=== PATIENT | female | born 1955 | race Caucasian/White ===

== ENCOUNTER 2016-10-22 11:20 | Inpatient (IN) ==
[2016-10-22] MEDS ORDERED: Ipratropium/Albuterol Neb 3 ML IH ONE (12:38)
[2016-10-22] MEDS ORDERED: methylPREDNISolone 125 MG/2 ML VIAL IVP ONE (12:38)
[2016-10-22 13:17] LABS: Basophils % 0.4 %; Eosinophils # 0.4 K/mcL (0.0-0.6); Eosinophils % 5.1 %; Hematocrit 35.4 % (35.3-44.9); Hemoglobin 11.6 g/dL (11.5-15.4); Immature Granulocytes % 0.4 % (0-4); Lymphocytes # 1.9 K/mcL (0.6-4.6); Lymphocytes % 25.1 %; Mean Corpuscular HGB Conc 32.8 g/dL (31.6-35.5); Mean Corpuscular Hemoglobin 27.7 pg (28.0-33.3); Mean Corpuscular Volume 84.5 fL (83.0-100.0); Mean Platelet Volume 9.3 fL (9.4-12.4); Monocytes # 0.5 K/mcL (0.0-1.3); Monocytes % 6.5 %; Neutrophils # 4.7 K/mcL (1.6-8.9); Platelet Count 241 K/mcL (140-400); Red Blood Count 4.19 M/mcL (3.82-4.97); Red Cell Distribution Width 14.4 % (11.5-14.5); Segmented Neutrophils % 62.5 %
--- NOTE | 2016-10-22 13:24 | Emergency Department Note ---
Disposition Clinical Impression: Acute exacerbation of chronic obstructive airways disease Disposition: Admitted As Inpatient Condition: Fair Referrals: Ray Garcia MD [Primary Care Provider] - Forms: ED Satisfaction Letter Time of Disposition: 14:23 SOB HPI - General Chief Complaint: ED Shortness of Breath/Dyspnea Stated Complaint: ROBER x2 weeks Time Seen by Provider: 10/22/16 12:32 Source: patient Limitations: no limitations Nursing Notes Reviewed: Yes Vital Signs Reviewed: Yes - History of Present Illness 61-year-old COPD comes in with increasing shortness of breath the last 2 weeks. Pt Subjective Complaint: shortness of breath, cough Onset (ago): day(s) Context: recent illness Severity: moderate Consistency/Duration: constant Improves with: nothing Worsens with: exertion Known history of: COPD Associated symptoms: Reports: cough, wheezing Treatment prior to arrival: oxygen - Related Data Home Medications Medication Instructions Recorded Confirmed Albuterol Neb [Proventil Neb] 2.5 mg IH TID 06/22/15 07/15/16 Budesonide/Formoterol 160/4.5 2 puff IH BID 06/22/15 07/15/16 [Symbicort] Roflumilast [Daliresp] 500 mcg PO QAM 06/22/15 07/15/16 Albuterol Sulfate [Proair Hfa] 2 puff IH Q4H PRN 07/14/16 07/15/16 Atorvastatin Calcium [Lipitor] 80 mg PO QAM 07/14/16 07/15/16 Cholecalciferol (Vitamin D3) 50,000 unit PO QWEEK 07/14/16 07/15/16 [Vitamin D3] Cyclobenzaprine [Flexeril] 10 mg PO HS 07/14/16 07/15/16 Sertraline [Zoloft] 50 mg PO DAILY 07/15/16 07/15/16 Previous Rx's Medication Instructions Recorded Benzonatate [Tessalon] 200 mg PO TID PRN 28 Days 07/17/16 Cefdinir [Omnicef] 300 mg PO BID 4 Days 07/17/16 Guaifenesin [Mucinex] 600 mg PO BID #30 tab.er.[id number] 07/17/16 Ipratropium/Albuterol Neb [Duoneb] 3 ml IH QIDR 14 Days 07/17/16 Metoprolol [Lopressor] 12.5 mg PO BIDWM 30 Days 07/17/16 PredniSONE 20 mg PO DAILY #12 tablet 07/17/16 Promethazine/Codeine 5 ml PO Q6HR 14 Days 07/17/16 [Phenergan/Codeine] Allergies Allergy/AdvReac Type Severity Reaction Status Date / Time omeprazole Allergy Hives Verified 07/14/16 12:33 acetaminophen [From Vicodin] AdvReac Headache Verified 07/15/16 13:34 hydrocodone [From Vicodin] AdvReac Headache Verified 07/15/16 13:34 metoprolol AdvReac Vomiting Verified 07/15/16 13:34 Constitutional: Denies: fever, chills, weakness, weight change Eyes: Denies: eye pain, eye discharge, vision change ENT ED: Denies: ear pain, throat pain, dental pain, hearing loss, epistaxis, congestion, dysphagia Cardiovascular: Denies: chest pain, palpitations, dyspnea on exertion, edema, syncope Respiratory: Reports: cough, dyspnea, wheezes. Denies: hemoptysis, stridor Gastrointestinal: Denies: abdominal pain, nausea, vomiting, diarrhea, constipation, hematemesis, melena, hematochezia Genitourinary: Denies: dysuria, frequency, hematuria, discharge Musculoskeletal: Denies: back pain, neck pain, arthralgia, myalgia Integumentary: Denies: rash, abrasion, lesions Neurological: Denies: headache, weakness, numbness, paresthesias, confusion, abnormal gait, vertigo Psychiatric: Denies: anxiety, depression, suicidal thoughts, homicidal thoughts , auditory hallucinations, visual hallucinations Endocrine: Denies: fatigue Hematological/Lymphatic: Denies: easy bleeding, easy bruising Allergic/Immunologic: Denies: facial swelling, urticaria Past Medical History - Past Medical History Medical history: Reports: CHF, COPD, diabetes, GERD, glaucoma, hyperlipidemia, hypertension, other Surgical history: Reports: cataract, other (ex lap 1979 - benign uterine tumor in ) 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: Reports: anxiety, depression - Social History Smoking Status: Former smoker Smokeless Tobacco Status: No Alcohol use: Reports: none Drug use: Reports: none Physical Exam - General Limitations: no limitations General appearance: alert, in no apparent distress - Head Head exam: atraumatic, normocephalic, normal inspection - Eye Eye exam: Present: normal appearance, PERRL, EOMI - ENT ENT exam: normal exam, normal oropharynx, mucous membranes moist - Neck Neck exam: Present: normal inspection, full ROM, trachea midline - Chest Chest inspection: Present: normal inspection, symmetric chest wall rise - Respiratory Respiratory exam: Present: respiratory distress (Mild), wheezes, accessory muscle use, prolonged expiratory phase - Cardiovascular Cardiovascular exam: Present: regular rate, normal rhythm, normal heart sounds - Abdominal Exam Abdominal exam: Present: soft, Non-Tender. Absent: tenderness, distention, guarding, rebound, rigidity - Extremities Exam Extremities exam: Present: normal inspection, full ROM. Absent: tenderness, pedal edema - Expanded Lower Extremity Exam Neurovascular/Tendon exam: Absent: motor deficit, sensory deficit, tendon deficit Gait: observed and normal - Back Exam Back exam: Present: normal inspection, full ROM. Absent: tenderness - Neurological Exam Neurological exam: Present: alert, oriented X3 - Psychiatric Psychiatric exam: Present: normal affect, normal mood - Skin Skin exam: Present: warm, dry, intact, normal color Course - Reevaluation(s) Reevaluation #1: 61 Yo female with a history of COPD with increasing shortness of breath. Time: 14:22 - Consultations Consultation #1: Discussed with , admit. Time: 14:23 Vital Signs Temperature 98.2 F 10/22/16 12:11 Pulse Rate 101 10/22/16 12:11 Respiratory Rate 24 10/22/16 12:11 Blood Pressure 118/75 10/22/16 12:11 O2 Sat by Pulse Oximetry 92 L 10/22/16 12:11 Temperature 98.2 F 10/22/16 12:11 Pulse Rate 83 10/22/16 13:34 Respiratory Rate 24 10/22/16 12:51 Blood Pressure 120/77 10/22/16 13:34 O2 Sat by Pulse Oximetry 97 10/22/16 13:34 Oxygen Delivery Oxygen Delivery Nasal Cannula Shortness of Breath/Dyspnea - Lab Data Result diagrams: 10/22/16 12:59 10/22/16 12:59 Lab Results 10/22/16 10/22/16 10/22/16 Range/Units 12:59 12:59 12:59 WBC 7.5 (4.3-11.1) K/mcL RBC 4.19 (3.82-4.97) M/mcL Hgb 11.6 (11.5-15.4) g/dL Hct 35.4 (35.3-44.9) % MCV 84.5 (83.0-100.0) fL MCH 27.7 L (28.0-33.3) pg MCHC 32.8 (31.6-35.5) g/dL RDW 14.4 (11.5-14.5) % Plt Count 241 (140-400) K/mcL MPV 9.3 L (9.4-12.4) fL Immature Gran % 0.4 (0-4) % Seg Neutrophils % 62.5 % Lymphocytes % 25.1 % Monocytes % 6.5 % Eosinophils % 5.1 % Basophils % 0.4 % Neutrophils # 4.7 (1.6-8.9) K/mcL Lymphocytes # 1.9 (0.6-4.6) K/mcL Monocytes # 0.5 (0.0-1.3) K/mcL Eosinophils # 0.4 (0.0-0.6) K/mcL Basophils # 0.0 (0.0-0.2) K/mcL Sodium 139 (136-145) mEq/L Potassium 4.1 (3.5-4.5) mEq/L Chloride 106 (98-109) mEq/L Carbon Dioxide 26 (19-29) mEq/L BUN 15 (7-20) mg/dL Creatinine 0.69 (0.57-1.11) mg/dL Est GFR ( Amer) > 60 (> 60) Est GFR (Non-Af Amer) > 60 (> 60) BUN/Creatinine Ratio 22 (6-26) Glucose 106 H (70-99) mg/dL Calculated Osmolality 289 (280-300) Calcium 9.4 (8.6-10.8) mg/dL Troponin I 0.00 (0-0.03) ng/mL B-Natriuretic Peptide (0-100) pg/mL 10/22/16 Range/Units 12:59 WBC (4.3-11.1) K/mcL RBC (3.82-4.97) M/mcL Hgb (11.5-15.4) g/dL Hct (35.3-44.9) % MCV (83.0-100.0) fL MCH (28.0-33.3) pg MCHC (31.6-35.5) g/dL RDW (11.5-14.5) % Plt Count (140-400) K/mcL MPV (9.4-12.4) fL Immature Gran % (0-4) % Seg Neutrophils % % Lymphocytes % % Monocytes % % Eosinophils % % Basophils % % Neutrophils # (1.6-8.9) K/mcL Lymphocytes # (0.6-4.6) K/mcL Monocytes # (0.0-1.3) K/mcL Eosinophils # (0.0-0.6) K/mcL Basophils # (0.0-0.2) K/mcL Sodium (136-145) mEq/L Potassium (3.5-4.5) mEq/L Chloride (98-109) mEq/L Carbon Dioxide (19-29) mEq/L BUN (7-20) mg/dL Creatinine (0.57-1.11) mg/dL Est GFR ( Amer) (> 60) Est GFR (Non-Af Amer) (> 60) BUN/Creatinine Ratio (6-26) Glucose (70-99) mg/dL Calculated Osmolality (280-300) Calcium (8.6-10.8) mg/dL Troponin I (0-0.03) ng/mL B-Natriuretic Peptide < 10 (0-100) pg/mL
[2016-10-22 13:27] LABS: BUN/Creatinine Ratio 22 (6-26); Blood Urea Nitrogen 15 mg/dL (7-20); Calcium 9.4 mg/dL (8.6-10.8); Carbon Dioxide 26 mEq/L (19-29); Chloride 106 mEq/L (98-109); Glucose 106 mg/dL (70-99); Osmolality,Calculated 289 (280-300); Potassium 4.1 mEq/L (3.5-4.5); Sodium 139 mEq/L (136-145); eGFR For African Americans > 60 (> 60); eGFR For Non-African Americans > 60 (> 60)
[2016-10-22] MEDS ORDERED: Azithromycin 500 MG in D5% in Water 250 ML IVPB ONE (14:21)
[2016-10-22] MEDS ORDERED: Naloxone 0.4 MG/ML INJ IVP PRN (14:46)
[2016-10-22] MEDS ORDERED: Albuterol 2.5 MG/3 ML NEBULIZER IH PRN (14:51)
--- NOTE | 2016-10-22 15:06 | Internal Med History&Physical ---
<Maxi Ponce - Last Filed: 10/22/16 19:40> Date of Encounter: 10/22/16 Internal Medicine - H&P: HPI History of present illness: Ms. Leon is a 61 year old female Internal Medicine - H&P: Meds Albuterol Neb [Proventil Neb] 2.5 mg IH QID PRN 06/22/15 [History] Budesonide/Formoterol 160/4.5 [Symbicort] 2 puff IH BID 06/22/15 [History] Roflumilast [Daliresp] 500 mcg PO QAM 06/22/15 [History] Albuterol Sulfate [Proair Hfa] 2 puff IH Q4H PRN 07/14/16 [History] Atorvastatin Calcium [Lipitor] 80 mg PO QAM 07/14/16 [History] Sertraline [Zoloft] 50 mg PO DAILY 07/15/16 [History] Metoprolol [Lopressor] 12.5 mg PO BIDWM 30 Days 07/17/16 [Rx] Aspirin Enteric Coated [Aspirin EC] 81 mg PO DAILY 10/22/16 [History] Cyanocobalamin (Vitamin B-12) [Vitamin B-12] 500 mcg PO DAILY 10/22/16 [History] Cyclosporine [Restasis] 1 each OP BID 10/22/16 [History] Ergocalciferol (VITAMIN D2) [Vitamin D] 800 unit PO DAILY 10/22/16 [History] Ferrous Sulfate 325 mg PO DAILY 10/22/16 [History] Furosemide [Lasix] 20 mg PO DAILY 10/22/16 [History] Guaifenesin [Mucinex] 600 mg PO Q12H PRN 10/22/16 [History] Olopatadine HCl [Pataday] 1 drop BOTH EYES QAM 10/22/16 [History] Omeprazole [PriLOSEC] 20 mg PO DAILY 10/22/16 [History] Potassium Chloride [K-Tab ER] 20 meq PO DAILY 10/22/16 [History] Travoprost [Travatan Z] 1 drop OP QPM 10/22/16 [History] Allergies methylprednisolone [From Solu-Medrol] Allergy (Verified 10/22/16 15:40) Itching acetaminophen [From Vicodin] Adverse Reaction (Verified 07/15/16 13:34) Headache hydrocodone [From Vicodin] Adverse Reaction (Verified 07/15/16 13:34) Headache All Systems PM: A 10-system review of systems was performed and is negative for pertinent findings except as documented above in the HPI. - Constitutional Vitals: Temp Pulse Resp BP Pulse Ox 98.2 F 98 20 99/61 95 10/22/16 19:02 10/22/16 19:02 10/22/16 19:02 10/22/16 19:02 10/22/16 19:02 Internal Med - H&P Results - Labs CBC & Chem 7: 10/22/16 12:59 10/22/16 12:59 - Attending Attestation I examined this patient and my medical decision-making was reviewed with the Advanced Practice Provider. I agree with the documented findings, disposition and treatment plan as described except to the extent set forth below. Patient presented to the hospital with shortness of breath. On exam she has bilateral expiratory wheezes and prolonged expiratory phase. She states that in the past she developed itchiness after treatment with Solu-Medrol however there are times when she has no adverse reaction. She received Solu-Medrol IV earlier today in the emergency department and had no description of any adverse reaction. I suspect she likely does not have a true allergy to methylprednisolone and therefore will continue therapy with IV Solu-Medrol while closely monitoring for side effects. <Ilda Jackson M - Last Filed: 10/22/16 22:20> Date of Encounter: 10/22/16 Time of Encounter: 15:02 Assessment and Plan (1) Acute exacerbation of chronic obstructive airways disease Current visit: Yes Status: Acute Patient with increased shortness of breath and productive cough. She has increased oxygen requirements as well, needing 3L around the clock versus her baseline of 2.5L at night and PRN. Solumedrol 80mg IVP BID Duoneb treatments QIDR Albuterol Nebulizer Q2 PRN Azithromycin 500mg IVPB daily Guaifenisen 600mg BID Tessalon PRN for cough Continue home dose of Roflumilast and budesonide/formotorol. titrate O2 to maintain oxygen saturation > 90%. (2) Pre-diabetes Current visit: Yes Status: Acute Last Hgb A1c of 6.3% in June. Patient will be getting steroids as treatment for her COPD exacerbation. Diabetic diet check blood sugars ACHS Sliding scale correction dose TIDWM hypoglycemic protocol. (3) Chronic respiratory failure Current visit: No Status: Acute Patient requires 2.5L of oxygen at home overnight and as needed during the day. In the last few weeks, she has needed to increase to 3L around the clock. Solumedrol 80mg IVP BID Duoneb treatments QIDR Albuterol Nebulizer Q2 PRN Continue home dose of Roflumilast and budesonide/formotorol. titrate O2 to maintain oxygen saturation > 90%. Qualifiers: Respiratory failure complication: hypoxia Qualified Code(s): J96.11 - Chronic respiratory failure with hypoxia (4) DVT prophylaxis Current visit: No Status: Acute Encourage ambulation anti-embolic stockings Lovenox 40mg SQ daily Internal Medicine - H&P: HPI Chief complaint: shortness of breath Admitted From: Emergency Dept Plans for Post Hospital Care: Home History of present illness: Ms. Leon is a 61 year old female with hypertension, hyperlipidemia, borderline diabetes, COPD who presented to the emergency department today with increasing shortness of breath. Patient reports that a few weeks ago she started coughing and her coughing and shortness of breath has been worsening ever since. She normally uses 2.5 L of oxygen by nasal cannula overnight and as needed during the day, but lately she has not been needing 3 L all the time. Her cough is productive of clear to whitish sputum. She has been wheezing, and she has been experiencing chest tightness. Evaluation in the emergency department included a chest x-ray that showed no acute process, troponin was negative, white blood cell count was normal at 7.5. She received 125 mg of Solu -Medrol and DuoNeb treatment as well as the first dose of azithromycin in the emergency department. On exam, patient is alert and oriented, in no acute distress. She is audible wheezes. Lungs have diffuse wheezing and rhonchi bilaterally. Heart has regular rate and rhythm. Past Med Surg Social Fam HX - Past Medical History Medical history: COPD, diabetes, GERD, glaucoma, hyperlipidemia, hypertension, other 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: anxiety, depression - Past Surgical History Surgical History: cataract, other (ex lap 1979 - benign uterine tumor in ) - Social History Smoking Status: Former smoker (100+ pack year history) Smokeless Tobacco Status: No Alcohol use: none Drug use: none - Family History Mother Adopted: No Living Status: Hx Family Cancer: Yes (pancreatic) Father Living Status: Hx Family Endocrine Disorder: Yes (diabetes) All Systems PM: A 10-system review of systems was performed and is negative for pertinent findings except as documented above in the HPI. - Constitutional Constitutional: no chills, no fever(s), no night sweats - EENT Eyes: no change in vision, no discharge, no pain, no photophobia Ears: no ear discharge, no ear pain, no tinnitus Nose, mouth and throat: no dysphagia, no nasal discharge, no neck pain, no sore throat - Cardiovascular Cardiovascular ROS IM: no chest pain, no diaphoresis, no dyspnea, no lightheadedness, no palpitations, no syncope - Respiratory Respiratory: cough, dyspnea, dyspnea on exertion, wheezing, pain on inspiration , chest congestion, excessive phlegm production - Gastrointestinal Gastrointestinal: no abdominal pain, no diarrhea, no hematemesis, no hematochezia, no melena, no nausea, no vomiting - Genitourinary Genitourinary: no change in urinary stream, no dysuria, no flank pain, no hematuria - Musculoskeletal Musculoskeletal ROS IM: no numbness, no tingling - Integumentary Integumentary IM: no rash, no unusual bruising - Neurological Neurological ROS: no confusion, no convulsions, no focal weakness, no numbness, no tingling, no tremor(s) - Hematologic/Lymphatic Hematologic/Lymphatic: no easy bruising - Constitutional Vitals: Temp Pulse Resp BP Pulse Ox 98.2 F 83 24 120/77 97 10/22/16 12:11 10/22/16 13:34 10/22/16 12:51 10/22/16 13:34 10/22/16 13:34 General appearance: Present: A&O X 3, pleasant, no acute distress - Head Head exam: Present: atraumatic, normocephalic - Eye Eye exam: Present: PERRL, conjuntiva pink, sclera anicteric Pupils: Present: PERRL - Neck Neck exam general surgery: Present: supple, trachea midline. Absent: lymphadenopathy - Respiratory Respiratory exam: Present: prolonged expiratory phase, rhonchi, wheezes. Absent : accessory muscle use, rales - Cardiovascular Cardiovascular exam: Present: RRR, +S1, +S2. Absent: diastolic murmur, gallop, rubs, systolic murmur - GI/Abdominal GI/Abdominal exam: Present: normal bowel sounds, soft, no peritoneal signs. Absent: distended, tenderness - Extremities Exam Extremities exam: Present: warm, radial pulses palpable and symetrical. Absent : calf tenderness, cyanotic, pedal edema - Neurological Exam Neurological exam: Present: CN II-XII intact, oriented X3, no focal deficits. Absent: facial droop, speech deficit - Skin Skin exam: Present: dry, intact Internal Med - H&P Results - Labs CBC & Chem 7: 10/22/16 12:59 10/22/16 12:59 Labs: All Lab Results (24 Hours) 10/22/16 10/22/16 10/22/16 Range/Units 12:59 12:59 12:59 WBC 7.5 (4.3-11.1) K/mcL RBC 4.19 (3.82-4.97) M/mcL Hgb 11.6 (11.5-15.4) g/dL Hct 35.4 (35.3-44.9) % MCV 84.5 (83.0-100.0) fL MCH 27.7 L (28.0-33.3) pg MCHC 32.8 (31.6-35.5) g/dL RDW 14.4 (11.5-14.5) % Plt Count 241 (140-400) K/mcL MPV 9.3 L (9.4-12.4) fL Immature Gran % 0.4 (0-4) % Seg Neutrophils % 62.5 % Lymphocytes % 25.1 % Monocytes % 6.5 % Eosinophils % 5.1 % Basophils % 0.4 % Neutrophils # 4.7 (1.6-8.9) K/mcL Lymphocytes # 1.9 (0.6-4.6) K/mcL Monocytes # 0.5 (0.0-1.3) K/mcL Eosinophils # 0.4 (0.0-0.6) K/mcL Basophils # 0.0 (0.0-0.2) K/mcL Sodium 139 (136-145) mEq/L Potassium 4.1 (3.5-4.5) mEq/L Chloride 106 (98-109) mEq/L Carbon Dioxide 26 (19-29) mEq/L BUN 15 (7-20) mg/dL Creatinine 0.69 (0.57-1.11) mg/dL Est GFR ( Amer) > 60 (> 60) Est GFR (Non-Af Amer) > 60 (> 60) BUN/Creatinine Ratio 22 (6-26) Glucose 106 H (70-99) mg/dL Calculated Osmolality 289 (280-300) Calcium 9.4 (8.6-10.8) mg/dL Troponin I 0.00 (0-0.03) ng/mL B-Natriuretic Peptide (0-100) pg/mL 10/22/16 Range/Units 12:59 WBC (4.3-11.1) K/mcL RBC (3.82-4.97) M/mcL Hgb (11.5-15.4) g/dL Hct (35.3-44.9) % MCV (83.0-100.0) fL MCH (28.0-33.3) pg MCHC (31.6-35.5) g/dL RDW (11.5-14.5) % Plt Count (140-400) K/mcL MPV (9.4-12.4) fL Immature Gran % (0-4) % Seg Neutrophils % % Lymphocytes % % Monocytes % % Eosinophils % % Basophils % % Neutrophils # (1.6-8.9) K/mcL Lymphocytes # (0.6-4.6) K/mcL Monocytes # (0.0-1.3) K/mcL Eosinophils # (0.0-0.6) K/mcL Basophils # (0.0-0.2) K/mcL Sodium (136-145) mEq/L Potassium (3.5-4.5) mEq/L Chloride (98-109) mEq/L Carbon Dioxide (19-29) mEq/L BUN (7-20) mg/dL Creatinine (0.57-1.11) mg/dL Est GFR ( Amer) (> 60) Est GFR (Non-Af Amer) (> 60) BUN/Creatinine Ratio (6-26) Glucose (70-99) mg/dL Calculated Osmolality (280-300) Calcium (8.6-10.8) mg/dL Troponin I (0-0.03) ng/mL B-Natriuretic Peptide < 10 (0-100) pg/mL
[2016-10-22] MEDS ORDERED: Dextrose Gel 15 GM PO PRN ×2 (15:13)
[2016-10-22] MEDS ORDERED: *HR* Dextrose 50 % in Water (Syg) 50 ML SYRINGE IVP PRN (15:13)
[2016-10-22] MEDS ORDERED: D5% in Water 1,000 ML IV PRN (15:13)
[2016-10-22] MEDS: Ipratropium/Albuterol Neb 3 ML IH SCH ×2 (16:14→21:50)
[2016-10-22] MEDS: Insulin LISPRO 300 UNITS/3 ML VIAL SQ SCH (16:46)
[2016-10-22] MEDS: methylPREDNISolone 125 MG/2 ML VIAL IVP SCH (16:47)
[2016-10-22 16:50] LABS: Hemoglobin A1C 6.5 %
[2016-10-22] MEDS: Benzonatate 100 MG CAPSULE PO PRN (21:15)
[2016-10-22] MEDS: Ibuprofen 400 MG TABLET PO PRN (21:24)
[2016-10-22] MEDS: Budesonide/Formoterol 160/4.5 MDI IH SCH (21:51)
[2016-10-23] MEDS: Ipratropium/Albuterol Neb 3 ML IH SCH ×5 (03:31→23:43)
--- NOTE | 2016-10-23 04:02 | Electrocardiograph Report ---
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
[2016-10-23] MEDS: *HR* Enoxaparin 40 MG/0.4 ML SYRINGE SQ SCH (06:24)
[2016-10-23] MEDS: Benzonatate 100 MG CAPSULE PO PRN (06:24)
[2016-10-23] MEDS: methylPREDNISolone 125 MG/2 ML VIAL IVP SCH ×2 (06:24→17:33)
[2016-10-23] MEDS: Insulin LISPRO 300 UNITS/3 ML VIAL SQ SCH ×3 (07:14→17:32)
[2016-10-23 07:26] LABS: BUN/Creatinine Ratio 25 (6-26); Blood Urea Nitrogen 19 mg/dL (7-20); Calcium 9.4 mg/dL (8.6-10.8); Carbon Dioxide 22 mEq/L (19-29); Chloride 104 mEq/L (98-109); Glucose 159 mg/dL (70-99); Osmolality,Calculated 292 (280-300); Sodium 138 mEq/L (136-145); eGFR For African Americans > 60 (> 60); eGFR For Non-African Americans > 60 (> 60)
[2016-10-23 07:31] LABS: Basophils % 0.1 %; Hematocrit 36.2 % (35.3-44.9); Hemoglobin 11.5 g/dL (11.5-15.4); Immature Granulocytes % 0.6 % (0-4); Lymphocytes % 9.1 %; Mean Corpuscular HGB Conc 31.8 g/dL (31.6-35.5); Mean Corpuscular Hemoglobin 27.4 pg (28.0-33.3); Mean Corpuscular Volume 86.4 fL (83.0-100.0); Mean Platelet Volume 9.8 fL (9.4-12.4); Monocytes # 0.3 K/mcL (0.0-1.3); Neutrophils # 9.5 K/mcL (1.6-8.9); Platelet Count 249 K/mcL (140-400); Red Blood Count 4.19 M/mcL (3.82-4.97); Red Cell Distribution Width 14.6 % (11.5-14.5); Segmented Neutrophils % 87.2 %
[2016-10-23 07:53] LABS: Potassium 4.7 mEq/L (3.5-4.5)
[2016-10-23] MEDS ORDERED: (Roflumilast [Daliresp] 500 MCG) PO SCH (09:00)
--- NOTE | 2016-10-23 10:13 | Internal Med Progress Note ---
Date of Encounter: 10/23/16 Time of Encounter: 08:45 - Assessment and plan (1) Acute exacerbation of chronic obstructive airways disease Current Visit: Yes Status: Acute Assessment and plan: Patient with persistent, productive cough with thick white sputum. Patient stating her shortness of breath has not improved since admission. Duo nebs changed to every 4. Continue Solu-Medrol. We will continue pulmonary toilet. On examination, aeration poor to fair with diffuse expiratory wheezing present. Moderate respiratory distress. ITS Impressions Chest X-Ray 10/22/16 12:16 IMPRESSION: No acute process. D/ / Hari Rossi MD / Hari Rossi MD Interpreting Provider: Hari Rossi MD (2) CHF (congestive heart failure) Current Visit: No Status: Chronic Assessment and plan: Patient had an echocardiogram on 06/06 4/6 ejection fraction of 60-65%. She is on furosemide at home, suspect chronic diastolic heart failure. No acute exacerbation, holding furosemide at this time. (3) COPD (chronic obstructive pulmonary disease) Current Visit: No Status: Chronic (4) Chronic respiratory failure Current Visit: No Status: Chronic Assessment and plan: Acute on chronic. At home, patient is usually on 2.5 L per nasal cannula at bedtime and as needed throughout the day however lately, she has been on 3 L continuously. She is currently on 3 L, will continue to trend, she will likely need qualified for continuous oxygen upon disposition Qualifiers: Respiratory failure complication: hypoxia Qualified Code(s): J96.11 - Chronic respiratory failure with hypoxia (5) DVT prophylaxis Current Visit: No Status: Acute Assessment and plan: Subcutaneous Lovenox (6) GERD (gastroesophageal reflux disease) Current Visit: No Status: Chronic (7) Diabetes Current Visit: No Status: Chronic Assessment and plan: A1c 6.5%-this appears to be a new diagnosis for her as she is not on any diabetes medications at home, follow-up outpatient, will have low-dose sliding scale while admitted given that she is getting steroids Qualifiers: Diabetes mellitus type: type 2 Diabetes mellitus complication status: without complication Diabetes mellitus continuous churn buttermaker insulin use: without snf use Qualified Code(s): E11.9 - Type 2 diabetes mellitus without complications (8) Essential hypertension Current Visit: No Status: Chronic Assessment and plan: Controlled. At home, she is on metoprolol 12.5 twice a day, furosemide 20 mg daily. Will hold furosemide at this time and continue her Lopressor (9) Former heavy tobacco smoker Current Visit: Yes Status: Chronic Assessment and plan: Patient stating she smoked 3-4 packs per day for 35 years. She states that she has not smoked since 1993. - Subjective Interval history: Patient seen and examined. On examination, patient sitting upright on the side of her bed eating breakfast. She states her shortness of breath has not improved thus far. She complains of a severe persistent cough that is "making my whole body hurt." - Constitutional Vitals: Temp Pulse Resp BP Pulse Ox 97.7 F 92 14 116/67 96 10/23/16 07:13 10/23/16 07:13 10/23/16 07:13 10/23/16 07:13 10/23/16 07:13 General appearance: Present: mild distress (moderate), A&O X 3, pleasant, answers questions appropriately - Head Head exam: Present: atraumatic, normocephalic - Eye Eye exam: Present: PERRL, conjuntiva pink, sclera anicteric Pupils: Present: PERRL - Neck Neck exam general surgery: Present: supple, trachea midline. Absent: lymphadenopathy - Respiratory Respiratory exam: Present: accessory muscle use, decreased breath sounds, prolonged expiratory phase, respiratory distress, wheezes. Absent: rales, rhonchi - Cardiovascular Cardiovascular exam: Present: RRR, +S1, +S2. Absent: diastolic murmur, gallop, rubs, systolic murmur - GI/Abdominal GI/Abdominal exam: Present: normal bowel sounds, soft, no peritoneal signs. Absent: distended, tenderness - Extremities Exam Extremities exam: Present: warm, radial pulses palpable and symetrical. Absent : calf tenderness, cyanotic, pedal edema - Neurological Exam Neurological exam: Present: alert, CN II-XII intact, normal gait, oriented X3, no focal deficits, strengths equal and symetr throughout. Absent: pronater drift, facial droop, speech deficit - Skin Skin exam: Present: dry, intact, pallor, warm Internal Medicine: Result - Labs CBC & Chem 7: 10/23/16 06:11 10/23/16 06:11 Labs: Short CBC 10/23/16 Range/Units 06:11 WBC 10.9 (4.3-11.1) K/mcL Hgb 11.5 (11.5-15.4) g/dL Hct 36.2 (35.3-44.9) % Plt Count 249 (140-400) K/mcL Neutrophils # 9.5 H (1.6-8.9) K/mcL BMP 10/23/16 06:11 Sodium 138 Potassium 4.7 H Chloride 104 Carbon Dioxide 22 BUN 19 Creatinine 0.75 Glucose 159 H Calcium 9.4 - VTE Documentation of Mechanical Device: Graduated compression elastic hosiery Consult Discharge Plan - Plan Referrals: Ray Garcia MD [Primary Care Provider] -
[2016-10-23] MEDS: Budesonide/Formoterol 160/4.5 MDI IH SCH ×2 (11:00→21:23)
[2016-10-23] MEDS: Aspirin Enteric Coated 81 MG Tablet PO SCH (11:26)
[2016-10-23] MEDS: Azithromycin 500 MG in D5% in Water 250 ML IVPB SCH (14:41)
[2016-10-23] MEDS ORDERED: *HR* OxyCODONE/APAP 5/325 TABLET PO PRN (18:28)
[2016-10-24] MEDS: Ipratropium/Albuterol Neb 3 ML IH SCH ×6 (03:39→23:15)
[2016-10-24 05:01] LABS: BUN/Creatinine Ratio 28 (6-26); Blood Urea Nitrogen 21 mg/dL (7-20); Calcium 9.1 mg/dL (8.6-10.8); Carbon Dioxide 23 mEq/L (19-29); Chloride 107 mEq/L (98-109); Glucose 234 mg/dL (70-99); Osmolality,Calculated 301 (280-300); Potassium 4.2 mEq/L (3.5-4.5); Sodium 140 mEq/L (136-145); eGFR For African Americans > 60 (> 60); eGFR For Non-African Americans > 60 (> 60)
[2016-10-24] MEDS: methylPREDNISolone 125 MG/2 ML VIAL IVP SCH ×2 (06:00→18:12)
[2016-10-24] MEDS: *HR* Enoxaparin 40 MG/0.4 ML SYRINGE SQ SCH (06:03)
[2016-10-24] MEDS: Budesonide/Formoterol 160/4.5 MDI IH SCH ×2 (07:49→20:29)
[2016-10-24] MEDS: Aspirin Enteric Coated 81 MG Tablet PO SCH (09:29)
[2016-10-24] MEDS: (Roflumilast [Daliresp] 500 MCG) PO SCH (09:30)
[2016-10-24] MEDS: Insulin LISPRO 300 UNITS/3 ML VIAL SQ SCH ×3 (09:33→18:12)
--- NOTE | 2016-10-24 13:31 | Internal Med Progress Note ---
Date of Encounter: 10/24/16 Time of Encounter: 10:00 - Assessment and plan (1) Acute exacerbation of chronic obstructive airways disease Current Visit: Yes Status: Acute Assessment and plan: Patient with persistent, productive cough with thick white sputum. Patient states she feels better but is not back to her baseline and continues to endorse a severe cough. On examination, aeration slightly improved from yesterday though remains poor to fair. Continue Solu-Medrol. We will continue pulmonary toilet. Mild to moderate respiratory distress. Possible discharge tomorrow pending clinical outcomes. ITS Impressions Chest X-Ray 10/22/16 12:16 IMPRESSION: No acute process. D/ / Hari Rossi MD / Hari Rossi MD Interpreting Provider: Hari Rossi MD (2) CHF (congestive heart failure) Current Visit: No Status: Chronic Assessment and plan: Patient had an echocardiogram on 06/06 4/6 ejection fraction of 60-65%. She is on furosemide at home, suspect chronic diastolic heart failure. No acute exacerbation, holding furosemide at this time. (3) COPD (chronic obstructive pulmonary disease) Current Visit: No Status: Chronic (4) Chronic respiratory failure Current Visit: No Status: Chronic Assessment and plan: Acute on chronic. At home, patient is usually on 2.5 L per nasal cannula at bedtime and as needed throughout the day however lately, she has been on 3 L continuously. She is currently on 2.5L, will continue to trend, she will likely need qualified for continuous oxygen upon disposition Qualifiers: Respiratory failure complication: hypoxia Qualified Code(s): J96.11 - Chronic respiratory failure with hypoxia (5) DVT prophylaxis Current Visit: No Status: Acute Assessment and plan: Subcutaneous Lovenox (6) GERD (gastroesophageal reflux disease) Current Visit: No Status: Chronic (7) Diabetes Current Visit: No Status: Chronic Assessment and plan: A1c 6.5%-this appears to be a new diagnosis for her as she is not on any diabetes medications at home, follow-up outpatient, will have low-dose sliding scale while admitted given that she is getting steroids Qualifiers: Diabetes mellitus type: type 2 Diabetes mellitus complication status: without complication Diabetes mellitus supervisor long goods insulin use: without supervisor long goods use Qualified Code(s): E11.9 - Type 2 diabetes mellitus without complications (8) Essential hypertension Current Visit: No Status: Chronic Assessment and plan: Controlled. At home, she is on metoprolol 12.5 twice a day, furosemide 20 mg daily. Will hold furosemide at this time and continue her Lopressor (9) Former heavy tobacco smoker Current Visit: Yes Status: Chronic Assessment and plan: Patient stating she smoked 3-4 packs per day for 35 years. She states that she has not smoked since 1993. - Subjective Interval history: Patient seen and examined. On examination, patient sitting upright on the side of her bed talking on the telephone. She states she is feeling better but continues to endorse a severe cough. She is endorsing a normal appetite. - Constitutional Vitals: Temp Pulse Resp BP Pulse Ox 97.6 F 98 15 144/84 95 10/24/16 10:41 10/24/16 10:41 10/24/16 11:22 10/24/16 10:41 10/24/16 11:22 General appearance: Present: mild distress (moderate), A&O X 3, pleasant, answers questions appropriately - Head Head exam: Present: atraumatic, normocephalic - Eye Eye exam: Present: PERRL, conjuntiva pink, sclera anicteric Pupils: Present: PERRL - Neck Neck exam general surgery: Present: supple, trachea midline. Absent: lymphadenopathy - Respiratory Respiratory exam: Present: accessory muscle use, decreased breath sounds, prolonged expiratory phase, respiratory distress, wheezes. Absent: CTAB, rales , rhonchi - Cardiovascular Cardiovascular exam: Present: RRR, +S1, +S2. Absent: diastolic murmur, gallop, rubs, systolic murmur - GI/Abdominal GI/Abdominal exam: Present: normal bowel sounds, soft, no peritoneal signs. Absent: distended, tenderness - Extremities Exam Extremities exam: Present: warm, radial pulses palpable and symetrical. Absent : calf tenderness, cyanotic, pedal edema - Neurological Exam Neurological exam: Present: alert, CN II-XII intact, oriented X3, no focal deficits, strengths equal and symetr throughout. Absent: pronater drift, facial droop, speech deficit - Skin Skin exam: Present: dry, intact, pallor, warm Internal Medicine: Result - Labs CBC & Chem 7: 10/23/16 06:11 10/24/16 04:00 Labs: BMP 10/24/16 04:00 Sodium 140 Potassium 4.2 Chloride 107 Carbon Dioxide 23 BUN 21 H Creatinine 0.76 Glucose 234 H Calcium 9.1 - VTE Documentation of Mechanical Device: Graduated compression elastic hosiery Consult Discharge Plan - Plan Referrals: Ray Garcia MD [Primary Care Provider] -
[2016-10-24] MEDS: Benzonatate 100 MG CAPSULE PO SCH ×2 (18:11→21:28)
[2016-10-24] MEDS: Azithromycin 500 MG in D5% in Water 250 ML IVPB SCH (18:11)
[2016-10-24] MEDS: Ibuprofen 400 MG TABLET PO PRN (19:46)
[2016-10-25] MEDS: Ipratropium/Albuterol Neb 3 ML IH SCH ×6 (04:37→22:55)
[2016-10-25] MEDS: methylPREDNISolone 125 MG/2 ML VIAL IVP SCH (06:11)
[2016-10-25] MEDS: *HR* Enoxaparin 40 MG/0.4 ML SYRINGE SQ SCH (06:13)
[2016-10-25] MEDS: Insulin LISPRO 300 UNITS/3 ML VIAL SQ SCH ×3 (08:47→16:43)
[2016-10-25] MEDS: Benzonatate 100 MG CAPSULE PO SCH ×3 (08:47→20:28)
[2016-10-25] MEDS: Aspirin Enteric Coated 81 MG Tablet PO SCH (08:48)
[2016-10-25] MEDS: Furosemide 20 MG TABLET PO SCH (08:49)
[2016-10-25] MEDS: (Roflumilast [Daliresp] 500 MCG) PO SCH (08:49)
[2016-10-25] MEDS: Budesonide/Formoterol 160/4.5 MDI IH SCH ×2 (11:19→20:32)
[2016-10-25] MEDS ORDERED: GuaiFENesin/Codeine Oral Soln 5 ML UDC PO PRN (13:41)
[2016-10-25] MEDS ORDERED: Ipratropium/Albuterol Neb 3 ML IH PRN (13:59)
[2016-10-25] MEDS: Azithromycin 500 MG in D5% in Water 250 ML IVPB SCH (14:03)
--- NOTE | 2016-10-25 14:05 | Internal Med Progress Note ---
Date of Encounter: 10/25/16 Time of Encounter: 13:30 - Assessment and plan (1) Acute exacerbation of chronic obstructive airways disease Current Visit: Yes Status: Acute Assessment and plan: continue systemic steroids and bronchodilator support Decreased Solumedrol to 40mg IV q12h Continue O2 supplementation (pt reports of being on home oxygen) monitor O2 sat, goal O2 sat: 89-92% continue IV abx pt reports of being on home oxygen (2) Cough Current Visit: Yes Status: Acute Assessment and plan: added Guaifenesin with codeine prn cough (3) CHF (congestive heart failure) Current Visit: No Status: Chronic Assessment and plan: Not in acute exacerbation continue home dose of lasix Qualifiers: Congestive heart failure type: diastolic Congestive heart failure chronicity: chronic Qualified Code(s): I50.32 - Chronic diastolic (congestive ) heart failure (4) Diabetes Current Visit: No Status: Chronic Assessment and plan: New onset DM HbA1C: 6.5 currently hyperglycemia likely secondary to steroid therapy will closely monitor fingerstick and blood glucose continue sliding scale insulin therapy chemical educator counseling requested. Qualifiers: Diabetes mellitus type: type 2 Diabetes mellitus complication status: without complication Diabetes mellitus skilled nursing insulin use: without termite control service representative use Qualified Code(s): E11.9 - Type 2 diabetes mellitus without complications (5) Essential hypertension Current Visit: No Status: Chronic Assessment and plan: BP within acceptable range continue home medications (6) Hyperlipidemia Current Visit: No Status: Chronic Assessment and plan: continue home medications Qualifiers: Hyperlipidemia type: mixed hyperlipidemia Qualified Code(s): E78.2 - Mixed hyperlipidemia (7) Former heavy tobacco smoker Current Visit: Yes Status: Chronic Assessment and plan: Hx of 4ppd x 35years. Quit in 94. (8) DVT prophylaxis Current Visit: No Status: Acute Assessment and plan: Heparin SQ (9) Obesity Current Visit: Yes Status: Chronic Qualifiers: Obesity type: unspecified obesity type Obesity severity: non-morbid Qualified Code(s): E66.9 - Obesity, unspecified - Subjective Interval history: Patient is a 61y/o female who is admitted for acute respiratory distress secondary to COPD exacerbation. Patient seen and examined at bedside. Patient ambulating around the room however continues to have spells of cough that make her turn cyanotic. States she feels better however the cough is not improving. - Constitutional Vitals: Temp Pulse Resp BP Pulse Ox 98.2 F 97 18 120/73 94 L 10/25/16 11:15 10/25/16 11:15 10/25/16 11:19 10/25/16 11:15 10/25/16 11:19 General appearance: Present: A&O X 3, pleasant, no acute distress, obese, answers questions appropriately - Head Head exam: Present: atraumatic, normocephalic - Eye Eye exam: Present: normal appearance, conjuntiva pink, sclera anicteric - Respiratory Respiratory exam: Present: wheezes (bilateral expiratory wheezing). Absent: respiratory distress - Cardiovascular Cardiovascular exam: Present: RRR, +S1, +S2 - GI/Abdominal GI/Abdominal exam: Present: normal bowel sounds, soft, no peritoneal signs. Absent: distended, tenderness - Extremities Exam Extremities exam: Present: warm, radial pulses palpable and symetrical. Absent : calf tenderness, pedal edema, tenderness - Neurological Exam Neurological exam: Present: alert, oriented X3, no focal deficits - Psychiatric Psychiatric exam: Present: normal affect, normal mood Internal Medicine: Result - Labs CBC & Chem 7: 10/23/16 06:11 10/24/16 04:00 - VTE Documentation of Mechanical Device: Graduated compression elastic hosiery Consult Discharge Plan - Plan Referrals: Ray Garcia MD [Primary Care Provider] -
[2016-10-25] MEDS: *HR* Codeine Sulfate 30 MG TABLET PO PRN (14:29)
[2016-10-25] MEDS: Levofloxacin 500 MG/100 ML 500 MG/100 ML BAG IVPB SCH (15:51)
[2016-10-25] MEDS: MethylPREDNISolone 40 MG/ML VIAL IVP SCH (16:43)
[2016-10-26] MEDS: *HR* Codeine Sulfate 30 MG TABLET PO PRN ×3 (00:03→23:18)
[2016-10-26] MEDS: Ipratropium/Albuterol Neb 3 ML IH SCH ×6 (04:06→23:06)
[2016-10-26 05:15] LABS: Basophils % 0.2 %; Hematocrit 35.8 % (35.3-44.9); Hemoglobin 11.1 g/dL (11.5-15.4); Lymphocytes # 1.4 K/mcL (0.6-4.6); Lymphocytes % 12.3 %; Mean Corpuscular Hemoglobin 26.5 pg (28.0-33.3); Mean Corpuscular Volume 85.4 fL (83.0-100.0); Mean Platelet Volume 9.6 fL (9.4-12.4); Monocytes # 0.7 K/mcL (0.0-1.3); Monocytes % 6.1 %; Neutrophils # 9.1 K/mcL (1.6-8.9); Platelet Count 258 K/mcL (140-400); Red Blood Count 4.19 M/mcL (3.82-4.97); Red Cell Distribution Width 14.8 % (11.5-14.5); Segmented Neutrophils % 79.4 %
[2016-10-26 05:41] LABS: BUN/Creatinine Ratio 36 (6-26); Blood Urea Nitrogen 26 mg/dL (7-20); Calcium 8.8 mg/dL (8.6-10.8); Carbon Dioxide 28 mEq/L (19-29); Chloride 104 mEq/L (98-109); Glucose 141 mg/dL (70-99); Osmolality,Calculated 301 (280-300); Phosphorous 3.1 mg/dL (2.3-4.7); Potassium 4.2 mEq/L (3.5-4.5); Sodium 142 mEq/L (136-145); eGFR For African Americans > 60 (> 60); eGFR For Non-African Americans > 60 (> 60)
[2016-10-26] MEDS: *HR* Enoxaparin 40 MG/0.4 ML SYRINGE SQ SCH (06:52)
[2016-10-26] MEDS: MethylPREDNISolone 40 MG/ML VIAL IVP SCH ×2 (06:53→18:28)
[2016-10-26] MEDS: Insulin LISPRO 300 UNITS/3 ML VIAL SQ SCH ×3 (07:40→16:46)
[2016-10-26] MEDS: Budesonide/Formoterol 160/4.5 MDI IH SCH ×2 (07:54→19:45)
[2016-10-26] MEDS: (Roflumilast [Daliresp] 500 MCG) PO SCH (08:27)
[2016-10-26] MEDS: Aspirin Enteric Coated 81 MG Tablet PO SCH (08:28)
[2016-10-26] MEDS: Benzonatate 100 MG CAPSULE PO SCH ×3 (08:29→21:29)
[2016-10-26] MEDS: Levofloxacin 500 MG/100 ML 500 MG/100 ML BAG IVPB SCH (08:29)
[2016-10-26] MEDS: Furosemide 20 MG TABLET PO SCH (08:31)
--- NOTE | 2016-10-26 14:31 | Internal Med Progress Note ---
Date of Encounter: 10/26/16 Time of Encounter: 14:28 - Assessment and plan (1) Acute exacerbation of chronic obstructive airways disease Current Visit: Yes Status: Acute Assessment and plan: continue systemic steroids and bronchodilator support Continue Solumedrol to 40mg IV q12h Continue O2 supplementation (pt reports of being on home oxygen) monitor O2 sat, goal O2 sat: 89-92% continue IV abx pt reports of being on home oxygen (2) Cough Current Visit: Yes Status: Acute Assessment and plan: Guaifenesin with codeine prn cough (3) CHF (congestive heart failure) Current Visit: No Status: Chronic Assessment and plan: Not in acute exacerbation continue home dose of lasix Qualifiers: Congestive heart failure type: diastolic Congestive heart failure chronicity: chronic Qualified Code(s): I50.32 - Chronic diastolic (congestive ) heart failure (4) Diabetes Current Visit: No Status: Chronic Assessment and plan: New onset DM HbA1C: 6.5 currently hyperglycemia likely secondary to steroid therapy will closely monitor fingerstick and blood glucose continue sliding scale insulin therapy elementary educator counseling requested. Qualifiers: Diabetes mellitus type: type 2 Diabetes mellitus complication status: without complication Diabetes mellitus group home insulin use: without predatory animal exterminator use Qualified Code(s): E11.9 - Type 2 diabetes mellitus without complications (5) Essential hypertension Current Visit: No Status: Chronic Assessment and plan: BP within acceptable range continue home medications (6) Hyperlipidemia Current Visit: No Status: Chronic Assessment and plan: continue home medications Qualifiers: Hyperlipidemia type: mixed hyperlipidemia Qualified Code(s): E78.2 - Mixed hyperlipidemia (7) Former heavy tobacco smoker Current Visit: Yes Status: Chronic Assessment and plan: Hx of 4ppd x 35years. Quit in 94. (8) DVT prophylaxis Current Visit: No Status: Acute Assessment and plan: Heparin SQ (9) Obesity Current Visit: Yes Status: Chronic Qualifiers: Obesity type: unspecified obesity type Obesity severity: non-morbid Qualified Code(s): E66.9 - Obesity, unspecified - Subjective Interval history: Patient is a 61y/o female who is admitted for acute respiratory distress secondary to COPD exacerbation. Patient seen and examined at bedside, reports feeling better compared to the previous day. States the cough syrup is helping with her cough. Improvement in respiratory status noted. - Constitutional Vitals: Temp Pulse Resp BP Pulse Ox 98.0 F 75 18 121/69 98 10/26/16 10:46 10/26/16 10:46 10/26/16 11:20 10/26/16 10:46 10/26/16 11:20 General appearance: Present: A&O X 3, pleasant, no acute distress, obese, answers questions appropriately - Head Head exam: Present: atraumatic, normocephalic - Respiratory Respiratory exam: Present: decreased breath sounds. Absent: respiratory distress, wheezes - Cardiovascular Cardiovascular exam: Present: RRR, +S1, +S2. Absent: diastolic murmur, gallop, rubs, systolic murmur - GI/Abdominal GI/Abdominal exam: Present: normal bowel sounds, soft, no peritoneal signs. Absent: distended, tenderness - Extremities Exam Extremities exam: Present: warm, radial pulses palpable and symetrical. Absent : calf tenderness, cyanotic, pedal edema - Neurological Exam Neurological exam: Present: alert, oriented X3 - Psychiatric Psychiatric exam: Present: normal affect, normal mood Internal Medicine: Result - Labs CBC & Chem 7: 10/26/16 04:23 10/26/16 04:23 Labs: Short CBC 10/26/16 Range/Units 04:23 WBC 11.5 H (4.3-11.1) K/mcL Hgb 11.1 L (11.5-15.4) g/dL Hct 35.8 (35.3-44.9) % Plt Count 258 (140-400) K/mcL Neutrophils # 9.1 H (1.6-8.9) K/mcL BMP 10/26/16 04:23 Sodium 142 Potassium 4.2 Chloride 104 Carbon Dioxide 28 BUN 26 H Creatinine 0.72 Glucose 141 H Calcium 8.8 - VTE Documentation of Mechanical Device: Graduated compression elastic hosiery Consult Discharge Plan - Plan Referrals: Ray Garcia MD [Primary Care Provider] -
[2016-10-27] MEDS: Ipratropium/Albuterol Neb 3 ML IH SCH ×4 (04:52→15:29)
[2016-10-27] MEDS: MethylPREDNISolone 40 MG/ML VIAL IVP SCH (05:49)
[2016-10-27] MEDS: *HR* Enoxaparin 40 MG/0.4 ML SYRINGE SQ SCH (05:50)
[2016-10-27] MEDS: Insulin LISPRO 300 UNITS/3 ML VIAL SQ SCH ×2 (07:27→12:02)
[2016-10-27] MEDS: Aspirin Enteric Coated 81 MG Tablet PO SCH (08:18)
[2016-10-27] MEDS: Benzonatate 100 MG CAPSULE PO SCH (08:18)
[2016-10-27] MEDS: Furosemide 20 MG TABLET PO SCH (08:19)
[2016-10-27] MEDS: (Roflumilast [Daliresp] 500 MCG) PO SCH (08:19)
[2016-10-27] MEDS: Budesonide/Formoterol 160/4.5 MDI IH SCH (08:35)
[2016-10-27 08:52] LABS: Basophils % 0.2 %; Hematocrit 41.4 % (35.3-44.9); Lymphocytes % 10.1 %; Mean Corpuscular HGB Conc 30.9 g/dL (31.6-35.5); Mean Corpuscular Hemoglobin 26.6 pg (28.0-33.3); Mean Corpuscular Volume 85.9 fL (83.0-100.0); Mean Platelet Volume 9.2 fL (9.4-12.4); Monocytes # 0.3 K/mcL (0.0-1.3); Monocytes % 2.9 %; Neutrophils # 8.6 K/mcL (1.6-8.9); Platelet Count 275 K/mcL (140-400); Red Blood Count 4.82 M/mcL (3.82-4.97); Red Cell Distribution Width 14.7 % (11.5-14.5); Segmented Neutrophils % 84.8 %
[2016-10-27 08:58] LABS: Hemoglobin 12.8 g/dL (11.5-15.4)
[2016-10-27] MEDS ORDERED: Levofloxacin 250 MG/50 ML 250 MG/50 ML BAG IVPB SCH (09:00)
[2016-10-27 09:07] LABS: BUN/Creatinine Ratio 36 (6-26); Blood Urea Nitrogen 29 mg/dL (7-20); Calcium 9.7 mg/dL (8.6-10.8); Carbon Dioxide 33 mEq/L (19-29); Chloride 97 mEq/L (98-109); Glucose 168 mg/dL (70-99); Magnesium 2.6 mg/dL (1.6-2.6); Osmolality,Calculated 300 (280-300); Potassium 4.7 mEq/L (3.5-4.5); Sodium 140 mEq/L (136-145); eGFR For African Americans > 60 (> 60); eGFR For Non-African Americans > 60 (> 60)
[2016-10-27 11:17] VITALS: BP 143/76
[2016-10-27] MEDS: Ibuprofen 400 MG TABLET PO PRN (12:05)
[2016-10-27] MEDS: *HR* Codeine Sulfate 30 MG TABLET PO PRN (12:06)
--- NOTE | 2016-10-27 13:40 | Discharge Summary ---
Date of Encounter: 10/27/16 Time of Encounter: 13:37 - Discharge Diagnosis (1) Acute exacerbation of chronic obstructive airways disease Priority: Primary Status: Acute (2) Cough Priority: Secondary Status: Acute (3) CHF (congestive heart failure) Priority: Secondary Status: Chronic Qualifiers: Congestive heart failure type: diastolic Congestive heart failure chronicity: chronic Qualified Code(s): I50.32 - Chronic diastolic (congestive ) heart failure (4) Diabetes Priority: Secondary Status: Chronic Qualifiers: Diabetes mellitus type: type 2 Diabetes mellitus complication status: without complication Diabetes mellitus skilled nursing insulin use: without terminal press operator use Qualified Code(s): E11.9 - Type 2 diabetes mellitus without complications (5) Essential hypertension Priority: Secondary Status: Chronic (6) Hyperlipidemia Priority: Secondary Status: Chronic Qualifiers: Hyperlipidemia type: mixed hyperlipidemia Qualified Code(s): E78.2 - Mixed hyperlipidemia (7) Former heavy tobacco smoker Priority: Secondary Status: Chronic (8) DVT prophylaxis Priority: Secondary Status: Acute (9) Obesity Priority: Secondary Status: Chronic Qualifiers: Obesity type: unspecified obesity type Obesity severity: non-morbid Qualified Code(s): E66.9 - Obesity, unspecified - Discharge Medications Prescriptions: GuaiFENesin/Codeine [ROBITUSSIN w/CODEINE] 5 ml PO Q6HR PRN #100 ml PRN Reason: Cough Metformin [Glucophage] 500 mg PO BIDWM #60 tablet PredniSONE 40 mg PO DAILY #7 tablet Home Medications: Albuterol Neb [Proventil Neb] 2.5 mg IH QID PRN 06/22/15 [History] Budesonide/Formoterol 160/4.5 [Symbicort] 2 puff IH BID 06/22/15 [History] Roflumilast [Daliresp] 500 mcg PO QAM 06/22/15 [History] Albuterol Sulfate [Proair Hfa] 2 puff IH Q4H PRN 07/14/16 [History] Atorvastatin Calcium [Lipitor] 80 mg PO QAM 07/14/16 [History] Sertraline [Zoloft] 50 mg PO DAILY 07/15/16 [History] Metoprolol [Lopressor] 12.5 mg PO BIDWM 30 Days 07/17/16 [Rx] Aspirin Enteric Coated [Aspirin EC] 81 mg PO DAILY 10/22/16 [History] Cyanocobalamin (Vitamin B-12) [Vitamin B-12] 500 mcg PO DAILY 10/22/16 [History] Cyclosporine [Restasis] 1 each OP BID 10/22/16 [History] Ergocalciferol (VITAMIN D2) [Vitamin D] 800 unit PO DAILY 10/22/16 [History] Ferrous Sulfate 325 mg PO DAILY 10/22/16 [History] Furosemide [Lasix] 20 mg PO DAILY 10/22/16 [History] Guaifenesin [Mucinex] 600 mg PO Q12H PRN 10/22/16 [History] Olopatadine HCl [Pataday] 1 drop BOTH EYES QAM 10/22/16 [History] Omeprazole [PriLOSEC] 20 mg PO DAILY 10/22/16 [History] Potassium Chloride [K-Tab ER] 20 meq PO DAILY 10/22/16 [History] Travoprost [Travatan Z] 1 drop OP QPM 10/22/16 [History] GuaiFENesin/Codeine [ROBITUSSIN w/CODEINE] 5 ml PO Q6HR PRN #100 ml 10/27/16 [Rx ] Metformin [Glucophage] 500 mg PO BIDWM #60 tablet 10/27/16 [Rx] PredniSONE 40 mg PO DAILY #7 tablet 10/27/16 [Rx] Allergies/Adverse Reactions: Allergies acetaminophen [From Vicodin] Adverse Reaction (Verified 07/15/16 13:34) Headache hydrocodone [From Vicodin] Adverse Reaction (Verified 07/15/16 13:34) Headache Date of admission: 10/23/16 13:19 Primary care physician: Ray Garcia Consults: 10/25/16 14:08 Consult to Infrastructure Analyst [CONS] Routine Comment: Discharging clinician: Larisa Huynh Anticipated date of discharge: 10/27/16 - Patient Status Disposition: Home, Self-Care Condition: Good Functional capacity at discharge: independent ambulation Overall status at discharge: patient is back to baseline - Discharge Instructions Instructions: Meal Planning with Diabetes Exchanges (GEN), Diabetes Mellitus Type 2 in Adults (DC) Follow Up With: Ray Garcia MD [Primary Care Provider] - Additional Instructions: Please follow up with your primary care physician within five days after your discharge from the hospital. Please continue Prednisone as prescribed. Please follow up with your machinery dismantler within one week after your discharge from the hospital. During this hospitalization you were found to have HbA1C of 6.5 which gives you the diagnosis of Diabetes Mellitus. You will be discharged with Metformin 500mg twice a day. Please inform your primary care physician of this new diagnosis and change. Please continue all your home medications as prescribed by your primary care physician. - Diet and Activity Activity: increase activity as tolerated, wear oxygen at all times Diet: diabetic diet, low salt diet Hospital course: Ms. Leon is a 61 year old female with PMH of hypertension, hyperlipidemia, borderline diabetes, severe COPD on home oxygen who was admitted for COPD exacerbation. She was started on IV steroids, antibiotics and bronchodilator support. Patient was also noted to be hyperglycemic and was found to have HbA1C of 6.5. She was started on insulin therapy while in house. At this time she is hemodynamically stable and will be discharged to home with follow up with her machinery dismantler and PCP. She will be started on Metformin and further antihyperglycemics will be added by her PCP. She is to continue oral prednisone after discharge. - Time Spent with Patient Total time spent providing and/or coordinating discharge services: Less than 30 minutes - Constitutional Vitals: Temp Pulse Resp BP Pulse Ox 97.3 F L 97 18 143/76 96 10/27/16 11:15 10/27/16 11:15 10/27/16 11:47 10/27/16 11:47 10/27/16 11:47 General appearance: Present: A&O X 3, pleasant, no acute distress, obese, answers questions appropriately - Head Head exam: Present: atraumatic, normocephalic - Eye Eye exam: Present: normal appearance, conjuntiva pink, sclera anicteric - Respiratory Respiratory exam: Present: decreased breath sounds. Absent: respiratory distress, wheezes - Cardiovascular Cardiovascular exam: Present: RRR, +S1, +S2. Absent: diastolic murmur, gallop, rubs, systolic murmur - GI/Abdominal GI/Abdominal exam: Present: normal bowel sounds, soft, no peritoneal signs. Absent: distended, tenderness - Extremities Exam Extremities exam: Present: warm, radial pulses palpable and symetrical. Absent : calf tenderness, cyanotic, pedal edema - Neurological Exam Neurological exam: Present: alert, oriented X3, no focal deficits - Psychiatric Psychiatric exam: Present: normal affect, normal mood - VTE Documentation of Mechanical Device: Graduated compression elastic hosiery
== END 2016-10-27 15:53 | disposition home or self-care (01) | DRG 191 ==
LOC: 3BNU 11:20 → EMEROO 11:20 → 3BNU 15:08 → SUATTDRO 10-23 13:19
PROVIDERS: ADMIT Internal Medicine; ATTEND Internal Medicine

== ENCOUNTER 2017-04-01 06:48 | Inpatient (IN) ==
[2017-04-01] MEDS ORDERED: methylPREDNISolone 125 MG/2 ML VIAL IVP ONE (06:50)
[2017-04-01] MEDS ORDERED: Ipratropium/Albuterol Neb 3 ML IH ONE ×2 (06:50→08:02)
--- NOTE | 2017-04-01 06:55 | Emergency Department Note ---
START Narrative - START START: 61 year old female presents to the ED via EMS for complaints of ROBER and is 2lnc dependent prn. Justin states that her oxygen needs have increased and that she has had increased productive cough with subjective fevers. EMS states her initial pulse ox with 2LNC was 90% and she sounded tight in the chest, she recieved one treatment per EMS crew. PAtinet states that she has COPD. Patient has audible wheezingin throughout bilateral lung lawson. WE will place justin on director of cardiac cath lab and start breathing treatments and do chest pain workup pathway. Justin will be signed out to day team (Christi). Plan is to followup throguh labs and monitor respiratory status and disposition based on patients ability to tolerate exertion without becoming hypoxic.
--- NOTE | 2017-04-01 07:19 | Emergency Department Note ---
Disposition Clinical Impression: COPD exacerbation Disposition: Admitted As Inpatient Condition: Fair Referrals: Ray Garcia MD [Primary Care Provider] - Forms: ED Satisfaction Letter Time of Disposition: 07:53 SOB HPI - General Chief Complaint: ED Shortness of Breath/Dyspnea Stated Complaint: zohreh Time Seen by Provider: 04/01/17 06:50 Source: patient Mode of arrival: EMS Limitations: no limitations Nursing Notes Reviewed: Yes Vital Signs Reviewed: Yes - History of Present Illness Pt Subjective Complaint: shortness of breath, cough Onset (ago): day(s) Severity: moderate Consistency/Duration: intermittent Improves with: oxygen, bronchodilators Worsens with: exertion, coughing Known history of: COPD Associated symptoms: Reports: other (Headache) Treatment prior to arrival: oxygen, bronchodilator Cough present: Yes Cough Frequency: Intermittent - Related Data Home oxygen amount: 2 liters Home Medications Medication Instructions Recorded Confirmed Albuterol Neb [Proventil Neb] 2.5 mg IH QID PRN 06/22/15 10/22/16 Budesonide/Formoterol 160/4.5 2 puff IH BID 06/22/15 10/22/16 [Symbicort] Roflumilast [Daliresp] 500 mcg PO QAM 06/22/15 10/22/16 Albuterol Sulfate [Proair Hfa] 2 puff IH Q4H PRN 07/14/16 10/22/16 Atorvastatin Calcium [Lipitor] 80 mg PO QAM 07/14/16 10/22/16 Sertraline [Zoloft] 50 mg PO DAILY 07/15/16 10/22/16 Aspirin Enteric Coated [Aspirin EC] 81 mg PO DAILY 10/22/16 10/22/16 Cyanocobalamin (Vitamin B-12) 500 mcg PO DAILY 10/22/16 10/22/16 [Vitamin B-12] Cyclosporine [Restasis] 1 each OP BID 10/22/16 10/22/16 Ergocalciferol (VITAMIN D2) 800 unit PO DAILY 10/22/16 10/22/16 [Vitamin D] Ferrous Sulfate 325 mg PO DAILY 10/22/16 10/22/16 Furosemide [Lasix] 20 mg PO DAILY 10/22/16 10/22/16 Guaifenesin [Mucinex] 600 mg PO Q12H PRN 10/22/16 10/22/16 Olopatadine HCl [Pataday] 1 drop BOTH EYES QAM 10/22/16 10/22/16 Omeprazole [PriLOSEC] 20 mg PO DAILY 10/22/16 10/22/16 Potassium Chloride [K-Tab ER] 20 meq PO DAILY 10/22/16 10/22/16 Travoprost [Travatan Z] 1 drop OP QPM 10/22/16 10/22/16 Previous Rx's Medication Instructions Recorded Metoprolol [Lopressor] 12.5 mg PO BIDWM 30 Days 07/17/16 GuaiFENesin/Codeine [ROBITUSSIN 5 ml PO Q6HR PRN #100 ml 10/27/16 w/CODEINE] metFORMIN [Glucophage] 500 mg PO BIDWM #60 tablet 10/27/16 predniSONE [PredniSONE] 40 mg PO DAILY #7 tablet 10/27/16 Azithromycin [Azithromycin 6-Tab 250 mg PO PER PKG DI #6 tab 03/10/17 Pack] PredniSONE [Deltasone] 40 mg PO DAILY 4 Days 03/10/17 Allergies Allergy/AdvReac Type Severity Reaction Status Date / Time acetaminophen [From Vicodin] AdvReac Headache Verified 07/15/16 13:34 hydrocodone [From Vicodin] AdvReac Headache Verified 07/15/16 13:34 All systems ED: reviewed and negative except as stated. Constitutional: Reports: as per HPI Eyes: Reports: as per HPI ENT ED: Reports: as per HPI Cardiovascular: Reports: dyspnea on exertion Respiratory: Reports: cough, dyspnea, wheezes Gastrointestinal: Reports: as per HPI Genitourinary: Reports: as per HPI Musculoskeletal: Reports: as per HPI Integumentary: Reports: as per HPI Neurological: Reports: headache Psychiatric: Reports: as per HPI Endocrine: Reports: as per HPI Hematological/Lymphatic: Reports: as per HPI Allergic/Immunologic: Reports: as per HPI Past Medical History - Past Medical History Source: patient Medical history: Reports: COPD, diabetes, GERD, glaucoma, hyperlipidemia, hypertension, other Surgical history: Reports: cataract, other (ex lap 1979 - benign uterine tumor in ) 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: Reports: anxiety, depression SAGGER SOAK history: Reports: other - Social History Smoking Status: Former smoker Smokeless Tobacco Status: No Alcohol use: Reports: none Drug use: Reports: none Physical Exam Tachypneic - General Limitations: no limitations General appearance: alert, in no apparent distress - Head Head exam: atraumatic - Eye Eye exam: Present: normal appearance - ENT ENT exam: normal exam - Neck Neck exam: Present: normal inspection - Chest Chest inspection: Present: normal inspection, symmetric chest wall rise - Respiratory Respiratory exam: Present: wheezes, accessory muscle use, prolonged expiratory phase - Cardiovascular Cardiovascular exam: Present: tachycardia, normal heart sounds - Rectal Exam Rectal exam: Present: deferred - Extremities Exam Extremities exam: Present: normal inspection. Absent: pedal edema - Neurological Exam Neurological exam: Present: alert, oriented X3, CN II-XII intact - Psychiatric Psychiatric exam: Present: normal affect, normal mood - Skin Skin exam: Present: warm, dry, intact Course Course Narrative: Patient presents to the emergency department with cough, wheezing, dyspnea. She has a known history of COPD that is oxygen dependent. She denies chest pain. EKG reviewed by me. Nebs ordered. Steroids ordered. I will continually assess - Reevaluation(s) Reevaluation #1: Patient reassessed. She states she is not back to baseline. Wheezing improved but persisted. Plan at this time is to admit the patient Reevaluation #2: Dr. Mcguire accepts admission Vital Signs Temperature 97.8 F 04/01/17 06:50 Pulse Rate 114 04/01/17 06:50 Respiratory Rate 22 04/01/17 06:50 Blood Pressure 155/83 04/01/17 06:50 O2 Sat by Pulse Oximetry 97 04/01/17 06:50 Temperature 97.8 F 04/01/17 06:50 Pulse Rate 109 04/01/17 07:30 Respiratory Rate 22 04/01/17 07:30 Blood Pressure 155/83 04/01/17 06:50 O2 Sat by Pulse Oximetry 98 04/01/17 07:30 Oxygen Delivery Oxygen Delivery Aerosol Mask Shortness of Breath/Dyspnea - Lab Data Lab results reviewed: Yes I reviewed the patient's lab results. Result diagrams: 04/01/17 07:35 04/01/17 07:35 Lab Results 04/01/17 04/01/17 04/01/17 Range/Units 07:35 07:35 07:35 WBC 7.0 (4.3-11.1) K/mcL RBC 4.60 (3.82-4.97) M/mcL Hgb 12.2 (11.5-15.4) g/dL Hct 39.3 (35.3-44.9) % MCV 85.4 (83.0-100.0) fL MCH 26.5 L (28.0-33.3) pg MCHC 31.0 L (31.6-35.5) g/dL RDW 14.9 H (11.5-14.5) % Plt Count 225 (140-400) K/mcL MPV 8.9 L (9.4-12.4) fL Immature Gran % 0.3 (0-4) % Seg Neutrophils % 52.8 % Lymphocytes % 33.2 % Monocytes % 6.5 % Eosinophils % 6.6 % Basophils % 0.6 % Neutrophils # 3.7 (1.6-8.9) K/mcL Lymphocytes # 2.3 (0.6-4.6) K/mcL Monocytes # 0.5 (0.0-1.3) K/mcL Eosinophils # 0.5 (0.0-0.6) K/mcL Basophils # 0.0 (0.0-0.2) K/mcL PT 10.0 (9.4-12.1) Seconds INR 0.9 APTT 27.3 (26.0-36.0) Seconds Sodium (136-145) mEq/L Potassium (3.5-4.5) mEq/L Chloride (98-109) mEq/L Carbon Dioxide (19-29) mEq/L BUN (7-20) mg/dL Creatinine (0.57-1.11) mg/dL Est GFR ( Amer) (> 60) Est GFR (Non-Af Amer) (> 60) BUN/Creatinine Ratio (6-26) Glucose (70-99) mg/dL Calculated Osmolality (280-300) Calcium (8.6-10.8) mg/dL Troponin I (0-0.03) ng/mL B-Natriuretic Peptide < 10 (0-100) pg/mL 04/01/17 04/01/17 Range/Units 07:35 07:35 WBC (4.3-11.1) K/mcL RBC (3.82-4.97) M/mcL Hgb (11.5-15.4) g/dL Hct (35.3-44.9) % MCV (83.0-100.0) fL MCH (28.0-33.3) pg MCHC (31.6-35.5) g/dL RDW (11.5-14.5) % Plt Count (140-400) K/mcL MPV (9.4-12.4) fL Immature Gran % (0-4) % Seg Neutrophils % % Lymphocytes % % Monocytes % % Eosinophils % % Basophils % % Neutrophils # (1.6-8.9) K/mcL Lymphocytes # (0.6-4.6) K/mcL Monocytes # (0.0-1.3) K/mcL Eosinophils # (0.0-0.6) K/mcL Basophils # (0.0-0.2) K/mcL PT (9.4-12.1) Seconds INR APTT (26.0-36.0) Seconds Sodium 140 (136-145) mEq/L Potassium 3.7 (3.5-4.5) mEq/L Chloride 107 (98-109) mEq/L Carbon Dioxide 25 (19-29) mEq/L BUN 20 (7-20) mg/dL Creatinine 0.74 (0.57-1.11) mg/dL Est GFR ( Amer) > 60 (> 60) Est GFR (Non-Af Amer) > 60 (> 60) BUN/Creatinine Ratio 27 H (6-26) Glucose 153 H (70-99) mg/dL Calculated Osmolality 296 (280-300) Calcium 10.2 (8.6-10.8) mg/dL Troponin I 0.02 (0-0.03) ng/mL B-Natriuretic Peptide (0-100) pg/mL - Radiology Data Radiology results reviewed: Yes I reviewed the patient's radiology results. - EKG Data EKG attestation: Yes I reviewed and interpreted this EKG. EKG results narrative: Sinus tachycardia [address] 133 QRS 87 QT/QTC 321/387. No acute ST segment elevation. Study compared to previous dated 03/10/70
[2017-04-01 07:51] LABS: Basophils % 0.6 %; Eosinophils # 0.5 K/mcL (0.0-0.6); Eosinophils % 6.6 %; Hematocrit 39.3 % (35.3-44.9); Hemoglobin 12.2 g/dL (11.5-15.4); Immature Granulocytes % 0.3 % (0-4); Lymphocytes # 2.3 K/mcL (0.6-4.6); Lymphocytes % 33.2 %; Mean Corpuscular Hemoglobin 26.5 pg (28.0-33.3); Mean Corpuscular Volume 85.4 fL (83.0-100.0); Mean Platelet Volume 8.9 fL (9.4-12.4); Monocytes # 0.5 K/mcL (0.0-1.3); Monocytes % 6.5 %; Neutrophils # 3.7 K/mcL (1.6-8.9); Platelet Count 225 K/mcL (140-400); Red Cell Distribution Width 14.9 % (11.5-14.5); Segmented Neutrophils % 52.8 %
[2017-04-01 08:03] LABS: BUN/Creatinine Ratio 27 (6-26); Blood Urea Nitrogen 20 mg/dL (7-20); Calcium 10.2 mg/dL (8.6-10.8); Carbon Dioxide 25 mEq/L (19-29); Chloride 107 mEq/L (98-109); Glucose 153 mg/dL (70-99); Osmolality,Calculated 296 (280-300); Potassium 3.7 mEq/L (3.5-4.5); Sodium 140 mEq/L (136-145); eGFR For African Americans > 60 (> 60); eGFR For Non-African Americans > 60 (> 60)
[2017-04-01 08:04] LABS: INR 0.9
[2017-04-01 08:07] LABS: Activated Partial Thrombo Time 27.3 Seconds (26.0-36.0)
[2017-04-01 08:19] LABS: Bilirubin,Urine Negative (Negative); Blood,Urine Small (Negative); Clarity,Urine Clear (Clear); Color,Urine Yellow (Yellow); Glucose,Urine (UA) Normal (Normal); Ketones,Urine Negative (Negative); Leukocyte Esterase,Urine Moderate (Negative); Nitrite,Urine Negative (Negative); PH,Urine 5.5 pH Units (5.0-8.0); Protein,Urine Negative (Neg-Trace); Specific Gravity,Urine 1.022 (1.010-1.025); Urobilinogen,Urine Normal (Normal)
[2017-04-01 08:24] LABS: Bacteria,Urine None Seen per hpf (None-Few); Hyaline Casts,Urine None Seen per lpf (None-Few); Squamous Epithelial Cell,Urine Moderate per lpf (None-Few); WBC,Urine 15-30 per hpf (0-3)
[2017-04-01] MEDS ORDERED: MOM Conc 10 ML UD.LIQ PO PRN (08:55)
[2017-04-01] MEDS ORDERED: Mag Hydrox/Al Hydrox/Simeth 30 ML UDC PO PRN (08:55)
[2017-04-01] MEDS ORDERED: Naloxone 0.4 MG/ML INJ IVP PRN (08:55)
[2017-04-01] MEDS ORDERED: Ondansetron 4 MG/2 ML VIAL IVP PRN (08:55)
[2017-04-01] MEDS ORDERED: Albuterol 2.5 MG/3 ML NEBULIZER IH PRN (09:06)
[2017-04-01] MEDS ORDERED: D5% in Water 1,000 ML IVC PRN (09:16)
[2017-04-01] MEDS ORDERED: *HR* Dextrose 50 % in Water (Syg) 50 ML SYRINGE IVP PRN (09:16)
[2017-04-01] MEDS ORDERED: Dextrose Gel 15 GM PO PRN ×2 (09:16)
--- NOTE | 2017-04-01 09:18 | Electrocardiograph Report ---
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
--- NOTE | 2017-04-01 09:30 | Internal Med History&Physical ---
Date of Encounter: 04/01/17 Time of Encounter: 08:45 Assessment and Plan (1) Respiratory failure Current visit: Yes Status: Acute Pt with acute on chronic hypoxic resp failure due to acute exac COPD. Place in observation Titrate oxygen - patient would like to get portable concentrator IV steroids, abx Aerosols Mucolytics At this point she has had some improvement with treatment in the ED. Qualifiers: Chronicity: acute on chronic Respiratory failure complication: hypoxia Qualified Code(s): J96.21 - Acute and chronic respiratory failure with hypoxia (2) Diabetes Current visit: Yes Status: Chronic Blood sugar slightly elevated on admit. Hold Metformin Sliding scale coverage with accuchecks Qualifiers: Diabetes mellitus type: type 2 Diabetes mellitus complication status: with hyperglycemia Diabetes mellitus long-term insulin use: without long-term use Qualified Code(s): E11.65 - Type 2 diabetes mellitus with hyperglycemia (3) Essential hypertension Current visit: Yes Status: Chronic Continue home medications Appears to be controlled at this time. (4) GERD (gastroesophageal reflux disease) Current visit: Yes Status: Chronic Continue home Prilosec Qualifiers: Esophagitis presence: without esophagitis Qualified Code(s): K21.9 - Gastro -esophageal reflux disease without esophagitis (5) Hyperlipidemia Current visit: Yes Status: Chronic Continue home statin Qualifiers: Hyperlipidemia type: mixed hyperlipidemia Qualified Code(s): E78.2 - Mixed hyperlipidemia (6) Depression Current visit: Yes Status: Chronic Supportive care. Qualifiers: Depression Type: major depressive disorder Active/Remission status: in remission of unspecified degree Qualified Code(s): F33.40 - Major depressive disorder, recurrent, in remission, unspecified Internal Medicine - H&P: HPI Chief complaint: Short of breath Admitted From: Emergency Dept Plans for Post Hospital Care: Home History of present illness: Ms. Leon is a 61 year old female with long standing history of COPD presented to ED early this AM with dyspnea. Pt has had multiple ED visits as well as hospitalizations for COPD exacerbation. She stated she has not been feeling well for about the last week. This AM she awoke and was feeling worse so came to ED. Denies CP. No documented fever but felt warm. Has headache as well. No N/V/C/D. Cough is congested but cannot mobilize sputum. Noticed she is using her nebulizer more often over last week but did not really help much. Denies intubation. Denies chronic steroid use but currently on steroids from prior recent visit. In ED she has received multiple aerosols with minimal improvement and is to be placed in observation for further care. Ms. Leon also notes that she has noticed some increased swelling in her abdomen. No leg swelling. She has seen her [employer]URNIT[employer] HELPER and is to have surgery for cysts on her ovaries. Surgery has been cancelled once due to her breathing. It is now scheduled at [facility] on 04/17. She also has a portable oxygen tank and would like portable concentrator (uses [facility] oxygen). Past Med Surg Social Fam HX - Past Medical History Source: patient, old records reviewed Medical history: COPD, diabetes, GERD, glaucoma, hyperlipidemia, hypertension, other 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: anxiety, depression - Past Surgical History Surgical History: cataract, other (ex lap 1979 - benign uterine tumor in ) - Social History Smoking Status: Former smoker Smokeless Tobacco Status: No Alcohol use: none Drug use: none Current living situation: Home - Independent Activity Level: Independent ambulation - Family History Mother Adopted: No Living Status: Hx Family Cancer: Yes (pancreatic) Father Living Status: Hx Family Cardiac Disorders: Yes Hx Family Endocrine Disorder: Yes (diabetes) Internal Medicine - H&P: Meds Albuterol Neb [Proventil Neb] 2.5 mg IH QID PRN 06/22/15 [History] Budesonide/Formoterol 160/4.5 [Symbicort] 2 puff IH BID 06/22/15 [History] Roflumilast [Daliresp] 500 mcg PO QAM 06/22/15 [History] Albuterol Sulfate [Proair Hfa] 2 puff IH Q4H PRN 07/14/16 [History] Atorvastatin Calcium [Lipitor] 80 mg PO QAM 07/14/16 [History] Sertraline [Zoloft] 50 mg PO DAILY 07/15/16 [History] Metoprolol [Lopressor] 12.5 mg PO BIDWM 30 Days 07/17/16 [Rx] Aspirin Enteric Coated [Aspirin EC] 81 mg PO DAILY 10/22/16 [History] Cyanocobalamin (Vitamin B-12) [Vitamin B-12] 1,000 mcg PO DAILY 10/22/16 [ History] Cyclosporine [Restasis] 1 each OP BID 10/22/16 [History] Ferrous Sulfate 325 mg PO DAILY 10/22/16 [History] Furosemide [Lasix] 20 mg PO DAILY 10/22/16 [History] Guaifenesin [Mucinex] 600 mg PO Q12H PRN 10/22/16 [History] Omeprazole [PriLOSEC] 20 mg PO DAILY 10/22/16 [History] Potassium Chloride [K-Tab ER] 20 meq PO DAILY 10/22/16 [History] Travoprost [Travatan Z] 1 drop OP QPM 10/22/16 [History] metFORMIN [Glucophage] 500 mg PO BIDWM #60 tablet 10/27/16 [Rx] PredniSONE [Deltasone] 40 mg PO DAILY 4 Days 03/10/17 [Rx] Acetylcysteine [E-Wyydrw-k-Cysteine] 600 mg PO BID 04/01/17 [History] Cyclobenzaprine HCl 10 mg PO DAILY 04/01/17 [History] Ergocalciferol (VITAMIN D2) [Vitamin D2] 50,000 unit PO QWEEK 04/01/17 [History] Umeclidinium Holden [Incruse Ellipta] 1 puff IH DAILY 04/01/17 [History] Allergies acetaminophen [From Vicodin] Adverse Reaction (Verified 07/15/16 13:34) Headache hydrocodone [From Vicodin] Adverse Reaction (Verified 07/15/16 13:34) Headache methylprednisolone [From Solu-Medrol] Adverse Reaction (Verified 04/01/17 09:19) Itching All Systems PM: A 10-system review of systems was performed and is negative for pertinent findings except as documented above in the HPI. - Constitutional Constitutional: fever(s), malaise - EENT Eyes: dry eye Ears: as per HPI, no decreased hearing Nose, mouth and throat: dry mouth, no mouth lesions, no mouth pain - Cardiovascular Cardiovascular ROS IM: dyspnea, no chest pain, no orthopnea - Respiratory Respiratory: cough, dyspnea, dyspnea on exertion, chest congestion - Gastrointestinal Gastrointestinal: no abdominal pain, no cramping, no diarrhea, no nausea - Genitourinary Genitourinary: no dysuria, no hematuria, no urinary frequency, no urinary urgency - Musculoskeletal Musculoskeletal ROS IM: arthralgias, myalgias, no muscle cramps, no muscle weakness - Integumentary Integumentary IM: no erythema, no rash - Neurological Neurological ROS: no abnormal gait, no abnormal speech, no numbness, no weakness - Psychiatric Psychiatric: no anxiety, no confusion - Endocrine Endocrine IM: no excessive sweating, no flushing - Hematologic/Lymphatic Hematologic/Lymphatic: no easy bleeding, no lymphadenopathy - Allergic/Immunologic Allergic/Immunologic: no uticaria, no wheezing - Constitutional Vitals: Temp Pulse Resp BP Pulse Ox 97.8 F 109 22 114/72 96 04/01/17 06:50 04/01/17 07:30 04/01/17 08:56 04/01/17 08:56 04/01/17 08:15 General appearance: Present: mild distress, A&O X 3, pleasant, answers questions appropriately - Head Head exam: Present: normocephalic - Eye Eye exam: Present: EOMI, conjuntiva pink Pupils: Present: PERRL - ENT ENT exam: Present: mucous membranes dry - Neck Neck exam general surgery: Absent: lymphadenopathy, tenderness, thyromegaly - Respiratory Respiratory exam: Present: decreased breath sounds, prolonged expiratory phase, wheezes. Absent: rhonchi - Cardiovascular Cardiovascular exam: Present: tachycardia Additional comments: Regular and tachy. - GI/Abdominal GI/Abdominal exam: Present: distended, normal bowel sounds, soft. Absent: mass , tenderness - Extremities Exam Extremities exam: Present: warm. Absent: pedal edema, tenderness Additional comments: Good pulses - Back Exam Back exam: Present: full ROM Additional comments: Increased thoracic kyphosis - Neurological Exam Neurological exam: Present: alert, oriented X3, no focal deficits - Psychiatric Psychiatric exam: Present: normal affect, normal mood - Skin Skin exam: Present: dry, warm. Absent: excoriation, rash Internal Med - H&P Results - Labs CBC & Chem 7: 04/01/17 07:35 04/01/17 07:35 - Diagnostic Studies Chest x-ray Status: image reviewed by me Additional comments: No infiltrate
[2017-04-01] MEDS: methylPREDNISolone 125 MG/2 ML VIAL IVP SCH ×2 (11:56→16:58)
[2017-04-01] MEDS: Cyanocobalamin (B-12) 1,000 MCG TABLET PO SCH (11:57)
[2017-04-01] MEDS: Azithromycin 500 MG in D5% in Water 250 ML IVPB SCH (11:57)
[2017-04-01] MEDS: Budesonide/Formoterol 160/4.5 MDI IH SCH ×2 (11:57→19:56)
[2017-04-01] MEDS: Aspirin Enteric Coated 81 MG Tablet PO SCH (11:57)
[2017-04-01] MEDS: Furosemide 20 MG TABLET PO SCH (11:57)
[2017-04-01] MEDS: (Roflumilast [Daliresp] 500 MCG) PO SCH (12:11)
[2017-04-01] MEDS: (Travoprost [Travatan Z] 1 DROP) OP SCH ×2 (12:11→17:17)
[2017-04-01] MEDS: (Cyclosporine [Restasis] 1 EACH) OP SCH ×2 (12:11→20:46)
[2017-04-01] MEDS: Insulin LISPRO 300 UNITS/3 ML VIAL SQ SCH ×3 (12:15→20:53)
[2017-04-01] MEDS: *HR* Acetylcysteine 20% 600 MG/3 ML ORAL SYRINGE PO SCH ×2 (12:15→20:45)
[2017-04-02] MEDS: methylPREDNISolone 125 MG/2 ML VIAL IVP SCH ×3 (00:22→10:47)
[2017-04-02 04:05] LABS: Hematocrit 40.7 % (35.3-44.9); Hemoglobin 12.7 g/dL (11.5-15.4); Immature Platelets 4.2 % (1.1-6.1); Mean Corpuscular HGB Conc 31.2 g/dL (31.6-35.5); Mean Corpuscular Hemoglobin 27.3 pg (28.0-33.3); Mean Corpuscular Volume 87.5 fL (83.0-100.0); Mean Platelet Volume 10.1 fL (9.4-12.4); Red Blood Count 4.65 M/mcL (3.82-4.97); Red Cell Distribution Width 15.3 % (11.5-14.5)
[2017-04-02 04:27] LABS: BUN/Creatinine Ratio 27 (6-26); Blood Urea Nitrogen 22 mg/dL (7-20); Calcium 10.2 mg/dL (8.6-10.8); Carbon Dioxide 27 mEq/L (19-29); Chloride 103 mEq/L (98-109); Glucose 273 mg/dL (70-99); Magnesium 2.1 mg/dL (1.6-2.6); Osmolality,Calculated 303 (280-300); Potassium 4.4 mEq/L (3.5-4.5); Sodium 140 mEq/L (136-145); eGFR For African Americans > 60 (> 60); eGFR For Non-African Americans > 60 (> 60)
[2017-04-02] MEDS: *HR* Enoxaparin 40 MG/0.4 ML SYRINGE SQ SCH (05:21)
[2017-04-02] MEDS: Furosemide 20 MG TABLET PO SCH (07:52)
[2017-04-02] MEDS: Cyanocobalamin (B-12) 1,000 MCG TABLET PO SCH (07:52)
[2017-04-02] MEDS: Aspirin Enteric Coated 81 MG Tablet PO SCH (07:52)
[2017-04-02] MEDS: Insulin LISPRO 300 UNITS/3 ML VIAL SQ SCH ×4 (07:53→21:09)
[2017-04-02] MEDS: *HR* Acetylcysteine 20% 600 MG/3 ML ORAL SYRINGE PO SCH ×2 (07:53→21:07)
[2017-04-02] MEDS: Budesonide/Formoterol 160/4.5 MDI IH SCH ×2 (08:01→20:09)
[2017-04-02] MEDS: (Cyclosporine [Restasis] 1 EACH) OP SCH (08:04)
[2017-04-02] MEDS: (Roflumilast [Daliresp] 500 MCG) PO SCH (08:05)
--- NOTE | 2017-04-02 08:51 | Internal Med Progress Note ---
<BrooksBobby senior - Last Filed: 04/02/17 15:41> Date of Encounter: 04/02/17 Time of Encounter: 08:43 - Assessment and plan (1) Respiratory failure Current Visit: Yes Status: Acute Assessment and plan: likely secondary to COPD exacerbation. CXR showed no obvious signs of consolidaton or opacities. of note, patient was supposed to have surgery for ovarian cysts, but surgery held off due to her respiratory status. Plan: ceftriaxone and azithromycin day 2 scheduled duonebs with Albuterol PRN IV steroids oxygen as needed guanfenacin and robitussin DM PRN Qualifiers: Chronicity: acute on chronic Respiratory failure complication: hypoxia Qualified Code(s): J96.21 - Acute and chronic respiratory failure with hypoxia (2) Acute exacerbation of chronic obstructive airways disease Current Visit: No Status: Acute Assessment and plan: plan as above. (3) Diabetes Current Visit: Yes Status: Chronic Assessment and plan: hold metformin low dose sliding scale insulin. ACHS accuchecks. Qualifiers: Diabetes mellitus type: type 2 Diabetes mellitus complication status: with hyperglycemia Diabetes mellitus usp insulin use: without camera engineer use Qualified Code(s): E11.65 - Type 2 diabetes mellitus with hyperglycemia (4) Essential hypertension Current Visit: Yes Status: Chronic Assessment and plan: continue home meds (5) GERD (gastroesophageal reflux disease) Current Visit: Yes Status: Chronic Assessment and plan: continue home med omeprazole. Qualifiers: Esophagitis presence: without esophagitis Qualified Code(s): K21.9 - Gastro -esophageal reflux disease without esophagitis (6) Hyperlipidemia Current Visit: Yes Status: Chronic Assessment and plan: continue statin Qualifiers: Hyperlipidemia type: mixed hyperlipidemia Qualified Code(s): E78.2 - Mixed hyperlipidemia (7) Depression Current Visit: Yes Status: Chronic Assessment and plan: continue home meds Qualifiers: Depression Type: major depressive disorder Major depression recurrence: recurrent Active/Remission status: in remission of unspecified degree Qualified Code(s): F33.40 - Major depressive disorder, recurrent, in remission, unspecified (8) DVT prophylaxis Current Visit: No Status: Acute Assessment and plan: Lovenox SQ - Subjective Interval history: 68 year old female evaluated at bedside. patient admits to nausea but no vomiting or diarrhea, fever, or chills. patient seems to be in mild distress from excessive coughing. she admits to mild headache and denies any further complaints today. - Constitutional Vitals: Temp Pulse Resp BP Pulse Ox 98.3 F 83 18 122/77 95 04/02/17 07:21 04/02/17 07:21 04/02/17 08:02 04/02/17 07:21 04/02/17 08:02 General appearance: Present: mild distress, A&O X 3, pleasant, answers questions appropriately - Head Head exam: Present: atraumatic, normocephalic - Neck Neck exam general surgery: Present: supple, trachea midline - Respiratory Additional comments: diffuse wheezing present with rales. - Cardiovascular Cardiovascular exam: Present: RRR, +S1, +S2 - GI/Abdominal GI/Abdominal exam: Present: firm, normal bowel sounds, soft. Absent: tenderness - Extremities Exam Extremities exam: Absent: cyanotic, pedal edema - Neurological Exam Neurological exam: Present: alert, oriented X3, no focal deficits - Skin Skin exam: Present: intact Internal Medicine: Result - Labs CBC & Chem 7: 04/02/17 03:14 04/02/17 03:14 Labs: Short CBC 04/02/17 Range/Units 03:14 WBC 12.3 H D (4.3-11.1) K/mcL Hgb 12.7 (11.5-15.4) g/dL Hct 40.7 (35.3-44.9) % Plt Count 231 (140-400) K/mcL BMP 04/02/17 03:14 Sodium 140 Potassium 4.4 Chloride 103 Carbon Dioxide 27 BUN 22 H Creatinine 0.83 Glucose 273 H Calcium 10.2 - ABG Interpretation ABG results: PT/INR, D-dimer PT 10.0 Seconds (9.4-12.1) 04/01/17 07:35 Consult Discharge Plan - Plan Referrals: Ray Garcia MD [Primary Care Provider] - <Zackary Wolff - Last Filed: 04/02/17 17:41> Date of Encounter: 04/02/17 - Constitutional Vitals: Temp Pulse Resp BP Pulse Ox 97.7 F 122 18 110/69 93 04/02/17 16:03 04/02/17 16:03 04/02/17 16:03 04/02/17 16:03 08/16/17 16:03 Internal Medicine: Result - Labs CBC & Chem 7: 04/02/17 03:14 04/02/17 03:14 Labs: Short CBC 04/02/17 Range/Units 03:14 WBC 12.3 H D (4.3-11.1) K/mcL Hgb 12.7 (11.5-15.4) g/dL Hct 40.7 (35.3-44.9) % Plt Count 231 (140-400) K/mcL BMP 04/02/17 03:14 Sodium 140 Potassium 4.4 Chloride 103 Carbon Dioxide 27 BUN 22 H Creatinine 0.83 Glucose 273 H Calcium 10.2 - ABG Interpretation ABG results: PT/INR, D-dimer PT 10.0 Seconds (9.4-12.1) 04/01/17 07:35 - Attending Attestation I examined this patient and my medical decision-making was reviewed with the Resident Physician. I agree with the documented findings, disposition and treatment plan as described except to the extent set forth below.
[2017-04-02] MEDS: Albuterol 2.5 MG/3 ML NEBULIZER IH SCH ×2 (09:09→15:44)
[2017-04-02] MEDS: Ketorolac 15 MG/ML VIAL IVP PRN (09:32)
[2017-04-02] MEDS: Azithromycin 500 MG in D5% in Water 250 ML IVPB SCH (09:32)
[2017-04-02] MEDS: Ipratropium/Albuterol Neb 3 ML IH SCH ×4 (11:47→23:38)
[2017-04-02 18:42] LABS: VBG HCO3 25.2 mEq/L (21-27); VBG PH 7.32 pH Units (7.32-7.42)
[2017-04-02] MEDS: MethylPREDNISolone 40 MG/ML VIAL IVP SCH (21:07)
[2017-04-02] MEDS: Latanoprost 2.5 ML BOTTLE BOTH EYES SCH (21:08)
[2017-04-02] MEDS: Artificial Tears SOLN 15 ML BOTTLE BOTH EYES SCH (21:09)
[2017-04-03] MEDS: Ipratropium/Albuterol Neb 3 ML IH SCH ×7 (03:48→23:43)
[2017-04-03 04:52] LABS: Basophils % 0.1 %; Eosinophils % 0.1 %; Hematocrit 36.1 % (35.3-44.9); Hemoglobin 11.3 g/dL (11.5-15.4); Immature Granulocytes % 0.7 % (0-4); Lymphocytes # 0.8 K/mcL (0.6-4.6); Mean Corpuscular HGB Conc 31.3 g/dL (31.6-35.5); Mean Corpuscular Hemoglobin 26.8 pg (28.0-33.3); Mean Corpuscular Volume 85.7 fL (83.0-100.0); Mean Platelet Volume 9.9 fL (9.4-12.4); Monocytes # 0.4 K/mcL (0.0-1.3); Monocytes % 2.5 %; Neutrophils # 14.5 K/mcL (1.6-8.9); Platelet Count 239 K/mcL (140-400); Red Blood Count 4.21 M/mcL (3.82-4.97); Red Cell Distribution Width 15.5 % (11.5-14.5); Segmented Neutrophils % 91.6 %
[2017-04-03 04:58] LABS: BUN/Creatinine Ratio 35 (6-26); Blood Urea Nitrogen 25 mg/dL (7-20); Calcium 9.7 mg/dL (8.6-10.8); Carbon Dioxide 28 mEq/L (19-29); Chloride 106 mEq/L (98-109); Glucose 215 mg/dL (70-99); Osmolality,Calculated 303 (280-300); Potassium 4.4 mEq/L (3.5-4.5); Sodium 141 mEq/L (136-145); eGFR For African Americans > 60 (> 60); eGFR For Non-African Americans > 60 (> 60)
[2017-04-03] MEDS: Budesonide/Formoterol 160/4.5 MDI IH SCH ×2 (07:36→19:52)
[2017-04-03] MEDS: *HR* Enoxaparin 40 MG/0.4 ML SYRINGE SQ SCH (09:37)
[2017-04-03] MEDS: MethylPREDNISolone 40 MG/ML VIAL IVP SCH ×2 (09:37→21:23)
[2017-04-03] MEDS: Aspirin Enteric Coated 81 MG Tablet PO SCH (09:37)
[2017-04-03] MEDS: Cyanocobalamin (B-12) 1,000 MCG TABLET PO SCH (09:37)
[2017-04-03] MEDS: Azithromycin 500 MG in D5% in Water 250 ML IVPB SCH (09:40)
--- NOTE | 2017-04-03 09:50 | Internal Med Progress Note ---
<Zackary Wolff - Last Filed: 04/03/17 18:13> Date of Encounter: 04/03/17 - Constitutional Vitals: Temp Pulse Resp BP Pulse Ox 98.0 F 102 16 96/58 92 04/03/17 15:47 04/03/17 15:47 04/03/17 16:01 04/03/17 15:47 04/03/17 16:01 Internal Medicine: Result - Labs CBC & Chem 7: 04/03/17 04:22 04/03/17 04:22 Labs: Short CBC 04/03/17 Range/Units 04:22 WBC 15.9 H (4.3-11.1) K/mcL Hgb 11.3 L (11.5-15.4) g/dL Hct 36.1 (35.3-44.9) % Plt Count 239 (140-400) K/mcL Neutrophils # 14.5 H (1.6-8.9) K/mcL BMP 04/03/17 04:22 Sodium 141 Potassium 4.4 Chloride 106 Carbon Dioxide 28 BUN 25 H Creatinine 0.72 Glucose 215 H Calcium 9.7 - ABG Interpretation ABG results: PT/INR, D-dimer PT 10.0 Seconds (9.4-12.1) 04/01/17 07:35 Consult Discharge Plan - Plan Referrals: Ray Garcia MD [Primary Care Provider] - 04/17/17 2:30 pm - Attending Attestation I examined this patient and my medical decision-making was reviewed with the Resident Physician. I agree with the documented findings, disposition and treatment plan as described except to the extent set forth below. <Bobby Jackson - Last Filed: 04/03/17 18:16> Date of Encounter: 04/03/17 Time of Encounter: 09:47 - Assessment and plan (1) Respiratory failure Current Visit: Yes Status: Acute Assessment and plan: likely secondary to COPD exacerbation. CXR showed no obvious signs of consolidaton or opacities. of note, patient was supposed to have surgery for ovarian cysts, but surgery held off due to her respiratory status. Plan: ceftriaxone and azithromycin day 3 scheduled duonebs with Albuterol PRN IV steroids oxygen as needed guanfenacin and robitussin DM PRN Qualifiers: Chronicity: acute on chronic Respiratory failure complication: hypoxia Qualified Code(s): J96.21 - Acute and chronic respiratory failure with hypoxia (2) Acute exacerbation of chronic obstructive airways disease Current Visit: No Status: Acute Assessment and plan: plan as above. (3) Diabetes Current Visit: Yes Status: Chronic Assessment and plan: hold metformin low dose sliding scale insulin. ACHS accuchecks. Qualifiers: Diabetes mellitus type: type 2 Diabetes mellitus complication status: with hyperglycemia Diabetes mellitus fdc insulin use: without long term care social worker use Qualified Code(s): E11.65 - Type 2 diabetes mellitus with hyperglycemia (4) Essential hypertension Current Visit: Yes Status: Chronic Assessment and plan: continue home meds (5) GERD (gastroesophageal reflux disease) Current Visit: Yes Status: Chronic Assessment and plan: continue home med omeprazole. Qualifiers: Esophagitis presence: without esophagitis Qualified Code(s): K21.9 - Gastro -esophageal reflux disease without esophagitis (6) Hyperlipidemia Current Visit: Yes Status: Chronic Assessment and plan: continue statin Qualifiers: Hyperlipidemia type: mixed hyperlipidemia Qualified Code(s): E78.2 - Mixed hyperlipidemia (7) Depression Current Visit: Yes Status: Chronic Assessment and plan: continue home meds Qualifiers: Depression Type: major depressive disorder Major depression recurrence: recurrent Active/Remission status: in remission of unspecified degree Qualified Code(s): F33.40 - Major depressive disorder, recurrent, in remission, unspecified (8) DVT prophylaxis Current Visit: No Status: Acute Assessment and plan: Lovenox SQ - Subjective Interval history: 68 year old female evaluated at bedside. she continued to have episodes of coughing spells. she denies nausea, vomiting, diarrhea, fever, chills, chest pain, shortness of breath. she denies any further complaints today. - Constitutional Vitals: Temp Pulse Resp BP Pulse Ox 97.9 F 87 16 97/60 96 04/03/17 07:07 04/03/17 07:07 04/03/17 07:36 04/03/17 07:07 04/03/17 07:36 General appearance: Present: mild distress, A&O X 3, pleasant, answers questions appropriately - Head Head exam: Present: atraumatic, normocephalic - Neck Neck exam general surgery: Present: supple, trachea midline - Respiratory Additional comments: diffuse wheezing and rales present, not much improvement from yesterday. - Cardiovascular Cardiovascular exam: Present: RRR, +S1, +S2 - GI/Abdominal GI/Abdominal exam: Present: normal bowel sounds, soft. Absent: distended, tenderness - Extremities Exam Extremities exam: Absent: cyanotic, pedal edema - Neurological Exam Neurological exam: Present: alert, oriented X3, no focal deficits - Psychiatric Psychiatric exam: Present: normal affect, normal mood Internal Medicine: Result - Labs CBC & Chem 7: 04/03/17 04:22 04/03/17 04:22 Labs: Short CBC 04/03/17 Range/Units 04:22 WBC 15.9 H (4.3-11.1) K/mcL Hgb 11.3 L (11.5-15.4) g/dL Hct 36.1 (35.3-44.9) % Plt Count 239 (140-400) K/mcL Neutrophils # 14.5 H (1.6-8.9) K/mcL BMP 04/03/17 04:22 Sodium 141 Potassium 4.4 Chloride 106 Carbon Dioxide 28 BUN 25 H Creatinine 0.72 Glucose 215 H Calcium 9.7 - ABG Interpretation ABG results: PT/INR, D-dimer PT 10.0 Seconds (9.4-12.1) 04/01/17 07:35
[2017-04-03] MEDS: Artificial Tears SOLN 15 ML BOTTLE BOTH EYES SCH ×2 (10:06→21:23)
[2017-04-03] MEDS: Insulin LISPRO 300 UNITS/3 ML VIAL SQ SCH ×4 (10:07→21:25)
[2017-04-03] MEDS: Latanoprost 2.5 ML BOTTLE BOTH EYES SCH (21:23)
[2017-04-04] MEDS: Ipratropium/Albuterol Neb 3 ML IH SCH ×6 (03:53→23:05)
[2017-04-04] MEDS: Budesonide/Formoterol 160/4.5 MDI IH SCH ×2 (08:11→19:38)
[2017-04-04] MEDS: Insulin LISPRO 300 UNITS/3 ML VIAL SQ SCH ×4 (09:52→20:59)
[2017-04-04] MEDS: Cyanocobalamin (B-12) 1,000 MCG TABLET PO SCH (10:05)
[2017-04-04] MEDS: Aspirin Enteric Coated 81 MG Tablet PO SCH (10:05)
[2017-04-04] MEDS: *HR* Enoxaparin 40 MG/0.4 ML SYRINGE SQ SCH (10:06)
[2017-04-04] MEDS: MethylPREDNISolone 40 MG/ML VIAL IVP SCH ×2 (10:06→20:09)
[2017-04-04] MEDS: Artificial Tears SOLN 15 ML BOTTLE BOTH EYES SCH ×2 (10:15→20:07)
[2017-04-04 10:35] LABS: Basophils % 0.2 %; Eosinophils # 0.1 K/mcL (0.0-0.6); Eosinophils % 0.5 %; Hematocrit 39.9 % (35.3-44.9); Hemoglobin 12.3 g/dL (11.5-15.4); Immature Granulocytes % 0.8 % (0-4); Immature Platelets 2.7 % (1.1-6.1); Lymphocytes # 2.7 K/mcL (0.6-4.6); Lymphocytes % 21.8 %; Mean Corpuscular HGB Conc 30.8 g/dL (31.6-35.5); Mean Corpuscular Hemoglobin 26.9 pg (28.0-33.3); Mean Corpuscular Volume 87.1 fL (83.0-100.0); Mean Platelet Volume 9.5 fL (9.4-12.4); Monocytes # 0.9 K/mcL (0.0-1.3); Monocytes % 7.1 %; Neutrophils # 8.6 K/mcL (1.6-8.9); Platelet Count 275 K/mcL (140-400); Red Blood Count 4.58 M/mcL (3.82-4.97); Red Cell Distribution Width 15.9 % (11.5-14.5); Segmented Neutrophils % 69.6 %
[2017-04-04 10:51] LABS: BUN/Creatinine Ratio 32 (6-26); Blood Urea Nitrogen 25 mg/dL (7-20); Calcium 9.8 mg/dL (8.6-10.8); Carbon Dioxide 31 mEq/L (19-29); Chloride 101 mEq/L (98-109); Glucose 179 mg/dL (70-99); Osmolality,Calculated 303 (280-300); Potassium 3.7 mEq/L (3.5-4.5); Sodium 142 mEq/L (136-145); eGFR For African Americans > 60 (> 60); eGFR For Non-African Americans > 60 (> 60)
[2017-04-04] MEDS: Azithromycin 500 MG in D5% in Water 250 ML IVPB SCH (10:53)
--- NOTE | 2017-04-04 11:37 | Internal Med Progress Note ---
<Bobby Jackson - Last Filed: 04/04/17 11:30> Date of Encounter: 04/04/17 Time of Encounter: 11:31 - Assessment and plan (1) Respiratory failure Current Visit: Yes Status: Acute Assessment and plan: likely secondary to COPD exacerbation. CXR showed no obvious signs of consolidaton or opacities. of note, patient was supposed to have surgery for ovarian cysts, but surgery held off due to her respiratory status. Plan: breathing not much improved from yesterday. ceftriaxone and azithromycin scheduled duonebs with Albuterol PRN IV steroids oxygen as needed guanfenacin and robitussin DM PRN Qualifiers: Chronicity: acute on chronic Respiratory failure complication: hypoxia Qualified Code(s): J96.21 - Acute and chronic respiratory failure with hypoxia (2) Acute exacerbation of chronic obstructive airways disease Current Visit: No Status: Acute Assessment and plan: plan as above. (3) Diabetes Current Visit: Yes Status: Chronic Assessment and plan: hold metformin low dose sliding scale insulin. ACHS accuchecks. Qualifiers: Diabetes mellitus type: type 2 Diabetes mellitus complication status: with hyperglycemia Diabetes mellitus retirement insulin use: without retirement use Qualified Code(s): E11.65 - Type 2 diabetes mellitus with hyperglycemia (4) Essential hypertension Current Visit: Yes Status: Chronic Assessment and plan: continue home meds (5) GERD (gastroesophageal reflux disease) Current Visit: Yes Status: Chronic Assessment and plan: continue home med omeprazole. Qualifiers: Esophagitis presence: without esophagitis Qualified Code(s): K21.9 - Gastro -esophageal reflux disease without esophagitis (6) Hyperlipidemia Current Visit: Yes Status: Chronic Assessment and plan: continue statin Qualifiers: Hyperlipidemia type: mixed hyperlipidemia Qualified Code(s): E78.2 - Mixed hyperlipidemia (7) Depression Current Visit: Yes Status: Chronic Assessment and plan: continue home meds Qualifiers: Depression Type: major depressive disorder Major depression recurrence: recurrent Active/Remission status: in remission of unspecified degree Qualified Code(s): F33.40 - Major depressive disorder, recurrent, in remission, unspecified (8) DVT prophylaxis Current Visit: No Status: Acute Assessment and plan: Lovenox SQ - Subjective Interval history: 68 year old female evaluated at bedside. she continues to cough, and denies no new problems today. - Constitutional Vitals: Temp Pulse Resp BP Pulse Ox 98.7 F 96 16 116/76 99 04/04/17 11:14 04/04/17 11:14 04/04/17 11:28 04/04/17 11:14 04/04/17 11:28 General appearance: Present: mild distress, A&O X 3, pleasant, answers questions appropriately - Head Head exam: Present: atraumatic, normocephalic - Neck Neck exam general surgery: Present: supple, trachea midline - Respiratory Respiratory exam: Present: rhonchi, wheezes (diffuse wheezing and rhonchi. ) - Cardiovascular Cardiovascular exam: Present: RRR, +S1, +S2 - GI/Abdominal GI/Abdominal exam: Present: soft. Absent: distended, tenderness - Extremities Exam Extremities exam: Absent: cyanotic, pedal edema - Neurological Exam Neurological exam: Present: alert, oriented X3, no focal deficits - Psychiatric Psychiatric exam: Present: normal affect, normal mood - Skin Skin exam: Present: intact Internal Medicine: Result - Labs CBC & Chem 7: 04/04/17 10:16 04/04/17 10:16 Labs: Short CBC 04/04/17 Range/Units 10:16 WBC 12.4 H (4.3-11.1) K/mcL Hgb 12.3 (11.5-15.4) g/dL Hct 39.9 (35.3-44.9) % Plt Count 275 (140-400) K/mcL Neutrophils # 8.6 (1.6-8.9) K/mcL BMP 04/04/17 10:16 Sodium 142 Potassium 3.7 Chloride 101 Carbon Dioxide 31 H BUN 25 H Creatinine 0.77 Glucose 179 H Calcium 9.8 - ABG Interpretation ABG results: PT/INR, D-dimer PT 10.0 Seconds (9.4-12.1) 04/01/17 07:35 Consult Discharge Plan - Plan Referrals: Ray Garcia MD [Primary Care Provider] - 04/17/17 2:30 pm <Zackary Wolff - Last Filed: 04/04/17 20:17> Date of Encounter: 04/04/17 - Constitutional Vitals: Temp Pulse Resp BP Pulse Ox 98.3 F 103 18 124/80 98 04/04/17 19:06 04/04/17 19:06 04/04/17 19:38 04/04/17 19:06 04/04/17 19:38 Internal Medicine: Result - Labs CBC & Chem 7: 04/04/17 10:16 04/04/17 10:16 Labs: Short CBC 04/04/17 Range/Units 10:16 WBC 12.4 H (4.3-11.1) K/mcL Hgb 12.3 (11.5-15.4) g/dL Hct 39.9 (35.3-44.9) % Plt Count 275 (140-400) K/mcL Neutrophils # 8.6 (1.6-8.9) K/mcL BMP 04/04/17 10:16 Sodium 142 Potassium 3.7 Chloride 101 Carbon Dioxide 31 H BUN 25 H Creatinine 0.77 Glucose 179 H Calcium 9.8 - ABG Interpretation ABG results: PT/INR, D-dimer PT 10.0 Seconds (9.4-12.1) 04/01/17 07:35 - Attending Attestation I examined this patient and my medical decision-making was reviewed with the Resident Physician. I agree with the documented findings, disposition and treatment plan as described except to the extent set forth below.
[2017-04-04] MEDS: *HR* Acetylcysteine 20% 600 MG/3 ML ORAL SYRINGE PO SCH (13:41)
[2017-04-04] MEDS: Latanoprost 2.5 ML BOTTLE BOTH EYES SCH (20:08)
[2017-04-05] MEDS: Ketorolac 15 MG/ML VIAL IVP PRN (01:34)
[2017-04-05] MEDS: Ipratropium/Albuterol Neb 3 ML IH SCH ×6 (03:47→23:44)
[2017-04-05 05:32] LABS: Basophils % 0.2 %; Hematocrit 39.2 % (35.3-44.9); Hemoglobin 12.4 g/dL (11.5-15.4); Immature Granulocytes % 1.1 % (0-4); Lymphocytes # 1.4 K/mcL (0.6-4.6); Mean Corpuscular HGB Conc 31.6 g/dL (31.6-35.5); Mean Corpuscular Hemoglobin 27.4 pg (28.0-33.3); Mean Corpuscular Volume 86.5 fL (83.0-100.0); Mean Platelet Volume 9.8 fL (9.4-12.4); Monocytes # 0.4 K/mcL (0.0-1.3); Monocytes % 3.8 %; Neutrophils # 9.6 K/mcL (1.6-8.9); Platelet Count 232 K/mcL (140-400); Red Blood Count 4.53 M/mcL (3.82-4.97); Red Cell Distribution Width 15.6 % (11.5-14.5); Segmented Neutrophils % 82.9 %
[2017-04-05 05:35] LABS: BUN/Creatinine Ratio 38 (6-26); Blood Urea Nitrogen 27 mg/dL (7-20); Calcium 9.7 mg/dL (8.6-10.8); Carbon Dioxide 34 mEq/L (19-29); Chloride 99 mEq/L (98-109); Glucose 158 mg/dL (70-99); Osmolality,Calculated 298 (280-300); Sodium 140 mEq/L (136-145); eGFR For African Americans > 60 (> 60); eGFR For Non-African Americans > 60 (> 60)
[2017-04-05 05:36] LABS: Potassium 5.1 mEq/L (3.5-4.5)
[2017-04-05] MEDS: *HR* Enoxaparin 40 MG/0.4 ML SYRINGE SQ SCH (06:01)
[2017-04-05] MEDS: Budesonide/Formoterol 160/4.5 MDI IH SCH ×2 (07:33→19:32)
[2017-04-05] MEDS: Insulin LISPRO 300 UNITS/3 ML VIAL SQ SCH ×4 (07:46→20:57)
[2017-04-05] MEDS: Cyanocobalamin (B-12) 1,000 MCG TABLET PO SCH (08:04)
[2017-04-05] MEDS: Aspirin Enteric Coated 81 MG Tablet PO SCH (08:04)
[2017-04-05] MEDS: MethylPREDNISolone 40 MG/ML VIAL IVP SCH ×2 (08:05→20:57)
[2017-04-05] MEDS: Artificial Tears SOLN 15 ML BOTTLE BOTH EYES SCH ×2 (08:06→21:00)
[2017-04-05] MEDS: Azithromycin 500 MG in D5% in Water 250 ML IVPB SCH (10:13)
--- NOTE | 2017-04-05 11:33 | Internal Med Progress Note ---
<Bobby Jackson - Last Filed: 04/05/17 11:24> Date of Encounter: 04/05/17 Time of Encounter: 11:24 - Assessment and plan (1) Respiratory failure Current Visit: Yes Status: Acute Assessment and plan: likely secondary to COPD exacerbation. CXR showed no obvious signs of consolidaton or opacities. of note, patient was supposed to have surgery for ovarian cysts, but surgery held off due to her respiratory status. Plan: breathing not much improved from yesterday. ceftriaxone and azithromycin scheduled duonebs with Albuterol PRN IV steroids oxygen as needed guanfenacin and robitussin DM PRN Qualifiers: Chronicity: acute on chronic Respiratory failure complication: hypoxia Qualified Code(s): J96.21 - Acute and chronic respiratory failure with hypoxia (2) Acute exacerbation of chronic obstructive airways disease Current Visit: No Status: Acute Assessment and plan: plan as above. (3) Diabetes Current Visit: Yes Status: Chronic Assessment and plan: hold metformin low dose sliding scale insulin. ACHS accuchecks. Qualifiers: Diabetes mellitus type: type 2 Diabetes mellitus complication status: with hyperglycemia Diabetes mellitus half-way insulin use: without half-way use Qualified Code(s): E11.65 - Type 2 diabetes mellitus with hyperglycemia (4) Essential hypertension Current Visit: Yes Status: Chronic Assessment and plan: continue home meds (5) GERD (gastroesophageal reflux disease) Current Visit: Yes Status: Chronic Assessment and plan: continue home med omeprazole. Qualifiers: Esophagitis presence: without esophagitis Qualified Code(s): K21.9 - Gastro -esophageal reflux disease without esophagitis (6) Hyperlipidemia Current Visit: Yes Status: Chronic Assessment and plan: continue statin Qualifiers: Hyperlipidemia type: mixed hyperlipidemia Qualified Code(s): E78.2 - Mixed hyperlipidemia (7) Depression Current Visit: Yes Status: Chronic Assessment and plan: continue home meds Qualifiers: Depression Type: major depressive disorder Major depression recurrence: recurrent Active/Remission status: in remission of unspecified degree Qualified Code(s): F33.40 - Major depressive disorder, recurrent, in remission, unspecified (8) DVT prophylaxis Current Visit: No Status: Acute Assessment and plan: Lovenox SQ - Subjective Interval history: 68 year old female evaluated at bedside. she is sitting up in bed watching tv and getting a breathing treatment. she denies nausea, vomiting, diarrhea, fever , chills, chest pain, and shortness of breath. she still has cough that is slightly improved since admission. she is still wheezing, and denies no new further problems today. - Constitutional Vitals: Temp Pulse Resp BP Pulse Ox 98.2 F 99 16 99/65 94 04/05/17 10:49 04/05/17 10:49 04/05/17 10:49 04/05/17 10:49 04/05/17 10:49 General appearance: Present: mild distress, A&O X 3, pleasant, answers questions appropriately - Head Head exam: Present: atraumatic, normocephalic - Neck Neck exam general surgery: Present: supple, trachea midline - Respiratory Additional comments: diffuse wheezing present in all lung [place]. - Cardiovascular Cardiovascular exam: Present: RRR, +S1, +S2 - Extremities Exam Extremities exam: Absent: cyanotic, pedal edema - Neurological Exam Neurological exam: Present: alert, oriented X3, no focal deficits - Skin Skin exam: Present: intact Internal Medicine: Result - Labs CBC & Chem 7: 04/05/17 05:17 04/05/17 05:17 Labs: Short CBC 04/05/17 Range/Units 05:17 WBC 11.5 H (4.3-11.1) K/mcL Hgb 12.4 (11.5-15.4) g/dL Hct 39.2 (35.3-44.9) % Plt Count 232 (140-400) K/mcL Neutrophils # 9.6 H (1.6-8.9) K/mcL BMP 04/05/17 05:17 Sodium 140 Potassium 5.1 H D Chloride 99 Carbon Dioxide 34 H BUN 27 H Creatinine 0.72 Glucose 158 H Calcium 9.7 - ABG Interpretation ABG results: PT/INR, D-dimer PT 10.0 Seconds (9.4-12.1) 04/01/17 07:35 Consult Discharge Plan - Plan Referrals: Ray Garcia MD [Primary Care Provider] - 04/17/17 2:30 pm <Zackary Wolff - Last Filed: 04/05/17 15:33> Date of Encounter: 04/05/17 - Constitutional Vitals: Temp Pulse Resp BP Pulse Ox 98.2 F 99 16 99/65 94 04/05/17 10:49 04/05/17 10:49 04/05/17 11:26 04/05/17 10:49 04/05/17 11:26 Internal Medicine: Result - Labs CBC & Chem 7: 04/05/17 05:17 04/05/17 05:17 Labs: Short CBC 04/05/17 Range/Units 05:17 WBC 11.5 H (4.3-11.1) K/mcL Hgb 12.4 (11.5-15.4) g/dL Hct 39.2 (35.3-44.9) % Plt Count 232 (140-400) K/mcL Neutrophils # 9.6 H (1.6-8.9) K/mcL BMP 04/05/17 05:17 Sodium 140 Potassium 5.1 H D Chloride 99 Carbon Dioxide 34 H BUN 27 H Creatinine 0.72 Glucose 158 H Calcium 9.7 - ABG Interpretation ABG results: PT/INR, D-dimer PT 10.0 Seconds (9.4-12.1) 04/01/17 07:35 - Attending Attestation I examined this patient and my medical decision-making was reviewed with the Resident Physician. I agree with the documented findings, disposition and treatment plan as described except to the extent set forth below. Gradually improving. We will continue same treatment. Home in 1-2 days.
[2017-04-05] MEDS: Latanoprost 2.5 ML BOTTLE BOTH EYES SCH (21:00)
[2017-04-06] MEDS: Ipratropium/Albuterol Neb 3 ML IH SCH ×6 (03:50→23:13)
[2017-04-06 03:56] LABS: Basophils % 0.3 %; Eosinophils % 0.1 %; Hematocrit 39.9 % (35.3-44.9); Hemoglobin 12.4 g/dL (11.5-15.4); Immature Granulocytes % 2.5 % (0-4); Immature Platelets 2.9 % (1.1-6.1); Lymphocytes # 1.1 K/mcL (0.6-4.6); Lymphocytes % 9.8 %; Mean Corpuscular HGB Conc 31.1 g/dL (31.6-35.5); Mean Corpuscular Hemoglobin 26.5 pg (28.0-33.3); Mean Corpuscular Volume 85.3 fL (83.0-100.0); Mean Platelet Volume 9.4 fL (9.4-12.4); Monocytes # 0.4 K/mcL (0.0-1.3); Monocytes % 3.4 %; Neutrophils # 9.5 K/mcL (1.6-8.9); Platelet Count 272 K/mcL (140-400); Red Blood Count 4.68 M/mcL (3.82-4.97); Red Cell Distribution Width 15.4 % (11.5-14.5); Segmented Neutrophils % 83.9 %
[2017-04-06 04:07] LABS: BUN/Creatinine Ratio 41 (6-26); Blood Urea Nitrogen 31 mg/dL (7-20); Calcium 9.3 mg/dL (8.6-10.8); Carbon Dioxide 30 mEq/L (19-29); Chloride 100 mEq/L (98-109); Glucose 221 mg/dL (70-99); Osmolality,Calculated 301 (280-300); Potassium 4.8 mEq/L (3.5-4.5); Sodium 139 mEq/L (136-145); eGFR For African Americans > 60 (> 60); eGFR For Non-African Americans > 60 (> 60)
[2017-04-06] MEDS: *HR* Enoxaparin 40 MG/0.4 ML SYRINGE SQ SCH (06:03)
[2017-04-06] MEDS: Insulin LISPRO 300 UNITS/3 ML VIAL SQ SCH ×4 (07:26→20:56)
[2017-04-06] MEDS: Budesonide/Formoterol 160/4.5 MDI IH SCH ×2 (07:52→19:35)
[2017-04-06] MEDS: Artificial Tears SOLN 15 ML BOTTLE BOTH EYES SCH ×2 (09:14→20:59)
[2017-04-06] MEDS: Furosemide 20 MG TABLET PO SCH (09:14)
[2017-04-06] MEDS: Aspirin Enteric Coated 81 MG Tablet PO SCH (09:14)
[2017-04-06] MEDS: MethylPREDNISolone 40 MG/ML VIAL IVP SCH ×2 (09:14→20:59)
[2017-04-06] MEDS: Cyanocobalamin (B-12) 1,000 MCG TABLET PO SCH (09:15)
[2017-04-06] MEDS: Azithromycin 500 MG in D5% in Water 250 ML IVPB SCH (11:02)
--- NOTE | 2017-04-06 15:20 | Internal Med Progress Note ---
Date of Encounter: 04/06/17 Time of Encounter: 15:18 - Assessment and plan (1) COPD exacerbation Current Visit: Yes Status: Acute Assessment and plan: Patient admitted with a COPD exacerbation. Was on IV ceftriaxone/azithromycin. Completed 4 days of azithromycin. Patient received intravenous steroid. Currently on a scheduled dose of bronchodilators. Plan: Overall there is a delay in response to the COPD exacerbation treatment as compared to what we expected. From to 3 onwards she started responded pretty well. Patient feels that she is coming back to her baseline. Possibly home tomorrow. (2) Essential hypertension Current Visit: Yes Status: Chronic Assessment and plan: continue home meds (3) Diabetes Current Visit: Yes Status: Chronic Assessment and plan: hold metformin low dose sliding scale insulin. ACHS accuchecks. Qualifiers: Diabetes mellitus type: type 2 Diabetes mellitus complication status: with hyperglycemia Diabetes mellitus long winder tender insulin use: without detention use Qualified Code(s): E11.65 - Type 2 diabetes mellitus with hyperglycemia (4) Former heavy tobacco smoker Current Visit: No Status: Chronic - Subjective Interval history: Seen and examined. Chart reviewed. Patient is comfortably lying in bed. Nexium patient still has occasionally short of breath. Patient denies chest pain, headache, nausea, vomiting and diarrhea. - Constitutional Vitals: Temp Pulse Resp BP Pulse Ox 98.1 F 95 16 112/68 94 04/06/17 11:27 04/06/17 11:27 04/06/17 15:12 04/06/17 11:27 04/06/17 15:12 General appearance: Present: mild distress, A&O X 3, pleasant, answers questions appropriately - Head Head exam: Present: atraumatic, normocephalic - Eye Eye exam: Present: PERRL, conjuntiva pink, sclera anicteric Pupils: Present: PERRL - Neck Neck exam general surgery: Present: supple, trachea midline. Absent: lymphadenopathy - Respiratory Respiratory exam: Present: CTAB. Absent: accessory muscle use, rales, rhonchi, wheezes - Cardiovascular Cardiovascular exam: Present: RRR, +S1, +S2. Absent: diastolic murmur, gallop, rubs, systolic murmur - GI/Abdominal GI/Abdominal exam: Present: normal bowel sounds, soft, no peritoneal signs. Absent: distended, tenderness - Extremities Exam Extremities exam: Present: warm, radial pulses palpable and symmetrical. Absent : calf tenderness, cyanotic, pedal edema - Neurological Exam Neurological exam: Present: CN II-XII intact, oriented X3, no focal deficits. Absent: pronater drift, facial droop, speech deficit - Skin Skin exam: Present: dry, intact Internal Medicine: Result - Labs CBC & Chem 7: 04/06/17 03:37 04/06/17 03:37 Labs: Short CBC 04/06/17 Range/Units 03:37 WBC 11.3 H (4.3-11.1) K/mcL Hgb 12.4 (11.5-15.4) g/dL Hct 39.9 (35.3-44.9) % Plt Count 272 (140-400) K/mcL Neutrophils # 9.5 H (1.6-8.9) K/mcL BMP 04/06/17 03:37 Sodium 139 Potassium 4.8 H Chloride 100 Carbon Dioxide 30 H BUN 31 H Creatinine 0.75 Glucose 221 H Calcium 9.3 - ABG Interpretation ABG results: PT/INR, D-dimer PT 10.0 Seconds (9.4-12.1) 04/01/17 07:35 Consult Discharge Plan - Plan Referrals: Ray Garcia MD [Primary Care Provider] - 04/17/17 2:30 pm
[2017-04-06] MEDS: Latanoprost 2.5 ML BOTTLE BOTH EYES SCH (20:59)
[2017-04-07] MEDS: Ipratropium/Albuterol Neb 3 ML IH SCH ×3 (03:21→11:18)
[2017-04-07] MEDS: Insulin LISPRO 300 UNITS/3 ML VIAL SQ SCH ×2 (07:34→11:20)
[2017-04-07] MEDS: Cyanocobalamin (B-12) 1,000 MCG TABLET PO SCH (07:39)
[2017-04-07] MEDS: Aspirin Enteric Coated 81 MG Tablet PO SCH (07:39)
[2017-04-07] MEDS: Furosemide 20 MG TABLET PO SCH (07:39)
[2017-04-07] MEDS: *HR* Enoxaparin 40 MG/0.4 ML SYRINGE SQ SCH (07:40)
[2017-04-07] MEDS: MethylPREDNISolone 40 MG/ML VIAL IVP SCH (07:42)
[2017-04-07] MEDS: Artificial Tears SOLN 15 ML BOTTLE BOTH EYES SCH (07:42)
[2017-04-07] MEDS: Budesonide/Formoterol 160/4.5 MDI IH SCH (07:47)
[2017-04-07 08:02] LABS: Basophils # 0.1 K/mcL (0.0-0.2); Basophils % 0.5 %; Eosinophils % 0.1 %; Hematocrit 43.9 % (35.3-44.9); Hemoglobin 13.7 g/dL (11.5-15.4); Immature Granulocytes % 2.9 % (0-4); Lymphocytes # 1.8 K/mcL (0.6-4.6); Lymphocytes % 10.4 %; Mean Corpuscular HGB Conc 31.2 g/dL (31.6-35.5); Mean Corpuscular Hemoglobin 26.8 pg (28.0-33.3); Mean Corpuscular Volume 85.9 fL (83.0-100.0); Mean Platelet Volume 9.4 fL (9.4-12.4); Monocytes # 0.7 K/mcL (0.0-1.3); Monocytes % 4.1 %; Neutrophils # 13.9 K/mcL (1.6-8.9); Platelet Count 279 K/mcL (140-400); Red Blood Count 5.11 M/mcL (3.82-4.97); Red Cell Distribution Width 15.4 % (11.5-14.5)
[2017-04-07 08:12] LABS: Alanine Aminotransferase 46 Units/L (0-55); Albumin 3.4 g/dL (3.5-5.0); Alkaline Phosphatase 41 Units/L (38-126); Aspartate Amino Transferase 27 Units/L (5-34); BUN/Creatinine Ratio 40 (6-26); Bilirubin,Total 0.4 mg/dL (0.2-1.2); Blood Urea Nitrogen 31 mg/dL (7-20); Calcium 9.4 mg/dL (8.6-10.8); Carbon Dioxide 29 mEq/L (19-29); Chloride 100 mEq/L (98-109); Globulin 3.3 g/dL (2.4-3.5); Glucose 148 mg/dL (70-99); Osmolality,Calculated 299 (280-300); Potassium 4.9 mEq/L (3.5-4.5); Sodium 140 mEq/L (136-145); Total Protein 6.7 g/dL (6.0-8.3); eGFR For African Americans > 60 (> 60); eGFR For Non-African Americans > 60 (> 60)
[2017-04-07] MEDS ORDERED: Azithromycin 250 MG TABLET PO SCH (09:00)
[2017-04-07 11:13] VITALS: BP 147/98
--- NOTE | 2017-04-07 11:41 | Discharge Summary ---
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 use Qualified Code(s): E11.65 - Type 2 diabetes mellitus with hyperglycemia (4) Essential hypertension Priority: Secondary Status: Chronic (5) GERD (gastroesophageal reflux disease) Priority: Secondary Status: Chronic Qualifiers: Esophagitis presence: without esophagitis Qualified Code(s): K21.9 - Gastro -esophageal reflux disease without esophagitis (6) Hyperlipidemia Priority: Secondary Status: Chronic Qualifiers: Hyperlipidemia type: mixed hyperlipidemia Qualified Code(s): E78.2 - Mixed hyperlipidemia (7) Depression Priority: Secondary Status: Chronic Qualifiers: Depression Type: major depressive disorder Major depression recurrence: recurrent Active/Remission status: in remission of unspecified degree Qualified Code(s): F33.40 - Major depressive disorder, recurrent, in remission, unspecified (8) DVT prophylaxis Priority: Secondary Status: Acute - Discharge Medications Prescriptions: GuaiFENesin/Dextromethorphan [Robitussin/Dm] 10 ml PO Q6HR PRN #1 bottle PRN Reason: Cough Amoxicillin/Clavulanate [Augmentin] 875 mg PO BIDWM #14 tablet Potassium Chloride 10 meq PO DAILY #30 tab.er.prt PredniSONE [Deltasone] 40 mg PO DAILY #10 tablet Home Medications: Albuterol Neb [Proventil Neb] 2.5 mg IH QID PRN 06/22/15 [History] Budesonide/Formoterol 160/4.5 [Symbicort] 2 puff IH BID 06/22/15 [History] Roflumilast [Daliresp] 500 mcg PO QAM 06/22/15 [History] Albuterol Sulfate [Proair Hfa] 2 puff IH Q4H PRN 07/14/16 [History] Atorvastatin Calcium [Lipitor] 80 mg PO QAM 07/14/16 [History] Sertraline [Zoloft] 50 mg PO DAILY 07/15/16 [History] Metoprolol [Lopressor] 12.5 mg PO BIDWM 30 Days 07/17/16 [Rx] Aspirin Enteric Coated [Aspirin EC] 81 mg PO DAILY 10/22/16 [History] Cyanocobalamin (Vitamin B-12) [Vitamin B-12] 1,000 mcg PO DAILY 10/22/16 [ History] Cyclosporine [Restasis] 1 each OP BID 10/22/16 [History] Ferrous Sulfate 325 mg PO DAILY 10/22/16 [History] Furosemide [Lasix] 20 mg PO DAILY 10/22/16 [History] Guaifenesin [Mucinex] 600 mg PO Q12H PRN 10/22/16 [History] Omeprazole [PriLOSEC] 20 mg PO DAILY 10/22/16 [History] Travoprost [Travatan Z] 1 drop OP QPM 10/22/16 [History] metFORMIN [Glucophage] 500 mg PO BIDWM #60 tablet 10/27/16 [Rx] Acetylcysteine [G-Eiqhon-l-Cysteine] 600 mg PO BID 04/01/17 [History] Cyclobenzaprine HCl 10 mg PO DAILY 04/01/17 [History] Ergocalciferol (VITAMIN D2) [Vitamin D2] 50,000 unit PO QWEEK 04/01/17 [History] Umeclidinium Snyder [Incruse Ellipta] 1 puff IH DAILY 04/01/17 [History] Amoxicillin/Clavulanate [Augmentin] 875 mg PO BIDWM #14 tablet 04/07/17 [Rx] GuaiFENesin/Dextromethorphan [Robitussin/Dm] 10 ml PO Q6HR PRN #1 bottle [Rx] Potassium Chloride 10 meq PO DAILY #30 tab.er.prt 04/07/17 [Rx] PredniSONE [Deltasone] 40 mg PO DAILY #10 tablet 04/07/17 [Rx] Allergies/Adverse Reactions: 3 Allergy/AdvReac Type Severity Reaction Status Date / Time acetaminophen [From Vicodin] AdvReac Headache Verified 07/15/16 13:34 hydrocodone [From Vicodin] AdvReac Headache Verified 07/15/16 13:34 methylprednisolone AdvReac Itching Verified 04/01/17 09:19 [From Solu-Medrol] Date of admission: 04/02/17 17:43 Primary care physician: Ray Garcia - Patient Status Disposition: Home, Self-Care Condition: Fair Functional capacity at discharge: independent ambulation Overall status at discharge: patient is progressing back to baseline - Discharge Instructions Instructions: Prednisone (By mouth), Amoxicillin (By mouth), Using Oxygen at Home (DC), Chronic Obstructive Pulmonary Disease (DC) Follow Up With: Ray Garcia MD [Primary Care Provider] - 04/17/17 2:30 pm Connie Rivera MD [Partnered Physician] - (web request...) Additional Instructions: finish antibiotic course as prescribed follow up with Primary care doctor within one week of discharge follow up with pulmonology take decreased dose of potassium daily until follow up with family doctor please return to ED if you develop fever, chills, chest pain, shortness of breath. - Diet and Activity Activity: increase activity as tolerated Diet: diabetic diet, low fat, low cholesterol Hospital course: Ms. Leon is a 61 year old female with PMHx of COPD, DM, GERD, glaucoma, HDL, HTN. Patient arrived to [facility] on 04/01/17 with chief complaint of dyspnea. She was found to be in respoiratory failure secondary to COPD exacerbation and was admitted for further workup. CXR showed no obvious signs of consoidation or opacities. SHe was started on azithromycin and ceftriaxone, steroids, scheduled duonebs, and oxygen as needed. Patient had sever wheezing upon initial examination, as well as very frequent cough. Patient's response to treatment was delayed, but she eventually started to show improvement after about 3 days of hospitalization. she was stable throughout the course of her hospital stay and remained stable upon discharge. she will follow up outpatient with PCP, pulmonology, and will finish her course of antibiotics. finish antibiotic course as prescribed follow up with Primary care doctor within one week of discharge follow up with pulmonology take decreased dose of potassium daily until follow up with family doctor please return to ED if you develop fever, chills, chest pain, shortness of breath. - Time Spent with Patient Total time spent providing and/or coordinating discharge services: - Constitutional Vitals: Temp Pulse Resp BP Pulse Ox 98.1 F 94 16 147/98 94 04/07/17 11:11 04/07/17 11:11 04/07/17 11:19 04/07/17 11:11 04/07/17 11:19 General appearance: Present: A&O X 3, pleasant, no acute distress, answers questions appropriately - Head Head exam: Present: atraumatic, normocephalic - Neck Neck exam general surgery: Present: supple, trachea midline - Respiratory Respiratory exam: Present: CTAB Additional comments: mild expiratory wheezing, significantly improved compared to admission. - Cardiovascular Cardiovascular exam: Present: RRR, +S1, +S2 - GI/Abdominal GI/Abdominal exam: Present: soft. Absent: distended, tenderness - Extremities Exam Extremities exam: Absent: cyanotic, pedal edema - Neurological Exam Neurological exam: Present: alert, oriented X3, no focal deficits - Psychiatric Psychiatric exam: Present: normal affect, normal mood - Skin Skin exam: Present: intact <Mariella,Zackary P - Last Filed: 04/07/17 16:30> Date of Encounter: 04/07/17 - Discharge Diagnosis (1) COPD exacerbation Status: Acute (2) Essential hypertension Status: Chronic (3) Diabetes Status: Chronic Qualifiers: Diabetes mellitus type: type 2 Diabetes mellitus complication status: with hyperglycemia Diabetes mellitus shelter insulin use: without shelter use Qualified Code(s): E11.65 - Type 2 diabetes mellitus with hyperglycemia (4) Former heavy tobacco smoker Status: Chronic Date of admission: 04/02/17 17:43 [facility] course: Ms. Leon is a 61 year old female - Time Spent with Patient Total time spent providing and/or coordinating discharge services: - Constitutional Vitals: Temp Pulse Resp BP Pulse Ox 98.1 F 94 16 147/98 94 04/07/17 11:11 04/07/17 11:11 04/07/17 11:19 04/07/17 11:11 04/07/17 11:19 - Attending Attestation I examined this patient and my medical decision-making was reviewed with the Resident Physician. I agree with the documented findings, disposition and treatment plan as described except to the extent set forth below.
== END 2017-04-07 12:44 | disposition home or self-care (01) | DRG 190 ==
LOC: 2ANU 06:48 → EMEROO 06:48 → 2ANU 09:20
PROVIDERS: ADMIT Internal Medicine; ATTEND Internal Medicine

== ENCOUNTER 2017-07-08 07:53 | Observation (INO) ==
[2017-07-08] MEDS ORDERED: methylPREDNISolone 125 MG/2 ML VIAL IVP ONE (07:57)
[2017-07-08] MEDS ORDERED: Ipratropium/Albuterol Neb 3 ML IH ONE (07:57)
--- NOTE | 2017-07-08 07:59 | Emergency Department Note ---
Disposition Clinical Impression: Acute exacerbation of chronic obstructive airways disease Acute and chronic respiratory failure ([id number]) Qualifiers: Respiratory failure complication: hypoxia and hypercapnia Qualified Code(s): J96.21 - Acute and chronic respiratory failure with hypoxia Disposition: Admitted As Inpatient Condition: Fair Time of Disposition: 10:48 SOB HPI - General Chief Complaint: ED Shortness of Breath/Dyspnea Stated Complaint: ROBER Time Seen by Provider: 07/08/17 07:56 Nursing Notes Reviewed: Yes Vital Signs Reviewed: Yes - History of Present Illness Mrs. Leon, a 61yo female, presents from home via EMS with chief complaint of difficulty breathing. Onset 4 days ago progressively worsening. Patient wears 2.5 L oxygen nasal cannula at home every night as well as as needed throughout the day. She has been wearing this continuously. Additionally, her home nebulizers are not helping. Per EMS, upon their arrival patient was tripoding. Improved in route after a single DuoNeb. PMH: COPD, CHF ROS: Positive: As above Negative: Fever, chills, nausea, vomiting, chest pains, palpitations, back pains , abdominal pains, changes in bowel or bladder habits, change in cough - Related Data Home Medications Medication Instructions Recorded Confirmed Budesonide/Formoterol 160/4.5 2 puff IH BID 06/22/15 07/08/17 [Symbicort] Roflumilast [Daliresp] 500 mcg PO QAM 06/22/15 07/08/17 Albuterol Sulfate [Proair Hfa] 2 puff IH Q4H PRN 07/14/16 07/08/17 Atorvastatin Calcium [Lipitor] 80 mg PO QAM 07/14/16 07/08/17 Sertraline [Zoloft] 50 mg PO DAILY 07/15/16 07/08/17 Aspirin Enteric Coated [Aspirin EC] 81 mg PO DAILY 10/22/16 07/08/17 Cyanocobalamin (Vitamin B-12) 1,000 mcg PO DAILY 10/22/16 07/08/17 [Vitamin B-12] Cyclosporine [Restasis] 1 each OP BID 10/22/16 07/08/17 Ferrous Sulfate 325 mg PO DAILY 10/22/16 07/08/17 Furosemide [Lasix] 20 mg PO DAILY 10/22/16 07/08/17 Guaifenesin [Mucinex] 600 mg PO Q12H PRN 10/22/16 07/08/17 Omeprazole [PriLOSEC] 20 mg PO DAILY 10/22/16 07/08/17 Travoprost [Travatan Z] 1 drop OP QPM 10/22/16 07/08/17 Acetylcysteine 600 mg PO BID 04/01/17 07/08/17 [V-Boauqi-u-Cysteine] Cyclobenzaprine HCl 10 mg PO DAILY 04/01/17 07/08/17 Ergocalciferol (VITAMIN D2) 50,000 unit PO QWEEK 04/01/17 07/08/17 [Vitamin D2] Umeclidinium Rio [Incruse 1 puff IH DAILY 04/01/17 07/08/17 Ellipta] Latanoprost [Xalatan] 1 drop OP HS 07/08/17 07/08/17 Nitroglycerin 0.4 mg PO Q5M PRN 07/08/17 07/08/17 Previous Rx's Medication Instructions Recorded Metoprolol [Lopressor] 12.5 mg PO BIDWM 30 Days tablet 07/17/16 metFORMIN [Glucophage] 500 mg PO BIDWM #60 tablet 10/27/16 Amoxicillin/Clavulanate [Augmentin] 875 mg PO BIDWM #14 tablet 04/07/17 GuaiFENesin/Dextromethorphan 10 ml PO Q6HR PRN #1 bottle 04/07/17 [Robitussin/Dm] Potassium Chloride 10 meq PO DAILY #30 tab.er.prt 04/07/17 PredniSONE [Deltasone] 40 mg PO DAILY #10 tablet 04/07/17 Allergies Allergy/AdvReac Type Severity Reaction Status Date / Time acetaminophen [From Vicodin] AdvReac Headache Verified 07/15/16 13:34 hydrocodone [From Vicodin] AdvReac Headache Verified 07/15/16 13:34 methylprednisolone AdvReac Itching Verified 04/01/17 09:19 [From Solu-Medrol] All systems ED: reviewed and negative except as stated. 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 HEENT: No facial asymmetry. Head is normocephalic and atraumatic. PERRLA, EOMI. because of moist. Trachea midline. Cardiovascular: Heart regular rate and rhythm without clicks, rubs, gallops, or murmurs. No JVD. PMI nondisplaced. Respiratory: Symmetric chest rise with poor respiratory effort. Prolonged expiratory phase. Bilateral breath sounds have diffuse wheezes without crackles or rhonchi. Abdomen: Bowel sounds present normoactive x-4 quadrants. Abdomen is soft, nondistended, and nontender. Musculoskeletal: Spontaneously moving all extremities. Neuro: Ambulates without difficulty. Skin: Warm, moist, intact Psych: Patient's affect is appropriate for situation. Course Course Narrative: Patient is saturating well on 4 L nasal cannula after single DuoNeb in route. Will provide additional duo nebs as well as lab work and imaging including EKG. Patient subjectively feels better after triple therapy of duo nebs. Clinically , however, she remains tachycardic with mild increased work of breathing. I believe that if she were to be discharged home, she would return to the ER within the next 12-24 hours. I discussed this with the patient; she is in agreement to admission for acute exacerbation of COPD and continued respiratory management. Patient's VBG shows respiratory acidosis with metabolic compensation consistent with acute on chronic respiratory failure. While in the ED, patient receives triple head of doing nebs as well as IV Levaquin 500 as Solu-Medrol for which she had no itching. As precaution, also gave 25 of Benadryl given her reported itching with Solu-Medrol. I discussed the patient with the admitting hospitalist, Dr. Wolff, who agrees to accept the patient for continued evaluation and management. Chest X-Ray 07/08/17 07:57 IMPRESSION: No acute cardiopulmonary findings. D/ / Lauren Sanchez MD / Lauern Sanchez MD Interpreting Provider: Lauren Sanchez MD Vital Signs Temperature 98.5 F 07/08/17 07:54 Pulse Rate 137 07/08/17 07:54 Respiratory Rate 16 07/08/17 07:54 Blood Pressure 119/75 07/08/17 07:54 O2 Sat by Pulse Oximetry 97 07/08/17 07:54 Temperature 98.3 F 07/08/17 15:12 Pulse Rate 103 07/08/17 15:12 Respiratory Rate 16 07/08/17 15:38 Blood Pressure 123/53 07/08/17 15:12 O2 Sat by Pulse Oximetry 96 07/08/17 15:38 Oxygen Delivery Oxygen Delivery Nasal Cannula Shortness of Breath/Dyspnea - Lab Data Result diagrams: 07/08/17 08:09 07/08/17 08:09 Lab Results 07/08/17 07/08/17 07/08/17 Range/Units 08:09 08:09 08:09 WBC 7.2 (4.3-11.1) K/mcL RBC 4.75 (3.82-4.97) M/mcL Hgb 13.0 (11.5-15.4) g/dL Hct 41.9 (35.3-44.9) % MCV 88.2 (83.0-100.0) fL MCH 27.4 L (28.0-33.3) pg MCHC 31.0 L (31.6-35.5) g/dL RDW 14.9 H (11.5-14.5) % Plt Count 256 (140-400) K/mcL MPV 9.3 L (9.4-12.4) fL Immature Gran % 0.4 (0-4) % Seg Neutrophils % 49.0 % Lymphocytes % 38.1 % Monocytes % 6.3 % Eosinophils % 5.4 % Basophils % 0.8 % Neutrophils # 3.5 (1.6-8.9) K/mcL Lymphocytes # 2.7 (0.6-4.6) K/mcL Monocytes # 0.5 (0.0-1.3) K/mcL Eosinophils # 0.4 (0.0-0.6) K/mcL Basophils # 0.1 (0.0-0.2) K/mcL VBG pH (7.32-7.42) pH Units VBG pCO2 (41-51) mmHg VBG pO2 (25-50) mmHg VBG HCO3 (21-27) mEq/L Sodium 138 (136-145) mEq/L Potassium 4.4 (3.5-4.5) mEq/L Chloride 105 (98-109) mEq/L Carbon Dioxide 23 (19-29) mEq/L BUN 16 (7-20) mg/dL Creatinine 0.76 (0.57-1.11) mg/dL Est GFR ( Amer) > 60 (> 60) Est GFR (Non-Af Amer) > 60 (> 60) BUN/Creatinine Ratio 21 (6-26) Glucose 145 H (70-99) mg/dL Calculated Osmolality 290 (280-300) Calcium 9.5 (8.6-10.8) mg/dL Troponin I 0.01 (0-0.03) ng/mL B-Natriuretic Peptide (0-100) pg/mL 07/08/17 07/08/17 Range/Units 08:09 08:18 WBC (4.3-11.1) K/mcL RBC (3.82-4.97) M/mcL Hgb (11.5-15.4) g/dL Hct (35.3-44.9) % MCV (83.0-100.0) fL MCH (28.0-33.3) pg MCHC (31.6-35.5) g/dL RDW (11.5-14.5) % Plt Count (140-400) K/mcL MPV (9.4-12.4) fL Immature Gran % (0-4) % Seg Neutrophils % % Lymphocytes % % Monocytes % % Eosinophils % % Basophils % % Neutrophils # (1.6-8.9) K/mcL Lymphocytes # (0.6-4.6) K/mcL Monocytes # (0.0-1.3) K/mcL Eosinophils # (0.0-0.6) K/mcL Basophils # (0.0-0.2) K/mcL VBG pH 7.31 L (7.32-7.42) pH Units VBG pCO2 57 H (41-51) mmHg VBG pO2 143 H (25-50) mmHg VBG HCO3 29 H (21-27) mEq/L Sodium (136-145) mEq/L Potassium (3.5-4.5) mEq/L Chloride (98-109) mEq/L Carbon Dioxide (19-29) mEq/L BUN (7-20) mg/dL Creatinine (0.57-1.11) mg/dL Est GFR ( Amer) (> 60) Est GFR (Non-Af Amer) (> 60) BUN/Creatinine Ratio (6-26) Glucose (70-99) mg/dL Calculated Osmolality (280-300) Calcium (8.6-10.8) mg/dL Troponin I (0-0.03) ng/mL B-Natriuretic Peptide < 10 (0-100) pg/mL Attestation Statement - Attestation Attestation: I examined this patient and my medical decision-making was reviewed with the Resident Physician. I agree with the documented findings, disposition and treatment plan as described except to the extent set forth below. COPD exacerbation. We will admit after bronchodilators, steroids, IV antibiotics. Patient had improvement of symptoms with interventions. Stable at time of admission.
[2017-07-08 08:21] LABS: Basophils # 0.1 K/mcL (0.0-0.2); Basophils % 0.8 %; Eosinophils # 0.4 K/mcL (0.0-0.6); Eosinophils % 5.4 %; Hematocrit 41.9 % (35.3-44.9); Immature Granulocytes % 0.4 % (0-4); Lymphocytes # 2.7 K/mcL (0.6-4.6); Lymphocytes % 38.1 %; Mean Corpuscular Hemoglobin 27.4 pg (28.0-33.3); Mean Corpuscular Volume 88.2 fL (83.0-100.0); Mean Platelet Volume 9.3 fL (9.4-12.4); Monocytes # 0.5 K/mcL (0.0-1.3); Monocytes % 6.3 %; Neutrophils # 3.5 K/mcL (1.6-8.9); Platelet Count 256 K/mcL (140-400); Red Blood Count 4.75 M/mcL (3.82-4.97); Red Cell Distribution Width 14.9 % (11.5-14.5)
[2017-07-08] MEDS: Levofloxacin 500 MG/100 ML 500 MG/100 ML BAG IVPB SCH (08:25)
[2017-07-08 08:27] LABS: BUN/Creatinine Ratio 21 (6-26); Blood Urea Nitrogen 16 mg/dL (7-20); Calcium 9.5 mg/dL (8.6-10.8); Carbon Dioxide 23 mEq/L (19-29); Chloride 105 mEq/L (98-109); Glucose 145 mg/dL (70-99); Osmolality,Calculated 290 (280-300); Sodium 138 mEq/L (136-145); eGFR For African Americans > 60 (> 60); eGFR For Non-African Americans > 60 (> 60)
[2017-07-08 08:28] LABS: Potassium 4.4 mEq/L (3.5-4.5)
[2017-07-08 09:03] LABS: VBG HCO3 29 mEq/L (21-27); VBG PCO2 57 mmHg (41-51); VBG PH 7.31 pH Units (7.32-7.42); VBG PO2 143 mmHg (25-50)
[2017-07-08] MEDS ORDERED: Naloxone 0.4 MG/ML INJ IVP PRN (11:49)
[2017-07-08] MEDS ORDERED: Albuterol 2.5 MG/3 ML NEBULIZER IH PRN (11:54)
[2017-07-08] MEDS ORDERED: *HR* Dextrose 50 % in Water (Syg) 50 ML SYRINGE IVP PRN (11:55)
[2017-07-08] MEDS ORDERED: D5% in Water 1,000 ML IVC PRN (11:55)
[2017-07-08] MEDS ORDERED: Dextrose Gel 15 GM PO PRN ×2 (11:55)
[2017-07-08] MEDS ORDERED: Ibuprofen 600 MG TABLET PO PRN ×3 (12:08→14:30)
--- NOTE | 2017-07-08 12:28 | Internal Med History&Physical ---
<Yolanda Cochran - Last Filed: 07/08/17 14:08> Date of Encounter: 07/08/17 Time of Encounter: 12:23 Assessment and Plan (1) Acute exacerbation of chronic obstructive airways disease Current visit: Yes Status: Acute 1 H has been experiencing increasing shortness of breath over the past 4 days with no improvement from bronchodilators or home oxygen. We will continue with Pgsf-Vfhrpi-fyhwbnmlds she does have an allergy which results in itching- she states she normally takes Benadryl with Solu-Medrol we will continue with Benadryl 2 continue bronchodilators 3 continue with oxygen titrated to maintain SPO2 greater than 92% 4 continue with daily resp 5 Levaquin daily 6 obtain sputum culture (2) Diabetes Current visit: No Status: Chronic 1 we will hold metformin for now patient is receiving steroids-anticipate rise in blood glucose we will check blood sugars before meals at bedtime with sliding scale insulin 2 diabetic diet Qualifiers: Diabetes mellitus type: type 2 Diabetes mellitus complication status: with hyperglycemia Diabetes mellitus wire taper insulin use: without half-way use Qualified Code(s): E11.65 - Type 2 diabetes mellitus with hyperglycemia (3) GERD (gastroesophageal reflux disease) Current visit: No Status: Chronic Prilosec Qualifiers: Esophagitis presence: without esophagitis Qualified Code(s): K21.9 - Gastro -esophageal reflux disease without esophagitis (4) Essential hypertension Current visit: No Status: Chronic 1 presently hypotensive-we will hold Lasix for now (5) DVT prophylaxis Current visit: No Status: Acute Lovenox subcutaneous Internal Medicine - H&P: HPI Chief complaint: SOB Admitted From: Emergency Dept Plans for Post Hospital Care: Home History of present illness: Ms. Leon is a 61 year old female past medical history of COPD oxygen dependent diabetes GERD hypertension hyperlipidemia. Patient has been experiencing increasing shortness of breath over the past 4 days despite the use of bronchodilators and home oxygen. She does have a productive cough with white sputum which she states is normal. She has been exposed to family member that has been ill. She has had her flu vaccine for this year she denies any fevers chills nausea vomiting diarrhea or chest pain. She presented to the ER with the above complaints. According to ER records patient did present some moderate respiratory distress. She did have some respiratory acidosis on VBG. She was given bronchodilators as well as steroids which did improve her respiratory state. Lab work was unremarkable chest x-ray with no acute process she was admitted for further workup and evaluation. Satish patient does not appear to be in respiratory distress she does have scattered wheezes upon auscultation. She is hemodynamically stable this time. Did review this case with Dr. Wolff who agrees with plan Past Med Surg Social Fam HX - Past Medical History Medical history: COPD, diabetes, GERD, glaucoma, hyperlipidemia, hypertension, other 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: anxiety, depression - Past Surgical History Surgical History: cataract, other - Social History Smoking Status: Former smoker Smokeless Tobacco Status: No Alcohol use: none Drug use: none - Family History Mother Adopted: No Living Status: Hx Family Cancer: Yes (pancreas) Father Living Status: Hx Family Cardiac Disorders: Yes Hx Family Endocrine Disorder: Yes Internal Medicine - H&P: Meds Budesonide/Formoterol 160/4.5 [Symbicort] 2 puff IH BID 06/22/15 [History] Roflumilast [Daliresp] 500 mcg PO QAM 06/22/15 [History] Albuterol Sulfate [Proair Hfa] 2 puff IH Q4H PRN 07/14/16 [History] Atorvastatin Calcium [Lipitor] 80 mg PO QAM 07/14/16 [History] Sertraline [Zoloft] 50 mg PO DAILY 07/15/16 [History] Metoprolol [Lopressor] 12.5 mg PO BIDWM 30 Days tablet 07/17/16 [Rx] Aspirin Enteric Coated [Aspirin EC] 81 mg PO DAILY 10/22/16 [History] Cyanocobalamin (Vitamin B-12) [Vitamin B-12] 1,000 mcg PO DAILY 10/22/16 [ History] Cyclosporine [Restasis] 1 each OP BID 10/22/16 [History] Ferrous Sulfate 325 mg PO DAILY 10/22/16 [History] Furosemide [Lasix] 20 mg PO DAILY 10/22/16 [History] Guaifenesin [Mucinex] 600 mg PO Q12H PRN 10/22/16 [History] Omeprazole [PriLOSEC] 20 mg PO DAILY 10/22/16 [History] Travoprost [Travatan Z] 1 drop OP QPM 10/22/16 [History] metFORMIN [Glucophage] 500 mg PO BIDWM #60 tablet 10/27/16 [Rx] Acetylcysteine [T-Pyhdpw-q-Cysteine] 600 mg PO BID 04/01/17 [History] Cyclobenzaprine HCl 10 mg PO DAILY 04/01/17 [History] Ergocalciferol (VITAMIN D2) [Vitamin D2] 50,000 unit PO QWEEK 04/01/17 [History] Umeclidinium [place] [Incruse Ellipta] 1 puff IH DAILY 04/01/17 [History] Amoxicillin/Clavulanate [Augmentin] 875 mg PO BIDWM #14 tablet 04/07/17 [Rx] GuaiFENesin/Dextromethorphan [Robitussin/Dm] 10 ml PO Q6HR PRN #1 bottle [Rx] Potassium Chloride 10 meq PO DAILY #30 tab.er.prt 04/07/17 [Rx] PredniSONE [Deltasone] 40 mg PO DAILY #10 tablet 04/07/17 [Rx] Latanoprost [Xalatan] 1 drop OP HS 07/08/17 [History] Nitroglycerin 0.4 mg PO Q5M PRN 07/08/17 [History] 3 Allergy/AdvReac Type Severity Reaction Status Date / Time acetaminophen [From Vicodin] AdvReac Headache Verified 07/15/16 13:34 hydrocodone [From Vicodin] AdvReac Headache Verified 07/15/16 13:34 methylprednisolone AdvReac Itching Verified 04/01/17 09:19 [From Solu-Medrol] All Systems PM: A 10-system review of systems was performed and is negative for pertinent findings except as documented above in the HPI. - Constitutional Constitutional: no chills, no fever(s), no night sweats - EENT Eyes: no change in vision, no discharge, no pain, no photophobia Nose, mouth and throat: no dysphagia, no nasal discharge, no neck pain, no sore throat - Cardiovascular Cardiovascular ROS IM: no chest pain, no diaphoresis, no dyspnea, no lightheadedness, no palpitations, no syncope - Respiratory Respiratory: dyspnea on exertion, wheezing, excessive phlegm production, no cough, no dyspnea - Gastrointestinal Gastrointestinal: no abdominal pain, no diarrhea, no hematemesis, no hematochezia, no melena, no nausea, no vomiting - Genitourinary Genitourinary: no change in urinary stream, no dysuria, no flank pain, no hematuria - Musculoskeletal Musculoskeletal ROS IM: no numbness, no tingling - Integumentary Integumentary IM: no rash, no unusual bruising - Neurological Neurological ROS: no confusion, no convulsions, no focal weakness, no numbness, no tingling, no tremor(s) - Hematologic/Lymphatic Hematologic/Lymphatic: no easy bruising - Constitutional Vitals: Temp Pulse Resp BP Pulse Ox 97.5 F L 109 15 115/81 97 07/08/17 10:47 07/08/17 10:47 07/08/17 10:47 07/08/17 10:47 07/08/17 10:47 General appearance: Present: A&O X 3, answers questions appropriately - Head Head exam: Present: atraumatic, normocephalic - Eye Eye exam: Present: PERRL, conjuntiva pink, sclera anicteric Pupils: Present: PERRL - Neck Neck exam general surgery: Present: supple, trachea midline. Absent: lymphadenopathy - Respiratory Respiratory exam: Present: wheezes. Absent: accessory muscle use, rales, rhonchi - Cardiovascular Cardiovascular exam: Present: RRR, +S1, +S2. Absent: diastolic murmur, gallop, rubs, systolic murmur - GI/Abdominal GI/Abdominal exam: Present: normal bowel sounds, soft, no peritoneal signs. Absent: distended, tenderness - Extremities Exam Extremities exam: Present: warm, radial pulses palpable and symmetrical. Absent : calf tenderness, cyanotic, pedal edema - Neurological Exam Neurological exam: Present: CN II-XII intact, oriented X3, no focal deficits. Absent: pronater drift, facial droop, speech deficit - Skin Skin exam: Present: dry, intact Internal Med - H&P Results - Labs CBC & Chem 7: 07/08/17 08:09 07/08/17 08:09 - EKG Data EKG shows normal: sinus rhythm - Diagnostic Studies Chest x-ray Additional comments: Chest X-Ray 07/08/17 07:57 IMPRESSION: No acute cardiopulmonary findings. D/ / Lauren Sanchez MD / Lauren Sanchez MD Interpreting Provider: Lauren Sanchez MD <Zackary Wolff P - Last Filed: 07/08/17 18:39> Date of Encounter: 07/08/17 Internal Medicine - H&P: HPI History of present illness: Ms. Leon is a 61 year old female All Systems PM: A 10-system review of systems was performed and is negative for pertinent findings except as documented above in the HPI. - Constitutional Vitals: Temp Pulse Resp BP Pulse Ox 98.3 F 103 16 123/53 96 07/08/17 15:12 07/08/17 15:12 07/08/17 15:38 07/08/17 15:12 07/08/17 15:38 Internal Med - H&P Results - Labs CBC & Chem 7: 07/08/17 08:09 07/08/17 08:09 - Attending Attestation I examined this patient and my medical decision-making was reviewed with the Resident Physician/LEAD TECHNICIAN. I agree with the documented findings, disposition and treatment plan as described except to the extent set forth below. Patient seen and examined Chart reviewed. Patient is admitted with COPD exacerbation. Intravenous antibiotics in terms of IV levofloxacin. Intravenous steroids in terms of Solu-Medrol 40 mg every 8. Inhaler bronchodilators every 4 hours. Close observation.
--- NOTE | 2017-07-08 14:12 | Electrocardiograph Report ---
[address] [address] Test Date: 2017-07-08 Pat Name: Geri Leon Department: 104 Room: 3B Gender: F Retort Engineer: MSC : [id number] Requested By: Zac Jamison Order Number: [id number] Reading MD: Camille Fletcher Measurements Intervals [place] Rate: 122 P: 82 WI: 133 QRS: 55 QRSD: 82 T: 73 QT: 304 QTc: 377 Interpretive Statements SINUS TACHYCARDIA WITH OCCASIONAL VENTRICULAR PREMATURE COMPLEXES ABNORMAL RHYTHM ECG Electronically Signed On 07-08-2017 14:11:25 EST by Camille Fletcher
[2017-07-08] MEDS: Ipratropium/Albuterol Neb 3 ML IH SCH ×4 (15:27→23:19)
[2017-07-08] MEDS: methylPREDNISolone 125 MG/2 ML VIAL IVP SCH ×2 (17:01→23:45)
[2017-07-08] MEDS: Insulin LISPRO 300 UNITS/3 ML VIAL SQ SCH ×2 (17:19→21:17)
[2017-07-08] MEDS: Budesonide/Formoterol 160/4.5 MDI IH SCH (19:32)
[2017-07-08] MEDS: *HR* Acetylcysteine 20% 600 MG/3 ML ORAL SYRINGE PO SCH (21:16)
[2017-07-08] MEDS: Latanoprost 2.5 ML BOTTLE RIGHT EYE SCH (21:19)
[2017-07-08] MEDS: CYCLOSPORINE OP SCH (21:19)
[2017-07-09] MEDS: Ipratropium/Albuterol Neb 3 ML IH SCH ×6 (03:16→23:30)
[2017-07-09 04:36] LABS: Basophils % 0.1 %; Hematocrit 39.9 % (35.3-44.9); Hemoglobin 12.2 g/dL (11.5-15.4); Immature Granulocytes % 0.8 % (0-4); Lymphocytes # 0.8 K/mcL (0.6-4.6); Lymphocytes % 6.8 %; Mean Corpuscular HGB Conc 30.6 g/dL (31.6-35.5); Mean Corpuscular Hemoglobin 27.1 pg (28.0-33.3); Mean Corpuscular Volume 88.5 fL (83.0-100.0); Mean Platelet Volume 9.3 fL (9.4-12.4); Monocytes # 0.1 K/mcL (0.0-1.3); Monocytes % 1.1 %; Neutrophils # 10.4 K/mcL (1.6-8.9); Platelet Count 255 K/mcL (140-400); Red Blood Count 4.51 M/mcL (3.82-4.97); Red Cell Distribution Width 14.9 % (11.5-14.5); Segmented Neutrophils % 91.2 %
[2017-07-09 04:53] LABS: BUN/Creatinine Ratio 21 (6-26); Blood Urea Nitrogen 19 mg/dL (7-20); Calcium 10.1 mg/dL (8.6-10.8); Carbon Dioxide 21 mEq/L (19-29); Chloride 104 mEq/L (98-109); Glucose 294 mg/dL (70-99); Magnesium 2.3 mg/dL (1.6-2.6); Osmolality,Calculated 299 (280-300); Potassium 4.2 mEq/L (3.5-4.5); Sodium 138 mEq/L (136-145); eGFR For African Americans > 60 (> 60); eGFR For Non-African Americans > 60 (> 60)
[2017-07-09] MEDS: *HR* Enoxaparin 40 MG/0.4 ML SYRINGE SQ SCH (06:01)
[2017-07-09] MEDS: methylPREDNISolone 125 MG/2 ML VIAL IVP SCH ×3 (06:01→23:17)
[2017-07-09] MEDS: Budesonide/Formoterol 160/4.5 MDI IH SCH ×2 (08:17→19:47)
[2017-07-09] MEDS ORDERED: 0.9 % Sodium Chloride 1,000 ML IVC SCH (09:00)
[2017-07-09] MEDS ORDERED: Furosemide 20 MG TABLET PO SCH (09:00)
[2017-07-09] MEDS: Cyanocobalamin (B-12) 1,000 MCG TABLET PO SCH (09:14)
[2017-07-09] MEDS: Insulin LISPRO 300 UNITS/3 ML VIAL SQ SCH ×4 (09:15→21:06)
[2017-07-09] MEDS: Aspirin Enteric Coated 81 MG Tablet PO SCH (09:15)
[2017-07-09] MEDS: CYCLOSPORINE OP SCH ×3 (09:17→20:11)
[2017-07-09] MEDS: Levofloxacin 500 MG/100 ML 500 MG/100 ML BAG IVPB SCH (09:17)
[2017-07-09] MEDS: Roflumilast [Daliresp] 500 MCG PO SCH (09:18)
[2017-07-09] MEDS: Umeclidinium Bromide [Incruse Ellipta] 1 PUFF IH SCH (09:18)
[2017-07-09] MEDS: *HR* Acetylcysteine 20% 600 MG/3 ML ORAL SYRINGE PO SCH ×2 (12:43→20:09)
[2017-07-09] MEDS ORDERED: Levofloxacin 500 MG/100 ML 500 MG/100 ML BAG IVPB SCH (13:00)
[2017-07-09] MEDS ORDERED: Benzonatate 100 MG CAPSULE PO PRN (15:57)
--- NOTE | 2017-07-09 16:31 | Internal Med Progress Note ---
Date of Encounter: 07/09/17 Time of Encounter: 09:55 - Assessment and plan (1) COPD exacerbation Current Visit: Yes Status: Acute Assessment and plan: Acute exacerbation. Patient reports in past increased productive cough, increased demand for oxygen, increase use of nebulizers. Onset 4-5 days ago. She reports productive cough with thick white sputum. Patient has mild leukocytosis, 11.4. Most likely due to steroid use. Accompanied with patient's tachycardia she has met SIRS criteria today. Continue to monitor. Lungs are diminished with wheezing throughout. Patient is unable to take a deep breath due to coughing. She is incontinent with cough. Continue albuterol nebulizers, DuoNeb's. Continue Tessalon Perles Continue Symbicort Continue IV Levaquin. Continue gentle fluid hydration. Continue IV Solu-Medrol 60 mg IV every 8 hours. Continue to titrate oxygen as needed to maintain sats greater than 92%. (2) Diabetes Current Visit: No Status: Chronic Assessment and plan: Hold home medications. Sliding scale insulin, diabetic diet, Accu-Cheks before meals at bedtime. Qualifiers: Diabetes mellitus type: type 2 Diabetes mellitus complication status: with hyperglycemia Diabetes mellitus group home insulin use: without superintendent marine oil terminal use Qualified Code(s): E11.65 - Type 2 diabetes mellitus with hyperglycemia (3) Essential hypertension Current Visit: No Status: Chronic Assessment and plan: Well controlled. Continue home medications. (4) DVT prophylaxis Current Visit: No Status: Acute Assessment and plan: Heparin subcutaneous. At to chair twice daily. (5) Cough Current Visit: Yes Status: Acute Assessment and plan: Patient reports productive cough with white sputum. She states it is thick. Encourage increased by mouth fluid intake Tessalon Perles for cough. Sputum culture ordered and pending. (6) Respiratory failure Current Visit: Yes Status: Chronic Assessment and plan: Acute on chronic respiratory failure. Patient states that she normally wears 2 L of oxygen at home at night. She is currently requiring 3 L of supplemental oxygen to maintain her sats. Continue to titrate as needed. Will attempt to wean prior to discharge. Qualifiers: Chronicity: acute on chronic Respiratory failure complication: hypoxia Qualified Code(s): J96.21 - Acute and chronic respiratory failure with hypoxia - Time Spent With Patient less than 15 minutes - Subjective Interval history: Patient was seen and assessed at 9:55 AM. Patient is exceptionally pleasant. She reports that she has had increased shortness of breath for the last 4-5 days at home. She reports increased use of oxygen and her nebulizers over the last 4-5 days. She reports productive cough with white sputum. She also reports that when she feels extra short of breath she becomes at bedtime which continues to make things worse. Patient is requiring additional oxygen beyond her baseline need of tendon half liters. She is requiring it all the time. She denies any chest pain, peripheral edema, headache, dizziness, nausea or vomiting. She denies syncope or near syncope. - Constitutional Vitals: Temp Pulse Resp BP Pulse Ox 98.3 F 103 18 108/70 98 07/09/17 15:38 07/09/17 15:38 07/09/17 15:52 07/09/17 15:38 07/09/17 15:52 General appearance: Present: cooperative, A&O X 3, pleasant, answers questions appropriately - Head Head exam: Present: atraumatic, normal inspection, normocephalic - Eye Eye exam: Present: normal appearance, conjuntiva pink, sclera anicteric - Neck Neck exam general surgery: Present: normal inspection, supple, trachea midline. Absent: lymphadenopathy, tenderness - Respiratory Respiratory exam: Present: decreased breath sounds, wheezes. Absent: accessory muscle use, chest wall tenderness, CTAB, rales, respiratory distress, rhonchi - Cardiovascular Cardiovascular exam: Present: RRR, +S1, +S2. Absent: diastolic murmur, gallop, rubs, systolic murmur - GI/Abdominal GI/Abdominal exam: Present: normal bowel sounds, soft, no peritoneal signs. Absent: distended, hepatomegaly, tenderness - Extremities Exam Extremities exam: Present: normal capillary refill, normal inspection, warm, radial pulses palpable and symmetrical. Absent: calf tenderness, cyanotic, pedal edema, tenderness - Neurological Exam Neurological exam: Present: alert, oriented X3, no focal deficits. Absent: facial droop, speech deficit - Skin Skin exam: Present: dry, intact, normal color, warm. Absent: rash Internal Medicine: Result - Labs CBC & Chem 7: 07/09/17 04:14 07/09/17 04:14 Labs: Short CBC 07/09/17 Range/Units 04:14 WBC 11.4 H D (4.3-11.1) K/mcL Hgb 12.2 (11.5-15.4) g/dL Hct 39.9 (35.3-44.9) % Plt Count 255 (140-400) K/mcL Neutrophils # 10.4 H (1.6-8.9) K/mcL BMP 07/09/17 04:14 Sodium 138 Potassium 4.2 Chloride 104 Carbon Dioxide 21 BUN 19 Creatinine 0.91 Glucose 294 H Calcium 10.1 Consult Discharge Plan - Plan Referrals: Ray Garcia MD [Primary Care Provider] - 07/23/17 9:00 am
--- NOTE | 2017-07-09 20:04 | Electrocardiograph Report ---
[place] [address] Test Date: 2017-07-08 Pat Name: Geri Leon Department: 113 Room: 3B Gender: F Healthcare Specialist: : 1955 Requested By: Daija Ramirez Order Number: [id number] Reading MD: Devon aSntiago MD Measurements Intervals [place] Rate: 100 P: 64 IN: 126 QRS: 52 QRSD: 82 T: 56 QT: 331 QTc: 388 Interpretive Statements SINUS TACHYCARDIA Electronically Signed On 07-09-2017 20:03:18 EST by Devon Santiago MD
[2017-07-09] MEDS: Latanoprost 2.5 ML BOTTLE RIGHT EYE SCH (20:11)
[2017-07-10] MEDS: Ipratropium/Albuterol Neb 3 ML IH SCH ×4 (04:10→11:30)
[2017-07-10 05:23] LABS: Basophils % 0.1 %; Hematocrit 36.7 % (35.3-44.9); Hemoglobin 11.5 g/dL (11.5-15.4); Lymphocytes # 0.9 K/mcL (0.6-4.6); Lymphocytes % 5.1 %; Mean Corpuscular HGB Conc 31.3 g/dL (31.6-35.5); Mean Corpuscular Hemoglobin 27.5 pg (28.0-33.3); Mean Corpuscular Volume 87.8 fL (83.0-100.0); Mean Platelet Volume 9.6 fL (9.4-12.4); Monocytes # 0.4 K/mcL (0.0-1.3); Monocytes % 2.4 %; Neutrophils # 15.1 K/mcL (1.6-8.9); Platelet Count 244 K/mcL (140-400); Red Blood Count 4.18 M/mcL (3.82-4.97); Red Cell Distribution Width 15.3 % (11.5-14.5); Segmented Neutrophils % 91.4 %
[2017-07-10 05:42] LABS: BUN/Creatinine Ratio 30 (6-26); Blood Urea Nitrogen 24 mg/dL (7-20); Calcium 10.1 mg/dL (8.6-10.8); Carbon Dioxide 26 mEq/L (19-29); Chloride 105 mEq/L (98-109); Glucose 226 mg/dL (70-99); Osmolality,Calculated 301 (280-300); Potassium 4.3 mEq/L (3.5-4.5); Sodium 140 mEq/L (136-145); eGFR For African Americans > 60 (> 60); eGFR For Non-African Americans > 60 (> 60)
[2017-07-10] MEDS: *HR* Enoxaparin 40 MG/0.4 ML SYRINGE SQ SCH (05:46)
[2017-07-10] MEDS: Budesonide/Formoterol 160/4.5 MDI IH SCH (07:53)
[2017-07-10] MEDS ORDERED: 0.9 % Sodium Chloride 1,000 ML IVC SCH (08:15)
[2017-07-10] MEDS: Aspirin Enteric Coated 81 MG Tablet PO SCH (08:54)
[2017-07-10] MEDS: Cyanocobalamin (B-12) 1,000 MCG TABLET PO SCH (08:55)
[2017-07-10] MEDS: Levofloxacin 500 MG/100 ML 500 MG/100 ML BAG IVPB SCH (08:55)
[2017-07-10] MEDS: methylPREDNISolone 125 MG/2 ML VIAL IVP SCH (08:55)
[2017-07-10] MEDS: Insulin LISPRO 300 UNITS/3 ML VIAL SQ SCH (08:56)
[2017-07-10] MEDS: CYCLOSPORINE OP SCH (09:01)
[2017-07-10] MEDS: Roflumilast [Daliresp] 500 MCG PO SCH (09:01)
[2017-07-10] MEDS: Umeclidinium Bromide [Incruse Ellipta] 1 PUFF IH SCH (09:01)
--- NOTE | 2017-07-10 11:22 | Discharge Summary ---
Date of Encounter: 07/10/17 Time of Encounter: 09:10 - Discharge Diagnosis (1) COPD exacerbation Priority: Primary Status: Acute Comments: Acute exacerbation. Patient reports in past increased productive cough, increased demand for oxygen, increase use of nebulizers. Onset 4-5 days ago. She reports productive cough with thick white sputum. Patient has mild leukocytosis that increased overnight, 16.5 today. Most likely due to steroid use. Vitals have normalized today and she is afebrile and is not tachycardic. She is back at her baseline 02 use, normotensive, and states that she feels well enough to go home and is ready to have Thanksgiving dinner with her family. Lungs are diminished with wheezing throughout, though improved since admission. Pt is able to take a deep breath, coughing has improved. She is ambulatory in her room without respiratory distress. Pt will be sent home with prescriptions for tessalon pearls, po Levaquin, prednisone taper. Pt has 02 at home and denies need for refills on inhalers or other medications. (2) Diabetes Priority: Secondary Status: Chronic Comments: Continue home dose of medications, diabetic diet, and accucheck regimen. Qualifiers: Diabetes mellitus type: type 2 Diabetes mellitus complication status: with hyperglycemia Diabetes mellitus termite control representative insulin use: without termite control representative use Qualified Code(s): E11.65 - Type 2 diabetes mellitus with hyperglycemia (3) Essential hypertension Priority: Secondary Status: Chronic Comments: Well controlled, continue home medications. (4) DVT prophylaxis Priority: Secondary Status: Acute Comments: Heparin SQ (5) Cough Priority: Secondary Status: Acute Comments: Patient reports productive cough with white sputum. She states it is thick. Encourage increased by mouth fluid intake once home Tessalon Perles for cough. (6) Respiratory failure Priority: Secondary Status: Chronic Comments: Acute on chronic. Pt is back to her baseline home 02 need. Normally wears 2.5 liters at home prn, was requiring increased amount as well as need for continuous use. Qualifiers: Chronicity: acute on chronic Respiratory failure complication: hypoxia Qualified Code(s): J96.21 - Acute and chronic respiratory failure with hypoxia - Discharge Medications Prescriptions: Benzonatate [Tessalon] 100 mg PO BID PRN #15 capsule PRN Reason: Cough Levofloxacin [Levaquin] 500 mg PO DAILY #7 tablet Home Medications: Budesonide/Formoterol 160/4.5 [Symbicort] 2 puff IH BID 06/22/15 [History] Roflumilast [Daliresp] 500 mcg PO QAM 06/22/15 [History] Albuterol Sulfate [Proair Hfa] 2 puff IH Q4H PRN 07/14/16 [History] Atorvastatin Calcium [Lipitor] 80 mg PO QAM 07/14/16 [History] Sertraline [Zoloft] 50 mg PO DAILY 07/15/16 [History] Metoprolol [Lopressor] 12.5 mg PO BIDWM 30 Days tablet 07/17/16 [Rx] Aspirin Enteric Coated [Aspirin EC] 81 mg PO DAILY 10/22/16 [History] Cyanocobalamin (Vitamin B-12) [Vitamin B-12] 1,000 mcg PO DAILY 10/22/16 [ History] Cyclosporine [Restasis] 1 each OP BID 10/22/16 [History] Ferrous Sulfate 325 mg PO DAILY 10/22/16 [History] Furosemide [Lasix] 20 mg PO DAILY 10/22/16 [History] Guaifenesin [Mucinex] 600 mg PO Q12H PRN 10/22/16 [History] Omeprazole [PriLOSEC] 20 mg PO DAILY 10/22/16 [History] Travoprost [Travatan Z] 1 drop OP QPM 10/22/16 [History] metFORMIN [Glucophage] 500 mg PO BIDWM #60 tablet 10/27/16 [Rx] Acetylcysteine [U-Kzhlnw-w-Cysteine] 600 mg PO BID 04/01/17 [History] Cyclobenzaprine HCl 10 mg PO DAILY 04/01/17 [History] Ergocalciferol (VITAMIN D2) [Vitamin D2] 50,000 unit PO QWEEK 04/01/17 [History] Umeclidinium [place] [Incruse Ellipta] 1 puff IH DAILY 04/01/17 [History] GuaiFENesin/Dextromethorphan [Robitussin/Dm] 10 ml PO Q6HR PRN #1 bottle [Rx] Potassium Chloride 10 meq PO DAILY #30 tab.er.prt 04/07/17 [Rx] PredniSONE [Deltasone] 40 mg PO DAILY #10 tablet 04/07/17 [Rx] Latanoprost [Xalatan] 1 drop OP HS 07/08/17 [History] Nitroglycerin 0.4 mg PO Q5M PRN 07/08/17 [History] Benzonatate [Tessalon] 100 mg PO BID PRN #15 capsule 07/10/17 [Rx] Levofloxacin [Levaquin] 500 mg PO DAILY #7 tablet 07/10/17 [Rx] Allergies/Adverse Reactions: 3 Allergy/AdvReac Type Severity Reaction Status Date / Time acetaminophen [From Vicodin] AdvReac Headache Verified 07/15/16 13:34 hydrocodone [From Vicodin] AdvReac Headache Verified 07/15/16 13:34 methylprednisolone AdvReac Itching Verified 04/01/17 09:19 [From Solu-Medrol] Procedures/tests Complete & Pending: Procedures Performed prior 72 hours Category Date Time Status ECG 12 lead ECG [ECG] Routine Y 07/08/17 16:00 Completed Date of admission: 07/08/17 10:05 Primary care physician: Ray Garcia Discharging clinician: Daija Ramirez Anticipated date of discharge: 07/10/17 - Patient Status Disposition: Home, Self-Care Condition: Good Functional capacity at discharge: independent ambulation Overall status at discharge: patient is back to baseline - Discharge Instructions Follow Up With: Ray Garcia MD [Primary Care Provider] - 07/23/17 9:00 am Additional Instructions: Please follow-up with your primary care provider in the next 7-10 days. Continue your oxygen and other home medications as you normally would. Get your prescriptions filled today if you can and take antibiotic as directed. Return to the emergency department as needed for any other problems or concerns , or if your symptoms return or worsen. Return to your normal activities and diet as tolerated. Stop smoking. - Diet and Activity Activity: increase activity as tolerated, wear oxygen at night Diet: diabetic diet Interval History: Please see assessment and plan for hospital course. Hospital course: Ms. Leon is a 61 year old female Time spent discussing smoking cessation with patient: 3 to 10 minutes - Time Spent with Patient Total time spent providing and/or coordinating discharge services: - Constitutional Vitals: Temp Pulse Resp BP Pulse Ox 97.6 F 66 16 128/69 98 07/10/17 08:02 07/10/17 08:02 07/10/17 08:02 07/10/17 08:02 07/10/17 08:02 General appearance: Present: cooperative, A&O X 3, pleasant, no acute distress, answers questions appropriately - Head Head exam: Present: atraumatic, normal inspection, normocephalic - Eye Eye exam: Present: normal appearance, conjuntiva pink, sclera anicteric - Neck Neck exam general surgery: Present: supple, trachea midline. Absent: lymphadenopathy, tenderness - Respiratory Respiratory exam: Present: wheezes. Absent: accessory muscle use, decreased breath sounds, rales, respiratory distress, rhonchi - Cardiovascular Cardiovascular exam: Present: RRR, +S1, +S2. Absent: diastolic murmur, gallop, rubs, systolic murmur - GI/Abdominal GI/Abdominal exam: Present: normal bowel sounds, soft. Absent: distended, hepatomegaly, tenderness - Extremities Exam Extremities exam: Present: normal capillary refill, normal inspection, warm, radial pulses palpable and symmetrical. Absent: calf tenderness, cyanotic, pedal edema - Neurological Exam Neurological exam: Present: alert, oriented X3, no focal deficits. Absent: facial droop, speech deficit - Skin Skin exam: Present: dry, intact, normal color, warm. Absent: rash
[2017-07-10 11:27] VITALS: BP 146/74
== END 2017-07-10 12:30 | disposition home or self-care (01) ==
LOC: EMEROO 07:53 → 3BNU 07:53
PROVIDERS: ADMIT Registered Nurse; ATTEND Registered Nurse

== ENCOUNTER 2017-08-30 03:38 | Inpatient (IN) ==
--- NOTE | 2017-08-30 03:47 | Emergency Department Note ---
Disposition Clinical Impression: Acute exacerbation of chronic obstructive airways disease Disposition: Admitted As Inpatient Condition: Fair Referrals: Ray Garcia MD [Primary Care Provider] - Forms: ED Satisfaction Letter Time of Disposition: 04:42 SOB HPI - General Chief Complaint: ED Shortness of Breath/Dyspnea Stated Complaint: difficulty in breathing Time Seen by Provider: 08/30/17 03:44 Source: patient Mode of arrival: EMS Limitations: no limitations Nursing Notes Reviewed: Yes Vital Signs Reviewed: Yes - History of Present Illness Nontoxic-appearing 61-year-old female presents with a complaint of worsening shortness of breath and productive cough. She states that she has had a productive cough for the past 2 weeks. Shortness of breath has worsened gradually over the course of the past 4 days. She states that her shortness of breath became markedly worse around 7 PM this evening. She admitted to EMS that she had administered 11 albuterol breathing treatments since 7:00 PM until now. She states she has a cough that is productive of a white discolored sputum. She denies any fever, chills, nausea, vomiting, or abdominal pain. She denies any overt chest pain but does complain of a "tightness or pressure" in her chest. She states that this does not radiate. It is diffusely across her chest. She states a known history of COPD and congestive heart failure. She states that she has noticed increasingly worsening degrees of orthopnea as well. Pt Subjective Complaint: shortness of breath, cough Onset (ago): day(s) (4) Severity: moderate Consistency/Duration: gradually worsening Improves with: oxygen, bronchodilators Worsens with: lying flat, exertion Known history of: COPD, congestive heart failure Associated symptoms: Reports: wheezing, sputum production, orthopnea. Denies: pain with inspiration, fever, lower extremity pain, palpitations, hemoptysis, nausea/vomiting, abdominal pain Treatment prior to arrival: oxygen, bronchodilator Cough present: Yes Cough Description: Involuntary Cough Frequency: Intermittent Sputum production: Yes Sputum Amount: Small Sputum Color: White - Related Data Home oxygen amount: 2 liters Home Medications Medication Instructions Recorded Confirmed Budesonide/Formoterol 160/4.5 2 puff IH BID 06/22/15 07/08/17 [Symbicort] Roflumilast [Daliresp] 500 mcg PO QAM 06/22/15 07/08/17 Albuterol Sulfate [Proair Hfa] 2 puff IH Q4H PRN 07/14/16 07/08/17 Atorvastatin Calcium [Lipitor] 80 mg PO QAM 07/14/16 07/08/17 Sertraline [Zoloft] 50 mg PO DAILY 07/15/16 07/08/17 Aspirin Enteric Coated [Aspirin EC] 81 mg PO DAILY 10/22/16 07/08/17 Cyanocobalamin (Vitamin B-12) 1,000 mcg PO DAILY 10/22/16 07/08/17 [Vitamin B-12] Cyclosporine [Restasis] 1 each OP BID 10/22/16 07/08/17 Ferrous Sulfate 325 mg PO DAILY 10/22/16 07/08/17 Furosemide [Lasix] 20 mg PO DAILY 10/22/16 07/08/17 Guaifenesin [Mucinex] 600 mg PO Q12H PRN 10/22/16 07/08/17 Omeprazole [PriLOSEC] 20 mg PO DAILY 10/22/16 07/08/17 Travoprost [Travatan Z] 1 drop OP QPM 10/22/16 07/08/17 Acetylcysteine 600 mg PO BID 04/01/17 07/08/17 [X-Xzmwuf-y-Cysteine] Cyclobenzaprine HCl 10 mg PO DAILY 04/01/17 07/08/17 Ergocalciferol (VITAMIN D2) 50,000 unit PO QWEEK 04/01/17 07/08/17 [Vitamin D2] Umeclidinium [place] [Incruse 1 puff IH DAILY 04/01/17 07/08/17 Ellipta] Latanoprost [Xalatan] 1 drop OP HS 07/08/17 07/08/17 Nitroglycerin 0.4 mg PO Q5M PRN 07/08/17 07/08/17 Previous Rx's Medication Instructions Recorded Metoprolol [Lopressor] 12.5 mg PO BIDWM 30 Days tablet 07/17/16 metFORMIN [Glucophage] 500 mg PO BIDWM #60 tablet 10/27/16 GuaiFENesin/Dextromethorphan 10 ml PO Q6HR PRN #1 bottle 04/07/17 [Robitussin/Dm] Potassium Chloride 10 meq PO DAILY #30 tab.er.prt 04/07/17 PredniSONE [Deltasone] 40 mg PO DAILY #10 tablet 04/07/17 Benzonatate [Tessalon] 100 mg PO BID PRN #15 capsule 07/10/17 Levofloxacin [Levaquin] 500 mg PO DAILY #7 tablet 07/10/17 Allergies Allergy/AdvReac Type Severity Reaction Status Date / Time acetaminophen [From Vicodin] AdvReac Headache Verified 07/15/16 13:34 hydrocodone [From Vicodin] AdvReac Headache Verified 07/15/16 13:34 methylprednisolone AdvReac Itching Verified 04/01/17 09:19 [From Solu-Medrol] All systems ED: reviewed and negative except as stated. Constitutional: Denies: fever, chills, weakness, weight change Eyes: Denies: eye pain, eye discharge, vision change ENT ED: Denies: ear pain, throat pain, dental pain, hearing loss, epistaxis, congestion, dysphagia Cardiovascular: Reports: as per HPI, other (chest pressure). Denies: chest pain , palpitations, dyspnea on exertion, edema, syncope Respiratory: Reports: as per HPI, cough, dyspnea, sputum production. Denies: wheezes, hemoptysis, stridor Gastrointestinal: Denies: abdominal pain, nausea, vomiting, diarrhea, constipation, hematemesis, melena, hematochezia Genitourinary: Denies: dysuria, frequency, hematuria, discharge Musculoskeletal: Denies: back pain, neck pain, arthralgia, myalgia Integumentary: Denies: rash, abrasion, lesions Neurological: Denies: headache, weakness, numbness, paresthesias, confusion, abnormal gait, vertigo Psychiatric: Denies: anxiety, depression, suicidal thoughts, homicidal thoughts , auditory hallucinations, visual hallucinations Endocrine: Denies: fatigue Hematological/Lymphatic: Denies: easy bleeding, easy bruising Allergic/Immunologic: Denies: facial swelling, urticaria Past Medical History - Past Medical History Attestation: Yes The following information was validated with the patient. 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 Absent: nystagmus - ENT ENT exam: mucous membranes moist - Neck Neck exam: Present: normal inspection, full ROM, trachea midline - Chest Chest inspection: Present: normal inspection, symmetric chest wall rise - Respiratory Respiratory exam: Present: respiratory distress (Mild, pursed lip breathing), wheezes (Inspiratory and extra wheezes noted throughout the periphery). Absent : accessory muscle use, prolonged expiratory phase - Cardiovascular Cardiovascular exam: Present: normal rhythm, tachycardia, normal heart sounds - Abdominal Exam Abdominal exam: Present: soft, Non-Tender, normal bowel sounds - Extremities Exam Extremities exam: Present: normal inspection, full ROM. Absent: tenderness, pedal edema - Neurological Exam Neurological exam: Present: alert, oriented X3 - Psychiatric Psychiatric exam: Present: normal affect, normal mood - Skin Skin exam: Present: warm, dry, intact, normal color Course Course Narrative: 0440: I spoke with hospitalist, Dr. Ball. He has accepted the patient for admission to the hospitalist service for further treatment of her COPD exacerbation. I have discussed this plan with Dr. Flood. He has had a face- to-face evaluation with the patient and agrees with this plan. The patient had refused the previously ordered BiPAP, however her breathing is much improved. She is resting in bed comfortably. She is no longer pursed lip breathing however she does have audible wheezes that persist. Vital Signs Temperature 98 F 08/30/17 03:39 Pulse Rate 116 08/30/17 03:39 Respiratory Rate 24 08/30/17 03:39 Blood Pressure 113/93 08/30/17 03:39 O2 Sat by Pulse Oximetry 99 08/30/17 03:39 Temperature 98 F 08/30/17 03:39 Pulse Rate 116 08/30/17 03:39 Respiratory Rate 24 08/30/17 03:39 Blood Pressure 113/93 08/30/17 03:39 O2 Sat by Pulse Oximetry 99 08/30/17 04:11 Oxygen Delivery Oxygen Delivery Nasal Cannula Shortness of Breath/Dyspnea - Differential Diagnosis Likely: acute exacerbation of chronic obstructive airways disease, congestive heart failure, pneumonia. Unlikely: pulmonary embolism (No pleuritic chest pain , or hemoptysis. She is tachycardic but this can be attributed to her multiple albuterol nebulizer administrations at home prior to arrival here.) - Medical Records Medical records reviewed: Yes I reviewed the patient's medical records. - Lab Data Lab results reviewed: Yes I reviewed the patient's lab results. Lab results narrative: Laboratory Last Values WBC 7.9 K/mcL (4.3-11.1) 08/30/17 03:56 RBC 4.65 M/mcL (3.82-4.97) 08/30/17 03:56 Hgb 12.7 g/dL (11.5-15.4) 08/30/17 03:56 Hct 41.1 % (35.3-44.9) 08/30/17 03:56 MCV 88.4 fL (83.0-100.0) 08/30/17 03:56 MCH 27.3 pg (28.0-33.3) L 08/30/17 03:56 MCHC 30.9 g/dL (31.6-35.5) L 08/30/17 03:56 RDW 14.3 % (11.5-14.5) 08/30/17 03:56 Plt Count 266 K/mcL (140-400) 08/30/17 03:56 MPV 9.4 fL (9.4-12.4) 08/30/17 03:56 Immature Gran % 0.4 % (0-4) 08/30/17 03:56 Seg Neutrophils % 52.8 % 08/30/17 03:56 Lymphocytes % 29.4 % 08/30/17 03:56 Monocytes % 7.2 % 08/30/17 03:56 Eosinophils % 9.4 % 08/30/17 03:56 Basophils % 0.8 % 08/30/17 03:56 Neutrophils # 4.2 K/mcL (1.6-8.9) 08/30/17 03:56 Lymphocytes # 2.3 K/mcL (0.6-4.6) 08/30/17 03:56 Monocytes # 0.6 K/mcL (0.0-1.3) 08/30/17 03:56 Eosinophils # 0.7 K/mcL (0.0-0.6) H 08/30/17 03:56 Basophils # 0.1 K/mcL (0.0-0.2) 08/30/17 03:56 PT 9.8 Seconds (9.4-12.1) 08/30/17 03:56 INR 0.9 08/30/17 03:56 APTT 24.9 Seconds (26.0-36.0) L 08/30/17 03:56 VBG pH 7.32 pH Units (7.32-7.42) 08/30/17 04:11 VBG pCO2 56 mmHg (41-51) H 08/30/17 04:11 VBG pO2 133 mmHg (25-50) H 08/30/17 04:11 VBG HCO3 29 mEq/L (21-27) H 08/30/17 04:11 Potassium 4.7 mEq/L (3.5-5.1) 08/30/17 03:56 Lactic Acid 1.7 mmol/L (0.5-2.2) 08/30/17 03:56 Troponin I < 0.03 ng/mL (< 0.04) 08/30/17 03:56 B-Natriuretic Peptide 5 pg/mL (Less than 100) 08/30/17 03:56 Result diagrams: 08/30/17 03:56 08/30/17 03:56 Lab Results 08/30/17 08/30/17 08/30/17 Range/Units 03:56 03:56 03:56 WBC 7.9 (4.3-11.1) K/mcL RBC 4.65 (3.82-4.97) M/mcL Hgb 12.7 (11.5-15.4) g/dL Hct 41.1 (35.3-44.9) % MCV 88.4 (83.0-100.0) fL MCH 27.3 L (28.0-33.3) pg MCHC 30.9 L (31.6-35.5) g/dL RDW 14.3 (11.5-14.5) % Plt Count 266 (140-400) K/mcL MPV 9.4 (9.4-12.4) fL Immature Gran % 0.4 (0-4) % Seg Neutrophils % 52.8 % Lymphocytes % 29.4 % Monocytes % 7.2 % Eosinophils % 9.4 % Basophils % 0.8 % Neutrophils # 4.2 (1.6-8.9) K/mcL Lymphocytes # 2.3 (0.6-4.6) K/mcL Monocytes # 0.6 (0.0-1.3) K/mcL Eosinophils # 0.7 H (0.0-0.6) K/mcL Basophils # 0.1 (0.0-0.2) K/mcL PT 9.8 (9.4-12.1) Seconds INR 0.9 APTT 24.9 L (26.0-36.0) Seconds VBG pH (7.32-7.42) pH Units VBG pCO2 (41-51) mmHg VBG pO2 (25-50) mmHg VBG HCO3 (21-27) mEq/L Sodium 139 (136-145) mEq/L Potassium 4.7 (3.5-5.1) mEq/L Chloride 106 (98-107) mEq/L Carbon Dioxide 26 (23-29) mEq/L BUN 17 (8-23) mg/dL Creatinine 0.70 (0.60-1.20) mg/dL Est GFR ( Amer) > 60 (> 60) Est GFR (Non-Af Amer) > 60 (> 60) BUN/Creatinine Ratio 24 (6-26) Glucose 127 H (70-105) mg/dL Calculated Osmolality 291 (280-300) Lactic Acid (0.5-2.2) mmol/L Calcium 9.5 (8.6-10.3) mg/dL Troponin I (< 0.04) ng/mL B-Natriuretic Peptide (Less than 100) pg/mL 08/30/17 08/30/17 08/30/17 Range/Units 03:56 03:56 03:56 WBC (4.3-11.1) K/mcL RBC (3.82-4.97) M/mcL Hgb (11.5-15.4) g/dL Hct (35.3-44.9) % MCV (83.0-100.0) fL MCH (28.0-33.3) pg MCHC (31.6-35.5) g/dL RDW (11.5-14.5) % Plt Count (140-400) K/mcL MPV (9.4-12.4) fL Immature Gran % (0-4) % Seg Neutrophils % % Lymphocytes % % Monocytes % % Eosinophils % % Basophils % % Neutrophils # (1.6-8.9) K/mcL Lymphocytes # (0.6-4.6) K/mcL Monocytes # (0.0-1.3) K/mcL Eosinophils # (0.0-0.6) K/mcL Basophils # (0.0-0.2) K/mcL PT (9.4-12.1) Seconds INR APTT (26.0-36.0) Seconds VBG pH (7.32-7.42) pH Units VBG pCO2 (41-51) mmHg VBG pO2 (25-50) mmHg VBG HCO3 (21-27) mEq/L Sodium (136-145) mEq/L Potassium (3.5-5.1) mEq/L Chloride (98-107) mEq/L Carbon Dioxide (23-29) mEq/L BUN (8-23) mg/dL Creatinine (0.60-1.20) mg/dL Est GFR ( Amer) (> 60) Est GFR (Non-Af Amer) (> 60) BUN/Creatinine Ratio (6-26) Glucose (70-105) mg/dL Calculated Osmolality (280-300) Lactic Acid 1.7 (0.5-2.2) mmol/L Calcium (8.6-10.3) mg/dL Troponin I < 0.03 (< 0.04) ng/mL B-Natriuretic Peptide 5 (Less than 100) pg/mL 08/30/17 Range/Units 04:11 WBC (4.3-11.1) K/mcL RBC (3.82-4.97) M/mcL Hgb (11.5-15.4) g/dL Hct (35.3-44.9) % MCV (83.0-100.0) fL MCH (28.0-33.3) pg MCHC (31.6-35.5) g/dL RDW (11.5-14.5) % Plt Count (140-400) K/mcL MPV (9.4-12.4) fL Immature Gran % (0-4) % Seg Neutrophils % % Lymphocytes % % Monocytes % % Eosinophils % % Basophils % % Neutrophils # (1.6-8.9) K/mcL Lymphocytes # (0.6-4.6) K/mcL Monocytes # (0.0-1.3) K/mcL Eosinophils # (0.0-0.6) K/mcL Basophils # (0.0-0.2) K/mcL PT (9.4-12.1) Seconds INR APTT (26.0-36.0) Seconds VBG pH 7.32 (7.32-7.42) pH Units VBG pCO2 56 H (41-51) mmHg VBG pO2 133 H (25-50) mmHg VBG HCO3 29 H (21-27) mEq/L Sodium (136-145) mEq/L Potassium (3.5-5.1) mEq/L Chloride (98-107) mEq/L Carbon Dioxide (23-29) mEq/L BUN (8-23) mg/dL Creatinine (0.60-1.20) mg/dL Est GFR ( Amer) (> 60) Est GFR (Non-Af Amer) (> 60) BUN/Creatinine Ratio (6-26) Glucose (70-105) mg/dL Calculated Osmolality (280-300) Lactic Acid (0.5-2.2) mmol/L Calcium (8.6-10.3) mg/dL Troponin I (< 0.04) ng/mL B-Natriuretic Peptide (Less than 100) pg/mL - Radiology Data Radiology results reviewed: Yes I reviewed the patient's radiology results. Chest X-Ray 08/30/17 03:44 IMPRESSION: No acute findings. D/ / Ramy Ruiz / Ramy Ruiz Interpreting Provider: Ramy Ruiz - EKG Data EKG attestation: Yes I reviewed and interpreted this EKG. EKG results narrative: EKG reviewed by Dr. Flood as well. EKG shows a sinus tachycardia at a rate of 118 bpm. WV interval 132, QRS duration 80, QT/QTc interval 298/368. No ectopy noted. No STEMI. Attestation Statement - Attestation Attestation: I examined this patient and my medical decision-making was reviewed with the Resident Physician. I agree with the documented findings, disposition and treatment plan as described except to the extent set forth below. Findings consistent with COPD exacerbation. Patient refuses BiPAP. Bronchodilators, steroids, antibiotics, will proceed with admission.
[2017-08-30] MEDS ORDERED: methylPREDNISolone 125 MG/2 ML VIAL IVP STA (03:51)
[2017-08-30] MEDS ORDERED: 0.9 % Sodium Chloride 500 ML IVC ONE (03:52)
[2017-08-30 04:08] LABS: Basophils # 0.1 K/mcL (0.0-0.2); Basophils % 0.8 %; Eosinophils # 0.7 K/mcL (0.0-0.6); Eosinophils % 9.4 %; Hematocrit 41.1 % (35.3-44.9); Hemoglobin 12.7 g/dL (11.5-15.4); Immature Granulocytes % 0.4 % (0-4); Lymphocytes # 2.3 K/mcL (0.6-4.6); Lymphocytes % 29.4 %; Mean Corpuscular HGB Conc 30.9 g/dL (31.6-35.5); Mean Corpuscular Hemoglobin 27.3 pg (28.0-33.3); Mean Corpuscular Volume 88.4 fL (83.0-100.0); Mean Platelet Volume 9.4 fL (9.4-12.4); Monocytes # 0.6 K/mcL (0.0-1.3); Monocytes % 7.2 %; Neutrophils # 4.2 K/mcL (1.6-8.9); Platelet Count 266 K/mcL (140-400); Red Blood Count 4.65 M/mcL (3.82-4.97); Red Cell Distribution Width 14.3 % (11.5-14.5); Segmented Neutrophils % 52.8 %
[2017-08-30 04:13] LABS: VBG HCO3 29 mEq/L (21-27); VBG PCO2 56 mmHg (41-51); VBG PH 7.32 pH Units (7.32-7.42); VBG PO2 133 mmHg (25-50)
[2017-08-30 04:14] LABS: INR 0.9; Prothrombin Time 9.8 Seconds (9.4-12.1)
[2017-08-30 04:17] LABS: Activated Partial Thrombo Time 24.9 Seconds (26.0-36.0)
[2017-08-30 04:30] LABS: Potassium 4.7 mEq/L (3.5-5.1)
[2017-08-30] MEDS ORDERED: Levofloxacin 750 MG/150 ML 750 MG/150 ML BAG IVPB ONE (04:39)
[2017-08-30 04:41] LABS: BUN/Creatinine Ratio 24 (6-26); Blood Urea Nitrogen 17 mg/dL (8-23); Calcium 9.5 mg/dL (8.6-10.3); Carbon Dioxide 26 mEq/L (23-29); Chloride 106 mEq/L (98-107); Glucose 127 mg/dL (70-105); Osmolality,Calculated 291 (280-300); Sodium 139 mEq/L (136-145); eGFR For African Americans > 60 (> 60); eGFR For Non-African Americans > 60 (> 60)
[2017-08-30 04:47] LABS: Bilirubin,Urine Negative (Negative); Blood,Urine Negative (Negative); Clarity,Urine Clear (Clear); Color,Urine Yellow (Yellow); Glucose,Urine (UA) Normal (Normal); Ketones,Urine Negative (Negative); Leukocyte Esterase,Urine Negative (Negative); Nitrite,Urine Negative (Negative); Protein,Urine Negative (Neg-Trace); Specific Gravity,Urine 1.025 (1.010-1.025); Urobilinogen,Urine Normal (Normal)
[2017-08-30] MEDS ORDERED: Naloxone 0.4 MG/ML INJ IVP PRN (05:14)
--- NOTE | 2017-08-30 05:23 | Internal Med History&Physical ---
Date of Encounter: 08/30/17 Time of Encounter: 05:21 Assessment and Plan (1) COPD (chronic obstructive pulmonary disease) Current visit: No Status: Chronic send RVP, duonebs, IV steroids, iv azithromycin Qualifiers: COPD type: COPD with acute exacerbation Qualified Code(s): J44.1 - Chronic obstructive pulmonary disease with (acute) exacerbation (2) Diabetes Current visit: No Status: Chronic add ISS with steroids Qualifiers: Diabetes mellitus type: type 2 Qualified Code(s): E11.9 - Type 2 diabetes mellitus without complications (3) Essential hypertension Current visit: No Status: Chronic continue BP med Internal Medicine - H&P: HPI History of present illness: Ms. Leon is a 61 year old female who presents with copd exacerbation She reported 4 days hx of worsening SOB. At baseline, she uses 2.5 L NC qHS and prn during daytime. She quit smoking in . SOB associated with cough. She get so winded that it was difficult ambulating in her house. She has duoneb at home and uses it many times this past evening to no improvement which led to ED visit. She denies any overt URI viral illness on review. EKG personally reviewed with rate 118, sinus tachy XR/XR chest 1V portable IMPRESSION: No acute findings. Past Med Surg Social Fam HX - Past Medical History Medical history: COPD, diabetes, GERD, glaucoma, hyperlipidemia, hypertension, other 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: anxiety, depression - Past Surgical History Surgical History: cataract, other - Social History Smoking Status: Former smoker Smokeless Tobacco Status: No Alcohol use: none Drug use: none - Family History Mother Adopted: No Living Status: Hx Family Cancer: Yes (pancreas) Father Living Status: Hx Family Cardiac Disorders: Yes Hx Family Endocrine Disorder: Yes Internal Medicine - H&P: Meds Budesonide/Formoterol 160/4.5 [Symbicort] 2 puff IH BID 06/22/15 [History] Roflumilast [Daliresp] 500 mcg PO QAM 06/22/15 [History] Albuterol Sulfate [Proair Hfa] 2 puff IH Q4H PRN 07/14/16 [History] Atorvastatin Calcium [Lipitor] 80 mg PO QAM 07/14/16 [History] Sertraline [Zoloft] 50 mg PO DAILY 07/15/16 [History] Metoprolol [Lopressor] 12.5 mg PO BIDWM 30 Days tablet 07/17/16 [Rx] Aspirin Enteric Coated [Aspirin EC] 81 mg PO DAILY 10/22/16 [History] Cyanocobalamin (Vitamin B-12) [Vitamin B-12] 1,000 mcg PO DAILY 10/22/16 [ History] Cyclosporine [Restasis] 1 each OP BID 10/22/16 [History] Ferrous Sulfate 325 mg PO DAILY 10/22/16 [History] Furosemide [Lasix] 20 mg PO DAILY 10/22/16 [History] Guaifenesin [Mucinex] 600 mg PO Q12H PRN 10/22/16 [History] Omeprazole [PriLOSEC] 20 mg PO DAILY 10/22/16 [History] Travoprost [Travatan Z] 1 drop OP QPM 10/22/16 [History] metFORMIN [Glucophage] 500 mg PO BIDWM #60 tablet 10/27/16 [Rx] Acetylcysteine [M-Vihuib-k-Cysteine] 600 mg PO BID 04/01/17 [History] Cyclobenzaprine HCl 10 mg PO DAILY 04/01/17 [History] Ergocalciferol (VITAMIN D2) [Vitamin D2] 50,000 unit PO QWEEK 04/01/17 [History] Umeclidinium [place] [Incruse Ellipta] 1 puff IH DAILY 04/01/17 [History] GuaiFENesin/Dextromethorphan [Robitussin/Dm] 10 ml PO Q6HR PRN #1 bottle [Rx] Potassium Chloride 10 meq PO DAILY #30 tab.er.prt 04/07/17 [Rx] PredniSONE [Deltasone] 40 mg PO DAILY #10 tablet 04/07/17 [Rx] Latanoprost [Xalatan] 1 drop OP HS 07/08/17 [History] Nitroglycerin 0.4 mg PO Q5M PRN 07/08/17 [History] Benzonatate [Tessalon] 100 mg PO BID PRN #15 capsule 07/10/17 [Rx] Levofloxacin [Levaquin] 500 mg PO DAILY #7 tablet 07/10/17 [Rx] 3 Allergy/AdvReac Type Severity Reaction Status Date / Time acetaminophen [From Vicodin] AdvReac Headache Verified 07/15/16 13:34 hydrocodone [From Vicodin] AdvReac Headache Verified 07/15/16 13:34 methylprednisolone AdvReac Itching Verified 04/01/17 09:19 [From Solu-Medrol] All Systems PM: A 10-system review of systems was performed and is negative for pertinent findings except as documented above in the HPI. Review of systems: ROS 14 point review of systems reviewed as best as possible given presentation. Pertinent positive or negative as per HPI or otherwise reviewed as negative - Constitutional Vitals: Temp Pulse Resp BP Pulse Ox 98 F 116 20 125/73 99 08/30/17 03:39 08/30/17 03:39 08/30/17 05:12 08/30/17 05:12 08/30/17 04:11 Exam: General - AAO x 3 Psych - Appropriate affect/speech. No agitation Eyes - LORETA. Eye lids intact. No scleral icterus Heart - Sinus tachy. RRR. S1 and S2 present. No added HS/murmurs appreciated Lung - Adequate air entry b/l, Diffuse wheezes appreciated GI - Soft, non-tender. No hepatosplenomegaly/ascites. BS+ - No CVA/suprapubic tenderness or palpable bladder distension Skin - Intact. No rash/petechiae/ecchymosis. Warm extremities MSK - Joints with normal ROM. No joint swellings Internal Med - H&P Results - Labs CBC & Chem 7: 08/30/17 03:56 08/30/17 03:56
[2017-08-30] MEDS ORDERED: *HR* Dextrose 50 % in Water (Syg) 50 ML SYRINGE IVP PRN (05:26)
[2017-08-30] MEDS ORDERED: Dextrose Gel 15 GM/37.5 ML TUBE PO PRN ×2 (05:26)
[2017-08-30] MEDS ORDERED: D5% in Water 1,000 ML IVC PRN (05:26)
[2017-08-30] MEDS: MethylPREDNISolone 40 MG/ML VIAL IVP SCH ×3 (05:54→17:18)
[2017-08-30] MEDS: Ipratropium/Albuterol Neb 3 ML IH SCH ×4 (05:54→22:00)
[2017-08-30] MEDS: *HR* Enoxaparin 40 MG/0.4 ML SYRINGE SQ SCH (05:58)
[2017-08-30] MEDS: Aspirin Enteric Coated 81 MG Tablet PO SCH (08:16)
[2017-08-30] MEDS: *HR* Metformin 500 MG TABLET PO SCH ×2 (08:16→17:18)
[2017-08-30] MEDS: Furosemide 20 MG TABLET PO SCH (08:16)
[2017-08-30] MEDS: Insulin LISPRO 300 UNITS/3 ML VIAL SQ SCH ×4 (08:17→20:20)
[2017-08-30] MEDS: Roflumilast [Daliresp] 500 MCG PO SCH (08:23)
[2017-08-30 08:38] LABS: Adenovirus Not Detected (Not Detect); Bordetella Pertussis Not Detected (Not Detect); Chlamydophila pneumoniae Not Detected (Not Detect); Coronavirus 229E Not Detected (Not Detect); Coronavirus HKU1 Not Detected (Not Detect); Coronavirus NL63 Not Detected (Not Detect); Coronavirus OC43 Not Detected (Not Detect); Human Metapneumovirus Not Detected (Not Detect); Human Rhinovirus/Enterovirus Not Detected (Not Detect); Influenza A Subtype 2009 H1 Not Detected (Not Detect); Influenza A Untypeable Not Detected (Not Detect); Influenza B Not Detected (Not Detect); Mycoplasma pneumoniae Not Detected (Not Detect); Parainfluenza Virus 1 Not Detected (Not Detect); Parainfluenza Virus 2 Not Detected (Not Detect); Parainfluenza Virus 3 Not Detected (Not Detect); Parainfluenza Virus 4 Not Detected (Not Detect); Respiratory Syncytial Virus Not Detected (Not Detect)
[2017-08-30] MEDS: Budesonide/Formoterol 160/4.5 MDI IH SCH ×2 (10:02→22:01)
--- NOTE | 2017-08-30 10:54 | Internal Med Progress Note ---
Date of Encounter: 08/30/17 Time of Encounter: 10:52 - Assessment and plan (1) Acute and chronic respiratory failure ([id number]) Current Visit: No Status: Acute Assessment and plan: Acute on chronic hypoxic respiratory failure secondary to acute COPD exacerbation due to acute bacterial bronchitis Continue azithromycin, Solu-Medrol IV, DuoNeb nebs and oxygen therapy The patient uses 2.5 L of oxygen at home continuously Qualifiers: Respiratory failure complication: hypoxia Qualified Code(s): J96.21 - Acute and chronic respiratory failure with hypoxia (2) Acute exacerbation of chronic obstructive airways disease Current Visit: Yes Status: Acute (3) CHF (congestive heart failure) Current Visit: No Status: Chronic Assessment and plan: observation Echocardiogram from May 2017 showed: Ejection fraction of 55% with mild diastolic dysfunction Qualifiers: Congestive heart failure type: diastolic Congestive heart failure chronicity: chronic Qualified Code(s): I50.32 - Chronic diastolic (congestive ) heart failure (4) Diabetes Current Visit: No Status: Chronic Assessment and plan: Continue insulin sliding scale Qualifiers: Diabetes mellitus type: type 2 Diabetes mellitus complication status: without complication Diabetes mellitus long term care social worker insulin use: without long term care social worker use Qualified Code(s): E11.9 - Type 2 diabetes mellitus without complications (5) GERD (gastroesophageal reflux disease) Current Visit: No Status: Chronic Qualifiers: Esophagitis presence: without esophagitis Qualified Code(s): K21.9 - Gastro -esophageal reflux disease without esophagitis (6) Former heavy tobacco smoker Current Visit: No Status: Chronic - Subjective Interval history: Still feeling very short of breath, no chest pain, no abdominal pain, fevers, no dysuria or diarrhea - Constitutional Vitals: Temp Pulse Resp BP Pulse Ox 98.1 F 95 22 129/76 99 08/30/17 05:26 08/30/17 05:26 08/30/17 05:56 08/30/17 05:26 08/30/17 05:56 General appearance: Present: A&O X 3 - Head Head exam: Present: atraumatic, normocephalic - Eye Eye exam: Present: PERRL, conjuntiva pink, sclera anicteric Pupils: Present: PERRL - Neck Neck exam general surgery: Present: supple, trachea midline. Absent: lymphadenopathy - Respiratory Respiratory exam: Present: CTAB, wheezes (Diffuse wheezing). Absent: accessory muscle use, rales, rhonchi - Cardiovascular Cardiovascular exam: Present: RRR, +S1, +S2. Absent: diastolic murmur, gallop, rubs, systolic murmur - GI/Abdominal GI/Abdominal exam: Present: normal bowel sounds, soft, no peritoneal signs. Absent: distended, tenderness - Extremities Exam Extremities exam: Present: warm, radial pulses palpable and symmetrical. Absent : calf tenderness, cyanotic, pedal edema - Neurological Exam Neurological exam: Present: CN II-XII intact, oriented X3, no focal deficits. Absent: pronater drift, facial droop, speech deficit - Skin Skin exam: Present: dry, intact Internal Medicine: Result - Labs CBC & Chem 7: 08/30/17 03:56 08/30/17 03:56 - ABG Interpretation ABG results: PT/INR, D-dimer PT 9.8 Seconds (9.4-12.1) 08/30/17 03:56 Consult Discharge Plan - Plan Referrals: Ray Garcia MD [Primary Care Provider] -
[2017-08-30] MEDS: Benzonatate 100 MG CAPSULE PO PRN (17:26)
[2017-08-30] MEDS: Ibuprofen 400 MG TABLET PO PRN (20:21)
[2017-08-30] MEDS: Latanoprost 2.5 ML BOTTLE BOTH EYES SCH (21:08)
[2017-08-31] MEDS: MethylPREDNISolone 40 MG/ML VIAL IVP SCH ×5 (00:06→20:54)
[2017-08-31] MEDS: Ipratropium/Albuterol Neb 3 ML IH SCH ×4 (04:07→22:28)
[2017-08-31] MEDS: *HR* Enoxaparin 40 MG/0.4 ML SYRINGE SQ SCH (06:27)
[2017-08-31] MEDS: Azithromycin 500 MG in D5% in Water 250 ML IVPB SCH (06:27)
[2017-08-31] MEDS: *HR* Metformin 500 MG TABLET PO SCH ×2 (07:55→16:47)
[2017-08-31] MEDS: Furosemide 20 MG TABLET PO SCH (07:55)
[2017-08-31] MEDS: Aspirin Enteric Coated 81 MG Tablet PO SCH (07:55)
[2017-08-31] MEDS: Roflumilast [Daliresp] 500 MCG PO SCH (07:56)
[2017-08-31] MEDS: Insulin LISPRO 300 UNITS/3 ML VIAL SQ SCH ×4 (07:56→20:58)
[2017-08-31] MEDS: Budesonide/Formoterol 160/4.5 MDI IH SCH ×2 (10:45→22:27)
--- NOTE | 2017-08-31 13:23 | Internal Med Progress Note ---
Date of Encounter: 08/31/17 Time of Encounter: 13:22 - Assessment and plan (1) Acute and chronic respiratory failure ([id number]) Current Visit: No Status: Acute Assessment and plan: Acute on chronic hypoxic respiratory failure secondary to acute COPD exacerbation due to acute bacterial bronchitis Continue azithromycin day #2, decrease frequency of Solu-Medrol IV, DuoNeb nebs and oxygen therapy The patient uses 2.5 L of oxygen at home continuously Qualifiers: Respiratory failure complication: hypoxia Qualified Code(s): J96.21 - Acute and chronic respiratory failure with hypoxia (2) Acute exacerbation of chronic obstructive airways disease Current Visit: Yes Status: Acute (3) CHF (congestive heart failure) Current Visit: No Status: Chronic Assessment and plan: Stable on oral Lasix Echocardiogram from May 2017 showed: Ejection fraction of 55% with mild diastolic dysfunction Qualifiers: Congestive heart failure type: diastolic Congestive heart failure chronicity: chronic Qualified Code(s): I50.32 - Chronic diastolic (congestive ) heart failure (4) Diabetes Current Visit: No Status: Chronic Assessment and plan: Continue insulin sliding scale Qualifiers: Diabetes mellitus type: type 2 Diabetes mellitus complication status: without complication Diabetes mellitus termite treater insulin use: without termite treater use Qualified Code(s): E11.9 - Type 2 diabetes mellitus without complications (5) GERD (gastroesophageal reflux disease) Current Visit: No Status: Chronic Qualifiers: Esophagitis presence: without esophagitis Qualified Code(s): K21.9 - Gastro -esophageal reflux disease without esophagitis (6) Former heavy tobacco smoker Current Visit: No Status: Chronic - Subjective Interval history: Feeling short of breath, coughing constantly, no chest pain, no abdominal pain , fevers, no dysuria or diarrhea - Constitutional Vitals: Temp Pulse Resp BP Pulse Ox 97.9 F 110 16 96/72 97 08/31/17 07:00 08/31/17 07:00 08/31/17 10:45 08/31/17 07:00 08/31/17 10:45 General appearance: Present: A&O X 3 - Head Head exam: Present: atraumatic, normocephalic - Eye Eye exam: Present: PERRL, conjuntiva pink, sclera anicteric Pupils: Present: PERRL - Neck Neck exam general surgery: Present: supple, trachea midline. Absent: lymphadenopathy - Respiratory Respiratory exam: Present: CTAB, wheezes (Diffuse wheezing). Absent: accessory muscle use, rales, rhonchi - Cardiovascular Cardiovascular exam: Present: RRR, +S1, +S2. Absent: diastolic murmur, gallop, rubs, systolic murmur - GI/Abdominal GI/Abdominal exam: Present: normal bowel sounds, soft, no peritoneal signs. Absent: distended, tenderness - Extremities Exam Extremities exam: Present: warm, radial pulses palpable and symmetrical. Absent : calf tenderness, cyanotic, pedal edema - Neurological Exam Neurological exam: Present: CN II-XII intact, oriented X3, no focal deficits. Absent: pronater drift, facial droop, speech deficit - Skin Skin exam: Present: dry, intact Internal Medicine: Result - Labs CBC & Chem 7: 08/30/17 03:56 08/30/17 03:56 - ABG Interpretation ABG results: PT/INR, D-dimer PT 9.8 Seconds (9.4-12.1) 08/30/17 03:56 Consult Discharge Plan - Plan Referrals: Ray Garcia MD [Primary Care Provider] -
[2017-08-31] MEDS: Benzonatate 100 MG CAPSULE PO PRN (16:47)
[2017-08-31] MEDS: Ibuprofen 400 MG TABLET PO PRN (20:54)
[2017-08-31] MEDS: Latanoprost 2.5 ML BOTTLE BOTH EYES SCH (20:54)
[2017-09-01] MEDS: Benzonatate 100 MG CAPSULE PO PRN ×2 (02:28→14:33)
[2017-09-01] MEDS: Ipratropium/Albuterol Neb 3 ML IH SCH ×5 (05:05→23:40)
[2017-09-01] MEDS: *HR* Enoxaparin 40 MG/0.4 ML SYRINGE SQ SCH (05:19)
[2017-09-01] MEDS: Azithromycin 500 MG in D5% in Water 250 ML IVPB SCH (05:19)
[2017-09-01] MEDS: Aspirin Enteric Coated 81 MG Tablet PO SCH (08:44)
[2017-09-01] MEDS: MethylPREDNISolone 40 MG/ML VIAL IVP SCH ×3 (08:44→21:13)
[2017-09-01] MEDS: Furosemide 20 MG TABLET PO SCH (08:44)
[2017-09-01] MEDS: *HR* Metformin 500 MG TABLET PO SCH (08:44)
[2017-09-01] MEDS: Insulin LISPRO 300 UNITS/3 ML VIAL SQ SCH ×4 (08:45→21:13)
[2017-09-01] MEDS ORDERED: Cefepime HCl 1,000 MG in D5% in Water (Mini-Bag+) 100 ML IVPB SCH (10:13)
--- NOTE | 2017-09-01 10:16 | Internal Med Progress Note ---
Date of Encounter: 09/01/17 Time of Encounter: 10:14 - Assessment and plan (1) Acute and chronic respiratory failure ([id number]-[id number]) Current Visit: No Status: Acute Assessment and plan: Acute on chronic hypoxic respiratory failure secondary to acute COPD exacerbation due to acute bacterial bronchitis, possibly progressing to Gram negative pneumonia. The patient was discharged from the hospital on 07/10/2017, we will treat as possible healthcare associated pneumonia likely present upon admission and is slowly developing not responding to azithromycin Discontinue azithromycin at day #2 Start Cefepime and Levaquin IV Order CT scan of the chest Continue Solu-Medrol IV, DuoNeb nebs and oxygen therapy The patient uses 2.5 L of oxygen at home continuously Qualifiers: Respiratory failure complication: hypoxia Qualified Code(s): J96.21 - Acute and chronic respiratory failure with hypoxia (2) Acute exacerbation of chronic obstructive airways disease Current Visit: Yes Status: Acute (3) CHF (congestive heart failure) Current Visit: No Status: Chronic Assessment and plan: Stable on oral Lasix May discontinue if decompensates Echocardiogram from May 2017 showed: Ejection fraction of 55% with mild diastolic dysfunction Qualifiers: Congestive heart failure type: diastolic Congestive heart failure chronicity: chronic Qualified Code(s): I50.32 - Chronic diastolic (congestive ) heart failure (4) Diabetes Current Visit: No Status: Chronic Assessment and plan: Continue insulin sliding scale Qualifiers: Diabetes mellitus type: type 2 Diabetes mellitus complication status: without complication Diabetes mellitus senior living insulin use: without intermodal truck driver use Qualified Code(s): E11.9 - Type 2 diabetes mellitus without complications (5) GERD (gastroesophageal reflux disease) Current Visit: No Status: Chronic Qualifiers: Esophagitis presence: without esophagitis Qualified Code(s): K21.9 - Gastro -esophageal reflux disease without esophagitis (6) Former heavy tobacco smoker Current Visit: No Status: Chronic - Subjective Interval history: Feeling more short of breath, coughing constantly and bringing up greenish yellowish phlegm, wheezing loudly, no chest pain, no abdominal pain, fevers, no dysuria or diarrhea - Constitutional Vitals: Temp Pulse Resp BP Pulse Ox 98.2 F 108 22 124/82 95 09/01/17 07:00 09/01/17 07:00 09/01/17 07:00 09/01/17 07:00 09/01/17 07:00 General appearance: Present: A&O X 3 - Head Head exam: Present: atraumatic, normocephalic - Eye Eye exam: Present: PERRL, conjuntiva pink, sclera anicteric Pupils: Present: PERRL - Neck Neck exam general surgery: Present: supple, trachea midline. Absent: lymphadenopathy - Respiratory Respiratory exam: Present: CTAB, rales (Diffuse wheezing and crackles), wheezes. Absent: accessory muscle use, rhonchi - Cardiovascular Cardiovascular exam: Present: RRR, +S1, +S2. Absent: diastolic murmur, gallop, rubs, systolic murmur - GI/Abdominal GI/Abdominal exam: Present: normal bowel sounds, soft, no peritoneal signs. Absent: distended, tenderness - Extremities Exam Extremities exam: Present: warm, radial pulses palpable and symmetrical. Absent : calf tenderness, cyanotic, pedal edema - Neurological Exam Neurological exam: Present: CN II-XII intact, oriented X3, no focal deficits. Absent: pronater drift, facial droop, speech deficit - Skin Skin exam: Present: dry, intact Internal Medicine: Result - Labs CBC & Chem 7: 08/30/17 03:56 08/30/17 03:56 - ABG Interpretation ABG results: PT/INR, D-dimer PT 9.8 Seconds (9.4-12.1) 08/30/17 03:56 Consult Discharge Plan - Plan Referrals: Ray Garcia MD [Primary Care Provider] -
[2017-09-01] MEDS: Budesonide/Formoterol 160/4.5 MDI IH SCH ×2 (10:36→23:40)
[2017-09-01] MEDS: Roflumilast [Daliresp] 500 MCG PO SCH (12:03)
[2017-09-01] MEDS: Levofloxacin 750 MG/150 ML 750 MG/150 ML BAG IVPB SCH (12:07)
[2017-09-01 13:53] LABS: Hematocrit 40.3 % (35.3-44.9); Hemoglobin 12.6 g/dL (11.5-15.4); Mean Corpuscular HGB Conc 31.3 g/dL (31.6-35.5); Mean Corpuscular Hemoglobin 27.2 pg (28.0-33.3); Mean Platelet Volume 9.7 fL (9.4-12.4); Platelet Count 275 K/mcL (140-400); Red Blood Count 4.63 M/mcL (3.82-4.97); Red Cell Distribution Width 14.5 % (11.5-14.5)
[2017-09-01 14:01] LABS: BUN/Creatinine Ratio 38 (6-26); Blood Urea Nitrogen 29 mg/dL (8-23); Calcium 9.8 mg/dL (8.6-10.3); Carbon Dioxide 27 mEq/L (23-29); Chloride 101 mEq/L (98-107); Glucose 200 mg/dL (70-105); Osmolality,Calculated 299 (280-300); Potassium 4.2 mEq/L (3.5-5.1); Sodium 139 mEq/L (136-145); eGFR For African Americans > 60 (> 60); eGFR For Non-African Americans > 60 (> 60)
[2017-09-01] MEDS: Cefepime HCl 1,000 MG in Water for inj. (sterile) 10 ML IVP SCH (14:33)
--- NOTE | 2017-09-01 15:25 | Electrocardiograph Report ---
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
[2017-09-01] MEDS: Ipratropium/Albuterol Neb 3 ML IH PRN (21:08)
[2017-09-01] MEDS: Latanoprost 2.5 ML BOTTLE BOTH EYES SCH (21:13)
[2017-09-02] MEDS: Cefepime HCl 1,000 MG in Water for inj. (sterile) 10 ML IVP SCH ×3 (02:10→23:26)
[2017-09-02] MEDS: Ipratropium/Albuterol Neb 3 ML IH SCH ×4 (04:26→22:54)
[2017-09-02 05:50] LABS: Hematocrit 39.6 % (35.3-44.9); Hemoglobin 12.6 g/dL (11.5-15.4); Mean Corpuscular HGB Conc 31.8 g/dL (31.6-35.5); Mean Corpuscular Hemoglobin 27.5 pg (28.0-33.3); Mean Corpuscular Volume 86.3 fL (83.0-100.0); Platelet Count 287 K/mcL (140-400); Red Blood Count 4.59 M/mcL (3.82-4.97); Red Cell Distribution Width 14.5 % (11.5-14.5)
[2017-09-02 06:10] LABS: BUN/Creatinine Ratio 46 (6-26); Blood Urea Nitrogen 32 mg/dL (8-23); Calcium 9.6 mg/dL (8.6-10.3); Carbon Dioxide 28 mEq/L (23-29); Chloride 101 mEq/L (98-107); Glucose 213 mg/dL (70-105); Osmolality,Calculated 307 (280-300); Potassium 3.9 mEq/L (3.5-5.1); Sodium 142 mEq/L (136-145); eGFR For African Americans > 60 (> 60); eGFR For Non-African Americans > 60 (> 60)
[2017-09-02] MEDS: *HR* Enoxaparin 40 MG/0.4 ML SYRINGE SQ SCH (06:13)
[2017-09-02] MEDS: Insulin LISPRO 300 UNITS/3 ML VIAL SQ SCH ×4 (09:04→20:29)
[2017-09-02] MEDS: MethylPREDNISolone 40 MG/ML VIAL IVP SCH ×3 (09:04→20:28)
[2017-09-02] MEDS: Furosemide 20 MG TABLET PO SCH (09:04)
[2017-09-02] MEDS: Aspirin Enteric Coated 81 MG Tablet PO SCH (09:04)
[2017-09-02] MEDS: Budesonide/Formoterol 160/4.5 MDI IH SCH ×2 (10:11→22:54)
--- NOTE | 2017-09-02 11:14 | Electrocardiograph Report ---
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
[2017-09-02] MEDS: Levofloxacin 750 MG/150 ML 750 MG/150 ML BAG IVPB SCH (11:53)
[2017-09-02] MEDS: Ipratropium/Albuterol Neb 3 ML IH PRN (13:37)
[2017-09-02] MEDS ORDERED: *HR* LORazepam 2 MG/ML VIAL IVP ONE (14:34)
--- NOTE | 2017-09-02 16:43 | Internal Med Progress Note ---
Date of Encounter: 09/02/17 Time of Encounter: 10:50 - Assessment and plan (1) Acute and chronic respiratory failure (fmsgj-ex-jrykmzy) Current Visit: No Status: Acute Assessment and plan: Acute on chronic hypoxic respiratory failure secondary to acute exacerbation of COPD. Patient has been treated for possible HCAP since admission to hospital on 07/30/17 at [facility] for hysterectomy. She reports increased overall use of oxygen, as well as increased from 2-1/2-3 L. She reports increased inhaler use since that time. Worse for the last 8 days. Reports productive cough with thick white sputum. Patient was being treated with azithromycin which was discontinued at day 2. She has been since been started on cefepime and Levaquin, day 2 today. Continue Solu-Medrol IV, DuoNeb's, oxygen as needed to maintain sats greater than 92%. Blood cultures are negative 2. She has mild leukocytosis that is improving. Chest x-ray was negative for any acute findings. Chest CT showed no specific evidence of pneumonia and no acute pulmonary abnormality. There are multiple noncalcified lung nodules that are stable as far back as 2011. Also showed coronary artery disease. Continue antibiotics Continue Solu-Medrol, duo nebs, oxygen Continue to monitor patient's condition Continue telemetry, continue pulse ox with vitals. Increased dose of Mucinex 1200 mg by mouth twice a day Qualifiers: Respiratory failure complication: hypoxia Qualified Code(s): J96.21 - Acute and chronic respiratory failure with hypoxia (2) Acute exacerbation of chronic obstructive airways disease Current Visit: Yes Status: Chronic Assessment and plan: Plan as above. (3) Cough Current Visit: Yes Status: Acute Assessment and plan: Increased cough with acute exacerbation of COPD. Increase Mucinex dose. Plan as above. (4) DVT prophylaxis Current Visit: Yes Status: Acute Assessment and plan: Lovenox subcutaneous daily. Patient is ambulatory in the room. (5) Essential hypertension Current Visit: Yes Status: Chronic Assessment and plan: Chronic. Continue to monitor. Continue home medications. (6) Former heavy tobacco smoker Current Visit: Yes Status: Chronic Assessment and plan: Patient reports that she quit smoking approximately 20 years ago. (7) GERD (gastroesophageal reflux disease) Current Visit: Yes Status: Chronic Assessment and plan: Chronic. Continue home medications. Denies increased symptoms. Qualifiers: Esophagitis presence: without esophagitis Qualified Code(s): K21.9 - Gastro -esophageal reflux disease without esophagitis (8) Hyperlipidemia Current Visit: Yes Status: Chronic Assessment and plan: Chronic. Continue Lipitor. Qualifiers: Hyperlipidemia type: mixed hyperlipidemia Qualified Code(s): E78.2 - Mixed hyperlipidemia - Time Spent With Patient less than 15 minutes - Subjective Interval history: Patient was seen and assessed the bedside at 10:50 AM. Patient was standing at bedside. She states that she was unable to sit. She has audible wheezing and conversational dyspnea noted. Lungs with wheezing in all [place] posteriorly. Patient was agreeable to not being discharged today. We discussed the plan of care that included continuing nebulizer treatments, antibiotics, steroids and DuoNeb's. Patient states that she normally wears 2-1/2 L at home, is wearing 3 L here. She denies subjective fevers at home. She reports a recent history of on July 30 showed a same day surgery at [facility], hysterectomy by Dr. Duke. She reports after she was extubated she has been short of breath since. She also reports increased O2 use since surgery. Productive cough with thick white sputum, normally takes Mucinex at home and is not effective at this time. She reports increased shortness of breath for last 8 days. She is a patient of Dr. Luis Fernando bell per her report. Patient also reports regular use of incentive spirometry since admission. She denies chest pain or dizziness. No headache or abdominal pain. No nausea vomiting or diarrhea. - Constitutional Vitals: Temp Pulse Resp BP Pulse Ox 97.9 F 118 15 122/79 93 09/02/17 15:49 09/02/17 15:49 09/02/17 16:05 09/02/17 15:49 09/02/17 16:05 General appearance: Present: cooperative, A&O X 3, pleasant, severe distress, answers questions appropriately - Head Head exam: Present: atraumatic, normal inspection, normocephalic - Eye Eye exam: Present: normal appearance, conjuntiva pink, sclera anicteric - Neck Neck exam general surgery: Present: normal inspection, supple, trachea midline. Absent: lymphadenopathy, tenderness - Respiratory Respiratory exam: Present: respiratory distress, wheezes. Absent: accessory muscle use, chest wall tenderness, CTAB, rales, rhonchi - Expanded Respiratory Exam Location: wheezes: Left, Right, Lower - Cardiovascular Cardiovascular exam: Present: RRR, +S1, +S2. Absent: bradycardia, diastolic murmur, gallop, irregular rhythm, rubs, systolic murmur, tachycardia - GI/Abdominal GI/Abdominal exam: Present: normal bowel sounds, soft. Absent: distended, hepatomegaly, tenderness - Extremities Exam Extremities exam: Present: normal capillary refill, normal inspection, warm, radial pulses palpable and symmetrical. Absent: calf tenderness, cyanotic, pedal edema, tenderness - Neurological Exam Neurological exam: Present: alert, oriented X3, no focal deficits. Absent: altered, facial droop, speech deficit - Skin Skin exam: Present: dry, intact, normal color, warm. Absent: rash Internal Medicine: Result - Labs CBC & Chem 7: 09/02/17 04:10 09/02/17 04:10 Labs: Short CBC 09/02/17 Range/Units 04:10 WBC 13.3 H (4.3-11.1) K/mcL Hgb 12.6 (11.5-15.4) g/dL Hct 39.6 (35.3-44.9) % Plt Count 287 (140-400) K/mcL BMP 09/02/17 04:10 Sodium 142 Potassium 3.9 Chloride 101 Carbon Dioxide 28 BUN 32 H Creatinine 0.70 Glucose 213 H Calcium 9.6 - ABG Interpretation ABG results: PT/INR, D-dimer PT 9.8 Seconds (9.4-12.1) 08/30/17 03:56 - Impressions Impressions Chest CT 09/01/17 11:00 IMPRESSION: 1. No acute pulmonary abnormality. Specifically, no evidence of pneumonia. 2. Multiple noncalcified lung nodules, largest of which measures 7 mm in the right lower lobe, stable as far back as 2011, and therefore considered benign. 3. Coronary artery disease. D/ / 09/01/2017 11:38:15 Cain Varner MD / Nicolle Tena Interpreting Provider: Cain Varner MD Consult Discharge Plan - Plan Referrals: Ray Garcia MD [Primary Care Provider] - 09/11/17 10:15 am
[2017-09-02] MEDS: Benzonatate 100 MG CAPSULE PO PRN (20:29)
[2017-09-02] MEDS: Latanoprost 2.5 ML BOTTLE BOTH EYES SCH (20:30)
[2017-09-02] MEDS ORDERED: Nitroglycerin 0.4 MG TAB.SUBL SL PRN (22:26)
[2017-09-03] MEDS: Ipratropium/Albuterol Neb 3 ML IH SCH ×4 (04:31→22:28)
[2017-09-03] MEDS: *HR* Enoxaparin 40 MG/0.4 ML SYRINGE SQ SCH (05:46)
[2017-09-03] MEDS: Aspirin Enteric Coated 81 MG Tablet PO SCH (09:18)
[2017-09-03] MEDS: Insulin LISPRO 300 UNITS/3 ML VIAL SQ SCH ×4 (09:18→21:10)
[2017-09-03] MEDS: Furosemide 20 MG TABLET PO SCH (09:19)
[2017-09-03] MEDS: MethylPREDNISolone 40 MG/ML VIAL IVP SCH ×3 (09:20→21:09)
[2017-09-03 10:33] LABS: Basophils % 0.2 %; Hematocrit 40.4 % (35.3-44.9); Hemoglobin 12.6 g/dL (11.5-15.4); Immature Granulocytes % 1.6 % (0-4); Lymphocytes # 1.2 K/mcL (0.6-4.6); Lymphocytes % 10.1 %; Mean Corpuscular HGB Conc 31.2 g/dL (31.6-35.5); Mean Corpuscular Hemoglobin 26.9 pg (28.0-33.3); Mean Corpuscular Volume 86.3 fL (83.0-100.0); Mean Platelet Volume 9.5 fL (9.4-12.4); Monocytes # 0.6 K/mcL (0.0-1.3); Monocytes % 4.9 %; Neutrophils # 9.4 K/mcL (1.6-8.9); Platelet Count 273 K/mcL (140-400); Red Blood Count 4.68 M/mcL (3.82-4.97); Red Cell Distribution Width 14.5 % (11.5-14.5); Segmented Neutrophils % 83.2 %
[2017-09-03 11:05] LABS: BUN/Creatinine Ratio 40 (6-26); Blood Urea Nitrogen 29 mg/dL (8-23); Calcium 9.4 mg/dL (8.6-10.3); Carbon Dioxide 28 mEq/L (23-29); Chloride 102 mEq/L (98-107); Glucose 309 mg/dL (70-105); Osmolality,Calculated 306 (280-300); Potassium 3.8 mEq/L (3.5-5.1); Sodium 139 mEq/L (136-145); eGFR For African Americans > 60 (> 60); eGFR For Non-African Americans > 60 (> 60)
[2017-09-03] MEDS: Budesonide/Formoterol 160/4.5 MDI IH SCH ×2 (11:05→22:28)
[2017-09-03] MEDS: Levofloxacin 750 MG/150 ML 750 MG/150 ML BAG IVPB SCH (11:13)
[2017-09-03] MEDS ORDERED: *HR* LORazepam 2 MG/ML VIAL IVP ONE (11:19)
--- NOTE | 2017-09-03 11:40 | Electrocardiograph Report ---
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
[2017-09-03] MEDS: Cefepime HCl 1,000 MG in Water for inj. (sterile) 10 ML IVP SCH ×2 (12:42→23:35)
[2017-09-03] MEDS ORDERED: 0.9 % Sodium Chloride 1,000 ML IVC SCH (18:00)
--- NOTE | 2017-09-03 18:02 | Internal Med Progress Note ---
Date of Encounter: 09/03/17 Time of Encounter: 10:15 - Assessment and plan (1) Acute and chronic respiratory failure (iblgm-px-kymtoyt) Current Visit: No Status: Acute Assessment and plan: Acute on chronic hypoxic respiratory failure secondary to acute exacerbation of COPD. Continue Solu-Medrol IV, DuoNeb's, oxygen as needed to maintain sats greater than 92%. Blood cultures are negative 2. Leukocytosis continues to improve. Chest x- ray was negative for any acute findings. Chest CT showed no specific evidence of pneumonia and no acute pulmonary abnormality. There are multiple noncalcified lung nodules that are stable as far back as 2011. Also showed coronary artery disease. Patient has refused BiPAP. Continue antibiotics cefepime and Levaquin Continue Solu-Medrol, duo nebs, oxygen Continue to monitor patient's condition Continue telemetry, continue pulse ox with vitals. Increased dose of Mucinex 1200 mg by mouth twice a day Qualifiers: Respiratory failure complication: hypoxia Qualified Code(s): J96.21 - Acute and chronic respiratory failure with hypoxia (2) Acute exacerbation of chronic obstructive airways disease Current Visit: Yes Status: Chronic Assessment and plan: Plan as above. (3) Cough Current Visit: Yes Status: Acute Assessment and plan: Increased cough with acute exacerbation of COPD. Patient reports minimal relief with increased dose of Mucinex. States the cough is keeping her up overnight. Increase Mucinex dose. Plan as above. Phenergan with codeine cough syrup tonight at bedtime. (4) DVT prophylaxis Current Visit: Yes Status: Acute Assessment and plan: Lovenox subcutaneous twice daily. Patient is ambulatory in the room. (5) Essential hypertension Current Visit: Yes Status: Chronic Assessment and plan: Chronic. Continue to monitor. Continue home medications. (6) Former heavy tobacco smoker Current Visit: Yes Status: Chronic Assessment and plan: Patient reports that she quit smoking approximately 20 years ago. (7) GERD (gastroesophageal reflux disease) Current Visit: Yes Status: Chronic Assessment and plan: Chronic. Continue home medications. Denies symptoms. Qualifiers: Esophagitis presence: without esophagitis Qualified Code(s): K21.9 - Gastro -esophageal reflux disease without esophagitis (8) Hyperlipidemia Current Visit: Yes Status: Chronic Assessment and plan: Chronic. Continue home medication. Qualifiers: Hyperlipidemia type: mixed hyperlipidemia Qualified Code(s): E78.2 - Mixed hyperlipidemia - Time Spent With Patient less than 15 minutes - Subjective Interval history: Patient was seen and assessed the bedside at 10:15 AM. Patient appears to be improved today. Breathing treatment is in progress during assessment. Lungs with wheezing in all [place] posteriorly, improved today. She denies chest pain or dizziness. No headache or abdominal pain. No nausea vomiting or diarrhea. - Constitutional Vitals: Temp Pulse Resp BP Pulse Ox 98.0 F 115 16 157/67 92 09/03/17 16:54 09/03/17 16:54 09/03/17 16:54 09/03/17 16:54 09/03/17 16:54 General appearance: Present: cooperative, mild distress, A&O X 3, pleasant, severe distress, answers questions appropriately - Head Head exam: Present: atraumatic, normal inspection, normocephalic - Eye Eye exam: Present: normal appearance, conjuntiva pink, sclera anicteric - Neck Neck exam general surgery: Present: supple, trachea midline. Absent: lymphadenopathy, tenderness - Respiratory Respiratory exam: Present: CTAB, respiratory distress, wheezes. Absent: accessory muscle use, chest wall tenderness, rales, rhonchi Additional comments: Mild respiratory distress. - Cardiovascular Cardiovascular exam: Present: RRR, +S1, +S2. Absent: diastolic murmur, gallop, rubs, systolic murmur - GI/Abdominal GI/Abdominal exam: Present: normal bowel sounds, soft, no peritoneal signs. Absent: distended, hepatomegaly, tenderness - Extremities Exam Extremities exam: Present: normal capillary refill, warm, radial pulses palpable and symmetrical. Absent: calf tenderness, cyanotic, pedal edema - Neurological Exam Neurological exam: Present: alert, oriented X3, no focal deficits. Absent: facial droop, speech deficit - Skin Skin exam: Present: dry, intact, normal color, warm. Absent: rash Internal Medicine: Result - Labs CBC & Chem 7: 09/03/17 10:18 09/03/17 10:18 Labs: Short CBC 09/03/17 Range/Units 10:18 WBC 11.3 H (4.3-11.1) K/mcL Hgb 12.6 (11.5-15.4) g/dL Hct 40.4 (35.3-44.9) % Plt Count 273 (140-400) K/mcL Neutrophils # 9.4 H (1.6-8.9) K/mcL BMP 09/03/17 10:18 Sodium 139 Potassium 3.8 Chloride 102 Carbon Dioxide 28 BUN 29 H Creatinine 0.72 Glucose 309 H Calcium 9.4 - ABG Interpretation ABG results: PT/INR, D-dimer PT 9.8 Seconds (9.4-12.1) 08/30/17 03:56 Consult Discharge Plan - Plan Referrals: Ray Garcia MD [Primary Care Provider] - 09/11/17 10:15 am
[2017-09-03] MEDS: 0.9 % Sodium Chloride 1,000 ML IVC SCH (18:35)
[2017-09-03] MEDS: Latanoprost 2.5 ML BOTTLE BOTH EYES SCH (21:09)
[2017-09-04] MEDS: Ipratropium/Albuterol Neb 3 ML IH SCH ×4 (03:54→22:38)
[2017-09-04 04:17] LABS: Basophils % 0.3 %; Hematocrit 38.8 % (35.3-44.9); Hemoglobin 11.9 g/dL (11.5-15.4); Immature Granulocytes % 2.4 % (0-4); Lymphocytes # 0.9 K/mcL (0.6-4.6); Lymphocytes % 7.8 %; Mean Corpuscular HGB Conc 30.7 g/dL (31.6-35.5); Mean Corpuscular Hemoglobin 26.4 pg (28.0-33.3); Mean Corpuscular Volume 86.2 fL (83.0-100.0); Mean Platelet Volume 9.7 fL (9.4-12.4); Monocytes # 0.4 K/mcL (0.0-1.3); Neutrophils # 10.2 K/mcL (1.6-8.9); Nucleated Red Blood Cells 0.3 /100 WBC (0); Platelet Count 259 K/mcL (140-400); Red Cell Distribution Width 14.2 % (11.5-14.5); Segmented Neutrophils % 86.5 %
[2017-09-04 04:48] LABS: BUN/Creatinine Ratio 40 (6-26); Blood Urea Nitrogen 27 mg/dL (8-23); Carbon Dioxide 28 mEq/L (23-29); Chloride 103 mEq/L (98-107); Glucose 235 mg/dL (70-105); Osmolality,Calculated 299 (280-300); Sodium 138 mEq/L (136-145); eGFR For African Americans > 60 (> 60); eGFR For Non-African Americans > 60 (> 60)
[2017-09-04] MEDS: *HR* Enoxaparin 40 MG/0.4 ML SYRINGE SQ SCH (05:42)
[2017-09-04] MEDS: 0.9 % Sodium Chloride 1,000 ML IVC SCH (06:38)
[2017-09-04] MEDS: Insulin LISPRO 300 UNITS/3 ML VIAL SQ SCH ×4 (07:49→21:35)
[2017-09-04] MEDS: MethylPREDNISolone 40 MG/ML VIAL IVP SCH ×3 (10:28→21:34)
[2017-09-04] MEDS: Levofloxacin 750 MG/150 ML 750 MG/150 ML BAG IVPB SCH (10:28)
[2017-09-04] MEDS: Aspirin Enteric Coated 81 MG Tablet PO SCH (10:28)
[2017-09-04] MEDS: Furosemide 20 MG TABLET PO SCH (10:28)
[2017-09-04] MEDS: Budesonide/Formoterol 160/4.5 MDI IH SCH ×2 (11:33→22:38)
--- NOTE | 2017-09-04 17:04 | Discharge Summary ---
Date of Encounter: 09/04/17 Time of Encounter: 10:15 - Discharge Diagnosis (1) Acute and chronic respiratory failure ([id number]) Priority: Secondary Status: Acute Comments: Acute on chronic hypoxic respiratory failure secondary to acute exacerbation of COPD. I have Deescalated IV steroids to by mouth., DuoNeb's, oxygen as needed to maintain sats greater than 92%. Blood cultures are negative 2. Leukocytosis continues to improve. Chest x- ray was negative for any acute findings. Chest CT showed no specific evidence of pneumonia and no acute pulmonary abnormality. There are multiple noncalcified lung nodules that are stable as far back as 2011. Also showed coronary artery disease. Patient has refused BiPAP. Continue Levaquin by mouth at discharge Continue prednisone taper. Increased dose of Mucinex 1200 mg by mouth twice a day Qualifiers: Respiratory failure complication: hypoxia Qualified Code(s): J96.21 - Acute and chronic respiratory failure with hypoxia (2) Acute exacerbation of chronic obstructive airways disease Priority: Secondary Status: Chronic Comments: Plan as above. (3) Cough Priority: Secondary Status: Acute Comments: Plan as above (4) DVT prophylaxis Priority: Secondary Status: Acute Comments: Lovenox subcutaneous daily. Patient is ambulatory. (5) Essential hypertension Priority: Secondary Status: Chronic Comments: Chronic. Continue home medication. (6) Former heavy tobacco smoker Priority: Secondary Status: Chronic Comments: Patient reports smoking cessation 20 years ago. (7) GERD (gastroesophageal reflux disease) Priority: Secondary Status: Chronic Comments: Patient asymptomatic. Continue home medications. Qualifiers: Esophagitis presence: without esophagitis Qualified Code(s): K21.9 - Gastro -esophageal reflux disease without esophagitis (8) Hyperlipidemia Priority: Secondary Status: Chronic Comments: Chronic. Continue home medication. Qualifiers: Hyperlipidemia type: mixed hyperlipidemia Qualified Code(s): E78.2 - Mixed hyperlipidemia - Discharge Medications Prescriptions: levoFLOXacin [Levaquin] 750 mg PO DAILY #4 tablet predniSONE [PredniSONE] 10 mg PO DAILY #31 tablet Home Medications: Budesonide/Formoterol 160/4.5 [Symbicort] 2 puff IH BID 06/22/15 [History] Roflumilast [Daliresp] 500 mcg PO QAM 06/22/15 [History] Albuterol Sulfate [Proair Hfa] 2 puff IH Q4H PRN 07/14/16 [History] Atorvastatin Calcium [Lipitor] 80 mg PO QAM 07/14/16 [History] Sertraline [Zoloft] 50 mg PO DAILY 07/15/16 [History] Metoprolol [Lopressor] 12.5 mg PO BIDWM 30 Days tablet 07/17/16 [Rx] Aspirin Enteric Coated [Aspirin EC] 81 mg PO DAILY 10/22/16 [History] Cyanocobalamin (Vitamin B-12) [Vitamin B-12] 1,000 mcg PO DAILY 10/22/16 [ History] Cyclosporine [Restasis] 1 each OP BID 10/22/16 [History] Ferrous Sulfate 325 mg PO DAILY 10/22/16 [History] Furosemide [Lasix] 20 mg PO DAILY 10/22/16 [History] Guaifenesin [Mucinex] 600 mg PO Q12H PRN 10/22/16 [History] Omeprazole [PriLOSEC] 20 mg PO DAILY 10/22/16 [History] Travoprost [Travatan Z] 1 drop OP QPM 10/22/16 [History] metFORMIN [Glucophage] 500 mg PO BIDWM #60 tablet 10/27/16 [Rx] Acetylcysteine [B-Ejyaeg-g-Cysteine] 600 mg PO BID 04/01/17 [History] Cyclobenzaprine HCl 10 mg PO HS 04/01/17 [History] Ergocalciferol (VITAMIN D2) [Vitamin D2] 50,000 unit PO QWEEK 04/01/17 [History] Umeclidinium [place] [Incruse Ellipta] 1 puff IH DAILY 04/01/17 [History] Potassium Chloride 10 meq PO DAILY #30 tab.er.prt 04/07/17 [Rx] Latanoprost [Xalatan] 1 drop OP HS 07/08/17 [History] Nitroglycerin 0.4 mg PO Q5M PRN 07/08/17 [History] Ezetimibe [Zetia] 10 mg PO DAILY 09/01/17 [History] levoFLOXacin [Levaquin] 750 mg PO DAILY #4 tablet 09/04/17 [Rx] predniSONE [PredniSONE] 10 mg PO DAILY #31 tablet 09/04/17 [Rx] Allergies/Adverse Reactions: 3 Allergy/AdvReac Type Severity Reaction Status Date / Time acetaminophen [From Vicodin] AdvReac Headache Verified 07/15/16 13:34 hydrocodone [From Vicodin] AdvReac Headache Verified 07/15/16 13:34 methylprednisolone AdvReac Itching Verified 04/01/17 09:19 [From Solu-Medrol] Procedures/tests Complete & Pending: Procedures Performed prior 72 hours Category Date Time Status ECG 12 lead ECG [ECG] Routine Y 09/02/17 14:21 Completed EKG [ECG 12 lead ECG] [ECG] Stat Y 09/01/17 22:01 Completed EKG [ECG 12 lead ECG] [ECG] Stat Y 09/04/17 11:34 Completed Date of admission: 08/30/17 05:14 Primary care physician: Ray Garcia Consults: 09/04/17 13:46 Consult to Invasive Line Access Team [CONS] Routine Reason for Consult: limited access Line Type: EPIV Discharging clinician: Daija Ramirez Anticipated date of discharge: 09/04/17 - Patient Status Disposition: Home, Self-Care Condition: Good Functional capacity at discharge: independent ambulation Overall status at discharge: patient is progressing back to baseline - Discharge Instructions Follow Up With: Ray Garcia MD [Primary Care Provider] - 09/11/17 10:15 am Additional Instructions: Follow-up with primary care in the next 7-10 days. Take to her medications as directed. Your prescription for antibiotics and steroids are at your pharmacy. Resume normal home medications and diet. Return to normal activity as tolerated. Return to the emergency room as needed for any other problems or concerns, or if your symptoms return or worsen. - Diet and Activity Activity: increase activity as tolerated Diet: advance to your usual diet Hospital course: Ms. Leon is a 61 year old female with history of COPD he was admitted for COPD exacerbation. She was treated with IV antibiotics, IV steroids, oxygen, and Mucinex. Patient progressively improved over time. She still remains slightly wheezy, wears home O2. She will be sent home with 4 days' worth of by mouth Levaquin 750 mg as well as a steroid taper. Patient has mild leukocytosis that has also improved since arrival, leukocytosis most likely remains due to steroids. She denies need for any other medications at home. Follow-up with primary care. Patient is stable and appropriate for discharge. - Time Spent with Patient Total time spent providing and/or coordinating discharge services: Less than 30 minutes - Constitutional Vitals: Temp Pulse Resp BP Pulse Ox 99 F 110 16 135/81 95 09/04/17 15:53 09/04/17 15:53 09/04/17 15:53 09/04/17 15:53 09/04/17 15:53 General appearance: Present: cooperative, mild distress, A&O X 3, pleasant, severe distress, answers questions appropriately - Head Head exam: Present: atraumatic, normal inspection, normocephalic - Eye Eye exam: Present: conjuntiva pink, sclera anicteric Pupils: Present: PERRL - Neck Neck exam general surgery: Present: supple, trachea midline. Absent: lymphadenopathy, tenderness - Respiratory Respiratory exam: Present: CTAB, wheezes. Absent: accessory muscle use, prolonged expiratory phase, rales, respiratory distress, rhonchi - Cardiovascular Cardiovascular exam: Present: RRR, +S1, +S2. Absent: bradycardia, diastolic murmur, gallop, rubs, systolic murmur, tachycardia - GI/Abdominal GI/Abdominal exam: Present: normal bowel sounds, soft. Absent: distended, hepatomegaly, tenderness - Extremities Exam Extremities exam: Present: normal capillary refill, normal inspection, warm, radial pulses palpable and symmetrical. Absent: calf tenderness, cyanotic, pedal edema - Neurological Exam Neurological exam: Present: alert, oriented X3, no focal deficits. Absent: altered, facial droop, speech deficit - Skin Skin exam: Present: dry, intact, normal color, warm. Absent: rash
[2017-09-04] MEDS: Cefepime HCl 1,000 MG in Water for inj. (sterile) 10 ML IVP SCH (17:32)
[2017-09-04] MEDS: Latanoprost 2.5 ML BOTTLE BOTH EYES SCH (21:35)
[2017-09-05] MEDS: Cefepime HCl 1,000 MG in Water for inj. (sterile) 10 ML IVP SCH (00:18)
[2017-09-05] MEDS: Ipratropium/Albuterol Neb 3 ML IH SCH ×2 (04:33→09:45)
[2017-09-05] MEDS: *HR* Enoxaparin 40 MG/0.4 ML SYRINGE SQ SCH (06:03)
[2017-09-05 07:30] VITALS: BP 127/69
[2017-09-05] MEDS: Furosemide 20 MG TABLET PO SCH (08:42)
[2017-09-05] MEDS: Aspirin Enteric Coated 81 MG Tablet PO SCH (08:43)
[2017-09-05] MEDS: MethylPREDNISolone 40 MG/ML VIAL IVP SCH (08:43)
[2017-09-05] MEDS: Insulin LISPRO 300 UNITS/3 ML VIAL SQ SCH (09:01)
--- NOTE | 2017-09-05 09:45 | Internal Med Progress Note ---
Date of Encounter: 09/05/17 Time of Encounter: 09:00 - Assessment and plan (1) Acute and chronic respiratory failure ([id number]) Current Visit: No Status: Acute Assessment and plan: Acute on chronic hypoxic respiratory failure secondary to acute exacerbation of COPD. Prednisone taper, DuoNeb's, oxygen as needed to maintain sats greater than 92%. Tessalon pearls for cough. Patient has Mucinex at home. She also has home O2. Blood cultures are negative 2. Leukocytosis remains likely due to steroids. Chest x-ray was negative for any acute findings. Chest CT showed no specific evidence of pneumonia and no acute pulmonary abnormality. There are multiple noncalcified lung nodules that are stable as far back as 2011. Also showed coronary artery disease. Patient has refused BiPAP beginning of visit. Continue Levaquin by mouth Continue prednisone taper Qualifiers: Respiratory failure complication: hypoxia Qualified Code(s): J96.21 - Acute and chronic respiratory failure with hypoxia (2) Acute exacerbation of chronic obstructive airways disease Current Visit: Yes Status: Chronic Assessment and plan: Plan as above. Prednisone taper, by mouth Levaquin at home, Tessalon [place]. Patient continues to slowly improve. (3) Cough Current Visit: Yes Status: Acute Assessment and plan: Increased cough with acute exacerbation of COPD. Intermittently productive with thick white sputum. Plan as above (4) DVT prophylaxis Current Visit: Yes Status: Acute Assessment and plan: Lovenox subcutaneous twice daily. Patient was ambulatory in the room. (5) Essential hypertension Current Visit: Yes Status: Chronic Assessment and plan: Chronic. Continue home medications. (6) Former heavy tobacco smoker Current Visit: Yes Status: Chronic Assessment and plan: Patient reports that she quit smoking approximately 20 years ago. (7) GERD (gastroesophageal reflux disease) Current Visit: Yes Status: Chronic Assessment and plan: Chronic. Continue home medications. Qualifiers: Esophagitis presence: without esophagitis Qualified Code(s): K21.9 - Gastro -esophageal reflux disease without esophagitis (8) Hyperlipidemia Current Visit: Yes Status: Chronic Assessment and plan: Chronic. Continue home medications. Qualifiers: Hyperlipidemia type: mixed hyperlipidemia Qualified Code(s): E78.2 - Mixed hyperlipidemia - Time Spent With Patient less than 15 minutes - Subjective Interval history: Patient was seen and assessed the bedside at 0900 AM. Patient appears to be improved today and states that she is ready to go home. Lungs with wheezing in all lawson posteriorly, continues to improve. She denies chest pain or dizziness. No headache or abdominal pain. No nausea vomiting or diarrhea. - Constitutional Vitals: Temp Pulse Resp BP Pulse Ox 98.0 F 88 16 127/69 94 09/05/17 07:28 09/05/17 07:28 09/05/17 07:28 09/05/17 07:28 09/05/17 08:51 General appearance: Present: cooperative, mild distress, A&O X 3, pleasant, severe distress, answers questions appropriately - Head Head exam: Present: atraumatic, normal inspection, normocephalic - Eye Eye exam: Present: normal appearance, conjuntiva pink, sclera anicteric - Neck Neck exam general surgery: Present: supple, trachea midline. Absent: lymphadenopathy, tenderness - Respiratory Respiratory exam: Present: wheezes. Absent: accessory muscle use, chest wall tenderness, CTAB, rales, respiratory distress, rhonchi Additional comments: Expiratory wheezing heard posteriorly lung lawson. - Cardiovascular Cardiovascular exam: Present: RRR, +S1, +S2. Absent: diastolic murmur, gallop, rubs, systolic murmur - GI/Abdominal GI/Abdominal exam: Present: normal bowel sounds, soft. Absent: distended, hepatomegaly, tenderness - Extremities Exam Extremities exam: Present: normal capillary refill, warm, radial pulses palpable and symmetrical. Absent: calf tenderness, cyanotic, pedal edema, tenderness - Neurological Exam Neurological exam: Present: alert, oriented X3, no focal deficits. Absent: facial droop, speech deficit - Skin Skin exam: Present: dry, intact, normal color, warm. Absent: rash Internal Medicine: Result - Labs CBC & Chem 7: 09/04/17 03:33 09/04/17 03:33 Labs: Cardiac Enzymes 09/04/17 Range/Units 12:32 Troponin I < 0.03 (< 0.04) ng/mL - ABG Interpretation ABG results: PT/INR, D-dimer PT 9.8 Seconds (9.4-12.1) 08/30/17 03:56 Consult Discharge Plan - Plan Additional Instructions: Follow-up with primary care in the next 7-10 days. Take to her medications as directed. Your prescription for antibiotics and steroids are at your pharmacy. Resume normal home medications and diet. Return to normal activity as tolerated. Return to the emergency room as needed for any other problems or concerns, or if your symptoms return or worsen. Referrals: Ray Garcia MD [Primary Care Provider] - 09/11/17 10:15 am Prescriptions: Benzonatate [Tessalon] 200 mg PO TID PRN #60 capsule PRN Reason: Cough levoFLOXacin [Levaquin] 750 mg PO DAILY #4 tablet predniSONE [PredniSONE] 10 mg PO DAILY #31 tablet
[2017-09-05] MEDS: Budesonide/Formoterol 160/4.5 MDI IH SCH (09:46)
--- NOTE | 2017-09-06 09:28 | Electrocardiograph Report ---
[place] [id number] Test Date: 2017-09-04 Pat Name: Geri Leon Department: 113 Room: 3B24 Gender: F [employer] Professional: : [id number] Requested By: Daija Ramirez Order Number: [id number] Reading MD: Neno Fisher DO Measurements Intervals [place] Rate: 105 P: 74 DC: 114 QRS: 50 QRSD: 82 T: 66 QT: 307 QTc: 368 Interpretive Statements SINUS TACHYCARDIA Electronically Signed On 09-06-2017 9:27:28 EST by Neno Fisher DO
== END 2017-09-05 11:48 | disposition home or self-care (01) | DRG 190 ==
LOC: 2NENU 03:38 → EMEROO 03:38 → 2NENU 05:13 → 3BNU 09-02 02:41
PROVIDERS: ADMIT Internal Medicine Hematology & Oncology; ATTEND Internal Medicine

== ENCOUNTER 2017-09-22 19:28 | Inpatient (IN) ==
[2017-09-22] MEDS ORDERED: 0.9 % Sodium Chloride 1,000 ML IVC ONE (19:35)
[2017-09-22] MEDS ORDERED: Ipratropium/Albuterol Neb 3 ML IH ONE (19:35)
--- NOTE | 2017-09-22 19:39 | Emergency Department Note ---
Disposition Clinical Impression: COPD (chronic obstructive pulmonary disease) Qualifiers: COPD type: unspecified COPD Qualified Code(s): J44.9 - Chronic obstructive pulmonary disease, unspecified Disposition: Admitted As Inpatient Condition: Fair Time of Disposition: 20:07 SOB HPI - General Chief Complaint: ED Shortness of Breath/Dyspnea Stated Complaint: ROBER Time Seen by Provider: 09/22/17 19:34 Source: patient Mode of arrival: EMS Limitations: no limitations Nursing Notes Reviewed: Yes Vital Signs Reviewed: Yes - History of Present Illness 61-year-old female history of diabetes, hypertension, COPD. Presents for dyspnea. Patient notes worsening dyspnea over the past 24-48 hours acutely got worse today. Denies any fevers but does note a productive cough. Patient states that she is on home oxygen at 2 and half liters would have been having to increase to 3 L. Patient notes dyspneic with activities of daily living. Patient has been using a previous prescription of prednisone over the past couple days as well as been using her albuterol. Patient received 2 DuoNeb's as well as Solu-Medrol per EMS prior to arrival. Patient denies any chest pain. Reports rhinorrhea. Patient denies that he other systemic signs or symptoms. - Related Data Home Medications Medication Instructions Recorded Confirmed Budesonide/Formoterol 160/4.5 2 puff IH BID 06/22/15 09/22/17 [Symbicort] Roflumilast [Daliresp] 500 mcg PO QAM 06/22/15 09/22/17 Albuterol Sulfate [Proair Hfa] 2 puff IH Q4H PRN 07/14/16 09/22/17 Atorvastatin Calcium [Lipitor] 80 mg PO QAM 07/14/16 09/22/17 Sertraline [Zoloft] 50 mg PO DAILY 07/15/16 09/22/17 Aspirin Enteric Coated [Aspirin EC] 81 mg PO DAILY 10/22/16 09/22/17 Cyanocobalamin (Vitamin B-12) 1,000 mcg PO DAILY 10/22/16 09/22/17 [Vitamin B-12] Cyclosporine [Restasis] 1 each OP BID 10/22/16 09/22/17 Ferrous Sulfate 325 mg PO DAILY 10/22/16 09/22/17 Furosemide [Lasix] 20 mg PO DAILY 10/22/16 09/22/17 Guaifenesin [Mucinex] 600 mg PO Q12H PRN 10/22/16 09/22/17 Omeprazole [PriLOSEC] 20 mg PO DAILY 10/22/16 09/22/17 Travoprost [Travatan Z] 1 drop OP QPM 10/22/16 09/22/17 Acetylcysteine 600 mg PO BID 04/01/17 09/22/17 [X-Lfsuup-b-Cysteine] Cyclobenzaprine HCl 10 mg PO HS 04/01/17 09/22/17 Ergocalciferol (VITAMIN D2) 50,000 unit PO QWEEK 04/01/17 09/22/17 [Vitamin D2] Umeclidinium [place] [Incruse 1 puff IH DAILY 04/01/17 09/22/17 Ellipta] Latanoprost [Xalatan] 1 drop OP HS 07/08/17 09/22/17 Nitroglycerin 0.4 mg PO Q5M PRN 07/08/17 09/22/17 Ezetimibe [Zetia] 10 mg PO DAILY 09/01/17 09/22/17 Albuterol Neb [Proventil Neb] 2.5 mg IH TID 09/22/17 09/22/17 Metoprolol [Lopressor] 12.5 mg PO DAILY 09/22/17 09/22/17 Oxygen 2.5 l NS AD 09/22/17 09/22/17 Potassium Chloride 20 meq PO DAILY 09/22/17 09/22/17 Previous Rx's Medication Instructions Recorded metFORMIN [Glucophage] 500 mg PO BIDWM #60 tablet 10/27/16 Allergies Allergy/AdvReac Type Severity Reaction Status Date / Time acetaminophen [From Vicodin] AdvReac Headache Verified 07/15/16 13:34 hydrocodone [From Vicodin] AdvReac Headache Verified 07/15/16 13:34 methylprednisolone AdvReac Itching Verified 04/01/17 09:19 [From Solu-Medrol] All systems ED: reviewed and negative except as stated. Constitutional: Denies: fever Cardiovascular: Denies: chest pain Respiratory: Reports: cough, dyspnea, wheezes, sputum production Gastrointestinal: Denies: abdominal pain, nausea, vomiting Past Medical History - Past Medical History Source: patient Medical history: Reports: COPD, diabetes, GERD, glaucoma, hyperlipidemia, hypertension, other Surgical history: Reports: cataract, hysterectomy 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: Reports: anxiety, depression [employer]PER[employer] history: Reports: other - Social History Smoking Status: Former smoker Smokeless Tobacco Status: No Alcohol use: Reports: none Drug use: Reports: none Physical Exam - General Limitations: no limitations General appearance: alert, in no apparent distress - Head Head exam: atraumatic, normocephalic, normal inspection - Eye Eye exam: Present: normal appearance, PERRL, EOMI - ENT ENT exam: normal exam, mucous membranes moist - Neck Neck exam: Present: normal inspection, trachea midline - Chest Chest inspection: Present: normal inspection, symmetric chest wall rise - Respiratory Respiratory exam: Present: normal lung sounds bilaterally, wheezes (Diffuse inspiratory ex wheezes throughout), accessory muscle use (pursed lip breathing) , prolonged expiratory phase - Cardiovascular Cardiovascular exam: Present: normal rhythm, tachycardia. Absent: systolic murmur - Abdominal Exam Abdominal exam: Present: soft, Non-Tender - Extremities Exam Extremities exam: Present: normal inspection. Absent: pedal edema - Neurological Exam Neurological exam: Present: alert, oriented X3, CN II-XII intact - Skin Skin exam: Present: warm, dry, intact, normal color Course Course Narrative: Patient seen and examined. Patient does have an element of conversational dyspneic with pursed lip breathing. Patient's been having increased oxygen requirement. History of COPD. She will get additional nebs as well as basic lab work chest x-ray fluids and influenza swab giving her recent illness. Disposition likely admission. - Reevaluation(s) Reevaluation #1: Patient's breathing she was intermittently discontinued issues been having increasing cough. Patient chest x-ray shows no acute abnormalities however antibiotics will be ordered given the patient's increased work of breathing and history of COPD with productive sputum. Patient's influenza screen was negative. Time: 20:18 Vital Signs Temperature 98.3 F 09/22/17 19:29 Pulse Rate 131 09/22/17 19:29 Respiratory Rate 24 09/22/17 19:29 Blood Pressure 161/67 09/22/17 19:29 O2 Sat by Pulse Oximetry 93 09/22/17 19:29 Temperature 97.6 F 09/23/17 03:15 Pulse Rate 115 09/23/17 03:15 Respiratory Rate 16 09/23/17 04:26 Blood Pressure 138/77 09/23/17 03:15 O2 Sat by Pulse Oximetry 96 09/23/17 04:26 Oxygen Delivery Oxygen Delivery Nasal Cannula Shortness of Breath/Dyspnea - [facility] Narrative Medical decision making narrative: 61-year-old female patient for evaluation of increased work of breathing. Patient notes and Monts in the past 24-48 hours progressively gotten worse. Patient received nebs as well as steroids prior to arrival. Patient's been having increased oxygen requirement as well as using her nebs and steroids at home. Patient was tachypneic with increased work of breathing. Patient received subsequent nebs. Given the patient's work of breathing as well as dyspneic with her ADLs at home. Patient will be admitted to the hospital service for further respiratory support and monitoring. Patient's tachycardia and work of breathing secondary to her albuterol use low concerns for pulmonary embolism. - Lab Data Lab results reviewed: Yes I reviewed the patient's lab results. Result diagrams: 09/22/17 19:48 09/22/17 19:48 Lab Results 09/22/17 09/22/17 09/22/17 Range/Units 19:48 19:48 19:48 WBC 7.6 (4.3-11.1) K/mcL RBC 4.58 (3.82-4.97) M/mcL Hgb 12.2 (11.5-15.4) g/dL Hct 39.4 (35.3-44.9) % MCV 86.0 (83.0-100.0) fL MCH 26.6 L (28.0-33.3) pg MCHC 31.0 L (31.6-35.5) g/dL RDW 14.9 H (11.5-14.5) % Plt Count 291 (140-400) K/mcL MPV 9.2 L (9.4-12.4) fL Immature Gran % 0.9 (0-4) % Seg Neutrophils % 82.7 % Lymphocytes % 13.0 % Monocytes % 2.9 % Eosinophils % 0.4 % Basophils % 0.1 % Neutrophils # 6.3 (1.6-8.9) K/mcL Lymphocytes # 1.0 (0.6-4.6) K/mcL Monocytes # 0.2 (0.0-1.3) K/mcL Eosinophils # 0.0 (0.0-0.6) K/mcL Basophils # 0.0 (0.0-0.2) K/mcL VBG pH (7.32-7.42) pH Units VBG pCO2 (41-51) mmHg VBG pO2 (25-50) mmHg VBG HCO3 (21-27) mEq/L Sodium 138 (136-145) mEq/L Potassium 4.5 (3.5-5.1) mEq/L Chloride 103 (98-107) mEq/L Carbon Dioxide 25 (23-29) mEq/L BUN 15 (8-23) mg/dL Creatinine 0.64 (0.60-1.20) mg/dL Est GFR ( Amer) > 60 (> 60) Est GFR (Non-Af Amer) > 60 (> 60) BUN/Creatinine Ratio 23 (6-26) Glucose 201 H (70-105) mg/dL Calculated Osmolality 293 (280-300) Calcium 9.3 (8.6-10.3) mg/dL Troponin I < 0.03 (< 0.04) ng/mL B-Natriuretic Peptide (Less than 100) pg/mL 09/22/17 09/22/17 Range/Units 19:48 20:02 WBC (4.3-11.1) K/mcL RBC (3.82-4.97) M/mcL Hgb (11.5-15.4) g/dL Hct (35.3-44.9) % MCV (83.0-100.0) fL MCH (28.0-33.3) pg MCHC (31.6-35.5) g/dL RDW (11.5-14.5) % Plt Count (140-400) K/mcL MPV (9.4-12.4) fL Immature Gran % (0-4) % Seg Neutrophils % % Lymphocytes % % Monocytes % % Eosinophils % % Basophils % % Neutrophils # (1.6-8.9) K/mcL Lymphocytes # (0.6-4.6) K/mcL Monocytes # (0.0-1.3) K/mcL Eosinophils # (0.0-0.6) K/mcL Basophils # (0.0-0.2) K/mcL VBG pH 7.38 (7.32-7.42) pH Units VBG pCO2 45 (41-51) mmHg VBG pO2 106 H (25-50) mmHg VBG HCO3 27 (21-27) mEq/L Sodium (136-145) mEq/L Potassium (3.5-5.1) mEq/L Chloride (98-107) mEq/L Carbon Dioxide (23-29) mEq/L BUN (8-23) mg/dL Creatinine (0.60-1.20) mg/dL Est GFR ( Amer) (> 60) Est GFR (Non-Af Amer) (> 60) BUN/Creatinine Ratio (6-26) Glucose (70-105) mg/dL Calculated Osmolality (280-300) Calcium (8.6-10.3) mg/dL Troponin I (< 0.04) ng/mL B-Natriuretic Peptide 9 (Less than 100) pg/mL - Radiology Data Radiology results reviewed: Yes I reviewed the patient's radiology results. Chest X-Ray 09/22/17 19:35 IMPRESSION: 1. No active pulmonary disease. D/ / Naseem Lofton MD / Naseem Lofton MD Interpreting Provider: Naseem Lofton MD - EKG Data EKG attestation: Yes I reviewed and interpreted this EKG. EKG shows normal: Reports: sinus rhythm Rate: Reports: tachycardia Rhythm: Reports: NSR [place]/QRS: Reports: normal Interpretation: Reports: no acute changes S.B.ACasiRCasi - S.B.A.RCasi Situation: Demographics Background: Presenting Complaint Assessment: Vital Signs, Course and respsone to treatment, Patient/Family Expectation Recommendation: Barrier(s) to disposition, Recommendation based on pending studies, treatments, or consults S.B.A.RCasi Report Given to: Dr. Leonard S.B.ASmith Repor Time: 21:21 Attestation Statement - Attestation Attestation: I examined this patient and my medical decision-making was reviewed with the Resident Physician. I agree with the documented findings, disposition and treatment plan as described except to the extent set forth below. Suspect COPD exacerbation. Plan to admit for hypoxic respiratory failure. Gqhi-kl-hcdi aerosol treatments as well as steroids were administered. Critical care performed:35 Time is exclusive of separately billable procedures. Time includes: direct patient care, patient reassessment, coordination of patient care, interpretation of data (laboratory data, radiology data, and respiratory data), review of patient's medical records, medical consultation and documentation of patient care. Procedures included in critical care time:0 Procedures excluded from critical care time: 0
[2017-09-22] MEDS ORDERED: *HR* LORazepam 1 MG TABLET PO ONE (19:44)
[2017-09-22 19:58] LABS: Basophils % 0.1 %; Eosinophils % 0.4 %; Hematocrit 39.4 % (35.3-44.9); Hemoglobin 12.2 g/dL (11.5-15.4); Immature Granulocytes % 0.9 % (0-4); Mean Corpuscular Hemoglobin 26.6 pg (28.0-33.3); Mean Platelet Volume 9.2 fL (9.4-12.4); Monocytes # 0.2 K/mcL (0.0-1.3); Monocytes % 2.9 %; Neutrophils # 6.3 K/mcL (1.6-8.9); Platelet Count 291 K/mcL (140-400); Red Blood Count 4.58 M/mcL (3.82-4.97); Red Cell Distribution Width 14.9 % (11.5-14.5); Segmented Neutrophils % 82.7 %
[2017-09-22 20:06] LABS: VBG HCO3 27 mEq/L (21-27); VBG PCO2 45 mmHg (41-51); VBG PH 7.38 pH Units (7.32-7.42); VBG PO2 106 mmHg (25-50)
[2017-09-22] MEDS ORDERED: Levofloxacin 750 MG/150 ML 750 MG/150 ML BAG IVPB ONE (20:18)
[2017-09-22 20:25] LABS: BUN/Creatinine Ratio 23 (6-26); Blood Urea Nitrogen 15 mg/dL (8-23); Calcium 9.3 mg/dL (8.6-10.3); Carbon Dioxide 25 mEq/L (23-29); Chloride 103 mEq/L (98-107); Glucose 201 mg/dL (70-105); Osmolality,Calculated 293 (280-300); Potassium 4.5 mEq/L (3.5-5.1); Sodium 138 mEq/L (136-145); eGFR For African Americans > 60 (> 60); eGFR For Non-African Americans > 60 (> 60)
[2017-09-22] MEDS ORDERED: Albuterol 2.5 MG/3 ML NEBULIZER IH ONE (20:51)
[2017-09-22] MEDS ORDERED: traMADol 50 MG TABLET PO PRN (21:00)
[2017-09-22] MEDS ORDERED: Naloxone 0.4 MG/ML INJ IVP PRN (21:00)
[2017-09-22] MEDS ORDERED: Albuterol 2.5 MG/3 ML NEBULIZER IH PRN (21:00)
[2017-09-22] MEDS ORDERED: Nitroglycerin 0.4 MG TAB.SUBL SL PRN (21:12)
[2017-09-22] MEDS: Ipratropium/Albuterol Neb 3 ML IH SCH (22:36)
[2017-09-22] MEDS: MethylPREDNISolone 40 MG/ML VIAL IVP SCH (22:36)
[2017-09-22] MEDS: 0.9 % Sodium Chloride 1,000 ML IVC SCH (22:37)
[2017-09-22] MEDS: Acetylcysteine 10% 2 ML INHSOL IH SCH (22:38)
--- NOTE | 2017-09-22 23:07 | Internal Med History&Physical ---
Date of Encounter: 09/22/17 Time of Encounter: 20:45 Assessment and Plan (1) Acute and chronic respiratory failure ([id number]) Current visit: No Status: Acute 1. Patient in moderate to severe respiratory distress. 2. Will continue aggressive treatment with IV steroids, scheduled and PRN aerosols, and oxygen. 3. Will use BiPap as needed. 4. Admit to ICU step down unit and monitor closely. Qualifiers: Respiratory failure complication: hypoxia Qualified Code(s): J96.21 - Acute and chronic respiratory failure with hypoxia (2) COPD exacerbation Current visit: No Status: Acute 1. Will place on IV antibiotics in addition to treatments noted above. 2. Close monitoring of respiratory status. 3. Will proceed with Bipap as needed and proceed with intubation, if necessary if she decompensates. (3) Type 2 diabetes mellitus Current visit: Yes Status: Chronic 1. Hold home Metformin dosing. 2. Will place on SSI and adjust dosing as necessary. 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 Heparin SQ. Internal Medicine - H&P: HPI Chief complaint: coughing, wheezing Admitted From: Emergency Dept Plans for Post Hospital Care: Home History of present illness: Ms. Leon is a 61 year old female who presents with a several day history of coughing, wheezing, worsening shortness of breath, and body aches. She wears chronic home oxygen, and she had to increase her oxygen lately. She came to ER for evaluation where she was noted to be hypoxemic and in significant respiratory distress. She was subsequently admitted to the hospitalist service. Upon my assessment of the patient in ER, she is coughing audibly, wheezing extensively, and having some conversational dyspnea and occasional pursed lip breathing. She states she feels a little better than initial presentation, but she is still having significant work of breathing. She is quite tachycardic, most likely from respiratory distress and aerosols administered. She denies any vomiting or diarrhea. She has been exposed to multiple ill contacts lately. I asked the ER staff to test for her for influenza, and this came back negative. Given her severe respiratory distress and hypoxemic respiratory failure, I am admitting her to the ICU stepdown unit for closer monitoring and care. Past Med Surg Social Fam HX - Past Medical History Attestation: Yes The following information was validated with the patient. Source: patient, old records reviewed Medical history: COPD, diabetes, GERD, glaucoma, hyperlipidemia, hypertension 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: anxiety, depression - Past Surgical History Surgical History: cataract, hysterectomy - Social History Smoking Status: Former smoker Smokeless Tobacco Status: No Alcohol use: none Drug use: none Current living situation: Home, With Family Activity Level: Independent ambulation Recent Out of Country Travel Within the Last 8 Weeks: No - Family History Mother Adopted: No Living Status: Hx Family Cancer: Yes (Pancreatic cancer) Father Living Status: Hx Family Cardiac Disorders: Yes Hx Family Endocrine Disorder: Yes (Diabetes) Internal Medicine - H&P: Meds Budesonide/Formoterol 160/4.5 [Symbicort] 2 puff IH BID 06/22/15 [History] Roflumilast [Daliresp] 500 mcg PO QAM 06/22/15 [History] Albuterol Sulfate [Proair Hfa] 2 puff IH Q4H PRN 07/14/16 [History] Atorvastatin Calcium [Lipitor] 80 mg PO QAM 07/14/16 [History] Sertraline [Zoloft] 50 mg PO DAILY 07/15/16 [History] Aspirin Enteric Coated [Aspirin EC] 81 mg PO DAILY 10/22/16 [History] Cyanocobalamin (Vitamin B-12) [Vitamin B-12] 1,000 mcg PO DAILY 10/22/16 [ History] Cyclosporine [Restasis] 1 each OP BID 10/22/16 [History] Ferrous Sulfate 325 mg PO DAILY 10/22/16 [History] Furosemide [Lasix] 20 mg PO DAILY 10/22/16 [History] Guaifenesin [Mucinex] 600 mg PO Q12H PRN 10/22/16 [History] Omeprazole [PriLOSEC] 20 mg PO DAILY 10/22/16 [History] Travoprost [Travatan Z] 1 drop OP QPM 10/22/16 [History] metFORMIN [Glucophage] 500 mg PO BIDWM #60 tablet 10/27/16 [Rx] Acetylcysteine [E-Rdlnha-q-Cysteine] 600 mg PO BID 04/01/17 [History] Cyclobenzaprine HCl 10 mg PO HS 04/01/17 [History] Ergocalciferol (VITAMIN D2) [Vitamin D2] 50,000 unit PO QWEEK 04/01/17 [History] Umeclidinium [place] [Incruse Ellipta] 1 puff IH DAILY 04/01/17 [History] Latanoprost [Xalatan] 1 drop OP HS 07/08/17 [History] Nitroglycerin 0.4 mg PO Q5M PRN 07/08/17 [History] Ezetimibe [Zetia] 10 mg PO DAILY 09/01/17 [History] Albuterol Neb [Proventil Neb] 2.5 mg IH TID 09/22/17 [History] Metoprolol [Lopressor] 12.5 mg PO DAILY 09/22/17 [History] Oxygen 2.5 l NS AD 09/22/17 [History] Potassium Chloride 20 meq PO DAILY 09/22/17 [History] 3 Allergy/AdvReac Type Severity Reaction Status Date / Time acetaminophen [From Vicodin] AdvReac Headache Verified 07/15/16 13:34 hydrocodone [From Vicodin] AdvReac Headache Verified 07/15/16 13:34 methylprednisolone AdvReac Itching Verified 04/01/17 09:19 [From Solu-Medrol] - Constitutional Constitutional: chills, no fever(s), no night sweats - EENT Eyes: no blurry vision, no change in vision Ears: no ear pain, no tinnitus Nose, mouth and throat: nasal congestion, no sinus pressure, no sore throat - Cardiovascular Cardiovascular ROS IM: dyspnea, dyspnea on exertion, no chest pain, no edema, no orthopnea, no paroxysmal nocturnal dyspnea, no syncope - Respiratory Respiratory: cough, dyspnea, dyspnea on exertion, wheezing, chest congestion, excessive phlegm production, change in phlegm color, no hemoptysis, no pain on inspiration, no pain with cough - Gastrointestinal Gastrointestinal: no abdominal pain, no diarrhea, no hematemesis, no hematochezia, no melena, no nausea, no vomiting - Genitourinary Genitourinary: no dysuria, no flank pain, no hematuria - Musculoskeletal Musculoskeletal ROS IM: no arthralgias, no back pain - Integumentary Integumentary IM: no rash, no jaundice - Neurological Neurological ROS: no disequilibrium, no dizziness, no focal weakness, no frequent falls, no headache(s) - Psychiatric Psychiatric: no anxiety, no depression - Endocrine Endocrine IM: no polydipsia, no polyuria - Hematologic/Lymphatic Hematologic/Lymphatic: no easy bruising, no lymphadenopathy - Allergic/Immunologic Allergic/Immunologic: wheezing, no GI upset with certain foods - Constitutional Vitals: Temp Pulse Resp BP Pulse Ox 98.3 F 122 26 108/73 94 09/22/17 19:29 09/22/17 20:56 09/22/17 21:56 09/22/17 21:56 09/22/17 21:17 General appearance: Present: cooperative, A&O X 3, pleasant, severe distress ( respiratory -- coughing, wheezing, pursed lip breathing at times) - Head Head exam: Present: atraumatic, normal inspection - Eye Eye exam: Present: EOMI, normal appearance, PERRL. Absent: scleral icterus Pupils: Present: normal accommodation - ENT ENT exam: Present: mucous membranes dry, normal exam - Neck Neck exam general surgery: Present: full ROM, supple. Absent: lymphadenopathy, tenderness, nuchal rigidity - Expanded Neck Exam Neck exam: Absent: carotid bruit - Respiratory Respiratory exam: Present: accessory muscle use, decreased breath sounds, prolonged expiratory phase, respiratory distress (moderate), rhonchi, wheezes ( diffuse), tachypnea. Absent: chest wall tenderness, CTAB, rales, stridor - Cardiovascular Cardiovascular exam: Present: RRR, +S1, +S2, tachycardia. Absent: diastolic murmur, JVD, systolic murmur - GI/Abdominal GI/Abdominal exam: Present: normal bowel sounds, soft. Absent: hepatomegaly, mass, splenomegaly, tenderness - Extremities Exam Extremities exam: Present: full ROM, normal capillary refill, warm, radial pulses palpable and symmetrical. Absent: calf tenderness, joint swelling, tenderness - Back Exam Back exam: Absent: CVA tenderness (L), CVA tenderness (R) - Neurological Exam Neurological exam: Present: alert, CN II-XII intact, oriented X3, no focal deficits - Psychiatric Psychiatric exam: Present: normal affect, normal mood - Skin Skin exam: Present: dry, warm. Absent: rash Internal Med - H&P Results - Labs CBC & Chem 7: 09/22/17 19:48 09/22/17 19:48 - EKG Data -: EKG Interpreted by Myself - EKG Data Prior EKG available for review: no EKG comments: 09/22/17 23:12 Sinus tachycardia - Diagnostic Studies Chest x-ray Status: image reviewed by me (hyperinflated; otherwise negative)
[2017-09-22] MEDS ORDERED: *HR* Dextrose 50 % in Water (Syg) 50 ML SYRINGE IVP PRN (23:13)
[2017-09-22] MEDS ORDERED: D5% in Water 1,000 ML IVC PRN (23:13)
[2017-09-22] MEDS ORDERED: Dextrose Gel 15 GM/37.5 ML TUBE PO PRN ×2 (23:13)
[2017-09-22] MEDS: Insulin LISPRO 300 UNITS/3 ML VIAL SQ SCH (23:41)
[2017-09-23] MEDS: Ipratropium/Albuterol Neb 3 ML IH SCH ×4 (04:26→20:30)
[2017-09-23] MEDS: Acetylcysteine 10% 2 ML INHSOL IH SCH ×4 (04:26→20:31)
[2017-09-23] MEDS: *HR* Heparin 5,000 UNIT/ML VIAL SQ SCH ×2 (04:55→18:31)
[2017-09-23] MEDS: MethylPREDNISolone 40 MG/ML VIAL IVP SCH ×3 (04:55→20:40)
[2017-09-23] MEDS ORDERED: cefTRIAXone 1,000 MG in Water for inj. (sterile) 10 ML IVPB SCH (07:00)
[2017-09-23 07:01] LABS: Alanine Aminotransferase 28 Units/L (7-52); Albumin 3.6 g/dL (3.5-5.7); Albumin/Globulin Ratio 1.6 (1.1-2.2); Alkaline Phosphatase 34 Units/L (34-104); Aspartate Amino Transferase 19 Units/L (13-39); BUN/Creatinine Ratio 23 (6-26); Bilirubin,Total 0.4 mg/dL (0.3-1.0); Blood Urea Nitrogen 12 mg/dL (8-23); Calcium 8.4 mg/dL (8.6-10.3); Carbon Dioxide 24 mEq/L (23-29); Chloride 107 mEq/L (98-107); Globulin 2.3 g/dL (2.4-3.5); Glucose 229 mg/dL (70-105); Osmolality,Calculated 295 (280-300); Potassium 4.1 mEq/L (3.5-5.1); Sodium 139 mEq/L (136-145); Total Protein 5.9 g/dL (6.4-8.9); eGFR For African Americans > 60 (> 60); eGFR For Non-African Americans > 60 (> 60)
[2017-09-23 07:12] LABS: Hematocrit 33.7 % (35.3-44.9); Hemoglobin 10.7 g/dL (11.5-15.4); Immature Granulocytes % 1.6 % (0-4); Lymphocytes # 0.4 K/mcL (0.6-4.6); Lymphocytes % 6.6 %; Mean Corpuscular HGB Conc 31.8 g/dL (31.6-35.5); Mean Corpuscular Volume 85.1 fL (83.0-100.0); Mean Platelet Volume 9.5 fL (9.4-12.4); Monocytes % 0.7 %; Neutrophils # 5.3 K/mcL (1.6-8.9); Platelet Count 235 K/mcL (140-400); Red Blood Count 3.96 M/mcL (3.82-4.97); Red Cell Distribution Width 15.1 % (11.5-14.5); Segmented Neutrophils % 91.1 %
[2017-09-23] MEDS: Aspirin Enteric Coated 81 MG Tablet PO SCH (08:09)
[2017-09-23] MEDS: Azithromycin 500 MG in D5% in Water 250 ML IVPB SCH (08:10)
[2017-09-23] MEDS: 0.9 % Sodium Chloride 1,000 ML IVC SCH (08:11)
[2017-09-23] MEDS: Insulin LISPRO 300 UNITS/3 ML VIAL SQ SCH ×4 (08:11→22:11)
[2017-09-23] MEDS: (Cyclosporine [Restasis] 1 EACH) OP SCH ×2 (08:12→20:40)
[2017-09-23] MEDS ORDERED: (Ezetimibe [Zetia] 10 MG) PO SCH (09:00)
[2017-09-23] MEDS ORDERED: (Roflumilast [Daliresp] 500 MCG) PO SCH (09:00)
[2017-09-23] MEDS ORDERED: (Incruse Ellipta] 1 PUFF) IH SCH (09:00)
[2017-09-23] MEDS: Budesonide/Formoterol 160/4.5 MDI IH SCH ×2 (11:29→20:30)
[2017-09-23] MEDS ORDERED: Insulin DETEMIR 100 UNIT/ML X5UNITS SQ ONE (12:32)
--- NOTE | 2017-09-23 12:33 | Internal Med Progress Note ---
Date of Encounter: 09/23/17 Time of Encounter: 12:30 - Assessment and plan (1) Acute and chronic respiratory failure (kxhay-mb-uzoyjxe) Current Visit: No Status: Acute Assessment and plan: Geriatric COPD exacerbation as below. Wean down on oxygen as tolerated. Continue nebulizers. Qualifiers: Respiratory failure complication: hypoxia Qualified Code(s): J96.21 - Acute and chronic respiratory failure with hypoxia (2) COPD exacerbation Current Visit: No Status: Acute Assessment and plan: Continue IV steroids. Stop ceftriaxone and keep on Zithromax. Wean down oxygen as tolerated. She is on chronic O2. She usually uses 2.5 L. Continue nebs. Negative flu. Says that her fiance and his mother both had the flu last week. (3) Type 2 diabetes mellitus Current Visit: Yes Status: Chronic Assessment and plan: Continue with insulin sliding scale. Glucose is elevated in the 200s but she is on steroids. We will give her 10 units of Levemir this morning. Continue with Accu-Cheks. 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 No acute events. She is currently on 3 L nasal cannula oxygen. She was admitted with COPD exacerbation. Has been afebrile. She was discharged to couple weeks back with a COPD exacerbation as well. Tells me that her fiance and his mother have had the flu. She tested negative for the flu in the ER. - Constitutional Vitals: Temp Pulse Resp BP Pulse Ox 97.9 F 108 20 118/66 96 09/23/17 07:44 09/23/17 11:30 09/23/17 11:34 09/23/17 07:44 09/23/17 11:34 General appearance: Present: cooperative, A&O X 3, pleasant, severe distress ( respiratory -- coughing, wheezing, pursed lip breathing at times) Exam: GEN: NAD CVS: RRR. S1, S2, No m/r/g RESP: Diffuse expiratory wheezes posteriorly ABD: Soft, NT, ND, +BS EXT: No edema. 2+ DP. No rashes NEURO: Nonfocal Internal Medicine: Result - Labs CBC & Chem 7: 09/23/17 06:01 09/23/17 06:01 Labs: Short CBC 09/23/17 Range/Units 06:01 WBC 5.8 (4.3-11.1) K/mcL Hgb 10.7 L D (11.5-15.4) g/dL Hct 33.7 L (35.3-44.9) % Plt Count 235 (140-400) K/mcL Neutrophils # 5.3 (1.6-8.9) K/mcL BMP 09/23/17 06:01 Sodium 139 Potassium 4.1 Chloride 107 Carbon Dioxide 24 BUN 12 Creatinine 0.52 L Glucose 229 H Calcium 8.4 L Liver Function 09/23/17 Range/Units 06:01 Total Bilirubin 0.4 (0.3-1.0) mg/dL AST 19 (13-39) Units/L ALT 28 (7-52) Units/L Alkaline Phosphatase 34 (34-104) Units/L Albumin 3.6 (3.5-5.7) g/dL Consult Discharge Plan - Plan Referrals: Ray Garcia MD [Primary Care Provider] -
[2017-09-23] MEDS: Furosemide 20 MG TABLET PO SCH (12:56)
[2017-09-23] MEDS ORDERED: Latanoprost 2.5 ML BOTTLE BOTH EYES SCH (18:00)
--- NOTE | 2017-09-23 20:56 | Electrocardiograph Report ---
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
[2017-09-23] MEDS: *HR* Acetylcysteine 20% 600 MG/3 ML ORAL SYRINGE PO SCH (22:08)
[2017-09-23] MEDS: Latanoprost 2.5 ML BOTTLE BOTH EYES SCH (22:08)
[2017-09-24] MEDS: Levalbuterol Neb 0.63 MG/3 ML IH SCH ×4 (04:37→11:04)
[2017-09-24] MEDS: Acetylcysteine 10% 2 ML INHSOL IH SCH ×4 (04:38→20:13)
[2017-09-24] MEDS: MethylPREDNISolone 40 MG/ML VIAL IVP SCH ×2 (05:44→12:10)
[2017-09-24] MEDS: *HR* Heparin 5,000 UNIT/ML VIAL SQ SCH ×2 (05:44→16:48)
[2017-09-24] MEDS: Budesonide/Formoterol 160/4.5 MDI IH SCH ×2 (07:35→20:11)
[2017-09-24 07:49] LABS: Basophils % 0.1 %; Hematocrit 34.8 % (35.3-44.9); Hemoglobin 11.2 g/dL (11.5-15.4); Immature Granulocytes % 0.9 % (0-4); Lymphocytes # 0.8 K/mcL (0.6-4.6); Lymphocytes % 6.5 %; Mean Corpuscular HGB Conc 32.2 g/dL (31.6-35.5); Mean Corpuscular Hemoglobin 27.3 pg (28.0-33.3); Mean Corpuscular Volume 84.7 fL (83.0-100.0); Mean Platelet Volume 9.7 fL (9.4-12.4); Monocytes # 0.5 K/mcL (0.0-1.3); Monocytes % 3.7 %; Neutrophils # 11.3 K/mcL (1.6-8.9); Platelet Count 262 K/mcL (140-400); Red Blood Count 4.11 M/mcL (3.82-4.97); Red Cell Distribution Width 15.3 % (11.5-14.5); Segmented Neutrophils % 88.8 %
[2017-09-24 07:58] LABS: BUN/Creatinine Ratio 35 (6-26); Blood Urea Nitrogen 21 mg/dL (8-23); Calcium 9.7 mg/dL (8.6-10.3); Carbon Dioxide 29 mEq/L (23-29); Chloride 104 mEq/L (98-107); Glucose 209 mg/dL (70-105); Osmolality,Calculated 297 (280-300); Potassium 4.3 mEq/L (3.5-5.1); Sodium 139 mEq/L (136-145); eGFR For African Americans > 60 (> 60); eGFR For Non-African Americans > 60 (> 60)
[2017-09-24] MEDS: Furosemide 20 MG TABLET PO SCH (08:07)
[2017-09-24] MEDS: Aspirin Enteric Coated 81 MG Tablet PO SCH (08:07)
[2017-09-24] MEDS: Azithromycin 500 MG in D5% in Water 250 ML IVPB SCH (08:08)
[2017-09-24] MEDS: *HR* Acetylcysteine 20% 600 MG/3 ML ORAL SYRINGE PO SCH ×2 (08:09→20:58)
[2017-09-24] MEDS: Insulin LISPRO 300 UNITS/3 ML VIAL SQ SCH ×4 (08:12→21:00)
[2017-09-24] MEDS: (Cyclosporine [Restasis] 1 EACH) OP SCH ×2 (08:13→20:58)
--- NOTE | 2017-09-24 13:30 | Internal Med Progress Note ---
Date of Encounter: 09/24/17 Time of Encounter: 11:40 - Assessment and plan (1) Acute and chronic respiratory failure (aetqb-ts-ovzhdsx) Current Visit: Yes Status: Acute Assessment and plan: Continue O2 supplementation. Appears to have atelectasis as she does have cough with deep inspiration. Will provide incentive spirometry. Wean FiO2 as tolerated. Qualifiers: Respiratory failure complication: hypoxia Qualified Code(s): J96.21 - Acute and chronic respiratory failure with hypoxia (2) COPD exacerbation Current Visit: Yes Status: Acute Assessment and plan: Continues to have wheezing and cough. Will continue bronchodilators. Begin to taper steroids at this time. Moderate risk for complications. (3) Type 2 diabetes mellitus Current Visit: Yes Status: Chronic Assessment and plan: Blood sugars remain elevated. Due to steroid use. Tapering steroids so expect improvement in blood sugars. Will continue current insulin regimen. Monitor blood sugars closely. Diabetic diet. 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 She is feeling better but continues to have cough. Shortness of breath is improving. Not yet at baseline. No fever or chills reported overnight. - Constitutional Vitals: Temp Pulse Resp BP Pulse Ox 98.4 F 81 18 125/75 90 09/24/17 08:23 09/24/17 12:20 09/24/17 11:58 09/24/17 11:58 09/24/17 11:58 General appearance: Present: cooperative, mild distress, A&O X 3, pleasant - Neck Neck exam general surgery: Present: supple, trachea midline. Absent: lymphadenopathy - Respiratory Respiratory exam: Present: decreased breath sounds (At both bases), prolonged expiratory phase, wheezes. Absent: accessory muscle use, rales, rhonchi - Cardiovascular Cardiovascular exam: Present: RRR, +S1, +S2. Absent: diastolic murmur, gallop, rubs, systolic murmur - GI/Abdominal GI/Abdominal exam: Present: normal bowel sounds, soft, no peritoneal signs. Absent: distended, tenderness - Extremities Exam Extremities exam: Present: warm, radial pulses palpable and symmetrical. Absent : calf tenderness, cyanotic, pedal edema - Neurological Exam Neurological exam: Present: CN II-XII intact, oriented X3, no focal deficits. Absent: pronater drift, facial droop, speech deficit Internal Medicine: Result - Labs CBC & Chem 7: 09/24/17 06:57 09/24/17 06:57 Labs: Short CBC 09/24/17 Range/Units 06:57 WBC 12.7 H D (4.3-11.1) K/mcL Hgb 11.2 L (11.5-15.4) g/dL Hct 34.8 L (35.3-44.9) % Plt Count 262 (140-400) K/mcL Neutrophils # 11.3 H (1.6-8.9) K/mcL BMP 09/24/17 06:57 Sodium 139 Potassium 4.3 Chloride 104 Carbon Dioxide 29 BUN 21 Creatinine 0.60 Glucose 209 H Calcium 9.7 Consult Discharge Plan - Plan Referrals: Ray Garcia MD [Primary Care Provider] -
[2017-09-24 15:28] LABS: Adenovirus Not Detected (Not Detect); Bordetella Pertussis Not Detected (Not Detect); Chlamydophila pneumoniae Not Detected (Not Detect); Coronavirus 229E Not Detected (Not Detect); Coronavirus HKU1 Not Detected (Not Detect); Coronavirus NL63 Not Detected (Not Detect); Coronavirus OC43 Not Detected (Not Detect); Human Metapneumovirus ***DETECTED*** (Not Detect); Human Rhinovirus/Enterovirus Not Detected (Not Detect); Influenza A Subtype 2009 H1 Not Detected (Not Detect); Influenza A Untypeable Not Detected (Not Detect); Influenza B Not Detected (Not Detect); Mycoplasma pneumoniae Not Detected (Not Detect); Parainfluenza Virus 1 Not Detected (Not Detect); Parainfluenza Virus 2 Not Detected (Not Detect); Parainfluenza Virus 3 Not Detected (Not Detect); Parainfluenza Virus 4 Not Detected (Not Detect); Respiratory Syncytial Virus Not Detected (Not Detect)
[2017-09-24] MEDS: Levalbuterol Neb 1.25 MG/3 ML IH SCH ×2 (15:57→20:11)
[2017-09-24] MEDS: Latanoprost 2.5 ML BOTTLE BOTH EYES SCH (20:58)
[2017-09-25] MEDS: Levalbuterol Neb 1.25 MG/3 ML IH SCH ×7 (01:20→23:59)
[2017-09-25] MEDS: Acetylcysteine 10% 2 ML INHSOL IH SCH ×2 (04:21→08:40)
[2017-09-25 04:36] LABS: Basophils % 0.2 %; Hematocrit 35.8 % (35.3-44.9); Hemoglobin 11.1 g/dL (11.5-15.4); Immature Granulocytes % 1.3 % (0-4); Lymphocytes # 1.4 K/mcL (0.6-4.6); Lymphocytes % 11.3 %; Mean Corpuscular Hemoglobin 26.6 pg (28.0-33.3); Mean Corpuscular Volume 85.9 fL (83.0-100.0); Mean Platelet Volume 9.7 fL (9.4-12.4); Monocytes % 8.2 %; Neutrophils # 9.8 K/mcL (1.6-8.9); Platelet Count 281 K/mcL (140-400); Red Blood Count 4.17 M/mcL (3.82-4.97); Red Cell Distribution Width 15.1 % (11.5-14.5)
[2017-09-25] MEDS: *HR* Heparin 5,000 UNIT/ML VIAL SQ SCH ×2 (06:08→16:37)
[2017-09-25] MEDS: Insulin LISPRO 300 UNITS/3 ML VIAL SQ SCH ×4 (07:37→21:24)
[2017-09-25] MEDS: Budesonide/Formoterol 160/4.5 MDI IH SCH ×2 (08:38→20:16)
[2017-09-25] MEDS: predniSONE 20 MG TABLET PO SCH (08:54)
[2017-09-25] MEDS: Azithromycin 500 MG in D5% in Water 250 ML IVPB SCH (08:54)
[2017-09-25] MEDS: Furosemide 20 MG TABLET PO SCH (08:55)
[2017-09-25] MEDS: Aspirin Enteric Coated 81 MG Tablet PO SCH (08:55)
[2017-09-25] MEDS: (Cyclosporine [Restasis] 1 EACH) OP SCH ×2 (08:55→21:23)
[2017-09-25] MEDS: *HR* Acetylcysteine 20% 600 MG/3 ML ORAL SYRINGE PO SCH ×2 (09:08→21:22)
[2017-09-25] MEDS ORDERED: Mag Hydrox/Al Hydrox/Simeth 30 ML UDC PO PRN (15:21)
--- NOTE | 2017-09-25 15:25 | Internal Med Progress Note ---
Date of Encounter: 09/25/17 Time of Encounter: 10:15 - Assessment and plan (1) Acute and chronic respiratory failure (sokhf-br-exiaaes) Current Visit: Yes Status: Acute Assessment and plan: Currently on 2.5 L of O2 supplementation. We will continue. Qualifiers: Respiratory failure complication: hypoxia Qualified Code(s): J96.21 - Acute and chronic respiratory failure with hypoxia (2) COPD exacerbation Current Visit: Yes Status: Acute Assessment and plan: Patient has bilateral wheezing. No longer coughing with deep inspiration. Continue bronchodilators. Continue tapering steroids. Also on azithromycin. Will stop inhaled acetylcysteine. Continue oral acetylcysteine. Patient positive for human MetaPneumovirus. Likely inciting agent for acute episode of COPD exacerbation. Patient also reporting other upper respiratory tract symptoms including congestion and earache. Treat symptomatically. (3) Type 2 diabetes mellitus Current Visit: Yes Status: Chronic Assessment and plan: Blood sugars were at 128 this morning. Rising through the day. Will increase sliding scale coverage further. Continue to monitor blood sugars. 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 Could be related to acute viral illness. (6) GERD (gastroesophageal reflux disease) Current Visit: Yes Status: Chronic Assessment and plan: Continue omeprazole. Maalox for symptomatic relief Qualifiers: Esophagitis presence: without esophagitis Qualified Code(s): K21.9 - Gastro -esophageal reflux disease without esophagitis - Subjective Interval history: Patient complains of nausea and dizziness. Continues to have cough. Shortness of breath is improving. No fever or chills overnight. - Constitutional Vitals: Temp Pulse Resp BP Pulse Ox 98.5 F 93 18 129/80 95 09/25/17 11:07 09/25/17 11:38 09/25/17 11:15 09/25/17 11:07 09/25/17 11:15 General appearance: Present: cooperative, mild distress, A&O X 3, pleasant, answers questions appropriately - Neck Neck exam general surgery: Present: supple, trachea midline. Absent: lymphadenopathy - Respiratory Respiratory exam: Present: prolonged expiratory phase, wheezes. Absent: accessory muscle use, rales, rhonchi - Cardiovascular Cardiovascular exam: Present: RRR, +S1, +S2. Absent: diastolic murmur, gallop, rubs, systolic murmur - GI/Abdominal GI/Abdominal exam: Present: normal bowel sounds, soft, no peritoneal signs. Absent: distended, tenderness - Extremities Exam Extremities exam: Present: warm, radial pulses palpable and symmetrical. Absent : calf tenderness, cyanotic, pedal edema - Neurological Exam Neurological exam: Present: alert, oriented X3, no focal deficits. Absent: facial droop, speech deficit - Skin Skin exam: Present: dry, intact Internal Medicine: Result - Labs CBC & Chem 7: 09/25/17 03:46 09/24/17 06:57 Labs: Short CBC 09/25/17 Range/Units 03:46 WBC 12.4 H (4.3-11.1) K/mcL Hgb 11.1 L (11.5-15.4) g/dL Hct 35.8 (35.3-44.9) % Plt Count 281 (140-400) K/mcL Neutrophils # 9.8 H (1.6-8.9) K/mcL Consult Discharge Plan - Plan Referrals: Ray Garcia MD [Primary Care Provider] -
[2017-09-25] MEDS: Loratadine 10 MG TABLET PO SCH (15:39)
[2017-09-25] MEDS: Latanoprost 2.5 ML BOTTLE BOTH EYES SCH (21:24)
[2017-09-26] MEDS: Levalbuterol Neb 1.25 MG/3 ML IH SCH ×3 (03:47→11:27)
[2017-09-26] MEDS: *HR* Heparin 5,000 UNIT/ML VIAL SQ SCH (05:12)
[2017-09-26 07:35] VITALS: BP 122/77
[2017-09-26] MEDS: Budesonide/Formoterol 160/4.5 MDI IH SCH (08:04)
[2017-09-26] MEDS: *HR* Acetylcysteine 20% 600 MG/3 ML ORAL SYRINGE PO SCH (08:11)
[2017-09-26] MEDS: Insulin LISPRO 300 UNITS/3 ML VIAL SQ SCH (08:11)
[2017-09-26] MEDS: Loratadine 10 MG TABLET PO SCH (08:12)
[2017-09-26] MEDS: predniSONE 20 MG TABLET PO SCH (08:12)
[2017-09-26] MEDS: Furosemide 20 MG TABLET PO SCH (08:12)
[2017-09-26] MEDS: Aspirin Enteric Coated 81 MG Tablet PO SCH (08:13)
[2017-09-26] MEDS: (Cyclosporine [Restasis] 1 EACH) OP SCH (08:13)
[2017-09-26] MEDS ORDERED: Azithromycin 250 MG TABLET PO SCH (09:00)
--- NOTE | 2017-09-26 11:28 | Discharge Summary ---
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: without group home use Qualified Code(s): E11.65 - Type 2 diabetes mellitus with hyperglycemia (4) DVT prophylaxis Priority: Secondary Status: Acute (5) Dizziness Priority: Secondary Status: Resolved (6) GERD (gastroesophageal reflux disease) Priority: Secondary Status: Chronic Qualifiers: Esophagitis presence: without esophagitis Qualified Code(s): K21.9 - Gastro -esophageal reflux disease without esophagitis - Discharge Medications Prescriptions: Azithromycin [Zithromax] 500 mg PO DAILY #4 tablet Loratadine [Claritin] 10 mg PO DAILY #30 tablet predniSONE [PredniSONE] 10 mg PO DAILY 8 Days tablet Home Medications: Budesonide/Formoterol 160/4.5 [Symbicort] 2 puff IH BID 06/22/15 [History] Roflumilast [Daliresp] 500 mcg PO QAM 06/22/15 [History] Albuterol Sulfate [Proair Hfa] 2 puff IH Q4H PRN 07/14/16 [History] Atorvastatin Calcium [Lipitor] 80 mg PO QAM 07/14/16 [History] Sertraline [Zoloft] 50 mg PO DAILY 07/15/16 [History] Aspirin Enteric Coated [Aspirin EC] 81 mg PO DAILY 10/22/16 [History] Cyanocobalamin (Vitamin B-12) [Vitamin B-12] 1,000 mcg PO DAILY 10/22/16 [ History] Cyclosporine [Restasis] 1 each OP BID 10/22/16 [History] Ferrous Sulfate 325 mg PO DAILY 10/22/16 [History] Furosemide [Lasix] 20 mg PO DAILY 10/22/16 [History] Guaifenesin [Mucinex] 600 mg PO Q12H PRN 10/22/16 [History] Omeprazole [PriLOSEC] 20 mg PO DAILY 10/22/16 [History] Travoprost [Travatan Z] 1 drop OP QPM 10/22/16 [History] metFORMIN [Glucophage] 500 mg PO BIDWM #60 tablet 10/27/16 [Rx] Acetylcysteine [H-Dqhmvw-z-Cysteine] 600 mg PO BID 04/01/17 [History] Cyclobenzaprine HCl 10 mg PO HS 04/01/17 [History] Ergocalciferol (VITAMIN D2) [Vitamin D2] 50,000 unit PO QWEEK 04/01/17 [History] Umeclidinium [place] [Incruse Ellipta] 1 puff IH DAILY 04/01/17 [History] Latanoprost [Xalatan] 1 drop OP HS 07/08/17 [History] Nitroglycerin 0.4 mg PO Q5M PRN 07/08/17 [History] Ezetimibe [Zetia] 10 mg PO DAILY 09/01/17 [History] Albuterol Neb [Proventil Neb] 2.5 mg IH TID 09/22/17 [History] Metoprolol [Lopressor] 12.5 mg PO DAILY 09/22/17 [History] Oxygen 2.5 l NS AD 09/22/17 [History] Potassium Chloride 20 meq PO DAILY 09/22/17 [History] Azithromycin [Zithromax] 500 mg PO DAILY #4 tablet 09/26/17 [Rx] Loratadine [Claritin] 10 mg PO DAILY #30 tablet 09/26/17 [Rx] predniSONE [PredniSONE] 10 mg PO DAILY 8 Days tablet 09/26/17 [Rx] Allergies/Adverse Reactions: 3 Allergy/AdvReac Type Severity Reaction Status Date / Time acetaminophen [From Vicodin] AdvReac Headache Verified 07/15/16 13:34 hydrocodone [From Vicodin] AdvReac Headache Verified 07/15/16 13:34 methylprednisolone AdvReac Itching Verified 04/01/17 09:19 [From Solu-Medrol] Date of admission: 09/22/17 21:33 Primary care physician: Ray Garcia Discharging clinician: Vahid Harrell Anticipated date of discharge: 09/26/17 - Patient Status Disposition: Home, Self-Care Condition: Good Functional capacity at discharge: independent ambulation Overall status at discharge: patient is progressing back to baseline - Discharge Instructions Instructions: Acute Respiratory Distress Syndrome (DC) Follow Up With: Ray Garcia MD [Primary Care Provider] - 10/02/17 9:30 am Connie Rivera MD [Partnered Physician] - 09/29/17 1:00 pm (in 1-2 weeks) - Diet and Activity Activity: wear oxygen at all times Diet: low fat, low cholesterol, low salt diet Hospital course: Ms. Leon is a 61 year old female patient with a history of COPD who presented to the ER with complaints of shortness of breath. She was diagnosed with acute COPD she is on probation and was started on treatment with bronchodilators, intravenous steroids and O2 supplementation. Patient has a history of chronic respiratory failure and is on home oxygen. Her respiratory panel was positive for human metapneumovirus. Her symptoms have slowly improved with aggressive treatment for COPD exacerbation and she is now stable to be discharged home. She will be discharged on a steroid taper and will complete a short course of azithromycin. 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 - Time Spent with Patient Total time spent providing and/or coordinating discharge services: Greater than 30 minutes (32 min) - Constitutional Vitals: Temp Pulse Resp BP Pulse Ox 98.8 F 137 18 122/77 97 09/26/17 07:33 09/26/17 08:34 09/26/17 08:04 09/26/17 07:33 09/26/17 08:04 General appearance: Present: cooperative, mild distress, A&O X 3, pleasant, answers questions appropriately - Neck Neck exam general surgery: Present: supple, trachea midline. Absent: lymphadenopathy - Respiratory Respiratory exam: Present: CTAB, prolonged expiratory phase. Absent: accessory muscle use, rales, rhonchi - Cardiovascular Cardiovascular exam: Present: RRR, +S1, +S2. Absent: diastolic murmur, gallop, rubs, systolic murmur - Extremities Exam Extremities exam: Present: warm, radial pulses palpable and symmetrical. Absent : calf tenderness, cyanotic, pedal edema
== END 2017-09-26 13:00 | disposition home or self-care (01) | DRG 190 ==
LOC: EMEROO 19:28 → 2NNU 21:33 → SUATTDRO 21:33 → 2NNU 22:05
PROVIDERS: ADMIT Pediatrics; ATTEND Internal Medicine

== ENCOUNTER 2017-12-19 07:33 | Inpatient (IN) ==
[2017-12-19] MEDS ORDERED: Ipratropium/Albuterol Neb 3 ML IH ONE (07:38)
[2017-12-19] MEDS ORDERED: methylPREDNISolone 125 MG/2 ML VIAL IVP ONE (07:40)
[2017-12-19 08:10] LABS: Basophils % 0.6 %; Eosinophils # 0.3 K/mcL (0.0-0.6); Eosinophils % 4.4 %; Hematocrit 39.8 % (35.3-44.9); Hemoglobin 12.6 g/dL (11.5-15.4); Immature Granulocytes % 0.1 % (0-4); Lymphocytes # 2.2 K/mcL (0.6-4.6); Lymphocytes % 30.7 %; Mean Corpuscular HGB Conc 31.7 g/dL (31.6-35.5); Mean Corpuscular Hemoglobin 26.8 pg (28.0-33.3); Mean Corpuscular Volume 84.5 fL (83.0-100.0); Mean Platelet Volume 9.3 fL (9.4-12.4); Monocytes # 0.5 K/mcL (0.0-1.3); Monocytes % 7.4 %; Platelet Count 238 K/mcL (140-400); Red Blood Count 4.71 M/mcL (3.82-4.97); Red Cell Distribution Width 14.9 % (11.5-14.5); Segmented Neutrophils % 56.8 %
[2017-12-19 08:24] LABS: BUN/Creatinine Ratio 25 (6-26); Blood Urea Nitrogen 16 mg/dL (8-23); Calcium 9.4 mg/dL (8.6-10.3); Carbon Dioxide 24 mEq/L (23-29); Chloride 106 mEq/L (98-107); Glucose 135 mg/dL (70-105); Osmolality,Calculated 291 (280-300); Sodium 139 mEq/L (136-145); Troponin I < 0.03 ng/mL (< 0.04); eGFR For African Americans > 60 (> 60); eGFR For Non-African Americans > 60 (> 60)
--- NOTE | 2017-12-19 08:25 | Emergency Department Note ---
Disposition Clinical Impression: COPD with acute exacerbation Disposition: Admitted As Inpatient Condition: Fair General Adult HPI - General Chief complaint: ED Shortness of Breath/Dyspnea Stated complaint: ROBER Time Seen by Provider: 12/19/17 07:35 Source: patient, EMS Limitations: no limitations Nursing Notes Reviewed: Yes Vital Signs Reviewed: Yes - History of Present Illness HPI Narrative: Mrs. Leon since from home via EMS for evaluation of dyspnea. Onset progressive over the past 2 days. Not improved with her home nebulizers. She was dyspneic despite her use of her home oxygen which is 2.5 L continuous. She has associated headache with mild weakness. Headache was gradual in onset and similar to her typical headaches. She has no change in cough. She has a history of COPD with recurrent exacerbation patient notes this feels identical to those symptoms. ROS: Positive: As above Negative: Fever, chills, nausea, vomiting, chest pains, palpitations, unusual back pains, vertigo, numbness, tingling Pain Scale: 10 - Related Data Home Medications Medication Instructions Recorded Confirmed Budesonide/Formoterol 160/4.5 2 puff IH BID 06/22/15 12/19/17 [Symbicort] Roflumilast [Daliresp] 500 mcg PO QAM 06/22/15 12/19/17 Albuterol Sulfate [Proair Hfa] 2 puff IH Q4H PRN 07/14/16 12/19/17 Atorvastatin Calcium [Lipitor] 80 mg PO QAM 07/14/16 12/19/17 Sertraline [Zoloft] 50 mg PO DAILY 07/15/16 12/19/17 Aspirin Enteric Coated [Aspirin EC] 81 mg PO DAILY 10/22/16 12/19/17 Cyanocobalamin (Vitamin B-12) 1,000 mcg PO DAILY 10/22/16 12/19/17 [Vitamin B-12] Cyclosporine [Restasis] 1 each OP BID 10/22/16 12/19/17 Ferrous Sulfate 325 mg PO DAILY 10/22/16 12/19/17 Furosemide [Lasix] 20 mg PO DAILY 10/22/16 12/19/17 Guaifenesin [Mucinex] 600 mg PO Q12H PRN 10/22/16 12/19/17 Travoprost [Travatan Z] 1 drop OP QPM 10/22/16 12/19/17 Cyclobenzaprine HCl 10 mg PO HS 04/01/17 12/19/17 Ergocalciferol (VITAMIN D2) 50,000 unit PO QWEEK 04/01/17 12/19/17 [Vitamin D2] Umeclidinium [place] [Incruse 1 puff IH DAILY 04/01/17 12/19/17 Ellipta] Nitroglycerin 0.4 mg PO Q5M PRN 07/08/17 12/19/17 Ezetimibe [Zetia] 10 mg PO DAILY 09/01/17 12/19/17 Albuterol Neb [Proventil Neb] 2.5 mg IH TID 09/22/17 12/19/17 Metoprolol [Lopressor] 12.5 mg PO DAILY 09/22/17 12/19/17 Oxygen 2.5 l NS AD 09/22/17 12/19/17 Potassium Chloride 20 meq PO DAILY 09/22/17 12/19/17 Dapagliflozin Propanediol [Farxiga] 5 mg PO DAILY 12/19/17 12/19/17 Fluticasone Propionate Nasal 1 spray NS DAILY 12/19/17 12/19/17 [Flonase] Previous Rx's Medication Instructions Recorded metFORMIN [Glucophage] 500 mg PO BIDWM #60 tablet 10/27/16 Loratadine [Claritin] 10 mg PO DAILY #30 tablet 09/26/17 Allergies Allergy/AdvReac Type Severity Reaction Status Date / Time acetaminophen [From Vicodin] AdvReac Headache Verified 07/15/16 13:34 hydrocodone [From Vicodin] AdvReac Headache Verified 07/15/16 13:34 methylprednisolone AdvReac Itching Verified 04/01/17 09:19 [From Solu-Medrol] All systems ED: reviewed and negative except as stated. Review of Systems: As Per HPI Past Medical History - Past Medical History Medical history: Reports: COPD, diabetes, GERD, glaucoma, hyperlipidemia, hypertension, other Surgical history: Reports: cataract, hysterectomy 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: Reports: anxiety, depression BANDER history: Reports: other - Social History Smoking Status: Former smoker Smokeless Tobacco Status: No Alcohol use: Reports: none Drug use: Reports: none Physical Exam Vital Signs Reviewed General: Patient is alert, oriented, and in respiratory distress - tachypneic, accessory muscle use, on supplemental oxygen Head: atraumatic, normocephalic Eye: normal appearance, no scleral icterus, no conjunctival injection ENT: mucous membranes moist, normal external ear exam Neck: normal inspection, trachea midline, full ROM Chest: normal inspection, symmetric chest rise Respiratory: Good respiratory effort. Prolonged three-phase. Bilateral breath sounds are diminished with diffuse coarse wheeze; no crackles or rhonchi. Cardiovascular: Cardiac rate and regular rhythm. No clicks, rubs, gallops, or murmors. Normal heart sounds. Bilateral radial posterior tibial pulses 2/4 and equal. No pedal edema. Abdomen: Bowel sounds present normoactive x-4 quadrants. Abdomen is soft, nondistended, and nontender. No guarding or rebound. Musculoskeletal: Spontaneously moving all extremities. Skin: warm, dry, intact. Neuro: Alert and oriented x4. Sensation light touch intact. Psych: Patient's affect is appropriate for situation. - General Limitations: no limitations General appearance: alert, in no apparent distress Course Course Narrative: Patient presents in concerning restaurant distress which has been resistant to her home oxygen and home nebulizers. She is multiple admissions for exacerbations of COPD and notes her symptoms today feel identical to her symptoms at that time. EKG shows no acute ischemic changes. Chest x-ray shows no evidence of pneumonia which agrees with physical exam. We will manage as acute exacerbation of COPD. She subjectively feels mildly better after a triple dose of DuoNeb's however remains tachycardic. Her tachypnea has improved with her breathing about 18/m. Of concern, is her persistent tachycardia, mild hypotension with systolic of 101, she is diaphoretic with a leukocoria in her eyes. We will begin Levaquin and admit. EKG dated 19 Dec 2017 at 07:44 interpreted as sinus tachycardia with a rate of 108. Normal intervals. Normal axis. Nonspecific ST-T changes. Compared to previous dated 09/22/2017 showing no acute ischemic changes or comparison. Chest X-Ray 12/19/17 07:39 IMPRESSION: No evidence for acute cardiopulmonary process. D/ / Juan Carlos Hutton MD / Juan aCrlos Hutton MD Interpreting Provider: Juan Carlos Hutton MD Vital Signs Temperature 98.5 F 12/19/17 07:35 Pulse Rate 110 12/19/17 07:35 Respiratory Rate 24 12/19/17 07:35 Blood Pressure 111/72 12/19/17 07:35 O2 Sat by Pulse Oximetry 95 12/19/17 07:35 Temperature 98.5 F 12/19/17 07:35 Pulse Rate 97 12/19/17 09:37 Respiratory Rate 18 12/19/17 10:08 Blood Pressure 98/80 12/19/17 10:08 O2 Sat by Pulse Oximetry 94 12/19/17 09:37 Oxygen Delivery Oxygen Delivery Nasal Cannula Medical Decision Making - Lab Data Result diagrams: 12/19/17 07:57 12/19/17 07:57 Lab Results 12/19/17 12/19/17 Range/Units 07:57 07:57 WBC 7.1 (4.3-11.1) K/mcL RBC 4.71 (3.82-4.97) M/mcL Hgb 12.6 (11.5-15.4) g/dL Hct 39.8 (35.3-44.9) % MCV 84.5 (83.0-100.0) fL MCH 26.8 L (28.0-33.3) pg MCHC 31.7 (31.6-35.5) g/dL RDW 14.9 H (11.5-14.5) % Plt Count 238 (140-400) K/mcL MPV 9.3 L (9.4-12.4) fL Immature Gran % 0.1 (0-4) % Seg Neutrophils % 56.8 % Lymphocytes % 30.7 % Monocytes % 7.4 % Eosinophils % 4.4 % Basophils % 0.6 % Neutrophils # 4.0 (1.6-8.9) K/mcL Lymphocytes # 2.2 (0.6-4.6) K/mcL Monocytes # 0.5 (0.0-1.3) K/mcL Eosinophils # 0.3 (0.0-0.6) K/mcL Basophils # 0.0 (0.0-0.2) K/mcL Sodium 139 (136-145) mEq/L Potassium 4.0 (3.5-5.1) mEq/L Chloride 106 (98-107) mEq/L Carbon Dioxide 24 (23-29) mEq/L BUN 16 (8-23) mg/dL Creatinine 0.63 (0.60-1.20) mg/dL Est GFR ( Amer) > 60 (> 60) Est GFR (Non-Af Amer) > 60 (> 60) BUN/Creatinine Ratio 25 (6-26) Glucose 135 H (70-105) mg/dL Calculated Osmolality 291 (280-300) Calcium 9.4 (8.6-10.3) mg/dL Troponin I < 0.03 (< 0.04) ng/mL Attestation Statement - Attestation Attestation: I examined this patient and my medical decision-making was reviewed with the GOLF COURSE EQUIPMENT OPERATOR/PA/Advanced Practice Nurse/Resident Physician. I agree with the documented findings, disposition and treatment plan as described except to the extent set forth below. The H&H and presents with shortness of breath worse for the last 4 days, she does have a history of COPD and does use home oxygen, bilateral symmetric wheezing, no complaint of chest pain. No pain or swelling of the lower extremities, no recent weight gain. Symptoms most consistent with COPD exacerbation and she is given solumedrol IV with Benadryl as she says this helps with her itching and she refuses combination many times in the past. Additionally she is given DuoNeb's. Chest x-ray pending. [id number] I did review the EKG showing sinus tachycardia with a rate of 108 and without evidence of ischemic change 1001
[2017-12-19] MEDS ORDERED: Levofloxacin 750 MG/150 ML 750 MG/150 ML BAG IVPB ONE (09:11)
[2017-12-19] MEDS: 0.9 % Sodium Chloride 1,000 ML IVC SCH ×2 (09:15→11:35)
[2017-12-19] MEDS ORDERED: Naloxone 0.4 MG/ML INJ IVP PRN (10:02)
[2017-12-19] MEDS ORDERED: *HR* HYDROcodone/Acet 5/325 mg TABLET PO PRN (10:02)
[2017-12-19] MEDS ORDERED: Nitroglycerin 0.4 MG TAB.SUBL SL PRN (10:04)
--- NOTE | 2017-12-19 10:13 | Internal Med History&Physical ---
Date of Encounter: 12/19/17 Time of Encounter: 10:10 Internal Medicine - H&P: HPI Chief complaint: shortness of breath Admitted From: Emergency Dept Plans for Post Hospital Care: Home History of present illness: Ms. Leon is a 62 year old female who has a past medical history of for diabetes mellitus, hypertension, hyperlipidemia, COPD with oxygen dependent, GERD and glaucoma. Patient has ongoing shortness of breath for past 4 days. It was noted that patient's sister was living with her and since she came from out of the town patient decided to spend some time with her sister and delayed herself care for her underlying COPD. Patient was persistently coughing for the past 4 days with the worsening shortness of breath. Patient claims that there change in color of her expectoration. Patient also claims that she barely walks 3-4 feet in her house. It was a difficulty for patient to transfer from bed to bathroom. In view of persistent deterioration patient called squad. Patient denies fever, chills, vomiting, palpitation, any back pain vertigo numbness or dizziness or diarrhea. Workup in the emergency room: Patient was evaluated in the emergency room. Baseline labs were drawn. Chest x-ray was done. Reason for admission: Acute exacerbation of COPD which requires intravenous steroids/antibiotics and close monitoring of the respiratory status in view of possible anticipation of intubation. Family history: Non-contributing Past Med Surg Social Fam HX - Past Medical History Medical history: COPD, diabetes, GERD, glaucoma, hyperlipidemia, hypertension, other 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: anxiety, depression - Past Surgical History Surgical History: cataract, hysterectomy - Social History Smoking Status: Former smoker Smokeless Tobacco Status: No Alcohol use: none Drug use: none - Family History Mother Adopted: No Living Status: Hx Family Cancer: Yes (Pancreatic cancer) Father Living Status: Hx Family Cardiac Disorders: Yes Hx Family Endocrine Disorder: Yes (Diabetes) Internal Medicine - H&P: Meds Budesonide/Formoterol 160/4.5 [Symbicort] 2 puff IH BID 06/22/15 [History] Roflumilast [Daliresp] 500 mcg PO QAM 06/22/15 [History] Albuterol Sulfate [Proair Hfa] 2 puff IH Q4H PRN 07/14/16 [History] Atorvastatin Calcium [Lipitor] 80 mg PO QAM 07/14/16 [History] Sertraline [Zoloft] 50 mg PO DAILY 07/15/16 [History] Aspirin Enteric Coated [Aspirin EC] 81 mg PO DAILY 10/22/16 [History] Cyanocobalamin (Vitamin B-12) [Vitamin B-12] 1,000 mcg PO DAILY 10/22/16 [ History] Cyclosporine [Restasis] 1 each OP BID 10/22/16 [History] Ferrous Sulfate 325 mg PO DAILY 10/22/16 [History] Furosemide [Lasix] 20 mg PO DAILY 10/22/16 [History] Guaifenesin [Mucinex] 600 mg PO Q12H PRN 10/22/16 [History] Travoprost [Travatan Z] 1 drop OP QPM 10/22/16 [History] metFORMIN [Glucophage] 500 mg PO BIDWM #60 tablet 10/27/16 [Rx] Cyclobenzaprine HCl 10 mg PO HS 04/01/17 [History] Ergocalciferol (VITAMIN D2) [Vitamin D2] 50,000 unit PO QWEEK 04/01/17 [History] Umeclidinium [place] [Incruse Ellipta] 1 puff IH DAILY 04/01/17 [History] Nitroglycerin 0.4 mg PO Q5M PRN 07/08/17 [History] Ezetimibe [Zetia] 10 mg PO DAILY 09/01/17 [History] Albuterol Neb [Proventil Neb] 2.5 mg IH TID 09/22/17 [History] Metoprolol [Lopressor] 12.5 mg PO DAILY 09/22/17 [History] Oxygen 2.5 l NS AD 09/22/17 [History] Potassium Chloride 20 meq PO DAILY 09/22/17 [History] Loratadine [Claritin] 10 mg PO DAILY #30 tablet 09/26/17 [Rx] Dapagliflozin Propanediol [Farxiga] 5 mg PO DAILY 12/19/17 [History] Fluticasone Propionate Nasal [Flonase] 1 spray NS DAILY 12/19/17 [History] 3 Allergy/AdvReac Type Severity Reaction Status Date / Time acetaminophen [From Vicodin] AdvReac Headache Verified 07/15/16 13:34 hydrocodone [From Vicodin] AdvReac Headache Verified 07/15/16 13:34 methylprednisolone AdvReac Itching Verified 04/01/17 09:19 [From Solu-Medrol] All Systems PM: A 10-system review of systems was performed and is negative for pertinent findings except as documented above in the HPI. - Constitutional Constitutional: no chills, no fever(s), no night sweats - EENT Eyes: no change in vision, no discharge, no pain, no photophobia Ears: no ear discharge, no ear pain, no tinnitus Nose, mouth and throat: no dysphagia, no nasal discharge, no neck pain, no sore throat - Cardiovascular Cardiovascular ROS IM: dyspnea, dyspnea on exertion, no chest pain, no diaphoresis, no lightheadedness, no palpitations, no syncope - Respiratory Respiratory: excessive phlegm production, change in phlegm color, no cough, no dyspnea, no wheezing - Gastrointestinal Gastrointestinal: no abdominal pain, no diarrhea, no hematemesis, no hematochezia, no melena, no nausea, no vomiting - Genitourinary Genitourinary: no change in urinary stream, no dysuria, no flank pain, no hematuria - Musculoskeletal Musculoskeletal ROS IM: no numbness, no tingling - Integumentary Integumentary IM: no rash, no unusual bruising - Neurological Neurological ROS: no confusion, no convulsions, no focal weakness, no numbness, no tingling, no tremor(s) - Hematologic/Lymphatic Hematologic/Lymphatic: no easy bruising - Constitutional Vitals: Temp Pulse Resp BP Pulse Ox 98.5 F 97 18 98/80 94 12/19/17 07:35 12/19/17 09:37 12/19/17 10:08 12/19/17 10:08 12/19/17 09:37 General appearance: Present: A&O X 3, pleasant, no acute distress, answers questions appropriately - Head Head exam: Present: atraumatic, normocephalic - Eye Eye exam: Present: PERRL, conjuntiva pink, sclera anicteric Pupils: Present: PERRL - Neck Neck exam general surgery: Present: supple, trachea midline. Absent: lymphadenopathy - Respiratory Respiratory exam: Present: CTAB, prolonged expiratory phase, rhonchi, wheezes. Absent: accessory muscle use, rales - Cardiovascular Cardiovascular exam: Present: RRR, +S1, +S2. Absent: diastolic murmur, gallop, rubs, systolic murmur - GI/Abdominal GI/Abdominal exam: Present: normal bowel sounds, soft, no peritoneal signs. Absent: distended, tenderness - Extremities Exam Extremities exam: Present: warm, radial pulses palpable and symmetrical. Absent : calf tenderness, cyanotic, pedal edema - Neurological Exam Neurological exam: Present: CN II-XII intact, oriented X3, no focal deficits. Absent: pronater drift, facial droop, speech deficit - Skin Skin exam: Present: dry, intact Internal Med - H&P Results - Labs CBC & Chem 7: 12/19/17 07:57 12/19/17 07:57 - Assessment and plan (1) Acute exacerbation of chronic obstructive airways disease Current Visit: No Status: Chronic Assessment and plan: 62/female Known to have a stage IV Gold COPD. 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 Was seen by pulmonology last month. Recent hospitalization for COPD 09/22/2017. Assessment: Acute exacerbation of COPD. Plan: Admit as inpatient. Diabetic diet. Antibiotics: Levofloxacin: 750 mg every 24 hours. Steroids: Solu-Medrol: 40 mg every 8 hours. Bronchodilators: DuoNeb: Every 4 hours. Close monitoring of the respiratory status. I examined this patient in the emergency room #2. I have explained plan of care to the patient. She verbalized understanding. (2) Essential hypertension Current Visit: No Status: Chronic Assessment and plan: Patient is known to have a habit precipitated We will continue the home medication for blood pressure. We will monitor her blood pressure very closely. (3) Type 2 diabetes mellitus Current Visit: No Status: Chronic Assessment and plan: Condition is known to have a type 2 diabetes mellitus. At this point patient has a blood sugar in a acceptable range. We will follow the orders from the subcutaneous tenderness insulin order set. Qualifiers: Diabetes mellitus senior care insulin use: without intermediate designer use Diabetes mellitus complication status: with hyperglycemia Qualified Code(s): E11.65 - Type 2 diabetes mellitus with hyperglycemia (4) DVT prophylaxis Current Visit: No Status: Acute Assessment and plan: Heparin Medical decision making: This patient has a moderate to severe risk of worsening in spite of being on appropriate medication due to the underlying complex medical condition. - Time Spent With Patient Total time spent is greater than 50% in coordination of care (as documented) at patient's floor/unit and/or counseling patient:
[2017-12-19] MEDS ORDERED: NON-FORMULARY MEDICATION 1 EACH EACH (Oxygen [Oxygen] 2.5 L) NS SCH (10:15)
[2017-12-19] MEDS ORDERED: Dextrose Gel 15 GM/37.5 ML TUBE PO PRN ×2 (10:20)
[2017-12-19] MEDS ORDERED: D5% in Water 1,000 ML IVC PRN (10:20)
[2017-12-19] MEDS ORDERED: *HR* Dextrose 50 % in Water (Syg) 50 ML SYRINGE IVP PRN (10:20)
[2017-12-19] MEDS: Ipratropium/Albuterol Neb 3 ML IH SCH ×4 (11:08→23:42)
[2017-12-19] MEDS: Insulin LISPRO 300 UNITS/3 ML VIAL SQ SCH ×2 (12:34→16:51)
[2017-12-19] MEDS: *HR* Heparin 5,000 UNIT/ML VIAL SQ SCH ×2 (16:51→23:53)
[2017-12-19] MEDS: MethylPREDNISolone 40 MG/ML VIAL IVP SCH ×2 (16:51→23:55)
[2017-12-19] MEDS: (Travoprost [Travatan Z] 1 DROP) OP SCH (16:51)
[2017-12-19] MEDS: (Cyclosporine [Restasis] 1 EACH) OP SCH (21:17)
[2017-12-20 01:45] LABS: Basophils % 0.1 %; Hematocrit 38.9 % (35.3-44.9); Hemoglobin 12.4 g/dL (11.5-15.4); Immature Granulocytes % 0.5 % (0-4); Lymphocytes # 0.6 K/mcL (0.6-4.6); Lymphocytes % 7.2 %; Mean Corpuscular HGB Conc 31.9 g/dL (31.6-35.5); Mean Corpuscular Hemoglobin 27.3 pg (28.0-33.3); Mean Corpuscular Volume 85.7 fL (83.0-100.0); Mean Platelet Volume 9.4 fL (9.4-12.4); Monocytes # 0.1 K/mcL (0.0-1.3); Monocytes % 1.3 %; Neutrophils # 7.9 K/mcL (1.6-8.9); Platelet Count 245 K/mcL (140-400); Red Blood Count 4.54 M/mcL (3.82-4.97); Segmented Neutrophils % 90.9 %
[2017-12-20 01:53] LABS: INR 1.1; Prothrombin Time 11.5 Seconds (9.4-12.1)
[2017-12-20 01:56] LABS: Activated Partial Thrombo Time 25.7 Seconds (26.0-36.0)
[2017-12-20 02:13] LABS: Alanine Aminotransferase 21 Units/L (7-52); Albumin 4.1 g/dL (3.5-5.7); Albumin/Globulin Ratio 1.6 (1.1-2.2); Alkaline Phosphatase 36 Units/L (34-104); Aspartate Amino Transferase 16 Units/L (13-39); BUN/Creatinine Ratio 22 (6-26); Bilirubin,Total 0.3 mg/dL (0.3-1.0); Blood Urea Nitrogen 18 mg/dL (8-23); Calcium 9.4 mg/dL (8.6-10.3); Carbon Dioxide 23 mEq/L (23-29); Chloride 105 mEq/L (98-107); Chol/HDL Ratio 3.7 (0-4.9); Cholesterol 205 mg/dL (< 200); Globulin 2.6 g/dL (2.4-3.5); Glucose 233 mg/dL (70-105); HDL Cholesterol 56 mg/dL (40-59); LDL Cholesterol,Calculated 132 mg/dL (0-99); Osmolality,Calculated 295 (280-300); Phosphorous 3.4 mg/dL (2.7-4.5); Potassium 4.2 mEq/L (3.5-5.1); Sodium 138 mEq/L (136-145); Total Protein 6.7 g/dL (6.4-8.9); Triglycerides 87 mg/dL (< 150); eGFR For African Americans > 60 (> 60); eGFR For Non-African Americans > 60 (> 60)
[2017-12-20] MEDS: Ipratropium/Albuterol Neb 3 ML IH SCH ×5 (03:26→19:53)
--- NOTE | 2017-12-20 06:38 | Electrocardiograph Report ---
[address] [place] [address] Test Date: 2017-12-19 Pat Name: Geri Leon Department: 103 Room: 3B48 Gender: F Slipcover Cutter: MSC : [id number] Requested By: Zac Jamison Order Number: [id number] Reading MD: Devon Santiago Measurements Intervals [place] Rate: 108 P: 91 VT: 120 QRS: 44 QRSD: 86 T: 63 QT: 337 QTc: 400 Interpretive Statements SINUS TACHYCARDIA BASELINE ARTIFACT Electronically Signed On 12-20-2017 6:36:49 EDT by Devon Santiago
[2017-12-20] MEDS ORDERED: Levofloxacin 750 MG/150 ML 750 MG/150 ML BAG IVPB SCH (09:00)
[2017-12-20] MEDS: *HR* Heparin 5,000 UNIT/ML VIAL SQ SCH ×2 (09:45→17:06)
[2017-12-20] MEDS: MethylPREDNISolone 40 MG/ML VIAL IVP SCH ×2 (09:46→17:06)
[2017-12-20] MEDS: Insulin LISPRO 300 UNITS/3 ML VIAL SQ SCH ×4 (09:46→20:54)
[2017-12-20] MEDS: Furosemide 20 MG TABLET PO SCH (09:46)
[2017-12-20] MEDS: Aspirin Enteric Coated 81 MG Tablet PO SCH (09:47)
[2017-12-20] MEDS: Cyanocobalamin (B-12) 1,000 MCG TABLET PO SCH (09:47)
[2017-12-20] MEDS: (Cyclosporine [Restasis] 1 EACH) OP SCH ×2 (09:48→20:47)
[2017-12-20] MEDS: (Dapagliflozin Propanediol [Farxiga] 5 MG) PO SCH (09:48)
[2017-12-20] MEDS: (Ezetimibe [Zetia] 10 MG) PO SCH (09:48)
[2017-12-20] MEDS: (Umeclidinium Bromide [Incruse Ellipta] 1 PUFF) IH SCH (09:49)
[2017-12-20] MEDS: (Roflumilast [Daliresp] 500 MCG) PO SCH (09:49)
--- NOTE | 2017-12-20 16:40 | Internal Med Progress Note ---
Date of Encounter: 12/20/17 Time of Encounter: 16:38 - Assessment and plan (1) Acute exacerbation of chronic obstructive airways disease Current Visit: No Status: Chronic Assessment and plan: per hx. Has known stage IV Gold COPD with chronic respiratory failure, on oxygen at home. Dramatic with worsening shortness of breath and diffuse wheezing. CXR without infiltrates. Continue IV Levaquin, steroids and bronchodilators. Urinary antigens, respiratory PCR pending. With intermittent hypotension and tachycardia which is likely secondary to bronchodilators however will check chest CTA to rule out pulmonary embolism. (2) Essential hypertension Current Visit: No Status: Chronic Assessment and plan: Patient is known to have a habit precipitated We will continue the home medication for blood pressure. We will monitor her blood pressure very closely. (3) Type 2 diabetes mellitus Current Visit: No Status: Chronic Assessment and plan: per hx. Blood sugars elevated likely secondary to steroids. Increase SSI to medium scale. Monitor blood sugar and titrate PRN Qualifiers: Diabetes mellitus [facility] insulin use: without terminal supervisor use Diabetes mellitus complication status: with hyperglycemia Qualified Code(s): E11.65 - Type 2 diabetes mellitus with hyperglycemia (4) DVT prophylaxis Current Visit: No Status: Acute Assessment and plan: Heparin. - Time Spent With Patient Total time spent is greater than 50% in coordination of care (as documented) at patient's floor/unit and/or counseling patient: - Subjective Interval history: Seen and examined at bedside. Patient is new to me, information obtained from chart review and patient report. Still with complaint of shortness of breath gets worse with exertion but overall improved. Has a nonproductive cough. No fevers or chills. - Constitutional Vitals: Temp Pulse Resp BP Pulse Ox 98.2 F 101 18 107/66 93 12/20/17 15:50 12/20/17 15:50 12/20/17 15:50 12/20/17 15:50 12/20/17 15:50 General appearance: Present: A&O X 3, pleasant, no acute distress, answers questions appropriately - Head Head exam: Present: atraumatic, normocephalic - Eye Eye exam: Present: PERRL, conjuntiva pink, sclera anicteric Pupils: Present: PERRL - Neck Neck exam general surgery: Present: supple, trachea midline. Absent: lymphadenopathy - Respiratory Respiratory exam: Present: CTAB, wheezes. Absent: accessory muscle use, rales, rhonchi - Cardiovascular Cardiovascular exam: Present: RRR, +S1, +S2, tachycardia. Absent: diastolic murmur, gallop, rubs, systolic murmur - GI/Abdominal GI/Abdominal exam: Present: normal bowel sounds, soft, no peritoneal signs. Absent: distended, tenderness - Extremities Exam Extremities exam: Present: warm, radial pulses palpable and symmetrical. Absent : calf tenderness, cyanotic, pedal edema - Neurological Exam Neurological exam: Present: CN II-XII intact, oriented X3, no focal deficits. Absent: pronater drift, facial droop, speech deficit - Skin Skin exam: Present: dry, intact Internal Medicine: Result - Labs CBC & Chem 7: 12/20/17 01:15 12/20/17 01:15 Labs: Short CBC 12/20/17 Range/Units 01:15 WBC 8.7 (4.3-11.1) K/mcL Hgb 12.4 (11.5-15.4) g/dL Hct 38.9 (35.3-44.9) % Plt Count 245 (140-400) K/mcL Neutrophils # 7.9 (1.6-8.9) K/mcL BMP 12/20/17 01:15 Sodium 138 Potassium 4.2 Chloride 105 Carbon Dioxide 23 BUN 18 Creatinine 0.83 Glucose 233 H Calcium 9.4 Cardiac Enzymes 12/19/17 12/20/17 Range/Units 19:59 01:15 Troponin I < 0.03 < 0.03 (< 0.04) ng/mL Liver Function 12/20/17 Range/Units 01:15 Total Bilirubin 0.3 (0.3-1.0) mg/dL AST 16 (13-39) Units/L ALT 21 (7-52) Units/L Alkaline Phosphatase 36 (34-104) Units/L Albumin 4.1 (3.5-5.7) g/dL - ABG Interpretation ABG results: PT/INR, D-dimer PT 11.5 Seconds (9.4-12.1) 12/20/17 01:15 Consult Discharge Plan - Plan Referrals: Ray Garcia MD [Primary Care Provider] -
[2017-12-20] MEDS ORDERED: Isovue-370 500 ML INFUS..BTL IV ONE (16:43)
[2017-12-20] MEDS: (Travoprost [Travatan Z] 1 DROP) OP SCH ×2 (17:06→20:54)
[2017-12-21] MEDS: MethylPREDNISolone 40 MG/ML VIAL IVP SCH ×3 (00:25→16:02)
[2017-12-21] MEDS: *HR* Heparin 5,000 UNIT/ML VIAL SQ SCH ×3 (00:28→16:02)
[2017-12-21] MEDS: Ipratropium/Albuterol Neb 3 ML IH SCH ×6 (00:44→20:20)
[2017-12-21 07:14] LABS: Hematocrit 37.8 % (35.3-44.9); Mean Corpuscular HGB Conc 31.7 g/dL (31.6-35.5); Mean Corpuscular Hemoglobin 26.9 pg (28.0-33.3); Mean Corpuscular Volume 84.8 fL (83.0-100.0); Mean Platelet Volume 9.5 fL (9.4-12.4); Platelet Count 249 K/mcL (140-400); Red Blood Count 4.46 M/mcL (3.82-4.97); Red Cell Distribution Width 15.4 % (11.5-14.5)
[2017-12-21] MEDS ORDERED: Insulin LISPRO 300 UNITS/3 ML VIAL SQ SCH (07:30)
[2017-12-21 07:35] LABS: BUN/Creatinine Ratio 41 (6-26); Blood Urea Nitrogen 24 mg/dL (8-23); Calcium 9.4 mg/dL (8.6-10.3); Carbon Dioxide 26 mEq/L (23-29); Chloride 106 mEq/L (98-107); Glucose 222 mg/dL (70-105); Osmolality,Calculated 301 (280-300); Potassium 4.3 mEq/L (3.5-5.1); Sodium 140 mEq/L (136-145); eGFR For African Americans > 60 (> 60); eGFR For Non-African Americans > 60 (> 60)
[2017-12-21 08:26] LABS: Adenovirus Not Detected (Not Detect); Bordetella Pertussis Not Detected (Not Detect); Chlamydophila pneumoniae Not Detected (Not Detect); Coronavirus 229E Not Detected (Not Detect); Coronavirus HKU1 Not Detected (Not Detect); Coronavirus NL63 Not Detected (Not Detect); Coronavirus OC43 Not Detected (Not Detect); Human Metapneumovirus Not Detected (Not Detect); Human Rhinovirus/Enterovirus Not Detected (Not Detect); Influenza A Subtype 2009 H1 Not Detected (Not Detect); Influenza A Untypeable Not Detected (Not Detect); Influenza B Not Detected (Not Detect); Mycoplasma pneumoniae Not Detected (Not Detect); Parainfluenza Virus 1 Not Detected (Not Detect); Parainfluenza Virus 2 Not Detected (Not Detect); Parainfluenza Virus 3 Not Detected (Not Detect); Parainfluenza Virus 4 Not Detected (Not Detect); Respiratory Syncytial Virus Not Detected (Not Detect)
[2017-12-21] MEDS: Cyanocobalamin (B-12) 1,000 MCG TABLET PO SCH (08:37)
[2017-12-21] MEDS: Furosemide 20 MG TABLET PO SCH (08:37)
[2017-12-21] MEDS: Aspirin Enteric Coated 81 MG Tablet PO SCH (08:37)
[2017-12-21] MEDS: (Dapagliflozin Propanediol [Farxiga] 5 MG) PO SCH (08:42)
[2017-12-21] MEDS: (Cyclosporine [Restasis] 1 EACH) OP SCH ×2 (08:42→23:59)
[2017-12-21] MEDS: (Ezetimibe [Zetia] 10 MG) PO SCH (08:42)
[2017-12-21] MEDS: (Umeclidinium Bromide [Incruse Ellipta] 1 PUFF) IH SCH (08:43)
[2017-12-21] MEDS: (Roflumilast [Daliresp] 500 MCG) PO SCH (08:43)
[2017-12-21] MEDS: Insulin LISPRO 300 UNITS/3 ML VIAL SQ SCH ×4 (08:44→20:38)
--- NOTE | 2017-12-21 15:22 | Internal Med Progress Note ---
Date of Encounter: 12/21/17 Time of Encounter: 15:21 - Assessment and plan (1) Acute exacerbation of chronic obstructive airways disease Current Visit: No Status: Chronic Assessment and plan: per hx. Has known stage IV Gold COPD with chronic respiratory failure, on oxygen at home. Symptomatic with worsening shortness of breath and diffuse wheezing. CXR without infiltrates. Urinary antigens, respiratory PCR negative. WBC 14K on 5/6 Tiona secondary to steroids. Continue IV Levaquin, steroids and bronchodilators. (2) Essential hypertension Current Visit: No Status: Chronic Assessment and plan: per hx. BP controlled. Cont home BP medications. Monitor BP and titrate PRN (3) Type 2 diabetes mellitus Current Visit: No Status: Chronic Assessment and plan: per hx. Blood sugars elevated likely secondary to steroids. Increase SSI to medium scale. Monitor blood sugar and titrate PRN Qualifiers: Diabetes mellitus oysterman insulin use: without detention use Diabetes mellitus complication status: with hyperglycemia Qualified Code(s): E11.65 - Type 2 diabetes mellitus with hyperglycemia (4) DVT prophylaxis Current Visit: No Status: Acute Assessment and plan: Heparin. - Time Spent With Patient Total time spent is greater than 50% in coordination of care (as documented) at patient's floor/unit and/or counseling patient: - Subjective Interval history: Seen and examined at bedside. Still with shortness of breath but overall improved. She has a productive cough but feels like he gets is getting stuck in her throat requesting Mucinex. No chest pain. - Constitutional Vitals: Temp Pulse Resp BP Pulse Ox 98.4 F 103 15 111/71 92 12/21/17 15:09 12/21/17 15:09 12/21/17 15:09 12/21/17 15:09 12/21/17 15:09 General appearance: Present: A&O X 3, pleasant, no acute distress, answers questions appropriately - Head Head exam: Present: atraumatic, normocephalic - Eye Eye exam: Present: PERRL, conjuntiva pink, sclera anicteric Pupils: Present: PERRL - Neck Neck exam general surgery: Present: supple, trachea midline. Absent: lymphadenopathy - Respiratory Respiratory exam: Present: CTAB, wheezes. Absent: accessory muscle use, rales, rhonchi - Cardiovascular Cardiovascular exam: Present: RRR, +S1, +S2. Absent: diastolic murmur, gallop, rubs, systolic murmur - GI/Abdominal GI/Abdominal exam: Present: normal bowel sounds, soft, no peritoneal signs. Absent: distended, tenderness - Extremities Exam Extremities exam: Present: warm, radial pulses palpable and symmetrical. Absent : calf tenderness, cyanotic, pedal edema - Neurological Exam Neurological exam: Present: CN II-XII intact, oriented X3, no focal deficits. Absent: pronater drift, facial droop, speech deficit - Skin Skin exam: Present: dry, intact Internal Medicine: Result - Labs CBC & Chem 7: 12/21/17 06:50 12/21/17 06:50 Labs: Short CBC 12/21/17 Range/Units 06:50 WBC 14.7 H D (4.3-11.1) K/mcL Hgb 12.0 (11.5-15.4) g/dL Hct 37.8 (35.3-44.9) % Plt Count 249 (140-400) K/mcL BMP 12/21/17 06:50 Sodium 140 Potassium 4.3 Chloride 106 Carbon Dioxide 26 BUN 24 H Creatinine 0.59 L Glucose 222 H Calcium 9.4 - ABG Interpretation ABG results: PT/INR, D-dimer PT 11.5 Seconds (9.4-12.1) 12/20/17 01:15 - Impressions Impressions Chest CTA 12/20/17 16:43 IMPRESSION: No evidence of pulmonary embolism or acute pulmonary abnormality. No significant change compared to prior CT. Stable lung nodules, measuring up to 8 mm in the right middle lobe. Moderate atherosclerotic disease of the thoracic aorta, most at the arch, causing at least 50% stenosis of the origin of the left subclavian artery. D/ / 12/20/2017 18:46:33 Ramy Viveros MD / Nicolle Tena Interpreting Provider: Ramy Viveros MD Consult Discharge Plan - Plan Referrals: Ray [facility] MD [Primary Care Provider] -
[2017-12-21] MEDS ORDERED: Latanoprost 2.5 ML BOTTLE BOTH EYES SCH (18:00)
[2017-12-21] MEDS: Levofloxacin 750 MG/150 ML 750 MG/150 ML BAG IVPB SCH (18:10)
[2017-12-21] MEDS: Latanoprost 2.5 ML BOTTLE BOTH EYES SCH (20:37)
[2017-12-22] MEDS: MethylPREDNISolone 40 MG/ML VIAL IVP SCH ×4 (00:03→22:46)
[2017-12-22] MEDS: *HR* Heparin 5,000 UNIT/ML VIAL SQ SCH ×4 (00:03→22:45)
[2017-12-22] MEDS: Ipratropium/Albuterol Neb 3 ML IH SCH ×7 (00:51→23:47)
[2017-12-22 08:15] LABS: BUN/Creatinine Ratio 47 (6-26); Blood Urea Nitrogen 27 mg/dL (8-23); Calcium 9.6 mg/dL (8.6-10.3); Carbon Dioxide 27 mEq/L (23-29); Chloride 103 mEq/L (98-107); Glucose 215 mg/dL (70-105); Osmolality,Calculated 300 (280-300); Potassium 4.5 mEq/L (3.5-5.1); Sodium 139 mEq/L (136-145); eGFR For African Americans > 60 (> 60); eGFR For Non-African Americans > 60 (> 60)
[2017-12-22 08:27] LABS: Hematocrit 38.8 % (35.3-44.9); Hemoglobin 12.1 g/dL (11.5-15.4); Mean Corpuscular HGB Conc 31.2 g/dL (31.6-35.5); Mean Corpuscular Hemoglobin 26.7 pg (28.0-33.3); Mean Corpuscular Volume 85.7 fL (83.0-100.0); Platelet Count 260 K/mcL (140-400); Red Blood Count 4.53 M/mcL (3.82-4.97); Red Cell Distribution Width 15.4 % (11.5-14.5)
[2017-12-22] MEDS: Insulin LISPRO 300 UNITS/3 ML VIAL SQ SCH ×5 (08:54→21:05)
[2017-12-22] MEDS: Levofloxacin 750 MG/150 ML 750 MG/150 ML BAG IVPB SCH (08:54)
[2017-12-22] MEDS: Aspirin Enteric Coated 81 MG Tablet PO SCH (08:56)
[2017-12-22] MEDS: Furosemide 20 MG TABLET PO SCH (08:57)
[2017-12-22] MEDS: (Cyclosporine [Restasis] 1 EACH) OP SCH ×2 (08:57→21:06)
[2017-12-22] MEDS: Cyanocobalamin (B-12) 1,000 MCG TABLET PO SCH (08:57)
--- NOTE | 2017-12-22 13:04 | Internal Med Progress Note ---
Date of Encounter: 12/22/17 Time of Encounter: 13:02 - Assessment and plan (1) Acute exacerbation of chronic obstructive airways disease Current Visit: No Status: Chronic Assessment and plan: per hx. Has known stage IV Gold COPD with chronic respiratory failure, on oxygen at home. Symptomatic with worsening shortness of breath and diffuse wheezing. CXR without infiltrates. Urinary antigens, respiratory PCR negative. Elevated WBC likely secondary to steroids. Continue IV Levaquin, steroids and bronchodilators. (2) Essential hypertension Current Visit: No Status: Chronic Assessment and plan: per hx. BP controlled. Cont home BP medications. Monitor BP and titrate PRN (3) Type 2 diabetes mellitus Current Visit: No Status: Chronic Assessment and plan: per hx. Blood sugars elevated likely secondary to steroids. Medium scale SSI. Monitor blood sugar and titrate PRN. Blood sugars improved on 12/22 exam Qualifiers: Diabetes mellitus usp insulin use: without rodent exterminator use Diabetes mellitus complication status: with hyperglycemia Qualified Code(s): E11.65 - Type 2 diabetes mellitus with hyperglycemia (4) DVT prophylaxis Current Visit: No Status: Acute Assessment and plan: Heparin. - Time Spent With Patient Total time spent is greater than 50% in coordination of care (as documented) at patient's floor/unit and/or counseling patient: - Subjective Interval history: Seen and examined at bedside; sitting up in chair bedside. Says she is still short of breath and feels a little worse than yesterday. No fever or chills. Has a productive cough is still having trouble coughing up phlegm. No chest pain. - Constitutional Vitals: Temp Pulse Resp BP Pulse Ox 98.3 F 108 17 130/80 93 12/22/17 11:47 12/22/17 11:47 12/22/17 11:47 12/22/17 11:47 12/22/17 11:47 General appearance: Present: A&O X 3, pleasant, no acute distress, answers questions appropriately - Head Head exam: Present: atraumatic, normocephalic - Eye Eye exam: Present: PERRL, conjuntiva pink, sclera anicteric Pupils: Present: PERRL - Neck Neck exam general surgery: Present: supple, trachea midline. Absent: lymphadenopathy - Respiratory Respiratory exam: Present: CTAB, rhonchi, wheezes. Absent: accessory muscle use , rales - Cardiovascular Cardiovascular exam: Present: +S1, +S2, tachycardia. Absent: diastolic murmur, gallop, rubs, systolic murmur - GI/Abdominal GI/Abdominal exam: Present: normal bowel sounds, soft, no peritoneal signs. Absent: distended, tenderness - Extremities Exam Extremities exam: Present: warm, radial pulses palpable and symmetrical. Absent : calf tenderness, cyanotic, pedal edema - Neurological Exam Neurological exam: Present: CN II-XII intact, oriented X3, no focal deficits. Absent: pronater drift, facial droop, speech deficit - Skin Skin exam: Present: dry, intact Internal Medicine: Result - Labs CBC & Chem 7: 12/22/17 06:31 12/22/17 06:31 Labs: Short CBC 12/22/17 Range/Units 06:31 WBC 12.4 H (4.3-11.1) K/mcL Hgb 12.1 (11.5-15.4) g/dL Hct 38.8 (35.3-44.9) % Plt Count 260 (140-400) K/mcL BMP 12/22/17 06:31 Sodium 139 Potassium 4.5 Chloride 103 Carbon Dioxide 27 BUN 27 H Creatinine 0.58 L Glucose 215 H Calcium 9.6 - ABG Interpretation ABG results: PT/INR, D-dimer PT 11.5 Seconds (9.4-12.1) 12/20/17 01:15 - Impressions Impressions Chest CTA 12/20/17 16:43 IMPRESSION: No evidence of pulmonary embolism or acute pulmonary abnormality. No significant change compared to prior CT. Stable lung nodules, measuring up to 8 mm in the right middle lobe. Moderate atherosclerotic disease of the thoracic aorta, most at the arch, causing at least 50% stenosis of the origin of the left subclavian artery. D/ / 12/20/2017 18:46:33 Ramy Viveros MD / Nicolle Tena Interpreting Provider: Ramy Viveros MD Consult Discharge Plan - Plan Referrals: Ray [facility] MD [Primary Care Provider] -
[2017-12-22] MEDS: Latanoprost 2.5 ML BOTTLE BOTH EYES SCH (21:05)
[2017-12-23] MEDS: Ipratropium/Albuterol Neb 3 ML IH SCH ×6 (03:44→23:00)
[2017-12-23 07:54] LABS: BUN/Creatinine Ratio 43 (6-26); Blood Urea Nitrogen 26 mg/dL (8-23); Calcium 9.5 mg/dL (8.6-10.3); Carbon Dioxide 26 mEq/L (23-29); Chloride 103 mEq/L (98-107); Glucose 193 mg/dL (70-105); Osmolality,Calculated 300 (280-300); Potassium 4.6 mEq/L (3.5-5.1); Sodium 140 mEq/L (136-145); eGFR For African Americans > 60 (> 60); eGFR For Non-African Americans > 60 (> 60)
[2017-12-23 08:07] LABS: Hematocrit 40.7 % (35.3-44.9); Hemoglobin 12.9 g/dL (11.5-15.4); Mean Corpuscular HGB Conc 31.7 g/dL (31.6-35.5); Mean Corpuscular Hemoglobin 26.7 pg (28.0-33.3); Mean Corpuscular Volume 84.3 fL (83.0-100.0); Mean Platelet Volume 9.7 fL (9.4-12.4); Platelet Count 246 K/mcL (140-400); Red Blood Count 4.83 M/mcL (3.82-4.97); Red Cell Distribution Width 15.2 % (11.5-14.5)
[2017-12-23] MEDS: Aspirin Enteric Coated 81 MG Tablet PO SCH (08:33)
[2017-12-23] MEDS: Furosemide 20 MG TABLET PO SCH (08:33)
[2017-12-23] MEDS: Cyanocobalamin (B-12) 1,000 MCG TABLET PO SCH (08:33)
[2017-12-23] MEDS: MethylPREDNISolone 40 MG/ML VIAL IVP SCH ×3 (08:33→20:21)
[2017-12-23] MEDS: *HR* Heparin 5,000 UNIT/ML VIAL SQ SCH ×3 (08:33→23:26)
[2017-12-23] MEDS: (Cyclosporine [Restasis] 1 EACH) OP SCH ×2 (08:34→20:31)
[2017-12-23] MEDS: Insulin LISPRO 300 UNITS/3 ML VIAL SQ SCH ×4 (08:34→20:21)
[2017-12-23] MEDS: Levofloxacin 750 MG/150 ML 750 MG/150 ML BAG IVPB SCH (08:35)
--- NOTE | 2017-12-23 17:43 | Internal Med Progress Note ---
Date of Encounter: 12/23/17 Time of Encounter: 10:35 - Assessment and plan (1) Acute exacerbation of chronic obstructive airways disease Current Visit: Yes Status: Chronic Assessment and plan: Chronic. Patient wears oxygen at home, is at her baseline demand currently. Patient continues to have diffuse wheezing, rhonchi, frequent, moist sounding cough. Chest x-ray is negative, urinary antigens and respiratory PCR negative. Leukocytosis has resolved. Patient reports that she is going to [facility] to discuss the lung transplant. Continue IV antibiotics, 02 as needed to maintain sats > 92% Continue nebulizer treatments (2) Essential hypertension Current Visit: Yes Status: Chronic Assessment and plan: Chronic. Well controlled. Continue home medications. (3) DVT prophylaxis Current Visit: Yes Status: Acute Assessment and plan: Heparin SQ TID (4) Type 2 diabetes mellitus Current Visit: Yes Status: Chronic Assessment and plan: Chronic. Medium coverage SSI, continue accuchecks achs and diabetic diet. Likely elevated due to steroid use. Qualifiers: Diabetes mellitus halfway insulin use: without halfway use Diabetes mellitus complication status: with hyperglycemia Qualified Code(s): E11.65 - Type 2 diabetes mellitus with hyperglycemia - Time Spent With Patient Total time spent is greater than 50% in coordination of care (as documented) at patient's floor/unit and/or counseling patient: less than 15 minutes - Subjective Interval history: Patient was seen and assessed the bedside 10:35 AM. She states that she is feeling somewhat better, states that she is not ready. Patient still has a moist sounding, frequent cough. She denies any headache, nausea, vomiting, diarrhea. She denies abdominal pain. She reports that she is at her normal baseline shortness of breath, cough is new. - Constitutional Vitals: Temp Pulse Resp BP Pulse Ox 97.9 F 104 18 121/75 95 12/23/17 14:58 12/23/17 14:58 12/23/17 15:37 12/23/17 14:58 12/23/17 15:37 General appearance: Present: cooperative, mild distress, A&O X 3, pleasant, answers questions appropriately - Head Head exam: Present: atraumatic, normal inspection, normocephalic - Eye Eye exam: Present: normal appearance, conjuntiva pink, sclera anicteric - Neck Neck exam general surgery: Present: supple, trachea midline. Absent: lymphadenopathy - Respiratory Respiratory exam: Present: decreased breath sounds, CTAB, rhonchi, wheezes. Absent: accessory muscle use, chest wall tenderness, rales, respiratory distress - Cardiovascular Cardiovascular exam: Present: RRR, +S1, +S2. Absent: diastolic murmur, gallop, rubs, systolic murmur - GI/Abdominal GI/Abdominal exam: Present: normal bowel sounds, soft. Absent: distended, hepatomegaly, tenderness - Extremities Exam Extremities exam: Present: normal capillary refill, normal inspection, warm, radial pulses palpable and symmetrical. Absent: calf tenderness, cyanotic, pedal edema, tenderness - Neurological Exam Neurological exam: Present: alert, oriented X3, no focal deficits. Absent: facial droop, speech deficit - Skin Skin exam: Present: dry, intact, normal color, warm. Absent: rash Internal Medicine: Result - Labs CBC & Chem 7: 12/23/17 07:22 12/23/17 07:22 Labs: Short CBC 12/23/17 Range/Units 07:22 WBC 10.8 (4.3-11.1) K/mcL Hgb 12.9 (11.5-15.4) g/dL Hct 40.7 (35.3-44.9) % Plt Count 246 (140-400) K/mcL [facility] 12/23/17 07:22 Sodium 140 Potassium 4.6 Chloride 103 Carbon Dioxide 26 BUN 26 H Creatinine 0.60 Glucose 193 H Calcium 9.5 - ABG Interpretation ABG results: PT/INR, D-dimer PT 11.5 Seconds (9.4-12.1) 12/20/17 01:15 Consult Discharge Plan - Plan Referrals: Ray [facility] MD [Primary Care Provider] -
[2017-12-23] MEDS: Latanoprost 2.5 ML BOTTLE BOTH EYES SCH (20:22)
[2017-12-24] MEDS: Ipratropium/Albuterol Neb 3 ML IH SCH ×6 (04:36→23:21)
[2017-12-24 05:12] LABS: Hemoglobin 13.5 g/dL (11.5-15.4); Mean Corpuscular HGB Conc 32.9 g/dL (31.6-35.5); Mean Corpuscular Volume 85.1 fL (83.0-100.0); Mean Platelet Volume 9.2 fL (9.4-12.4); Platelet Count 270 K/mcL (140-400); Red Blood Count 4.82 M/mcL (3.82-4.97)
[2017-12-24 05:28] LABS: BUN/Creatinine Ratio 52 (6-26); Blood Urea Nitrogen 32 mg/dL (8-23); Calcium 9.7 mg/dL (8.6-10.3); Carbon Dioxide 28 mEq/L (23-29); Chloride 102 mEq/L (98-107); Glucose 242 mg/dL (70-105); Osmolality,Calculated 301 (280-300); Potassium 4.3 mEq/L (3.5-5.1); Sodium 138 mEq/L (136-145); eGFR For African Americans > 60 (> 60); eGFR For Non-African Americans > 60 (> 60)
[2017-12-24] MEDS: MethylPREDNISolone 40 MG/ML VIAL IVP SCH ×2 (05:34→17:37)
[2017-12-24] MEDS: Levofloxacin 750 MG/150 ML 750 MG/150 ML BAG IVPB SCH (09:34)
[2017-12-24] MEDS: Furosemide 20 MG TABLET PO SCH (09:34)
[2017-12-24] MEDS: Aspirin Enteric Coated 81 MG Tablet PO SCH (09:34)
[2017-12-24] MEDS: Cyanocobalamin (B-12) 1,000 MCG TABLET PO SCH (09:34)
[2017-12-24] MEDS: *HR* Heparin 5,000 UNIT/ML VIAL SQ SCH ×2 (09:34→17:38)
[2017-12-24] MEDS: Insulin LISPRO 300 UNITS/3 ML VIAL SQ SCH ×4 (09:35→20:22)
[2017-12-24] MEDS: (Cyclosporine [Restasis] 1 EACH) OP SCH ×2 (10:37→12:26)
--- NOTE | 2017-12-24 14:03 | Internal Med Progress Note ---
Date of Encounter: 12/24/17 Time of Encounter: 10:30 - Assessment and plan (1) Acute exacerbation of chronic obstructive airways disease Current Visit: Yes Status: Chronic Assessment and plan: Chronic. Patient wears oxygen at home, is at her baseline demand currently. Patient continues to have diffuse wheezing, rhonchi, frequent, moist sounding cough. Continue IV antibiotics, 02 as needed to maintain sats > 92% Continue nebulizer treatments Pt reports that she normally requires 4-5 days in the hospital to feel better and be able to go home. She states that she wants to not readmit after discharge. (2) Essential hypertension Current Visit: Yes Status: Chronic Assessment and plan: Chronic. Continue home medications. Well controlled. (3) DVT prophylaxis Current Visit: Yes Status: Acute Assessment and plan: Heparin SQ three times daily. (4) Type 2 diabetes mellitus Current Visit: Yes Status: Chronic Assessment and plan: Chronic. Continue medium coverage SSI, continue accuchecks achs, and diabetic diet. Likely elevated due to steroid use. Qualifiers: Diabetes mellitus long-term insulin use: without manager intermediate use Diabetes mellitus complication status: with hyperglycemia Qualified Code(s): E11.65 - Type 2 diabetes mellitus with hyperglycemia - Time Spent With Patient Total time spent is greater than 50% in coordination of care (as documented) at patient's floor/unit and/or counseling patient: less than 15 minutes - Subjective Interval history: Patient was seen and assessed the bedside 10:30 AM. She states that she is feeling somewhat better, but reports that she is still having MOSER and is wheezy. She states that she is not ready to go home. Patient still has a frequent cough that is sometimes productive. She denies any headache, nausea, vomiting, diarrhea. She denies abdominal pain. She reports that she is at her normal baseline shortness of breath, cough is new. Denies fever, chills, body aches. - Constitutional Vitals: Temp Pulse Resp BP Pulse Ox 98.1 F 93 19 120/81 95 12/24/17 11:36 12/24/17 11:36 12/24/17 11:36 12/24/17 11:36 12/24/17 11:36 General appearance: Present: cooperative, mild distress, A&O X 3, pleasant, answers questions appropriately - Head Head exam: Present: atraumatic, normal inspection, normocephalic - Eye Eye exam: Present: normal appearance, conjuntiva pink, sclera anicteric - Neck Neck exam general surgery: Present: normal inspection, supple, trachea midline. Absent: lymphadenopathy, tenderness - Respiratory Respiratory exam: Present: CTAB. Absent: accessory muscle use, chest wall tenderness, prolonged expiratory phase, rales, respiratory distress, rhonchi, wheezes - Cardiovascular Cardiovascular exam: Present: RRR, +S1, +S2. Absent: diastolic murmur, gallop, rubs, systolic murmur, tachycardia - GI/Abdominal GI/Abdominal exam: Present: normal bowel sounds, soft. Absent: distended, hepatomegaly, tenderness - Extremities Exam Extremities exam: Present: normal capillary refill, normal inspection, warm, radial pulses palpable and symmetrical. Absent: calf tenderness, cyanotic, pedal edema, tenderness - Neurological Exam Neurological exam: Present: alert, oriented X3, no focal deficits. Absent: altered, facial droop, speech deficit - Skin Skin exam: Present: dry, intact, normal color, warm. Absent: rash Internal Medicine: Result - Labs CBC & Chem 7: 12/24/17 04:50 12/24/17 04:50 Labs: Short CBC 12/24/17 Range/Units 04:50 WBC 12.3 H (4.3-11.1) K/mcL Hgb 13.5 (11.5-15.4) g/dL Hct 41.0 (35.3-44.9) % Plt Count 270 (140-400) K/mcL BMP 12/24/17 04:50 Sodium 138 Potassium 4.3 Chloride 102 Carbon Dioxide 28 BUN 32 H Creatinine 0.62 Glucose 242 H Calcium 9.7 - ABG Interpretation ABG results: PT/INR, D-dimer PT 11.5 Seconds (9.4-12.1) 12/20/17 01:15 Consult Discharge Plan - Plan Referrals: Ray [facility] MD [Primary Care Provider] -
[2017-12-24] MEDS: Latanoprost 2.5 ML BOTTLE BOTH EYES SCH (20:17)
[2017-12-25] MEDS: (Cyclosporine [Restasis] 1 EACH) OP SCH ×2 (00:21→07:54)
[2017-12-25] MEDS: *HR* Heparin 5,000 UNIT/ML VIAL SQ SCH ×2 (00:22→07:54)
[2017-12-25] MEDS: Ipratropium/Albuterol Neb 3 ML IH SCH ×3 (03:38→11:01)
[2017-12-25 06:08] LABS: Hematocrit 41.7 % (35.3-44.9); Hemoglobin 13.7 g/dL (11.5-15.4); Immature Platelets 3.1 % (1.1-6.1); Mean Corpuscular HGB Conc 32.9 g/dL (31.6-35.5); Mean Corpuscular Volume 85.1 fL (83.0-100.0); Red Blood Count 4.9 M/mcL (3.82-4.97); Red Cell Distribution Width 15.1 % (11.5-14.5)
[2017-12-25 06:19] LABS: BUN/Creatinine Ratio 49 (6-26); Blood Urea Nitrogen 33 mg/dL (8-23); Calcium 9.2 mg/dL (8.6-10.3); Carbon Dioxide 23 mEq/L (23-29); Chloride 101 mEq/L (98-107); Glucose 164 mg/dL (70-105); Osmolality,Calculated 297 (280-300); Potassium 4.6 mEq/L (3.5-5.1); Sodium 138 mEq/L (136-145); eGFR For African Americans > 60 (> 60); eGFR For Non-African Americans > 60 (> 60)
[2017-12-25 07:15] VITALS: BP 114/80
[2017-12-25] MEDS: Insulin LISPRO 300 UNITS/3 ML VIAL SQ SCH ×2 (07:49→11:55)
[2017-12-25] MEDS: MethylPREDNISolone 40 MG/ML VIAL IVP SCH (07:54)
[2017-12-25] MEDS: Levofloxacin 750 MG/150 ML 750 MG/150 ML BAG IVPB SCH (07:54)
[2017-12-25] MEDS: Furosemide 20 MG TABLET PO SCH (07:54)
[2017-12-25] MEDS: Aspirin Enteric Coated 81 MG Tablet PO SCH (07:55)
[2017-12-25] MEDS: Cyanocobalamin (B-12) 1,000 MCG TABLET PO SCH (07:55)
[2017-12-25] MEDS ORDERED: Mag Hydrox/Al Hydrox/Simeth 30 ML UDC PO ONE (08:39)
--- NOTE | 2017-12-25 13:25 | Discharge Summary ---
- NOTES TO OUTPATIENT PROVIDER Notes to Outpatient Provider: Pt was admitted for AECOPD. Pt at baseline 02 use , was discharged on steroid taper, Levaquin for a 10 day course. Date of Encounter: 12/25/17 Time of Encounter: 11:00 - Discharge Diagnosis (1) Acute exacerbation of chronic obstructive airways disease Priority: Primary Status: Chronic Assessment and Plan: Patient wears oxygen at home, is at her baseline demand currently. Patient continues to have diffuse wheezing and posterior lung lawson, frequent, hacking cough Continue Levaquin by mouth to complete a 10 day course. 02 as needed to maintain sats > 92% Continue nebulizer treatments, patient denies need for refills on duo nebs or inhalers. (2) Essential hypertension Priority: Secondary Status: Chronic Assessment and Plan: Chronic. Well controlled. Continue home dose of antihypertensives. (3) Type 2 diabetes mellitus Priority: Secondary Status: Chronic Assessment and Plan: Chronic. Continue home medications, continue accuchecks per home regimen, and diabetic diet. 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 Leon is a 62 year old female with past medical history of CHF, diabetes, GERD, depression, COPD, smoking, obesity, respiratory failure. Pt was admitted for increasing SOB, persistent cough, dyspnea on exertion for 3-4 days prior to arrival. Patient treated for acute exacerbation of COPD with nebulizer treatments, IV steroids, IV antibiotics, oxygen. Patient improved throughout the course of the visit. Wheezing remains a posterior lung lawson, but patient states that she is feeling better and is ready to go home. She will be sent home with Levaquin by mouth to continue a 10 day course of antibiotics, steroid taper, guaifenesin 1200 mg by mouth twice a day when necessary cough. She has improved significantly and is stable and appropriate for discharge. Discharge discussed with: patient, nurse - Time Spent with Patient Total time spent providing and/or coordinating discharge services: Less than 30 minutes - Discharge Medications Prescriptions: Guaifenesin [Mucinex] 1,200 mg PO Q12H PRN #60 tab.er.12h PRN Reason: Congestion Levofloxacin [Levaquin] 750 mg PO DAILY #6 tablet predniSONE [PredniSONE] 10 mg PO DAILY #51 tablet Home Medications: Budesonide/Formoterol 160/4.5 [Symbicort] 2 puff IH BID 06/22/15 [History] Albuterol Sulfate [Proair Hfa] 2 puff IH Q4H PRN 07/14/16 [History] Atorvastatin Calcium [Lipitor] 80 mg PO QAM 07/14/16 [History] Sertraline [Zoloft] 50 mg PO DAILY 07/15/16 [History] Aspirin Enteric Coated [Aspirin EC] 81 mg PO DAILY 10/22/16 [History] Cyanocobalamin (Vitamin B-12) [Vitamin B-12] 1,000 mcg PO DAILY 10/22/16 [ History] Cyclosporine [Restasis] 1 each OP BID 10/22/16 [History] Ferrous Sulfate 325 mg PO DAILY 10/22/16 [History] Furosemide [Lasix] 20 mg PO DAILY 10/22/16 [History] Travoprost [Travatan Z] 1 drop OP QPM 10/22/16 [History] metFORMIN [Glucophage] 500 mg PO BIDWM #60 tablet 10/27/16 [Rx] Cyclobenzaprine HCl 10 mg PO HS 04/01/17 [History] Ergocalciferol (VITAMIN D2) [Vitamin D2] 50,000 unit PO QWEEK 04/01/17 [History] Umeclidinium [place] [Incruse Ellipta] 1 puff IH DAILY 04/01/17 [History] Nitroglycerin 0.4 mg PO Q5M PRN 07/08/17 [History] Ezetimibe [Zetia] 10 mg PO DAILY 09/01/17 [History] Albuterol Neb [Proventil Neb] 2.5 mg IH TID 09/22/17 [History] Metoprolol [Lopressor] 12.5 mg PO DAILY 09/22/17 [History] Oxygen 2.5 l NS AD 09/22/17 [History] Potassium Chloride 20 meq PO DAILY 09/22/17 [History] Loratadine [Claritin] 10 mg PO DAILY #30 tablet 09/26/17 [Rx] Dapagliflozin Propanediol [Farxiga] 5 mg PO DAILY 12/19/17 [History] Fluticasone Propionate Nasal [Flonase] 1 spray NS DAILY 12/19/17 [History] GuaiFENesin ER [Mucinex] 1,200 mg PO BID #0 tbbp.12hr 12/25/17 [Rx] Guaifenesin [Mucinex] 1,200 mg PO Q12H PRN #60 tab.er.12h 12/25/17 [Rx] Levofloxacin [Levaquin] 750 mg PO DAILY #6 tablet 12/25/17 [Rx] predniSONE [PredniSONE] 10 mg PO DAILY #51 tablet 12/25/17 [Rx] Allergies/Adverse Reactions: 3 Allergy/AdvReac Type Severity Reaction Status Date / Time acetaminophen [From Vicodin] AdvReac Headache Verified 07/15/16 13:34 hydrocodone [From Vicodin] AdvReac Headache Verified 07/15/16 13:34 methylprednisolone AdvReac Itching Verified 04/01/17 09:19 [From Solu-Medrol] Date of admission: 12/19/17 10:24 Primary care physician: Ray [facility] Discharging clinician: Daija Ramirez Anticipated date of discharge: 12/25/17 - Constitutional Vitals: Temp Pulse Resp BP Pulse Ox 98.6 F 93 16 114/80 95 12/25/17 07:14 12/25/17 07:14 12/25/17 11:01 12/25/17 07:14 12/25/17 11:01 General appearance: Present: cooperative, mild distress, A&O X 3, pleasant, no acute distress, answers questions appropriately - Head Head exam: Present: atraumatic, normocephalic - Eye Eye exam: Present: normal appearance, conjuntiva pink, sclera anicteric - Neck Neck exam general surgery: Present: normal inspection, supple, trachea midline. Absent: lymphadenopathy, tenderness - Respiratory Respiratory exam: Present: CTAB. Absent: accessory muscle use, rales, respiratory distress, rhonchi, wheezes - Cardiovascular Cardiovascular exam: Present: RRR, +S1, +S2. Absent: diastolic murmur, gallop, rubs, systolic murmur - GI/Abdominal GI/Abdominal exam: Present: normal bowel sounds, soft. Absent: distended, hepatomegaly, tenderness - Extremities Exam Extremities exam: Present: normal capillary refill, normal inspection, warm, radial pulses palpable and symmetrical. Absent: calf tenderness, cyanotic, pedal edema, tenderness - Neurological Exam Neurological exam: Present: alert, oriented X3, no focal deficits. Absent: pronater drift, facial droop, speech deficit - Skin Skin exam: Present: dry, intact, normal color, warm. Absent: rash - Patient Status Disposition: Home, Self-Care Condition: Good Functional capacity at discharge: independent ambulation Overall status at discharge: patient is progressing back to baseline - Discharge Instructions Follow Up With: [facility] MD [Primary Care Provider] - 12/30/17 10:00 am Additional Instructions: Please follow up with your PCP in the next 5-7 days for a recheck. Return to the ER if your symptoms return or worsen. Take your medications as directed, your prescriptions are at [facility]. Resume your normal activities as tolerated, try to stay at home until you are feeling better. Wear your 02 as needed. - Diet and Activity Activity: increase activity as tolerated Diet: advance to your usual diet
== END 2017-12-25 13:53 | disposition home or self-care (01) | DRG 191 ==
LOC: 3BNU 07:33 → EMEROO 07:33 → 3BNU 10:26
PROVIDERS: ADMIT Internal Medicine; ATTEND Internal Medicine

== ENCOUNTER 2018-01-19 16:52 | Inpatient (IN) ==
[2018-01-19] MEDS ORDERED: Ipratropium/Albuterol Neb 3 ML IH ONE (16:56)
[2018-01-19] MEDS ORDERED: predniSONE 20 MG TABLET PO ONE (16:56)
--- NOTE | 2018-01-19 17:00 | Emergency Department Note ---
Disposition Clinical Impression: Acute exacerbation of chronic obstructive airways disease Dyspnea Qualifiers: Dyspnea type: unspecified Qualified Code(s): R06.00 - Dyspnea, unspecified Disposition: Admitted As Inpatient Condition: Undetermined Referrals: Ray Garcia MD [Primary Care Provider] - Forms: ED Satisfaction Letter Time of Disposition: 18:43 SOB HPI - General Chief Complaint: ED Shortness of Breath/Dyspnea Stated Complaint: zohreh/sob x 4 days Time Seen by Provider: 01/19/18 16:55 Source: patient, EMS Mode of arrival: EMS Limitations: no limitations Nursing Notes Reviewed: Yes Vital Signs Reviewed: Yes - History of Present Illness 62-year-old female with extensive history of COPD who wears nasal cannula oxygen 2.5 L at night and when necessary arrives to the emergency department after expressing some shortness of breath over the past few days. The patient was recently diagnosed with COPD exacerbation and started on steroids. She completed one week's worth of steroids. The patient states that it did not improve her. The patient has a cough is coughing so hard she is having some posttussive vomiting. The patient has been using her albuterol inhalers at home. She denies any other complaints other than the dyspnea. The patient does state that he was not started on any antibiotics. She denies any other complaints at this time. - Related Data Home Medications Medication Instructions Recorded Confirmed Albuterol Sulfate [Proair Hfa] 2 puff IH Q4H PRN 07/14/16 01/19/18 Atorvastatin Calcium [Lipitor] 80 mg PO QAM 07/14/16 01/19/18 Sertraline [Zoloft] 50 mg PO DAILY 07/15/16 01/19/18 Aspirin Enteric Coated [Aspirin EC] 81 mg PO DAILY 10/22/16 01/19/18 Cyanocobalamin (Vitamin B-12) 1,000 mcg PO DAILY 10/22/16 01/19/18 [Vitamin B-12] Cyclosporine [Restasis] 1 each OP BID 10/22/16 01/19/18 Ferrous Sulfate 325 mg PO DAILY 10/22/16 01/19/18 Furosemide [Lasix] 20 mg PO DAILY 10/22/16 01/19/18 Travoprost [Travatan Z] 1 drop OP QPM 10/22/16 01/19/18 Cyclobenzaprine HCl 10 mg PO HS 04/01/17 01/19/18 Ergocalciferol (VITAMIN D2) 50,000 unit PO QWEEK 04/01/17 01/19/18 [Vitamin D2] Umeclidinium [place] [Incruse 1 puff IH DAILY 04/01/17 01/19/18 Ellipta] Nitroglycerin 0.4 mg PO Q5M PRN 07/08/17 01/19/18 Ezetimibe [Zetia] 10 mg PO DAILY 09/01/17 01/19/18 Albuterol Neb [Proventil Neb] 2.5 mg IH TID 09/22/17 01/19/18 Metoprolol [Lopressor] 12.5 mg PO DAILY 09/22/17 01/19/18 Oxygen 2.5 l NS AD 09/22/17 01/19/18 Potassium Chloride 20 meq PO DAILY 09/22/17 01/19/18 Dapagliflozin Propanediol [Farxiga] 5 mg PO DAILY 12/19/17 01/19/18 Fluticasone Propionate Nasal 1 spray NS DAILY 12/19/17 01/19/18 [Flonase] Budesonide/Formoterol 160/4.5 2 puff IH BIDR 01/19/18 01/19/18 [Symbicort 160/4.5] Previous Rx's Medication Instructions Recorded metFORMIN [Glucophage] 500 mg PO BIDWM #60 tablet 10/27/16 Loratadine [Claritin] 10 mg PO DAILY #30 tablet 09/26/17 Allergies Allergy/AdvReac Type Severity Reaction Status Date / Time acetaminophen [From Vicodin] AdvReac Headache Verified 01/19/18 17:41 hydrocodone [From Vicodin] AdvReac Headache Verified 01/19/18 17:41 methylprednisolone AdvReac Itching Verified 01/19/18 17:41 [From Solu-Medrol] All systems ED: reviewed and negative except as stated. Constitutional: Reports: weakness. Denies: fever, chills ENT ED: Denies: congestion Cardiovascular: Denies: chest pain Respiratory: Reports: cough, dyspnea, wheezes, sputum production. Denies: hemoptysis Gastrointestinal: Denies: abdominal pain Genitourinary: Denies: urgency, dysuria Musculoskeletal: Denies: back pain, neck pain Integumentary: Denies: rash Neurological: Denies: abnormal gait Past Medical History - Past Medical History Attestation: Yes The following information was validated with the patient. 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 - Social History Smoking Status: Former smoker Smokeless Tobacco Status: No Alcohol use: Reports: none Drug use: Reports: none Physical Exam - General Limitations: no limitations General appearance: alert, in distress (Mild to moderate respiratory distress) - Head Head exam: atraumatic - Eye Eye exam: Present: normal appearance, PERRL, EOMI - ENT ENT exam: normal exam, normal oropharynx, mucous membranes moist - Neck Neck exam: Present: normal inspection, full ROM, trachea midline - Chest Chest inspection: Present: normal inspection, symmetric chest wall rise - Respiratory Respiratory exam: Present: respiratory distress (mild to moderate), wheezes, accessory muscle use. Absent: stridor, prolonged expiratory phase - Cardiovascular Cardiovascular exam: Present: normal rhythm, tachycardia, normal heart sounds - Abdominal Exam Abdominal exam: Present: soft, Non-Tender. Absent: tenderness, distention, guarding, rebound, rigidity - Extremities Exam Extremities exam: Present: normal inspection, full ROM. Absent: tenderness, pedal edema - Neurological Exam Neurological exam: Present: alert, oriented X3 - Skin Skin exam: Present: warm, dry, intact, normal color Course Vital Signs O2 Sat by Pulse Oximetry 95 01/19/18 16:56 Temperature 98.3 F 01/19/18 16:59 Pulse Rate 102 01/19/18 16:59 Respiratory Rate 18 01/19/18 17:17 Blood Pressure 138/84 01/19/18 16:59 O2 Sat by Pulse Oximetry 95 01/19/18 17:17 Oxygen Delivery Oxygen Delivery Nasal Cannula Shortness of Breath/Dyspnea - MDM Narrative Medical decision making narrative: Workup in the emergency department given streets findings consistent with COPD exacerbation. Patient was given a DuoNeb's and feels much better at this time. We will admit the patient to the hospital for further workup and care. Patient agrees to plan of care. No further questions or concerns noted at this time. - Lab Data Lab results reviewed: Yes I reviewed the patient's lab results. Result diagrams: 01/19/18 17:03 01/19/18 17:03 Lab Results 01/19/18 01/19/18 Range/Units 17:03 17:03 WBC 10.6 (4.3-11.1) K/mcL RBC 4.24 (3.82-4.97) M/mcL Hgb 11.4 L (11.5-15.4) g/dL Hct 36.3 (35.3-44.9) % MCV 85.6 (83.0-100.0) fL MCH 26.9 L (28.0-33.3) pg MCHC 31.4 L (31.6-35.5) g/dL RDW 15.2 H (11.5-14.5) % Plt Count 297 (140-400) K/mcL MPV 9.3 L (9.4-12.4) fL Immature Gran % 1.3 (0-4) % Seg Neutrophils % 78.7 % Lymphocytes % 13.2 % Monocytes % 6.4 % Eosinophils % 0.2 % Basophils % 0.2 % Neutrophils # 8.3 (1.6-8.9) K/mcL Lymphocytes # 1.4 (0.6-4.6) K/mcL Monocytes # 0.7 (0.0-1.3) K/mcL Eosinophils # 0.0 (0.0-0.6) K/mcL Basophils # 0.0 (0.0-0.2) K/mcL Sodium 139 (136-145) mEq/L Potassium 3.8 (3.5-5.1) mEq/L Chloride 104 (98-107) mEq/L Carbon Dioxide 25 (23-29) mEq/L BUN 19 (8-23) mg/dL Creatinine 0.57 L (0.60-1.20) mg/dL Est GFR ( Amer) > 60 (> 60) Est GFR (Non-Af Amer) > 60 (> 60) BUN/Creatinine Ratio 33 H (6-26) Glucose 129 H (70-105) mg/dL Calculated Osmolality 292 (280-300) Calcium 9.6 (8.6-10.3) mg/dL Troponin I < 0.03 (< 0.04) ng/mL - Radiology Data Radiology results reviewed: Yes I reviewed the patient's radiology results. Chest X-Ray 01/19/18 16:56 IMPRESSION: 1. No acute cardiopulmonary process identified. 2. Findings suggesting COPD. D/ / Michael English MD / Michael English MD Interpreting Provider: Michael English MD - EKG Data EKG attestation: Yes I reviewed and interpreted this EKG. EKG results narrative: Heart rate 90 bpm. Normal sinus rhythm. No ST elevation or ST depression noted. EKG similar appearance to EKG from 12/19/2017.
[2018-01-19 17:20] LABS: Basophils % 0.2 %; Eosinophils % 0.2 %; Hematocrit 36.3 % (35.3-44.9); Hemoglobin 11.4 g/dL (11.5-15.4); Immature Granulocytes % 1.3 % (0-4); Lymphocytes # 1.4 K/mcL (0.6-4.6); Lymphocytes % 13.2 %; Mean Corpuscular HGB Conc 31.4 g/dL (31.6-35.5); Mean Corpuscular Hemoglobin 26.9 pg (28.0-33.3); Mean Corpuscular Volume 85.6 fL (83.0-100.0); Mean Platelet Volume 9.3 fL (9.4-12.4); Monocytes # 0.7 K/mcL (0.0-1.3); Monocytes % 6.4 %; Neutrophils # 8.3 K/mcL (1.6-8.9); Platelet Count 297 K/mcL (140-400); Red Blood Count 4.24 M/mcL (3.82-4.97); Red Cell Distribution Width 15.2 % (11.5-14.5); Segmented Neutrophils % 78.7 %
[2018-01-19 17:38] LABS: BUN/Creatinine Ratio 33 (6-26); Blood Urea Nitrogen 19 mg/dL (8-23); Calcium 9.6 mg/dL (8.6-10.3); Carbon Dioxide 25 mEq/L (23-29); Chloride 104 mEq/L (98-107); Glucose 129 mg/dL (70-105); Osmolality,Calculated 292 (280-300); Potassium 3.8 mEq/L (3.5-5.1); Sodium 139 mEq/L (136-145); Troponin I < 0.03 ng/mL (< 0.04); eGFR For African Americans > 60 (> 60); eGFR For Non-African Americans > 60 (> 60)
--- NOTE | 2018-01-19 18:21 | Emergency Department Note ---
Disposition Clinical Impression: Dyspnea Qualifiers: Dyspnea type: unspecified Qualified Code(s): R06.00 - Dyspnea, unspecified Disposition: Still a Patient Referrals: Ray Garcia MD [Primary Care Provider] - Forms: ED Satisfaction Letter General Adult HPI - General Chief complaint: ED Shortness of Breath/Dyspnea Stated complaint: zohreh/sob x 4 days Time Seen by Provider: 01/19/18 16:55 Source: patient, EMS Mode of arrival: EMS Limitations: no limitations - History of Present Illness Pain Scale: 10 - Related Data Home Medications Medication Instructions Recorded Confirmed Albuterol Sulfate [Proair Hfa] 2 puff IH Q4H PRN 07/14/16 01/19/18 Atorvastatin Calcium [Lipitor] 80 mg PO QAM 07/14/16 01/19/18 Sertraline [Zoloft] 50 mg PO DAILY 07/15/16 01/19/18 Aspirin Enteric Coated [Aspirin EC] 81 mg PO DAILY 10/22/16 01/19/18 Cyanocobalamin (Vitamin B-12) 1,000 mcg PO DAILY 10/22/16 01/19/18 [Vitamin B-12] Cyclosporine [Restasis] 1 each OP BID 10/22/16 01/19/18 Ferrous Sulfate 325 mg PO DAILY 10/22/16 01/19/18 Furosemide [Lasix] 20 mg PO DAILY 10/22/16 01/19/18 Travoprost [Travatan Z] 1 drop OP QPM 10/22/16 01/19/18 Cyclobenzaprine HCl 10 mg PO HS 04/01/17 01/19/18 Ergocalciferol (VITAMIN D2) 50,000 unit PO QWEEK 04/01/17 01/19/18 [Vitamin D2] Umeclidinium [place] [Incruse 1 puff IH DAILY 04/01/17 01/19/18 Ellipta] Nitroglycerin 0.4 mg PO Q5M PRN 07/08/17 01/19/18 Ezetimibe [Zetia] 10 mg PO DAILY 09/01/17 01/19/18 Albuterol Neb [Proventil Neb] 2.5 mg IH TID 09/22/17 01/19/18 Metoprolol [Lopressor] 12.5 mg PO DAILY 09/22/17 01/19/18 Oxygen 2.5 l NS AD 09/22/17 01/19/18 Potassium Chloride 20 meq PO DAILY 09/22/17 01/19/18 Dapagliflozin Propanediol [Farxiga] 5 mg PO DAILY 12/19/17 01/19/18 Fluticasone Propionate Nasal 1 spray NS DAILY 12/19/17 01/19/18 [Flonase] Budesonide/Formoterol 160/4.5 2 puff IH BIDR 01/19/18 01/19/18 [Symbicort 160/4.5] Previous Rx's Medication Instructions Recorded metFORMIN [Glucophage] 500 mg PO BIDWM #60 tablet 10/27/16 Loratadine [Claritin] 10 mg PO DAILY #30 tablet 09/26/17 Allergies Allergy/AdvReac Type Severity Reaction Status Date / Time acetaminophen [From Vicodin] AdvReac Headache Verified 01/19/18 17:41 hydrocodone [From Vicodin] AdvReac Headache Verified 01/19/18 17:41 methylprednisolone AdvReac Itching Verified 01/19/18 17:41 [From Solu-Medrol] Constitutional: Reports: weakness. Denies: fever, chills ENT ED: Denies: congestion Cardiovascular: Denies: chest pain Respiratory: Reports: cough, dyspnea, wheezes, sputum production. 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 - Social History Smoking Status: Former smoker Smokeless Tobacco Status: No Alcohol use: Reports: none Drug use: Reports: none Physical Exam - General Limitations: no limitations General appearance: alert, in distress (Mild to moderate respiratory distress) Course Vital Signs O2 Sat by Pulse Oximetry 95 01/19/18 16:56 Temperature 98.3 F 01/19/18 16:59 Pulse Rate 102 01/19/18 16:59 Respiratory Rate 18 01/19/18 17:17 Blood Pressure 138/84 01/19/18 16:59 O2 Sat by Pulse Oximetry 95 01/19/18 17:17 Oxygen Delivery Oxygen Delivery Nasal Cannula Medical Decision Making - Lab Data Result diagrams: 01/19/18 17:03 01/19/18 17:03 Lab Results 01/19/18 01/19/18 Range/Units 17:03 17:03 WBC 10.6 (4.3-11.1) K/mcL RBC 4.24 (3.82-4.97) M/mcL Hgb 11.4 L (11.5-15.4) g/dL Hct 36.3 (35.3-44.9) % MCV 85.6 (83.0-100.0) fL MCH 26.9 L (28.0-33.3) pg MCHC 31.4 L (31.6-35.5) g/dL RDW 15.2 H (11.5-14.5) % Plt Count 297 (140-400) K/mcL MPV 9.3 L (9.4-12.4) fL Immature Gran % 1.3 (0-4) % Seg Neutrophils % 78.7 % Lymphocytes % 13.2 % Monocytes % 6.4 % Eosinophils % 0.2 % Basophils % 0.2 % Neutrophils # 8.3 (1.6-8.9) K/mcL Lymphocytes # 1.4 (0.6-4.6) K/mcL Monocytes # 0.7 (0.0-1.3) K/mcL Eosinophils # 0.0 (0.0-0.6) K/mcL Basophils # 0.0 (0.0-0.2) K/mcL Sodium 139 (136-145) mEq/L Potassium 3.8 (3.5-5.1) mEq/L Chloride 104 (98-107) mEq/L Carbon Dioxide 25 (23-29) mEq/L BUN 19 (8-23) mg/dL Creatinine 0.57 L (0.60-1.20) mg/dL Est GFR ( Amer) > 60 (> 60) Est GFR (Non-Af Amer) > 60 (> 60) BUN/Creatinine Ratio 33 H (6-26) Glucose 129 H (70-105) mg/dL Calculated Osmolality 292 (280-300) Calcium 9.6 (8.6-10.3) mg/dL Troponin I < 0.03 (< 0.04) ng/mL Attestation Statement - Attestation Attestation: I examined this patient and my medical decision-making was reviewed with the Resident Physician. I agree with the documented findings, disposition and treatment plan as described except to the extent set forth below. 62 year old female presents to the ED with complaints of dyspnea and 90% on RA and states that she has a history of COPD and states that she has been feeling more fatigue and weakness recently exertion in nature. PAinet denies fevers, or productive cough. We will do cardiopulmonary workup
[2018-01-19] MEDS ORDERED: Nitroglycerin 0.4 MG TAB.SUBL SL PRN (20:21)
[2018-01-19] MEDS ORDERED: Ibuprofen 400 MG TABLET PO PRN (20:26)
[2018-01-19] MEDS ORDERED: Naloxone 0.4 MG/ML INJ IVP PRN (20:26)
[2018-01-19] MEDS ORDERED: *HR* OxyCODONE Immed Rel 5 MG TABLET PO PRN (20:26)
--- NOTE | 2018-01-19 20:30 | Internal Med History&Physical ---
Date of Encounter: 01/19/18 Time of Encounter: 20:28 Internal Medicine - H&P: HPI Chief complaint: Shortness of breath Admitted From: Emergency Dept History of present illness: Ms. Leon is a 62 year old female with a past medical history of COPD oxygen dependent using 2.5 L at night and as needed, depression, diastolic CHF, diabetes type 2 not insulin-dependent who was discharged from this hospital on December 25. The patient was also treated with prednisone for the past week and was given also a Z-Kai. She says she is allergic Solu-Medrol has been taking prednisone without a problem. Chest x-ray does not show any acute cardiac pulmonary disease. She has been bringing up greenish phlegm. Has been having chills, denies any sick contacts. No other complaints Past Med Surg Social Fam HX - Past Medical History Medical history: CHF (Diastolic CHF with an ejection fraction of 55%), COPD ( Oxygen dependent using 2.5 L at night and as needed), diabetes (Not insulin- dependent), GERD, glaucoma, hyperlipidemia, hypertension, other (Diverticulosis , glaucoma, GERD, anxiety) Additional medical history: angina, anemia 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: anxiety, depression - Past Surgical History Surgical History: cataract, hysterectomy Additional surgical history: polyp removal - Social History Smoking Status: Former smoker Smokeless Tobacco Status: No Alcohol use: none Drug use: none - Family History Mother Adopted: No Living Status: Hx Family Cancer: Yes (Pancreatic cancer) Father Living Status: Hx Family Cardiac Disorders: Yes Hx Family Endocrine Disorder: Yes (Diabetes) - Additional Family History Additional family history: Father with diabetes in mother with pancreatic cancer Internal Medicine - H&P: Meds Albuterol Sulfate [Proair Hfa] 2 puff IH Q4H PRN 07/14/16 [History] Atorvastatin Calcium [Lipitor] 80 mg PO QAM 07/14/16 [History] Sertraline [Zoloft] 50 mg PO DAILY 07/15/16 [History] Aspirin Enteric Coated [Aspirin EC] 81 mg PO DAILY 10/22/16 [History] Cyanocobalamin (Vitamin B-12) [Vitamin B-12] 1,000 mcg PO DAILY 10/22/16 [ History] Cyclosporine [Restasis] 1 each OP BID 10/22/16 [History] Ferrous Sulfate 325 mg PO DAILY 10/22/16 [History] Furosemide [Lasix] 20 mg PO DAILY 10/22/16 [History] Travoprost [Travatan Z] 1 drop OP QPM 10/22/16 [History] metFORMIN [Glucophage] 500 mg PO BIDWM #60 tablet 10/27/16 [Rx] Cyclobenzaprine HCl 10 mg PO HS 04/01/17 [History] Ergocalciferol (VITAMIN D2) [Vitamin D2] 50,000 unit PO QWEEK 04/01/17 [History] Umeclidinium [place] [Incruse Ellipta] 1 puff IH DAILY 04/01/17 [History] Nitroglycerin 0.4 mg PO Q5M PRN 07/08/17 [History] Ezetimibe [Zetia] 10 mg PO DAILY 09/01/17 [History] Albuterol Neb [Proventil Neb] 2.5 mg IH TID 09/22/17 [History] Metoprolol [Lopressor] 12.5 mg PO DAILY 09/22/17 [History] Oxygen 2.5 l NS AD 09/22/17 [History] Potassium Chloride 20 meq PO DAILY 09/22/17 [History] Loratadine [Claritin] 10 mg PO DAILY #30 tablet 09/26/17 [Rx] Dapagliflozin Propanediol [Farxiga] 5 mg PO DAILY 12/19/17 [History] Fluticasone Propionate Nasal [Flonase] 1 spray NS DAILY 12/19/17 [History] Budesonide/Formoterol 160/4.5 [Symbicort 160/4.5] 2 puff IH BIDR 01/19/18 [ History] 3 Allergy/AdvReac Type Severity Reaction Status Date / Time acetaminophen [From Vicodin] AdvReac Headache Verified 01/19/18 17:41 hydrocodone [From Vicodin] AdvReac Headache Verified 01/19/18 17:41 methylprednisolone AdvReac Itching Verified 01/19/18 17:41 [From Solu-Medrol] All Systems PM: A 10-system review of systems was performed and is negative for pertinent findings except as documented above in the HPI. Review of systems: Feels weak, denies any chest pain, other systems out of the 10 reviewed were negative - Constitutional Vitals: Temp Pulse Resp BP Pulse Ox 98.3 F 94 18 134/76 94 01/19/18 16:59 01/19/18 20:17 01/19/18 20:17 01/19/18 20:17 01/19/18 20:17 General appearance: Present: A&O X 3 - Head Head exam: Present: atraumatic, normocephalic - Eye Eye exam: Present: PERRL, conjuntiva pink, sclera anicteric Pupils: Present: PERRL - Neck Neck exam general surgery: Present: supple, trachea midline. Absent: lymphadenopathy - Respiratory Respiratory exam: Present: CTAB, wheezes (Diffuse wheezing). Absent: accessory muscle use, rales, rhonchi - Cardiovascular Cardiovascular exam: Present: RRR, +S1, +S2. Absent: diastolic murmur, gallop, rubs, systolic murmur - GI/Abdominal GI/Abdominal exam: Present: normal bowel sounds, soft, no peritoneal signs. Absent: distended, tenderness - Extremities Exam Extremities exam: Present: warm, radial pulses palpable and symmetrical. Absent : calf tenderness, cyanotic, pedal edema - Neurological Exam Neurological exam: Present: CN II-XII intact, oriented X3, no focal deficits. Absent: pronater drift, facial droop, speech deficit - Skin Skin exam: Present: dry, intact Internal Med - H&P Results - Labs CBC & Chem 7: 01/19/18 17:03 01/19/18 17:03 Labs: Short CBC 01/19/18 Range/Units 17:03 WBC 10.6 (4.3-11.1) K/mcL Hgb 11.4 L (11.5-15.4) g/dL Hct 36.3 (35.3-44.9) % Plt Count 297 (140-400) K/mcL Neutrophils # 8.3 (1.6-8.9) K/mcL BMP 01/19/18 17:03 Sodium 139 Potassium 3.8 Chloride 104 Carbon Dioxide 25 BUN 19 Creatinine 0.57 L Glucose 129 H Calcium 9.6 Cardiac Enzymes 01/19/18 Range/Units 17:03 Troponin I < 0.03 (< 0.04) ng/mL - Impressions ITS Impressions Chest X-Ray 01/19/18 16:56 IMPRESSION: 1. No acute cardiopulmonary process identified. 2. Findings suggesting COPD. D/ / Michael English MD / Michael English MD Interpreting Provider: Michael English MD - Assessment and plan (1) Acute and chronic respiratory failure ([id number]) Current Visit: No Status: Acute Assessment and plan: Acute on chronic hypoxic respiratory failure secondary to acute COPD exacerbation due to acute bacterial bronchitis Start IV dexamethasone, duo nebs, oxygen therapy Start Rocephin Omeprazole for GI prophylaxis and subcutaneous tenderness heparin for DVT prophylaxis. The patient will be admitted for observation. Full code. 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 Diabetes mellitus complication status: without complication Qualified Code(s): E11.9 - Type 2 diabetes mellitus without complications (4) GERD (gastroesophageal reflux disease) Current Visit: No Status: Chronic Qualifiers: Esophagitis presence: without esophagitis Qualified Code(s): K21.9 - Gastro -esophageal reflux disease without esophagitis (5) Hyperlipidemia Current Visit: No Status: Chronic Qualifiers: Hyperlipidemia type: mixed hyperlipidemia Qualified Code(s): E78.2 - Mixed hyperlipidemia - Time Spent With Patient Total time spent is greater than 50% in coordination of care (as documented) at patient's floor/unit and/or counseling patient:
[2018-01-19] MEDS ORDERED: *HR* Dextrose 50 % in Water (Syg) 50 ML SYRINGE IVP PRN (20:32)
[2018-01-19] MEDS ORDERED: Dextrose Gel 15 GM/37.5 ML TUBE PO PRN ×2 (20:32)
[2018-01-19] MEDS ORDERED: D5% in Water 1,000 ML IVC PRN (20:32)
[2018-01-19] MEDS ORDERED: Insulin LISPRO 300 UNITS/3 ML VIAL SQ SCH (20:45)
[2018-01-19] MEDS: Ipratropium/Albuterol Neb 3 ML IH SCH (21:20)
[2018-01-19] MEDS: 0.9 % Sodium Chloride 1,000 ML IVC SCH (22:54)
[2018-01-19] MEDS: Dexamethasone 4 MG/ML VIAL IVP SCH ×2 (22:59→23:44)
[2018-01-19] MEDS: cefTRIAXone 1,000 MG in Water for inj. (sterile) 20 ML 10 ML IVP SCH (23:00)
[2018-01-19] MEDS: *HR* Heparin 5,000 UNIT/ML VIAL SQ SCH (23:00)
[2018-01-19] MEDS: Insulin LISPRO 300 UNITS/3 ML VIAL SQ SCH (23:01)
[2018-01-20] MEDS: Ipratropium/Albuterol Neb 3 ML IH SCH ×6 (03:37→23:25)
[2018-01-20 05:02] LABS: Hematocrit 36.9 % (35.3-44.9); Hemoglobin 11.8 g/dL (11.5-15.4); Mean Corpuscular Hemoglobin 27.4 pg (28.0-33.3); Mean Corpuscular Volume 85.6 fL (83.0-100.0); Mean Platelet Volume 9.9 fL (9.4-12.4); Platelet Count 277 K/mcL (140-400); Red Blood Count 4.31 M/mcL (3.82-4.97)
[2018-01-20 05:23] LABS: BUN/Creatinine Ratio 29 (6-26); Blood Urea Nitrogen 18 mg/dL (8-23); Calcium 9.5 mg/dL (8.6-10.3); Carbon Dioxide 25 mEq/L (23-29); Chloride 104 mEq/L (98-107); Glucose 251 mg/dL (70-105); Osmolality,Calculated 298 (280-300); Potassium 4.3 mEq/L (3.5-5.1); Sodium 139 mEq/L (136-145); eGFR For African Americans > 60 (> 60); eGFR For Non-African Americans > 60 (> 60)
[2018-01-20] MEDS: *HR* Heparin 5,000 UNIT/ML VIAL SQ SCH ×3 (06:00→22:03)
[2018-01-20] MEDS: Insulin LISPRO 300 UNITS/3 ML VIAL SQ SCH ×4 (09:31→22:04)
[2018-01-20] MEDS: Dexamethasone 4 MG/ML VIAL IVP SCH ×2 (09:38→22:03)
[2018-01-20] MEDS: Aspirin Enteric Coated 81 MG Tablet PO SCH (09:38)
[2018-01-20] MEDS: cefTRIAXone 1,000 MG in Water for inj. (sterile) 20 ML 10 ML IVP SCH (09:39)
[2018-01-20] MEDS ORDERED: Ipratropium/Albuterol Neb 3 ML ONE (11:17)
[2018-01-20] MEDS: 0.9 % Sodium Chloride 1,000 ML IVC SCH (14:41)
--- NOTE | 2018-01-20 18:26 | Internal Med Progress Note ---
Date of Encounter: 01/20/18 Time of Encounter: 11:30 - Assessment and plan (1) Acute and chronic respiratory failure ([id number]) Current Visit: No Status: Acute Assessment and plan: Acute on chronic hypoxic respiratory failure secondary to acute COPD exacerbation due to acute bacterial bronchitis Continue dexamethasone IV Continue Rocephin Bronchodilators every 4 hours Wean oxygen down to home O2 which is 2 L nasal cannula Qualifiers: Respiratory failure complication: hypoxia Qualified Code(s): J96.21 - Acute and chronic respiratory failure with hypoxia (2) Diabetes Current Visit: No Status: Chronic Assessment and plan: Insulin sliding scale Accu-Cheks before meals at bedtime Qualifiers: Diabetes mellitus type: type 2 Diabetes mellitus erp specialist insulin use: without erp specialist use Diabetes mellitus complication status: without complication Qualified Code(s): E11.9 - Type 2 diabetes mellitus without complications (3) GERD (gastroesophageal reflux disease) Current Visit: No Status: Chronic Assessment and plan: Continue with PPI Qualifiers: Esophagitis presence: without esophagitis Qualified Code(s): K21.9 - Gastro -esophageal reflux disease without esophagitis (4) Hyperlipidemia Current Visit: No Status: Chronic Assessment and plan: Continue a statin Qualifiers: Hyperlipidemia type: mixed hyperlipidemia Qualified Code(s): E78.2 - Mixed hyperlipidemia (5) COPD with acute exacerbation Current Visit: No Status: Acute (6) DVT prophylaxis Current Visit: No Status: Acute Assessment and plan: Heparin subcutaneous - Time Spent With Patient Total time spent is greater than 50% in coordination of care (as documented) at patient's floor/unit and/or counseling patient: - Subjective Interval history: I did see the patient at bedside, she continues to complain of shortness of breath and wheezing she does not have a cough or fever. I did review treatment plan the patient who verbalized understanding. - Constitutional Vitals: Temp Pulse Resp BP Pulse Ox 98.0 F 93 24 119/74 94 01/20/18 15:29 01/20/18 15:29 01/20/18 15:39 01/20/18 15:29 01/20/18 15:39 General appearance: Present: A&O X 3 - Head Head exam: Present: atraumatic, normocephalic - Eye Eye exam: Present: PERRL, conjuntiva pink, sclera anicteric Pupils: Present: PERRL - Neck Neck exam general surgery: Present: supple, trachea midline. Absent: lymphadenopathy - Respiratory Respiratory exam: Present: wheezes. Absent: accessory muscle use, rales, rhonchi - Cardiovascular Cardiovascular exam: Present: RRR, +S1, +S2. Absent: diastolic murmur, gallop, rubs, systolic murmur - GI/Abdominal GI/Abdominal exam: Present: normal bowel sounds, soft, no peritoneal signs. Absent: distended, tenderness - Extremities Exam Extremities exam: Present: warm, radial pulses palpable and symmetrical. Absent : calf tenderness, cyanotic, pedal edema - Neurological Exam Neurological exam: Present: CN II-XII intact, oriented X3, no focal deficits. Absent: pronater drift, facial droop, speech deficit - Skin Skin exam: Present: dry, intact Internal Medicine: Result - Labs CBC & Chem 7: 01/20/18 04:03 01/20/18 04:03 Labs: Short CBC 01/20/18 Range/Units 04:03 WBC 9.1 (4.3-11.1) K/mcL Hgb 11.8 (11.5-15.4) g/dL Hct 36.9 (35.3-44.9) % Plt Count 277 (140-400) K/mcL BMP 01/20/18 04:03 Sodium 139 Potassium 4.3 Chloride 104 Carbon Dioxide 25 BUN 18 Creatinine 0.62 Glucose 251 H Calcium 9.5 Consult Discharge Plan - Plan Referrals: Ray Garcia MD [Primary Care Provider] -
--- NOTE | 2018-01-20 20:51 | Electrocardiograph Report ---
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
[2018-01-20] MEDS: (Cyclosporine [Restasis] 1 EACH) OP SCH (22:03)
[2018-01-21] MEDS: Ipratropium/Albuterol Neb 3 ML IH SCH ×6 (04:20→23:04)
[2018-01-21] MEDS: *HR* Heparin 5,000 UNIT/ML VIAL SQ SCH ×3 (06:30→20:21)
[2018-01-21 07:28] LABS: Basophils % 0.2 %; Hematocrit 34.2 % (35.3-44.9); Hemoglobin 11.1 g/dL (11.5-15.4); Immature Granulocytes % 1.9 % (0-4); Lymphocytes # 0.9 K/mcL (0.6-4.6); Lymphocytes % 7.3 %; Mean Corpuscular HGB Conc 32.5 g/dL (31.6-35.5); Mean Corpuscular Hemoglobin 27.9 pg (28.0-33.3); Mean Corpuscular Volume 85.9 fL (83.0-100.0); Mean Platelet Volume 9.7 fL (9.4-12.4); Monocytes # 0.6 K/mcL (0.0-1.3); Monocytes % 4.7 %; Neutrophils # 10.5 K/mcL (1.6-8.9); Platelet Count 315 K/mcL (140-400); Red Blood Count 3.98 M/mcL (3.82-4.97); Red Cell Distribution Width 14.8 % (11.5-14.5); Segmented Neutrophils % 85.9 %
[2018-01-21 07:43] LABS: BUN/Creatinine Ratio 40 (6-26); Blood Urea Nitrogen 20 mg/dL (8-23); Calcium 9.2 mg/dL (8.6-10.3); Carbon Dioxide 27 mEq/L (23-29); Chloride 106 mEq/L (98-107); Glucose 204 mg/dL (70-105); Osmolality,Calculated 300 (280-300); Potassium 4.3 mEq/L (3.5-5.1); Sodium 141 mEq/L (136-145); eGFR For African Americans > 60 (> 60); eGFR For Non-African Americans > 60 (> 60)
[2018-01-21] MEDS: Dexamethasone 4 MG/ML VIAL IVP SCH ×2 (08:51→20:17)
[2018-01-21] MEDS: Aspirin Enteric Coated 81 MG Tablet PO SCH (08:51)
[2018-01-21] MEDS: cefTRIAXone 1,000 MG in Water for inj. (sterile) 20 ML 10 ML IVP SCH (08:51)
[2018-01-21] MEDS: (Cyclosporine [Restasis] 1 EACH) OP SCH ×2 (08:57→20:16)
[2018-01-21] MEDS: Insulin LISPRO 300 UNITS/3 ML VIAL SQ SCH ×4 (08:57→20:17)
--- NOTE | 2018-01-21 21:55 | Internal Med Progress Note ---
Date of Encounter: 01/21/18 Time of Encounter: 17:00 - Assessment and plan (1) Acute and chronic respiratory failure (vxcjv-[id number]) Current Visit: No Status: Acute Assessment and plan: Acute on chronic hypoxic respiratory failure secondary to acute COPD exacerbation due to acute bacterial bronchitis She is improving she is down to 3 L nasal cannula she normally wears 2-1/2 home we will continue to wean oxygen Continue dexamethasone IV Continue Rocephin Bronchodilators every 4 hours Qualifiers: Respiratory failure complication: hypoxia Qualified Code(s): J96.21 - Acute and chronic respiratory failure with hypoxia (2) Diabetes Current Visit: No Status: Chronic Assessment and plan: Insulin sliding scale Accu-Cheks before meals at bedtime-adjust as needed. Since patient is on steroids Qualifiers: Diabetes mellitus type: type 2 Diabetes mellitus half-way insulin use: without long term care social worker use Diabetes mellitus complication status: without complication Qualified Code(s): E11.9 - Type 2 diabetes mellitus without complications (3) GERD (gastroesophageal reflux disease) Current Visit: No Status: Chronic Assessment and plan: Continue with PPI Qualifiers: Esophagitis presence: without esophagitis Qualified Code(s): K21.9 - Gastro -esophageal reflux disease without esophagitis (4) Hyperlipidemia Current Visit: No Status: Chronic Assessment and plan: Continue a statin Qualifiers: Hyperlipidemia type: mixed hyperlipidemia Qualified Code(s): E78.2 - Mixed hyperlipidemia (5) COPD with acute exacerbation Current Visit: No Status: Acute Assessment and plan: Wheezing has improved we will continue with steroids Continue with oxygen titrating to home oxygen at 2-1/2 L Bronchodilators We will obtain sputum sample Patient has had slightly elevated white count however she is on steroids continue to monitor Continue with Rocephin (6) DVT prophylaxis Current Visit: No Status: Acute Assessment and plan: Heparin subcutaneous - Time Spent With Patient Total time spent is greater than 50% in coordination of care (as documented) at patient's floor/unit and/or counseling patient: - Subjective Interval history: I did see the patient at bedside, patient has a cough with yellow sputum production. Feels her breathing has improved somewhat, however she does have shortness of breath on exertion. - Constitutional Vitals: Temp Pulse Resp BP Pulse Ox 98.4 F 92 16 147/91 96 01/21/18 19:04 01/21/18 19:04 01/21/18 20:25 01/21/18 19:04 01/21/18 20:25 General appearance: Present: A&O X 3 - Head Head exam: Present: atraumatic, normocephalic - Eye Eye exam: Present: PERRL, conjuntiva pink, sclera anicteric Pupils: Present: PERRL - Neck Neck exam general surgery: Present: supple, trachea midline. Absent: lymphadenopathy - Respiratory Respiratory exam: Present: decreased breath sounds. Absent: accessory muscle use, rales, rhonchi, wheezes - Cardiovascular Cardiovascular exam: Present: RRR, +S1, +S2. Absent: diastolic murmur, gallop, rubs, systolic murmur - GI/Abdominal GI/Abdominal exam: Present: normal bowel sounds, soft, no peritoneal signs. Absent: distended, tenderness - Extremities Exam Extremities exam: Present: warm, radial pulses palpable and symmetrical. Absent : calf tenderness, cyanotic, pedal edema - Neurological Exam Neurological exam: Present: CN II-XII intact, oriented X3, no focal deficits. Absent: pronater drift, facial droop, speech deficit - Skin Skin exam: Present: dry, intact Internal Medicine: Result - Labs CBC & Chem 7: 01/21/18 06:19 01/21/18 06:19 Labs: Short CBC 01/21/18 Range/Units 06:19 WBC 12.2 H (4.3-11.1) K/mcL Hgb 11.1 L (11.5-15.4) g/dL Hct 34.2 L (35.3-44.9) % Plt Count 315 (140-400) K/mcL Neutrophils # 10.5 H (1.6-8.9) K/mcL BMP 01/21/18 06:19 Sodium 141 Potassium 4.3 Chloride 106 Carbon Dioxide 27 BUN 20 Creatinine 0.50 L Glucose 204 H Calcium 9.2 Consult Discharge Plan - Plan Referrals: Ray Garcia MD [Primary Care Provider] -
[2018-01-21] MEDS: Latanoprost 2.5 ML BOTTLE BOTH EYES SCH (22:56)
[2018-01-22 01:58] LABS: Basophils % 0.2 %; Hemoglobin 12.1 g/dL (11.5-15.4); Immature Granulocytes % 3.2 % (0-4); Lymphocytes # 0.7 K/mcL (0.6-4.6); Lymphocytes % 5.4 %; Mean Corpuscular HGB Conc 31.8 g/dL (31.6-35.5); Mean Corpuscular Hemoglobin 27.3 pg (28.0-33.3); Mean Corpuscular Volume 85.6 fL (83.0-100.0); Mean Platelet Volume 9.5 fL (9.4-12.4); Monocytes # 0.5 K/mcL (0.0-1.3); Monocytes % 3.6 %; Neutrophils # 11.3 K/mcL (1.6-8.9); Platelet Count 339 K/mcL (140-400); Red Blood Count 4.44 M/mcL (3.82-4.97); Red Cell Distribution Width 14.7 % (11.5-14.5); Segmented Neutrophils % 87.6 %
[2018-01-22 02:16] LABS: BUN/Creatinine Ratio 34 (6-26); Blood Urea Nitrogen 22 mg/dL (8-23); Calcium 9.5 mg/dL (8.6-10.3); Carbon Dioxide 27 mEq/L (23-29); Chloride 100 mEq/L (98-107); Glucose 336 mg/dL (70-105); Osmolality,Calculated 307 (280-300); Potassium 4.1 mEq/L (3.5-5.1); Sodium 140 mEq/L (136-145); eGFR For African Americans > 60 (> 60); eGFR For Non-African Americans > 60 (> 60)
[2018-01-22] MEDS: Ipratropium/Albuterol Neb 3 ML IH SCH ×6 (03:50→23:42)
[2018-01-22] MEDS: *HR* Heparin 5,000 UNIT/ML VIAL SQ SCH ×3 (05:05→21:31)
[2018-01-22] MEDS: Insulin LISPRO 300 UNITS/3 ML VIAL SQ SCH ×4 (08:41→21:28)
[2018-01-22] MEDS: cefTRIAXone 1,000 MG in Water for inj. (sterile) 20 ML 10 ML IVP SCH (08:42)
[2018-01-22] MEDS: Dexamethasone 4 MG/ML VIAL IVP SCH ×2 (08:42→21:31)
[2018-01-22] MEDS: Aspirin Enteric Coated 81 MG Tablet PO SCH (08:43)
[2018-01-22] MEDS: (Cyclosporine [Restasis] 1 EACH) OP SCH ×2 (08:44→21:30)
[2018-01-22] MEDS: Latanoprost 2.5 ML BOTTLE BOTH EYES SCH (17:24)
--- NOTE | 2018-01-22 19:29 | Internal Med Progress Note ---
Date of Encounter: 01/22/18 Time of Encounter: 13:27 - Assessment and plan (1) COPD with acute exacerbation Current Visit: No Status: Acute Assessment and plan: Wheezing continues to improve. Patient feels better-we will ambulate the patient per nursing-we will begin to de-escalate steroid Continue with oxygen patient is down to her home oxygen level 2 and half liters Bronchodilators Patient has had slightly elevated white count however she is on steroids no fever continue to monitor Continue with Rocephin (2) Acute and chronic respiratory failure ([id number]-[id number]) Current Visit: No Status: Acute Assessment and plan: Acute on chronic hypoxic respiratory failure secondary to acute COPD exacerbation due to acute bacterial bronchitis She is improving she is down to 2.5 L nasal cannula she normally wears 2-1/2 home we will continue to wean oxygen Continue dexamethasone IV-we will begin to taper Continue Rocephin Bronchodilators every 4 hours Incentive spirometry Qualifiers: Respiratory failure complication: hypoxia Qualified Code(s): J96.21 - Acute and chronic respiratory failure with hypoxia (3) Diabetes Current Visit: No Status: Chronic Assessment and plan: Insulin sliding scale Accu-Cheks before meals at bedtime-adjust as needed. Since patient is on steroids Qualifiers: Diabetes mellitus type: type 2 Diabetes mellitus ferry terminal supervisor insulin use: without ferry terminal supervisor use Diabetes mellitus complication status: without complication Qualified Code(s): E11.9 - Type 2 diabetes mellitus without complications (4) GERD (gastroesophageal reflux disease) Current Visit: No Status: Chronic Assessment and plan: Continue with PPI Qualifiers: Esophagitis presence: without esophagitis Qualified Code(s): K21.9 - Gastro -esophageal reflux disease without esophagitis (5) Hyperlipidemia Current Visit: No Status: Chronic Assessment and plan: Continue a statin Qualifiers: Hyperlipidemia type: mixed hyperlipidemia Qualified Code(s): E78.2 - Mixed hyperlipidemia (6) DVT prophylaxis Current Visit: No Status: Acute Assessment and plan: Heparin subcutaneous - Time Spent With Patient Total time spent is greater than 50% in coordination of care (as documented) at patient's floor/unit and/or counseling patient: - Subjective Interval history: I did see the patient at bedside, patient states that she does feel better, she is at her baseline oxygen use 2.5 L sats are stable. Patient ambulate with nursing staff patient has been ambulating in the room with oxygen - Constitutional Vitals: Temp Pulse Resp BP Pulse Ox 98.2 F 95 18 119/74 94 01/22/18 15:57 01/22/18 15:57 01/22/18 15:57 01/22/18 15:57 01/22/18 15:57 General appearance: Present: A&O X 3 - Head Head exam: Present: atraumatic, normocephalic - Eye Eye exam: Present: PERRL, conjuntiva pink, sclera anicteric Pupils: Present: PERRL - Neck Neck exam general surgery: Present: supple, trachea midline. Absent: lymphadenopathy - Respiratory Respiratory exam: Present: wheezes. Absent: accessory muscle use, rales, rhonchi - Cardiovascular Cardiovascular exam: Present: RRR, +S1, +S2. Absent: diastolic murmur, gallop, rubs, systolic murmur - GI/Abdominal GI/Abdominal exam: Present: normal bowel sounds, soft, no peritoneal signs. Absent: distended, tenderness - Extremities Exam Extremities exam: Present: warm, radial pulses palpable and symmetrical. Absent : calf tenderness, cyanotic, pedal edema - Neurological Exam Neurological exam: Present: CN II-XII intact, oriented X3, no focal deficits. Absent: pronater drift, facial droop, speech deficit - Skin Skin exam: Present: dry, intact Internal Medicine: Result - Labs CBC & Chem 7: 01/22/18 01:22 01/22/18 01:22 Labs: Short CBC 01/22/18 Range/Units 01:22 WBC 12.9 H (4.3-11.1) K/mcL Hgb 12.1 (11.5-15.4) g/dL Hct 38.0 (35.3-44.9) % Plt Count 339 (140-400) K/mcL Neutrophils # 11.3 H (1.6-8.9) K/mcL BMP 01/22/18 01:22 Sodium 140 Potassium 4.1 Chloride 100 Carbon Dioxide 27 BUN 22 Creatinine 0.64 Glucose 336 H Calcium 9.5 Consult Discharge Plan - Plan Referrals: Ray Garcia MD [Primary Care Provider] -
[2018-01-23] MEDS: Ipratropium/Albuterol Neb 3 ML IH SCH ×6 (04:45→23:56)
[2018-01-23] MEDS: *HR* Heparin 5,000 UNIT/ML VIAL SQ SCH ×3 (05:41→21:24)
[2018-01-23 06:21] LABS: Hematocrit 39.4 % (35.3-44.9); Hemoglobin 12.4 g/dL (11.5-15.4); Mean Corpuscular HGB Conc 31.5 g/dL (31.6-35.5); Mean Corpuscular Hemoglobin 26.8 pg (28.0-33.3); Mean Corpuscular Volume 85.3 fL (83.0-100.0); Mean Platelet Volume 9.7 fL (9.4-12.4); Platelet Count 346 K/mcL (140-400); Red Blood Count 4.62 M/mcL (3.82-4.97); Red Cell Distribution Width 14.6 % (11.5-14.5)
[2018-01-23 06:43] LABS: BUN/Creatinine Ratio 51 (6-26); Blood Urea Nitrogen 29 mg/dL (8-23); Calcium 9.4 mg/dL (8.6-10.3); Carbon Dioxide 30 mEq/L (23-29); Chloride 100 mEq/L (98-107); Glucose 187 mg/dL (70-105); Osmolality,Calculated 295 (280-300); Potassium 4.3 mEq/L (3.5-5.1); Sodium 137 mEq/L (136-145); eGFR For African Americans > 60 (> 60); eGFR For Non-African Americans > 60 (> 60)
[2018-01-23 07:18] LABS: Eosinophils # 0.1 K/mcL (0.0-0.6); Lymphocytes # 0.8 K/mcL (0.6-4.6); Monocytes # 0.5 K/mcL (0.0-1.3); Neutrophils # 12.1 K/mcL (1.6-8.9); Platelet Estimate Normal (Normal)
[2018-01-23] MEDS: cefTRIAXone 1,000 MG in Water for inj. (sterile) 20 ML 10 ML IVP SCH (08:56)
[2018-01-23] MEDS: Aspirin Enteric Coated 81 MG Tablet PO SCH (08:56)
[2018-01-23] MEDS: Dexamethasone 4 MG/ML VIAL IVP SCH (08:56)
[2018-01-23] MEDS: Insulin LISPRO 300 UNITS/3 ML VIAL SQ SCH ×4 (08:58→21:26)
[2018-01-23] MEDS: (Cyclosporine [Restasis] 1 EACH) OP SCH ×2 (09:01→21:25)
[2018-01-23] MEDS: predniSONE 20 MG TABLET PO SCH (09:40)
--- NOTE | 2018-01-23 10:47 | Internal Med Progress Note ---
Date of Encounter: 01/23/18 Time of Encounter: 10:45 - Assessment and plan (1) COPD with acute exacerbation Current Visit: No Status: Acute Assessment and plan: Wheezing continues to improve. Patient feels better-we will ambulate the patient per nursing-we will begin to de-escalate steroid Continue with oxygen patient is down to her home oxygen level 2 and half liters Bronchodilators Patient has had slightly elevated white count however she is on steroids no fever continue to monitor Continue with Rocephin (2) Acute and chronic respiratory failure ([id number]) Current Visit: Yes Status: Acute Assessment and plan: Acute on chronic hypoxic respiratory failure secondary to acute COPD exacerbation due to acute bacterial bronchitis She is improving she is down to 2.5 L nasal cannula she normally wears 2-1/2 home we will continue to wean oxygen We will switch to oral steroid Continue Rocephin Bronchodilators every 4 hours Incentive spirometry Qualifiers: Respiratory failure complication: hypoxia Qualified Code(s): J96.21 - Acute and chronic respiratory failure with hypoxia (3) Diabetes Current Visit: No Status: Chronic Assessment and plan: Insulin sliding scale Accu-Cheks before meals at bedtime-adjust as needed. Since patient is on steroids Qualifiers: Diabetes mellitus type: type 2 Diabetes mellitus [facility] insulin use: without truck terminal manager use Diabetes mellitus complication status: without complication Qualified Code(s): E11.9 - Type 2 diabetes mellitus without complications (4) GERD (gastroesophageal reflux disease) Current Visit: No Status: Chronic Assessment and plan: Continue with PPI Qualifiers: Esophagitis presence: without esophagitis Qualified Code(s): K21.9 - Gastro -esophageal reflux disease without esophagitis (5) Hyperlipidemia Current Visit: No Status: Chronic Assessment and plan: Continue a statin Qualifiers: Hyperlipidemia type: mixed hyperlipidemia Qualified Code(s): E78.2 - Mixed hyperlipidemia (6) DVT prophylaxis Current Visit: No Status: Acute Assessment and plan: Heparin subcutaneous - Time Spent With Patient Total time spent is greater than 50% in coordination of care (as documented) at patient's floor/unit and/or counseling patient: - Subjective Interval history: I did see the patient at bedside, patient states that she does feel better, she is at her baseline oxygen use 2.5 L sats are stable. Continued to have cough and sputum will add some Mucinex. Encourage to ambulate. We did discuss possible discharge however will wait until a.m. monitor her breathing during ambulation Anticipate possible discharge tomorrow Reviewed treatment plan with patient Verbalizes understanding - Constitutional Vitals: Temp Pulse Resp BP Pulse Ox 98.1 F 90 16 119/76 99 01/23/18 07:05 01/23/18 07:05 01/23/18 07:40 01/23/18 07:05 01/23/18 07:40 General appearance: Present: A&O X 3 - Head Head exam: Present: atraumatic, normocephalic - Eye Eye exam: Present: PERRL, conjuntiva pink, sclera anicteric Pupils: Present: PERRL - Neck Neck exam general surgery: Present: supple, trachea midline. Absent: lymphadenopathy - Respiratory Respiratory exam: Present: wheezes. Absent: accessory muscle use, rales, rhonchi - Cardiovascular Cardiovascular exam: Present: RRR, +S1, +S2. Absent: diastolic murmur, gallop, rubs, systolic murmur - GI/Abdominal GI/Abdominal exam: Present: normal bowel sounds, soft, no peritoneal signs. Absent: distended, tenderness - Extremities Exam Extremities exam: Present: warm, radial pulses palpable and symmetrical. Absent : calf tenderness, cyanotic, pedal edema - Neurological Exam Neurological exam: Present: CN II-XII intact, oriented X3, no focal deficits. Absent: pronater drift, facial droop, speech deficit - Skin Skin exam: Present: dry, intact Internal Medicine: Result - Labs CBC & Chem 7: 01/23/18 05:34 01/23/18 05:34 Labs: Short CBC 01/23/18 Range/Units 05:34 WBC 13.6 H (4.3-11.1) K/mcL Hgb 12.4 (11.5-15.4) g/dL Hct 39.4 (35.3-44.9) % Plt Count 346 (140-400) K/mcL Neutrophils # 12.1 H (1.6-8.9) K/mcL BMP 01/23/18 05:34 Sodium 137 Potassium 4.3 Chloride 100 Carbon Dioxide 30 H BUN 29 H Creatinine 0.57 L Glucose 187 H Calcium 9.4 Consult Discharge Plan - Plan Referrals: Ray Garcia MD [Primary Care Provider] - 01/30/18 10:00 am
[2018-01-23] MEDS: Latanoprost 2.5 ML BOTTLE BOTH EYES SCH (21:25)
[2018-01-24] MEDS: Ipratropium/Albuterol Neb 3 ML IH SCH ×5 (03:22→19:50)
[2018-01-24] MEDS: *HR* Heparin 5,000 UNIT/ML VIAL SQ SCH ×3 (05:56→20:45)
[2018-01-24] MEDS: Insulin LISPRO 300 UNITS/3 ML VIAL SQ SCH ×4 (08:17→20:53)
[2018-01-24] MEDS: cefTRIAXone 1,000 MG in Water for inj. (sterile) 20 ML 10 ML IVP SCH (08:19)
[2018-01-24] MEDS: Aspirin Enteric Coated 81 MG Tablet PO SCH (08:20)
[2018-01-24] MEDS: predniSONE 20 MG TABLET PO SCH (08:20)
[2018-01-24] MEDS: (Cyclosporine [Restasis] 1 EACH) OP SCH ×2 (08:20→20:47)
[2018-01-24 10:25] LABS: Basophils # 0.1 K/mcL (0.0-0.2); Basophils % 0.5 %; Eosinophils # 0.1 K/mcL (0.0-0.6); Eosinophils % 0.3 %; Hematocrit 40.3 % (35.3-44.9); Hemoglobin 12.8 g/dL (11.5-15.4); Lymphocytes # 2.2 K/mcL (0.6-4.6); Lymphocytes % 13.7 %; Mean Corpuscular HGB Conc 31.8 g/dL (31.6-35.5); Mean Corpuscular Hemoglobin 27.2 pg (28.0-33.3); Mean Corpuscular Volume 85.6 fL (83.0-100.0); Mean Platelet Volume 9.2 fL (9.4-12.4); Monocytes % 6.4 %; Neutrophils # 11.8 K/mcL (1.6-8.9); Platelet Count 334 K/mcL (140-400); Red Blood Count 4.71 M/mcL (3.82-4.97); Red Cell Distribution Width 14.6 % (11.5-14.5); Segmented Neutrophils % 74.1 %
[2018-01-24 10:50] LABS: BUN/Creatinine Ratio 48 (6-26); Blood Urea Nitrogen 32 mg/dL (8-23); Calcium 9.1 mg/dL (8.6-10.3); Carbon Dioxide 27 mEq/L (23-29); Chloride 99 mEq/L (98-107); Glucose 250 mg/dL (70-105); Osmolality,Calculated 295 (280-300); Potassium 3.9 mEq/L (3.5-5.1); Sodium 135 mEq/L (136-145); eGFR For African Americans > 60 (> 60); eGFR For Non-African Americans > 60 (> 60)
--- NOTE | 2018-01-24 14:20 | Internal Med Progress Note ---
Date of Encounter: 01/24/18 Time of Encounter: 14:18 - Assessment and plan (1) COPD with acute exacerbation Current Visit: No Status: Acute Assessment and plan: Wheezing continues to improve. Patient feels better-ambulating and maintaining oxygen saturation. Continue with oxygen patient is down to her home oxygen level 2 and half liters Bronchodilators Patient has had slightly elevated white count however she is on steroids no fever continue to monitor Continue with Rocephin (2) Acute and chronic respiratory failure (azwit-hu-egxgudk) Current Visit: Yes Status: Acute Assessment and plan: Acute on chronic hypoxic respiratory failure secondary to acute COPD exacerbation due to acute bacterial bronchitis She is improving she is down to 2.5 L nasal cannula she normally wears 2-1/2 home we will continue to wean oxygen Continue Rocephin Bronchodilators every 4 hours Incentive spirometry Qualifiers: Respiratory failure complication: hypoxia Qualified Code(s): J96.21 - Acute and chronic respiratory failure with hypoxia (3) Diabetes Current Visit: No Status: Chronic Assessment and plan: Insulin sliding scale Accu-Cheks before meals at bedtime-adjust as needed. Since patient is on steroids Qualifiers: Diabetes mellitus type: type 2 Diabetes mellitus ferry terminal agent insulin use: without skilled nursing use Diabetes mellitus complication status: without complication Qualified Code(s): E11.9 - Type 2 diabetes mellitus without complications (4) GERD (gastroesophageal reflux disease) Current Visit: No Status: Chronic Assessment and plan: Continue with PPI Qualifiers: Esophagitis presence: without esophagitis Qualified Code(s): K21.9 - Gastro -esophageal reflux disease without esophagitis (5) Hyperlipidemia Current Visit: No Status: Chronic Assessment and plan: Continue a statin Qualifiers: Hyperlipidemia type: mixed hyperlipidemia Qualified Code(s): E78.2 - Mixed hyperlipidemia (6) Leukocytosis Current Visit: Yes Status: Acute Assessment and plan: White count has continued to climb over the past few days 15.9 today I suspect this is related to steroid use, will monitor overnight continue with antibiotics patient is afebrile Qualifiers: Leukocytosis type: unspecified Qualified Code(s): D72.829 - Elevated white blood cell count, unspecified (7) DVT prophylaxis Current Visit: No Status: Acute Assessment and plan: Heparin subcutaneous - Time Spent With Patient Total time spent is greater than 50% in coordination of care (as documented) at patient's floor/unit and/or counseling patient: - Subjective Interval history: I did see the patient at bedside, patient states that she does feel better, she is at her baseline oxygen use 2.5 L sats are stable. Cough is improving, decreasing sputum production - Constitutional Vitals: Temp Pulse Resp BP Pulse Ox 99.0 F 70 18 131/80 96 01/24/18 11:57 01/24/18 11:57 01/24/18 11:57 01/24/18 11:57 01/24/18 12:41 General appearance: Present: A&O X 3 - Head Head exam: Present: atraumatic, normocephalic - Eye Eye exam: Present: PERRL, conjuntiva pink, sclera anicteric Pupils: Present: PERRL - Neck Neck exam general surgery: Present: supple, trachea midline. Absent: lymphadenopathy - Respiratory Respiratory exam: Present: wheezes. Absent: accessory muscle use, rales, rhonchi - Cardiovascular Cardiovascular exam: Present: RRR, +S1, +S2. Absent: diastolic murmur, gallop, rubs, systolic murmur - GI/Abdominal GI/Abdominal exam: Present: normal bowel sounds, soft, no peritoneal signs. Absent: distended, tenderness - Extremities Exam Extremities exam: Present: warm, radial pulses palpable and symmetrical. Absent : calf tenderness, cyanotic, pedal edema - Neurological Exam Neurological exam: Present: CN II-XII intact, oriented X3, no focal deficits. Absent: pronater drift, facial droop, speech deficit - Skin Skin exam: Present: dry, intact Internal Medicine: Result - Labs CBC & Chem 7: 01/24/18 10:04 01/24/18 10:04 Labs: Short CBC 01/24/18 Range/Units 10:04 WBC 15.9 H (4.3-11.1) K/mcL Hgb 12.8 (11.5-15.4) g/dL Hct 40.3 (35.3-44.9) % Plt Count 334 (140-400) K/mcL Neutrophils # 11.8 H (1.6-8.9) K/mcL BMP 01/24/18 10:04 Sodium 135 L Potassium 3.9 Chloride 99 Carbon Dioxide 27 BUN 32 H Creatinine 0.67 Glucose 250 H Calcium 9.1 Consult Discharge Plan - Plan Referrals: Ray Garcia MD [Primary Care Provider] - 01/30/18 10:00 am
[2018-01-24] MEDS: Latanoprost 2.5 ML BOTTLE BOTH EYES SCH (17:52)
[2018-01-25] MEDS: Ipratropium/Albuterol Neb 3 ML IH SCH ×4 (00:45→11:41)
[2018-01-25] MEDS: *HR* Heparin 5,000 UNIT/ML VIAL SQ SCH (06:07)
[2018-01-25 07:52] VITALS: BP 126/78
[2018-01-25] MEDS: Insulin LISPRO 300 UNITS/3 ML VIAL SQ SCH (07:54)
[2018-01-25] MEDS: cefTRIAXone 1,000 MG in Water for inj. (sterile) 20 ML 10 ML IVP SCH (08:25)
[2018-01-25] MEDS: Aspirin Enteric Coated 81 MG Tablet PO SCH (08:26)
[2018-01-25] MEDS: (Cyclosporine [Restasis] 1 EACH) OP SCH (08:26)
[2018-01-25 08:36] LABS: Hematocrit 39.3 % (35.3-44.9); Hemoglobin 12.6 g/dL (11.5-15.4); Lymphocytes # 3.1 K/mcL (0.6-4.6); Mean Corpuscular HGB Conc 32.1 g/dL (31.6-35.5); Mean Corpuscular Hemoglobin 27.1 pg (28.0-33.3); Mean Corpuscular Volume 84.5 fL (83.0-100.0); Mean Platelet Volume 9.3 fL (9.4-12.4); Nucleated Red Blood Cells 0.1 /100 WBC (0); Platelet Count 293 K/mcL (140-400); Red Blood Count 4.65 M/mcL (3.82-4.97); Red Cell Distribution Width 14.8 % (11.5-14.5)
[2018-01-25 08:52] LABS: BUN/Creatinine Ratio 50 (6-26); Blood Urea Nitrogen 30 mg/dL (8-23); Calcium 9.3 mg/dL (8.6-10.3); Carbon Dioxide 30 mEq/L (23-29); Chloride 102 mEq/L (98-107); Glucose 97 mg/dL (70-105); Osmolality,Calculated 296 (280-300); Potassium 4.1 mEq/L (3.5-5.1); Sodium 140 mEq/L (136-145); eGFR For African Americans > 60 (> 60); eGFR For Non-African Americans > 60 (> 60)
[2018-01-25] MEDS ORDERED: predniSONE 20 MG TABLET PO SCH (09:00)
[2018-01-25 09:11] LABS: Eosinophils # 0.2 K/mcL (0.0-0.6); Monocytes # 0.9 K/mcL (0.0-1.3); Neutrophils # 11.2 K/mcL (1.6-8.9); Platelet Estimate Normal (Normal)
--- NOTE | 2018-01-25 09:43 | Discharge Summary ---
- NOTES TO OUTPATIENT PROVIDER Notes to Outpatient Provider: COPD exacerbation-continue with steroid taper Date of Encounter: 01/25/18 Time of Encounter: 09:43 - Discharge Diagnosis (1) COPD with acute exacerbation Priority: Primary Status: Acute (2) Acute and chronic respiratory failure ([id number]) Priority: Secondary Status: Acute Qualifiers: Respiratory failure complication: hypoxia Qualified Code(s): J96.21 - Acute and chronic respiratory failure with hypoxia (3) Diabetes Priority: Secondary Status: Chronic Qualifiers: Diabetes mellitus type: type 2 Diabetes mellitus nursing home insulin use: without nursing home use Diabetes mellitus complication status: without complication Qualified Code(s): E11.9 - Type 2 diabetes mellitus without complications (4) GERD (gastroesophageal reflux disease) Priority: Secondary Status: Chronic Qualifiers: Esophagitis presence: without esophagitis Qualified Code(s): K21.9 - Gastro -esophageal reflux disease without esophagitis (5) Hyperlipidemia Priority: Secondary Status: Chronic Qualifiers: Hyperlipidemia type: mixed hyperlipidemia Qualified Code(s): E78.2 - Mixed hyperlipidemia (6) Leukocytosis Priority: Secondary Status: Acute Qualifiers: Leukocytosis type: unspecified Qualified Code(s): D72.829 - Elevated white blood cell count, unspecified Hospital course: Ms. Leon is a 62 year old female past medical history of COPD she is oxygen dependent on 2.5 L history depression diastolic heart failure diabetes type 2 [id number]-qljrycvdn she was recently discharged from this hospital on December 25 after being treated with prednisone and Z-Kai. She presented back to the facility with complaints of cough green phlegm chills shortness of breath. Chest x-ray did not show any acute cardiac or pulmonary disease no leukocytosis on presentation she was afebrile she has a history of allergy to Solu-Medrol was initiated on Decadron and given Rocephin. She was requiring high flow oxygen to maintain sats. After few days of steroids and bronchodilators patient 's respiratory state improved. Wheezing decreased as well as cough and sputum production. Eventually she was converted to oral prednisone and has been tolerating well. She did have a spike in her white count however I suspect this is related to her use of steroids. She has been afebrile she completed a 5 day course of Rocephin. She does have home oxygen and is at her baseline oxygen flow 2.5. We will continue patient's home bronchodilators we will add a steroid taper. I did advise patient to continue medications as prescribed. Advised her to follow-up with her print manager as well as primary care physician since these providers know her best and can adjust medications accordingly. Patient verbalized understanding she is hemodynamically stable at this time and is ready for discharge. - Time Spent with Patient Total time spent providing and/or coordinating discharge services: - Discharge Medications Prescriptions: predniSONE [PredniSONE] 10 mg PO DAILY #26 tablet Home Medications: Albuterol Sulfate [Proair Hfa] 2 puff IH Q4H PRN 07/14/16 [History] Atorvastatin Calcium [Lipitor] 80 mg PO QAM 07/14/16 [History] Sertraline [Zoloft] 50 mg PO DAILY 07/15/16 [History] Aspirin Enteric Coated [Aspirin EC] 81 mg PO DAILY 10/22/16 [History] Cyanocobalamin (Vitamin B-12) [Vitamin B-12] 1,000 mcg PO DAILY 10/22/16 [ History] Cyclosporine [Restasis] 1 each OP BID 10/22/16 [History] Ferrous Sulfate 325 mg PO DAILY 10/22/16 [History] Furosemide [Lasix] 20 mg PO DAILY 10/22/16 [History] Travoprost [Travatan Z] 1 drop OP QPM 10/22/16 [History] metFORMIN [Glucophage] 500 mg PO BIDWM #60 tablet 10/27/16 [Rx] Cyclobenzaprine HCl 10 mg PO HS 04/01/17 [History] Ergocalciferol (VITAMIN D2) [Vitamin D2] 50,000 unit PO QWEEK 04/01/17 [History] Umeclidinium [place] [Incruse Ellipta] 1 puff IH DAILY 04/01/17 [History] Nitroglycerin 0.4 mg PO Q5M PRN 07/08/17 [History] Ezetimibe [Zetia] 10 mg PO DAILY 09/01/17 [History] Albuterol Neb [Proventil Neb] 2.5 mg IH TID 09/22/17 [History] Metoprolol [Lopressor] 12.5 mg PO DAILY 09/22/17 [History] Oxygen 2.5 l NS AD 09/22/17 [History] Potassium Chloride 20 meq PO DAILY 09/22/17 [History] Loratadine [Claritin] 10 mg PO DAILY #30 tablet 09/26/17 [Rx] Dapagliflozin Propanediol [Farxiga] 5 mg PO DAILY 12/19/17 [History] Fluticasone Propionate Nasal [Flonase] 1 spray NS DAILY 12/19/17 [History] Budesonide/Formoterol 160/4.5 [Symbicort 160/4.5] 2 puff IH BIDR 01/19/18 [ History] predniSONE [PredniSONE] 10 mg PO DAILY #26 tablet 01/25/18 [Rx] Allergies/Adverse Reactions: 3 Allergy/AdvReac Type Severity Reaction Status Date / Time acetaminophen [From Vicodin] AdvReac Headache Verified 01/19/18 17:41 hydrocodone [From Vicodin] AdvReac Headache Verified 01/19/18 17:41 methylprednisolone AdvReac Itching Verified 01/19/18 17:41 [From Solu-Medrol] Date of admission: 01/23/18 21:04 Primary care physician: Ray Garcia Discharging clinician: Yolanda Cochran Anticipated date of discharge: 01/25/18 - Constitutional Vitals: Temp Pulse Resp BP Pulse Ox 98.1 F 104 16 126/78 91 01/25/18 07:51 01/25/18 07:51 01/25/18 07:51 01/25/18 07:51 01/25/18 07:51 General appearance: Present: A&O X 3 - Head Head exam: Present: atraumatic, normocephalic - Eye Eye exam: Present: PERRL, conjuntiva pink, sclera anicteric Pupils: Present: PERRL - Neck Neck exam general surgery: Present: supple, trachea midline. Absent: lymphadenopathy - Respiratory Respiratory exam: Present: CTAB. Absent: accessory muscle use, rales, rhonchi, wheezes - Cardiovascular Cardiovascular exam: Present: RRR, +S1, +S2. Absent: diastolic murmur, gallop, rubs, systolic murmur - GI/Abdominal GI/Abdominal exam: Present: normal bowel sounds, soft, no peritoneal signs. Absent: distended, tenderness - Extremities Exam Extremities exam: Present: warm, radial pulses palpable and symmetrical. Absent : calf tenderness, cyanotic, pedal edema - Neurological Exam Neurological exam: Present: CN II-XII intact, oriented X3, no focal deficits. Absent: pronater drift, facial droop, speech deficit - Skin Skin exam: Present: dry, intact - Patient Status Disposition: Home, Self-Care Condition: Undetermined Functional capacity at discharge: independent ambulation Overall status at discharge: patient is back to baseline - Discharge Instructions Follow Up With: Ray Garcia MD [Primary Care Provider] - 01/30/18 10:00 am Connie Rivera MD [Partnered Physician] - - Diet and Activity Activity: wear oxygen at all times Diet: advance to your usual diet
== END 2018-01-25 12:43 | disposition home or self-care (01) | DRG 190 ==
LOC: 3BNU 16:52 → EMEROO 16:52 → 3BNU 20:56
PROVIDERS: ADMIT Internal Medicine Hematology & Oncology; ATTEND Internal Medicine Hematology & Oncology

== ENCOUNTER 2018-03-21 01:29 | Inpatient (IN) ==
[2018-03-21] MEDS ORDERED: Ipratropium/Albuterol Neb 3 ML IH ONE (01:38)
[2018-03-21] MEDS ORDERED: methylPREDNISolone 125 MG/2 ML VIAL IVP ONE (01:42)
[2018-03-21 02:15] LABS: Basophils # 0.1 K/mcL (0.0-0.2); Basophils % 0.6 %; Eosinophils # 0.7 K/mcL (0.0-0.6); Eosinophils % 7.4 %; Hematocrit 43.2 % (35.3-44.9); Hemoglobin 13.6 g/dL (11.5-15.4); Immature Granulocytes % 0.3 % (0-4); Lymphocytes # 2.8 K/mcL (0.6-4.6); Lymphocytes % 29.1 %; Mean Corpuscular HGB Conc 31.5 g/dL (31.6-35.5); Mean Corpuscular Hemoglobin 27.3 pg (28.0-33.3); Mean Corpuscular Volume 86.6 fL (83.0-100.0); Mean Platelet Volume 9.3 fL (9.4-12.4); Monocytes # 0.7 K/mcL (0.0-1.3); Monocytes % 7.2 %; Neutrophils # 5.4 K/mcL (1.6-8.9); Platelet Count 284 K/mcL (140-400); Red Blood Count 4.99 M/mcL (3.82-4.97); Red Cell Distribution Width 15.7 % (11.5-14.5); Segmented Neutrophils % 55.4 %
--- NOTE | 2018-03-21 02:15 | Emergency Department Note ---
Disposition Clinical Impression: COPD exacerbation Hypercapnic respiratory failure Qualifiers: Chronicity: acute Qualified Code(s): J96.02 - Acute respiratory failure with hypercapnia Disposition: Admitted As Inpatient Condition: Good Referrals: Ray Garcia MD [Primary Care Provider] - Forms: ED Satisfaction Letter SOB HPI - General Chief Complaint: ED Shortness of Breath/Dyspnea Stated Complaint: difficutly in breathing Time Seen by Provider: 03/21/18 01:33 Source: patient Mode of arrival: EMS Limitations: no limitations Nursing Notes Reviewed: Yes Vital Signs Reviewed: Yes - History of Present Illness 62-year-old female history of COPD wears 2 L at night as well as during the day as needed who presents via EMS with shortness of breath. Reports symptoms started yesterday. She has had a cough with milky productive sputum. Also so short of breath. She denies any chest pain. She denies a prior history of GA, DVT or PE. Reports being hospitalized several times for COPD in the past. Never required CPAP or intubation. No other complaints. Pt Subjective Complaint: shortness of breath, cough Onset (ago): day(s) Context: recent illness Severity: severe Consistency/Duration: constant Improves with: nothing Worsens with: nothing Known history of: COPD Associated symptoms: Reports: cough, sputum production. Denies: chest pain, fever Treatment prior to arrival: bronchodilator Cough present: Yes Cough Description: Involuntary - Related Data Home oxygen amount: 2 liters Home Medications Medication Instructions Recorded Confirmed Albuterol Sulfate [Proair Hfa] 2 puff IH Q4H PRN 07/14/16 01/19/18 Atorvastatin Calcium [Lipitor] 80 mg PO QAM 07/14/16 01/19/18 Sertraline [Zoloft] 50 mg PO DAILY 07/15/16 01/19/18 Aspirin Enteric Coated [Aspirin EC] 81 mg PO DAILY 10/22/16 01/19/18 Cyanocobalamin (Vitamin B-12) 1,000 mcg PO DAILY 10/22/16 01/19/18 [Vitamin B-12] Cyclosporine [Restasis] 1 each OP BID 10/22/16 01/19/18 Ferrous Sulfate 325 mg PO DAILY 10/22/16 01/19/18 Furosemide [Lasix] 20 mg PO DAILY 10/22/16 01/19/18 Travoprost [Travatan Z] 1 drop OP QPM 10/22/16 01/19/18 Cyclobenzaprine HCl 10 mg PO HS 04/01/17 01/19/18 Ergocalciferol (VITAMIN D2) 50,000 unit PO QWEEK 04/01/17 01/19/18 [Vitamin D2] Umeclidinium [place] [Incruse 1 puff IH DAILY 04/01/17 01/19/18 Ellipta] Nitroglycerin 0.4 mg PO Q5M PRN 07/08/17 01/19/18 Ezetimibe [Zetia] 10 mg PO DAILY 09/01/17 01/19/18 Albuterol Neb [Proventil Neb] 2.5 mg IH TID 09/22/17 01/19/18 Metoprolol [Lopressor] 12.5 mg PO DAILY 09/22/17 01/19/18 Oxygen 2.5 l NS AD 09/22/17 01/19/18 Potassium Chloride 20 meq PO DAILY 09/22/17 01/19/18 Dapagliflozin Propanediol [Farxiga] 5 mg PO DAILY 12/19/17 01/19/18 Fluticasone Propionate Nasal 1 spray NS DAILY 12/19/17 01/19/18 [Flonase] Budesonide/Formoterol 160/4.5 2 puff IH BIDR 01/19/18 01/19/18 [Symbicort 160/4.5] Previous Rx's Medication Instructions Recorded metFORMIN [Glucophage] 500 mg PO BIDWM #60 tablet 10/27/16 Loratadine [Claritin] 10 mg PO DAILY #30 tablet 09/26/17 predniSONE [PredniSONE] 10 mg PO DAILY #26 tablet 01/25/18 Allergies Allergy/AdvReac Type Severity Reaction Status Date / Time acetaminophen [From Vicodin] AdvReac Headache Verified 01/19/18 17:41 hydrocodone [From Vicodin] AdvReac Headache Verified 01/19/18 17:41 methylprednisolone AdvReac Itching Verified 01/19/18 17:41 [From Solu-Medrol] All systems ED: reviewed and negative except as stated. Constitutional: Denies: fever Cardiovascular: Denies: chest pain Respiratory: Reports: cough, dyspnea, sputum production Gastrointestinal: Denies: nausea, vomiting Past Medical History - Past Medical History Attestation: Yes The following information was validated with the patient. 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 - Social History Smoking Status: Former smoker Smokeless Tobacco Status: No Alcohol use: Reports: none Drug use: Reports: none Physical Exam - General Limitations: no limitations General appearance: alert, in no apparent distress - Head Head exam: atraumatic, normocephalic - Eye Eye exam: Present: normal appearance - ENT ENT exam: normal exam - Neck Neck exam: Present: normal inspection - Chest Chest inspection: Present: normal inspection, symmetric chest wall rise - Respiratory Respiratory exam: Present: respiratory distress, wheezes, accessory muscle use, prolonged expiratory phase - Cardiovascular Cardiovascular exam: Present: normal rhythm, tachycardia, normal heart sounds - Abdominal Exam Abdominal exam: Present: soft, Non-Tender. Absent: tenderness, distention, rigidity - Extremities Exam Extremities exam: Present: normal inspection, full ROM - Expanded Upper Extremity Exam Shoulder exam: Present: normal inspection, full ROM Arm exam: Present: normal inspection, full ROM Elbow exam: Present: normal inspection, full ROM Forearm/Wrist exam: Present: normal inspection, full ROM Hand exam: Present: normal inspection, full ROM - Expanded Lower Extremity Exam Hip/Pelvis exam: Present: normal inspection, full ROM Upper leg exam: Present: normal inspection, full ROM Knee exam: Present: normal inspection, full ROM Lower leg exam: Present: normal inspection, full ROM Ankle exam: Present: normal inspection, full ROM Foot/toe exam: Present: normal inspection, full ROM - Skin Skin exam: Present: warm, dry Course Course Narrative: Patient seen and examined. Vital signs reviewed. She received 1 DuoNeb treatment in route. Plan for 2 additional as well as Solu-Medrol. There is an allergy in the computer however she says she can take her whenever she gets Benadryl. We will also get labs including troponin. She will likely require admission. - Reevaluation(s) Reevaluation #1: The patient was hitting her call light roughly every 30 seconds stating that she could not breathe. Her pulse oximetry continued to demonstrate appropriate readings. Increased work of breathing with her anxiety. Patient to be given a milligram of Ativan. Reevaluation #2: Patient received the Ativan. She is less stressed. Her VBG demonstrates hypercapnic respiratory acidosis. We will place her on BiPAP at this time and repeat an ABG. Vital Signs Temperature 97.6 F 03/21/18 01:30 Pulse Rate 121 03/21/18 01:30 Respiratory Rate 22 03/21/18 01:30 Blood Pressure 193/105 03/21/18 01:30 O2 Sat by Pulse Oximetry 89 03/21/18 01:30 Temperature 97.6 F 03/21/18 01:30 Pulse Rate 109 03/21/18 04:15 Respiratory Rate 19 03/21/18 04:15 Blood Pressure 104/76 03/21/18 04:15 O2 Sat by Pulse Oximetry 95 03/21/18 04:15 Oxygen Delivery Oxygen Delivery Bipap Shortness of Breath/Dyspnea - MDM Narrative Medical decision making narrative: 62-year-old female with COPD. In distress upon arrival. Improved during her stay. She became a little somnolent during her course secondary to likely Benadryl and Ativan. She was noted have hypercapnic respiratory acidosis. BiPAP was initiated improving her acidosis. Patient received DuoNeb treatments , steroids as well as Levaquin. Admitted to the hospital service for further management. - Lab Data Lab results reviewed: Yes I reviewed the patient's lab results. Result diagrams: 03/21/18 02:02 03/21/18 02:02 Lab Results 03/21/18 03/21/18 03/21/18 Range/Units 02:02 02:02 02:02 WBC 9.7 (4.3-11.1) K/mcL RBC 4.99 H (3.82-4.97) M/mcL Hgb 13.6 (11.5-15.4) g/dL Hct 43.2 (35.3-44.9) % MCV 86.6 (83.0-100.0) fL MCH 27.3 L (28.0-33.3) pg MCHC 31.5 L (31.6-35.5) g/dL RDW 15.7 H (11.5-14.5) % Plt Count 284 (140-400) K/mcL MPV 9.3 L (9.4-12.4) fL Immature Gran % 0.3 (0-4) % Seg Neutrophils % 55.4 % Lymphocytes % 29.1 % Monocytes % 7.2 % Eosinophils % 7.4 % Basophils % 0.6 % Neutrophils # 5.4 (1.6-8.9) K/mcL Lymphocytes # 2.8 (0.6-4.6) K/mcL Monocytes # 0.7 (0.0-1.3) K/mcL Eosinophils # 0.7 H (0.0-0.6) K/mcL Basophils # 0.1 (0.0-0.2) K/mcL Sample Site ABG pH (7.32-7.45) pH Units ABG pCO2 (35-45) mmHg ABG pO2 (85-104) mmHg ABG HCO3 (21-27) mEq/L ABG Total CO2 (20-26) mEq/L ABG O2 Saturation (95-98) % ABG Base Excess (-2 to 3) mEq/L VBG pH (7.32-7.42) pH Units VBG pCO2 (41-51) mmHg VBG pO2 (25-50) mmHg VBG HCO3 (21-27) mEq/L O2 Delivery Device Inspired O2 (1-15=lpm [id number]=%) Sodium 139 (136-145) mEq/L Potassium 4.2 (3.5-5.1) mEq/L Chloride 103 (98-107) mEq/L Carbon Dioxide 28 (23-29) mEq/L BUN 15 (8-23) mg/dL Creatinine 0.69 (0.60-1.20) mg/dL Est GFR ( Amer) > 60 (> 60) Est GFR (Non-Af Amer) > 60 (> 60) BUN/Creatinine Ratio 22 (6-26) Glucose 155 H (70-105) mg/dL Calculated Osmolality 292 (280-300) Calcium 9.8 (8.6-10.3) mg/dL Troponin I < 0.03 (< 0.04) ng/mL B-Natriuretic Peptide 15 (Less than 100) pg/mL 03/21/18 03/21/18 Range/Units 03:08 04:16 WBC (4.3-11.1) K/mcL RBC (3.82-4.97) M/mcL Hgb (11.5-15.4) g/dL Hct (35.3-44.9) % MCV (83.0-100.0) fL MCH (28.0-33.3) pg MCHC (31.6-35.5) g/dL RDW (11.5-14.5) % Plt Count (140-400) K/mcL MPV (9.4-12.4) fL Immature Gran % (0-4) % Seg Neutrophils % % Lymphocytes % % Monocytes % % Eosinophils % % Basophils % % Neutrophils # (1.6-8.9) K/mcL Lymphocytes # (0.6-4.6) K/mcL Monocytes # (0.0-1.3) K/mcL Eosinophils # (0.0-0.6) K/mcL Basophils # (0.0-0.2) K/mcL Sample Site R Radial ABG pH 7.30 L (7.32-7.45) pH Units ABG pCO2 64 H (35-45) mmHg ABG pO2 114 H (85-104) mmHg ABG HCO3 32 H (21-27) mEq/L ABG Total CO2 34 H (20-26) mEq/L ABG O2 Saturation 98 (95-98) % ABG Base Excess 4 H (-2 to 3) mEq/L VBG pH 7.26 L (7.32-7.42) pH Units VBG pCO2 67 H (41-51) mmHg VBG pO2 104 H (25-50) mmHg VBG HCO3 30 H (21-27) mEq/L O2 Delivery Device BiPAP Inspired O2 40.0 (1-15=lpm [id number]=%) Sodium (136-145) mEq/L Potassium (3.5-5.1) mEq/L Chloride (98-107) mEq/L Carbon Dioxide (23-29) mEq/L BUN (8-23) mg/dL Creatinine (0.60-1.20) mg/dL Est GFR ( Amer) (> 60) Est GFR (Non-Af Amer) (> 60) BUN/Creatinine Ratio (6-26) Glucose (70-105) mg/dL Calculated Osmolality (280-300) Calcium (8.6-10.3) mg/dL Troponin I (< 0.04) ng/mL B-Natriuretic Peptide (Less than 100) pg/mL - Radiology Data Radiology results reviewed: Yes I reviewed the patient's radiology results. Chest X-Ray 03/21/18 01:38 IMPRESSION: Negative portable chest. D/ / Delgado Dominguez MD / Delgado Dominguez MD Interpreting Provider: Delgado Dominguez MD - EKG Data EKG attestation: Yes I reviewed and interpreted this EKG. EKG results narrative: EKG demonstrates sinus tachycardia with a rate of 113. Normal axis. Normal intervals. Normal R-wave progression. No gross ST elevations or depressions. No acute ischemic findings. S.B.[email or web address]. - [email or web address] Situation: Demographics, MOA Background: Presenting Complaint, Relevant PMH, Meds, & Allergies Assessment: Vital Signs, Course and respsone to treatment, Exam Concerns, Patient/Family Expectation, Pertinant Lab Results Recommendation: Barrier(s) to disposition, Recommendation based on pending studies, treatments, or consults [email or web address].RCasi Report Given to: Dr. Patt Portillo Repor Time: 04:35
[2018-03-21] MEDS ORDERED: *HR* LORazepam 2 MG/ML VIAL IVP ONE (02:26)
[2018-03-21 02:35] LABS: BUN/Creatinine Ratio 22 (6-26); Blood Urea Nitrogen 15 mg/dL (8-23); Calcium 9.8 mg/dL (8.6-10.3); Carbon Dioxide 28 mEq/L (23-29); Chloride 103 mEq/L (98-107); Glucose 155 mg/dL (70-105); Osmolality,Calculated 292 (280-300); Potassium 4.2 mEq/L (3.5-5.1); Sodium 139 mEq/L (136-145); Troponin I < 0.03 ng/mL (< 0.04); eGFR For Non-African Americans > 60 (> 60)
[2018-03-21 03:11] LABS: VBG HCO3 30 mEq/L (21-27); VBG PCO2 67 mmHg (41-51); VBG PH 7.26 pH Units (7.32-7.42); VBG PO2 104 mmHg (25-50)
--- NOTE | 2018-03-21 03:57 | Emergency Department Note ---
Disposition Clinical Impression: COPD exacerbation Hypercapnic respiratory failure Qualifiers: Chronicity: acute Qualified Code(s): J96.02 - Acute respiratory failure with hypercapnia Disposition: Admitted As Inpatient Condition: Good General Adult HPI - General Chief complaint: ED Shortness of Breath/Dyspnea Stated complaint: difficutly in breathing Time Seen by Provider: 03/21/18 01:33 Source: patient Mode of arrival: EMS Limitations: no limitations Nursing Notes Reviewed: Yes Vital Signs Reviewed: Yes - History of Present Illness Pain Scale: 0 - Related Data Home Medications Medication Instructions Recorded Confirmed Albuterol Sulfate [Proair Hfa] 2 puff IH Q4H PRN 07/14/16 01/19/18 Atorvastatin [place] [Lipitor] 80 mg PO QAM 07/14/16 01/19/18 Sertraline [Zoloft] 50 mg PO DAILY 07/15/16 01/19/18 Aspirin Enteric Coated [Aspirin EC] 81 mg PO DAILY 10/22/16 01/19/18 Cyanocobalamin (Vitamin B-12) 1,000 mcg PO DAILY 10/22/16 01/19/18 [Vitamin B-12] Cyclosporine [Restasis] 1 each OP BID 10/22/16 01/19/18 Ferrous Sulfate 325 mg PO DAILY 10/22/16 01/19/18 Furosemide [Lasix] 20 mg PO DAILY 10/22/16 01/19/18 Travoprost [Travatan Z] 1 drop OP QPM 10/22/16 01/19/18 Cyclobenzaprine HCl 10 mg PO HS 04/01/17 01/19/18 Ergocalciferol (VITAMIN D2) 50,000 unit PO QWEEK 04/01/17 01/19/18 [Vitamin D2] Umeclidinium [place] [Incruse 1 puff IH DAILY 04/01/17 01/19/18 Ellipta] Nitroglycerin 0.4 mg PO Q5M PRN 07/08/17 01/19/18 Ezetimibe [Zetia] 10 mg PO DAILY 09/01/17 01/19/18 Albuterol Neb [Proventil Neb] 2.5 mg IH TID 09/22/17 01/19/18 Metoprolol [Lopressor] 12.5 mg PO DAILY 09/22/17 01/19/18 Oxygen 2.5 l NS AD 09/22/17 01/19/18 Potassium Chloride 20 meq PO DAILY 09/22/17 01/19/18 Dapagliflozin Propanediol [Farxiga] 5 mg PO DAILY 12/19/17 01/19/18 Fluticasone Propionate Nasal 1 spray NS DAILY 12/19/17 01/19/18 [Flonase] Budesonide/Formoterol 160/4.5 2 puff IH BIDR 01/19/18 01/19/18 [Symbicort 160/4.5] Previous Rx's Medication Instructions Recorded metFORMIN [Glucophage] 500 mg PO BIDWM #60 tablet 10/27/16 Loratadine [Claritin] 10 mg PO DAILY #30 tablet 09/26/17 predniSONE [PredniSONE] 10 mg PO DAILY #26 tablet 01/25/18 Allergies Allergy/AdvReac Type Severity Reaction Status Date / Time acetaminophen [From Vicodin] AdvReac Headache Verified 01/19/18 17:41 hydrocodone [From Vicodin] AdvReac Headache Verified 01/19/18 17:41 methylprednisolone AdvReac Itching Verified 01/19/18 17:41 [From Solu-Medrol] Constitutional: Denies: fever Cardiovascular: Denies: chest pain Respiratory: Reports: cough, dyspnea, sputum production Gastrointestinal: Denies: nausea, vomiting Past Medical History - Past Medical History Medical history: Reports: CHF, COPD, diabetes, GERD, glaucoma, hyperlipidemia, hypertension Surgical history: Reports: cataract, hysterectomy 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: Reports: anxiety, depression 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 - Social History Smoking Status: Former smoker Smokeless Tobacco Status: No Alcohol use: Reports: none Drug use: Reports: none Physical Exam - General Limitations: no limitations General appearance: alert, in no apparent distress Course Vital Signs Temperature 97.6 F 03/21/18 01:30 Pulse Rate 121 03/21/18 01:30 Respiratory Rate 22 03/21/18 01:30 Blood Pressure 193/105 03/21/18 01:30 O2 Sat by Pulse Oximetry 89 03/21/18 01:30 Temperature 97.6 F 03/21/18 01:30 Pulse Rate 109 03/21/18 04:15 Respiratory Rate 19 03/21/18 04:15 Blood Pressure 104/76 03/21/18 04:15 O2 Sat by Pulse Oximetry 95 03/21/18 04:15 Oxygen Delivery Oxygen Delivery Bipap Medical Decision Making - Medical Records Medical records reviewed: Yes I reviewed the patient's medical records. - Lab Data Lab results reviewed: Yes I reviewed the patient's lab results. Result diagrams: 03/21/18 02:02 03/21/18 02:02 Lab Results 03/21/18 03/21/18 03/21/18 Range/Units 02:02 02:02 02:02 WBC 9.7 (4.3-11.1) K/mcL RBC 4.99 H (3.82-4.97) M/mcL Hgb 13.6 (11.5-15.4) g/dL Hct 43.2 (35.3-44.9) % MCV 86.6 (83.0-100.0) fL MCH 27.3 L (28.0-33.3) pg MCHC 31.5 L (31.6-35.5) g/dL RDW 15.7 H (11.5-14.5) % Plt Count 284 (140-400) K/mcL MPV 9.3 L (9.4-12.4) fL Immature Gran % 0.3 (0-4) % Seg Neutrophils % 55.4 % Lymphocytes % 29.1 % Monocytes % 7.2 % Eosinophils % 7.4 % Basophils % 0.6 % Neutrophils # 5.4 (1.6-8.9) K/mcL Lymphocytes # 2.8 (0.6-4.6) K/mcL Monocytes # 0.7 (0.0-1.3) K/mcL Eosinophils # 0.7 H (0.0-0.6) K/mcL Basophils # 0.1 (0.0-0.2) K/mcL Sample Site ABG pH (7.32-7.45) pH Units ABG pCO2 (35-45) mmHg ABG pO2 (85-104) mmHg ABG HCO3 (21-27) mEq/L ABG Total CO2 (20-26) mEq/L ABG O2 Saturation (95-98) % ABG Base Excess (-2 to 3) mEq/L VBG pH (7.32-7.42) pH Units VBG pCO2 (41-51) mmHg VBG pO2 (25-50) mmHg VBG HCO3 (21-27) mEq/L O2 Delivery Device Inspired O2 (1-15=lpm [id number]=%) Sodium 139 (136-145) mEq/L Potassium 4.2 (3.5-5.1) mEq/L Chloride 103 (98-107) mEq/L Carbon Dioxide 28 (23-29) mEq/L BUN 15 (8-23) mg/dL Creatinine 0.69 (0.60-1.20) mg/dL Est GFR ( Amer) > 60 (> 60) Est GFR (Non-Af Amer) > 60 (> 60) BUN/Creatinine Ratio 22 (6-26) Glucose 155 H (70-105) mg/dL Calculated Osmolality 292 (280-300) Calcium 9.8 (8.6-10.3) mg/dL Troponin I < 0.03 (< 0.04) ng/mL B-Natriuretic Peptide 15 (Less than 100) pg/mL 03/21/18 03/21/18 Range/Units 03:08 04:16 WBC (4.3-11.1) K/mcL RBC (3.82-4.97) M/mcL Hgb (11.5-15.4) g/dL Hct (35.3-44.9) % MCV (83.0-100.0) fL MCH (28.0-33.3) pg MCHC (31.6-35.5) g/dL RDW (11.5-14.5) % Plt Count (140-400) K/mcL MPV (9.4-12.4) fL Immature Gran % (0-4) % Seg Neutrophils % % Lymphocytes % % Monocytes % % Eosinophils % % Basophils % % Neutrophils # (1.6-8.9) K/mcL Lymphocytes # (0.6-4.6) K/mcL Monocytes # (0.0-1.3) K/mcL Eosinophils # (0.0-0.6) K/mcL Basophils # (0.0-0.2) K/mcL Sample Site R Radial ABG pH 7.30 L (7.32-7.45) pH Units ABG pCO2 64 H (35-45) mmHg ABG pO2 114 H (85-104) mmHg ABG HCO3 32 H (21-27) mEq/L ABG Total CO2 34 H (20-26) mEq/L ABG O2 Saturation 98 (95-98) % ABG Base Excess 4 H (-2 to 3) mEq/L VBG pH 7.26 L (7.32-7.42) pH Units VBG pCO2 67 H (41-51) mmHg VBG pO2 104 H (25-50) mmHg VBG HCO3 30 H (21-27) mEq/L O2 Delivery Device BiPAP Inspired O2 40.0 (1-15=lpm [id number]=%) Sodium (136-145) mEq/L Potassium (3.5-5.1) mEq/L Chloride (98-107) mEq/L Carbon Dioxide (23-29) mEq/L BUN (8-23) mg/dL Creatinine (0.60-1.20) mg/dL Est GFR ( Amer) (> 60) Est GFR (Non-Af Amer) (> 60) BUN/Creatinine Ratio (6-26) Glucose (70-105) mg/dL Calculated Osmolality (280-300) Calcium (8.6-10.3) mg/dL Troponin I (< 0.04) ng/mL B-Natriuretic Peptide (Less than 100) pg/mL - Radiology Data Radiology results reviewed: Yes I reviewed the patient's radiology results. Chest X-Ray 03/21/18 01:38 IMPRESSION: Negative portable chest. D/ / Delgado Dominguez MD / Delgado Dominguez MD Interpreting Provider: Delgado Dominguez MD - EKG Data EKG #1 EKG attestation: Yes I reviewed and interpreted this EKG. EKG results narrative: EKG shows a sinus tachycardia with ventricular rate of 113. No acute ST segment elevation or depression noted. No ectopy. Critical Care Time Critical Care Time: Yes Total Critical Care Time: 45 Attestation: Critical care performed: Time is exclusive of separately billable procedures. Time includes: direct patient care, patient reassessment, coordination of patient care, interpretation of data (laboratory data, radiology data, and respiratory data), review of patient's medical records, medical consultation and documentation of patient care. Procedures included in critical care time: Procedures excluded from critical care time: Attestation Statement - Attestation Attestation: I, Jimmie Ponce MD, personally evaluated this patient and discussed their management with the resident physician. I reviewed the resident's note and agree with the documented findings, medical decision making, and plan of care. 62-year-old female with history of COPD and uses oxygen at home presents to the emergency department by ambulance with a complaint of increased shortness of breath for about 1-1/2 days prior to arrival. There has been some increased cough with white sputum production. No fever. No chest pain. On examination patient is a well-developed well-nourished elderly female in moderate respiratory distress. She is alert. There is no cyanosis or diaphoresis. Breath sounds are decreased bilaterally with scattered bilateral expiratory wheezes. Heart is tachycardic and regular. Abdomen soft and nontender with normal bowel sounds. No pedal edema. Labs, chest x-ray, and EKG reviewed. Patient received triple DuoNeb treatments with some improvement. She was extremely anxious and received Ativan 1 mg IV for her anxiety. Patient was placed on BiPAP. The hospitalist, Dr. Smith, was consulted and accepted admission of the patient.
[2018-03-21 04:22] LABS: ABG Base Excess 4 mEq/L (-2 to 3); ABG HCO3 32 mEq/L (21-27); ABG Oxygen Saturation 98 % (95-98); ABG PCO2 64 mmHg (35-45); ABG PO2 114 mmHg (85-104); ABG TCO2 34 mEq/L (20-26)
[2018-03-21] MEDS ORDERED: Levofloxacin 750 MG/150 ML 750 MG/150 ML BAG IVPB ONE (04:29)
[2018-03-21] MEDS ORDERED: Nitroglycerin 0.4 MG TAB.SUBL SL PRN (05:00)
[2018-03-21] MEDS ORDERED: Dextrose Gel 15 GM/37.5 ML TUBE PO PRN ×3 (05:05→13:07)
--- NOTE | 2018-03-21 05:14 | Internal Med History&Physical ---
Date of Encounter: 03/21/18 Time of Encounter: 05:13 Internal Medicine - H&P: HPI Chief complaint: Shortness of breath Admitted From: Home Plans for Post Hospital Care: Home History of present illness: Ms. Leon is a 62 year old female with severe COPD on home oxygen, hypertension, hyperlipidemia and diabetes it has been admitted on multiple occasions for COPD exacerbations almost every other month who presents now with shortness of breath over the preceding days that has progressively worsened for which reason she called EMS. On arrival she was seen to be in moderate respiratory distress reduced air entry bilaterally and scattered wheezes for which she was placed on BiPAP, IV steroids and antibiotics. Blood gas was suggestive of a hypercapneic process. She received 1 mg of lorazepam for anxiety as well. She reports increasing cough productive of clear phlegm but no chest pain, fever or chills. On review of old records she seemed to have had a spirometry that shows very severe airway obstructive pattern and no response to inhaled bronchodilators seen. At this time she is lying comfortably in bed with her BiPAP in place stating that she feels much better since her arrival. She says she quit smoking a year ago but is not overly adherent to her inhaler therapy. Past Med Surg Social Fam HX - Past Medical History Medical history: CHF, COPD, diabetes, GERD, glaucoma, hyperlipidemia, hypertension Additional medical history: angina, anemia 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: anxiety, depression - Past Surgical History Surgical History: cataract, hysterectomy Additional surgical history: polyp removal - Social History Smoking Status: Former smoker Smokeless Tobacco Status: No Alcohol use: none Drug use: none - Family History Mother Adopted: No Living Status: Hx Family Cancer: Yes (Pancreatic cancer) Father Living Status: Hx Family Cardiac Disorders: Yes Hx Family Endocrine Disorder: Yes (Diabetes) Internal Medicine - H&P: Meds Albuterol Sulfate [Proair Hfa] 2 puff IH Q4H PRN 07/14/16 [History] Atorvastatin Calcium [Lipitor] 80 mg PO QAM 07/14/16 [History] Sertraline [Zoloft] 50 mg PO DAILY 07/15/16 [History] Aspirin Enteric Coated [Aspirin EC] 81 mg PO DAILY 10/22/16 [History] Cyanocobalamin (Vitamin B-12) [Vitamin B-12] 1,000 mcg PO DAILY 10/22/16 [ History] Cyclosporine [Restasis] 1 each OP BID 10/22/16 [History] Ferrous Sulfate 325 mg PO DAILY 10/22/16 [History] Furosemide [Lasix] 20 mg PO DAILY 10/22/16 [History] Travoprost [Travatan Z] 1 drop OP QPM 10/22/16 [History] metFORMIN [Glucophage] 500 mg PO BIDWM #60 tablet 10/27/16 [Rx] Cyclobenzaprine HCl 10 mg PO HS 04/01/17 [History] Ergocalciferol (VITAMIN D2) [Vitamin D2] 50,000 unit PO QWEEK 04/01/17 [History] Umeclidinium [place] [Incruse Ellipta] 1 puff IH DAILY 04/01/17 [History] Nitroglycerin 0.4 mg PO Q5M PRN 07/08/17 [History] Ezetimibe [Zetia] 10 mg PO DAILY 09/01/17 [History] Albuterol Neb [Proventil Neb] 2.5 mg IH TID 09/22/17 [History] Metoprolol [Lopressor] 12.5 mg PO DAILY 09/22/17 [History] Oxygen 2.5 l NS AD 09/22/17 [History] Potassium Chloride 20 meq PO DAILY 09/22/17 [History] Loratadine [Claritin] 10 mg PO DAILY #30 tablet 09/26/17 [Rx] Dapagliflozin Propanediol [Farxiga] 5 mg PO DAILY 12/19/17 [History] Fluticasone Propionate Nasal [Flonase] 1 spray NS DAILY 12/19/17 [History] Budesonide/Formoterol 160/4.5 [Symbicort 160/4.5] 2 puff IH BIDR 01/19/18 [ History] predniSONE [PredniSONE] 10 mg PO DAILY #26 tablet 01/25/18 [Rx] 3 Allergy/AdvReac Type Severity Reaction Status Date / Time acetaminophen [From Vicodin] AdvReac Headache Verified 01/19/18 17:41 hydrocodone [From Vicodin] AdvReac Headache Verified 01/19/18 17:41 methylprednisolone AdvReac Itching Verified 01/19/18 17:41 [From Solu-Medrol] All Systems PM: A 10-system review of systems was performed and is negative for pertinent findings except as documented above in the HPI. - Constitutional Vitals: Temp Pulse Resp BP Pulse Ox 97.6 F 109 19 104/76 95 03/21/18 01:30 03/21/18 04:15 03/21/18 04:15 03/21/18 04:15 03/21/18 04:15 Exam: Vitals: Reviewed General: No acute distress on BiPAP Skin: No lesions or ulcers HEENT: Moist mucous membranes. No conjunctivae pallor. Neck: No lymphadenopathy. No JVD. Chest: Diminished thoracic expansion with poor air entry and scattered wheezes. Heart: Normal S1 & S2; rhythmic. Abdomen: Non-distended, soft and non-tender to palpation. Extremities: No clubbing, cyanosis or edema. Neurological: Awake, alert and oriented to person, place. Psych: Affect appropriate. Internal Med - H&P Results - Labs CBC & Chem 7: 03/21/18 02:02 03/21/18 02:02 - ABG Interpretation Interpretation: ABG interpreted by me Interpretation: respiratory acidosis - EKG Data -: EKG Interpreted by Myself EKG shows normal: sinus rhythm - Assessment and plan (1) Acute and chronic respiratory failure (ghijp-gz-enfddzr) Current Visit: No Status: Acute Assessment and plan: With respiratory acidosis secondary to COPD exacerbation. -Continue NIPPV -Repeat blood gas -Every four-hour nebulizer therapy over the next 24 hours -Close respiratory watch Qualifiers: Respiratory failure complication: hypoxia and hypercapnia Qualified Code(s) : J96.21 - Acute and chronic respiratory failure with hypoxia; J96.22 - Acute and chronic respiratory failure with hypercapnia (2) COPD with acute exacerbation Current Visit: Yes Status: Acute Assessment and plan: We will continue levofloxacin 500 mg by mouth daily Albuterol and ipratropium nebulizer 60 mg prednisone daily which can be tapered if needed (3) Diabetes Current Visit: Yes Status: Chronic Assessment and plan: We will place on insulin sliding scale and every 6 hour Accu-Cheks Qualifiers: Diabetes mellitus type: type 2 Diabetes mellitus fdc insulin use: without fdc use Diabetes mellitus complication status: without complication Qualified Code(s): E11.9 - Type 2 diabetes mellitus without complications (4) Hyperlipidemia Current Visit: Yes Status: Chronic Assessment and plan: Continue high-dose statin therapy Qualifiers: Hyperlipidemia type: mixed hyperlipidemia Qualified Code(s): E78.2 - Mixed hyperlipidemia (5) DVT prophylaxis Current Visit: Yes Status: Acute Assessment and plan: SubQ heparin ordered. - Time Spent With Patient Total time spent is greater than 50% in coordination of care (as documented) at patient's floor/unit and/or counseling patient: 25 - 35 minutes
[2018-03-21] MEDS: Insulin LISPRO 300 UNITS/3 ML VIAL SQ SCH ×4 (06:18→21:22)
[2018-03-21] MEDS: *HR* Heparin 5,000 UNIT/ML VIAL SQ SCH ×3 (06:20→21:18)
[2018-03-21] MEDS: Ipratropium/Albuterol Neb 3 ML IH SCH ×5 (08:07→23:45)
[2018-03-21 08:27] LABS: ABG Base Excess 4 mEq/L (-2 to 3); ABG HCO3 32 mEq/L (21-27); ABG Oxygen Saturation 95 % (95-98); ABG PCO2 62 mmHg (35-45); ABG PH 7.32 pH Units (7.32-7.45); ABG PO2 86 mmHg (85-104); ABG TCO2 34 mEq/L (20-26); Blood Gas PEEP 7 cm H2O; Blood Gas Respiration Rate 8
--- NOTE | 2018-03-21 09:28 | Internal Med Progress Note ---
<Maximo Batista - Last Filed: 03/21/18 12:10> Hospitalist Progress Note - Encounter Date of Encounter: 03/21/18 Time of Encounter: 09:26 - Subjective Interval History: Patient was seen and examined at bedside; reports that she is not feeling much better since admission. Still experiencing shortness of breath. Currently on 5 L of oxygen via oxygen mask. Reports that she has had similar admissions in the past for COPD exacerbation; has been typically treated with scheduled DuoNeb 's and steroids. She reports that these typically help, and her symptoms usually resolve in a few days. She denies fever, chills, productive cough. Admits to mild shortness of breath. Denies having any chest pain or palpitations. No further complaints at this time. - Exam Vitals: Temp Pulse Resp BP Pulse Ox 98.1 F 86 25 109/79 96 03/21/18 07:27 03/21/18 07:27 03/21/18 07:27 03/21/18 07:27 03/21/18 09:03 Exam: General: No acute distress on BiPAP Skin: No lesions or ulcers HEENT: Moist mucous membranes. No conjunctivae pallor. Neck: No lymphadenopathy. No JVD. Chest: Diminished thoracic expansion with poor air entry and scattered wheezes. Heart: Normal S1 & S2; rhythmic. Abdomen: Non-distended, soft and non-tender to palpation. Extremities: No clubbing, cyanosis or edema. Neurological: Awake, alert and oriented to person, place. Psych: Affect appropriate. - Assessment and Plan (1) COPD (chronic obstructive pulmonary disease) Current Visit: No Status: Chronic Assessment and Plan: - Known history of COPD; likely cause of patients acute respiratory failure - Plan as above (2) Diabetes Current Visit: Yes Status: Chronic Assessment and Plan: - Sliding scale insulin (3) Hyperlipidemia Current Visit: Yes Status: Chronic Assessment and Plan: - Continue Lipitor (4) DVT prophylaxis Current Visit: Yes Status: Acute Assessment and Plan: - SubQ heparin (5) Acute and chronic respiratory failure (ijdqi-cw-mkwfvni) Current Visit: No Status: Acute Assessment and Plan: Presented with shortness of breath; likely secondary to COPD exacerbation - Arterial blood gas demonstrated respiratory acidosis - Multiple admissions for COPD exacerbation Plan: - Solumedrol 40 mg IV Q6 - Levaquin 500 mg by mouth daily, day 2 - Lasix 20 mg by mouth daily - Scheduled DuoNebs - BiPAP as needed - Time Spent with Patient Total time spent is greater than 50% in coordination of care (as documented) at patient's floor/unit and/or counseling patient: Internal Medicine: Result - Labs CBC & Chem 7: 03/21/18 02:02 03/21/18 02:02 - ABG Interpretation ABG results: ABG ABG pH 7.32 pH Units (7.32-7.45) 03/21/18 08:23 ABG pCO2 62 mmHg (35-45) H 03/21/18 08:23 ABG pO2 86 mmHg (85-104) 03/21/18 08:23 ABG O2 Saturation 95 % (95-98) 03/21/18 08:23 Consult Discharge Plan - Plan Referrals: Ray Garcia MD [Primary Care Provider] - <Unique Damico - Last Filed: 03/21/18 18:18> Hospitalist Progress Note - Encounter Date of Encounter: 03/21/18 - Exam Vitals: Temp Pulse Resp BP Pulse Ox 98.5 F 99 20 139/75 96 03/21/18 15:27 03/21/18 15:27 03/21/18 16:05 03/21/18 15:27 03/21/18 16:05 - Assessment and Plan (1) Acute and chronic respiratory failure (sjuxb-mi-jxrqhoq) Current Visit: No Status: Acute (2) Diabetes Current Visit: Yes Status: Chronic (3) COPD (chronic obstructive pulmonary disease) Current Visit: No Status: Chronic (4) Hyperlipidemia Current Visit: Yes Status: Chronic (5) DVT prophylaxis Current Visit: Yes Status: Acute - Summary of Assessment and Plan Summary of Assessment and Plan: I examined this patient and my medical decision-making was reviewed with the Resident Physician. I agree with the documented findings, disposition and treatment plan as described except to the extent set forth below. - Time Spent with Patient Total time spent is greater than 50% in coordination of care (as documented) at patient's floor/unit and/or counseling patient: Internal Medicine: Result - Labs CBC & Chem 7: 03/21/18 02:02 03/21/18 02:02 - ABG Interpretation ABG results: ABG ABG pH 7.32 pH Units (7.32-7.45) 03/21/18 08:23 ABG pCO2 62 mmHg (35-45) H 03/21/18 08:23 ABG pO2 86 mmHg (85-104) 03/21/18 08:23 ABG O2 Saturation 95 % (95-98) 03/21/18 08:23 <Maximo Batista - Last Filed: 03/21/18 12:10> (1) COPD (chronic obstructive pulmonary disease) Qualifiers: COPD type: unspecified COPD Qualified Code(s): J44.9 - Chronic obstructive pulmonary disease, unspecified (2) Diabetes Qualifiers: Diabetes mellitus type: type 2 Diabetes mellitus buttermaker helper insulin use: without buttermaker helper use Diabetes mellitus complication status: without complication Qualified Code(s): E11.9 - Type 2 diabetes mellitus without complications (3) Hyperlipidemia Qualifiers: Hyperlipidemia type: mixed hyperlipidemia Qualified Code(s): E78.2 - Mixed hyperlipidemia (5) Acute and chronic respiratory failure (hjlfz-yv-klyzpwo) Qualifiers: Respiratory failure complication: hypoxia and hypercapnia Qualified Code(s): J96.21 - Acute and chronic respiratory failure with hypoxia; J96.22 - Acute and chronic respiratory failure with hypercapnia <Unique Damico - Last Filed: 03/21/18 18:18> (1) Acute and chronic respiratory failure ([id number]-fn-[id number]) Qualifiers: Respiratory failure complication: hypoxia and hypercapnia Qualified Code(s): J96.21 - Acute and chronic respiratory failure with hypoxia; J96.22 - Acute and chronic respiratory failure with hypercapnia (2) Diabetes Qualifiers: Diabetes mellitus type: type 2 Diabetes mellitus fci insulin use: without buttermaker helper use Diabetes mellitus complication status: without complication Qualified Code(s): E11.9 - Type 2 diabetes mellitus without complications (3) COPD (chronic obstructive pulmonary disease) Qualifiers: COPD type: unspecified COPD Qualified Code(s): J44.9 - Chronic obstructive pulmonary disease, unspecified (4) Hyperlipidemia Qualifiers: Hyperlipidemia type: mixed hyperlipidemia Qualified Code(s): E78.2 - Mixed hyperlipidemia
[2018-03-21] MEDS: Loratadine 10 MG TABLET PO SCH (10:10)
[2018-03-21] MEDS: (Umeclidinium Bromide [Incruse Ellipta] 1 PUFF) IH SCH (10:10)
[2018-03-21] MEDS: Aspirin Enteric Coated 81 MG Tablet PO SCH (10:12)
[2018-03-21] MEDS: Cyanocobalamin (B-12) 1,000 MCG TABLET PO SCH (10:12)
[2018-03-21] MEDS: Fluticasone Propionate Nasal 50 MCG/SPRAY BOTTLE NS SCH (10:13)
[2018-03-21] MEDS: Furosemide 20 MG TABLET PO SCH (10:13)
[2018-03-21] MEDS: (Ezetimibe [Zetia] 10 MG) PO SCH (10:15)
[2018-03-21] MEDS: (Cyclosporine [Restasis] 1 EACH) OP SCH ×2 (10:15→23:08)
[2018-03-21] MEDS ORDERED: Ibuprofen 600 MG TABLET PO PRN (12:16)
[2018-03-21] MEDS ORDERED: D5% in Water 1,000 ML IVC PRN (13:07)
[2018-03-21] MEDS ORDERED: *HR* Dextrose 50 % in Water (Syg) 50 ML SYRINGE IVP PRN (13:07)
[2018-03-21] MEDS ORDERED: Insulin LISPRO 300 UNITS/3 ML VIAL SQ SCH (17:00)
[2018-03-21] MEDS: MethylPREDNISolone 40 MG/ML VIAL IVP SCH (17:04)
[2018-03-21] MEDS: Latanoprost 2.5 ML BOTTLE BOTH EYES SCH (18:35)
[2018-03-22] MEDS: MethylPREDNISolone 40 MG/ML VIAL IVP SCH ×3 (00:10→17:29)
[2018-03-22] MEDS: Ipratropium/Albuterol Neb 3 ML IH SCH ×6 (04:10→23:23)
[2018-03-22 04:42] LABS: Basophils % 0.1 %; Hematocrit 37.8 % (35.3-44.9); Immature Granulocytes % 0.5 % (0-4); Lymphocytes # 0.7 K/mcL (0.6-4.6); Lymphocytes % 6.3 %; Mean Corpuscular HGB Conc 31.7 g/dL (31.6-35.5); Mean Corpuscular Hemoglobin 27.3 pg (28.0-33.3); Mean Corpuscular Volume 86.1 fL (83.0-100.0); Mean Platelet Volume 10.1 fL (9.4-12.4); Monocytes # 0.3 K/mcL (0.0-1.3); Monocytes % 2.8 %; Platelet Count 258 K/mcL (140-400); Red Blood Count 4.39 M/mcL (3.82-4.97); Red Cell Distribution Width 15.3 % (11.5-14.5); Segmented Neutrophils % 90.3 %
[2018-03-22 05:01] LABS: BUN/Creatinine Ratio 38 (6-26); Blood Urea Nitrogen 23 mg/dL (8-23); Calcium 9.7 mg/dL (8.6-10.3); Carbon Dioxide 27 mEq/L (23-29); Chloride 105 mEq/L (98-107); Glucose 258 mg/dL (70-105); Osmolality,Calculated 303 (280-300); Potassium 4.6 mEq/L (3.5-5.1); Sodium 140 mEq/L (136-145); eGFR For Non-African Americans > 60 (> 60)
[2018-03-22] MEDS: *HR* Heparin 5,000 UNIT/ML VIAL SQ SCH ×3 (06:36→21:15)
[2018-03-22] MEDS: Insulin LISPRO 300 UNITS/3 ML VIAL SQ SCH ×4 (08:02→21:20)
[2018-03-22] MEDS: Fluticasone Propionate Nasal 50 MCG/SPRAY BOTTLE NS SCH (08:03)
[2018-03-22] MEDS: levoFLOXacin 500 MG TABLET PO SCH (08:03)
[2018-03-22] MEDS: Furosemide 20 MG TABLET PO SCH (08:03)
[2018-03-22] MEDS: Loratadine 10 MG TABLET PO SCH (08:03)
[2018-03-22] MEDS: Cyanocobalamin (B-12) 1,000 MCG TABLET PO SCH (08:03)
[2018-03-22] MEDS: Aspirin Enteric Coated 81 MG Tablet PO SCH (08:03)
[2018-03-22] MEDS: (Cyclosporine [Restasis] 1 EACH) OP SCH (08:04)
[2018-03-22] MEDS: (Ezetimibe [Zetia] 10 MG) PO SCH (08:04)
--- NOTE | 2018-03-22 08:08 | Internal Med Progress Note ---
<Maximo Batista - Last Filed: 03/22/18 11:51> Hospitalist Progress Note - Encounter Date of Encounter: 03/22/18 Time of Encounter: 08:08 - Subjective Interval History: Patient was seen and examined at bedside; reports that she is not feeling much better since admission. Still experiencing shortness of breath. Currently on 5 L of oxygen via oxygen mask. She denies fever, chills, productive cough. Shortness of breath exacerbated with exertion. Denies having any chest pain or palpitations. No further complaints at this time. - Exam Vitals: Temp Pulse Resp BP Pulse Ox 98.3 F 102 18 114/60 92 03/22/18 07:10 03/22/18 07:10 03/22/18 07:48 03/22/18 07:10 03/22/18 07:48 Exam: General: No acute distress HEENT: Moist mucous membranes. No conjunctivae pallor. Neck: No lymphadenopathy. No JVD. Chest: Diminished thoracic expansion, bilateral rales, expiratory wheezes, prolonged expiratory phase Heart: Normal S1 & S2; rhythmic. Abdomen: Non-distended, soft and non-tender to palpation. Extremities: No clubbing, cyanosis or edema. Neurological: Awake, alert and oriented to person, place. Psych: Affect appropriate. - Assessment and Plan (1) COPD (chronic obstructive pulmonary disease) Current Visit: No Status: Chronic Assessment and Plan: - Known history of COPD; likely cause of patients acute respiratory failure - Plan as above (2) Diabetes Current Visit: Yes Status: Chronic Assessment and Plan: - Sliding scale insulin (3) Hyperlipidemia Current Visit: Yes Status: Chronic Assessment and Plan: - Continue Lipitor (4) DVT prophylaxis Current Visit: Yes Status: Acute Assessment and Plan: - SubQ heparin (5) Acute and chronic respiratory failure (deoja-rt-smgwnvc) Current Visit: No Status: Acute Assessment and Plan: Presented with shortness of breath; likely secondary to COPD exacerbation - Arterial blood gas demonstrated respiratory acidosis - Multiple admissions for COPD exacerbation Plan: - We will increase Solu-Medrol to 60 mg every 8. - Levaquin 500 mg by mouth daily - Lasix 20 mg by mouth daily - Scheduled DuoNebs - BiPAP as needed - Time Spent with Patient Total time spent is greater than 50% in coordination of care (as documented) at patient's floor/unit and/or counseling patient: Internal Medicine: Result - Labs CBC & Chem 7: 03/22/18 03:51 03/22/18 03:51 Labs: Short CBC 03/22/18 Range/Units 03:51 WBC 11.0 (4.3-11.1) K/mcL Hgb 12.0 D (11.5-15.4) g/dL Hct 37.8 (35.3-44.9) % Plt Count 258 (140-400) K/mcL Neutrophils # 10.0 H (1.6-8.9) K/mcL BMP 03/22/18 03:51 Sodium 140 Potassium 4.6 Chloride 105 Carbon Dioxide 27 BUN 23 Creatinine 0.60 Glucose 258 H Calcium 9.7 - ABG Interpretation ABG results: ABG ABG pH 7.32 pH Units (7.32-7.45) 03/21/18 08:23 ABG pCO2 62 mmHg (35-45) H 03/21/18 08:23 ABG pO2 86 mmHg (85-104) 03/21/18 08:23 ABG O2 Saturation 95 % (95-98) 03/21/18 08:23 Consult Discharge Plan - Plan Referrals: Ray Garcia MD [Primary Care Provider] - <Unique Damico - Last Filed: 03/22/18 16:15> Hospitalist Progress Note - Encounter Date of Encounter: 03/22/18 - Exam Vitals: Temp Pulse Resp BP Pulse Ox 98.1 F 105 18 138/80 93 03/22/18 15:38 03/22/18 15:38 03/22/18 15:38 03/22/18 15:38 03/22/18 15:38 - Assessment and Plan (1) Diabetes Current Visit: Yes Status: Chronic (2) COPD (chronic obstructive pulmonary disease) Current Visit: No Status: Chronic (3) Hyperlipidemia Current Visit: Yes Status: Chronic (4) DVT prophylaxis Current Visit: Yes Status: Acute (5) Acute and chronic respiratory failure (zdrdo-ax-ahguafo) Current Visit: No Status: Acute - Summary of Assessment and Plan Summary of Assessment and Plan: I examined this patient and my medical decision-making was reviewed with the Resident Physician. I agree with the documented findings, disposition and treatment plan as described except to the extent set forth below. Still SOB with slight improvement, oxygen saturation adequate, requiring 5 L and usually on 2.5L at home. Lung sounds relatively unchanged since yesterday. Will increase Solu Medrol - Time Spent with Patient Total time spent is greater than 50% in coordination of care (as documented) at patient's floor/unit and/or counseling patient: Internal Medicine: Result - Labs CBC & Chem 7: 03/22/18 03:51 03/22/18 03:51 Labs: Short CBC 03/22/18 Range/Units 03:51 WBC 11.0 (4.3-11.1) K/mcL Hgb 12.0 D (11.5-15.4) g/dL Hct 37.8 (35.3-44.9) % Plt Count 258 (140-400) K/mcL Neutrophils # 10.0 H (1.6-8.9) K/mcL BMP 03/22/18 03:51 Sodium 140 Potassium 4.6 Chloride 105 Carbon Dioxide 27 BUN 23 Creatinine 0.60 Glucose 258 H Calcium 9.7 - ABG Interpretation ABG results: ABG ABG pH 7.32 pH Units (7.32-7.45) 03/21/18 08:23 ABG pCO2 62 mmHg (35-45) H 03/21/18 08:23 ABG pO2 86 mmHg (85-104) 03/21/18 08:23 ABG O2 Saturation 95 % (95-98) 03/21/18 08:23 <Maximo Batista - Last Filed: 03/22/18 11:51> (1) COPD (chronic obstructive pulmonary disease) Qualifiers: COPD type: unspecified COPD Qualified Code(s): J44.9 - Chronic obstructive pulmonary disease, unspecified (2) Diabetes Qualifiers: Diabetes mellitus type: type 2 Diabetes mellitus retirement insulin use: without meterman use Diabetes mellitus complication status: without complication Qualified Code(s): E11.9 - Type 2 diabetes mellitus without complications (3) Hyperlipidemia Qualifiers: Hyperlipidemia type: mixed hyperlipidemia Qualified Code(s): E78.2 - Mixed hyperlipidemia (5) Acute and chronic respiratory failure (ibdyn-qt-wosczgz) Qualifiers: Respiratory failure complication: hypoxia and hypercapnia Qualified Code(s): J96.21 - Acute and chronic respiratory failure with hypoxia; J96.22 - Acute and chronic respiratory failure with hypercapnia <Unique Damico - Last Filed: 03/22/18 16:15> (1) Diabetes Qualifiers: Diabetes mellitus type: type 2 Diabetes mellitus meterman insulin use: without meterman use Diabetes mellitus complication status: without complication Qualified Code(s): E11.9 - Type 2 diabetes mellitus without complications (2) COPD (chronic obstructive pulmonary disease) Qualifiers: COPD type: unspecified COPD Qualified Code(s): J44.9 - Chronic obstructive pulmonary disease, unspecified (3) Hyperlipidemia Qualifiers: Hyperlipidemia type: mixed hyperlipidemia Qualified Code(s): E78.2 - Mixed hyperlipidemia (5) Acute and chronic respiratory failure (hjtox-jz-mnytasq) Qualifiers: Respiratory failure complication: hypoxia and hypercapnia Qualified Code(s): J96.21 - Acute and chronic respiratory failure with hypoxia; J96.22 - Acute and chronic respiratory failure with hypercapnia
[2018-03-22] MEDS ORDERED: predniSONE 20 MG TABLET PO SCH (09:00)
[2018-03-22] MEDS: (Umeclidinium Bromide [Incruse Ellipta] 1 PUFF) IH SCH (09:18)
[2018-03-22] MEDS ORDERED: Ipratropium Neb 0.5 MG NEBULIZER IH PRN (11:54)
[2018-03-22] MEDS: (Cyclosporine [Restasis] 1 EACH) BOTH EYES SCH ×2 (15:24→23:33)
[2018-03-22] MEDS: Pantoprazole 40 MG VIAL IVP SCH (17:29)
[2018-03-22] MEDS: Latanoprost 2.5 ML BOTTLE BOTH EYES SCH (21:19)
[2018-03-23] MEDS: MethylPREDNISolone 40 MG/ML VIAL IVP SCH ×4 (00:23→23:47)
[2018-03-23] MEDS: Ipratropium/Albuterol Neb 3 ML IH SCH ×5 (03:54→19:49)
[2018-03-23 03:58] LABS: Basophils % 0.1 %; Hematocrit 37.2 % (35.3-44.9); Hemoglobin 11.9 g/dL (11.5-15.4); Immature Granulocytes % 0.7 % (0-4); Lymphocytes # 0.6 K/mcL (0.6-4.6); Mean Corpuscular Hemoglobin 27.7 pg (28.0-33.3); Mean Corpuscular Volume 86.5 fL (83.0-100.0); Mean Platelet Volume 9.8 fL (9.4-12.4); Monocytes # 0.3 K/mcL (0.0-1.3); Monocytes % 1.7 %; Platelet Count 243 K/mcL (140-400); Red Cell Distribution Width 15.4 % (11.5-14.5); Segmented Neutrophils % 93.5 %
[2018-03-23 04:14] LABS: BUN/Creatinine Ratio 37 (6-26); Blood Urea Nitrogen 23 mg/dL (8-23); Calcium 9.2 mg/dL (8.6-10.3); Carbon Dioxide 27 mEq/L (23-29); Chloride 103 mEq/L (98-107); Glucose 277 mg/dL (70-105); Osmolality,Calculated 302 (280-300); Potassium 4.1 mEq/L (3.5-5.1); Sodium 139 mEq/L (136-145); eGFR For Non-African Americans > 60 (> 60)
[2018-03-23] MEDS: *HR* Heparin 5,000 UNIT/ML VIAL SQ SCH ×3 (05:48→21:37)
[2018-03-23] MEDS: Pantoprazole 40 MG VIAL IVP SCH ×2 (05:48→17:32)
[2018-03-23] MEDS: Insulin LISPRO 300 UNITS/3 ML VIAL SQ SCH ×5 (08:26→21:30)
--- NOTE | 2018-03-23 09:20 | Electrocardiograph Report ---
[place] [id number] Test Date: 2018-03-21 Pat Name: Geri Leon Department: 103 Room: 2NE29 Gender: F [employer] Associate: MICAH : 1955 Requested By: Robbin Szymanski Order Number: [id number] Reading MD: Neno Fisher Measurements Intervals [place] Rate: 113 P: 84 VT: 141 QRS: 64 QRSD: 89 T: 68 QT: 323 QTc: 390 Interpretive Statements SINUS TACHYCARDIA aVL NOT SUITABLE FOR ANALYSIS Electronically Signed On 03-23-2018 9:19:02 EDT by Neno Fisher
[2018-03-23] MEDS: Fluticasone Propionate Nasal 50 MCG/SPRAY BOTTLE NS SCH (09:32)
[2018-03-23] MEDS: levoFLOXacin 500 MG TABLET PO SCH (09:36)
[2018-03-23] MEDS: Aspirin Enteric Coated 81 MG Tablet PO SCH (09:36)
[2018-03-23] MEDS: Furosemide 20 MG TABLET PO SCH (09:36)
[2018-03-23] MEDS: Cyanocobalamin (B-12) 1,000 MCG TABLET PO SCH (09:36)
[2018-03-23] MEDS: Loratadine 10 MG TABLET PO SCH (09:37)
[2018-03-23] MEDS: (Cyclosporine [Restasis] 1 EACH) BOTH EYES SCH ×2 (09:37→17:37)
[2018-03-23] MEDS: (Ezetimibe [Zetia] 10 MG) PO SCH (10:09)
--- NOTE | 2018-03-23 10:26 | Event Note ---
Date of Encounter: 03/23/18 Time of Encounter: 10:00 I examined this patient and my medical decision-making was reviewed with the Resident Physician. I agree with the documented findings, disposition and treatment plan as described with any changes as documented below. Patient continues to have significant shortness of breath. Per reports increased cough especially with deep breaths. No fever reported overnight. On 4 L nasal cannula at this time. General appearance: Present: cooperative, A&O X 3, answers questions appropriately - ENT: Mucous membranes moist - Neck Neck exam general surgery: Present: supple, trachea midline. Absent: lymphadenopathy - Respiratory Respiratory exam: Present: Bilateral wheezing, prolonged expiratory phase. Decreased breath sounds at both bases. Absent: accessory muscle use, rales, rhonchi - Cardiovascular Cardiovascular exam: Present: RRR, +S1, +S2. Absent: diastolic murmur, gallop, rubs, systolic murmur - GI/Abdominal GI/Abdominal exam: Present: normal bowel sounds, soft, no peritoneal signs. Absent: distended, tenderness - Extremities Exam Extremities exam: Present: warm, radial pulses palpable and symmetrical. Absent : calf tenderness, cyanotic, pedal edema - Neurological Exam Neurological exam: Present: alert, oriented X3, no focal deficits. Absent: facial droop, speech deficit Acute on chronic respiratory failure: Due to COPD exacerbation. Treat underlying COPD. Bronchodilators and BiPAP as needed. COPD exacerbation: Continue bronchodilators, IV steroids and O2 supplementation. On Levaquin Encouraged use of incentive spirometry. Moderate risk for complications. Diabetes mellitus type 2: Uncontrolled. Will increase insulin regimen. Blood sugars uncontrolled mainly due to steroid use.
[2018-03-23] MEDS: (Umeclidinium Bromide [Incruse Ellipta] 1 PUFF) IH SCH (10:47)
--- NOTE | 2018-03-23 10:49 | Internal Med Progress Note ---
<David Betts W - Last Filed: 03/23/18 16:26> Date of Encounter: 03/23/18 Time of Encounter: 10:47 - Assessment and plan (1) COPD exacerbation Current Visit: No Status: Acute Assessment and plan: Known history of COPD with several hospitalizations due to exacerbation -Arterial blood gas demonstrates respiratory acidosis Plan -Continue Solu-Medrol 60 mg every 8 -Switched to oral prednisone tomorrow -Levaquin 500 milligrams by mouth -Lasix 20 mg by mouth -Scheduled duo nebs -Albuterol when necessary -BiPAP as needed (2) Diabetes Current Visit: Yes Status: Chronic Assessment and plan: Uncontrolled plan -Increase sliding scale insulin control level -Levemir 10 units subcutaneous twice a day Qualifiers: Diabetes mellitus type: type 2 Diabetes mellitus mcc insulin use: without mcc use Diabetes mellitus complication status: without complication Qualified Code(s): E11.9 - Type 2 diabetes mellitus without complications (3) Hyperlipidemia Current Visit: Yes Status: Chronic Assessment and plan: Continue Lipitor Qualifiers: Hyperlipidemia type: mixed hyperlipidemia Qualified Code(s): E78.2 - Mixed hyperlipidemia (4) DVT prophylaxis Current Visit: Yes Status: Acute Assessment and plan: Subcutaneous heparin - Subjective Interval history: Patient states she has not improved much since yesterday. She continues have shortness of breath. Still having coughing with productive sputum. There is an increased coughing with deep breaths. With increased coughing patient experiences more shortness of breath. Denies fevers chills night sweats. Tolerated CPAP last night. Currently on 4 L nasal cannula. - Constitutional Vitals: Temp Pulse Resp BP Pulse Ox 97.8 F 85 17 107/63 95 03/23/18 06:49 03/23/18 06:49 03/23/18 06:49 03/23/18 06:49 03/23/18 06:49 General appearance: Present: mild distress, A&O X 3, no acute distress - Head Head exam: Present: atraumatic, normocephalic - Eye Eye exam: Present: EOMI, PERRL - Respiratory Respiratory exam: Present: CTAB, wheezes (Expiratory) - Cardiovascular Cardiovascular exam: Present: RRR, +S1, +S2. Absent: diastolic murmur, distant heart sounds, systolic murmur - Extremities Exam Extremities exam: Present: pedal edema (1+), warm - Neurological Exam Neurological exam: Present: alert, CN II-XII intact, oriented X3 Internal Medicine: Result - Labs CBC & Chem 7: 03/23/18 03:22 03/23/18 03:22 Labs: Short CBC 03/23/18 Range/Units 03:22 WBC 14.9 H (4.3-11.1) K/mcL Hgb 11.9 (11.5-15.4) g/dL Hct 37.2 (35.3-44.9) % Plt Count 243 (140-400) K/mcL Neutrophils # 14.0 H (1.6-8.9) K/mcL BMP 03/23/18 03:22 Sodium 139 Potassium 4.1 Chloride 103 Carbon Dioxide 27 BUN 23 Creatinine 0.62 Glucose 277 H Calcium 9.2 - ABG Interpretation ABG results: ABG ABG pH 7.32 pH Units (7.32-7.45) 03/21/18 08:23 ABG pCO2 62 mmHg (35-45) H 03/21/18 08:23 ABG pO2 86 mmHg (85-104) 03/21/18 08:23 ABG O2 Saturation 95 % (95-98) 03/21/18 08:23 Consult Discharge Plan - Plan Referrals: Ray Garcia MD [Primary Care Provider] - <Vahid Harrell - Last Filed: 03/23/18 16:41> Date of Encounter: 03/23/18 Time of Encounter: 10:00 - Constitutional Vitals: Temp Pulse Resp BP Pulse Ox 97.8 F 85 17 107/63 95 03/23/18 06:49 03/23/18 06:49 03/23/18 11:20 03/23/18 11:20 03/23/18 11:20 Internal Medicine: Result - Labs CBC & Chem 7: 03/23/18 03:22 03/23/18 03:22 Labs: Short CBC 03/23/18 Range/Units 03:22 WBC 14.9 H (4.3-11.1) K/mcL Hgb 11.9 (11.5-15.4) g/dL Hct 37.2 (35.3-44.9) % Plt Count 243 (140-400) K/mcL Neutrophils # 14.0 H (1.6-8.9) K/mcL BMP 03/23/18 03:22 Sodium 139 Potassium 4.1 Chloride 103 Carbon Dioxide 27 BUN 23 Creatinine 0.62 Glucose 277 H Calcium 9.2 - ABG Interpretation ABG results: ABG ABG pH 7.32 pH Units (7.32-7.45) 03/21/18 08:23 ABG pCO2 62 mmHg (35-45) H 03/21/18 08:23 ABG pO2 86 mmHg (85-104) 03/21/18 08:23 ABG O2 Saturation 95 % (95-98) 03/21/18 08:23 - Attending Attestation I examined this patient and my medical decision-making was reviewed with the Resident Physician. I agree with the documented findings, disposition and treatment plan as described with any changes as documented below. Patient continues to have significant shortness of breath. Per reports increased cough especially with deep breaths. No fever reported overnight. On 4 L nasal cannula at this time. General appearance: Present: cooperative, A&O X 3, answers questions appropriately - ENT: Mucous membranes moist - Neck Neck exam general surgery: Present: supple, trachea midline. Absent: lymphadenopathy - Respiratory Respiratory exam: Present: Bilateral wheezing, prolonged expiratory phase. Decreased breath sounds at both bases. Absent: accessory muscle use, rales, rhonchi - Cardiovascular Cardiovascular exam: Present: RRR, +S1, +S2. Absent: diastolic murmur, gallop, rubs, systolic murmur - GI/Abdominal GI/Abdominal exam: Present: normal bowel sounds, soft, no peritoneal signs. Absent: distended, tenderness - Extremities Exam Extremities exam: Present: warm, radial pulses palpable and symmetrical. Absent : calf tenderness, cyanotic, pedal edema - Neurological Exam Neurological exam: Present: alert, oriented X3, no focal deficits. Absent: facial droop, speech deficit Acute on chronic respiratory failure: Due to COPD exacerbation. Treat underlying COPD. Bronchodilators and BiPAP as needed. COPD exacerbation: Continue bronchodilators, IV steroids and O2 supplementation. On Levaquin Encouraged use of incentive spirometry. Moderate risk for complications. Diabetes mellitus type 2: Uncontrolled. Will increase insulin regimen. Blood sugars uncontrolled mainly due to steroid use.
[2018-03-23] MEDS ORDERED: Albuterol 2.5 MG/3 ML NEBULIZER IH PRN ×2 (13:27→15:01)
[2018-03-23] MEDS: Insulin DETEMIR 100 UNIT/ML X5UNITS SQ SCH (21:36)
[2018-03-23] MEDS: Latanoprost 2.5 ML BOTTLE BOTH EYES SCH (21:37)
[2018-03-24] MEDS: Ipratropium/Albuterol Neb 3 ML IH SCH ×6 (00:32→20:03)
[2018-03-24] MEDS: Pantoprazole 40 MG VIAL IVP SCH (05:47)
[2018-03-24] MEDS: *HR* Heparin 5,000 UNIT/ML VIAL SQ SCH ×3 (05:47→21:31)
[2018-03-24] MEDS: Aspirin Enteric Coated 81 MG Tablet PO SCH (08:21)
[2018-03-24] MEDS: Cyanocobalamin (B-12) 1,000 MCG TABLET PO SCH (08:21)
[2018-03-24] MEDS: levoFLOXacin 500 MG TABLET PO SCH (08:21)
[2018-03-24] MEDS: Loratadine 10 MG TABLET PO SCH (08:21)
[2018-03-24] MEDS: Furosemide 20 MG TABLET PO SCH (08:21)
[2018-03-24] MEDS: MethylPREDNISolone 40 MG/ML VIAL IVP SCH ×3 (08:22→23:32)
[2018-03-24] MEDS: Insulin LISPRO 300 UNITS/3 ML VIAL SQ SCH ×4 (08:22→21:44)
[2018-03-24] MEDS: Insulin DETEMIR 100 UNIT/ML X5UNITS SQ SCH ×2 (08:22→21:44)
[2018-03-24] MEDS: (Cyclosporine [Restasis] 1 EACH) BOTH EYES SCH ×3 (08:23→21:53)
[2018-03-24] MEDS: Fluticasone Propionate Nasal 50 MCG/SPRAY BOTTLE NS SCH (08:23)
--- NOTE | 2018-03-24 09:38 | Internal Med Progress Note ---
<David Betts W - Last Filed: 03/24/18 15:57> Date of Encounter: 03/24/18 Time of Encounter: 09:36 - Assessment and plan (1) SIRS (systemic inflammatory response syndrome) Current Visit: Yes Status: Acute Assessment and plan: Patient was tachycardic and have elevated white blood Cell count. unknown source of infection at this time Blood pressure was 100/49 Lactic acid was 3.3 now 2.2 Vitals responded to fluid bolus CXR found no acute process Plan -Blood culture x2 -Currently on levaquin day 3 D/C now, add Vancomycin and Zosyn -Vitals Q3 (2) COPD exacerbation Current Visit: No Status: Acute Assessment and plan: Known history of COPD with several hospitalizations due to exacerbation -Arterial blood gas demonstrates respiratory acidosis Plan -Continue Solu-Medrol 60 mg every 8 -Plan for taper tomorrow -Lasix 20 mg by mouth -Scheduled duo nebs -Albuterol when necessary -BiPAP as needed (3) Diabetes Current Visit: Yes Status: Chronic Assessment and plan: Uncontrolled plan -Increase sliding scale insulin control level -Levemir 10 units subcutaneous twice a day Qualifiers: Diabetes mellitus type: type 2 Diabetes mellitus boiler coverer insulin use: without boiler coverer use Diabetes mellitus complication status: without complication Qualified Code(s): E11.9 - Type 2 diabetes mellitus without complications (4) Hyperlipidemia Current Visit: Yes Status: Chronic Assessment and plan: Continue Lipitor Qualifiers: Hyperlipidemia type: mixed hyperlipidemia Qualified Code(s): E78.2 - Mixed hyperlipidemia (5) DVT prophylaxis Current Visit: Yes Status: Acute Assessment and plan: Subcutaneous heparin - Subjective Interval history: Patient states there has been no significant improvement since yesterday. She continues to cough with productive sputum. States she coughs every time she moves. Increased coughing with deep breaths. When she is not coughing she states her shortness of breath may have slightly improved. Denies fever chills or night sweats. On 2.5 L nasal cannula, down from 4 L yesterday, which she is tolerating. - Constitutional Vitals: Temp Pulse Resp BP Pulse Ox 97.6 F 91 16 100/49 89 03/24/18 06:49 03/24/18 06:49 03/24/18 07:39 03/24/18 06:49 03/24/18 08:23 General appearance: Present: mild distress, A&O X 3, no acute distress - Head Head exam: Present: atraumatic, normocephalic - Eye Eye exam: Present: EOMI, PERRL - Respiratory Respiratory exam: Present: CTAB, wheezes. Absent: respiratory distress Additional comments: Significant coughing throughout exam - Cardiovascular Cardiovascular exam: Present: +S1, +S2, tachycardia. Absent: +S3, +S4 Internal Medicine: Result - Labs CBC & Chem 7: 03/23/18 03:22 03/23/18 03:22 - ABG Interpretation ABG results: ABG ABG pH 7.32 pH Units (7.32-7.45) 03/21/18 08:23 ABG pCO2 62 mmHg (35-45) H 03/21/18 08:23 ABG pO2 86 mmHg (85-104) 03/21/18 08:23 ABG O2 Saturation 95 % (95-98) 03/21/18 08:23 Consult Discharge Plan - Plan Referrals: Ray Garcia MD [Primary Care Provider] - <Ricky Mcguire - Last Filed: 03/24/18 17:11> Date of Encounter: 03/24/18 - Assessment and plan (1) Acute and chronic respiratory failure ([id number]) Current Visit: No Status: Acute Assessment and plan: Related to COPD. Hypoxia improving with treatment. Qualifiers: Respiratory failure complication: hypoxia and hypercapnia Qualified Code(s) : J96.21 - Acute and chronic respiratory failure with hypoxia; J96.22 - Acute and chronic respiratory failure with hypercapnia (2) SIRS (systemic inflammatory response syndrome) Current Visit: Yes Status: Acute (3) COPD exacerbation Current Visit: No Status: Acute (4) Essential hypertension Current Visit: No Status: Chronic (5) Diabetes Current Visit: Yes Status: Chronic Qualifiers: Diabetes mellitus type: type 2 Diabetes mellitus correction insulin use: without correction use Diabetes mellitus complication status: with hyperglycemia Qualified Code(s): E11.65 - Type 2 diabetes mellitus with hyperglycemia (6) Hyperlipidemia Current Visit: Yes Status: Chronic Qualifiers: Hyperlipidemia type: mixed hyperlipidemia Qualified Code(s): E78.2 - Mixed hyperlipidemia (7) Diastolic CHF Current Visit: Yes Status: Chronic Qualifiers: Heart failure chronicity: chronic Qualified Code(s): I50.32 - Chronic diastolic (congestive) heart failure - Constitutional Vitals: Temp Pulse Resp BP Pulse Ox 98.1 F 102 16 110/69 95 03/24/18 11:10 03/24/18 16:16 03/24/18 16:16 03/24/18 16:16 03/24/18 16:16 Internal Medicine: Result - Labs CBC & Chem 7: 03/23/18 03:22 03/23/18 03:22 - ABG Interpretation ABG results: ABG ABG pH 7.32 pH Units (7.32-7.45) 03/21/18 08:23 ABG pCO2 62 mmHg (35-45) H 03/21/18 08:23 ABG pO2 86 mmHg (85-104) 03/21/18 08:23 ABG O2 Saturation 95 % (95-98) 03/21/18 08:23 - Impressions Impressions Chest X-Ray 03/24/18 09:13 IMPRESSION: No acute process. D/ / Hari Rossi MD / Hari Rossi MD Interpreting Provider: Hari Rossi MD - Attending Attestation I examined this patient and my medical decision-making was reviewed with the Resident Physician on 03/24/18. I agree with the documented findings, disposition and treatment plan as described except to the extent set forth below. Ms Leon is currently admitted for acute exac COPD. She remains moderate to high risk due to potential for worsening clinical status. Ms Leon is still very dyspneic. She had SIRS today and fluids given. Lactate elevated and has improved. No fever. Still with cough and congestion. Not able to get up secretions. No GI issues. Exam alert Mild distress at rest. Mucus membranes dry Heart reg- about 96bpm Lungs with end exp wheeze on L Abd soft No edema I/P 1. SIRS - cx ordered. Abx broaden to Zosyn and Vanc 2. COPD exac - on steroids, abx, mucinex Further diagnoses and plan as above.
[2018-03-24] MEDS ORDERED: 0.9 % Sodium Chloride 500 ML IVC ONE (10:43)
[2018-03-24] MEDS: Piperacillin/Tazobactam 3.375 GM in 0.9 % Sodium Chloride Mini Bag 100 ML IVPB SCH ×2 (11:49→21:29)
[2018-03-24] MEDS ORDERED: Aminoglycoside Consult 1 EACH MC ONE (13:58)
[2018-03-24] MEDS: Latanoprost 2.5 ML BOTTLE BOTH EYES SCH (17:32)
[2018-03-24 18:25] LABS: Basophils % 0.1 %; Hematocrit 40.2 % (35.3-44.9); Hemoglobin 13.1 g/dL (11.5-15.4); Immature Granulocytes % 1.7 % (0-4); Lymphocytes # 0.6 K/mcL (0.6-4.6); Lymphocytes % 4.6 %; Mean Corpuscular HGB Conc 32.6 g/dL (31.6-35.5); Mean Corpuscular Hemoglobin 27.9 pg (28.0-33.3); Mean Corpuscular Volume 85.7 fL (83.0-100.0); Mean Platelet Volume 10.2 fL (9.4-12.4); Monocytes # 0.6 K/mcL (0.0-1.3); Monocytes % 4.4 %; Neutrophils # 12.2 K/mcL (1.6-8.9); Platelet Count 291 K/mcL (140-400); Red Blood Count 4.69 M/mcL (3.82-4.97); Red Cell Distribution Width 15.4 % (11.5-14.5); Segmented Neutrophils % 89.2 %
--- NOTE | 2018-03-24 20:08 | Sepsis Event Note ---
<Lenny Vázquez - Last Filed: 03/25/18 03:27> Sepsis Reassessment Note - Evaluation Sepsis Screen: Sepsis Risk Current Stage of Sepsis: severe sepsis Reason for ruling out sepsis: on steroids likely source of WBC elevation. Tachycardia likely related to COPD and albuterol. Possible Source of Sepsis: pulmonary - Focused Exam Date of Encounter: 03/24/18 Time of Encounter: 20:07 Vital Signs: Vital Signs Temp Pulse Resp BP Pulse Ox 03/24/18 20:03 18 91 03/24/18 16:16 102 16 110/69 95 03/24/18 15:46 16 96 03/24/18 11:39 16 93 03/24/18 11:10 98.1 F 90 17 135/72 93 03/24/18 08:23 89 Respiratory Exam: Present: wheezes. Absent: accessory muscle use Cardiovascular Exam: Present: RRR Capillary Refill: < 2 seconds Peripheral Pulse Strength: 2+ slightly diminished Peripheral Pulse Location: Radial Skin Exam: normal turgor <Ricky Mcguire - Last Filed: 03/25/18 18:50> Sepsis Reassessment Note - Focused Exam Vital Signs: Vital Signs Temp Pulse Resp BP Pulse Ox 03/25/18 16:47 98.4 F 97 18 138/78 89 03/25/18 15:42 20 91 03/25/18 11:29 97.7 F 108 22 152/85 93 03/25/18 11:10 20 91 03/25/18 07:40 16 92 - Reassessment Comments Comments: Agree with above assessment.
[2018-03-25] MEDS: Ipratropium/Albuterol Neb 3 ML IH SCH ×6 (00:08→20:22)
[2018-03-25] MEDS: Piperacillin/Tazobactam 3.375 GM in 0.9 % Sodium Chloride Mini Bag 100 ML IVPB SCH ×3 (04:41→20:34)
[2018-03-25] MEDS: *HR* Heparin 5,000 UNIT/ML VIAL SQ SCH ×3 (06:02→22:57)
[2018-03-25] MEDS: Furosemide 20 MG TABLET PO SCH (08:55)
[2018-03-25] MEDS: MethylPREDNISolone 40 MG/ML VIAL IVP SCH ×3 (08:55→22:57)
[2018-03-25] MEDS: Aspirin Enteric Coated 81 MG Tablet PO SCH (08:55)
[2018-03-25] MEDS: Loratadine 10 MG TABLET PO SCH (08:56)
[2018-03-25] MEDS: Cyanocobalamin (B-12) 1,000 MCG TABLET PO SCH (08:56)
[2018-03-25] MEDS: (Cyclosporine [Restasis] 1 EACH) BOTH EYES SCH ×2 (08:56→20:43)
[2018-03-25] MEDS: Fluticasone Propionate Nasal 50 MCG/SPRAY BOTTLE NS SCH (08:57)
[2018-03-25] MEDS: Insulin LISPRO 300 UNITS/3 ML VIAL SQ SCH ×4 (08:57→21:09)
[2018-03-25] MEDS: Insulin DETEMIR 100 UNIT/ML X5UNITS SQ SCH ×2 (08:59→20:35)
[2018-03-25 09:35] LABS: Basophils % 0.2 %; Eosinophils % 0.1 %; Hematocrit 41.1 % (35.3-44.9); Hemoglobin 13.3 g/dL (11.5-15.4); Immature Granulocytes % 2.5 % (0-4); Lymphocytes # 0.6 K/mcL (0.6-4.6); Lymphocytes % 5.5 %; Mean Corpuscular HGB Conc 32.4 g/dL (31.6-35.5); Mean Corpuscular Hemoglobin 27.5 pg (28.0-33.3); Mean Corpuscular Volume 85.1 fL (83.0-100.0); Mean Platelet Volume 10.2 fL (9.4-12.4); Monocytes # 0.4 K/mcL (0.0-1.3); Monocytes % 4.2 %; Neutrophils # 9.2 K/mcL (1.6-8.9); Platelet Count 225 K/mcL (140-400); Red Blood Count 4.83 M/mcL (3.82-4.97); Red Cell Distribution Width 15.3 % (11.5-14.5); Segmented Neutrophils % 87.5 %
[2018-03-25 09:48] LABS: BUN/Creatinine Ratio 36 (6-26); Blood Urea Nitrogen 25 mg/dL (8-23); Calcium 9.2 mg/dL (8.6-10.3); Carbon Dioxide 27 mEq/L (23-29); Chloride 104 mEq/L (98-107); Glucose 327 mg/dL (70-105); Osmolality,Calculated 311 (280-300); Potassium 3.6 mEq/L (3.5-5.1); Sodium 142 mEq/L (136-145); eGFR For Non-African Americans > 60 (> 60)
--- NOTE | 2018-03-25 10:11 | Internal Med Progress Note ---
<David Betts W - Last Filed: 03/25/18 11:38> Date of Encounter: 03/25/18 Time of Encounter: 10:09 - Assessment and plan (1) SIRS (systemic inflammatory response syndrome) Current Visit: Yes Status: Acute Assessment and plan: Likely resolved Patient was tachycardic with an elevated WBC count WBC is 10.5 today Patient still has times of sinus tachycardia especially with movement and coughing lactic acid last evening was 2.2 CXR found no acute process blood cultures pending Plan -Blood culture x2 -day 2 Vanc and Zosyn D/C Vanc -Vitals Q3 (2) COPD exacerbation Current Visit: Yes Status: Acute Assessment and plan: Known history of COPD with several hospitalizations due to exacerbation -Arterial blood gas demonstrates respiratory acidosis Plan - Begin taper start 40 mg Solu-medrol q6 - N-acetylcysteine inhaled added - Lasix 20 mg by mouth - Scheduled duo nebs - Albuterol when necessary - BiPAP as needed (3) Diabetes Current Visit: Yes Status: Chronic Assessment and plan: Uncontrolled plan -Continue sliding scale insulin control level -Increase Levemir to 15 units subcutaneous twice a day - Monitor BG with steroid taper Qualifiers: Diabetes mellitus type: type 2 Diabetes mellitus fpc insulin use: without commissions analyst use Diabetes mellitus complication status: with hyperglycemia Qualified Code(s): E11.65 - Type 2 diabetes mellitus with hyperglycemia (4) Hyperlipidemia Current Visit: Yes Status: Chronic Assessment and plan: Continue Lipitor Qualifiers: Hyperlipidemia type: mixed hyperlipidemia Qualified Code(s): E78.2 - Mixed hyperlipidemia (5) DVT prophylaxis Current Visit: Yes Status: Acute Assessment and plan: Subcutaneous heparin - Subjective Interval history: Patient states she feels better today compared to yesterday. Her cough is still present but states there is less sputum. She also states there is less shortness of breath but still significantly short of breath when she moves. Denies fevers night sweats. Does have chills sleeps with 3 blankets. She was sepsis concern yesterday today her white count has dropped to 10.5. She is tachycardic at times. Patient states there has been no significant improvement since yesterday. She continues to cough with productive sputum. States she coughs every time she moves. Increased coughing with deep breaths. When she is not coughing she states her shortness of breath may have slightly improved. Denies fever chills or night sweats. On 2.5 L nasal cannula, down from 4 L yesterday, which she is tolerating. - Constitutional Vitals: Temp Pulse Resp BP Pulse Ox 98.5 F 72 16 148/84 92 03/25/18 06:47 03/25/18 06:47 03/25/18 07:40 03/25/18 06:47 03/25/18 07:40 General appearance: Present: mild distress, A&O X 3, no acute distress - Head Head exam: Present: atraumatic, normal inspection, normocephalic - Eye Eye exam: Present: EOMI, PERRL - Respiratory Respiratory exam: Present: CTAB, wheezes - Cardiovascular Cardiovascular exam: Present: RRR, +S1, +S2. Absent: gallop, irregular rhythm, rubs, +S3, +S4, systolic murmur - Neurological Exam Neurological exam: Present: alert, CN II-XII intact, oriented X3 - Psychiatric Psychiatric exam: Present: normal affect, normal mood Internal Medicine: Result - Labs CBC & Chem 7: 03/25/18 08:51 03/25/18 08:51 Labs: Short CBC 03/24/18 03/25/18 Range/Units 18:04 08:51 WBC 13.7 H 10.5 (4.3-11.1) K/mcL Hgb 13.1 13.3 (11.5-15.4) g/dL Hct 40.2 41.1 (35.3-44.9) % Plt Count 291 225 (140-400) K/mcL Neutrophils # 12.2 H 9.2 H (1.6-8.9) K/mcL BMP 03/25/18 08:51 Sodium 142 Potassium 3.6 Chloride 104 Carbon Dioxide 27 BUN 25 H Creatinine 0.70 Glucose 327 H Calcium 9.2 - ABG Interpretation ABG results: ABG ABG pH 7.32 pH Units (7.32-7.45) 03/21/18 08:23 ABG pCO2 62 mmHg (35-45) H 03/21/18 08:23 ABG pO2 86 mmHg (85-104) 03/21/18 08:23 ABG O2 Saturation 95 % (95-98) 03/21/18 08:23 - Impressions Impressions Chest X-Ray 03/24/18 09:13 IMPRESSION: No acute process. D/ / Hari Rossi MD / Hari Rossi MD Interpreting Provider: Hari Rossi MD Consult Discharge Plan - Plan Referrals: Ray Garcia MD [Primary Care Provider] - <Ricky Mcguire Ernie - Last Filed: 03/25/18 18:50> Date of Encounter: 03/25/18 - Assessment and plan (1) Acute and chronic respiratory failure ([id number]) Current Visit: No Status: Chronic Qualifiers: Respiratory failure complication: hypoxia and hypercapnia Qualified Code(s) : J96.21 - Acute and chronic respiratory failure with hypoxia; J96.22 - Acute and chronic respiratory failure with hypercapnia (2) SIRS (systemic inflammatory response syndrome) Current Visit: Yes Status: Resolved (3) COPD exacerbation Current Visit: Yes Status: Acute (4) Essential hypertension Current Visit: No Status: Chronic (5) Diabetes Current Visit: Yes Status: Chronic Qualifiers: Diabetes mellitus type: type 2 Diabetes mellitus fpc insulin use: without fpc use Diabetes mellitus complication status: with hyperglycemia Qualified Code(s): E11.65 - Type 2 diabetes mellitus with hyperglycemia (6) Hyperlipidemia Current Visit: Yes Status: Chronic Qualifiers: Hyperlipidemia type: mixed hyperlipidemia Qualified Code(s): E78.2 - Mixed hyperlipidemia (7) Diastolic CHF Current Visit: Yes Status: Chronic Qualifiers: Heart failure chronicity: chronic Qualified Code(s): I50.32 - Chronic diastolic (congestive) heart failure - Constitutional Vitals: Temp Pulse Resp BP Pulse Ox 98.4 F 97 18 138/78 89 03/25/18 16:47 03/25/18 16:47 03/25/18 16:47 03/25/18 16:47 03/25/18 16:47 Internal Medicine: Result - Labs CBC & Chem 7: 03/25/18 08:51 03/25/18 08:51 Labs: Short CBC 03/25/18 Range/Units 08:51 WBC 10.5 (4.3-11.1) K/mcL Hgb 13.3 (11.5-15.4) g/dL Hct 41.1 (35.3-44.9) % Plt Count 225 (140-400) K/mcL Neutrophils # 9.2 H (1.6-8.9) K/mcL BMP 03/25/18 08:51 Sodium 142 Potassium 3.6 Chloride 104 Carbon Dioxide 27 BUN 25 H Creatinine 0.70 Glucose 327 H Calcium 9.2 - ABG Interpretation ABG results: ABG ABG pH 7.32 pH Units (7.32-7.45) 03/21/18 08:23 ABG pCO2 62 mmHg (35-45) H 03/21/18 08:23 ABG pO2 86 mmHg (85-104) 03/21/18 08:23 ABG O2 Saturation 95 % (95-98) 03/21/18 08:23 - Attending Attestation I examined this patient and my medical decision-making was reviewed with the Resident Physician on 03/25/18. I agree with the documented findings, disposition and treatment plan as described except to the extent set forth below. Ms Leon is currently admitted for acute exac COPD. She remains moderate to high risk due to potential for worsening clinical status. Ms Leon is doing somewhat better today. She is less dyspneic but still cannot get sputum mobilized. No fever or chills. No GI issues. Exam Alert Comfortable at this time Mucus membranes dry Heart not tachy now End exp wheeze present Abd soft No edema I/P 1. Exac COPD - add mucomyst 2. Chronic resp failure with hypoxia 3. D/C Vancomycin Further diagnoses and plan as above.
[2018-03-25] MEDS: Acetylcysteine 10% 2 ML INHSOL IH SCH ×3 (15:26→20:23)
[2018-03-25] MEDS: Latanoprost 2.5 ML BOTTLE BOTH EYES SCH (20:39)
[2018-03-26] MEDS: Acetylcysteine 10% 2 ML INHSOL IH SCH ×5 (00:07→23:45)
[2018-03-26] MEDS: Ipratropium/Albuterol Neb 3 ML IH SCH ×7 (00:07→23:44)
[2018-03-26 04:23] LABS: Basophils % 0.2 %; Hematocrit 40.5 % (35.3-44.9); Hemoglobin 13.2 g/dL (11.5-15.4); Immature Granulocytes % 1.9 % (0-4); Lymphocytes # 0.8 K/mcL (0.6-4.6); Lymphocytes % 6.8 %; Mean Corpuscular HGB Conc 32.6 g/dL (31.6-35.5); Mean Corpuscular Hemoglobin 27.4 pg (28.0-33.3); Mean Corpuscular Volume 84.2 fL (83.0-100.0); Mean Platelet Volume 9.6 fL (9.4-12.4); Monocytes # 0.5 K/mcL (0.0-1.3); Platelet Count 223 K/mcL (140-400); Red Blood Count 4.81 M/mcL (3.82-4.97); Red Cell Distribution Width 15.2 % (11.5-14.5); Segmented Neutrophils % 87.1 %
[2018-03-26 04:36] LABS: BUN/Creatinine Ratio 41 (6-26); Blood Urea Nitrogen 24 mg/dL (8-23); Calcium 8.8 mg/dL (8.6-10.3); Carbon Dioxide 32 mEq/L (23-29); Chloride 103 mEq/L (98-107); Glucose 204 mg/dL (70-105); Osmolality,Calculated 306 (280-300); Potassium 3.5 mEq/L (3.5-5.1); Sodium 143 mEq/L (136-145); eGFR For Non-African Americans > 60 (> 60)
[2018-03-26] MEDS: Piperacillin/Tazobactam 3.375 GM in 0.9 % Sodium Chloride Mini Bag 100 ML IVPB SCH ×3 (06:20→20:18)
[2018-03-26] MEDS: *HR* Heparin 5,000 UNIT/ML VIAL SQ SCH ×3 (06:21→22:33)
[2018-03-26] MEDS: Fluticasone Propionate Nasal 50 MCG/SPRAY BOTTLE NS SCH (08:27)
[2018-03-26] MEDS: MethylPREDNISolone 40 MG/ML VIAL IVP SCH (08:27)
[2018-03-26] MEDS: Aspirin Enteric Coated 81 MG Tablet PO SCH (08:28)
[2018-03-26] MEDS: Furosemide 20 MG TABLET PO SCH (08:28)
[2018-03-26] MEDS: Cyanocobalamin (B-12) 1,000 MCG TABLET PO SCH (08:28)
[2018-03-26] MEDS: Loratadine 10 MG TABLET PO SCH (08:28)
[2018-03-26] MEDS: (Cyclosporine [Restasis] 1 EACH) BOTH EYES SCH ×2 (08:29→20:21)
[2018-03-26] MEDS: Insulin LISPRO 300 UNITS/3 ML VIAL SQ SCH ×4 (08:30→20:19)
[2018-03-26] MEDS: Insulin DETEMIR 100 UNIT/ML X5UNITS SQ SCH ×2 (08:33→20:20)
--- NOTE | 2018-03-26 09:07 | Internal Med Progress Note ---
<David Betts - Last Filed: 03/26/18 13:10> Date of Encounter: 03/26/18 Time of Encounter: 09:04 - Assessment and plan (1) COPD exacerbation Current Visit: Yes Status: Acute Assessment and plan: Known history of COPD with several hospitalizations due to exacerbation -Arterial blood gas demonstrates respiratory acidosis -Mucomyst significantly improved her ability to cough up sputum -Improving Plan - Continue taper start 60 mg prednisone PO tomorrow - Lasix 20 mg by mouth - Scheduled duo nebs - Albuterol when necessary - BiPAP as needed (2) SIRS (systemic inflammatory response syndrome) Current Visit: Yes Status: Resolved Assessment and plan: Likely resolved Patient was tachycardic with an elevated WBC count on 03/24/18 WBC is 11.5 today CXR found no acute process blood cultures pending Plan -Blood culture x2 -day 2 Vanc -Vitals Q3 (3) Diabetes Current Visit: Yes Status: Chronic Assessment and plan: Uncontrolled plan -Continue sliding scale insulin control level -Continue Levamir 15 units subcutaneous twice a day - Monitor BG with steroid taper Qualifiers: Diabetes mellitus type: type 2 Diabetes mellitus fci insulin use: without fci use Diabetes mellitus complication status: with hyperglycemia Qualified Code(s): E11.65 - Type 2 diabetes mellitus with hyperglycemia (4) Hyperlipidemia Current Visit: Yes Status: Chronic Assessment and plan: Continue Lipitor Qualifiers: Hyperlipidemia type: mixed hyperlipidemia Qualified Code(s): E78.2 - Mixed hyperlipidemia (5) DVT prophylaxis Current Visit: Yes Status: Acute Assessment and plan: Subcutaneous heparin - Subjective Interval history: Patient states her significant improvement from yesterday. Her cough is decreased and she is able to cough up more sputum after the Mucomyst treatments. She feels increased energy decreased shortness of breath with moving although distal present. Denies fever, night sweats. Still has chills. On Zosyn day 3 for prior sepsis concern. White count was 11.5 today. - Constitutional Vitals: Temp Pulse Resp BP Pulse Ox 98.2 F 82 16 127/81 95 03/26/18 06:41 03/26/18 06:41 03/26/18 07:33 03/26/18 06:41 03/26/18 07:33 General appearance: Present: A&O X 3, pleasant, no acute distress - Head Head exam: Present: atraumatic, normal inspection, normocephalic - Eye Eye exam: Present: PERRL - Respiratory Respiratory exam: Present: CTAB, wheezes. Absent: chest wall tenderness, decreased breath sounds, rales, respiratory distress - Cardiovascular Cardiovascular exam: Present: RRR, +S1, +S2 - Neurological Exam Neurological exam: Present: alert, CN II-XII intact, oriented X3 - Psychiatric Psychiatric exam: Present: normal affect, normal mood Internal Medicine: Result - Labs CBC & Chem 7: 03/26/18 03:56 03/26/18 03:56 Labs: Short CBC 03/25/18 03/26/18 Range/Units 08:51 03:56 WBC 10.5 11.5 H (4.3-11.1) K/mcL Hgb 13.3 13.2 (11.5-15.4) g/dL Hct 41.1 40.5 (35.3-44.9) % Plt Count 225 223 (140-400) K/mcL Neutrophils # 9.2 H 10.0 H (1.6-8.9) K/mcL BMP 03/25/18 03/26/18 08:51 03:56 Sodium 142 143 Potassium 3.6 3.5 Chloride 104 103 Carbon Dioxide 27 32 H BUN 25 H 24 H Creatinine 0.70 0.59 L Glucose 327 H 204 H Calcium 9.2 8.8 - ABG Interpretation ABG results: ABG ABG pH 7.32 pH Units (7.32-7.45) 03/21/18 08:23 ABG pCO2 62 mmHg (35-45) H 03/21/18 08:23 ABG pO2 86 mmHg (85-104) 03/21/18 08:23 ABG O2 Saturation 95 % (95-98) 03/21/18 08:23 Consult Discharge Plan - Plan Referrals: Ray Garcia MD [Primary Care Provider] - <Ricky Mcguire - Last Filed: 03/26/18 17:51> Date of Encounter: 03/26/18 - Assessment and plan (1) Acute and chronic respiratory failure ([id number]) Current Visit: No Status: Chronic Qualifiers: Respiratory failure complication: hypoxia and hypercapnia Qualified Code(s) : J96.21 - Acute and chronic respiratory failure with hypoxia; J96.22 - Acute and chronic respiratory failure with hypercapnia (2) SIRS (systemic inflammatory response syndrome) Current Visit: Yes Status: Resolved (3) COPD exacerbation Current Visit: Yes Status: Acute (4) Essential hypertension Current Visit: No Status: Chronic (5) Diabetes Current Visit: Yes Status: Chronic Qualifiers: Diabetes mellitus type: type 2 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: without fci use Diabetes mellitus complication status: with hyperglycemia Qualified Code(s): E11.65 - Type 2 diabetes mellitus with hyperglycemia (6) Hyperlipidemia Current Visit: Yes Status: Chronic Qualifiers: Hyperlipidemia type: mixed hyperlipidemia Qualified Code(s): E78.2 - Mixed hyperlipidemia (7) Diastolic CHF Current Visit: Yes Status: Chronic Qualifiers: Heart failure chronicity: chronic Qualified Code(s): I50.32 - Chronic diastolic (congestive) heart failure (8) Sepsis Current Visit: Yes Status: Ruled-out Qualifiers: Sepsis type: sepsis due to unspecified organism Qualified Code(s): A41.9 - Sepsis, unspecified organism - Constitutional Vitals: Temp Pulse Resp BP Pulse Ox 97.8 F 87 18 135/79 98 03/26/18 15:40 03/26/18 15:40 03/26/18 15:40 03/26/18 15:40 03/26/18 15:40 Internal Medicine: Result - Labs CBC & Chem 7: 03/26/18 03:56 03/26/18 03:56 Labs: Short CBC 03/26/18 Range/Units 03:56 WBC 11.5 H (4.3-11.1) K/mcL Hgb 13.2 (11.5-15.4) g/dL Hct 40.5 (35.3-44.9) % Plt Count 223 (140-400) K/mcL Neutrophils # 10.0 H (1.6-8.9) K/mcL BMP 03/26/18 03:56 Sodium 143 Potassium 3.5 Chloride 103 Carbon Dioxide 32 H BUN 24 H Creatinine 0.59 L Glucose 204 H Calcium 8.8 - ABG Interpretation ABG results: ABG ABG pH 7.32 pH Units (7.32-7.45) 03/21/18 08:23 ABG pCO2 62 mmHg (35-45) H 03/21/18 08:23 ABG pO2 86 mmHg (85-104) 03/21/18 08:23 ABG O2 Saturation 95 % (95-98) 03/21/18 08:23 - Attending Attestation I examined this patient and my medical decision-making was reviewed with the Resident Physician on 03/26/18. I agree with the documented findings, disposition and treatment plan as described except to the extent set forth below. Ms Leon is currently admitted for acute exac COPD. She remains moderate to high risk due to potential for worsening clinical status. Ms Leon is feeling somewhat better today. No fever or chills. Mucomyst has helped her secretions. No CP or GI issues. Tolerating current meds. Exam alert Comfortable Mucus membranes dry Heart reg Scant end exp wheeze Abd soft No edema No rash TRES, EOMI I/P 1. Exac COPD 2. DM Further diagnoses and plan as above.
[2018-03-26] MEDS ORDERED: MethylPREDNISolone 40 MG/ML VIAL IVP ONE (16:53)
[2018-03-26] MEDS: Latanoprost 2.5 ML BOTTLE BOTH EYES SCH (20:21)
[2018-03-27] MEDS: Ipratropium/Albuterol Neb 3 ML IH SCH ×5 (04:10→20:23)
[2018-03-27] MEDS: Piperacillin/Tazobactam 3.375 GM in 0.9 % Sodium Chloride Mini Bag 100 ML IVPB SCH ×3 (04:46→19:51)
[2018-03-27] MEDS: *HR* Heparin 5,000 UNIT/ML VIAL SQ SCH (04:59)
[2018-03-27] MEDS: Acetylcysteine 10% 2 ML INHSOL IH SCH ×2 (07:42→16:06)
[2018-03-27] MEDS: Aspirin Enteric Coated 81 MG Tablet PO SCH (08:10)
[2018-03-27] MEDS: predniSONE 20 MG TABLET PO SCH (08:11)
[2018-03-27] MEDS: Furosemide 20 MG TABLET PO SCH (08:11)
[2018-03-27] MEDS: Cyanocobalamin (B-12) 1,000 MCG TABLET PO SCH (08:11)
[2018-03-27] MEDS: Insulin DETEMIR 100 UNIT/ML X5UNITS SQ SCH ×2 (08:11→19:52)
[2018-03-27] MEDS: Loratadine 10 MG TABLET PO SCH (08:11)
[2018-03-27] MEDS: Insulin LISPRO 300 UNITS/3 ML VIAL SQ SCH ×4 (08:12→19:52)
[2018-03-27] MEDS: Fluticasone Propionate Nasal 50 MCG/SPRAY BOTTLE NS SCH (08:19)
[2018-03-27] MEDS: (Cyclosporine [Restasis] 1 EACH) BOTH EYES SCH ×2 (08:19→19:50)
--- NOTE | 2018-03-27 10:08 | Internal Med Progress Note ---
<David Betts - Last Filed: 03/27/18 10:06> Date of Encounter: 03/27/18 Time of Encounter: 10:06 - Assessment and plan (1) COPD exacerbation Current Visit: Yes Status: Acute Assessment and plan: Known history of COPD with several hospitalizations due to exacerbation -Arterial blood gas demonstrates respiratory acidosis -Mucomyst significantly improved her ability to cough up sputum -Improving Plan - Continue taper start 60 mg prednisone PO QD currently 3 more days - Lasix 20 mg by mouth - Scheduled duo nebs - Albuterol when necessary - BiPAP as needed - Possible D/C tomorrow (2) SIRS (systemic inflammatory response syndrome) Current Visit: Yes Status: Resolved Assessment and plan: Likely resolved Patient was tachycardic with an elevated WBC count on 03/24/18 WBC is 11.5 today Patient remains afebrile CXR found no acute process blood cultures pending Plan -Blood culture x2 -day 4 Vanc -Vitals Q4 (3) Diabetes Current Visit: Yes Status: Chronic Assessment and plan: Uncontrolled plan -Continue sliding scale insulin control level -Continue Levamir 15 units subcutaneous twice a day - Monitor BG with steroid taper Qualifiers: Diabetes mellitus type: type 2 Diabetes mellitus salvage determiner insulin use: without salvage determiner use Diabetes mellitus complication status: with hyperglycemia Qualified Code(s): E11.65 - Type 2 diabetes mellitus with hyperglycemia (4) Hyperlipidemia Current Visit: Yes Status: Chronic Assessment and plan: Continue Lipitor Qualifiers: Hyperlipidemia type: mixed hyperlipidemia Qualified Code(s): E78.2 - Mixed hyperlipidemia (5) DVT prophylaxis Current Visit: Yes Status: Acute Assessment and plan: Subcutaneous heparin - Subjective Interval history: Patient states her significant improvement from yesterday. Her cough is decreased and she is able to cough up more sputum after the Mucomyst treatments. She feels increased energy decreased shortness of breath with moving although distal present. Denies fever, night sweats. Still has chills. On Zosyn day 4 for prior sepsis concern. White count was 11.5 today. - Constitutional Vitals: Temp Pulse Resp BP Pulse Ox 99 F 86 16 124/72 95 03/27/18 06:55 03/27/18 06:55 03/27/18 07:45 03/27/18 06:55 03/27/18 07:45 General appearance: Present: A&O X 3, pleasant, no acute distress - Head Head exam: Present: atraumatic, normal inspection, normocephalic - Eye Eye exam: Present: EOMI, PERRL - Respiratory Respiratory exam: Present: CTAB, wheezes. Absent: rales, respiratory distress, rhonchi, stridor - Cardiovascular Cardiovascular exam: Present: RRR, +S1, +S2. Absent: diastolic murmur, rubs, + S3, +S4, systolic murmur - Neurological Exam Neurological exam: Present: alert, CN II-XII intact, oriented X3, no focal deficits - Psychiatric Psychiatric exam: Present: normal affect, normal mood Internal Medicine: Result - Labs CBC & Chem 7: 03/26/18 03:56 03/26/18 03:56 - ABG Interpretation ABG results: ABG ABG pH 7.32 pH Units (7.32-7.45) 03/21/18 08:23 ABG pCO2 62 mmHg (35-45) H 03/21/18 08:23 ABG pO2 86 mmHg (85-104) 03/21/18 08:23 ABG O2 Saturation 95 % (95-98) 03/21/18 08:23 Consult Discharge Plan - Plan Referrals: Ray Garcia MD [Primary Care Provider] - <Ricky Mcguire A - Last Filed: 03/27/18 19:51> Date of Encounter: 03/27/18 - Assessment and plan (1) Acute and chronic respiratory failure ([id number]) Current Visit: No Status: Chronic Qualifiers: Respiratory failure complication: hypoxia and hypercapnia Qualified Code(s) : J96.21 - Acute and chronic respiratory failure with hypoxia; J96.22 - Acute and chronic respiratory failure with hypercapnia (2) SIRS (systemic inflammatory response syndrome) Current Visit: Yes Status: Resolved (3) COPD exacerbation Current Visit: Yes Status: Acute (4) Essential hypertension Current Visit: No Status: Chronic (5) Diabetes Current Visit: Yes Status: Chronic Qualifiers: Diabetes mellitus type: type 2 Diabetes mellitus salvage determiner insulin use: without salvage determiner use Diabetes mellitus complication status: with hyperglycemia Qualified Code(s): E11.65 - Type 2 diabetes mellitus with hyperglycemia (6) Hyperlipidemia Current Visit: Yes Status: Chronic Qualifiers: Hyperlipidemia type: mixed hyperlipidemia Qualified Code(s): E78.2 - Mixed hyperlipidemia (7) Diastolic CHF Current Visit: Yes Status: Chronic Qualifiers: Heart failure chronicity: chronic Qualified Code(s): I50.32 - Chronic diastolic (congestive) heart failure (8) Sepsis Current Visit: Yes Status: Ruled-out Qualifiers: Sepsis type: sepsis due to unspecified organism Qualified Code(s): A41.9 - Sepsis, unspecified organism - Constitutional Vitals: Temp Pulse Resp BP Pulse Ox 98.2 F 97 18 132/97 92 03/27/18 15:41 03/27/18 15:41 03/27/18 16:07 03/27/18 15:41 03/27/18 16:07 Internal Medicine: Result - Labs CBC & Chem 7: 03/26/18 03:56 03/26/18 03:56 - ABG Interpretation ABG results: ABG ABG pH 7.32 pH Units (7.32-7.45) 03/21/18 08:23 ABG pCO2 62 mmHg (35-45) H 03/21/18 08:23 ABG pO2 86 mmHg (85-104) 03/21/18 08:23 ABG O2 Saturation 95 % (95-98) 03/21/18 08:23 - Attending Attestation I examined this patient and my medical decision-making was reviewed with the Resident Physician on 03/27/18. I agree with the documented findings, disposition and treatment plan as described except to the extent set forth below. Ms Leon is currently admitted for acute exac COPD. She remains moderate to high risk due to potential for worsening clinical status. Ms Leon continues to slowly improve. No fever or chills. Still coughing some. No CP. No GI issues. Exam alert Comfortable Mucus membranes dry Heart reg No wheeze now Abd soft No edema I/P 1. COPD exac 2. Bronchitis Further diagnoses and plan as above.
[2018-03-27] MEDS: Latanoprost 2.5 ML BOTTLE BOTH EYES SCH (19:49)
[2018-03-28] MEDS: Ipratropium/Albuterol Neb 3 ML IH SCH ×4 (00:12→11:32)
[2018-03-28] MEDS: Acetylcysteine 10% 2 ML INHSOL IH SCH ×2 (00:12→07:55)
[2018-03-28 03:20] LABS: Basophils # 0.1 K/mcL (0.0-0.2); Basophils % 0.4 %; Eosinophils # 0.1 K/mcL (0.0-0.6); Eosinophils % 0.4 %; Hematocrit 36.7 % (35.3-44.9); Hemoglobin 11.8 g/dL (11.5-15.4); Immature Granulocytes % 4.1 % (0-4); Lymphocytes # 2.1 K/mcL (0.6-4.6); Lymphocytes % 14.9 %; Mean Corpuscular HGB Conc 32.2 g/dL (31.6-35.5); Mean Platelet Volume 9.5 fL (9.4-12.4); Monocytes # 0.8 K/mcL (0.0-1.3); Monocytes % 5.5 %; Neutrophils # 10.3 K/mcL (1.6-8.9); Platelet Count 209 K/mcL (140-400); Red Blood Count 4.37 M/mcL (3.82-4.97); Red Cell Distribution Width 15.6 % (11.5-14.5); Segmented Neutrophils % 74.7 %
[2018-03-28 03:39] LABS: BUN/Creatinine Ratio 54 (6-26); Blood Urea Nitrogen 32 mg/dL (8-23); Calcium 8.9 mg/dL (8.6-10.3); Carbon Dioxide 30 mEq/L (23-29); Chloride 103 mEq/L (98-107); Glucose 177 mg/dL (70-105); Osmolality,Calculated 301 (280-300); Potassium 3.7 mEq/L (3.5-5.1); Sodium 140 mEq/L (136-145); eGFR For Non-African Americans > 60 (> 60)
[2018-03-28] MEDS: Piperacillin/Tazobactam 3.375 GM in 0.9 % Sodium Chloride Mini Bag 100 ML IVPB SCH (04:59)
[2018-03-28] MEDS: Insulin LISPRO 300 UNITS/3 ML VIAL SQ SCH ×2 (08:12→12:03)
--- NOTE | 2018-03-28 08:49 | Discharge Summary ---
- NOTES TO OUTPATIENT PROVIDER Notes to Outpatient Provider: Ms Leon was admitted with acute exac COPD. Improved with IV abx and steroids and will be discharged on steroid taper and PO abx. Orders not resulted at time of discharge: Pending orders 03/24/18 09:35 Culture,Blood,Additional [BC] Stat Date of Encounter: 03/28/18 Time of Encounter: 08:34 - Discharge Diagnosis (1) Acute and chronic respiratory failure ([id number]) Priority: Primary Status: Chronic Qualifiers: Respiratory failure complication: hypoxia and hypercapnia Qualified Code(s) : J96.21 - Acute and chronic respiratory failure with hypoxia; J96.22 - Acute and chronic respiratory failure with hypercapnia (2) COPD exacerbation Priority: Secondary Status: Resolved (3) Essential hypertension Priority: Secondary Status: Chronic (4) Diabetes Priority: Secondary Status: Chronic Qualifiers: Diabetes mellitus type: type 2 Diabetes mellitus long term care administrator insulin use: without long term care administrator use Diabetes mellitus complication status: with hyperglycemia Qualified Code(s): E11.65 - Type 2 diabetes mellitus with hyperglycemia (5) Hyperlipidemia Priority: Secondary Status: Chronic Qualifiers: Hyperlipidemia type: mixed hyperlipidemia Qualified Code(s): E78.2 - Mixed hyperlipidemia (6) Diastolic CHF Priority: Secondary Status: Chronic Qualifiers: Heart failure chronicity: chronic Qualified Code(s): I50.32 - Chronic diastolic (congestive) heart failure (7) Sepsis Priority: Secondary Status: Ruled-out Qualifiers: Sepsis type: sepsis due to unspecified organism Qualified Code(s): A41.9 - Sepsis, unspecified organism Hospital course: Ms. Leon is a 62 year old female with hx of COPD presented to ED with complaints of progressively worsening dyspnea. She was found to be in moderate respiratory distress on presentation and subsequently admitted. Ms Leon was admitted to [facility]. She was stared on aerosols, steroids, abx and was placed on bipap on admission. She had very slow improvement at the beginning of her stay and continued to have tachycardia and there was concern for sepsis. Blood cx and CXR done and abx were broadened at that time. After change to Zosyn and Vancomycin she began to improve. Vancomycin discontinued and steroids changed to PO. She continued to slowly improve and was able to be on her home level of oxygen supplementation. She did have an issue with bleeding from a subqu heparin injection site but this resolved. Today she is afebrile. She is nearly at baseline and feels ready for discharge home. She will complete course of abx and steroid taper and follow up with PCP. Discharge discussed with: patient, nurse - Time Spent with Patient Total time spent providing and/or coordinating discharge services: 41min - Discharge Medications Prescriptions: Amoxicillin/Clavulanate [Augmentin] 875 mg PO BIDWM #11 tablet predniSONE [PredniSONE] See Taper PO DAILY #26 tablet Home Medications: Albuterol Sulfate [Proair Hfa] 2 puff IH Q4H PRN 07/14/16 [History] Atorvastatin Calcium [Lipitor] 80 mg PO QAM 07/14/16 [History] Sertraline [Zoloft] 50 mg PO DAILY 07/15/16 [History] Aspirin Enteric Coated [Aspirin EC] 81 mg PO DAILY 10/22/16 [History] Cyanocobalamin (Vitamin B-12) [Vitamin B-12] 1,000 mcg PO DAILY 10/22/16 [ History] Cyclosporine [Restasis] 1 each OP BID 10/22/16 [History] Ferrous Sulfate 325 mg PO DAILY 10/22/16 [History] Furosemide [Lasix] 20 mg PO DAILY 10/22/16 [History] Travoprost [Travatan Z] 1 drop OP QPM 10/22/16 [History] metFORMIN [Glucophage] 500 mg PO BIDWM #60 tablet 10/27/16 [Rx] Cyclobenzaprine HCl 10 mg PO HS 04/01/17 [History] Ergocalciferol (VITAMIN D2) [Vitamin D2] 50,000 unit PO QWEEK 04/01/17 [History] Umeclidinium [place] [Incruse Ellipta] 1 puff IH DAILY 04/01/17 [History] Nitroglycerin 0.4 mg PO Q5M PRN 07/08/17 [History] Ezetimibe [Zetia] 10 mg PO DAILY 09/01/17 [History] Albuterol Neb [Proventil Neb] 2.5 mg IH TID 09/22/17 [History] Metoprolol [Lopressor] 12.5 mg PO DAILY 09/22/17 [History] Oxygen 2.5 l NS AD 09/22/17 [History] Potassium Chloride 20 meq PO DAILY 09/22/17 [History] Loratadine [Claritin] 10 mg PO DAILY #30 tablet 09/26/17 [Rx] Dapagliflozin Propanediol [Farxiga] 5 mg PO DAILY 12/19/17 [History] Fluticasone Propionate Nasal [Flonase] 1 spray NS DAILY 12/19/17 [History] Budesonide/Formoterol 160/4.5 [Symbicort 160/4.5] 2 puff IH BIDR 01/19/18 [ History] Amoxicillin/Clavulanate [Augmentin] 875 mg PO BIDWM #11 tablet 03/28/18 [Rx] GuaiFENesin ER [Mucinex] 600 mg PO BID PRN tbbp.12hr 03/28/18 [Rx] predniSONE [PredniSONE] See Taper PO DAILY #26 tablet 03/28/18 [Rx] Allergies/Adverse Reactions: 3 Allergy/AdvReac Type Severity Reaction Status Date / Time acetaminophen [From Vicodin] AdvReac Headache Verified 01/19/18 17:41 hydrocodone [From Vicodin] AdvReac Headache Verified 01/19/18 17:41 methylprednisolone AdvReac Itching Verified 01/19/18 17:41 [From Solu-Medrol] Date of admission: 03/21/18 20:50 Primary care physician: Ray Garcia Consults: 03/24/18 10:45 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 Absent: lymphadenopathy - Respiratory Respiratory exam: Present: decreased breath sounds, CTAB. Absent: rales, rhonchi, wheezes - Cardiovascular Cardiovascular exam: Present: RRR. Absent: irregular rhythm, systolic murmur - GI/Abdominal GI/Abdominal exam: Present: soft. Absent: tenderness - Extremities Exam Extremities exam: Present: warm. Absent: tenderness - Neurological Exam Neurological exam: Present: alert, oriented X3, no focal deficits - Skin Skin exam: Present: dry, warm. Absent: rash - Patient Status Disposition: Home, Self-Care Condition: Good Functional capacity at discharge: independent ambulation Overall status at discharge: patient is progressing back to baseline - Discharge Instructions Follow Up With: Ray Garcia MD [Primary Care Provider] - - Diet and Activity Activity: increase activity as tolerated Diet: advance to your usual diet
[2018-03-28] MEDS: predniSONE 20 MG TABLET PO SCH (09:22)
[2018-03-28] MEDS: Aspirin Enteric Coated 81 MG Tablet PO SCH (09:22)
[2018-03-28] MEDS: Furosemide 20 MG TABLET PO SCH (09:22)
[2018-03-28] MEDS: Loratadine 10 MG TABLET PO SCH (09:23)
[2018-03-28] MEDS: Cyanocobalamin (B-12) 1,000 MCG TABLET PO SCH (09:25)
[2018-03-28] MEDS: Insulin DETEMIR 100 UNIT/ML X5UNITS SQ SCH (09:27)
[2018-03-28] MEDS: Fluticasone Propionate Nasal 50 MCG/SPRAY BOTTLE NS SCH (09:28)
[2018-03-28] MEDS: (Cyclosporine [Restasis] 1 EACH) BOTH EYES SCH (09:29)
[2018-03-28 11:39] VITALS: BP 128/86
== END 2018-03-28 13:59 | disposition home or self-care (01) | DRG 190 ==
LOC: EMEROO 01:29 → 2NENU 01:29 → SUATTDRO 20:50
PROVIDERS: ADMIT Student in an Organized Health Care Education/Training Program; ATTEND Internal Medicine

== ENCOUNTER 2018-06-18 08:05 | Inpatient (IN) ==
[2018-06-18] MEDS ORDERED: Ipratropium/Albuterol Neb 3 ML IH ONE (08:20)
[2018-06-18] MEDS ORDERED: methylPREDNISolone 125 MG/2 ML VIAL IVP ONE (08:21)
--- NOTE | 2018-06-18 08:26 | Emergency Department Note ---
Disposition Clinical Impression: COPD exacerbation Hypotension arterial Qualifiers: Hypotension type: unspecified hypotension type Qualified Code(s): I95.9 - Hypotension, unspecified Disposition: Admitted As Inpatient Condition: Good Referrals: Ray Garcia MD [Primary Care Provider] - Forms: ED Satisfaction Letter Time of Disposition: 09:45 SOB HPI - General Chief Complaint: ED Shortness of Breath/Dyspnea Stated Complaint: COPD Time Seen by Provider: 06/18/18 08:08 Source: patient, EMS Mode of arrival: EMS Limitations: no limitations Nursing Notes Reviewed: Yes Vital Signs Reviewed: Yes - History of Present Illness Patient is a 62-year-old female with past medical history of hypertension, hyperlipidemia, diabetes, smoking, COPD. She states that she uses oxygen as needed at home. She also uses steroid inhaler and albuterol as needed. She usually schedules her albuterol every 4-6 hours at home. She states that this morning, she woke up and had some centered chest discomfort/tightness and worsening shortness of breath, worsened sputum production. No color change in sputum. No fevers, nausea, vomiting, diarrhea, abdominal pain. No history of any DVT or PE, no leg swelling or calf pain. Not on any blood thinners. Patient was given 1 DuoNeb prior to arrival, no steroids were given. - Related Data Home Medications Medication Instructions Recorded Confirmed Albuterol Sulfate [Proair Hfa] 2 puff IH Q4H PRN 07/14/16 03/21/18 Atorvastatin Calcium [Lipitor] 80 mg PO QAM 07/14/16 03/21/18 Sertraline [Zoloft] 50 mg PO DAILY 07/15/16 03/21/18 Aspirin Enteric Coated [Aspirin EC] 81 mg PO DAILY 10/22/16 03/21/18 Cyanocobalamin (Vitamin B-12) 1,000 mcg PO DAILY 10/22/16 03/21/18 [Vitamin B-12] Cyclosporine [Restasis] 1 each OP BID 10/22/16 03/21/18 Ferrous Sulfate 325 mg PO DAILY 10/22/16 03/21/18 Furosemide [Lasix] 20 mg PO DAILY 10/22/16 03/21/18 Travoprost [Travatan Z] 1 drop OP QPM 10/22/16 03/21/18 Cyclobenzaprine HCl 10 mg PO HS 04/01/17 03/21/18 Ergocalciferol (VITAMIN D2) 50,000 unit PO QWEEK 04/01/17 03/21/18 [Vitamin D2] Umeclidinium [place] [Incruse 1 puff IH DAILY 04/01/17 03/21/18 Ellipta] Nitroglycerin 0.4 mg PO Q5M PRN 07/08/17 03/21/18 Ezetimibe [Zetia] 10 mg PO DAILY 09/01/17 03/21/18 Albuterol Neb [Proventil Neb] 2.5 mg IH TID 09/22/17 03/21/18 Metoprolol [Lopressor] 12.5 mg PO DAILY 09/22/17 03/21/18 Oxygen 2.5 l NS AD 09/22/17 03/21/18 Potassium Chloride 20 meq PO DAILY 09/22/17 03/21/18 Dapagliflozin Propanediol [Farxiga] 5 mg PO DAILY 12/19/17 03/21/18 Fluticasone Propionate Nasal 1 spray NS DAILY 12/19/17 03/21/18 [Flonase] Budesonide/Formoterol 160/4.5 2 puff IH BIDR 01/19/18 03/21/18 [Symbicort 160/4.5] Previous Rx's Medication Instructions Recorded metFORMIN [Glucophage] 500 mg PO BIDWM #60 tablet 10/27/16 Loratadine [Claritin] 10 mg PO DAILY #30 tablet 09/26/17 Amoxicillin/Clavulanate [Augmentin] 875 mg PO BIDWM #11 tablet 03/28/18 GuaiFENesin ER [Mucinex] 600 mg PO BID PRN tbbp.12hr 03/28/18 predniSONE [PredniSONE] See Taper PO DAILY #26 tablet 03/28/18 Allergies Allergy/AdvReac Type Severity Reaction Status Date / Time acetaminophen [From Vicodin] AdvReac Headache Verified 01/19/18 17:41 hydrocodone [From Vicodin] AdvReac Headache Verified 01/19/18 17:41 methylprednisolone AdvReac Itching Verified 01/19/18 17:41 [From Solu-Medrol] All systems ED: reviewed and negative except as stated. Constitutional: Denies: fever Cardiovascular: Reports: chest pain Respiratory: Reports: cough, dyspnea, wheezes, sputum production. Denies: hemoptysis Gastrointestinal: Denies: abdominal pain, nausea, vomiting, diarrhea Integumentary: Denies: rash Neurological: Denies: headache, weakness, numbness, paresthesias Past Medical History - Past Medical History Attestation: Yes The following information was validated with the patient. Source: patient Medical history: Reports: CHF, COPD, diabetes, GERD, glaucoma, hyperlipidemia, hypertension Surgical history: Reports: cataract, hysterectomy 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: Reports: anxiety, depression [employer] history: Reports: other - Social History Smoking Status: Former smoker Smokeless Tobacco Status: No Alcohol use: Reports: none Drug use: Reports: none Physical Exam - General General appearance: alert, in no apparent distress - Head Head exam: atraumatic, normocephalic, normal inspection - Eye Eye exam: Present: normal appearance, PERRL, EOMI - ENT ENT exam: normal exam, normal oropharynx, mucous membranes moist - Neck Neck exam: Present: normal inspection, full ROM, trachea midline - Chest Chest inspection: Present: normal inspection, symmetric chest wall rise - Respiratory Respiratory exam: Present: wheezes (Significant wheezes throughout with decreased aeration). Absent: stridor, accessory muscle use - Cardiovascular Cardiovascular exam: Present: normal rhythm, tachycardia, normal heart sounds - Abdominal Exam Abdominal exam: Present: soft, Non-Tender. Absent: tenderness, distention, gu arding, rebound, rigidity - Extremities Exam Extremities exam: Present: normal inspection, full ROM. Absent: tenderness, pedal edema - Neurological Exam Neurological exam: Present: alert, oriented X3 - Psychiatric Psychiatric exam: Present: normal affect, normal mood - Skin Skin exam: Present: warm, dry, intact, normal color Course Course Narrative: Patient was tachycardic on presentation, likely secondary to the albuterol and DuoNeb that she received prior to arrival. Otherwise, the rest of the vitals were within normal limits. Patient is currently on 2 L nasal cannula oxygen. EKG shows sinus tachycardia with no acute ST changes. We will give the patient 2 additional DuoNeb, Solu-Medrol 125. We will also perform chest x-ray, basic blood work, troponin level. 09:25. Patient was reassessed. She is having a little bit more shortness of breath. Her wheezes have improved but are still present. She is now speaking and 3/and says. Troponin negative. BNP within normal limits. Chest x-ray shows no acute cardio pulmonary process. Patient is currently satting in the upper 90s on her 2 L nasal cannula oxygen. Patient does not feel comfortable with going home as she states that she is still more short of breath above her baseline and does not feel that she can ambulate due to shortness of breath. She has refused any BiPAP at this time. We will contact the hospitalist for adm ission. Vital Signs Temperature 97.9 F 06/18/18 08:12 Pulse Rate 127 06/18/18 08:12 Respiratory Rate 21 06/18/18 08:12 Blood Pressure 132/94 06/18/18 08:12 O2 Sat by Pulse Oximetry 95 06/18/18 08:12 Temperature 97.9 F 06/18/18 08:12 Pulse Rate 127 06/18/18 08:12 Respiratory Rate 21 06/18/18 08:12 Blood Pressure 132/94 06/18/18 08:12 O2 Sat by Pulse Oximetry 97 06/18/18 08:16 Oxygen Delivery Oxygen Delivery Nasal Cannula Shortness of Breath/Dyspnea - [facility] Narrative Medical decision making narrative: Patient was tachycardic on presentation, likely secondary to the albuterol and DuoNeb that she received prior to arrival. Otherwise, the rest of the vitals were within normal limits. Patient is currently on 2 L nasal cannula oxygen. EKG shows sinus tachycardia with no acute ST changes. We will give the patient 2 additional DuoNeb, Solu-Medrol 125. We will also perform chest x-ray, basic blood work, troponin level. 09:25. Patient was reassessed. She is having a little bit more shortness of breath. Her wheezes have improved but are still present. She is now speaking and 3/and says. Troponin negative. BNP within normal limits. Chest x-ray shows no acute cardio pulmonary process. Patient is currently satting in the upper 90s on her 2 L nasal cannula oxygen. Patient does not feel comfortable with going home as she states that she is still more short of breath above her baseline and does not feel that she can ambulate due to shortness of breath. She has refused any BiPAP at this time. We will contact the hospitalist for admission. - Medical Records Medical records reviewed: Yes I reviewed the patient's medical records. - Lab Data Lab results reviewed: Yes I reviewed the patient's lab results. Result diagrams: 06/18/18 08:34 06/18/18 08:34 Lab Results 06/18/18 06/18/18 06/18/18 Range/Units 08:34 08:34 08:34 WBC 8.5 (4.3-11.1) K/mcL RBC 4.36 (3.82-4.97) M/mcL Hgb 11.6 (11.5-15.4) g/dL Hct 36.9 (35.3-44.9) % MCV 84.6 (83.0-100.0) fL MCH 26.6 L (28.0-33.3) pg MCHC 31.4 L (31.6-35.5) g/dL RDW 14.4 (11.5-14.5) % Plt Count 275 (140-400) K/mcL MPV 8.9 L (9.4-12.4) fL Immature Gran % 0.4 (0-4) % Seg Neutrophils % 59.5 % Lymphocytes % 27.7 % Monocytes % 7.8 % Eosinophils % 4.2 % Basophils % 0.4 % Neutrophils # 5.1 (1.6-8.9) K/mcL Lymphocytes # 2.4 (0.6-4.6) K/mcL Monocytes # 0.7 (0.0-1.3) K/mcL Eosinophils # 0.4 (0.0-0.6) K/mcL Basophils # 0.0 (0.0-0.2) K/mcL Sodium 142 (136-145) mEq/L Potassium 3.9 (3.5-5.1) mEq/L Chloride 107 (98-107) mEq/L Carbon Dioxide 27 (23-29) mEq/L BUN 15 (8-23) mg/dL Creatinine 0.58 L (0.60-1.20) mg/dL Est GFR ( Amer) > 60 (> 60) Est GFR (Non-Af Amer) > 60 (> 60) BUN/Creatinine Ratio 26 (6-26) Glucose 131 H (70-105) mg/dL Calculated Osmolality 297 (280-300) Calcium 9.3 (8.6-10.3) mg/dL Troponin I < 0.03 (< 0.04) ng/mL B-Natriuretic Peptide 8 (Less than 100) pg/mL - Radiology Data Radiology results reviewed: Yes I reviewed the patient's radiology results. Chest X-Ray 06/18/18 08:19 IMPRESSION: 1. No active pulmonary disease. D/ / Naseem Lofton MD / Naseem Lofton MD Interpreting Provider: Naseem Lofton MD - EKG Data EKG attestation: Yes I reviewed and interpreted this EKG. EKG results narrative: 06/18/18 at 08:18. Sinus tach. HR 115. NV 130. QRS 91. QTC 457. Normal axis. No acute ST elevation or depression. S.B.A.R. - S.B.A.R. Situation: Demographics, MOA Background: Presenting Complaint, Relevant PMH, Meds, & Allergies Assessment: Vital Signs, Course and respsone to treatment, Exam Concerns, Patient/Family Expectation, Pertinant Lab Results Recommendation: Barrier(s) to disposition, Recommendation based on pending studies, treatments, or consults S.B.A.R. Report Given to: Dr. Chau
[2018-06-18 08:46] LABS: Basophils % 0.4 %; Eosinophils # 0.4 K/mcL (0.0-0.6); Eosinophils % 4.2 %; Hematocrit 36.9 % (35.3-44.9); Hemoglobin 11.6 g/dL (11.5-15.4); Immature Granulocytes % 0.4 % (0-4); Lymphocytes # 2.4 K/mcL (0.6-4.6); Lymphocytes % 27.7 %; Mean Corpuscular HGB Conc 31.4 g/dL (31.6-35.5); Mean Corpuscular Hemoglobin 26.6 pg (28.0-33.3); Mean Corpuscular Volume 84.6 fL (83.0-100.0); Mean Platelet Volume 8.9 fL (9.4-12.4); Monocytes # 0.7 K/mcL (0.0-1.3); Monocytes % 7.8 %; Neutrophils # 5.1 K/mcL (1.6-8.9); Platelet Count 275 K/mcL (140-400); Red Blood Count 4.36 M/mcL (3.82-4.97); Red Cell Distribution Width 14.4 % (11.5-14.5); Segmented Neutrophils % 59.5 %
[2018-06-18 09:08] LABS: BUN/Creatinine Ratio 26 (6-26); Blood Urea Nitrogen 15 mg/dL (8-23); Calcium 9.3 mg/dL (8.6-10.3); Carbon Dioxide 27 mEq/L (23-29); Chloride 107 mEq/L (98-107); Glucose 131 mg/dL (70-105); Osmolality,Calculated 297 (280-300); Potassium 3.9 mEq/L (3.5-5.1); Sodium 142 mEq/L (136-145); Troponin I < 0.03 ng/mL (< 0.04); eGFR For Non-African Americans > 60 (> 60)
[2018-06-18] MEDS ORDERED: 0.9 % Sodium Chloride 1,000 ML IVC ONE (09:37)
[2018-06-18] MEDS ORDERED: Levofloxacin 750 MG/150 ML 750 MG/150 ML BAG IVPB ONE (09:42)
--- NOTE | 2018-06-18 09:42 | Emergency Department Note ---
Disposition Clinical Impression: COPD exacerbation Hypotension arterial Qualifiers: Hypotension type: unspecified hypotension type Qualified Code(s): I95.9 - Hypotension, unspecified Disposition: Admitted As Inpatient Condition: Good Referrals: Ray Garcia MD [Primary Care Provider] - Forms: ED Satisfaction Letter General Adult HPI - General Chief complaint: ED Shortness of Breath/Dyspnea Stated complaint: COPD Time Seen by Provider: 06/18/18 08:08 Source: patient, EMS Mode of arrival: EMS Limitations: no limitations Nursing Notes Reviewed: Yes Vital Signs Reviewed: Yes - History of Present Illness HPI Narrative: ED ATTESTATION NOTE: I examined this patient and my medical decision-making was reviewed with the Resident Physician/[employer]/PA/Student. I have personally performed a face to face evaluation on this patient & I agree with the documented findings, disposition and treatment plan as described except to the extent set forth below. Patient was seen with emergency medicine resident Dr. Dav Reddy please see copy of his note for details of this encounter Briefly: 62-year-old female smoker home O2 dependent COPD patient presents by EMS for increasing shortness of breath and sputum. No guarding or yellow sputum noted no fevers or chills just feeling increasing short of breath decreased exertional tolerance increased dyspnea on exertion. Patient scattered wheezes bilaterally came and sat about 96% on 2 L nasal cannula her baseline patient got 3 DuoNeb treatments got steroids chest x-ray read by radiology as no acute process. Patient's private we checked the patient she said that she did not quite feel a lipoma to go home admission was accomplished to the hospitalist blood pressure came back to 86/64 but she is awake and alert sitting upright in bed feeling little dizzy. Patient getting a liter of normal saline patient is a breakfast tray. Patient will get close observation and monitoring. Provided 45 minutes critical care service for this patient. Admission pending Pain Scale: 5 - Related Data Home Medications Medication Instructions Recorded Confirmed Albuterol Sulfate [Proair Hfa] 2 puff IH Q4H PRN 07/14/16 03/21/18 Atorvastatin Calcium [Lipitor] 80 mg PO QAM 07/14/16 03/21/18 Sertraline [Zoloft] 50 mg PO DAILY 07/15/16 03/21/18 Aspirin Enteric Coated [Aspirin EC] 81 mg PO DAILY 10/22/16 03/21/18 Cyanocobalamin (Vitamin B-12) 1,000 mcg PO DAILY 10/22/16 03/21/18 [Vitamin B-12] Cyclosporine [Restasis] 1 each OP BID 10/22/16 03/21/18 Ferrous Sulfate 325 mg PO DAILY 10/22/16 03/21/18 Furosemide [Lasix] 20 mg PO DAILY 10/22/16 03/21/18 Travoprost [Travatan Z] 1 drop OP QPM 10/22/16 03/21/18 Cyclobenzaprine HCl 10 mg PO HS 04/01/17 03/21/18 Ergocalciferol (VITAMIN D2) 50,000 unit PO QWEEK 04/01/17 03/21/18 [Vitamin D2] Umeclidinium [place] [Incruse 1 puff IH DAILY 04/01/17 03/21/18 Ellipta] Nitroglycerin 0.4 mg PO Q5M PRN 07/08/17 03/21/18 Ezetimibe [Zetia] 10 mg PO DAILY 09/01/17 03/21/18 Albuterol Neb [Proventil Neb] 2.5 mg IH TID 09/22/17 03/21/18 Metoprolol [Lopressor] 12.5 mg PO DAILY 09/22/17 03/21/18 Oxygen 2.5 l NS AD 09/22/17 03/21/18 Potassium Chloride 20 meq PO DAILY 09/22/17 03/21/18 Dapagliflozin Propanediol [Farxiga] 5 mg PO DAILY 12/19/17 03/21/18 Fluticasone Propionate Nasal 1 spray NS DAILY 12/19/17 03/21/18 [Flonase] Budesonide/Formoterol 160/4.5 2 puff IH BIDR 01/19/18 03/21/18 [Symbicort 160/4.5] Previous Rx's Medication Instructions Recorded metFORMIN [Glucophage] 500 mg PO BIDWM #60 tablet 10/27/16 Loratadine [Claritin] 10 mg PO DAILY #30 tablet 09/26/17 Amoxicillin/Clavulanate [Augmentin] 875 mg PO BIDWM #11 tablet 03/28/18 GuaiFENesin ER [Mucinex] 600 mg PO BID PRN tbbp.12hr 03/28/18 predniSONE [PredniSONE] See Taper PO DAILY #26 tablet 03/28/18 Allergies Allergy/AdvReac Type Severity Reaction Status Date / Time acetaminophen [From Vicodin] AdvReac Headache Verified 01/19/18 17:41 hydrocodone [From Vicodin] AdvReac Headache Verified 01/19/18 17:41 methylprednisolone AdvReac Itching Verified 01/19/18 17:41 [From Solu-Medrol] Constitutional: Denies: fever Cardiovascular: Reports: chest pain Respiratory: Reports: cough, dyspnea, wheezes, sputum production. 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 - Social History Smoking Status: Former smoker Smokeless Tobacco Status: No Alcohol use: Reports: none Drug use: Reports: none Physical Exam - General Limitations: no limitations General appearance: alert, in no apparent distress Course Vital Signs Temperature 97.9 F 06/18/18 08:12 Pulse Rate 127 06/18/18 08:12 Respiratory Rate 21 06/18/18 08:12 Blood Pressure 132/94 06/18/18 08:12 O2 Sat by Pulse Oximetry 95 06/18/18 08:12 Temperature 97.9 F 06/18/18 08:12 Pulse Rate 127 06/18/18 08:12 Respiratory Rate 21 06/18/18 08:12 Blood Pressure 132/94 06/18/18 08:12 O2 Sat by Pulse Oximetry 97 06/18/18 08:16 Oxygen Delivery Oxygen Delivery Nasal Cannula Medical Decision Making - Lab Data Result diagrams: 06/18/18 08:34 06/18/18 08:34 Lab Results 06/18/18 06/18/18 06/18/18 Range/Units 08:34 08:34 08:34 WBC 8.5 (4.3-11.1) K/mcL RBC 4.36 (3.82-4.97) M/mcL Hgb 11.6 (11.5-15.4) g/dL Hct 36.9 (35.3-44.9) % MCV 84.6 (83.0-100.0) fL MCH 26.6 L (28.0-33.3) pg MCHC 31.4 L (31.6-35.5) g/dL RDW 14.4 (11.5-14.5) % Plt Count 275 (140-400) K/mcL MPV 8.9 L (9.4-12.4) fL Immature Gran % 0.4 (0-4) % Seg Neutrophils % 59.5 % Lymphocytes % 27.7 % Monocytes % 7.8 % Eosinophils % 4.2 % Basophils % 0.4 % Neutrophils # 5.1 (1.6-8.9) K/mcL Lymphocytes # 2.4 (0.6-4.6) K/mcL Monocytes # 0.7 (0.0-1.3) K/mcL Eosinophils # 0.4 (0.0-0.6) K/mcL Basophils # 0.0 (0.0-0.2) K/mcL Sodium 142 (136-145) mEq/L Potassium 3.9 (3.5-5.1) mEq/L Chloride 107 (98-107) mEq/L Carbon Dioxide 27 (23-29) mEq/L BUN 15 (8-23) mg/dL Creatinine 0.58 L (0.60-1.20) mg/dL Est GFR ( Amer) > 60 (> 60) Est GFR (Non-Af Amer) > 60 (> 60) BUN/Creatinine Ratio 26 (6-26) Glucose 131 H (70-105) mg/dL Calculated Osmolality 297 (280-300) Calcium 9.3 (8.6-10.3) mg/dL Troponin I < 0.03 (< 0.04) ng/mL B-Natriuretic Peptide 8 (Less than 100) pg/mL
[2018-06-18] MEDS ORDERED: 0.9 % Sodium Chloride 1,000 ML IVC SCH (10:00)
[2018-06-18] MEDS ORDERED: Naloxone 0.4 MG/ML INJ IVP PRN (10:00)
[2018-06-18] MEDS ORDERED: Acetaminophen 650 MG RECTAL SUPP RC PRN (10:00)
--- NOTE | 2018-06-18 10:16 | Internal Med History&Physical ---
Date of Encounter: 06/18/18 Time of Encounter: 10:10 Internal Medicine - H&P: HPI Chief complaint: Shortness of breath Admitted From: Home Plans for Post Hospital Care: Home History of present illness: Ms. Leon is a 62 year old female with history of COPD, CHF, hyperlipidemia, hypertension presented to the emergency department with complaint of shortness of breath. As per patient shortness of breath started the day before admission and has progressively worsened prompting her to come to the emergency department for further evaluation. Her shortness of breath started suddenly, associated with wheezing and chest tightness. She denies cough or sputum production. Patient is compliant with her inhalers however since yesterday she was forced to use her nebulizers more often than usual with out relief. cannot recall aggravating factors. Her symptoms are similar to her symptoms when she has COPD exacerbation. She reports multiple hospitalization for COPD exacerbations, denies previous intubation. She has not received the influenza vaccination this year, her last pneumonia vaccination was about 5 years ago. Denies recent travel, sick contacts or recent antibiotic use. denies fever, chills, chest pain, palpitations, leg edema, calf tenderness, syncope, LOC. in the she was found to be tachypnic with diffuse wheezing. She was given IV steroids and nebulizers with minimal relief so she was endorsed for admission for COPD exacerbation. Past Med Surg Social Fam HX - Past Medical History Medical history: CHF, COPD, diabetes, GERD, glaucoma, hyperlipidemia, hypertension Additional medical history: angina, anemia 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: anxiety, depression - Past Surgical History Surgical History: cataract, hysterectomy Additional surgical history: polyp removal - Social History Smoking Status: Former smoker Smokeless Tobacco Status: No Alcohol use: none Drug use: none - Family History Mother Adopted: No Living Status: Hx Family Cardiac Disorders: No Hx Family Respiratory Disorders: No Hx Family Cancer: Yes (Pancreatic cancer) Hx Family GI Disorders: No Hx Family Endocrine Disorder: No Hx Family Neuromuscular Disorders: No Hx Family Neurologic Disorders: No Hx Family HEENT Disorders: No Hx Family Autoimmune Disorders: No Father Living Status: Hx Family Cardiac Disorders: Yes Hx Family Respiratory Disorders: Yes Hx Family Cancer: Yes Hx Family GI Disorders: No Hx Family Endocrine Disorder: Yes (Diabetes) Hx Family Neuromuscular Disorders: No Hx Family Neurologic Disorders: No Hx Family HEENT Disorders: No Hx Family Autoimmune Disorders: No Internal Medicine - H&P: Meds Albuterol Sulfate [Proair Hfa] 2 puff IH Q4H PRN 07/14/16 [History] Atorvastatin Calcium [Lipitor] 80 mg PO QAM 07/14/16 [History] Sertraline [Zoloft] 50 mg PO DAILY 07/15/16 [History] Aspirin Enteric Coated [Aspirin EC] 81 mg PO DAILY 10/22/16 [History] Cyanocobalamin (Vitamin B-12) [Vitamin B-12] 1,000 mcg PO DAILY 10/22/16 [History] Cyclosporine [Restasis] 1 drop BOTH EYES BID 10/22/16 [History] Ferrous Sulfate 325 mg PO DAILY 10/22/16 [History] Furosemide [Lasix] 20 mg PO DAILY 10/22/16 [History] Travoprost [Travatan Z] 1 drop BOTH EYES QPM 10/22/16 [History] metFORMIN [Glucophage] 500 mg PO BIDWM #60 tablet 10/27/16 [Rx] Ergocalciferol (VITAMIN D2) [Vitamin D2] 50,000 unit PO MO 04/01/17 [History] Umeclidinium [place] [Incruse Ellipta] 1 puff IH DAILY 04/01/17 [History] Nitroglycerin 0.4 mg PO Q5M PRN 07/08/17 [History] Ezetimibe [Zetia] 10 mg PO DAILY 09/01/17 [History] Albuterol Neb [Proventil Neb] 2.5 mg IH TID PRN 09/22/17 [History] Oxygen 2.5 l NS AD 09/22/17 [History] Loratadine [Claritin] 10 mg PO DAILY #30 tablet 09/26/17 [Rx] Dapagliflozin Propanediol [Farxiga] 5 mg PO DAILY 12/19/17 [History] Budesonide/Formoterol 160/4.5 [Symbicort 160/4.5] 2 puff IH BIDR 01/19/18 [History] GuaiFENesin ER [Mucinex] 600 mg PO BID PRN tbbp.12hr 03/28/18 [Rx] Latanoprost [Xalatan] 1 drop BOTH EYES HS 06/18/18 [History] Omeprazole [PriLOSEC] 40 mg PO DAILY 06/18/18 [History] Potassium Chloride [K-Tab ER] 20 meq PO DAILY 06/18/18 [History] Roflumilast [Daliresp] 500 mcg PO DAILY 06/18/18 [History] Allergy/AdvReac Type Severity Reaction Status Date / Time acetaminophen [From Vicodin] AdvReac Headache Verified 01/19/18 17:41 hydrocodone [From Vicodin] AdvReac Headache Verified 01/19/18 17:41 methylprednisolone AdvReac Itching Verified 01/19/18 17:41 [From Solu-Medrol] All Systems PM: review of systems was performed and is negative for pertinent findings except as documented above in the HPI. - Constitutional Vitals: Temp Pulse Resp BP Pulse Ox 97.9 F 127 18 132/94 95 06/18/18 08:12 06/18/18 08:12 06/18/18 09:57 06/18/18 08:12 06/18/18 09:57 Exam: General: Patient is alert, oriented, in mild distress, speaks in 5 word sentences Head: atraumatic, normocephalic, Eye: normal appearance, PERRL, no scleral icterus, no conjunctival injection ENT: mucous membranes moist, normal external ear exam Neck: normal inspection, trachea midline, full ROM, no carotid bruits Chest: normal inspection, symmetric chest rise Respiratory: Diffuse wheezing in the anterior and posterior chest, occasional crackles. Cardiovascular: Tachycardic s1 and s2 No clicks, rubs, gallops, or murmors. Abdomen: Bowel sounds present normoactive x-4 quadrants. Abdomen is soft, nondistended. no Epigastric tenderness. No guarding or rebound. No organomegaly noted, obese musculoskeletal: Spontaneously moving all extremities. no edema, no calf tenderness Skin: warm, dry, intact. Neuro: Alert and oriented x4. Sensation light touch intact. Cranial nerves 2- 12 is intact. Not aphasic rapid hand movements intact, [id number] intact, Psych: Patient's affect is normal Internal Med - H&P Results - Labs CBC & Chem 7: 06/18/18 08:34 06/18/18 08:34 Labs: Short CBC 06/18/18 Range/Units 08:34 WBC 8.5 (4.3-11.1) K/mcL Hgb 11.6 (11.5-15.4) g/dL Hct 36.9 (35.3-44.9) % Plt Count 275 (140-400) K/mcL Neutrophils # 5.1 (1.6-8.9) K/mcL BMP 06/18/18 08:34 Sodium 142 Potassium 3.9 Chloride 107 Carbon Dioxide 27 BUN 15 Creatinine 0.58 L Glucose 131 H Calcium 9.3 Cardiac Enzymes 06/18/18 Range/Units 08:34 Troponin I < 0.03 (< 0.04) ng/mL - Impressions ITS Impressions Chest X-Ray 06/18/18 08:19 IMPRESSION: 1. No active pulmonary disease. D/ / Naseem Lofton MD / Naseem Lofton MD Interpreting Provider: Naseem Lofton MD - Assessment and plan (1) Acute exacerbation of chronic obstructive pulmonary disease (COPD) Current Visit: Yes Status: Acute Assessment and plan: Solu-Medrol 125 mg was given in the ED will continue with 40 mg every 8 hours DuoNeb's every 4 hours Urine antigens, sputum cultures Respiratory viral panel Levaquin daily admission EKG pending - follow QT BiPAP as needed for respiratory distress Oxygen via nasal cannula keep saturations above 92% continuous pulse OX ADmission EKG pending Will need influenza and pneumonia vaccination upon discharge. (2) Type 2 diabetes mellitus Current Visit: No Status: Chronic Assessment and plan: Hold oral hypoglycemic agents Start her on sliding scale insulin A1c in a.m. 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 Diabetes mellitus complication status: with hyperglycemia Qualified Code(s): E11.65 - Type 2 diabetes mellitus with hyperglycemia (3) HTN (hypertension) Current Visit: Yes Status: Acute Assessment and plan: Continue home medications if not contraindicated Qualifiers: Hypertension type: essential hypertension Qualified Code(s): I10 - Essential (primary) hypertension (4) HLD (hyperlipidemia) Current Visit: Yes Status: Acute Assessment and plan: Continue home medications Qualifiers: Hyperlipidemia type: unspecified Qualified Code(s): E78.5 - Hyperlipidemia, unspecified (5) DVT prophylaxis Current Visit: No Status: Acute Assessment and plan: heparin SC - Time Spent With Patient Total time spent is greater than 50% in coordination of care (as documented) at patient's floor/unit and/or counseling patient:
[2018-06-18] MEDS ORDERED: Dextrose Gel 15 GM/37.5 ML TUBE PO PRN ×2 (10:24)
[2018-06-18] MEDS ORDERED: D5% in Water 1,000 ML IVC PRN (10:24)
[2018-06-18] MEDS ORDERED: *HR* Dextrose 50 % in Water (Syg) 50 ML SYRINGE IVP PRN (10:24)
[2018-06-18 12:01] LABS: Magnesium 1.7 mg/dL (1.6-2.6); Phosphorous 4.3 mg/dL (2.7-4.5)
[2018-06-18] MEDS: Ipratropium/Albuterol Neb 3 ML IH SCH ×4 (12:14→23:59)
[2018-06-18] MEDS: Aspirin Enteric Coated 81 MG Tablet PO SCH (12:38)
[2018-06-18] MEDS: Insulin LISPRO 300 UNITS/3 ML VIAL SQ SCH ×2 (12:40→16:51)
[2018-06-18] MEDS ORDERED: Nitroglycerin 0.4 MG TAB.SUBL SL PRN (13:56)
[2018-06-18] MEDS: *HR* Heparin 5,000 UNIT/ML VIAL SQ SCH ×2 (14:44→21:43)
[2018-06-18] MEDS: MethylPREDNISolone 40 MG/ML VIAL IVP SCH ×2 (16:48→23:32)
[2018-06-18] MEDS ORDERED: NON-FORMULARY MEDICATION 1 EACH EACH (Travoprost [Travatan Z] 1 DROP) BOTH EYES SCH (18:00)
--- NOTE | 2018-06-18 20:48 | Electrocardiograph Report ---
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
[2018-06-18] MEDS ORDERED: Insulin LISPRO 300 UNITS/3 ML VIAL SQ SCH (21:00)
[2018-06-18] MEDS: Latanoprost 2.5 ML BOTTLE BOTH EYES SCH (21:42)
[2018-06-18] MEDS: Cyclosporine [Restasis] 1 DROP OP SCH (21:43)
[2018-06-18] MEDS ORDERED: Ibuprofen 400 MG TABLET PO ONE (22:34)
[2018-06-18] MEDS: Budesonide/Formoterol 160/4.5 1 PUFF INH IH SCH (23:59)
[2018-06-19 00:28] LABS: Amphetamine Screen,Urine Negative ng/mL (Cutoff=1000); Barbiturate Screen,Urine Negative ng/mL (Cutoff=200); Benzodiazepines Screen,Urine Negative ng/mL (Cutoff=200); Cannabinoid Screen,Urine Negative ng/mL (Cutoff = 50); Cocaine Screen,Urine Negative ng/mL (Cutoff= 300); Opiate Screen,Urine Negative ng/mL (Cutoff=300); Phencyclidine Screen,Urine Negative ng/mL (Cutoff=25)
[2018-06-19 00:46] LABS: Adenovirus Not Detected (Not Detect); Bordetella Pertussis Not Detected (Not Detect); Chlamydophila pneumoniae Not Detected (Not Detect); Coronavirus 229E Not Detected (Not Detect); Coronavirus HKU1 Not Detected (Not Detect); Coronavirus NL63 Not Detected (Not Detect); Coronavirus OC43 Not Detected (Not Detect); Human Metapneumovirus Not Detected (Not Detect); Human Rhinovirus/Enterovirus Not Detected (Not Detect); Influenza A Subtype 2009 H1 Not Detected (Not Detect); Influenza A Untypeable Not Detected (Not Detect); Influenza B Not Detected (Not Detect); Mycoplasma pneumoniae Not Detected (Not Detect); Parainfluenza Virus 1 Not Detected (Not Detect); Parainfluenza Virus 2 Not Detected (Not Detect); Parainfluenza Virus 3 Not Detected (Not Detect); Parainfluenza Virus 4 Not Detected (Not Detect); Respiratory Syncytial Virus Not Detected (Not Detect)
[2018-06-19 04:43] LABS: Hematocrit 35.9 % (35.3-44.9); Hemoglobin 11.1 g/dL (11.5-15.4); Immature Granulocytes % 0.4 % (0-4); Lymphocytes # 0.5 K/mcL (0.6-4.6); Lymphocytes % 7.5 %; Mean Corpuscular HGB Conc 30.9 g/dL (31.6-35.5); Mean Corpuscular Hemoglobin 26.1 pg (28.0-33.3); Mean Corpuscular Volume 84.5 fL (83.0-100.0); Mean Platelet Volume 9.6 fL (9.4-12.4); Monocytes # 0.1 K/mcL (0.0-1.3); Monocytes % 1.1 %; Neutrophils # 6.5 K/mcL (1.6-8.9); Platelet Count 292 K/mcL (140-400); Red Blood Count 4.25 M/mcL (3.82-4.97); Red Cell Distribution Width 14.3 % (11.5-14.5)
[2018-06-19] MEDS: Ipratropium/Albuterol Neb 3 ML IH SCH ×6 (04:44→23:14)
[2018-06-19 05:01] LABS: BUN/Creatinine Ratio 30 (6-26); Blood Urea Nitrogen 16 mg/dL (8-23); Calcium 9.7 mg/dL (8.6-10.3); Carbon Dioxide 26 mEq/L (23-29); Chloride 105 mEq/L (98-107); Chol/HDL Ratio 2.5 (0-4.9); Glucose 183 mg/dL (70-105); Osmolality,Calculated 296 (280-300); Potassium 3.8 mEq/L (3.5-5.1); Sodium 140 mEq/L (136-145); eGFR For Non-African Americans > 60 (> 60)
[2018-06-19] MEDS: *HR* Heparin 5,000 UNIT/ML VIAL SQ SCH ×3 (05:10→20:28)
[2018-06-19 06:01] LABS: Estimated Average Glucose 183 mg/dl
[2018-06-19] MEDS: Budesonide/Formoterol 160/4.5 1 PUFF INH IH SCH ×2 (07:18→19:34)
[2018-06-19] MEDS: MethylPREDNISolone 40 MG/ML VIAL IVP SCH ×3 (07:46→23:27)
[2018-06-19] MEDS: Furosemide 20 MG TABLET PO SCH (07:47)
[2018-06-19] MEDS: Levofloxacin 750 MG/150 ML 750 MG/150 ML BAG IVPB SCH (07:47)
[2018-06-19] MEDS: Cyanocobalamin (B-12) 1,000 MCG TABLET PO SCH (07:47)
[2018-06-19] MEDS: Loratadine 10 MG TABLET PO SCH (07:47)
[2018-06-19] MEDS: Aspirin Enteric Coated 81 MG Tablet PO SCH (07:48)
[2018-06-19] MEDS: Insulin LISPRO 300 UNITS/3 ML VIAL SQ SCH ×3 (07:56→16:23)
[2018-06-19] MEDS: Cyclosporine [Restasis] 1 DROP OP SCH (08:00)
[2018-06-19] MEDS ORDERED: (Roflumilast [Daliresp] 500 MCG) PO SCH (09:00)
[2018-06-19] MEDS ORDERED: (Umeclidinium Bromide [Incruse Ellipta] 1 PUFF) IH SCH (09:00)
--- NOTE | 2018-06-19 13:20 | Internal Med Progress Note ---
Hospitalist Progress Note - Encounter Date of Encounter: 06/19/18 Time of Encounter: 11:30 - Subjective Interval History: Ms. Leon is a 62 year old female with history of COPD, chronic hypoxic respiratory failure on 2 L home oxygen dependent, chronic diastolic CHF, hyperlipidemia, and hypertension pt presented to the emergency department with complaint of shortness of breath, and cough with expectoration. Patient was admitted in the hospital and started her on IV steroids and bronchodilators. Patient is currently on 3 lit oxygen, able to finish full sentences with few pauses only. Denied any sick contacts. - Exam Vitals: Temp Pulse Resp BP Pulse Ox 99.3 F 110 16 122/63 95 06/19/18 11:31 06/19/18 11:31 06/19/18 11:31 06/19/18 11:31 06/19/18 11:31 Exam: Gen: Alert, awake, Oriented to time,place and person Chest: Diminished breath sounds B/L, moderate to severe wheezing, No crackles, No rales Heart: S1S2+ tachycardia, No murmurs Abd: Soft, NT, BS +, No organomegaly Ext: No edema, pulses are palpable, No calf tenderness Neuro : Benign findings Skin: No rash. - Assessment and Plan (1) Acute exacerbation of chronic obstructive pulmonary disease (COPD) Current Visit: Yes Status: Acute Assessment and Plan: Still having diffuse wheezing Cont IV steroids Reviewed Resp viral panel - negative She does have some purulent bronchitis ( mostly bacterial ) - will continue empirical abx Levaquin Cont Duoneb ROSALIO and O2 does need to stay in the hospital more than 2 midnights, need close monitoring. So will switch her to full admission today. I did review my colleague Dr. Maher H & P including HPI, PMH, PSH,FH,SH and ROS, no changes noticed (2) Acute bronchitis Current Visit: Yes Status: Acute Assessment and Plan: mostly bacterial (3) Sinus tachycardia Current Visit: Yes Status: Acute Assessment and Plan: Due to resp distress cont on tele (4) Type 2 diabetes mellitus Current Visit: No Status: Chronic Assessment and Plan: HbA1C 8.0 ADA diet ISS changed to medium since BS are fairly controlled due to steroids also added levemir 10 U BID (5) DVT prophylaxis Current Visit: No Status: Acute Assessment and Plan: heparin SQ (6) HTN (hypertension) Current Visit: Yes Status: Acute Assessment and Plan: Stable with current home medications (7) HLD (hyperlipidemia) Current Visit: Yes Status: Acute Assessment and Plan: Continue home medications - Time Spent with Patient Total time spent is greater than 50% in coordination of care (as documented) at patient's floor/unit and/or counseling patient: Internal Medicine: Result - Labs CBC & Chem 7: 06/19/18 03:36 06/19/18 03:36 Labs: Short CBC 06/19/18 Range/Units 03:36 WBC 7.1 (4.3-11.1) K/mcL Hgb 11.1 L (11.5-15.4) g/dL Hct 35.9 (35.3-44.9) % Plt Count 292 (140-400) K/mcL Neutrophils # 6.5 (1.6-8.9) K/mcL BMP 06/19/18 03:36 Sodium 140 Potassium 3.8 Chloride 105 Carbon Dioxide 26 BUN 16 Creatinine 0.54 L Glucose 183 H Calcium 9.7 Consult Discharge Plan - Plan Referrals: Ray Garcia MD [Primary Care Provider] - (2) Acute bronchitis Qualifiers: Bronchitis organism: unspecified organism Qualified Code(s): J20.9 - Acute bronchitis, unspecified (4) Type 2 diabetes mellitus Qualifiers: Diabetes mellitus mcc insulin use: without mcc use Diabetes mellitus complication status: with hyperglycemia Qualified Code(s): E11.65 - Type 2 diabetes mellitus with hyperglycemia (6) HTN (hypertension) Qualifiers: Hypertension type: essential hypertension Qualified Code(s): I10 - Essential (primary) hypertension (7) HLD (hyperlipidemia) Qualifiers: Hyperlipidemia type: unspecified Qualified Code(s): E78.5 - Hyperlipidemia, unspecified
[2018-06-19] MEDS ORDERED: Insulin LISPRO 300 UNITS/3 ML VIAL SQ SCH (13:26)
[2018-06-19] MEDS: Latanoprost 2.5 ML BOTTLE BOTH EYES SCH (20:28)
[2018-06-19] MEDS: Insulin DETEMIR 100 UNIT/ML X5UNITS SQ SCH (20:29)
[2018-06-20] MEDS: Ipratropium/Albuterol Neb 3 ML IH SCH ×6 (04:16→23:27)
[2018-06-20 04:39] LABS: Basophils % 0.1 %; Hematocrit 36.5 % (35.3-44.9); Hemoglobin 11.2 g/dL (11.5-15.4); Immature Granulocytes % 0.4 % (0-4); Lymphocytes # 0.6 K/mcL (0.6-4.6); Lymphocytes % 3.7 %; Mean Corpuscular HGB Conc 30.7 g/dL (31.6-35.5); Mean Corpuscular Hemoglobin 25.9 pg (28.0-33.3); Mean Corpuscular Volume 84.5 fL (83.0-100.0); Mean Platelet Volume 9.3 fL (9.4-12.4); Monocytes # 0.3 K/mcL (0.0-1.3); Neutrophils # 14.1 K/mcL (1.6-8.9); Platelet Count 271 K/mcL (140-400); Red Blood Count 4.32 M/mcL (3.82-4.97); Red Cell Distribution Width 14.4 % (11.5-14.5); Segmented Neutrophils % 93.8 %
[2018-06-20 04:57] LABS: BUN/Creatinine Ratio 44 (6-26); Blood Urea Nitrogen 23 mg/dL (8-23); Calcium 9.8 mg/dL (8.6-10.3); Carbon Dioxide 28 mEq/L (23-29); Chloride 105 mEq/L (98-107); Glucose 237 mg/dL (70-105); Osmolality,Calculated 303 (280-300); Potassium 4.1 mEq/L (3.5-5.1); Sodium 141 mEq/L (136-145); eGFR For Non-African Americans > 60 (> 60)
[2018-06-20] MEDS: *HR* Heparin 5,000 UNIT/ML VIAL SQ SCH ×3 (06:24→21:51)
[2018-06-20] MEDS: Levofloxacin 750 MG/150 ML 750 MG/150 ML BAG IVPB SCH (08:43)
[2018-06-20] MEDS: Cyanocobalamin (B-12) 1,000 MCG TABLET PO SCH (08:44)
[2018-06-20] MEDS: Loratadine 10 MG TABLET PO SCH (08:44)
[2018-06-20] MEDS: Aspirin Enteric Coated 81 MG Tablet PO SCH (08:44)
[2018-06-20] MEDS: Furosemide 20 MG TABLET PO SCH (08:44)
[2018-06-20] MEDS: MethylPREDNISolone 40 MG/ML VIAL IVP SCH ×2 (08:44→16:49)
[2018-06-20] MEDS: Budesonide/Formoterol 160/4.5 1 PUFF INH IH SCH ×2 (08:45→19:40)
[2018-06-20] MEDS: Insulin DETEMIR 100 UNIT/ML X5UNITS SQ SCH ×2 (08:45→21:51)
[2018-06-20] MEDS: Insulin LISPRO 300 UNITS/3 ML VIAL SQ SCH ×4 (08:46→21:52)
--- NOTE | 2018-06-20 12:44 | Internal Med Progress Note ---
Hospitalist Progress Note - Encounter Date of Encounter: 06/20/18 Time of Encounter: 12:40 - Subjective Interval History: Ms. Leon is a 62 year old female with history of COPD, CHF, hyperlipidemia, hypertension. She presented to the emergency department with acute shortness of breath. Has history of COPD with multiple readmissions COPD exacerbations. She reports that she has been having a nonproductive hacking coarse cough with increasing shortness of breath 24 hours prior to admission consider getting progressively worse prompting her to seek evaluation in the ED. Associated symptoms or chest tightness and wheezing. Seen and examined at bedside today reports that she is continuing to experience course, non-productive cough and dyspnea greater than baseline. She is continuing to require 3LNC for respiratory support; she is on baseline 2LNC with chronic repiratory failure with hypoxia. - Exam Vitals: Temp Pulse Resp BP Pulse Ox 98.4 F 132 22 107/70 96 06/20/18 11:40 06/20/18 11:40 06/20/18 11:40 06/20/18 11:40 06/20/18 11:40 Exam: Gen: Alert, awake, Oriented to time,place and person Chest: Diminished breath sounds B/L, moderate to severe expiratory wheezing, No crackles, No rales Heart: RRR, S1,S2+ tachycardia, No murmurs Abd: Soft, NT, BS +, No organomegaly Ext: No edema, pulses are palpable, No calf tenderness Neuro : Benign findings Skin: No rash. - Assessment and Plan (1) Acute exacerbation of chronic obstructive pulmonary disease (COPD) Current Visit: Yes Status: Acute Assessment and Plan: Diffuse expiratory wheezing persistent, non-productive cough persistent unable to tolerate 2LNC this morning, increasing flow-rate to 3LNC and respiratory status improved Cont IV steroids Reviewed Resp viral panel - negative She does have some purulent bronchitis- will continue empirical abx Levaquin Cont Duoneb ROSALIO (2) Type 2 diabetes mellitus Current Visit: No Status: Chronic Assessment and Plan: HbA1C 8.0 ADA diet ISS changed to HIGH with hyperglycemia on IV steroid which is contributing to hyperglycemia. also added levemir 10 U BID (3) HTN (hypertension) Current Visit: Yes Status: Acute Assessment and Plan: BP stable (4) HLD (hyperlipidemia) Current Visit: Yes Status: Acute Assessment and Plan: Continue home lipitor (5) Acute bronchitis Current Visit: Yes Status: Acute Assessment and Plan: mostly bacterial continue levaquin (6) Sinus tachycardia Current Visit: Yes Status: Acute Assessment and Plan: persistent 2/2 acute exacerbation of COPD cont on tele (7) DVT prophylaxis Current Visit: No Status: Acute Assessment and Plan: Continue heparin SQ - Time Spent with Patient Total time spent is greater than 50% in coordination of care (as documented) at patient's floor/unit and/or counseling patient: less than 15 minutes Plan of Care Discussed with: patient Internal Medicine: Result - Labs CBC & Chem 7: 06/20/18 04:17 06/20/18 04:17 Labs: Short CBC 06/20/18 Range/Units 04:17 WBC 15.0 H D (4.3-11.1) K/mcL Hgb 11.2 L (11.5-15.4) g/dL Hct 36.5 (35.3-44.9) % Plt Count 271 (140-400) K/mcL Neutrophils # 14.1 H (1.6-8.9) K/mcL BMP 06/20/18 04:17 Sodium 141 Potassium 4.1 Chloride 105 Carbon Dioxide 28 BUN 23 Creatinine 0.52 L Glucose 237 H Calcium 9.8 Consult Discharge Plan - Plan Referrals: Ray Garcia MD [Primary Care Provider] - (2) Type 2 diabetes mellitus Qualifiers: Diabetes mellitus pile header insulin use: without residential use Diabetes mellitus complication status: with hyperglycemia Qualified Code(s): E11.65 - Type 2 diabetes mellitus with hyperglycemia (3) HTN (hypertension) Qualifiers: Hypertension type: essential hypertension Qualified Code(s): I10 - Essential (primary) hypertension (4) HLD (hyperlipidemia) Qualifiers: Hyperlipidemia type: unspecified Qualified Code(s): E78.5 - Hyperlipidemia, unspecified (5) Acute bronchitis Qualifiers: Bronchitis organism: unspecified organism Qualified Code(s): J20.9 - Acute bronchitis, unspecified
[2018-06-20] MEDS ORDERED: 0.9 % Sodium Chloride 500 ML IVC ONE (16:59)
[2018-06-20] MEDS: Latanoprost 2.5 ML BOTTLE BOTH EYES SCH (22:00)
[2018-06-21] MEDS: MethylPREDNISolone 40 MG/ML VIAL IVP SCH ×3 (00:15→16:28)
[2018-06-21 04:24] LABS: Hematocrit 36.6 % (35.3-44.9); Hemoglobin 11.3 g/dL (11.5-15.4); Immature Granulocytes % 0.7 % (0-4); Lymphocytes # 0.6 K/mcL (0.6-4.6); Mean Corpuscular HGB Conc 30.9 g/dL (31.6-35.5); Mean Corpuscular Hemoglobin 26.2 pg (28.0-33.3); Mean Corpuscular Volume 84.9 fL (83.0-100.0); Mean Platelet Volume 9.5 fL (9.4-12.4); Monocytes # 0.3 K/mcL (0.0-1.3); Monocytes % 2.3 %; Neutrophils # 11.4 K/mcL (1.6-8.9); Platelet Count 262 K/mcL (140-400); Red Blood Count 4.31 M/mcL (3.82-4.97); Red Cell Distribution Width 14.4 % (11.5-14.5)
[2018-06-21] MEDS: Ipratropium/Albuterol Neb 3 ML IH SCH ×6 (04:24→23:35)
[2018-06-21 04:47] LABS: BUN/Creatinine Ratio 35 (6-26); Blood Urea Nitrogen 18 mg/dL (8-23); Calcium 9.4 mg/dL (8.6-10.3); Carbon Dioxide 30 mEq/L (23-29); Chloride 105 mEq/L (98-107); Glucose 196 mg/dL (70-105); Osmolality,Calculated 299 (280-300); Potassium 4.1 mEq/L (3.5-5.1); Sodium 141 mEq/L (136-145); eGFR For Non-African Americans > 60 (> 60)
[2018-06-21] MEDS: *HR* Heparin 5,000 UNIT/ML VIAL SQ SCH ×3 (05:48→21:21)
[2018-06-21] MEDS: Budesonide/Formoterol 160/4.5 1 PUFF INH IH SCH ×2 (08:09→20:08)
[2018-06-21] MEDS: Insulin LISPRO 300 UNITS/3 ML VIAL SQ SCH ×4 (08:13→21:21)
[2018-06-21] MEDS: Levofloxacin 750 MG/150 ML 750 MG/150 ML BAG IVPB SCH (08:14)
[2018-06-21] MEDS: Aspirin Enteric Coated 81 MG Tablet PO SCH (08:15)
[2018-06-21] MEDS: Furosemide 20 MG TABLET PO SCH (08:15)
[2018-06-21] MEDS: Loratadine 10 MG TABLET PO SCH (08:16)
[2018-06-21] MEDS: Cyanocobalamin (B-12) 1,000 MCG TABLET PO SCH (08:16)
[2018-06-21] MEDS: Insulin DETEMIR 100 UNIT/ML X5UNITS SQ SCH ×2 (08:45→21:21)
--- NOTE | 2018-06-21 08:56 | Internal Med Progress Note ---
Hospitalist Progress Note - Encounter Date of Encounter: 06/21/18 Time of Encounter: 10:10 - Subjective Interval History: Ms. Leon is a 62 year old female with history of COPD, CHF, hyperlipidemia, hypertension. She presented to the emergency department with acute shortness of breath. Has history of COPD with multiple readmissions COPD exacerbations. She reports that she has been having a nonproductive, hacking coarse cough with increasing shortness of breath 24 hours prior to admission consider getting progressively worse prompting her to seek evaluation in the ED. Associated symptoms are chest tightness and wheezing. She was seen and examined at bedside today. She reports that she has had an increase in wheezing and dyspnea overnight as well as worsening of cough. Today, her cough is productive. I discussed progression to discharge with the patient today who feels that she would not be able to go home today with increasing dyspnea. She feels that if she were to go home today she will be back in the ED this evening. - Exam Vitals: Temp Pulse Resp BP Pulse Ox 98.6 F 90 18 106/54 95 06/21/18 07:51 06/21/18 07:51 06/21/18 08:09 06/21/18 07:51 06/21/18 08:09 Exam: Gen: Alert, awake, Oriented to time,place and person Chest: Diminished breath sounds B/L, moderate to severe course expiratory wheezing, No crackles, No rales. Prolonged expiratory phase and conversational dyspnea, tachypnea Heart: RRR, S1,S2+ tachycardia, No murmurs Abd: Soft, NT, BS +, No organomegaly Ext: No edema, pulses are palpable, No calf tenderness Neuro : Benign findings Skin: No rash. - Assessment and Plan (1) Acute exacerbation of chronic obstructive pulmonary disease (COPD) Current Visit: Yes Status: Acute Assessment and Plan: Diffuse expiratory wheezing persistent, non-productive cough persistent unable to tolerate 2LNC this morning, increasing flow-rate to 3LNC and respiratory status improved Cont IV steroids Reviewed Resp viral panel - negative She does have some purulent bronchitis- will continue empirical abx Levaquin Cont Duoneb [facility] 06/21/18--continues to be in respiratory distress. The patient now has coarse expiratory wheezing scattered throughout bilateral lungs overnight. She remains on 3 L nasal cannula. With increase in wheezing and shortness of breath I will increase the patient's steroids at this time. I do not feel that she is a candidate for discharge with increased shortness of breath at rest or distress. The patient has had multiple admissions for COPD exacerbations. I feel that if she were to discharge this afternoon she may experience respiratory failure while at home. Continue to monitor overnight. (2) Type 2 diabetes mellitus Current Visit: No Status: Chronic Assessment and Plan: HbA1C 8.0 ADA diet ISS changed to HIGH with hyperglycemia on IV steroid which is contributing to hyperglycemia. Increased levemir 15 U BID with persistent hyperglycemia while on steroids Patient does not take Levemir at home. It will need discontinued when steroids are finished (3) HTN (hypertension) Current Visit: Yes Status: Acute Assessment and Plan: BP stable, monitor (4) HLD (hyperlipidemia) Current Visit: Yes Status: Acute Assessment and Plan: Continue home lipitor (5) Acute bronchitis Current Visit: Yes Status: Acute Assessment and Plan: most likely bacterial continue levaquin afebrile, WBC 12.4, hemodynamically stable continues to have dyspnea; proceed with plan as stated above (6) Sinus tachycardia Current Visit: Yes Status: Acute Assessment and Plan: resolved 2/2 acute exacerbation of COPD cont on tele (7) DVT prophylaxis Current Visit: No Status: Acute Assessment and Plan: Continue heparin SQ - Time Spent with Patient Total time spent is greater than 50% in coordination of care (as documented) at patient's floor/unit and/or counseling patient: less than 15 minutes Plan of Care Discussed with: patient Internal Medicine: Result - Labs CBC & Chem 7: 06/21/18 03:47 06/21/18 03:47 Labs: Short CBC 06/21/18 Range/Units 03:47 WBC 12.4 H (4.3-11.1) K/mcL Hgb 11.3 L (11.5-15.4) g/dL Hct 36.6 (35.3-44.9) % Plt Count 262 (140-400) K/mcL Neutrophils # 11.4 H (1.6-8.9) K/mcL BMP 06/21/18 03:47 Sodium 141 Potassium 4.1 Chloride 105 Carbon Dioxide 30 H BUN 18 Creatinine 0.51 L Glucose 196 H Calcium 9.4 Consult Discharge Plan - Plan Referrals: Ray Garcia MD [Primary Care Provider] - (2) Type 2 diabetes mellitus Qualifiers: Diabetes mellitus senior care insulin use: without senior care use Diabetes reymundo itus complication status: with hyperglycemia Qualified Code(s): E11.65 - Type 2 diabetes mellitus with hyperglycemia (3) HTN (hypertension) Qualifiers: Hypertension type: essential hypertension Qualified Code(s): I10 - Essential (primary) hypertension (4) HLD (hyperlipidemia) Qualifiers: Hyperlipidemia type: unspecified Qualified Code(s): E78.5 - Hyperlipidemia, unspecified (5) Acute bronchitis Qualifiers: Bronchitis organism: unspecified organism Qualified Code(s): J20.9 - Acute bronchitis, unspecified
[2018-06-21] MEDS: Fluticasone Propionate Nasal 50 MCG/SPRAY BOTTLE NS SCH (11:31)
[2018-06-21] MEDS: Latanoprost 2.5 ML BOTTLE BOTH EYES SCH (21:21)
[2018-06-22] MEDS: MethylPREDNISolone 40 MG/ML VIAL IVP SCH ×2 (00:34→10:00)
[2018-06-22] MEDS: Ipratropium/Albuterol Neb 3 ML IH SCH ×5 (03:51→20:21)
[2018-06-22 05:10] LABS: Basophils % 0.1 %; Hematocrit 36.7 % (35.3-44.9); Hemoglobin 11.4 g/dL (11.5-15.4); Immature Granulocytes % 0.9 % (0-4); Lymphocytes # 0.6 K/mcL (0.6-4.6); Lymphocytes % 6.3 %; Mean Corpuscular HGB Conc 31.1 g/dL (31.6-35.5); Mean Corpuscular Hemoglobin 26.2 pg (28.0-33.3); Mean Corpuscular Volume 84.4 fL (83.0-100.0); Mean Platelet Volume 10.1 fL (9.4-12.4); Monocytes # 0.4 K/mcL (0.0-1.3); Monocytes % 3.6 %; Platelet Count 257 K/mcL (140-400); Red Blood Count 4.35 M/mcL (3.82-4.97); Red Cell Distribution Width 14.4 % (11.5-14.5); Segmented Neutrophils % 89.1 %
[2018-06-22 05:26] LABS: BUN/Creatinine Ratio 44 (6-26); Blood Urea Nitrogen 26 mg/dL (8-23); Calcium 9.6 mg/dL (8.6-10.3); Carbon Dioxide 29 mEq/L (23-29); Chloride 101 mEq/L (98-107); Glucose 234 mg/dL (70-105); Osmolality,Calculated 300 (280-300); Potassium 4.2 mEq/L (3.5-5.1); Sodium 139 mEq/L (136-145); eGFR For Non-African Americans > 60 (> 60)
[2018-06-22] MEDS: *HR* Heparin 5,000 UNIT/ML VIAL SQ SCH ×3 (05:30→20:31)
--- NOTE | 2018-06-22 06:27 | Electrocardiograph Report ---
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
[2018-06-22] MEDS: Budesonide/Formoterol 160/4.5 1 PUFF INH IH SCH ×2 (08:05→20:21)
--- NOTE | 2018-06-22 09:15 | Internal Med Progress Note ---
Hospitalist Progress Note - Encounter Date of Encounter: 06/22/18 Time of Encounter: 09:14 - Subjective Interval History: Ms. Leon is a 62 year old female with history of COPD, CHF, hyperlipidemia, hypertension. She presented to the emergency department with acute shortness of breath. Has history of COPD with multiple readmissions COPD exacerbations. She reports that she has been having a nonproductive, hacking coarse cough with increasing shortness of breath 24 hours prior to admission consider getting progressively worse prompting her to seek evaluation in the ED. Associated symptoms are chest tightness and wheezing. She was seen and examined at bedside today. Chest tightness, dyspnea and wheezing has decreased overnight with increase in IV steroid dosing. She appears to require less effort today with respirations. - Exam Vitals: Temp Pulse Resp BP Pulse Ox 98.6 F 102 18 129/67 98 06/22/18 07:06 06/22/18 07:06 06/22/18 08:05 06/22/18 07:06 06/22/18 08:05 Exam: Gen: Alert, awake, Oriented to time,place and person Chest: Diminished breath sounds B/L, fine expiratory wheezing. No crackles, or rales. Prolonged expiratory phase. Conversational dyspnea persists. Heart: RRR, S1,S2+ tachycardia, No murmurs Abd: Soft, NT, BS +, No organomegaly Ext: No edema, pulses are palpable, No calf tenderness Neuro : Benign findings Skin: No rash. - Assessment and Plan (1) Acute exacerbation of chronic obstructive pulmonary disease (COPD) Current Visit: Yes Status: Acute Assessment and Plan: Diffuse expiratory wheezing persistent, non-productive cough persistent unable to tolerate 2LNC this morning, increasing flow-rate to 3LNC and respiratory status improved Cont IV steroids Reviewed Resp viral panel - negative She does have some purulent bronchitis- will continue empirical abx Levaquin Cont Duoneb ROSALIO 06/22/18--Respiratory distress improving. Wheezing has improved with increase in IV steroids. Does not appear stable for D/C today. Continue treatment course without changes and monitor overnight. Remains on 3LNC; uses 2LNC for respiratory support at home. Continue to titrate to baseline as tolerated. (2) Type 2 diabetes mellitus Current Visit: No Status: Chronic Assessment and Plan: HbA1C 8.0 ADA diet ISS changed to HIGH with hyperglycemia on IV steroid which is contributing to hyperglycemia. Increased levemir 15 U BID with persistent hyperglycemia while on steroids; glucose improved overnight Patient does not take Levemir at home. It will need discontinued when steroids are finished (3) HTN (hypertension) Current Visit: Yes Status: Acute Assessment and Plan: BP stable, monitor (4) HLD (hyperlipidemia) Current Visit: Yes Status: Acute Assessment and Plan: Continue home lipitor (5) Acute bronchitis Current Visit: Yes Status: Acute Assessment and Plan: treat as above no findings of viral or bacterial cause however, most likely bacterial (6) Sinus tachycardia Current Visit: Yes Status: Resolved (7) DVT prophylaxis Current Visit: No Status: Acute Assessment and Plan: Continue heparin SQ - Time Spent with Patient Total time spent is greater than 50% in coordination of care (as documented) at patient's floor/unit and/or counseling patient: less than 15 minutes Plan of Care Discussed with: patient Internal Medicine: Result - Labs CBC & Chem 7: 06/22/18 03:38 06/22/18 03:38 Labs: Short CBC 06/22/18 Range/Units 03:38 WBC 10.1 (4.3-11.1) K/mcL Hgb 11.4 L (11.5-15.4) g/dL Hct 36.7 (35.3-44.9) % Plt Count 257 (140-400) K/mcL Neutrophils # 9.0 H (1.6-8.9) K/mcL BMP 06/22/18 03:38 Sodium 139 Potassium 4.2 Chloride 101 Carbon Dioxide 29 BUN 26 H Creatinine 0.59 L Glucose 234 H Calcium 9.6 Consult Discharge Plan - Plan Referrals: Ray Garcia MD [Primary Care Provider] - (2) Type 2 diabetes mellitus Qualifiers: Diabetes mellitus long-term insulin use: without long-term use Diabetes mellitus complication status: with hyperglycemia Qualified Code(s): E11.65 - Type 2 diabetes mellitus with hyperglycemia (3) HTN (hypertension) Qualifiers: Hypertension type: essential hypertension Qualified Code(s): I10 - Essential (primary) hypertension (4) HLD (hyperlipidemia) Qualifiers: Hyperlipidemia type: unspecified Qualified Code(s): E78.5 - Hyperlipidemia, unspecified (5) Acute bronchitis Qualifiers: Bronchitis organism: unspecified organism Qualified Code(s): J20.9 - Acute bronchitis, unspecified
[2018-06-22] MEDS: Aspirin Enteric Coated 81 MG Tablet PO SCH (09:50)
[2018-06-22] MEDS: Loratadine 10 MG TABLET PO SCH (09:50)
[2018-06-22] MEDS: Cyanocobalamin (B-12) 1,000 MCG TABLET PO SCH (09:50)
[2018-06-22] MEDS: Furosemide 20 MG TABLET PO SCH (09:50)
[2018-06-22] MEDS: Fluticasone Propionate Nasal 50 MCG/SPRAY BOTTLE NS SCH (09:50)
[2018-06-22] MEDS: Levofloxacin 750 MG/150 ML 750 MG/150 ML BAG IVPB SCH (10:00)
[2018-06-22] MEDS: Insulin DETEMIR 100 UNIT/ML X5UNITS SQ SCH ×2 (10:01→20:32)
[2018-06-22] MEDS: Insulin LISPRO 300 UNITS/3 ML VIAL SQ SCH ×4 (10:01→20:32)
[2018-06-22] MEDS: methylPREDNISolone 125 MG/2 ML VIAL IVP SCH (18:31)
[2018-06-22] MEDS: Latanoprost 2.5 ML BOTTLE BOTH EYES SCH (20:31)
[2018-06-23] MEDS: Ipratropium/Albuterol Neb 3 ML IH SCH ×4 (00:13→11:09)
[2018-06-23] MEDS: *HR* Heparin 5,000 UNIT/ML VIAL SQ SCH (06:06)
[2018-06-23] MEDS: methylPREDNISolone 125 MG/2 ML VIAL IVP SCH (06:06)
[2018-06-23 06:41] LABS: Basophils % 0.1 %; Hematocrit 35.7 % (35.3-44.9); Hemoglobin 11.3 g/dL (11.5-15.4); Immature Granulocytes % 1.4 % (0-4); Lymphocytes # 1.3 K/mcL (0.6-4.6); Lymphocytes % 12.5 %; Mean Corpuscular HGB Conc 31.7 g/dL (31.6-35.5); Mean Corpuscular Hemoglobin 26.3 pg (28.0-33.3); Mean Platelet Volume 9.5 fL (9.4-12.4); Monocytes # 0.7 K/mcL (0.0-1.3); Monocytes % 6.1 %; Neutrophils # 8.5 K/mcL (1.6-8.9); Platelet Count 244 K/mcL (140-400); Red Cell Distribution Width 14.4 % (11.5-14.5); Segmented Neutrophils % 79.9 %
[2018-06-23 06:59] LABS: BUN/Creatinine Ratio 52 (6-26); Blood Urea Nitrogen 28 mg/dL (8-23); Calcium 9.4 mg/dL (8.6-10.3); Carbon Dioxide 30 mEq/L (23-29); Chloride 102 mEq/L (98-107); Glucose 164 mg/dL (70-105); Osmolality,Calculated 299 (280-300); Potassium 3.8 mEq/L (3.5-5.1); Sodium 140 mEq/L (136-145); eGFR For Non-African Americans > 60 (> 60)
[2018-06-23] MEDS: Budesonide/Formoterol 160/4.5 1 PUFF INH IH SCH (07:40)
[2018-06-23 07:59] VITALS: BP 115/70
[2018-06-23] MEDS: Insulin LISPRO 300 UNITS/3 ML VIAL SQ SCH (08:45)
[2018-06-23] MEDS: Aspirin Enteric Coated 81 MG Tablet PO SCH (08:51)
[2018-06-23] MEDS: Cyanocobalamin (B-12) 1,000 MCG TABLET PO SCH (08:51)
[2018-06-23] MEDS: Loratadine 10 MG TABLET PO SCH (08:51)
[2018-06-23] MEDS: Furosemide 20 MG TABLET PO SCH (08:51)
[2018-06-23] MEDS ORDERED: levoFLOXacin 750 MG TABLET PO SCH (09:00)
[2018-06-23] MEDS: Insulin DETEMIR 100 UNIT/ML X5UNITS SQ SCH (09:04)
[2018-06-23] MEDS: Fluticasone Propionate Nasal 50 MCG/SPRAY BOTTLE NS SCH (09:04)
--- NOTE | 2018-06-23 09:58 | Discharge Summary ---
- NOTES TO OUTPATIENT PROVIDER Notes to Outpatient Provider: Adnmitted for COPD excerbation -steroid taper Orders not resulted at time of discharge: Pending orders 06/23/18 09:25 EKG [ECG 12 lead ECG] [ECG] Routine Date of Encounter: 06/23/18 Time of Encounter: 09:49 - Discharge Diagnosis (1) Type 2 diabetes mellitus Priority: Secondary Status: Chronic Qualifiers: Diabetes mellitus longterm insulin use: without longterm use Diabetes mellitus complication status: with hyperglycemia Qualified Code(s): E11.65 - Type 2 diabetes mellitus with hyperglycemia (2) Acute exacerbation of chronic obstructive pulmonary disease (COPD) Priority: Primary Status: Acute (3) HTN (hypertension) Priority: Primary Status: Acute Qualifiers: Hypertension type: essential hypertension Qualified Code(s): I10 - Essential (primary) hypertension (4) HLD (hyperlipidemia) Priority: Secondary Status: Acute Qualifiers: Hyperlipidemia type: unspecified Qualified Code(s): E78.5 - Hyperlipidemia, unspecified (5) Acute bronchitis Priority: Secondary Status: Acute Qualifiers: Bronchitis organism: unspecified organism Qualified Code(s): J20.9 - Acute bronchitis, unspecified (6) Sinus tachycardia Priority: Secondary Status: Resolved Hospital course: Ms. Leon is a 62 year old female Past medical history of COPD oxygen dependent 1-2 l at home CHF hyperlipidemia hypertension presented to emergency department with acute shortness of breath. She has had multiple readmissions for COPD exacerbations in the past. She also had a nonproductive cough and wheezing. She was admitted for COPD exacerbation and bronchitis She was given IV steroids as well as Levaquin and breathing treatments. Her respiratory status improved and she is returned to her baseline utilizing 2-2 L of oxygen wheezing has improved we will discharge patient on a long steroid taper as well as 3 more days of Levaquin to complete a seven-day course. Advised patient to follow-up with primary care provider as well as system analyst since these providers know her best and can adjust medications accordingly. Patient does have home oxygen as well as home health aides yocasta ruelas she is hemodynamically stable at this time and is ready for discharge. Discharge discussed with: patient - Time Spent with Patient Total time spent providing and/or coordinating discharge services: - Discharge Medications Prescriptions: levoFLOXacin [Levaquin] 750 mg PO DAILY #3 tablet predniSONE [PredniSONE] 10 mg PO DAILY #30 tablet Home Medications: Albuterol Sulfate [Proair Hfa] 2 puff IH Q4H PRN 07/14/16 [History] Atorvastatin Calcium [Lipitor] 80 mg PO QAM 07/14/16 [History] Sertraline [Zoloft] 50 mg PO DAILY 07/15/16 [History] Aspirin Enteric Coated [Aspirin EC] 81 mg PO DAILY 10/22/16 [History] Cyanocobalamin (Vitamin B-12) [Vitamin B-12] 1,000 mcg PO DAILY 10/22/16 [History] Cyclosporine [Restasis] 1 drop BOTH EYES BID 10/22/16 [History] Ferrous Sulfate 325 mg PO DAILY 10/22/16 [History] Furosemide [Lasix] 20 mg PO DAILY 10/22/16 [History] Travoprost [Travatan Z] 1 drop BOTH EYES QPM 10/22/16 [History] metFORMIN [Glucophage] 500 mg PO BIDWM #60 tablet 10/27/16 [Rx] Ergocalciferol (VITAMIN D2) [Vitamin D2] 50,000 unit PO MO 04/01/17 [History] Umeclidinium [place] [Incruse Ellipta] 1 puff IH DAILY 04/01/17 [History] Nitroglycerin 0.4 mg PO Q5M PRN 07/08/17 [History] Ezetimibe [Zetia] 10 mg PO DAILY 09/01/17 [History] Albuterol Neb [Proventil Neb] 2.5 mg IH TID PRN 09/22/17 [History] Oxygen 2.5 l NS AD 09/22/17 [History] Loratadine [Claritin] 10 mg PO DAILY #30 tablet 09/26/17 [Rx] Dapagliflozin Propanediol [Farxiga] 5 mg PO DAILY 12/19/17 [History] Budesonide/Formoterol 160/4.5 [Symbicort 160/4.5] 2 puff IH BIDR 01/19/18 [History] GuaiFENesin ER [Mucinex] 600 mg PO BID PRN tbbp.12hr 03/28/18 [Rx] Latanoprost [Xalatan] 1 drop BOTH EYES HS 06/18/18 [History] Omeprazole [PriLOSEC] 40 mg PO DAILY 06/18/18 [History] Potassium Chloride [K-Tab ER] 20 meq PO DAILY 06/18/18 [History] Roflumilast [Daliresp] 500 mcg PO DAILY 06/18/18 [History] levoFLOXacin [Levaquin] 750 mg PO DAILY #3 tablet 06/23/18 [Rx] predniSONE [PredniSONE] 10 mg PO DAILY #30 tablet 06/23/18 [Rx] Allergies/Adverse Reactions: Allergy/AdvReac Type Severity Reaction Status Date / Time acetaminophen [From Vicodin] AdvReac Headache Verified 01/19/18 17:41 hydrocodone [From Vicodin] AdvReac Headache Verified 01/19/18 17:41 methylprednisolone AdvReac Itching Verified 01/19/18 17:41 [From Solu-Medrol] Date of admission: 06/19/18 12:06 Primary care physician: Ray Garcia Consults: 06/18/18 10:00 Consult to Nurse Navigator [CONS] Routine Comment: Discharging clinician: Yolanda Cochran Anticipated date of discharge: 06/23/18 - Constitutional Vitals: Temp Pulse Resp BP Pulse Ox 97.7 F 105 19 115/70 98 06/23/18 07:55 06/23/18 07:55 06/23/18 07:55 06/23/18 07:55 06/23/18 07:55 General appearance: Present: A&O X 3 Exam: Gen: Alert, awake, Oriented to time,place and person Chest: Diminished breath sounds B/L, fine expiratory wheezing. No crackles, or rales. Prolonged expiratory phase. . Heart: RRR, S1,S2+ tachycardia, No murmurs Abd: Soft, NT, BS +, No organomegaly Ext: No edema, pulses are palpable, No calf tenderness Neuro : Benign findings Skin: No rash. - Head Head exam: Present: atraumatic, normocephalic - Eye Eye exam: Present: PERRL, conjuntiva pink, sclera anicteric Pupils: Present: PERRL - Neck Neck exam general surgery: Present: supple, trachea midline. Absent: lymphadenopathy - Respiratory Respiratory exam: Present: wheezes. Absent: accessory muscle use, rales, rhonchi - Cardiovascular Cardiovascular exam: Present: RRR, +S1, +S2. Absent: diastolic murmur, gallop, rubs, systolic murmur - GI/Abdominal GI/Abdominal exam: Present: normal bowel sounds, soft, no peritoneal signs. Absent: distended, tenderness - Extremities Exam Extremities exam: Present: warm, radial pulses palpable and symmetrical. Absent: calf tenderness, cyanotic, pedal edema - Neurological Exam Neurological exam: Present: CN II-XII intact, oriented X3, no focal deficits. Absent: pronater drift, facial droop, speech deficit - Skin Skin exam: Present: dry, intact - Patient Status Disposition: Home, Self-Care Condition: Good Functional capacity at discharge: independent ambulation Overall status at discharge: patient is back to baseline - Discharge Instructions Instructions: Chronic Obstructive Pulmonary Disease (DC) Follow Up With: Ray Garcia MD [Primary Care Provider] - 07/02/18 10:15 am - Diet and Activity Activity: resume usual activities as tolerated, wear oxygen at all times Diet: other
[2018-06-23] MEDS ORDERED: Pneumococcal 23 Valent Vaccine 25 MCG/0.5 ML VIAL IM ONE (11:35)
== END 2018-06-23 12:43 | disposition home or self-care (01) | DRG 191 ==
LOC: 3BNU 08:05 → EMEROOARM 08:05 → 3BNU 10:36
PROVIDERS: ADMIT Internal Medicine; ATTEND Internal Medicine

== ENCOUNTER 2018-12-19 06:29 | Inpatient (IN) ==
[2018-12-19] MEDS ORDERED: predniSONE 20 MG TABLET PO ONE (06:39)
[2018-12-19] MEDS ORDERED: Ipratropium/Albuterol Neb 3 ML IH ONE (06:39)
[2018-12-19] MEDS ORDERED: Ondansetron 4 MG/2 ML VIAL IVP ONE (06:42)
[2018-12-19] MEDS ORDERED: methylPREDNISolone 125 MG/2 ML VIAL IVP ONE (06:43)
--- NOTE | 2018-12-19 06:46 | Emergency Department Note ---
START Narrative - START START: 63-year-old female with cough, shortness of breath, sputum production, posttussive emesis for one day this emergency department tachycardic, hypoxic, with wheezes on lung exam. We are obtaining a chest x-ray, CBC, BMP, blood culture, lactic acid, ECG, troponin. We will give steroids as well as DuoNeb's here in the emergency department. Patient's care to be continued from the day team doctor as this is signout time. <Alejo Dejesus - Last Filed: 12/21/18 00:17> - START START: Dr. Zuñiga start note: Patient with cough and shortness of breath onset this morning. Tachycardia without hypoxia. Normal mentation. No pain. No fever. Patient is dependent on home oxygen. Require imaging blood work and reevaluation. Patient will be evaluated and disposition by the day shift attending physician who enters shift approximately 15 minutes after our evaluation of the patient initially. <Josh Zuñiga - Last Filed: 12/21/18 22:09>
[2018-12-19 07:15] LABS: Basophils # 0.1 K/mcL (0.0-0.2); Basophils % 0.6 %; Eosinophils # 0.5 K/mcL (0.0-0.6); Eosinophils % 6.4 %; Hematocrit 39.9 % (35.3-44.9); Hemoglobin 12.5 g/dL (11.5-15.4); Immature Granulocytes % 0.4 % (0-4); Lymphocytes # 1.8 K/mcL (0.6-4.6); Lymphocytes % 22.4 %; Mean Corpuscular HGB Conc 31.3 g/dL (31.6-35.5); Mean Corpuscular Hemoglobin 27.6 pg (28.0-33.3); Mean Corpuscular Volume 88.1 fL (83.0-100.0); Mean Platelet Volume 9.2 fL (9.4-12.4); Monocytes # 0.6 K/mcL (0.0-1.3); Monocytes % 7.4 %; Neutrophils # 5.2 K/mcL (1.6-8.9); Platelet Count 269 K/mcL (140-400); Red Blood Count 4.53 M/mcL (3.82-4.97); Segmented Neutrophils % 62.8 %
[2018-12-19 07:36] LABS: BUN/Creatinine Ratio 24 (6-26); Blood Urea Nitrogen 18 mg/dL (8-23); Calcium 9.7 mg/dL (8.6-10.3); Carbon Dioxide 29 mEq/L (23-29); Chloride 101 mEq/L (98-107); Glucose 130 mg/dL (70-105); Osmolality,Calculated 294 (280-300); Potassium 3.9 mEq/L (3.5-5.1); Sodium 140 mEq/L (136-145); Troponin I < 0.03 ng/mL (< 0.04); eGFR For Non-African Americans > 60 (> 60)
--- NOTE | 2018-12-19 09:31 | Emergency Department Note ---
Disposition Clinical Impression: COPD with acute exacerbation Disposition: Admitted As Inpatient Condition: Fair Referrals: Ray Garcia MD [Primary Care Provider] - Forms: ED Satisfaction Letter Time of Disposition: 09:51 SOB HPI - General Chief Complaint: ED Shortness of Breath/Dyspnea Stated Complaint: ROBER Time Seen by Provider: 12/19/18 06:32 Source: patient, EMS Mode of arrival: EMS Limitations: no limitations Nursing Notes Reviewed: Yes Vital Signs Reviewed: Yes - History of Present Illness Pt was signed out to me by Dr. Alejo Dejesus. Pt was recently admitted in October for shortness of breath and required ICU level care with intubation. She is currently on prn oxygen at home and CPAP at night. She felt acutely short of breath with diaphoresis this morning and called squad. She received 3 duonebs and is saturating at 95-96% on 3L NC 02. She remains short of breath with diffuse wheezing after treatment and will require admission for further workup and treatment. Pt denies current smoking, states she quit in 1993. - Related Data Home Medications Medication Instructions Recorded Confirmed Albuterol Sulfate [Proair Hfa] 2 puff IH Q4H PRN 07/14/16 10/03/18 Atorvastatin Calcium [Lipitor] 80 mg PO QAM 07/14/16 10/03/18 Sertraline [Zoloft] 50 mg PO DAILY 07/15/16 10/03/18 Aspirin Enteric Coated [Aspirin EC] 81 mg PO DAILY 10/22/16 10/03/18 Cyanocobalamin (Vitamin B-12) 1,000 mcg PO DAILY 10/22/16 10/03/18 [Vitamin B-12] Cyclosporine [Restasis] 1 drop BOTH EYES BID 10/22/16 10/03/18 Ferrous Sulfate 325 mg PO DAILY 10/22/16 10/03/18 Furosemide [Lasix] 20 mg PO DAILY 10/22/16 10/03/18 Umeclidinium [place] [Incruse 1 puff IH DAILY 04/01/17 10/03/18 Ellipta] Nitroglycerin 0.4 mg PO Q5M PRN 07/08/17 10/03/18 Ezetimibe [Zetia] 10 mg PO DAILY 09/01/17 10/03/18 Albuterol Neb [Proventil Neb] 2.5 mg IH TID PRN 09/22/17 10/03/18 Oxygen 2.5 l NS AD 09/22/17 10/03/18 Dapagliflozin Propanediol [Farxiga] 5 mg PO DAILY 12/19/17 10/03/18 Budesonide/Formoterol 160/4.5 2 puff IH BIDR 01/19/18 10/03/18 [Symbicort 160/4.5] Latanoprost [Xalatan] 1 drop BOTH EYES HS 06/18/18 10/03/18 Omeprazole [PriLOSEC] 40 mg PO DAILY 06/18/18 10/03/18 Potassium Chloride [K-Tab ER] 20 meq PO DAILY 06/18/18 10/03/18 Roflumilast [Daliresp] 500 mcg PO DAILY 06/18/18 10/03/18 Cholecalciferol (D-3) [Vitamin D] 5,000 unit PO DAILY 10/03/18 10/03/18 Fluticasone Propionate Nasal 1 spr NS DAILY PRN 10/03/18 10/03/18 [Flonase] Glimepiride [Amaryl] 1 mg PO DAILY 10/03/18 10/03/18 Previous Rx's Medication Instructions Recorded metFORMIN [Glucophage] 500 mg PO BIDWM #60 tablet 10/27/16 Loratadine [Claritin] 10 mg PO DAILY #30 tablet 09/26/17 GuaiFENesin ER [Mucinex] 600 mg PO BID PRN tbbp.12hr 03/28/18 Patient Taking Own Medication 1 each OP BID each 10/07/18 Allergies Allergy/AdvReac Type Severity Reaction Status Date / Time acetaminophen [From Vicodin] AdvReac Headache Verified 10/02/18 05:37 hydrocodone [From Vicodin] AdvReac Headache Verified 10/02/18 05:37 Review of Systems: All systems ED: reviewed and negative except as stated. Constitutional: Denies: fever, Reports: chills ENT ED: Denies: ear pain, throat pain Cardiovascular: Denies: chest pain, palpitations Respiratory: Reports: cough with increased production of sputum, dyspnea Gastrointestinal: Denies: abdominal pain, nausea, vomiting, diarrhea, const ipation Genitourinary: Denies: urgency, dysuria, frequency Musculoskeletal: Denies: back pain, neck pain Integumentary: Denies: rash, abrasion Neurological: Denies: headache, weakness, numbness, paresthesias Psychiatric: Denies: anxiety, depression Endocrine: Denies: fatigue, heat or cold intolerance Hematological/Lymphatic: Denies: easy bleeding, easy bruising Allergic/Immunologic: Denies: facial swelling, urticaria Past Medical History - Past Medical History Attestation: Yes The following information was validated with the patient. 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 Appears sick but not toxic. Well developed, well nourished. Head: atraumatic, normocephalic. ENT: No conjunctival injection, no scleral icterus. PERRLA. EOMI. Oropharynx non- erythematous. mucous membranes tacky. Neuro: No focal deficits, no speech deficit, no facial droop, mentating well. BUE/BLE Str 5/5. Pulm: Diffuse wheezing in all lung [place] after administration of 3 duonebs and steroids. Cardio: Tachycardia. Chest not tender to palpation. Abd: Soft, non-distended. Normoactive bowel sounds. Non-tender to palpation. No guarding. Non rigid. Extremities: Radial pulses 2+ ling, No LE edema. No cyanosis, clubbing. Skin: warm, dry, intact. No rashes. Psych: Appropriate mood and affect. Answers questions appropriately. Cooperative with exam. - General Limitations: no limitations General appearance: alert Course Course Narrative: Workup ordered by equestrian trainer team included: CXR, EKG, CBC, BMP. She was given 3 duonebs and 125mg Solu-medrol. Initially prednisone 60mg was ordered, but this was discontinued in favor of solu-medrol. Pt continued to have diffuse wheezes in all lung lawson. Vital Signs Temperature 98.0 F 12/19/18 06:34 Pulse Rate 124 12/19/18 06:34 Respiratory Rate 20 12/19/18 06:34 Blood Pressure 99/73 12/19/18 06:34 O2 Sat by Pulse Oximetry 95 12/19/18 06:34 Temperature 98.0 F 12/19/18 06:34 Pulse Rate 108 12/19/18 08:25 Respiratory Rate 20 12/19/18 08:25 Blood Pressure 107/60 12/19/18 08:25 O2 Sat by Pulse Oximetry 98 12/19/18 08:25 Oxygen Delivery Oxygen Delivery Nasal Cannula Shortness of Breath/Dyspnea - MDM Narrative Medical decision making narrative: Pt remained SOB with diffuse wheezes in all lung lawson after 125 solu-medrol, 3 duonebs. She did not feel comfortable being discharged home as she lives alone and is having difficulty caring for self at this time. She was admitted to hospitalist, Dr. Langston, who agreed to accept her to their service. Patient was given an opportunity to ask questions at bedside and all of their concerns were addressed. Patient verbalized understanding and agreement with plan of care. Pt remained stable while in the department. - Medical Records Medical records reviewed: Yes I reviewed the patient's medical records. - Lab Data Lab results reviewed: Yes I reviewed the patient's lab results. Result diagrams: 12/19/18 07:04 12/19/18 07:04 Lab Results 12/19/18 12/19/18 12/19/18 Range/Units 07:01 07:04 07:04 WBC 8.2 (4.3-11.1) K/mcL RBC 4.53 (3.82-4.97) M/mcL Hgb 12.5 (11.5-15.4) g/dL Hct 39.9 (35.3-44.9) % MCV 88.1 (83.0-100.0) fL MCH 27.6 L (28.0-33.3) pg MCHC 31.3 L (31.6-35.5) g/dL RDW 15.0 H (11.5-14.5) % Plt Count 269 (140-400) K/mcL MPV 9.2 L (9.4-12.4) fL Immature Gran % 0.4 (0-4) % Seg Neutrophils % 62.8 % Lymphocytes % 22.4 % Monocytes % 7.4 % Eosinophils % 6.4 % Basophils % 0.6 % Neutrophils # 5.2 (1.6-8.9) K/mcL Lymphocytes # 1.8 (0.6-4.6) K/mcL Monocytes # 0.6 (0.0-1.3) K/mcL Eosinophils # 0.5 (0.0-0.6) K/mcL Basophils # 0.1 (0.0-0.2) K/mcL Sodium 140 (136-145) mEq/L Potassium 3.9 (3.5-5.1) mEq/L Chloride 101 (98-107) mEq/L Carbon Dioxide 29 (23-29) mEq/L BUN 18 (8-23) mg/dL Creatinine 0.75 (0.60-1.20) mg/dL Est GFR ( Amer) > 60 (> 60) Est GFR (Non-Af Amer) > 60 (> 60) BUN/Creatinine Ratio 24 (6-26) Glucose 130 H (70-105) mg/dL Calculated Osmolality 294 (280-300) Lactic Acid 1.3 (0.5-2.2) mmol/L Calcium 9.7 (8.6-10.3) mg/dL Troponin I < 0.03 (< 0.04) ng/mL - Radiology Data Radiology results reviewed: Yes I reviewed the patient's radiology results. Chest X-Ray 12/19/18 06:38 IMPRESSION: No acute cardiopulmonary disease. D/ / Cain Varner MD / Cain Varner MD Interpreting Provider: Cain Varner MD - EKG Data EKG attestation: Yes I reviewed and interpreted this EKG. EKG results narrative: HR 109, rhythm sinus tachycardia, axis normal. [place] 122, QRS 88, QTc 468. No evidence of ST elevation or depression.
[2018-12-19] MEDS ORDERED: Naloxone 0.4 MG/ML INJ IVP PRN (09:47)
[2018-12-19] MEDS ORDERED: Nitroglycerin 0.4 MG TAB.SUBL SL PRN (09:54)
[2018-12-19] MEDS ORDERED: D5% in Water 1,000 ML IVC PRN (09:57)
[2018-12-19] MEDS ORDERED: Dextrose Gel 15 GM/37.5 ML TUBE PO PRN ×2 (09:57)
[2018-12-19] MEDS ORDERED: *HR* Dextrose 50 % in Water (Syg) 50 ML SYRINGE IVP PRN (09:57)
[2018-12-19] MEDS ORDERED: Furosemide 20 MG TABLET PO SCH (10:00)
--- NOTE | 2018-12-19 10:00 | Internal Med History&Physical ---
Date of Encounter: 12/19/18 Time of Encounter: 09:56 Internal Medicine - H&P: HPI Chief complaint: SOB Admitted From: Home Plans for Post Hospital Care: Home History of present illness: Ms. Leon is a 63 year old female with chronic respiratory failure with multiple admission last one in sep, COPD on home oxygen, HTN, DM, CHFpEF, GERD who presented to the emergency department with SOB. as per patient she is prescribed oxygen PRn but has been becoming increasingly dependent on her oxygen for the past week and has used it everyday. she has become so dependednt that she has purchased a longer cannula so she can use it while walking short distance around her house. on the morning of admission her SOB exacerbated to the point that her oxygen nor her nebulizers were alleviating her SOB so she decided to come to The ED. in addition to SOB she also complains of wheezing, she also has a dry cough and denies sputum production. her SOB worsens on ambulation and oxygen and rest along with nebulizers alleviate her symptoms. she reports compliance to her home inhalers and CPAP machine at nights. she denies fever, chills, sick contacts, prolonged immobilization, previous DVt or PE, calf tenderness, calf swelling, orthopnea, chest pain or palpitations. while in the ED she was treated with steroids oxygen along with nebs with improvement of her SOB. Past Med Surg Social Fam HX - Past Medical History Medical history: CHF, COPD, diabetes, GERD, glaucoma, hyperlipidemia, hypertension Additional medical history: angina, anemia 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: anxiety, depression - Past Surgical History Surgical History: cataract, hysterectomy Additional surgical history: polyp removal. cataract extractions - Social History Smoking Status: Former smoker Smokeless Tobacco Status: No Alcohol use: none Drug use: none - Family History Mother Adopted: No Living Status: Hx Family Cardiac Disorders: No Hx Family Respiratory Disorders: No Hx Family Cancer: Yes (Pancreatic cancer) Hx Family GI Disorders: No Hx Family Endocrine Disorder: No Hx Family Neuromuscular Disorders: No Hx Family Neurologic Disorders: No Hx Family HEENT Disorders: No Hx Family Autoimmune Disorders: No Father Living Status: Hx Family Cardiac Disorders: Yes Hx Family Respiratory Disorders: Yes Hx Family Cancer: Yes Hx Family GI Disorders: No Hx Family Endocrine Disorder: Yes (Diabetes) Hx Family Neuromuscular Disorders: No Hx Family Neurologic Disorders: No Hx Family HEENT Disorders: No Hx Family Autoimmune Disorders: No Internal Medicine - H&P: Meds Albuterol Sulfate [Proair Hfa] 2 puff IH Q4H PRN 07/14/16 [History] Atorvastatin Calcium [Lipitor] 80 mg PO QAM 07/14/16 [History] Sertraline [Zoloft] 50 mg PO DAILY 07/15/16 [History] Aspirin Enteric Coated [Aspirin EC] 81 mg PO DAILY 10/22/16 [History] Cyanocobalamin (Vitamin B-12) [Vitamin B-12] 1,000 mcg PO DAILY 10/22/16 [History] Cyclosporine [Restasis] 1 drop BOTH EYES BID 10/22/16 [History] Ferrous Sulfate 325 mg PO DAILY 10/22/16 [History] Furosemide [Lasix] 20 mg PO DAILY 10/22/16 [History] metFORMIN [Glucophage] 500 mg PO BIDWM #60 tablet 10/27/16 [Rx] Umeclidinium Bradley [Incruse Ellipta] 1 puff IH DAILY 04/01/17 [History] Nitroglycerin 0.4 mg PO Q5M PRN 07/08/17 [History] Ezetimibe [Zetia] 10 mg PO DAILY 09/01/17 [History] Albuterol Neb [Proventil Neb] 2.5 mg IH TID PRN 09/22/17 [History] Oxygen 2.5 l NS AD 09/22/17 [History] Loratadine [Claritin] 10 mg PO DAILY #30 tablet 09/26/17 [Rx] Dapagliflozin Propanediol [Farxiga] 5 mg PO DAILY 12/19/17 [History] Budesonide/Formoterol 160/4.5 [Symbicort 160/4.5] 2 puff IH BIDR 01/19/18 [History] GuaiFENesin ER [Mucinex] 600 mg PO BID PRN tbbp.12hr 03/28/18 [Rx] Latanoprost [Xalatan] 1 drop BOTH EYES HS 06/18/18 [History] Omeprazole [PriLOSEC] 40 mg PO DAILY 06/18/18 [History] Potassium Chloride [K-Tab ER] 20 meq PO DAILY 06/18/18 [History] Roflumilast [Daliresp] 500 mcg PO DAILY 06/18/18 [History] Cholecalciferol (D-3) [Vitamin D] 5,000 unit PO DAILY 10/03/18 [History] Fluticasone Propionate Nasal [Flonase] 1 spr NS DAILY PRN 10/03/18 [History] Glimepiride [Amaryl] 1 mg PO DAILY 10/03/18 [History] Patient Taking Own Medication 1 each OP BID each 10/07/18 [Rx] Allergy/AdvReac Type Severity Reaction Status Date / Time acetaminophen [From Vicodin] AdvReac Headache Verified 10/02/18 05:37 hydrocodone [From Vicodin] AdvReac Headache Verified 10/02/18 05:37 All Systems PM: A 10-system review of systems was performed and is negative for pertinent findings except as documented above in the HPI. - Constitutional Vitals: Temp Pulse Resp BP Pulse Ox 98.0 F 80 21 204/77 100 12/19/18 06:34 12/19/18 09:54 12/19/18 09:54 12/19/18 09:54 12/19/18 09:54 Exam: General: Patient is alert, oriented, no acute distress, speaks in 5 word sentences Head: atraumatic, normocephalic, Eye: normal appearance, PERRL, no scleral icterus, no conjunctival injection ENT: mucous membranes moist, normal external ear exam Neck: normal inspection, trachea midline, full ROM, Chest: normal inspection, symmetric chest rise Respiratory: tachypnic, decreased breath sounds Blt, diffuse wheezing in marium anterior and posterior chest Cardiovascular: tachycardic s1 and s2 No clicks, rubs, gallops, or murmors. Abdomen: Bowel sounds present normoactive x-4 quadrants. Abdomen is soft, nondistended. no Epigastric tenderness. No guarding or rebound. No organomegaly noted, obese musculoskeletal: Spontaneously moving all extremities. no edema, no calf tenderness Skin: warm, dry, intact. Neuro: Alert and oriented x 3 no focal deficit Psych: Patient's affect is normal Internal Med - H&P Results - Labs CBC & Chem 7: 12/19/18 07:04 12/19/18 07:04 Labs: Short CBC 12/19/18 Range/Units 07:04 WBC 8.2 (4.3-11.1) K/mcL Hgb 12.5 (11.5-15.4) g/dL Hct 39.9 (35.3-44.9) % Plt Count 269 (140-400) K/mcL Neutrophils # 5.2 (1.6-8.9) K/mcL BMP 12/19/18 07:04 Sodium 140 Potassium 3.9 Chloride 101 Carbon Dioxide 29 BUN 18 Creatinine 0.75 Glucose 130 H Calcium 9.7 Cardiac Enzymes 12/19/18 Range/Units 07:04 Troponin I < 0.03 (< 0.04) ng/mL - EKG Data -: EKG Interpreted by Myself (admission EKG pending ) - Impressions ITS Impressions Chest X-Ray 12/19/18 06:38 IMPRESSION: No acute cardiopulmonary disease. D/ / Cain Varner MD / Cain Varner MD Interpreting Provider: Cain Varner MD - Assessment and Plan (1) Acute exacerbation of chronic obstructive airways disease Current Visit: No Status: Acute Assessment and plan: Continue with Solu-Medrol 40 mg every 8 hours Started on ceftriaxone and azithromycin de-escalate as per cultures Urine antigens Sputum cultures Oxygen via nasal cannula to keep saturations above 90%avoid over oxygenation as she has chronic respiratory failure If she becomes tachypneic, or develops altered mental status obtain an ABG stat BiPAP when necessary for Respiratory distress Continue with home inhalers Duo nebs every 4 hours respiratory viral panel admission EKG CXR IMPRESSION: No acute cardiopulmonary disease. (2) Acute and chronic respiratory failure ([id number]) Current Visit: No Status: Chronic Assessment and plan: Secondary to above BiPAP when necessary if she develops respiratory distress Hold off any sedatives and anxiolytics Continuous pulse ox (3) Diabetes Current Visit: Yes Status: Acute Assessment and plan: started on insulin sliding scale Adjust as per fingersticks Last A1c in June 2018 was 8- follow A1c in a.m. Qualifiers: Diabetes mellitus type: type 2 Diabetes mellitus jail insulin use: without jail use Diabetes mellitus complication status: without complication Qualified Code(s): E11.9 - Type 2 diabetes mellitus without complications (4) HTN (hypertension) Current Visit: No Status: Chronic Assessment and plan: Continue with home medications Adjust as per blood pressure Qualifiers: Hypertension type: essential hypertension Qualified Code(s): I10 - Essential (primary) hypertension (5) Former heavy tobacco smoker Current Visit: No Status: Chronic Assessment and plan: She reports that she quit smoking more than 20 years ago (6) GERD (gastroesophageal reflux disease) Current Visit: No Status: Chronic Assessment and plan: Continue with home medications Qualifiers: Esophagitis presence: esophagitis presence not specified Qualified Code(s): K21.9 - Gastro-esophageal reflux disease without esophagitis (7) DVT prophylaxis Current Visit: No Status: Acute Assessment and plan: heparin sc - Time Spent With Patient Total time spent is greater than 50% in coordination of care (as documented) at patient's floor/unit and/or counseling patient:
[2018-12-19] MEDS: Insulin LISPRO 300 UNITS/3 ML VIAL SQ SCH ×3 (11:41→20:36)
[2018-12-19] MEDS: Aspirin Enteric Coated 81 MG Tablet PO SCH (11:46)
[2018-12-19] MEDS: Azithromycin 500 MG in D5% in Water 250 ML IVPB SCH (11:46)
[2018-12-19] MEDS: cefTRIAXone 2,000 MG in Water for inj. (sterile) 20 ML 20 ML IVP SCH (11:46)
[2018-12-19] MEDS: Ipratropium/Albuterol Neb 3 ML IH SCH ×2 (12:00→16:02)
[2018-12-19] MEDS: Budesonide/Formoterol 160/4.5 1 PUFF INH IH SCH ×2 (12:00→22:02)
[2018-12-19 12:47] LABS: Adenovirus Not Detected (Not Detect); Bordetella Pertussis Not Detected (Not Detect); Chlamydophila pneumoniae Not Detected (Not Detect); Coronavirus 229E Not Detected (Not Detect); Coronavirus HKU1 Not Detected (Not Detect); Coronavirus NL63 Not Detected (Not Detect); Coronavirus OC43 Not Detected (Not Detect); Human Metapneumovirus Not Detected (Not Detect); Human Rhinovirus/Enterovirus Not Detected (Not Detect); Influenza A Subtype 2009 H1 Not Detected (Not Detect); Influenza A Untypeable Not Detected (Not Detect); Influenza B Not Detected (Not Detect); Mycoplasma pneumoniae Not Detected (Not Detect); Parainfluenza Virus 1 Not Detected (Not Detect); Parainfluenza Virus 2 Not Detected (Not Detect); Parainfluenza Virus 3 Not Detected (Not Detect); Parainfluenza Virus 4 Not Detected (Not Detect); Respiratory Syncytial Virus Not Detected (Not Detect)
[2018-12-19] MEDS: *HR* Heparin 5,000 UNIT/ML VIAL SQ SCH ×2 (13:50→20:36)
[2018-12-19] MEDS: MethylPREDNISolone 40 MG/ML VIAL IVP SCH (16:41)
[2018-12-19] MEDS ORDERED: Levalbuterol Neb 1.25 MG/3 ML IH SCH (18:30)
[2018-12-19] MEDS: Levalbuterol Neb 1.25 MG/3 ML IH PRN (22:03)
[2018-12-20] MEDS: MethylPREDNISolone 40 MG/ML VIAL IVP SCH ×3 (00:12→18:37)
[2018-12-20 01:43] LABS: Basophils % 0.1 %; Hematocrit 38.6 % (35.3-44.9); Hemoglobin 12.2 g/dL (11.5-15.4); Immature Granulocytes % 0.8 % (0-4); Lymphocytes # 0.5 K/mcL (0.6-4.6); Lymphocytes % 6.3 %; Mean Corpuscular HGB Conc 31.6 g/dL (31.6-35.5); Mean Corpuscular Hemoglobin 27.6 pg (28.0-33.3); Mean Corpuscular Volume 87.3 fL (83.0-100.0); Mean Platelet Volume 9.1 fL (9.4-12.4); Monocytes # 0.2 K/mcL (0.0-1.3); Monocytes % 2.1 %; Neutrophils # 7.2 K/mcL (1.6-8.9); Platelet Count 271 K/mcL (140-400); Red Blood Count 4.42 M/mcL (3.82-4.97); Red Cell Distribution Width 14.8 % (11.5-14.5); Segmented Neutrophils % 90.7 %
[2018-12-20 02:02] LABS: BUN/Creatinine Ratio 27 (6-26); Blood Urea Nitrogen 21 mg/dL (8-23); Calcium 9.8 mg/dL (8.6-10.3); Carbon Dioxide 26 mEq/L (23-29); Chloride 102 mEq/L (98-107); Glucose 216 mg/dL (70-105); Osmolality,Calculated 294 (280-300); Potassium 4.1 mEq/L (3.5-5.1); Sodium 137 mEq/L (136-145); eGFR For Non-African Americans > 60 (> 60)
[2018-12-20] MEDS: Levalbuterol Neb 1.25 MG/3 ML IH PRN (03:42)
[2018-12-20] MEDS: Ipratropium Neb 0.5 MG NEBULIZER IH SCH ×2 (03:47→07:33)
[2018-12-20] MEDS ORDERED: Ipratropium Neb 0.5 MG NEBULIZER IH PRN (04:15)
[2018-12-20] MEDS: *HR* Heparin 5,000 UNIT/ML VIAL SQ SCH ×3 (05:58→21:29)
[2018-12-20] MEDS: Cyanocobalamin (B-12) 1,000 MCG TABLET PO SCH (07:56)
[2018-12-20] MEDS: Furosemide 20 MG TABLET PO SCH (07:56)
[2018-12-20] MEDS: Cholecalciferol (D-3) 1,000 UNIT TABLET PO SCH (07:56)
[2018-12-20] MEDS: Aspirin Enteric Coated 81 MG Tablet PO SCH (07:56)
[2018-12-20] MEDS: Insulin LISPRO 300 UNITS/3 ML VIAL SQ SCH ×4 (07:57→21:28)
--- NOTE | 2018-12-20 09:53 | Internal Med Progress Note ---
Hospitalist Progress Note - Encounter Date of Encounter: 12/20/18 Time of Encounter: 09:51 - Subjective Interval History: Patient is seen and examined in the room. She is very anxious with dyspnea on exertion and a dry cough. - Exam Vitals: Temp Pulse Resp BP Pulse Ox 97.9 F 101 17 118/66 94 12/20/18 07:23 12/20/18 07:23 12/20/18 07:23 12/20/18 07:23 12/20/18 07:23 Exam: General: Patient is alert, oriented, no acute distress, speaks in 5 word sentences Head: atraumatic, normocephalic, Eye: normal appearance, PERRL, no scleral icterus, no conjunctival injection ENT: mucous membranes moist, normal external ear exam Neck: normal inspection, trachea midline, full ROM, Chest: normal inspection, symmetric chest rise Respiratory: tachypnic, decreased breath sounds Blt, diffuse wheezing in marium anterior and posterior chest Cardiovascular: tachycardic s1 and s2 No clicks, rubs, gallops, or murmors. Abdomen: Bowel sounds present normoactive x-4 quadrants. Abdomen is soft, nondistended. no Epigastric tenderness. No guarding or rebound. No organomegaly noted, obese musculoskeletal: Spontaneously moving all extremities. no edema, no calf tenderness Skin: warm, dry, intact. Neuro: Alert and oriented x 3 no focal deficit Psych: Patient's affect is normal - Assessment and Plan (1) Acute and chronic respiratory failure ([id number]) Current Visit: No Status: Chronic Assessment and Plan: Secondary to above BiPAP when necessary if she develops respiratory distress Hold off any sedatives and anxiolytics Continuous pulse ox (2) Acute exacerbation of chronic obstructive airways disease Current Visit: Yes Status: Acute Assessment and Plan: Continue with Solu-Medrol 40 mg every 8 hours Started on ceftriaxone and azithromycin de-escalate as per cultures Urine antigens Sputum cultures Oxygen via nasal cannula to keep saturations above 90%avoid over oxygenation as she has chronic respiratory failure If she becomes tachypneic, or develops altered mental status obtain an ABG stat BiPAP when necessary for Respiratory distress Continue with home inhalers Duo nebs every 4 hours respiratory viral panel admission EKG CXR IMPRESSION: No acute cardiopulmonary disease. (3) Former heavy tobacco smoker Current Visit: No Status: Chronic Assessment and Plan: She reports that she quit smoking more than 20 years ago (4) GERD (gastroesophageal reflux disease) Current Visit: No Status: Chronic Assessment and Plan: Continue with home medications (5) HTN (hypertension) Current Visit: No Status: Chronic Assessment and Plan: Continue with home medications Adjust as per blood pressure (6) Diabetes Current Visit: No Status: Chronic Assessment and Plan: started on insulin sliding scale Adjust as per fingersticks Last A1c in June 2018 was 8- follow A1c in a.m. (7) DVT prophylaxis Current Visit: No Status: Acute Assessment and Plan: heparin sc - Time Spent with Patient Total time spent is greater than 50% in coordination of care (as documented) at patient's floor/unit and/or counseling patient: Greater than 35 minutes Plan of Care Discussed with: patient Internal Medicine: Result - Labs CBC & Chem 7: 12/20/18 01:20 12/20/18 01:20 Labs: Short CBC 12/20/18 Range/Units 01:20 WBC 7.9 (4.3-11.1) K/mcL Hgb 12.2 (11.5-15.4) g/dL Hct 38.6 (35.3-44.9) % Plt Count 271 (140-400) K/mcL Neutrophils # 7.2 (1.6-8.9) K/mcL BMP 12/20/18 01:20 Sodium 137 Potassium 4.1 Chloride 102 Carbon Dioxide 26 BUN 21 Creatinine 0.78 Glucose 216 H Calcium 9.8 Consult Discharge Plan - Plan Referrals: Ray Garcia MD [Primary Care Provider] - (4) GERD (gastroesophageal reflux disease) Qualifiers: Esophagitis presence: esophagitis presence not specified Qualified Code(s): K21.9 - Gastro-esophageal reflux disease without esophagitis (5) HTN (hypertension) Qualifiers: Hypertension type: essential hypertension Qualified Code(s): I10 - Essential (primary) hypertension (6) Diabetes Qualifiers: Diabetes mellitus type: type 2 Diabetes mellitus terminal superintendent insulin use: without alf use Diabetes mellitus complication status: without complication Qualified Code(s): E11.9 - Type 2 diabetes mellitus without complications
[2018-12-20] MEDS: Budesonide/Formoterol 160/4.5 1 PUFF INH IH SCH ×2 (10:20→21:42)
[2018-12-20] MEDS: Levalbuterol Neb 1.25 MG/3 ML IH SCH ×3 (10:20→21:42)
[2018-12-20] MEDS: Tiotropium 18 MCG inhalation IH SCH (10:21)
[2018-12-20] MEDS: cefTRIAXone 2,000 MG in Water for inj. (sterile) 20 ML 20 ML IVP SCH (12:07)
[2018-12-20] MEDS: Azithromycin 500 MG in D5% in Water 250 ML IVPB SCH (12:07)
[2018-12-21] MEDS: MethylPREDNISolone 40 MG/ML VIAL IVP SCH ×3 (00:14→17:19)
[2018-12-21] MEDS: Levalbuterol Neb 1.25 MG/3 ML IH SCH ×4 (03:19→21:36)
[2018-12-21 05:33] LABS: Hematocrit 39.4 % (35.3-44.9); Hemoglobin 12.2 g/dL (11.5-15.4); Immature Granulocytes % 0.7 % (0-4); Lymphocytes # 0.5 K/mcL (0.6-4.6); Lymphocytes % 3.3 %; Mean Corpuscular Hemoglobin 27.4 pg (28.0-33.3); Mean Corpuscular Volume 88.3 fL (83.0-100.0); Mean Platelet Volume 9.9 fL (9.4-12.4); Monocytes % 1.7 %; Neutrophils # 13.6 K/mcL (1.6-8.9); Platelet Count 293 K/mcL (140-400); Red Blood Count 4.46 M/mcL (3.82-4.97); Red Cell Distribution Width 15.2 % (11.5-14.5); Segmented Neutrophils % 94.3 %
[2018-12-21 05:34] LABS: Monocytes # 0.2 K/mcL (0.0-1.3)
[2018-12-21] MEDS: *HR* Heparin 5,000 UNIT/ML VIAL SQ SCH ×3 (05:38→20:25)
[2018-12-21 05:50] LABS: BUN/Creatinine Ratio 39 (6-26); Blood Urea Nitrogen 24 mg/dL (8-23); Calcium 9.7 mg/dL (8.6-10.3); Carbon Dioxide 29 mEq/L (23-29); Chloride 101 mEq/L (98-107); Glucose 198 mg/dL (70-105); Osmolality,Calculated 298 (280-300); Potassium 4.2 mEq/L (3.5-5.1); Sodium 139 mEq/L (136-145); eGFR For Non-African Americans > 60 (> 60)
[2018-12-21] MEDS: Insulin LISPRO 300 UNITS/3 ML VIAL SQ SCH ×4 (07:46→20:22)
[2018-12-21] MEDS: Roflumilast [Daliresp] 500 MCG PO SCH (08:50)
[2018-12-21] MEDS: Cholecalciferol (D-3) 1,000 UNIT TABLET PO SCH (08:50)
[2018-12-21] MEDS: Cyanocobalamin (B-12) 1,000 MCG TABLET PO SCH (08:50)
[2018-12-21] MEDS: Furosemide 20 MG TABLET PO SCH (08:50)
[2018-12-21] MEDS: Doxycycline 100 MG CAPSULE PO SCH ×2 (08:50→19:47)
[2018-12-21] MEDS: Aspirin Enteric Coated 81 MG Tablet PO SCH (08:50)
--- NOTE | 2018-12-21 09:33 | Internal Med Progress Note ---
Hospitalist Progress Note - Encounter Date of Encounter: 12/21/18 Time of Encounter: 09:31 - Subjective Interval History: Patient is seen and examined in room. She reported dry cough and dyspnea on exertion are improving. She has no chest pain, palpitation, no lightheadedness. Overnight, she has no fever, chills, or night sweats. - Exam Vitals: Temp Pulse Resp BP Pulse Ox 97.9 F 95 18 121/60 94 12/21/18 07:35 12/21/18 07:35 12/21/18 07:35 12/21/18 07:35 12/21/18 07:35 Exam: General: Patient is alert, oriented, no acute distress, speaks in 5 word sentences Head: atraumatic, normocephalic, Eye: normal appearance, PERRL, no scleral icterus, no conjunctival injection ENT: mucous membranes moist, normal external ear exam Neck: normal inspection, trachea midline, full ROM, Chest: normal inspection, symmetric chest rise Respiratory: tachypnic, decreased breath sounds Blt, diffuse wheezing in marium anterior and posterior chest Cardiovascular: tachycardic s1 and s2 No clicks, rubs, gallops, or murmors. Abdomen: Bowel sounds present normoactive x-4 quadrants. Abdomen is soft, nondistended. no Epigastric tenderness. No guarding or rebound. No organomegaly noted, obese musculoskeletal: Spontaneously moving all extremities. no edema, no calf tenderness Skin: warm, dry, intact. Neuro: Alert and oriented x 3 no focal deficit Psych: Patient's affect is normal - Assessment and Plan (1) Acute exacerbation of chronic obstructive airways disease Current Visit: Yes Status: Acute Assessment and Plan: 12/20 Continue with Solu-Medrol 40 mg every 8 hours Started on ceftriaxone and azithromycin de-escalate as per cultures Urine antigens Sputum cultures Oxygen via nasal cannula to keep saturations above 90%avoid over oxygenation as she has chronic respiratory failure If she becomes tachypneic, or develops altered mental status obtain an ABG stat BiPAP when necessary for Respiratory distress Continue with home inhalers Duo nebs every 4 hours respiratory viral panel admission EKG CXR IMPRESSION: No acute cardiopulmonary disease. 12/21 Symptoms are improving. Blood and sputum cultures have no growth so far for 2 days. Urinary antigens for Legionella and the pneumococcus were negative. Chest x-ray has no signs of pneumonia. Acute bronchitis was suspected. IV azithromycin and Rocephin have been given for 2 days, change IV antibiotics to oral doxycycline today. Continue IV steroids and bronchodilators. Encouraged ambulation, will do a 6 minute walking study prior to discharge. (2) Acute and chronic respiratory failure ([id number]) Current Visit: Yes Status: Acute Assessment and Plan: Secondary to above BiPAP when necessary if she develops respiratory distress Hold off any sedatives and anxiolytics Continuous pulse ox. Continue current treatment as outlined as above. (3) Former heavy tobacco smoker Current Visit: No Status: Chronic Assessment and Plan: She reports that she quit smoking more than 20 years ago (4) GERD (gastroesophageal reflux disease) Current Visit: No Status: Chronic Assessment and Plan: Continue with home medications. (5) HTN (hypertension) Current Visit: No Status: Chronic Assessment and Plan: Continue with home medications Adjust as per blood pressure (6) Diabetes Current Visit: No Status: Chronic Assessment and Plan: started on insulin sliding scale Adjust as per fingersticks Last A1c in June 2018 was 8. (7) DVT prophylaxis Current Visit: No Status: Acute Assessment and Plan: heparin sc - Time Spent with Patient Total time spent is greater than 50% in coordination of care (as documented) at patient's floor/unit and/or counseling patient: Greater than 35 minutes Plan of Care Discussed with: patient Internal Medicine: Result - Labs CBC & Chem 7: 12/21/18 04:43 12/21/18 04:43 Labs: Short CBC 12/21/18 Range/Units 04:43 WBC 14.4 H D (4.3-11.1) K/mcL Hgb 12.2 (11.5-15.4) g/dL Hct 39.4 (35.3-44.9) % Plt Count 293 (140-400) K/mcL Neutrophils # 13.6 H (1.6-8.9) K/mcL BMP 12/21/18 04:43 Sodium 139 Potassium 4.2 Chloride 101 Carbon Dioxide 29 BUN 24 H Creatinine 0.61 Glucose 198 H Calcium 9.7 Consult Discharge Plan - Plan Referrals: Ray Garcia MD [Primary Care Provider] - __ (4) GERD (gastroesophageal reflux disease) Qualifiers: Esophagitis presence: esophagitis presence not specified Qualified Code(s): K21.9 - Gastro-esophageal reflux disease without esophagitis (5) HTN (hypertension) Qualifiers: Hypertension type: essential hypertension Qualified Code(s): I10 - Essential (primary) hypertension (6) Diabetes Qualifiers: Diabetes mellitus type: type 2 Diabetes mellitus half-way insulin use: without half-way use Diabetes mellitus complication status: without complication Qualified Code(s): E11.9 - Type 2 diabetes mellitus without complications
[2018-12-21] MEDS: Tiotropium 18 MCG inhalation IH SCH (09:49)
[2018-12-21] MEDS: Budesonide/Formoterol 160/4.5 1 PUFF INH IH SCH ×2 (09:50→21:42)
--- NOTE | 2018-12-21 15:40 | Electrocardiograph Report ---
[facility] Test Date: 2018-12-19 Pat Name: Geri Leon Department: [id number] Room: 3B24 Gender: F It Security Administrator: : [id number] Requested By: Alejo Dejesus Order Number: [id number] Reading MD: Jasbir Jordan Measurements Intervals [place] Rate: 109 P: 69 AL: 122 QRS: 61 QRSD: 88 T: 63 QT: 347 QTc: 468 Interpretive Statements Sinus tachycardia Abnormal R-wave progression, early transition Electronically Signed On 12-21-2018 15:39:17 EDT by Jasbir Jordan
[2018-12-21] MEDS ORDERED: Ibuprofen 600 MG TABLET PO PRN (18:38)
[2018-12-21] MEDS: Latanoprost 2.5 ML BOTTLE BOTH EYES SCH (19:47)
[2018-12-21] MEDS: Ammonium Lactate 30 APPL/225 GM BOTTLE TP SCH (19:48)
[2018-12-21] MEDS: Fluticasone Propionate Nasal 50 MCG/SPRAY BOTTLE NS SCH (19:48)
[2018-12-21] MEDS: (Cyclosporine [Restasis] 1 DROP) OP SCH (19:54)
[2018-12-22] MEDS: MethylPREDNISolone 40 MG/ML VIAL IVP SCH ×3 (00:44→15:27)
[2018-12-22] MEDS: Levalbuterol Neb 1.25 MG/3 ML IH SCH ×4 (03:43→22:17)
[2018-12-22] MEDS: *HR* Heparin 5,000 UNIT/ML VIAL SQ SCH ×3 (05:52→21:15)
[2018-12-22] MEDS: Insulin LISPRO 300 UNITS/3 ML VIAL SQ SCH ×4 (08:37→21:57)
[2018-12-22] MEDS: Ammonium Lactate 30 APPL/225 GM BOTTLE TP SCH ×2 (08:42→21:15)
[2018-12-22] MEDS: Cholecalciferol (D-3) 1,000 UNIT TABLET PO SCH (08:43)
[2018-12-22] MEDS: Doxycycline 100 MG CAPSULE PO SCH ×2 (08:43→21:15)
[2018-12-22] MEDS: Loratadine 10 MG TABLET PO SCH (08:44)
[2018-12-22] MEDS: Aspirin Enteric Coated 81 MG Tablet PO SCH (08:44)
[2018-12-22] MEDS: Cyanocobalamin (B-12) 1,000 MCG TABLET PO SCH (08:44)
[2018-12-22] MEDS: Furosemide 20 MG TABLET PO SCH (08:44)
[2018-12-22] MEDS: Fluticasone Propionate Nasal 50 MCG/SPRAY BOTTLE NS SCH ×2 (08:48→21:15)
[2018-12-22] MEDS: (Cyclosporine [Restasis] 1 DROP) OP SCH ×2 (08:49→21:17)
[2018-12-22] MEDS: (Terbinafine Hcl 250 MG) PO SCH (08:49)
[2018-12-22] MEDS: Roflumilast [Daliresp] 500 MCG PO SCH (08:51)
--- NOTE | 2018-12-22 10:54 | Internal Med Progress Note ---
Hospitalist Progress Note - Encounter Date of Encounter: 12/22/18 Time of Encounter: 10:49 - Subjective Interval History: Patient seen and examined in the room. She reported improved dyspnea on exertion, however, she still having lingering persistent dry cough. Overnight, she denies fever, chills, or night sweats. - Exam Vitals: Temp Pulse Resp BP Pulse Ox 98.3 F 83 20 108/68 94 12/22/18 07:25 12/22/18 07:25 12/22/18 07:25 12/22/18 07:25 12/22/18 07:25 Exam: General: Patient is alert, oriented, no acute distress, speaks in 5 word sentences Head: atraumatic, normocephalic, Eye: normal appearance, PERRL, no scleral icterus, no conjunctival injection ENT: mucous membranes moist, normal external ear exam Neck: normal inspection, trachea midline, full ROM, Chest: normal inspection, symmetric chest rise Respiratory: tachypnic, decreased breath sounds Blt, diffuse wheezing in marium anterior and posterior chest Cardiovascular: tachycardic s1 and s2 No clicks, rubs, gallops, or murmors. Abdomen: Bowel sounds present normoactive x-4 quadrants. Abdomen is soft, nondistended. no Epigastric tenderness. No guarding or rebound. No orga nomegaly noted, obese musculoskeletal: Spontaneously moving all extremities. no edema, no calf tende rness Skin: warm, dry, intact. Neuro: Alert and oriented x 3 no focal deficit Psych: Patient's affect is normal - Assessment and Plan (1) Acute exacerbation of chronic obstructive airways disease Current Visit: Yes Status: Acute Assessment and Plan: 12/20 Continue with Solu-Medrol 40 mg every 8 hours Started on ceftriaxone and azithromycin de-escalate as per cultures Urine antigens Sputum cultures Oxygen via nasal cannula to keep saturations above 90%avoid over oxygenation as she has chronic respiratory failure If she becomes tachypneic, or develops altered mental status obtain an ABG stat BiPAP when necessary for Respiratory distress Continue with home inhalers Duo nebs every 4 hours respiratory viral panel admission EKG CXR IMPRESSION: No acute cardiopulmonary disease. 12/21 Symptoms are improving. Blood and sputum cultures have no growth so far for 2 days. Urinary antigens for Legionella and the pneumococcus were negative. Chest x-ray has no signs of pneumonia. Acute bronchitis was suspected. IV azithromycin and Rocephin have been given for 2 days, change IV antibiotics to oral doxycycline today. Continue IV steroids and bronchodilators. Encouraged ambulation, will do a 6 minute walking study prior to discharge. 12/22 Overall symptoms have improved, however, patient still complains of persistent dry cough. Patient still requires IV steroids and frequent aerosol treatment. Anticipated discharge in the morning. (2) Acute and chronic respiratory failure ([id number]) Current Visit: Yes Status: Acute Assessment and Plan: Secondary to above BiPAP when necessary if she develops respiratory distress Hold off any sedatives and anxiolytics Continuous pulse ox. Continue current treatment as outlined as above. (3) Former heavy tobacco smoker Current Visit: No Status: Chronic Assessment and Plan: She reports that she quit smoking more than 20 years ago (4) GERD (gastroesophageal reflux disease) Current Visit: No Status: Chronic Assessment and Plan: Continue with home medications. (5) HTN (hypertension) Current Visit: No Status: Chronic Assessment and Plan: Continue with home medications Adjust as per blood pressure (6) Diabetes Current Visit: No Status: Chronic Assessment and Plan: started on insulin sliding scale Adjust as per fingersticks Last A1c in June 2018 was 8. (7) DVT prophylaxis Current Visit: No Status: Acute Assessment and Plan: heparin sc - Time Spent with Patient Total time spent is greater than 50% in coordination of care (as documented) at patient's floor/unit and/or counseling patient: Greater than 35 minutes Plan of Care Discussed with: patient Internal Medicine: Result - Labs CBC & Chem 7: 12/21/18 04:43 12/21/18 04:43 Consult Discharge Plan - Plan Referrals: Ray Garcia MD [Primary Care Provider] - 12/28/18 3:15 pm (4) GERD (gastroesophageal reflux disease) Qualifiers: Esophagitis presence: esophagitis presence not specified Qualified Code(s): K21.9 - Gastro-esophageal reflux disease without esophagitis (5) HTN (hypertension) Qualifiers: Hypertension type: essential hypertension Qualified Code(s): I10 - Essential (primary) hypertension (6) Diabetes Qualifiers: Diabetes mellitus type: type 2 Diabetes mellitus mcfp insulin use: without mcfp use Diabetes mellitus complication status: without complication Qualified Code(s): E11.9 - Type 2 diabetes mellitus without complications
[2018-12-22] MEDS: Budesonide/Formoterol 160/4.5 1 PUFF INH IH SCH ×2 (10:58→22:17)
[2018-12-22] MEDS: Tiotropium 18 MCG inhalation IH SCH (10:59)
[2018-12-22] MEDS: Latanoprost 2.5 ML BOTTLE BOTH EYES SCH (21:16)
[2018-12-23] MEDS: MethylPREDNISolone 40 MG/ML VIAL IVP SCH ×2 (00:10→17:58)
[2018-12-23] MEDS: Levalbuterol Neb 1.25 MG/3 ML IH SCH ×4 (03:33→22:13)
[2018-12-23 05:04] LABS: Hematocrit 38.8 % (35.3-44.9); Mean Corpuscular HGB Conc 30.9 g/dL (31.6-35.5); Mean Corpuscular Volume 87.2 fL (83.0-100.0); Mean Platelet Volume 9.4 fL (9.4-12.4); Platelet Count 278 K/mcL (140-400); Red Blood Count 4.45 M/mcL (3.82-4.97); Red Cell Distribution Width 14.9 % (11.5-14.5)
[2018-12-23 05:20] LABS: BUN/Creatinine Ratio 54 (6-26); Blood Urea Nitrogen 29 mg/dL (8-23); Calcium 9.6 mg/dL (8.6-10.3); Carbon Dioxide 28 mEq/L (23-29); Chloride 104 mEq/L (98-107); Glucose 240 mg/dL (70-105); Osmolality,Calculated 296 (280-300); Potassium 4.1 mEq/L (3.5-5.1); Sodium 136 mEq/L (136-145); eGFR For Non-African Americans > 60 (> 60)
[2018-12-23] MEDS: *HR* Heparin 5,000 UNIT/ML VIAL SQ SCH ×3 (05:42→21:06)
[2018-12-23] MEDS: Tiotropium 18 MCG inhalation IH SCH (08:58)
[2018-12-23] MEDS: Budesonide/Formoterol 160/4.5 1 PUFF INH IH SCH ×2 (08:58→20:43)
--- NOTE | 2018-12-23 10:04 | Internal Med Progress Note ---
Hospitalist Progress Note - Encounter Date of Encounter: 12/23/18 Time of Encounter: 10:01 - Subjective Interval History: Patient was seen and examined at bedside. Currently patient appears to be in mild respiratory distress -unable to speak due to moist coughing with faint expiratory wheeze. Respiratory therapy was notified to give breathing treatment now. We will continue to monitor at this time - Exam Vitals: Temp Pulse Resp BP Pulse Ox 97.8 F 86 18 127/81 97 12/23/18 08:08 12/23/18 08:08 12/23/18 09:01 12/23/18 08:08 12/23/18 09:01 Exam: General: Patient is alert, oriented, mild respiratory distress, speaks in 5 word sentences Head: atraumatic, normocephalic, Eye: normal appearance, PERRL, no scleral icterus, no conjunctival injection ENT: mucous membranes moist, normal external ear exam Neck: normal inspection, trachea midline, full ROM, Chest: normal inspection, symmetric chest rise Respiratory: decreased breath sounds Blt, expiratory wheezing in anterior and posterior chest -moist productive cough with clear sputum Cardiovascular: tachycardic s1 and s2 No clicks, rubs, gallops, or murmors. Abdomen: Bowel sounds present normoactive x-4 quadrants. Abdomen is soft, nondistended. no Epigastric tenderness. No guarding or rebound. No organomegaly noted, obese musculoskeletal: Spontaneously moving all extremities. no edema, no calf tenderness Skin: warm, dry, intact. Neuro: Alert and oriented x 3 no focal deficit Psych: Patient's affect is normal - Assessment and Plan (1) GERD (gastroesophageal reflux disease) Current Visit: No Status: Chronic Assessment and Plan: Continue with home medications. (2) Acute exacerbation of chronic obstructive airways disease Current Visit: Yes Status: Acute Assessment and Plan: 12/20 Continue with Solu-Medrol 40 mg every 8 hours Started on ceftriaxone and azithromycin de-escalate as per cultures Urine antigens Sputum cultures Oxygen via nasal cannula to keep saturations above 90%avoid over oxygenation as she has chronic respiratory failure If she becomes tachypneic, or develops altered mental status obtain an ABG stat BiPAP when necessary for Respiratory distress Continue with home inhalers Duo nebs every 4 hours respiratory viral panel admission EKG CXR IMPRESSION: No acute cardiopulmonary disease. 12/21 Symptoms are improving. Blood and sputum cultures have no growth so far for 2 days. Urinary antigens for Legionella and the pneumococcus were negative. Chest x-ray has no signs of pneumonia. Acute bronchitis was suspected. IV azithromycin and Rocephin have been given for 2 days, change IV antibiotics to oral doxycycline today. Continue IV steroids and bronchodilators. Encouraged ambulation, will do a 6 minute walking study prior to discharge. 12/22 Overall symptoms have improved, however, patient still complains of persistent dry cough. Patient still requires IV steroids and frequent aerosol treatment. Anticipated discharge in the morning. 12/23 Upon assessment patient appears to be in mild respiratory distress with moist productive cough and clear sputum We will continue with IV steroids and respiratory therapy was called immediately for review treatment which we will continue as needed and scheduled. Continue with oxygen support (3) DVT prophylaxis Current Visit: No Status: Acute Assessment and Plan: heparin sc (4) Former heavy tobacco smoker Current Visit: No Status: Chronic Assessment and Plan: She reports that she quit smoking more than 20 years ago (5) Acute and chronic respiratory failure ([id number]) Current Visit: Yes Status: Acute Assessment and Plan: Secondary to above BiPAP when necessary if she develops respiratory distress Hold off any sedatives and anxiolytics Continuous pulse ox. Continue current treatment as outlined as above. (6) HTN (hypertension) Current Visit: No Status: Chronic Assessment and Plan: Continue with home medications Adjust as per blood pressure (7) Diabetes Current Visit: No Status: Chronic Assessment and Plan: started on insulin sliding scale will need to increase medium scale due to steroid use Adjust as per fingersticks Last A1c in June 2018 was 8. - Time Spent with Patient Total time spent is greater than 50% in coordination of care (as documented) at patient's floor/unit and/or counseling patient: Internal Medicine: Result - Labs CBC & Chem 7: 12/23/18 04:12 12/23/18 04:12 Labs: Short CBC 12/23/18 Range/Units 04:12 WBC 11.1 (4.3-11.1) K/mcL Hgb 12.0 (11.5-15.4) g/dL Hct 38.8 (35.3-44.9) % Plt Count 278 (140-400) K/mcL BMP 12/23/18 04:12 Sodium 136 Potassium 4.1 Chloride 104 Carbon Dioxide 28 BUN 29 H Creatinine 0.54 L Glucose 240 H Calcium 9.6 Consult Discharge Plan - Plan Referrals: Ray Garcia MD [Primary Care Provider] - 12/28/18 3:15 pm (1) GERD (gastroesophageal reflux disease) Qualifiers: Esophagitis presence: esophagitis presence not specified Qualified Code(s): K21.9 - Gastro-esophageal reflux disease without esophagitis (6) HTN (hypertension) Qualifiers: Hypertension type: essential hypertension Qualified Code(s): I10 - Essential (primary) hypertension (7) Diabetes Qualifiers: Diabetes mellitus type: type 2 Diabetes mellitus intermediate insulin use: without manager terminal use Diabetes mellitus complication status: without complication Qualified Code(s): E11.9 - Type 2 diabetes mellitus without complications
[2018-12-23] MEDS: Fluticasone Propionate Nasal 50 MCG/SPRAY BOTTLE NS SCH ×2 (10:16→21:07)
[2018-12-23] MEDS: (Cyclosporine [Restasis] 1 DROP) OP SCH ×3 (10:16→21:09)
[2018-12-23] MEDS: Roflumilast [Daliresp] 500 MCG PO SCH ×2 (10:17→10:58)
[2018-12-23] MEDS: Aspirin Enteric Coated 81 MG Tablet PO SCH (10:26)
[2018-12-23] MEDS: Doxycycline 100 MG CAPSULE PO SCH ×2 (10:27→21:07)
[2018-12-23] MEDS: Cyanocobalamin (B-12) 1,000 MCG TABLET PO SCH (10:27)
[2018-12-23] MEDS: Cholecalciferol (D-3) 1,000 UNIT TABLET PO SCH (10:27)
[2018-12-23] MEDS: Loratadine 10 MG TABLET PO SCH (10:27)
[2018-12-23] MEDS: Furosemide 20 MG TABLET PO SCH (10:27)
[2018-12-23] MEDS: (Terbinafine Hcl 250 MG) PO SCH (10:31)
[2018-12-23] MEDS: Ammonium Lactate 30 APPL/225 GM BOTTLE TP SCH ×2 (10:31→21:07)
[2018-12-23] MEDS: Insulin LISPRO 300 UNITS/3 ML VIAL SQ SCH ×4 (10:35→21:08)
[2018-12-23] MEDS: Ipratropium Neb 0.5 MG NEBULIZER IH PRN ×2 (15:28→20:43)
[2018-12-23] MEDS: Latanoprost 2.5 ML BOTTLE BOTH EYES SCH (21:07)
[2018-12-24 02:29] LABS: Basophils % 0.3 %; Hematocrit 38.5 % (35.3-44.9); Immature Granulocytes % 1.9 % (0-4); Lymphocytes # 0.9 K/mcL (0.6-4.6); Mean Corpuscular HGB Conc 31.2 g/dL (31.6-35.5); Mean Corpuscular Hemoglobin 27.4 pg (28.0-33.3); Mean Corpuscular Volume 87.9 fL (83.0-100.0); Mean Platelet Volume 9.4 fL (9.4-12.4); Monocytes # 0.5 K/mcL (0.0-1.3); Monocytes % 4.4 %; Neutrophils # 8.8 K/mcL (1.6-8.9); Platelet Count 273 K/mcL (140-400); Red Blood Count 4.38 M/mcL (3.82-4.97); Red Cell Distribution Width 14.9 % (11.5-14.5); Segmented Neutrophils % 84.4 %
[2018-12-24 02:49] LABS: BUN/Creatinine Ratio 44 (6-26); Blood Urea Nitrogen 29 mg/dL (8-23); Calcium 9.2 mg/dL (8.6-10.3); Carbon Dioxide 28 mEq/L (23-29); Chloride 101 mEq/L (98-107); Glucose 329 mg/dL (70-105); Osmolality,Calculated 301 (280-300); Potassium 4.3 mEq/L (3.5-5.1); Sodium 136 mEq/L (136-145); eGFR For Non-African Americans > 60 (> 60)
[2018-12-24] MEDS: Levalbuterol Neb 1.25 MG/3 ML IH SCH ×2 (03:05→09:50)
[2018-12-24] MEDS: *HR* Heparin 5,000 UNIT/ML VIAL SQ SCH (06:26)
[2018-12-24] MEDS: MethylPREDNISolone 40 MG/ML VIAL IVP SCH (06:27)
[2018-12-24 06:34] VITALS: BP 121/65
[2018-12-24] MEDS: Furosemide 20 MG TABLET PO SCH (09:05)
[2018-12-24] MEDS: Cyanocobalamin (B-12) 1,000 MCG TABLET PO SCH (09:05)
[2018-12-24] MEDS: Aspirin Enteric Coated 81 MG Tablet PO SCH (09:05)
[2018-12-24] MEDS: Cholecalciferol (D-3) 1,000 UNIT TABLET PO SCH (09:05)
[2018-12-24] MEDS: Doxycycline 100 MG CAPSULE PO SCH (09:05)
[2018-12-24] MEDS: Fluticasone Propionate Nasal 50 MCG/SPRAY BOTTLE NS SCH (09:06)
[2018-12-24] MEDS: (Cyclosporine [Restasis] 1 DROP) OP SCH (09:06)
[2018-12-24] MEDS: Loratadine 10 MG TABLET PO SCH (09:06)
[2018-12-24] MEDS: (Terbinafine Hcl 250 MG) PO SCH (09:07)
[2018-12-24] MEDS: Ammonium Lactate 30 APPL/225 GM BOTTLE TP SCH (09:08)
[2018-12-24] MEDS: Tiotropium 18 MCG inhalation IH SCH (09:50)
[2018-12-24] MEDS: Budesonide/Formoterol 160/4.5 1 PUFF INH IH SCH (09:50)
[2018-12-24] MEDS: Ipratropium Neb 0.5 MG NEBULIZER IH PRN (09:50)
[2018-12-24] MEDS: Roflumilast [Daliresp] 500 MCG PO SCH (11:05)
[2018-12-24] MEDS: Insulin LISPRO 300 UNITS/3 ML VIAL SQ SCH (11:05)
--- NOTE | 2018-12-24 11:09 | Discharge Summary ---
- NOTES TO OUTPATIENT PROVIDER Notes to Outpatient Provider: [place] COPD exacerbation and will continue with a long steroid taper as well as doxycycline follow-up with pulmonology Date of Encounter: 12/24/18 Time of Encounter: 11:03 - Discharge Diagnosis (1) GERD (gastroesophageal reflux disease) Priority: Secondary Status: Chronic Qualifiers: Esophagitis presence: esophagitis presence not specified Qualified Code(s): K21.9 - Gastro-esophageal reflux disease without esophagitis (2) Acute exacerbation of chronic obstructive airways disease Priority: Primary Status: Acute (3) Former heavy tobacco smoker Priority: Secondary Status: Chronic (4) Acute and chronic respiratory failure ([id number]) Priority: Secondary Status: Acute Qualifiers: Respiratory failure complication: hypoxia Qualified Code(s): J96.21 - Acute and chronic respiratory failure with hypoxia (5) HTN (hypertension) Priority: Secondary Status: Chronic Qualifiers: Hypertension type: essential hypertension Qualified Code(s): I10 - Essential (primary) hypertension (6) Diabetes Priority: Secondary Status: Chronic Qualifiers: Diabetes mellitus type: type 2 Diabetes mellitus adjunct faculty for medical terminology insulin use: without adjunct faculty for medical terminology use Diabetes mellitus complication status: without complication Qualified Code(s): E11.9 - Type 2 diabetes mellitus without complications Hospital course: Ms. Leon is a 63 year old female past medical history of COPD oxygen dependent hypertension diabetes CHF GERD chronic respiratory failure with multiple admissions. Presented to [facility] ED with increasing shortness of breath despite the use of oxygen or nebulizer treatments. She was given IV steroids as well as scheduled nebulizers and antibiotics. Her shortness of breath has improved and she is currently back to her oxygen baseline and able to ambulate without difficulty or increased shortness of breath. Patient does have to take rests during ambulations which she states is normal. Continues to have cough with clear sputum production. No leukocytosis no fevers. Patient has been advised to follow-up with diorama model maker as well as primary care provider. She does have oxygen as well as BiPAP at home as well as nebulizers. Patient is encouraged to use oxygen at all times. Currently she is hemodynamically stable at this time and she is ready for discharge. - Time Spent with Patient Total time spent providing and/or coordinating discharge services: - Discharge Medications Prescriptions: New Doxycycline 100 mg PO BID #15 capsule predniSONE [PredniSONE] 10 mg PO DAILY #30 tablet Continued Atorvastatin Calcium [Lipitor] 80 mg PO DAILY Sertraline [Zoloft] 50 mg PO DAILY Ferrous Sulfate 325 mg PO DAILY Aspirin Enteric Coated [Aspirin EC] 81 mg PO DAILY Furosemide [Lasix] 20 mg PO DAILY Cyclosporine [Restasis] 1 drop BOTH EYES BID Cyanocobalamin (Vitamin B-12) [Vitamin B-12] 1,000 mcg PO DAILY Umeclidinium [place] [Incruse Ellipta] 1 puff IH DAILY Nitroglycerin 0.4 mg PO Q5M PRN PRN Reason: Chest Pain Ezetimibe [Zetia] 10 mg PO DAILY Albuterol Neb [Proventil Neb] 2.5 mg IH TID PRN PRN Reason: Shortness Of Breath Loratadine [Claritin] 10 mg PO DAILY #30 tablet Dapagliflozin Propanediol [Farxiga] 5 mg PO DAILY Budesonide/Formoterol 160/4.5 [Symbicort 160/4.5] 2 puff IH BID GuaiFENesin ER [Mucinex] 600 mg PO BID PRN tbbp.12hr PRN Reason: Congestion Latanoprost [Xalatan] 1 drop BOTH EYES HS Omeprazole [PriLOSEC] 40 mg PO DAILY Potassium Chloride [K-Tab ER] 20 meq PO DAILY Roflumilast [Daliresp] 500 mcg PO DAILY Cholecalciferol (D-3) [Vitamin D] 1,000 unit PO MO Glimepiride [Amaryl] 1 mg PO DAILY Fluticasone Propionate Nasal [Flonase] 1 spr NS BID Albuterol Sulfate [Ventolin Hfa] 2 puff IH Q4-6H PRN PRN Reason: Shortness Of Breath Ammonium Lactate 1 appl TP BID Terbinafine HCl 250 mg PO DAILY GuaiFENesin/Dextromethorphan [Robitussin Cough-Chest Dm Liq] 10 ml PO DAILY PRN PRN Reason: COUGH/CONGESTION Home Medications: Atorvastatin Calcium [Lipitor] 80 mg PO DAILY 07/14/16 [History] Sertraline [Zoloft] 50 mg PO DAILY 07/15/16 [History] Aspirin Enteric Coated [Aspirin EC] 81 mg PO DAILY 10/22/16 [History] Cyanocobalamin (Vitamin B-12) [Vitamin B-12] 1,000 mcg PO DAILY 10/22/16 [History] Cyclosporine [Restasis] 1 drop BOTH EYES BID 10/22/16 [History] Ferrous Sulfate 325 mg PO DAILY 10/22/16 [History] Furosemide [Lasix] 20 mg PO DAILY 10/22/16 [History] Umeclidinium [place] [Incruse Ellipta] 1 puff IH DAILY 04/01/17 [History] Nitroglycerin 0.4 mg PO Q5M PRN 07/08/17 [History] Ezetimibe [Zetia] 10 mg PO DAILY 09/01/17 [History] Albuterol Neb [Proventil Neb] 2.5 mg IH TID PRN 09/22/17 [History] Loratadine [Claritin] 10 mg PO DAILY #30 tablet 09/26/17 [Rx] Dapagliflozin Propanediol [Farxiga] 5 mg PO DAILY 12/19/17 [History] Budesonide/Formoterol 160/4.5 [Symbicort 160/4.5] 2 puff IH BID 01/19/18 [History] GuaiFENesin ER [Mucinex] 600 mg PO BID PRN tbbp.12hr 03/28/18 [Rx] Latanoprost [Xalatan] 1 drop BOTH EYES HS 06/18/18 [History] Omeprazole [PriLOSEC] 40 mg PO DAILY 06/18/18 [History] Potassium Chloride [K-Tab ER] 20 meq PO DAILY 06/18/18 [History] Roflumilast [Daliresp] 500 mcg PO DAILY 06/18/18 [History] Cholecalciferol (D-3) [Vitamin D] 1,000 unit PO MO 10/03/18 [History] Fluticasone Propionate Nasal [Flonase] 1 spr NS BID 10/03/18 [History] Glimepiride [Amaryl] 1 mg PO DAILY 10/03/18 [History] Albuterol Sulfate [Ventolin Hfa] 2 puff IH Q4-6H PRN 12/20/18 [History] Ammonium Lactate 1 appl TP BID 12/20/18 [History] GuaiFENesin/Dextromethorphan [Robitussin Cough-Chest Dm Liq] 10 ml PO DAILY PRN 12/20/18 [History] Terbinafine HCl 250 mg PO DAILY 12/20/18 [History] Doxycycline 100 mg PO BID #15 capsule 12/24/18 [Rx] predniSONE [PredniSONE] 10 mg PO DAILY #30 tablet 12/24/18 [Rx] Allergies/Adverse Reactions: Allergy/AdvReac Type Severity Reaction Status Date / Time acetaminophen [From Vicodin] AdvReac Headache Verified 12/20/18 13:03 hydrocodone [From Vicodin] AdvReac UPSET Verified 12/20/18 13:03 STOMACH/VOMITING Date of admission: 12/21/18 08:28 Primary care physician: Ray Garcia Consults: 12/21/18 08:02 Consult to Nurse Navigator [CONS] Routine Comment: COPD Discharging clinician: Yolanda Cochran Anticipated date of discharge: 12/24/18 - Constitutional Vitals: Temp Pulse Resp BP Pulse Ox 97.9 F 101 18 121/65 97 12/24/18 06:30 12/24/18 06:30 12/24/18 09:54 12/24/18 06:30 12/24/18 09:54 Exam: Skin: Free of rash and discoloration. Eyes: Sclera is white. There is no discharge from eyes. ENMT: Oral/pharyngeal mucosa is normal in appearance. There is no discharge from nose or ears. Respiratory: Faint expiratory wheeze as well as moist cough CV: Heart is regular with no gallop or murmur. GI: Abdomen is flat and soft with no palpable mass or visceromegaly. : There is no tenderness in patient's flanks bilaterally. Neuro exam: He has good strength in upper and lower extremities. He has normal eye movements. Psychiatric: He has normal affect. His thought process is appropriate to the situation. - Patient Status Disposition: Home, Self-Care Condition: Fair Functional capacity at discharge: independent ambulation Overall status at discharge: patient is back to baseline - Discharge Instructions Instructions: Acute Respiratory Distress Syndrome (DC), Chronic Obstructive Pulmonary Disease (DC) Follow Up With: Ray Garcia MD [Primary Care Provider] - 12/28/18 3:15 pm - Diet and Activity Activity: increase activity as tolerated, wear oxygen at all times Diet: advance to your usual diet
== END 2018-12-24 13:01 | disposition home or self-care (01) | DRG 190 ==
LOC: EMEROOARM 06:29 → 3BNU 06:29
PROVIDERS: ADMIT Internal Medicine; ATTEND Internal Medicine

== ENCOUNTER 2019-03-23 19:23 | Inpatient (IN) ==
[2019-03-23] MEDS ORDERED: Isovue-370 500 ML BOTTLE IVP ONE (20:06)
[2019-03-23] MEDS: Albuterol 2.5 MG/3 ML NEBULIZER IH ONE (20:44)
[2019-03-23 20:45] LABS: ABG Base Excess 2 mEq/L (-2 to 3); ABG HCO3 28 mEq/L (21-27); ABG Oxygen Saturation 97 % (95-98); ABG PCO2 48 mmHg (35-45); ABG PH 7.38 pH Units (7.32-7.45); ABG PO2 96 mmHg (85-104); ABG TCO2 30 mEq/L (20-26)
[2019-03-23 20:45] LABS: Basophils % 0.4 %; Eosinophils # 0.5 K/mcL (0.0-0.6); Eosinophils % 5.4 %; Hematocrit 42.2 % (35.3-44.9); Hemoglobin 13.2 g/dL (11.5-15.4); Immature Granulocytes % 0.3 % (0-4); Lymphocytes # 1.3 K/mcL (0.6-4.6); Lymphocytes % 14.3 %; Mean Corpuscular HGB Conc 31.3 g/dL (31.6-35.5); Mean Corpuscular Volume 89.6 fL (83.0-100.0); Monocytes # 0.8 K/mcL (0.0-1.3); Monocytes % 8.1 %; Neutrophils # 6.6 K/mcL (1.6-8.9); Platelet Count 215 K/mcL (140-400); Red Blood Count 4.71 M/mcL (3.82-4.97); Segmented Neutrophils % 71.5 %; White Blood Count 9.2 K/mcL (4.3-11.1)
[2019-03-23 20:50] LABS: Prothrombin Time 11.7 Seconds (9.4-12.1)
[2019-03-23 20:53] LABS: Activated Partial Thrombo Time 28.5 Seconds (26.0-36.0)
[2019-03-23] MEDS ORDERED: cefTRIAXone 2,000 MG in Water for inj. (sterile) 20 ML IVP ONE (21:05)
[2019-03-23 21:27] LABS: Bilirubin,Urine Negative (Negative); Blood,Urine Trace (Negative); Clarity,Urine Clear (Clear); Color,Urine Yellow (Yellow); Glucose,Urine (UA) >=1000 mg/dL (Normal); Ketones,Urine Negative (Negative); Leukocyte Esterase,Urine Negative (Negative); Nitrite,Urine Negative (Negative); Protein,Urine Negative (Neg-Trace); Specific Gravity,Urine 1.027 (1.010-1.025); Urobilinogen,Urine Normal (Normal)
[2019-03-23 21:29] LABS: Bacteria,Urine None Seen per hpf (None-Few); Hyaline Casts,Urine None Seen per lpf (None-Few); Squamous Epithelial Cell,Urine Moderate per lpf (None-Few)
[2019-03-23 22:05] LABS: Alanine Aminotransferase 14 Units/L (7-52); Albumin 4.3 g/dL (3.5-5.7); Albumin/Globulin Ratio 1.8 (1.1-2.2); Alkaline Phosphatase 43 Units/L (34-104); Aspartate Amino Transferase 15 Units/L (13-39); BUN/Creatinine Ratio 29 (6-26); Bilirubin,Indirect 0.3 mg/dL (0.0-1.2); Bilirubin,Total 0.3 mg/dL (0.3-1.0); Blood Urea Nitrogen 28 mg/dL (8-23); Calcium 9.7 mg/dL (8.6-10.3); Carbon Dioxide 28 mEq/L (23-29); Chloride 104 mEq/L (98-107); Globulin 2.4 g/dL (2.4-3.5); Glucose 101 mg/dL (70-105); Lipase 51 Units/L (11-82); Magnesium 2.2 mg/dL (1.6-2.6); Osmolality,Calculated 288 (280-300); Phosphorous 4.5 mg/dL (2.7-4.5); Potassium 3.7 mEq/L (3.5-5.1); Sodium 136 mEq/L (136-145); Total Protein 6.7 g/dL (6.4-8.9); Troponin I < 0.03 ng/mL (< 0.04); eGFR For African Americans > 60 (> 60); eGFR For Non-African Americans 58 (> 60)
[2019-03-23] MEDS ORDERED: Isovue-370 500 ML BOTTLE PO ONE (22:25)
[2019-03-23] MEDS ORDERED: Famotidine 20 MG/2 ML VIAL IVP ONE (23:17)
[2019-03-23] MEDS ORDERED: methylPREDNISolone 125 MG/2 ML VIAL IVP ONE (23:43)
[2019-03-24] MEDS ORDERED: Albuterol 2.5 MG/3 ML NEBULIZER IH STA ×2 (00:17→00:24)
--- NOTE | 2019-03-24 02:39 | Emergency Department Note ---
Disposition Clinical Impression: COPD with acute exacerbation, Allergic reaction Disposition: Admitted As Inpatient Condition: Fair Time of Disposition: 00:00 Abdominal Pain HPI - General Chief Complaint: ED Chest Pain Stated Complaint: Epigastric chest pain Time Seen by Provider: 03/23/19 19:57 Source: patient, EMS Limitations: no limitations Vital Signs Reviewed: Yes - History of Present Illness HPI Narrative: Patient denies black stool, tarry stool, recent travel, recent surgery, coughing up blood, blood clots in her legs or lungs, hormone therapy for cancer Pt Subjective Complaint: abdominal pain Onset (ago): hour(s) Consistency: intermittent Location: epigastric Pain Severity: mild Pain Scale: 0 Quality: aching Radiation: chest Improves with: nothing Worsens with: nothing Associated symptoms: Reports: other (dyspnea) - Related Data Home Medications Medication Instructions Recorded Confirmed Atorvastatin Calcium [Lipitor] 80 mg PO QAM 07/14/16 03/24/19 Sertraline [Zoloft] 50 mg PO DAILY 07/15/16 03/24/19 Aspirin Enteric Coated [Aspirin EC] 81 mg PO DAILY 10/22/16 03/24/19 Cyanocobalamin (Vitamin B-12) 1,000 mcg PO DAILY 10/22/16 03/24/19 [Vitamin B-12] Cyclosporine [Restasis] 1 drop BOTH EYES BID 10/22/16 03/24/19 Ferrous Sulfate 325 mg PO DAILY 10/22/16 03/24/19 Furosemide [Lasix] 20 mg PO DAILY 10/22/16 03/24/19 Umeclidinium Noxapater [Incruse 1 puff IH DAILY 04/01/17 03/24/19 Ellipta] Nitroglycerin 0.4 mg PO Q5M PRN 07/08/17 03/24/19 Ezetimibe [Zetia] 10 mg PO DAILY 09/01/17 03/24/19 Albuterol Neb [Proventil Neb] 2.5 mg IH Q4H PRN 09/22/17 03/24/19 Dapagliflozin Propanediol [Farxiga] 5 mg PO DAILY 12/19/17 03/24/19 Budesonide/Formoterol 160/4.5 2 puff IH BID 01/19/18 03/24/19 [Symbicort 160/4.5] Latanoprost [Xalatan] 1 drop BOTH EYES QAM PRN 06/18/18 03/24/19 Omeprazole [PriLOSEC] 40 mg PO DAILY 06/18/18 03/24/19 Potassium Chloride [K-Tab ER] 20 meq PO DAILY 06/18/18 03/24/19 Roflumilast [Daliresp] 500 mcg PO DAILY 06/18/18 03/24/19 Fluticasone Propionate Nasal 1 spr NS QAM 10/03/18 03/24/19 [Flonase] Glimepiride [Amaryl] 1 mg PO QAM 10/03/18 03/24/19 Albuterol Sulfate [Ventolin Hfa] 2 puff IH Q4H PRN 12/20/18 03/24/19 Ammonium Lactate 1 appl TP BID 12/20/18 03/24/19 GuaiFENesin/Dextromethorphan 10 ml PO HS PRN 12/20/18 03/24/19 [Robitussin Cough-Chest Dm Liq] Cholecalciferol (Vitamin D3) 800 unit PO DAILY 03/24/19 03/24/19 [Vitamin D3] Fluticasone Propionate Nasal 1 spray NS QPM PRN 03/24/19 03/24/19 [Flonase] Guaifenesin [Mucinex] 600 mg PO Q12H PRN 03/24/19 03/24/19 Travoprost [Travatan Z] 1 drop BOTH EYES HS 03/24/19 03/24/19 rOPINIRole [Requip] 1 mg PO HS 03/24/19 03/24/19 Previous Rx's Medication Instructions Recorded Loratadine [Claritin] 10 mg PO DAILY #30 tablet 09/26/17 Doxycycline 100 mg PO BID #10 capsule 03/28/19 predniSONE [PredniSONE] 40 mg PO DAILY #20 tablet 03/28/19 Allergies Allergy/AdvReac Type Severity Reaction Status Date / Time acetaminophen [From Vicodin] AdvReac Headache Verified 03/24/19 19:34 hydrocodone [From Vicodin] AdvReac UPSET Verified 03/24/19 19:34 STOMACH/VOMITING All systems ED: reviewed and negative except as stated. Constitutional: Denies: fever, chills Cardiovascular: Denies: palpitations, syncope Respiratory: Reports: cough, dyspnea, wheezes, sputum production. 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 Absent: tenderness - Respiratory Respiratory exam: Present: wheezes, prolonged expiratory phase - Cardiovascular Cardiovascular exam: Present: regular rate, tachycardia - Abdominal Exam Abdominal exam: Present: soft, tenderness, normal bowel sounds. Absent: distention, guarding Abdominal tenderness: Present: epigastrium - Extremities Exam Extremities exam: Present: normal inspection, normal capillary refill. Absent: calf tenderness - Expanded Lower Extremity Exam Lower leg exam: Present: normal inspection. Absent: tenderness, swelling, palpable cord, Homans' sign Neurovascular/Tendon exam: Present: normal capillary refill, pulse deficit, motor deficit, sensory deficit - Back Exam Back exam: Absent: CVA tenderness (R), vertebral tenderness - Neurological Exam Neurological exam: Present: alert, oriented X3, motor sensory deficit - Psychiatric Psychiatric exam: Present: normal affect, normal mood - Skin Skin exam: Present: warm, dry, intact, normal color Course Vital Signs Temperature 98.2 F 03/23/19 19:27 Pulse Rate 120 03/23/19 19:27 Respiratory Rate 25 03/23/19 19:27 Blood Pressure 98/70 03/23/19 19:27 O2 Sat by Pulse Oximetry 94 03/23/19 19:27 Temperature 98.1 F 03/28/19 07:34 Pulse Rate 96 03/28/19 07:34 Respiratory Rate 16 03/28/19 11:35 Blood Pressure 102/67 03/28/19 07:34 O2 Sat by Pulse Oximetry 97 03/28/19 11:35 Oxygen Delivery Oxygen Delivery Nasal Cannula Abdominal Pain - MDM Narrative Medical decision making narrative: Patient admits to wheezing, productive cough. Patient was given a dose of Rocephin in the emergency room. Patient has no allergies to antibiotics which she acknowledged. Shortly after receiving Rocephin patient began complaining of some itching. Patient denies any tongue swelling or problems swallowing, drooling. Patient was given a dose of Benadryl Solu-Medrol and Pepcid which she states she has had in the past. Patient did continue to wheeze and was given 2 additional treatments of albuterol. Patient's symptoms did improve and patient requested to eat while in the emergency room.. Which was localized - Differential Diagnosis Differential Diagnosis: Likely: abdominal pain non-specific, AAA, abdominal pain mimics ectopic , acute appendicitis, calculus of kidney, constipation, colonic obstruction, diverticulitis, diverticulosis, endometriosis, gastroenteritis, hernia, ischemic bowel, pancreatitis, small bowel obstruction - Lab Data Result diagrams: 03/28/19 05:03 03/28/19 05:03 Lab Results 03/23/19 03/23/19 03/23/19 Range/Units 20:26 20:26 20:26 WBC 9.2 (4.3-11.1) K/mcL RBC 4.71 (3.82-4.97) M/mcL Hgb 13.2 (11.5-15.4) g/dL Hct 42.2 (35.3-44.9) % MCV 89.6 (83.0-100.0) fL MCH 28.0 (28.0-33.3) pg MCHC 31.3 L (31.6-35.5) g/dL RDW 14.0 (11.5-14.5) % Plt Count 215 (140-400) K/mcL MPV 9.0 L (9.4-12.4) fL Immature Gran % 0.3 (0-4) % Seg Neutrophils % 71.5 % Lymphocytes % 14.3 % Monocytes % 8.1 % Eosinophils % 5.4 % Basophils % 0.4 % Neutrophils # 6.6 (1.6-8.9) K/mcL Lymphocytes # 1.3 (0.6-4.6) K/mcL Monocytes # 0.8 (0.0-1.3) K/mcL Eosinophils # 0.5 (0.0-0.6) K/mcL Basophils # 0.0 (0.0-0.2) K/mcL PT 11.7 (9.4-12.1) Seconds INR 1.0 APTT 28.5 (26.0-36.0) Seconds Sample Site ABG pH (7.32-7.45) pH Units ABG pCO2 (35-45) mmHg ABG pO2 (85-104) mmHg ABG HCO3 (21-27) mEq/L ABG Total CO2 (20-26) mEq/L ABG O2 Saturation (95-98) % ABG Base Excess (-2 to 3) mEq/L Thomas Test O2 Delivery Device Inspired O2 (1-15=lpm [id number]=%) Sodium (136-145) mEq/L Potassium (3.5-5.1) mEq/L Chloride (98-107) mEq/L Carbon Dioxide (23-29) mEq/L BUN (8-23) mg/dL Creatinine (0.60-1.20) mg/dL Est GFR ( Amer) (> 60) Est GFR (Non-Af Amer) (> 60) BUN/Creatinine Ratio (6-26) Glucose (70-105) mg/dL POC Glucose (70-99) mg/dL Calculated Osmolality (280-300) Lactic Acid 0.8 (0.5-2.2) mmol/L Calcium (8.6-10.3) mg/dL Phosphorus (2.7-4.5) mg/dL Magnesium (1.6-2.6) mg/dL Total Bilirubin (0.3-1.0) mg/dL Direct Bilirubin (0.0-0.2) mg/dL Indirect Bilirubin (0.0-1.2) mg/dL AST (13-39) Units/L ALT (7-52) Units/L Alkaline Phosphatase (34-104) Units/L Troponin I (< 0.04) ng/mL Serum Total Protein (6.4-8.9) g/dL Albumin (3.5-5.7) g/dL Globulin (2.4-3.5) g/dL Albumin/Globulin Ratio (1.1-2.2) Lipase (11-82) Units/L Urine Color (Yellow) Urine Clarity (Clear) Urine pH (5.0-8.0) pH Units Ur Specific [place] (1.010-1.025) Urine Protein (Neg-Trace) mg/dL Urine Glucose (UA) (Normal) mg/dL Urine Ketones (Negative) mg/dL Urine Blood (Negative) Urine Nitrite (Negative) Urine Bilirubin (Negative) Urine Urobilinogen (Normal) mg/dL Ur Leukocyte Esterase (Negative) Urine Microscopic RBC (0-3) per hpf Urine Microscopic WBC (0-3) per hpf Ur Squamous Epith Cells (None-Few) per lpf Urine Bacteria (None-Few) per hpf Hyaline Casts (None-Few) per lpf Ur Culture Indicated? (NO) Chlamy pneumoniae PCR (Not Detect) Adenovirus (PCR) (Not Detect) B. pertussis DNA (PCR) (Not Detect) B.parapertussis DNA PCR (Not Detect) Coronavirus OC43 (PCR) (Not Detect) Coronavirus HKU1 (PCR) (Not Detect) Coronavirus 229E (PCR) (Not Detect) Coronavirus NL63 (PCR) (Not Detect) Human Metapneumovir PCR (Not Detect) Influenza A (H1) PCR (Not Detect) Influ A (H1N1/09) PCR (Not Detect) Influenza A (H3) PCR (Not Detect) Influenza A Untype (PCR) (Not Detect) Influenza Type B (PCR) (Not Detect) M.pneumoniae DNA (PCR) (Not Detect) Parainfluenza 1 (PCR) (Not Detect) Parainfluenza 2 (PCR) (Not Detect) Parainfluenza 3 (PCR) (Not Detect) Parainfluenza 4 (PCR) (Not Detect) RSV (PCR) (Not Detect) Entero/Rhino (PCR) (Not Detect) Specimen Rejected 03/23/19 03/23/19 03/23/19 Range/Units 20:26 20:42 21:05 WBC (4.3-11.1) K/mcL RBC (3.82-4.97) M/mcL Hgb (11.5-15.4) g/dL Hct (35.3-44.9) % MCV (83.0-100.0) fL MCH (28.0-33.3) pg MCHC (31.6-35.5) g/dL RDW (11.5-14.5) % Plt Count (140-400) K/mcL MPV (9.4-12.4) fL Immature Gran % (0-4) % Seg Neutrophils % % Lymphocytes % % Monocytes % % Eosinophils % % Basophils % % Neutrophils # (1.6-8.9) K/mcL Lymphocytes # (0.6-4.6) K/mcL Monocytes # (0.0-1.3) K/mcL Eosinophils # (0.0-0.6) K/mcL Basophils # (0.0-0.2) K/mcL PT (9.4-12.1) Seconds INR APTT (26.0-36.0) Seconds Sample Site R Radial ABG pH 7.38 (7.32-7.45) pH Units ABG pCO2 48 H (35-45) mmHg ABG pO2 96 (85-104) mmHg ABG HCO3 28 H (21-27) mEq/L ABG Total CO2 30 H (20-26) mEq/L ABG O2 Saturation 97 (95-98) % ABG Base Excess 2 (-2 to 3) mEq/L Thomas Test Positive O2 Delivery Device Cannula Inspired O2 32.0 (1-15=lpm [id number]=%) Sodium (136-145) mEq/L Potassium (3.5-5.1) mEq/L Chloride (98-107) mEq/L Carbon Dioxide (23-29) mEq/L BUN (8-23) mg/dL Creatinine (0.60-1.20) mg/dL Est GFR ( Amer) (> 60) Est GFR (Non-Af Amer) (> 60) BUN/Creatinine Ratio (6-26) Glucose (70-105) mg/dL POC Glucose (70-99) mg/dL Calculated Osmolality (280-300) Lactic Acid (0.5-2.2) mmol/L Calcium (8.6-10.3) mg/dL Phosphorus (2.7-4.5) mg/dL Magnesium (1.6-2.6) mg/dL Total Bilirubin (0.3-1.0) mg/dL Direct Bilirubin (0.0-0.2) mg/dL Indirect Bilirubin (0.0-1.2) mg/dL AST (13-39) Units/L ALT (7-52) Units/L Alkaline Phosphatase (34-104) Units/L Troponin I (< 0.04) ng/mL Serum Total Protein (6.4-8.9) g/dL Albumin (3.5-5.7) g/dL Globulin (2.4-3.5) g/dL Albumin/Globulin Ratio (1.1-2.2) Lipase (11-82) Units/L Urine Color Yellow (Yellow) Urine Clarity Clear (Clear) Urine pH 6.0 (5.0-8.0) pH Units Ur Specific [place] 1.027 H (1.010-1.025) Urine Protein Negative (Neg-Trace) mg/dL Urine Glucose (UA) >=1000 H (Normal) mg/dL Urine Ketones Negative (Negative) mg/dL Urine Blood Trace H (Negative) Urine Nitrite Negative (Negative) Urine Bilirubin Negative (Negative) Urine Urobilinogen Normal (Normal) mg/dL Ur Leukocyte Esterase Negative (Negative) Urine Microscopic RBC 3-5 H (0-3) per hpf Urine Microscopic WBC 3-5 H (0-3) per hpf Ur Squamous Epith Cells Moderate H (None-Few) per lpf Urine Bacteria None Seen (None-Few) per hpf Hyaline Casts None Seen (None-Few) per lpf Ur Culture Indicated? NO (NO) Chlamy pneumoniae PCR (Not Detect) Adenovirus (PCR) (Not Detect) B. pertussis DNA (PCR) (Not Detect) B.parapertussis DNA PCR (Not Detect) Coronavirus OC43 (PCR) (Not Detect) Coronavirus HKU1 (PCR) (Not Detect) Coronavirus 229E (PCR) (Not Detect) Coronavirus NL63 (PCR) (Not Detect) Human Metapneumovir PCR (Not Detect) Influenza A (H1) PCR (Not Detect) Influ A (H1N1/09) PCR (Not Detect) Influenza A (H3) PCR (Not Detect) Influenza A Untype (PCR) (Not Detect) Influenza Type B (PCR) (Not Detect) M.pneumoniae DNA (PCR) (Not Detect) Parainfluenza 1 (PCR) (Not Detect) Parainfluenza 2 (PCR) (Not Detect) Parainfluenza 3 (PCR) (Not Detect) Parainfluenza 4 (PCR) (Not Detect) RSV (PCR) (Not Detect) Entero/Rhino (PCR) (Not Detect) Specimen Rejected Volume 03/23/19 03/24/19 03/24/19 Range/Units 21:12 06:32 06:32 WBC 7.8 (4.3-11.1) K/mcL RBC 4.80 (3.82-4.97) M/mcL Hgb 13.3 (11.5-15.4) g/dL Hct 42.7 (35.3-44.9) % MCV 89.0 (83.0-100.0) fL MCH 27.7 L (28.0-33.3) pg MCHC 31.1 L (31.6-35.5) g/dL RDW 13.9 (11.5-14.5) % Plt Count 223 (140-400) K/mcL MPV 9.4 (9.4-12.4) fL Immature Gran % 0.3 (0-4) % Seg Neutrophils % 94.7 % Lymphocytes % 4.0 % Monocytes % 0.6 % Eosinophils % 0.0 % Basophils % 0.4 % Neutrophils # 7.4 (1.6-8.9) K/mcL Lymphocytes # 0.3 L (0.6-4.6) K/mcL Monocytes # 0.1 (0.0-1.3) K/mcL Eosinophils # 0.0 (0.0-0.6) K/mcL Basophils # 0.0 (0.0-0.2) K/mcL PT (9.4-12.1) Seconds INR APTT (26.0-36.0) Seconds Sample Site ABG pH (7.32-7.45) pH Units ABG pCO2 (35-45) mmHg ABG pO2 (85-104) mmHg ABG HCO3 (21-27) mEq/L ABG Total CO2 (20-26) mEq/L ABG O2 Saturation (95-98) % ABG Base Excess (-2 to 3) mEq/L Thomas Test O2 Delivery Device Inspired O2 (1-15=lpm [id number]=%) Sodium 136 136 (136-145) mEq/L Potassium 3.7 4.2 (3.5-5.1) mEq/L Chloride 104 103 (98-107) mEq/L Carbon Dioxide 28 27 (23-29) mEq/L BUN 28 H 22 (8-23) mg/dL Creatinine 0.96 0.69 (0.60-1.20) mg/dL Est GFR ( Amer) > 60 > 60 (> 60) Est GFR (Non-Af Amer) 58 L > 60 (> 60) BUN/Creatinine Ratio 29 H 32 H (6-26) Glucose 101 213 H (70-105) mg/dL POC Glucose (70-99) mg/dL Calculated Osmolality 288 292 (280-300) Lactic Acid (0.5-2.2) mmol/L Calcium 9.7 9.6 (8.6-10.3) mg/dL Phosphorus 4.5 (2.7-4.5) mg/dL Magnesium 2.2 (1.6-2.6) mg/dL Total Bilirubin 0.3 (0.3-1.0) mg/dL Direct Bilirubin 0.0 (0.0-0.2) mg/dL Indirect Bilirubin 0.3 (0.0-1.2) mg/dL AST 15 (13-39) Units/L ALT 14 (7-52) Units/L Alkaline Phosphatase 43 (34-104) Units/L Troponin I < 0.03 (< 0.04) ng/mL Serum Total Protein 6.7 (6.4-8.9) g/dL Albumin 4.3 (3.5-5.7) g/dL Globulin 2.4 (2.4-3.5) g/dL Albumin/Globulin Ratio 1.8 (1.1-2.2) Lipase 51 (11-82) Units/L Urine Color (Yellow) Urine Clarity (Clear) Urine pH (5.0-8.0) pH Units Ur Specific [place] (1.010-1.025) Urine Protein (Neg-Trace) mg/dL Urine Glucose (UA) (Normal) mg/dL Urine Ketones (Negative) mg/dL Urine Blood (Negative) Urine Nitrite (Negative) Urine Bilirubin (Negative) Urine Urobilinogen (Normal) mg/dL Ur Leukocyte Esterase (Negative) Urine Microscopic RBC (0-3) per hpf Urine Microscopic WBC (0-3) per hpf Ur Squamous Epith Cells (None-Few) per lpf Urine Bacteria (None-Few) per hpf Hyaline Casts (None-Few) per lpf Ur Culture Indicated? (NO) Chlamy pneumoniae PCR (Not Detect) Adenovirus (PCR) (Not Detect) B. pertussis DNA (PCR) (Not Detect) B.parapertussis DNA PCR (Not Detect) Coronavirus OC43 (PCR) (Not Detect) Coronavirus HKU1 (PCR) (Not Detect) Coronavirus 229E (PCR) (Not Detect) Coronavirus NL63 (PCR) (Not Detect) Human Metapneumovir PCR (Not Detect) Influenza A (H1) PCR (Not Detect) Influ A (H1N1/09) PCR (Not Detect) Influenza A (H3) PCR (Not Detect) Influenza A Untype (PCR) (Not Detect) Influenza Type B (PCR) (Not Detect) M.pneumoniae DNA (PCR) (Not Detect) Parainfluenza 1 (PCR) (Not Detect) Parainfluenza 2 (PCR) (Not Detect) Parainfluenza 3 (PCR) (Not Detect) Parainfluenza 4 (PCR) (Not Detect) RSV (PCR) (Not Detect) Entero/Rhino (PCR) (Not Detect) Specimen Rejected 03/24/19 03/24/19 03/24/19 Range/Units 08:37 11:15 16:39 WBC (4.3-11.1) K/mcL RBC (3.82-4.97) M/mcL Hgb (11.5-15.4) g/dL Hct (35.3-44.9) % MCV (83.0-100.0) fL MCH (28.0-33.3) pg MCHC (31.6-35.5) g/dL RDW (11.5-14.5) % Plt Count (140-400) K/mcL MPV (9.4-12.4) fL Immature Gran % (0-4) % Seg Neutrophils % % Lymphocytes % % Monocytes % % Eosinophils % % Basophils % % Neutrophils # (1.6-8.9) K/mcL Lymphocytes # (0.6-4.6) K/mcL Monocytes # (0.0-1.3) K/mcL Eosinophils # (0.0-0.6) K/mcL Basophils # (0.0-0.2) K/mcL PT (9.4-12.1) Seconds INR APTT (26.0-36.0) Seconds Sample Site ABG pH (7.32-7.45) pH Units ABG pCO2 (35-45) mmHg ABG pO2 (85-104) mmHg ABG HCO3 (21-27) mEq/L ABG Total CO2 (20-26) mEq/L ABG O2 Saturation (95-98) % ABG Base Excess (-2 to 3) mEq/L Thomas Test O2 Delivery Device Inspired O2 (1-15=lpm [id number]=%) Sodium (136-145) mEq/L Potassium (3.5-5.1) mEq/L Chloride (98-107) mEq/L Carbon Dioxide (23-29) mEq/L BUN (8-23) mg/dL Creatinine (0.60-1.20) mg/dL Est GFR ( Amer) (> 60) Est GFR (Non-Af Amer) (> 60) BUN/Creatinine Ratio (6-26) Glucose (70-105) mg/dL POC Glucose 230 H 210 H 169 H (70-99) mg/dL Calculated Osmolality (280-300) Lactic Acid (0.5-2.2) mmol/L Calcium (8.6-10.3) mg/dL Phosphorus (2.7-4.5) mg/dL Magnesium (1.6-2.6) mg/dL Total Bilirubin (0.3-1.0) mg/dL Direct Bilirubin (0.0-0.2) mg/dL Indirect Bilirubin (0.0-1.2) mg/dL AST (13-39) Units/L ALT (7-52) Units/L Alkaline Phosphatase (34-104) Units/L Troponin I (< 0.04) ng/mL Serum Total Protein (6.4-8.9) g/dL Albumin (3.5-5.7) g/dL Globulin (2.4-3.5) g/dL Albumin/Globulin Ratio (1.1-2.2) Lipase (11-82) Units/L Urine Color (Yellow) Urine Clarity (Clear) Urine pH (5.0-8.0) pH Units Ur Specific [place] (1.010-1.025) Urine Protein (Neg-Trace) mg/dL Urine Glucose (UA) (Normal) mg/dL Urine Ketones (Negative) mg/dL Urine Blood (Negative) Urine Nitrite (Negative) Urine Bilirubin (Negative) Urine Urobilinogen (Normal) mg/dL Ur Leukocyte Esterase (Negative) Urine Microscopic RBC (0-3) per hpf Urine Microscopic WBC (0-3) per hpf Ur Squamous Epith Cells (None-Few) per lpf Urine Bacteria (None-Few) per hpf Hyaline Casts (None-Few) per lpf Ur Culture Indicated? (NO) Chlamy pneumoniae PCR (Not Detect) Adenovirus (PCR) (Not Detect) B. pertussis DNA (PCR) (Not Detect) B.parapertussis DNA PCR (Not Detect) Coronavirus OC43 (PCR) (Not Detect) Coronavirus HKU1 (PCR) (Not Detect) Coronavirus 229E (PCR) (Not Detect) Coronavirus NL63 (PCR) (Not Detect) Human Metapneumovir PCR (Not Detect) Influenza A (H1) PCR (Not Detect) Influ A (H1N1/09) PCR (Not Detect) Influenza A (H3) PCR (Not Detect) Influenza A Untype (PCR) (Not Detect) Influenza Type B (PCR) (Not Detect) M.pneumoniae DNA (PCR) (Not Detect) Parainfluenza 1 (PCR) (Not Detect) Parainfluenza 2 (PCR) (Not Detect) Parainfluenza 3 (PCR) (Not Detect) Parainfluenza 4 (PCR) (Not Detect) RSV (PCR) (Not Detect) Entero/Rhino (PCR) (Not Detect) Specimen Rejected 03/24/19 03/25/19 03/25/19 Range/Units 19:55 03:22 03:22 WBC 10.9 (4.3-11.1) K/mcL RBC 4.42 (3.82-4.97) M/mcL Hgb 12.3 (11.5-15.4) g/dL Hct 38.8 (35.3-44.9) % MCV 87.8 (83.0-100.0) fL MCH 27.8 L (28.0-33.3) pg MCHC 31.7 (31.6-35.5) g/dL RDW 14.2 (11.5-14.5) % Plt Count 222 (140-400) K/mcL MPV 9.4 (9.4-12.4) fL Immature Gran % (0-4) % Seg Neutrophils % % Lymphocytes % % Monocytes % % Eosinophils % % Basophils % % Neutrophils # (1.6-8.9) K/mcL Lymphocytes # (0.6-4.6) K/mcL Monocytes # (0.0-1.3) K/mcL Eosinophils # (0.0-0.6) K/mcL Basophils # (0.0-0.2) K/mcL PT (9.4-12.1) Seconds INR APTT (26.0-36.0) Seconds Sample Site ABG pH (7.32-7.45) pH Units ABG pCO2 (35-45) mmHg ABG pO2 (85-104) mmHg ABG HCO3 (21-27) mEq/L ABG Total CO2 (20-26) mEq/L ABG O2 Saturation (95-98) % ABG Base Excess (-2 to 3) mEq/L Thomas Test O2 Delivery Device Inspired O2 (1-15=lpm [id number]=%) Sodium 138 (136-145) mEq/L Potassium 4.2 (3.5-5.1) mEq/L Chloride 105 (98-107) mEq/L Carbon Dioxide 26 (23-29) mEq/L BUN 22 (8-23) mg/dL Creatinine 0.77 (0.60-1.20) mg/dL Est GFR ( Amer) > 60 (> 60) Est GFR (Non-Af Amer) > 60 (> 60) BUN/Creatinine Ratio 29 H (6-26) Glucose 244 H (70-105) mg/dL POC Glucose 183 H (70-99) mg/dL Calculated Osmolality 297 (280-300) Lactic Acid (0.5-2.2) mmol/L Calcium 9.5 (8.6-10.3) mg/dL Phosphorus (2.7-4.5) mg/dL Magnesium (1.6-2.6) mg/dL Total Bilirubin (0.3-1.0) mg/dL Direct Bilirubin (0.0-0.2) mg/dL Indirect Bilirubin (0.0-1.2) mg/dL AST (13-39) Units/L ALT (7-52) Units/L Alkaline Phosphatase (34-104) Units/L Troponin I (< 0.04) ng/mL Serum Total Protein (6.4-8.9) g/dL Albumin (3.5-5.7) g/dL Globulin (2.4-3.5) g/dL Albumin/Globulin Ratio (1.1-2.2) Lipase (11-82) Units/L Urine Color (Yellow) Urine Clarity (Clear) Urine pH (5.0-8.0) pH Units Ur Specific [place] (1.010-1.025) Urine Protein (Neg-Trace) mg/dL Urine Glucose (UA) (Normal) mg/dL Urine Ketones (Negative) mg/dL Urine Blood (Negative) Urine Nitrite (Negative) Urine Bilirubin (Negative) Urine Urobilinogen (Normal) mg/dL Ur Leukocyte Esterase (Negative) Urine Microscopic RBC (0-3) per hpf Urine Microscopic WBC (0-3) per hpf Ur Squamous Epith Cells (None-Few) per lpf Urine Bacteria (None-Few) per hpf Hyaline Casts (None-Few) per lpf Ur Culture Indicated? (NO) Chlamy pneumoniae PCR (Not Detect) Adenovirus (PCR) (Not Detect) B. pertussis DNA (PCR) (Not Detect) B.parapertussis DNA PCR (Not Detect) Coronavirus OC43 (PCR) (Not Detect) Coronavirus HKU1 (PCR) (Not Detect) Coronavirus 229E (PCR) (Not Detect) Coronavirus NL63 (PCR) (Not Detect) Human Metapneumovir PCR (Not Detect) Influenza A (H1) PCR (Not Detect) Influ A (H1N1/09) PCR (Not Detect) Influenza A (H3) PCR (Not Detect) Influenza A Untype (PCR) (Not Detect) Influenza Type B (PCR) (Not Detect) M.pneumoniae DNA (PCR) (Not Detect) Parainfluenza 1 (PCR) (Not Detect) Parainfluenza 2 (PCR) (Not Detect) Parainfluenza 3 (PCR) (Not Detect) Parainfluenza 4 (PCR) (Not Detect) RSV (PCR) (Not Detect) Entero/Rhino (PCR) (Not Detect) Specimen Rejected 03/25/19 03/25/19 03/25/19 Range/Units 08:31 12:38 12:44 WBC (4.3-11.1) K/mcL RBC (3.82-4.97) M/mcL Hgb (11.5-15.4) g/dL Hct (35.3-44.9) % MCV (83.0-100.0) fL MCH (28.0-33.3) pg MCHC (31.6-35.5) g/dL RDW (11.5-14.5) % Plt Count (140-400) K/mcL MPV (9.4-12.4) fL Immature Gran % (0-4) % Seg Neutrophils % % Lymphocytes % % Monocytes % % Eosinophils % % Basophils % % Neutrophils # (1.6-8.9) K/mcL Lymphocytes # (0.6-4.6) K/mcL Monocytes # (0.0-1.3) K/mcL Eosinophils # (0.0-0.6) K/mcL Basophils # (0.0-0.2) K/mcL PT (9.4-12.1) Seconds INR APTT (26.0-36.0) Seconds Sample Site ABG pH (7.32-7.45) pH Units ABG pCO2 (35-45) mmHg ABG pO2 (85-104) mmHg ABG HCO3 (21-27) mEq/L ABG Total CO2 (20-26) mEq/L ABG O2 Saturation (95-98) % ABG Base Excess (-2 to 3) mEq/L Thomas Test O2 Delivery Device Inspired O2 (1-15=lpm [id number]=%) Sodium (136-145) mEq/L Potassium (3.5-5.1) mEq/L Chloride (98-107) mEq/L Carbon Dioxide (23-29) mEq/L BUN (8-23) mg/dL Creatinine (0.60-1.20) mg/dL Est GFR ( Amer) (> 60) Est GFR (Non-Af Amer) (> 60) BUN/Creatinine Ratio (6-26) Glucose (70-105) mg/dL POC Glucose 218 H 188 H (70-99) mg/dL Calculated Osmolality (280-300) Lactic Acid (0.5-2.2) mmol/L Calcium (8.6-10.3) mg/dL Phosphorus (2.7-4.5) mg/dL Magnesium (1.6-2.6) mg/dL Total Bilirubin (0.3-1.0) mg/dL Direct Bilirubin (0.0-0.2) mg/dL Indirect Bilirubin (0.0-1.2) mg/dL AST (13-39) Units/L ALT (7-52) Units/L Alkaline Phosphatase (34-104) Units/L Troponin I (< 0.04) ng/mL Serum Total Protein (6.4-8.9) g/dL Albumin (3.5-5.7) g/dL Globulin (2.4-3.5) g/dL Albumin/Globulin Ratio (1.1-2.2) Lipase (11-82) Units/L Urine Color (Yellow) Urine Clarity (Clear) Urine pH (5.0-8.0) pH Units Ur Specific [place] (1.010-1.025) Urine Protein (Neg-Trace) mg/dL Urine Glucose (UA) (Normal) mg/dL Urine Ketones (Negative) mg/dL Urine Blood (Negative) Urine Nitrite (Negative) Urine Bilirubin (Negative) Urine Urobilinogen (Normal) mg/dL Ur Leukocyte Esterase (Negative) Urine Microscopic RBC (0-3) per hpf Urine Microscopic WBC (0-3) per hpf Ur Squamous Epith Cells (None-Few) per lpf Urine Bacteria (None-Few) per hpf Hyaline Casts (None-Few) per lpf Ur Culture Indicated? (NO) Chlamy pneumoniae PCR Not Detected (Not Detect) Adenovirus (PCR) Not Detected (Not Detect) B. pertussis DNA (PCR) Not Detected (Not Detect) B.parapertussis DNA PCR Not Detected (Not Detect) Coronavirus OC43 (PCR) Not Detected (Not Detect) Coronavirus HKU1 (PCR) Not Detected (Not Detect) Coronavirus 229E (PCR) Not Detected (Not Detect) Coronavirus NL63 (PCR) Not Detected (Not Detect) Human Metapneumovir PCR Not Detected (Not Detect) Influenza A (H1) PCR Not Detected (Not Detect) Influ A (H1N1/09) PCR Not Detected (Not Detect) Influenza A (H3) PCR Not Detected (Not Detect) Influenza A Untype (PCR) Not Detected (Not Detect) Influenza Type B (PCR) Not Detected (Not Detect) M.pneumoniae DNA (PCR) Not Detected (Not Detect) Parainfluenza 1 (PCR) Not Detected (Not Detect) Parainfluenza 2 (PCR) Not Detected (Not Detect) Parainfluenza 3 (PCR) Not Detected (Not Detect) Parainfluenza 4 (PCR) Not Detected (Not Detect) RSV (PCR) Not Detected (Not Detect) Entero/Rhino (PCR) Not Detected (Not Detect) Specimen Rejected 03/25/19 03/25/19 03/26/19 Range/Units 17:14 19:27 08:10 WBC (4.3-11.1) K/mcL RBC (3.82-4.97) M/mcL Hgb (11.5-15.4) g/dL Hct (35.3-44.9) % MCV (83.0-100.0) fL MCH (28.0-33.3) pg MCHC (31.6-35.5) g/dL RDW (11.5-14.5) % Plt Count (140-400) K/mcL MPV (9.4-12.4) fL Immature Gran % (0-4) % Seg Neutrophils % % Lymphocytes % % Monocytes % % Eosinophils % % Basophils % % Neutrophils # (1.6-8.9) K/mcL Lymphocytes # (0.6-4.6) K/mcL Monocytes # (0.0-1.3) K/mcL Eosinophils # (0.0-0.6) K/mcL Basophils # (0.0-0.2) K/mcL PT (9.4-12.1) Seconds INR APTT (26.0-36.0) Seconds Sample Site ABG pH (7.32-7.45) pH Units ABG pCO2 (35-45) mmHg ABG pO2 (85-104) mmHg ABG HCO3 (21-27) mEq/L ABG Total CO2 (20-26) mEq/L ABG O2 Saturation (95-98) % ABG Base Excess (-2 to 3) mEq/L Thomas Test O2 Delivery Device Inspired O2 (1-15=lpm [id number]%) Sodium (136-145) mEq/L Potassium (3.5-5.1) mEq/L Chloride (98-107) mEq/L Carbon Dioxide (23-29) mEq/L BUN (8-23) mg/dL Creatinine (0.60-1.20) mg/dL Est GFR ( Amer) (> 60) Est GFR (Non-Af Amer) (> 60) BUN/Creatinine Ratio (6-26) Glucose (70-105) mg/dL POC Glucose 234 H 227 H 204 H (70-99) mg/dL Calculated Osmolality (280-300) Lactic Acid (0.5-2.2) mmol/L Calcium (8.6-10.3) mg/dL Phosphorus (2.7-4.5) mg/dL Magnesium (1.6-2.6) mg/dL Total Bilirubin (0.3-1.0) mg/dL Direct Bilirubin (0.0-0.2) mg/dL Indirect Bilirubin (0.0-1.2) mg/dL AST (13-39) Units/L ALT (7-52) Units/L Alkaline Phosphatase (34-104) Units/L Troponin I (< 0.04) ng/mL Serum Total Protein (6.4-8.9) g/dL Albumin (3.5-5.7) g/dL Globulin (2.4-3.5) g/dL Albumin/Globulin Ratio (1.1-2.2) Lipase (11-82) Units/L Urine Color (Yellow) Urine Clarity (Clear) Urine pH (5.0-8.0) pH Units Ur Specific [place] (1.010-1.025) Urine Protein (Neg-Trace) mg/dL Urine Glucose (UA) (Normal) mg/dL Urine Ketones (Negative) mg/dL Urine Blood (Negative) Urine Nitrite (Negative) Urine Bilirubin (Negative) Urine Urobilinogen (Normal) mg/dL Ur Leukocyte Esterase (Negative) Urine Microscopic RBC (0-3) per hpf Urine Microscopic WBC (0-3) per hpf Ur Squamous Epith Cells (None-Few) per lpf Urine Bacteria (None-Few) per hpf Hyaline Casts (None-Few) per lpf Ur Culture Indicated? (NO) Chlamy pneumoniae PCR (Not Detect) Adenovirus (PCR) (Not Detect) B. pertussis DNA (PCR) (Not Detect) B.parapertussis DNA PCR (Not Detect) Coronavirus OC43 (PCR) (Not Detect) Coronavirus HKU1 (PCR) (Not Detect) Coronavirus 229E (PCR) (Not Detect) Coronavirus NL63 (PCR) (Not Detect) Human Metapneumovir PCR (Not Detect) Influenza A (H1) PCR (Not Detect) Influ A (H1N1/09) PCR (Not Detect) Influenza A (H3) PCR (Not Detect) Influenza A Untype (PCR) (Not Detect) Influenza Type B (PCR) (Not Detect) M.pneumoniae DNA (PCR) (Not Detect) Parainfluenza 1 (PCR) (Not Detect) Parainfluenza 2 (PCR) (Not Detect) Parainfluenza 3 (PCR) (Not Detect) Parainfluenza 4 (PCR) (Not Detect) RSV (PCR) (Not Detect) Entero/Rhino (PCR) (Not Detect) Specimen Rejected 03/26/19 03/26/19 Range/Units 12:24 16:19 WBC (4.3-11.1) K/mcL RBC (3.82-4.97) M/mcL Hgb (11.5-15.4) g/dL Hct (35.3-44.9) % MCV (83.0-100.0) fL MCH (28.0-33.3) pg MCHC (31.6-35.5) g/dL RDW (11.5-14.5) % Plt Count (140-400) K/mcL MPV (9.4-12.4) fL Immature Gran % (0-4) % Seg Neutrophils % % Lymphocytes % % Monocytes % % Eosinophils % % Basophils % % Neutrophils # (1.6-8.9) K/mcL Lymphocytes # (0.6-4.6) K/mcL Monocytes # (0.0-1.3) K/mcL Eosinophils # (0.0-0.6) K/mcL Basophils # (0.0-0.2) K/mcL PT (9.4-12.1) Seconds INR APTT (26.0-36.0) Seconds Sample Site ABG pH (7.32-7.45) pH Units ABG pCO2 (35-45) mmHg ABG pO2 (85-104) mmHg ABG HCO3 (21-27) mEq/L ABG Total CO2 (20-26) mEq/L ABG O2 Saturation (95-98) % ABG Base Excess (-2 to 3) mEq/L Thomas Test O2 Delivery Device Inspired O2 (1-15=lpm [id number]=%) Sodium (136-145) mEq/L Potassium (3.5-5.1) mEq/L Chloride (98-107) mEq/L Carbon Dioxide (23-29) mEq/L BUN (8-23) mg/dL Creatinine (0.60-1.20) mg/dL Est GFR ( Amer) (> 60) Est GFR (Non-Af Amer) (> 60) BUN/Creatinine Ratio (6-26) Glucose (70-105) mg/dL POC Glucose 266 H 255 H (70-99) mg/dL Calculated Osmolality (280-300) Lactic Acid (0.5-2.2) mmol/L Calcium (8.6-10.3) mg/dL Phosphorus (2.7-4.5) mg/dL Magnesium (1.6-2.6) mg/dL Total Bilirubin (0.3-1.0) mg/dL Direct Bilirubin (0.0-0.2) mg/dL Indirect Bilirubin (0.0-1.2) mg/dL AST (13-39) Units/L ALT (7-52) Units/L Alkaline Phosphatase (34-104) Units/L Troponin I (< 0.04) ng/mL Serum Total Protein (6.4-8.9) g/dL Albumin (3.5-5.7) g/dL Globulin (2.4-3.5) g/dL Albumin/Globulin Ratio (1.1-2.2) Lipase (11-82) Units/L Urine Color (Yellow) Urine Clarity (Clear) Urine pH (5.0-8.0) pH Units Ur Specific [place] (1.010-1.025) Urine Protein (Neg-Trace) mg/dL Urine Glucose (UA) (Normal) mg/dL Urine Ketones (Negative) mg/dL Urine Blood (Negative) Urine Nitrite (Negative) Urine Bilirubin (Negative) Urine Urobilinogen (Normal) mg/dL Ur Leukocyte Esterase (Negative) Urine Microscopic RBC (0-3) per hpf Urine Microscopic WBC (0-3) per hpf Ur Squamous Epith Cells (None-Few) per lpf Urine Bacteria (None-Few) per hpf Hyaline Casts (None-Few) per lpf Ur Culture Indicated? (NO) Chlamy pneumoniae PCR (Not Detect) Adenovirus (PCR) (Not Detect) B. pertussis DNA (PCR) (Not Detect) B.parapertussis DNA PCR (Not Detect) Coronavirus OC43 (PCR) (Not Detect) Coronavirus HKU1 (PCR) (Not Detect) Coronavirus 229E (PCR) (Not Detect) Coronavirus NL63 (PCR) (Not Detect) Human Metapneumovir PCR (Not Detect) Influenza A (H1) PCR (Not Detect) Influ A (H1N1/09) PCR (Not Detect) Influenza A (H3) PCR (Not Detect) Influenza A Untype (PCR) (Not Detect) Influenza Type B (PCR) (Not Detect) M.pneumoniae DNA (PCR) (Not Detect) Parainfluenza 1 (PCR) (Not Detect) Parainfluenza 2 (PCR) (Not Detect) Parainfluenza 3 (PCR) (Not Detect) Parainfluenza 4 (PCR) (Not Detect) RSV (PCR) (Not Detect) Entero/Rhino (PCR) (Not Detect) Specimen Rejected Critical Care Time Total Critical Care Time: 30
[2019-03-24] MEDS ORDERED: Albuterol 2.5 MG/3 ML NEBULIZER ONE (05:24)
[2019-03-24] MEDS: Albuterol 2.5 MG/3 ML NEBULIZER IH ONE (05:29)
[2019-03-24] MEDS ORDERED: Naloxone 0.4 MG/ML INJ IVP PRN (06:14)
[2019-03-24] MEDS ORDERED: *HR* Dextrose 50 % in Water (Syg) 50 ML SYRINGE IVP PRN (06:20)
[2019-03-24] MEDS ORDERED: Dextrose Gel 15 GM/37.5 ML TUBE PO PRN ×2 (06:20)
[2019-03-24] MEDS ORDERED: D5% in Water 1,000 ML IVC PRN (06:20)
[2019-03-24] MEDS: Azithromycin 500 MG in D5% in Water 250 ML IVPB SCH (06:47)
--- NOTE | 2019-03-24 07:06 | Internal Med History&Physical ---
Date of Encounter: 03/24/19 Time of Encounter: 05:00 Internal Medicine - H&P: HPI Chief complaint: Shortness of breath, Abdominal Pain Admitted From: Home Plans for Post Hospital Care: Home History of present illness: Ms. Leon is a 63 year old female with past medical history significant for CHF, hypertension, hyperlipidemia, COPD on continuous home 02, diabetes, GERD, anxiety, and depression who presents for complaints of shortness of breath starting yesterday and right sided sharp burning abdominal pain. Reports shortness of breath has persisted despite home breathing treatments and home oxygen. Reports cough with white sputum which she reports as being her baseline. Also complains of right sided abdominal burning/sharp 10/10 abdominal pain that resolved spontaneously once arriving to ER. ER completed a CT of the abdomen/pelvis which showed no acute finding in the abdomen or pelvis, cholelithiasis with several tiny gallstones with no pericholecystic fluid or dilated bile ducts mild sigmoid colon diverticulosis with no evidence of diverticulitis, and unremarkable uterus. ER also obtained xray of the chest which showed no pneumonia or any other acute cardiopulmonary abnormality and COPD. While in ER patient received breathing treatments, Ceftriaxone, and Solu- Medrol which she reports has improved her shortness of breath. While receiving the Ceftriaxone she also reported itching which she states she sometimes has while taking Ceftriaxone but it never causes any other symptoms besides itching. Itching was relieved with Benadryl and Pepcid. Patient currently reports her pain remains resolved and her shortness of breath has significantly improved. Currently denies any headache, chest pain, abdominal pain, nausea, bowel or bladder changes. Checks blood sugars regularly and reports they have been averaging in the low 100's. Follows regularly with PCP, Pulmonary, and Cardiology. Was recently discharged in December 2018 following inpatient stay for COPD exacerbation. Past Med Surg Social Fam HX - Past Medical History Medical history: CHF, COPD, diabetes, GERD, glaucoma, hyperlipidemia, hypertension Additional medical history: angina, anemia 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: anxiety, depression - Past Surgical History Surgical History: cataract, hysterectomy Additional surgical history: polyp removal. cataract extractions - Social History Smoking Status: Former smoker Smokeless Tobacco Status: No Alcohol use: none Drug use: none - Family History Mother Adopted: No Living Status: Hx Family Cardiac Disorders: No Hx Family Respiratory Disorders: No Hx Family Cancer: Yes (Pancreatic cancer) Hx Family GI Disorders: No Hx Family Endocrine Disorder: No Hx Family Neuromuscular Disorders: No Hx Family Neurologic Disorders: No Hx Family HEENT Disorders: No Hx Family Autoimmune Disorders: No Father Living Status: Hx Family Cardiac Disorders: Yes Hx Family Respiratory Disorders: Yes Hx Family Cancer: Yes Hx Family GI Disorders: No Hx Family Endocrine Disorder: Yes (Diabetes) Hx Family Neuromuscular Disorders: No Hx Family Neurologic Disorders: No Hx Family HEENT Disorders: No Hx Family Autoimmune Disorders: No Internal Medicine - H&P: Meds Atorvastatin Calcium [Lipitor] 80 mg PO DAILY 07/14/16 [History] Sertraline [Zoloft] 50 mg PO DAILY 07/15/16 [History] Aspirin Enteric Coated [Aspirin EC] 81 mg PO DAILY 10/22/16 [History] Cyanocobalamin (Vitamin B-12) [Vitamin B-12] 1,000 mcg PO DAILY 10/22/16 [History] Cyclosporine [Restasis] 1 drop BOTH EYES BID 10/22/16 [History] Ferrous Sulfate 325 mg PO DAILY 10/22/16 [History] Furosemide [Lasix] 20 mg PO DAILY 10/22/16 [History] Umeclidinium [place] [Incruse Ellipta] 1 puff IH DAILY 04/01/17 [History] Nitroglycerin 0.4 mg PO Q5M PRN 07/08/17 [History] Ezetimibe [Zetia] 10 mg PO DAILY 09/01/17 [History] Albuterol Neb [Proventil Neb] 2.5 mg IH TID PRN 09/22/17 [History] Loratadine [Claritin] 10 mg PO DAILY #30 tablet 09/26/17 [Rx] Dapagliflozin Propanediol [Farxiga] 5 mg PO DAILY 12/19/17 [History] Budesonide/Formoterol 160/4.5 [Symbicort 160/4.5] 2 puff IH BID 01/19/18 [History] GuaiFENesin ER [Mucinex] 600 mg PO BID PRN tbbp.12hr 03/28/18 [Rx] Latanoprost [Xalatan] 1 drop BOTH EYES HS 06/18/18 [History] Omeprazole [PriLOSEC] 40 mg PO DAILY 06/18/18 [History] Potassium Chloride [K-Tab ER] 20 meq PO DAILY 06/18/18 [History] Roflumilast [Daliresp] 500 mcg PO DAILY 06/18/18 [History] Cholecalciferol (D-3) [Vitamin D] 1,000 unit PO MO 10/03/18 [History] Fluticasone Propionate Nasal [Flonase] 1 spr NS BID 10/03/18 [History] Glimepiride [Amaryl] 1 mg PO DAILY 10/03/18 [History] Albuterol Sulfate [Ventolin Hfa] 2 puff IH Q4-6H PRN 12/20/18 [History] Ammonium Lactate 1 appl TP BID 12/20/18 [History] GuaiFENesin/Dextromethorphan [Robitussin Cough-Chest Dm Liq] 10 ml PO DAILY PRN 12/20/18 [History] Terbinafine HCl 250 mg PO DAILY 12/20/18 [History] Allergy/AdvReac Type Severity Reaction Status Date / Time acetaminophen [From Vicodin] AdvReac Headache Verified 12/20/18 13:03 hydrocodone [From Vicodin] AdvReac UPSET Verified 12/20/18 13:03 STOMACH/VOMITING All Systems PM: A 10-system review of systems was performed and is negative for pertinent findings except as documented above in the HPI. - Constitutional Vitals: Temp Pulse Resp BP Pulse Ox 98.0 F 93 18 91/55 96 03/24/19 03:07 03/24/19 03:07 03/24/19 05:30 03/24/19 03:07 03/24/19 05:30 Exam: General: Alert and oriented. In no acute distress. Skin:Normal color, no rash, no lesions. HEENT:Pupils equal, round and reactive. Cardiovascular:Heart sounds distant, no rubs, murmurs or gallops. No JVD. Pulse regular. Lungs:Breath sounds decreased, wheezes noted. Respirations easy non labored. Abdomen:Soft, non-tender, no rigidity. Extremities:No deformity, no edema or tenderness, no joint swelling or clubbing. Neurological:Normal cognition and motor skills. Pulses:Carotid and radial pulses normal +2. Rest of the physical exam is non contributory. Internal Med - H&P Results - Labs CBC & Chem 7: 03/23/19 20:26 03/23/19 21:12 Labs: Short CBC 03/23/19 Range/Units 20:26 WBC 9.2 (4.3-11.1) K/mcL Hgb 13.2 (11.5-15.4) g/dL Hct 42.2 (35.3-44.9) % Plt Count 215 (140-400) K/mcL Neutrophils # 6.6 (1.6-8.9) K/mcL BMP 03/23/19 21:12 Sodium 136 Potassium 3.7 Chloride 104 Carbon Dioxide 28 BUN 28 H Creatinine 0.96 Glucose 101 Calcium 9.7 Cardiac Enzymes 03/23/19 Range/Units 21:12 Troponin I < 0.03 (< 0.04) ng/mL Liver Function 03/23/19 Range/Units 21:12 Total Bilirubin 0.3 (0.3-1.0) mg/dL Direct Bilirubin 0.0 (0.0-0.2) mg/dL AST 15 (13-39) Units/L ALT 14 (7-52) Units/L Alkaline Phosphatase 43 (34-104) Units/L Albumin 4.3 (3.5-5.7) g/dL Urine 03/23/19 Range/Units 21:05 Urine Color Yellow (Yellow) Urine Clarity Clear (Clear) Urine pH 6.0 (5.0-8.0) pH Units Ur Specific [place] 1.027 H (1.010-1.025) Urine Protein Negative (Neg-Trace) mg/dL Urine Glucose (UA) >=1000 H (Normal) mg/dL - ABG Interpretation ABG results: 03/23/19 20:42 ABG pH 7.38 ABG pCO2 48 H ABG pO2 96 ABG HCO3 28 H ABG Total CO2 30 H ABG O2 Saturation 97 ABG Base Excess 2 - Impressions ITS Impressions Abdomen/Pelvis CT 03/23/19 20:06 IMPRESSION: No acute finding in the abdomen or pelvis. Cholelithiasis. There are several tiny gallstones. There is no pericholecystic fluid. Bile ducts are not dilated. Mild sigmoid colon diverticulosis with no evidence of diverticulitis. There is an unremarkable uterus. History supplied stated prior hysterectomy. Clinical correlation recommended. D/ / Trenton Grimm MD / Trenton Grimm MD Interpreting Provider: Trenton Grimm MD Chest X-Ray 03/23/19 23:39 IMPRESSION: No pneumonia or any other acute cardiopulmonary abnormality. COPD. D/ / Ramy Ruiz / Ramy Ruiz Interpreting Provider: Ramy Ruiz - Assessment and Plan (1) Shortness of breath Current Visit: Yes Status: Acute Assessment and plan: Reports shortness of breath increased from baseline since yesterday despite home breathing treatments. Cough and sputum production reportedly at baseline. Blood gas in ER showed slightly elevated C02, continue plan as stated below, repeat ABG for any signs of worsening respiratory status or confusion. Received Ceftriaxone in ER, had itching associated with it relieved with Benadr yl, reports this is normal for her, will continue same but monitor closely for any signs of allergic reaction. Will also add Azithromycin. Blood and sputum cultures ordered. ER started Solumedrol, will continue same scheduled. ER started Duonebs, will continue same scheduled. Continuous 02 via nasal canula and BIPAP at night and as needed. Reports significant improvement after treatment received in ER, monitor respiratory status closely. (2) COPD exacerbation Current Visit: No Status: Suspected Assessment and plan: Suspected cause of shortness of breath. Plan as stated above. (3) Abdominal pain Current Visit: Yes Status: Acute Assessment and plan: Reports right sided abdominal burning/sharp 10/10 pain that resolved spontaneously once arriving to ER. Pain was not associated with any other symptoms. Remains pain free at this time without intervention. ER completed a CT of the abdomen/pelvis which showed no acute finding in the abdomen or pelvis, cholelithiasis with several tiny gallstones with no pericholecystic fluid or dilated bile ducts mild sigmoid colon diverticulosis with no evidence of diverticulitis, and unremarkable uterus. Pain possibly secondary to gallstones? If pain returns consider further workup and GI consult. Qualifiers: Abdominal location: unspecified location Qualified Code(s): R10.9 - Unspecified abdominal pain (4) Abnormal renal function Current Visit: Yes Status: Acute Assessment and plan: BUN slightly increased at 28 and GFR slightly decreased at 58, creatinine within normal limits. Repeats labs ordered. (5) Diabetes mellitus Current Visit: Yes Status: Chronic Assessment and plan: Hold home medications. Sliding scale insulin ordered. Accuchecks ACHS. Qualifiers: Diabetes mellitus type: type 2 Qualified Code(s): E11.9 - Type 2 diabetes mellitus without complications - Time Spent With Patient Total time spent is greater than 50% in coordination of care (as documented) at patient's floor/unit and/or counseling patient:
[2019-03-24 07:46] LABS: Basophils % 0.4 %; Hematocrit 42.7 % (35.3-44.9); Hemoglobin 13.3 g/dL (11.5-15.4); Immature Granulocytes % 0.3 % (0-4); Lymphocytes # 0.3 K/mcL (0.6-4.6); Mean Corpuscular HGB Conc 31.1 g/dL (31.6-35.5); Mean Corpuscular Hemoglobin 27.7 pg (28.0-33.3); Mean Platelet Volume 9.4 fL (9.4-12.4); Monocytes # 0.1 K/mcL (0.0-1.3); Monocytes % 0.6 %; Neutrophils # 7.4 K/mcL (1.6-8.9); Platelet Count 223 K/mcL (140-400); Red Cell Distribution Width 13.9 % (11.5-14.5); Segmented Neutrophils % 94.7 %; White Blood Count 7.8 K/mcL (4.3-11.1)
[2019-03-24] MEDS: Ipratropium/Albuterol Neb 3 ML IH SCH ×4 (07:57→20:24)
[2019-03-24 07:58] LABS: BUN/Creatinine Ratio 32 (6-26); Blood Urea Nitrogen 22 mg/dL (8-23); Calcium 9.6 mg/dL (8.6-10.3); Carbon Dioxide 27 mEq/L (23-29); Chloride 103 mEq/L (98-107); Glucose 213 mg/dL (70-105); Osmolality,Calculated 292 (280-300); Potassium 4.2 mEq/L (3.5-5.1); Sodium 136 mEq/L (136-145); eGFR For African Americans > 60 (> 60); eGFR For Non-African Americans > 60 (> 60)
[2019-03-24] MEDS ORDERED: GuaiFENesin Liq 200 MG/10 ML UDC PO PRN (08:01)
[2019-03-24] MEDS: Insulin LISPRO 300 UNITS/3 ML VIAL SQ SCH ×4 (08:58→19:57)
[2019-03-24] MEDS: MethylPREDNISolone 40 MG/ML VIAL IVP SCH ×2 (08:58→17:52)
--- NOTE | 2019-03-24 10:05 | Event Note ---
Date of Encounter: 03/24/19 Time of Encounter: 10:04 Ms. Leon is a 63 year old female with past medical history significant for CHF, hypertension, hyperlipidemia, COPD on continuous home 02, diabetes, GERD, anxiety, and depression who presents for complaints of shortness of breath starting yesterday and right sided sharp burning abdominal pain. CT abdomen showed small gallstone without acute cholecystitis or other acute abnormalities. ABG showed mild elevated PCO2 with normal pH. We will continue current treatment for COPD including IV antibiotics, IV steroids, and bronchodilators. Continue monitor patient's symptoms.
[2019-03-24] MEDS: Cyanocobalamin (B-12) 1,000 MCG TABLET PO SCH (10:25)
[2019-03-24] MEDS: Aspirin Enteric Coated 81 MG Tablet PO SCH (10:25)
[2019-03-24] MEDS: Loratadine 10 MG TABLET PO SCH (10:26)
[2019-03-24] MEDS: Furosemide 20 MG TABLET PO SCH (10:26)
[2019-03-24] MEDS: Budesonide/Formoterol 160/4.5 1 PUFF INH IH SCH ×2 (11:14→20:24)
[2019-03-24] MEDS: Fluticasone Propionate Nasal 50 MCG/SPRAY BOTTLE NS SCH ×2 (11:48→20:01)
[2019-03-24] MEDS: Ammonium Lactate 30 APPL/225 GM BOTTLE TP SCH ×2 (11:48→21:36)
[2019-03-24] MEDS: Terbinafine Hcl 250 MG PO SCH (11:49)
[2019-03-24] MEDS: Cyclosporine [Restasis] 1 DROP OP SCH ×3 (11:49→19:59)
[2019-03-24] MEDS: Roflumilast [Daliresp] 500 MCG PO SCH (11:49)
[2019-03-24] MEDS: Umeclidinium Bromide [Incruse Ellipta] 1 PUFF IH SCH (11:50)
--- NOTE | 2019-03-24 13:45 | Electrocardiograph Report ---
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
[2019-03-24] MEDS: *HR* Heparin 5,000 UNIT/ML VIAL SQ SCH (19:21)
[2019-03-24] MEDS ORDERED: Ibuprofen 400 MG TABLET PO ONE (19:45)
[2019-03-24] MEDS: cefTRIAXone 2,000 MG in Water for inj. (sterile) 20 ML IVP SCH (20:08)
[2019-03-24] MEDS: Latanoprost 2.5 ML BOTTLE BOTH EYES SCH (21:36)
[2019-03-25] MEDS: Ipratropium/Albuterol Neb 3 ML IH SCH ×7 (00:08→23:56)
[2019-03-25] MEDS: MethylPREDNISolone 40 MG/ML VIAL IVP SCH ×3 (00:24→17:29)
[2019-03-25 03:49] LABS: Hematocrit 38.8 % (35.3-44.9); Hemoglobin 12.3 g/dL (11.5-15.4); Mean Corpuscular HGB Conc 31.7 g/dL (31.6-35.5); Mean Corpuscular Hemoglobin 27.8 pg (28.0-33.3); Mean Corpuscular Volume 87.8 fL (83.0-100.0); Mean Platelet Volume 9.4 fL (9.4-12.4); Platelet Count 222 K/mcL (140-400); Red Blood Count 4.42 M/mcL (3.82-4.97); Red Cell Distribution Width 14.2 % (11.5-14.5); White Blood Count 10.9 K/mcL (4.3-11.1)
[2019-03-25 04:04] LABS: BUN/Creatinine Ratio 29 (6-26); Blood Urea Nitrogen 22 mg/dL (8-23); Calcium 9.5 mg/dL (8.6-10.3); Carbon Dioxide 26 mEq/L (23-29); Chloride 105 mEq/L (98-107); Glucose 244 mg/dL (70-105); Osmolality,Calculated 297 (280-300); Potassium 4.2 mEq/L (3.5-5.1); Sodium 138 mEq/L (136-145); eGFR For African Americans > 60 (> 60); eGFR For Non-African Americans > 60 (> 60)
[2019-03-25] MEDS: *HR* Heparin 5,000 UNIT/ML VIAL SQ SCH ×2 (04:56→17:29)
[2019-03-25] MEDS: Azithromycin 500 MG in D5% in Water 250 ML IVPB SCH ×2 (06:06→09:32)
[2019-03-25] MEDS: Budesonide/Formoterol 160/4.5 1 PUFF INH IH SCH ×2 (07:35→19:55)
--- NOTE | 2019-03-25 08:55 | Internal Med Progress Note ---
Hospitalist Progress Note - Encounter Date of Encounter: 03/25/19 Time of Encounter: 08:52 - Subjective Interval History: Ms. Leon is a 63 year old female with past medical history significant for CHF, hypertension, hyperlipidemia, COPD on continuous home 02, diabetes, GERD, anxiety, and depression who presents for complaints of shortness of breath st arting yesterday and right sided sharp burning abdominal pain. CT abdomen showed small gallstone without acute cholecystitis or other acute abnormalities. ABG showed mild elevated PCO2 with normal pH. IV antibiotics, IV steroids, and bronchodilators were started. Patient reported cough with yellowish mucus overnight. Still having shortness of breath frequently. But she reported absence of fever, chills, or night sweats. - Exam Vitals: Temp Pulse Resp BP Pulse Ox 98.1 F 110 19 129/73 95 03/25/19 08:29 03/25/19 08:29 03/25/19 08:29 03/25/19 08:29 03/25/19 08:29 Exam: General: Alert and oriented. In no acute distress. Skin:Normal color, no rash, no lesions. HEENT:Pupils equal, round and reactive. Cardiovascular:Heart sounds distant, no rubs, murmurs or gallops. No JVD. Pulse regular. Lungs:Breath sounds decreased, wheezes noted. Respirations easy non labored. Abdomen:Soft, non-tender, no rigidity. Extremities:No deformity, no edema or tenderness, no joint swelling or clubbing. Neurological:Normal cognition and motor skills. Pulses:Carotid and radial pulses normal +2. Rest of the physical exam is non contributory. - Assessment and Plan (1) Shortness of breath Current Visit: Yes Status: Acute Assessment and Plan: 03/24 Reports shortness of breath increased from baseline since yesterday despite home breathing treatments. Cough and sputum production reportedly at baseline. Blood gas in ER showed slightly elevated C02, continue plan as stated below, repeat ABG for any signs of worsening respiratory status or confusion. Received Ceftriaxone in ER, had itching associated with it relieved with Benadryl, reports this is normal for her, will continue same but monitor closely for any signs of allergic reaction. Will also add Azithromycin. Blood and sputum cultures ordered. ER started Solumedrol, will continue same scheduled. ER started Duonebs, will continue same scheduled. Continuous 02 via nasal canula and BIPAP at night and as needed. Reports significant improvement after treatment received in ER, monitor respiratory status closely. 03/25 Chest x-ray has no signs of infection. Respiratory panel ordered. Blood culture has no growth so far. We will continue IV azithromycin and Rocephin. Continue IV steroids and bronchodilators, monitor patient respiratory symptoms. Change Mucinex to scheduled dose. Encourage patient to ambulate. (2) COPD exacerbation Current Visit: No Status: Acute Assessment and Plan: Suspected cause of shortness of breath. Plan as stated above. (3) Abdominal pain Current Visit: Yes Status: Acute Assessment and Plan: 03/24 Reports right sided abdominal burning/sharp 10/10 pain that resolved spontaneously once arriving to ER. Pain was not associated with any other symptoms. Remains pain free at this time without intervention. ER completed a CT of the abdomen/pelvis which showed no acute finding in the abdomen or pelvis, cholelithiasis with several tiny gallstones with no pericholecystic fluid or dilated bile ducts mild sigmoid colon diverticulosis with no evidence of diverticulitis, and unremarkable uterus. Pain possibly secondary to gallstones? If pain returns consider further workup and GI consult. 03/25 Patient reported improved abdominal pain. (4) Diabetes mellitus Current Visit: Yes Status: Chronic Assessment and Plan: Hold home medications. Sliding scale insulin ordered. Accuchecks ACHS. (5) Abnormal renal function Current Visit: Yes Status: Resolved DVT Prophylaxis: Heparin subcutaneous. - Time Spent with Patient Total time spent is greater than 50% in coordination of care (as documented) at patient's floor/unit and/or counseling patient: Greater than 35 minutes Plan of Care Discussed with: patient Internal Medicine: Result - Labs CBC & Chem 7: 03/25/19 03:22 03/25/19 03:22 Labs: Short CBC 03/25/19 Range/Units 03:22 WBC 10.9 (4.3-11.1) K/mcL Hgb 12.3 (11.5-15.4) g/dL Hct 38.8 (35.3-44.9) % Plt Count 222 (140-400) K/mcL BMP 03/25/19 03:22 Sodium 138 Potassium 4.2 Chloride 105 Carbon Dioxide 26 BUN 22 Creatinine 0.77 Glucose 244 H Calcium 9.5 - ABG Interpretation ABG results: ABG ABG pH 7.38 pH Units (7.32-7.45) 03/23/19 20:42 ABG pCO2 48 mmHg (35-45) H 03/23/19 20:42 ABG pO2 96 mmHg (85-104) 03/23/19 20:42 ABG O2 Saturation 97 % (95-98) 03/23/19 20:42 PT/INR, D-dimer PT 11.7 Seconds (9.4-12.1) 03/23/19 20:26 Consult Discharge Plan - Plan Referrals: Ray Garcia MD [Primary Care Provider] - (3) Abdominal pain Qualifiers: Abdominal location: unspecified location Qualified Code(s): R10.9 - Unspecified abdominal pain (4) Diabetes mellitus Qualifiers: Diabetes mellitus type: type 2 Qualified Code(s): E11.9 - Type 2 diabetes me llitus without complications
[2019-03-25] MEDS: Fluticasone Propionate Nasal 50 MCG/SPRAY BOTTLE NS SCH ×2 (09:30→21:38)
[2019-03-25] MEDS: Insulin LISPRO 300 UNITS/3 ML VIAL SQ SCH ×4 (09:32→21:56)
[2019-03-25] MEDS: Loratadine 10 MG TABLET PO SCH (09:33)
[2019-03-25] MEDS: Cyanocobalamin (B-12) 1,000 MCG TABLET PO SCH (09:33)
[2019-03-25] MEDS: Furosemide 20 MG TABLET PO SCH (09:33)
[2019-03-25] MEDS: Ammonium Lactate 30 APPL/225 GM BOTTLE TP SCH ×2 (09:34→23:11)
[2019-03-25] MEDS: Cyclosporine [Restasis] 1 DROP OP SCH ×2 (09:34→21:39)
[2019-03-25] MEDS: Aspirin Enteric Coated 81 MG Tablet PO SCH (09:34)
[2019-03-25] MEDS: Terbinafine Hcl 250 MG PO SCH (09:35)
[2019-03-25] MEDS: Umeclidinium Bromide [Incruse Ellipta] 1 PUFF IH SCH (09:35)
[2019-03-25] MEDS: Roflumilast [Daliresp] 500 MCG PO SCH (09:35)
[2019-03-25 15:38] LABS: Adenovirus Not Detected (Not Detect); Bordetella Pertussis Not Detected (Not Detect); Chlamydophila pneumoniae Not Detected (Not Detect); Coronavirus 229E Not Detected (Not Detect); Coronavirus HKU1 Not Detected (Not Detect); Coronavirus NL63 Not Detected (Not Detect); Coronavirus OC43 Not Detected (Not Detect); Human Metapneumovirus Not Detected (Not Detect); Human Rhinovirus/Enterovirus Not Detected (Not Detect); Influenza A Subtype 2009 H1 Not Detected (Not Detect); Influenza A Untypeable Not Detected (Not Detect); Influenza B Not Detected (Not Detect); Mycoplasma pneumoniae Not Detected (Not Detect); Parainfluenza Virus 1 Not Detected (Not Detect); Parainfluenza Virus 2 Not Detected (Not Detect); Parainfluenza Virus 3 Not Detected (Not Detect); Parainfluenza Virus 4 Not Detected (Not Detect); Respiratory Syncytial Virus Not Detected (Not Detect)
[2019-03-25] MEDS: cefTRIAXone 2,000 MG in Water for inj. (sterile) 20 ML IVP SCH (21:39)
[2019-03-25] MEDS: Latanoprost 2.5 ML BOTTLE BOTH EYES SCH (23:11)
[2019-03-26] MEDS: MethylPREDNISolone 40 MG/ML VIAL IVP SCH ×2 (00:36→08:00)
[2019-03-26] MEDS: Ipratropium/Albuterol Neb 3 ML IH SCH ×5 (04:35→20:46)
[2019-03-26] MEDS: Azithromycin 500 MG in D5% in Water 250 ML IVPB SCH (06:14)
[2019-03-26] MEDS: *HR* Heparin 5,000 UNIT/ML VIAL SQ SCH ×2 (06:15→17:56)
[2019-03-26] MEDS: Tiotropium 18 MCG inhalation IH SCH (07:57)
[2019-03-26] MEDS: Budesonide/Formoterol 160/4.5 1 PUFF INH IH SCH ×2 (07:57→20:46)
[2019-03-26] MEDS: Cyanocobalamin (B-12) 1,000 MCG TABLET PO SCH (07:59)
[2019-03-26] MEDS: Cyclosporine [Restasis] 1 DROP OP SCH ×2 (07:59→20:53)
[2019-03-26] MEDS: Loratadine 10 MG TABLET PO SCH (07:59)
[2019-03-26] MEDS: Fluticasone Propionate Nasal 50 MCG/SPRAY BOTTLE NS SCH ×2 (08:00→20:52)
[2019-03-26] MEDS: Furosemide 20 MG TABLET PO SCH (08:00)
[2019-03-26] MEDS: Ammonium Lactate 30 APPL/225 GM BOTTLE TP SCH ×2 (08:00→20:52)
[2019-03-26] MEDS: Aspirin Enteric Coated 81 MG Tablet PO SCH (08:00)
[2019-03-26] MEDS: Insulin LISPRO 300 UNITS/3 ML VIAL SQ SCH ×4 (08:10→20:54)
--- NOTE | 2019-03-26 09:40 | Internal Med Progress Note ---
Hospitalist Progress Note - Encounter Date of Encounter: 03/26/19 Time of Encounter: 09:38 - Subjective Interval History: Ms. Leon is a 63 year old female with past medical history significant for CHF, hypertension, hyperlipidemia, COPD on continuous home 02, diabetes, GERD, anxiety, and depression who presents for complaints of shortness of breath st arting yesterday and right sided sharp burning abdominal pain. CT abdomen showed small gallstone without acute cholecystitis or other acute abnormalities. ABG showed mild elevated PCO2 with normal pH. IV antibiotics, IV steroids, and bronchodilators were started. Patient reported cough with yellowish mucus overnight. Still having shortness of breath frequently. But she reported absence of fever, chills, or night sweats. Because of severe respiratory symptoms, patient requires extended hos pitalization. - Exam Vitals: Temp Pulse Resp BP Pulse Ox 98.1 F 94 20 125/74 98 03/26/19 07:54 03/26/19 07:54 03/26/19 07:57 03/26/19 07:54 03/26/19 07:57 Exam: General: Alert and oriented. In no acute distress. Skin:Normal color, no rash, no lesions. HEENT:Pupils equal, round and reactive. Cardiovascular:Heart sounds distant, no rubs, murmurs or gallops. No JVD. Pulse regular. Lungs:Breath sounds decreased, wheezes noted. Respirations easy non labored. Abdomen:Soft, non-tender, no rigidity. Extremities:No deformity, no edema or tenderness, no joint swelling or clubbing. Neurological:Normal cognition and motor skills. Pulses:Carotid and radial pulses normal +2. Rest of the physical exam is non contributory. - Assessment and Plan (1) Shortness of breath Current Visit: Yes Status: Acute Assessment and Plan: 03/24 Reports shortness of breath increased from baseline since yesterday despite home breathing treatments. Cough and sputum production reportedly at baseline. Blood gas in ER showed slightly elevated C02, continue plan as stated below, repeat ABG for any signs of worsening respiratory status or confusion. Received Ceftriaxone in ER, had itching associated with it relieved with Benadryl, reports this is normal for her, will continue same but monitor closely for any signs of allergic reaction. Will also add Azithromycin. Blood and sputum cultures ordered. ER started Solumedrol, will continue same scheduled. ER started Duonebs, will continue same scheduled. Continuous 02 via nasal canula and BIPAP at night and as needed. Reports significant improvement after treatment received in ER, monitor respiratory status closely. 03/25 Chest x-ray has no signs of infection. Respiratory panel ordered. Blood culture has no growth so far. We will continue IV azithromycin and Rocephin. Continue IV steroids and bronchodilators, monitor patient respiratory symptoms. Change Mucinex to scheduled dose. Encourage patient to ambulate. 03/26 Overall, respiratory symptoms are improving, however, patient still reported frequent shortness of breath and a cough. She needs to stay in the hospital for more treatment. Negative respiratory panel. Afebrile, normal WBC. Blood culture has no growth so far. IV antibiotics discontinued, started patient on doxycycline oral. IV steroids changed to oral prednisone. Continue bronchodilators. Encouraged ambulation. (2) COPD exacerbation Current Visit: No Status: Acute Assessment and Plan: Plan as stated above. (3) Abdominal pain Current Visit: Yes Status: Acute Assessment and Plan: 03/24 Reports right sided abdominal burning/sharp 10/10 pain that resolved spontaneously once arriving to ER. Pain was not associated with any other sym ptoms. Remains pain free at this time without intervention. ER completed a CT of the abdomen/pelvis which showed no acute finding in the abdomen or pelvis, cholelithiasis with several tiny gallstones with no pericholecystic fluid or dilated bile ducts mild sigmoid colon diverticulosis with no evidence of diverticulitis, and unremarkable uterus. Pain possibly secondary to gallstones? If pain returns consider further workup and GI consult. 03/25 Patient reported improved abdominal pain. 03/26 Abdominal pain resolved. (4) Diabetes mellitus Current Visit: No Status: Chronic Assessment and Plan: Hold home medications. Continue Sliding scale insulin. Accuchecks ACHS. (5) Abnormal renal function Current Visit: Yes Status: Resolved DVT Prophylaxis: Heparin subcutaneous. - Time Spent with Patient Total time spent is greater than 50% in coordination of care (as documented) at patient's floor/unit and/or counseling patient: Greater than 35 minutes Plan of Care Discussed with: patient Internal Medicine: Result - Labs CBC & Chem 7: 03/25/19 03:22 03/25/19 03:22 - ABG Interpretation ABG results: ABG ABG pH 7.38 pH Units (7.32-7.45) 03/23/19 20:42 ABG pCO2 48 mmHg (35-45) H 03/23/19 20:42 ABG pO2 96 mmHg (85-104) 03/23/19 20:42 ABG O2 Saturation 97 % (95-98) 03/23/19 20:42 PT/INR, D-dimer PT 11.7 Seconds (9.4-12.1) 03/23/19 20:26 Consult Discharge Plan - Plan Referrals: Ray Garcia MD [Primary Care Provider] - (3) Abdominal pain Qualifiers: Abdominal location: unspecified location Qualified Code(s): R10.9 - Unspecified abdominal pain (4) Diabetes mellitus Qualifiers: Diabetes mellitus type: type 2 Diabetes mellitus fci insulin use: with fci use Diabetes mellitus complication status: without complication Qualified Code(s): E11.9 - Type 2 diabetes mellitus without complications; Z79.4 - nursing home (current) use of insulin
[2019-03-26] MEDS: Doxycycline 100 MG CAPSULE PO SCH (20:52)
[2019-03-26] MEDS: Latanoprost 2.5 ML BOTTLE BOTH EYES SCH (20:52)
[2019-03-27] MEDS: Ipratropium/Albuterol Neb 3 ML IH SCH ×7 (00:11→23:23)
[2019-03-27 02:29] LABS: Basophils % 0.2 %; Eosinophils % 0.2 %; Hematocrit 40.4 % (35.3-44.9); Hemoglobin 12.8 g/dL (11.5-15.4); Immature Granulocytes % 0.7 % (0-4); Lymphocytes # 2.1 K/mcL (0.6-4.6); Lymphocytes % 15.7 %; Mean Corpuscular HGB Conc 31.7 g/dL (31.6-35.5); Mean Corpuscular Hemoglobin 27.8 pg (28.0-33.3); Mean Corpuscular Volume 87.8 fL (83.0-100.0); Mean Platelet Volume 9.4 fL (9.4-12.4); Monocytes # 1.2 K/mcL (0.0-1.3); Monocytes % 8.8 %; Neutrophils # 9.9 K/mcL (1.6-8.9); Platelet Count 224 K/mcL (140-400); Red Cell Distribution Width 14.5 % (11.5-14.5); Segmented Neutrophils % 74.4 %; White Blood Count 13.3 K/mcL (4.3-11.1)
[2019-03-27 02:49] LABS: BUN/Creatinine Ratio 38 (6-26); Blood Urea Nitrogen 23 mg/dL (8-23); Calcium 9.3 mg/dL (8.6-10.3); Carbon Dioxide 31 mEq/L (23-29); Chloride 102 mEq/L (98-107); Glucose 125 mg/dL (70-105); Osmolality,Calculated 293 (280-300); Potassium 3.8 mEq/L (3.5-5.1); Sodium 139 mEq/L (136-145); eGFR For African Americans > 60 (> 60); eGFR For Non-African Americans > 60 (> 60)
[2019-03-27] MEDS: *HR* Heparin 5,000 UNIT/ML VIAL SQ SCH ×2 (06:03→17:15)
[2019-03-27] MEDS: Budesonide/Formoterol 160/4.5 1 PUFF INH IH SCH ×2 (08:03→20:44)
[2019-03-27] MEDS: Tiotropium 18 MCG inhalation IH SCH (08:07)
[2019-03-27] MEDS: Insulin LISPRO 300 UNITS/3 ML VIAL SQ SCH ×4 (08:43→21:13)
[2019-03-27] MEDS: Fluticasone Propionate Nasal 50 MCG/SPRAY BOTTLE NS SCH ×2 (08:46→21:13)
[2019-03-27] MEDS: Loratadine 10 MG TABLET PO SCH (08:47)
[2019-03-27] MEDS: Doxycycline 100 MG CAPSULE PO SCH ×2 (08:47→21:12)
[2019-03-27] MEDS: Aspirin Enteric Coated 81 MG Tablet PO SCH (08:47)
[2019-03-27] MEDS: Cyanocobalamin (B-12) 1,000 MCG TABLET PO SCH (08:47)
[2019-03-27] MEDS: Furosemide 20 MG TABLET PO SCH (08:47)
[2019-03-27] MEDS: predniSONE 20 MG TABLET PO SCH (08:47)
[2019-03-27] MEDS: Cyclosporine [Restasis] 1 DROP OP SCH ×2 (08:48→21:14)
[2019-03-27] MEDS: Ammonium Lactate 30 APPL/225 GM BOTTLE TP SCH ×2 (08:51→21:13)
--- NOTE | 2019-03-27 09:26 | Internal Med Progress Note ---
Hospitalist Progress Note - Encounter Date of Encounter: 03/27/19 Time of Encounter: 09:24 - Subjective Interval History: Ms. Leon is a 63 year old female with past medical history significant for CHF, hypertension, hyperlipidemia, COPD on continuous home 02, diabetes, GERD, anxiety, and depression who presents for complaints of shortness of breath st arting yesterday and right sided sharp burning abdominal pain. CT abdomen showed small gallstone without acute cholecystitis or other acute abnormalities. ABG showed mild elevated PCO2 with normal pH. IV antibiotics, IV steroids, and bronchodilators were started. Patient reported cough with yellowish mucus overnight. Still having shortness of breath frequently. But she reported absence of fever, chills, or night sweats. Because of severe respiratory symptoms, patient requires extended hos pitalization. - Exam Vitals: Temp Pulse Resp BP Pulse Ox 98.2 F 94 18 106/71 95 03/27/19 08:06 03/27/19 08:06 03/27/19 08:06 03/27/19 08:06 03/27/19 08:06 Exam: General: Alert and oriented. In no acute distress. Skin:Normal color, no rash, no lesions. HEENT:Pupils equal, round and reactive. Cardiovascular:Heart sounds distant, no rubs, murmurs or gallops. No JVD. Pulse regular. Lungs:Breath sounds decreased, wheezes noted. Respirations easy non labored. Abdomen:Soft, non-tender, no rigidity. Extremities:No deformity, no edema or tenderness, no joint swelling or clubbing. Neurological:Normal cognition and motor skills. Pulses:Carotid and radial pulses normal +2. Rest of the physical exam is non contributory. - Assessment and Plan (1) Shortness of breath Current Visit: Yes Status: Acute Assessment and Plan: 03/24 Reports shortness of breath increased from baseline since yesterday despite home breathing treatments. Cough and sputum production reportedly at baseline. Blood gas in ER showed slightly elevated C02, continue plan as stated below, repeat ABG for any signs of worsening respiratory status or confusion. Received Ceftriaxone in ER, had itching associated with it relieved with Benadryl, reports this is normal for her, will continue same but monitor closely for any signs of allergic reaction. Will also add Azithromycin. Blood and sputum cultures ordered. ER started Solumedrol, will continue same scheduled. ER started Duonebs, will continue same scheduled. Continuous 02 via nasal canula and BIPAP at night and as needed. Reports significant improvement after treatment received in ER, monitor respiratory status closely. 03/25 Chest x-ray has no signs of infection. Respiratory panel ordered. Blood culture has no growth so far. We will continue IV azithromycin and Rocephin. Continue IV steroids and bronchodilators, monitor patient respiratory symptoms. Change Mucinex to scheduled dose. Encourage patient to ambulate. 03/26 Overall, respiratory symptoms are improving, however, patient still reported frequent shortness of breath and a cough. She needs to stay in the hospital for more treatment. Negative respiratory panel. Afebrile, normal WBC. Blood culture has no growth so far. IV antibiotics discontinued, started patient on doxycycline oral. IV steroids changed to oral prednisone. Continue bronchodilators. Encouraged ambulation. 03/27 Overall symptoms have significantly improved, however still have lingering cough and shortness of breath. And tinea current treatment. Anticipate discharge in the morning. (2) COPD exacerbation Current Visit: No Status: Acute Assessment and Plan: Plan as stated above. (3) Abdominal pain Current Visit: Yes Status: Resolved Assessment and Plan: 03/24 Reports right sided abdominal burning/sharp / pain that resolved spontaneously once arriving to ER. Pain was not associated with any other symptoms. Remains pain free at this time without intervention. ER completed a CT of the abdomen/pelvis which showed no acute finding in the abdomen or pelvis, cholelithiasis with several tiny gallstones with no pericholecystic fluid or dilated bile ducts mild sigmoid colon diverticulosis with no evidence of diverticulitis, and unremarkable uterus. Pain possibly secondary to gallstones? If pain returns consider further workup and GI consult. 03/25 Patient reported improved abdominal pain. 03/26 Abdominal pain resolved. (4) Diabetes mellitus Current Visit: No Status: Chronic Assessment and Plan: Hold home medications. Continue Sliding scale insulin. Accuchecks ACHS. (5) Abnormal renal function Current Visit: Yes Status: Resolved Assessment and Plan: BUN slightly increased at 28 and GFR slightly decreased at 58, creatinine within normal limits. Repeats labs ordered. DVT Prophylaxis: Heparin subcutaneous. - Time Spent with Patient Total time spent is greater than 50% in coordination of care (as documented) at patient's floor/unit and/or counseling patient: Greater than 35 minutes Plan of Care Discussed with: patient Internal Medicine: Result - Labs CBC & Chem 7: 03/27/19 02:13 03/27/19 02:13 Labs: Short CBC 03/27/19 Range/Units 02:13 WBC 13.3 H (4.3-11.1) K/mcL Hgb 12.8 (11.5-15.4) g/dL Hct 40.4 (35.3-44.9) % Plt Count 224 (140-400) K/mcL Neutrophils # 9.9 H (1.6-8.9) K/mcL BMP 03/27/19 02:13 Sodium 139 Potassium 3.8 Chloride 102 Carbon Dioxide 31 H BUN 23 Creatinine 0.61 Glucose 125 H Calcium 9.3 - ABG Interpretation ABG results: ABG ABG pH 7.38 pH Units (7.32-7.45) 03/23/19 20:42 ABG pCO2 48 mmHg (35-45) H 03/23/19 20:42 ABG pO2 96 mmHg (85-104) 03/23/19 20:42 ABG O2 Saturation 97 % (95-98) 03/23/19 20:42 PT/INR, D-dimer PT 11.7 Seconds (9.4-12.1) 03/23/19 20:26 Consult Discharge Plan - Plan Referrals: Rya Garcia MD [Primary Care Provider] - (3) Abdominal pain Qualifiers: Abdominal location: unspecified location Qualified Code(s): R10.9 - Uns pecified abdominal pain (4) Diabetes mellitus Qualifiers: Diabetes mellitus type: type 2 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
[2019-03-27] MEDS: Latanoprost 2.5 ML BOTTLE BOTH EYES SCH (21:13)
[2019-03-28] MEDS: Ipratropium/Albuterol Neb 3 ML IH SCH ×3 (04:16→11:35)
[2019-03-28] MEDS: *HR* Heparin 5,000 UNIT/ML VIAL SQ SCH (05:44)
[2019-03-28 05:52] LABS: Hematocrit 42.3 % (35.3-44.9); Hemoglobin 13.4 g/dL (11.5-15.4); Mean Corpuscular HGB Conc 31.7 g/dL (31.6-35.5); Mean Corpuscular Hemoglobin 27.6 pg (28.0-33.3); Mean Corpuscular Volume 87.2 fL (83.0-100.0); Mean Platelet Volume 9.9 fL (9.4-12.4); Platelet Count 240 K/mcL (140-400); Red Blood Count 4.85 M/mcL (3.82-4.97); Red Cell Distribution Width 14.3 % (11.5-14.5); White Blood Count 11.5 K/mcL (4.3-11.1)
[2019-03-28 06:09] LABS: BUN/Creatinine Ratio 35 (6-26); Blood Urea Nitrogen 24 mg/dL (8-23); Calcium 9.8 mg/dL (8.6-10.3); Carbon Dioxide 34 mEq/L (23-29); Chloride 97 mEq/L (98-107); Glucose 175 mg/dL (70-105); Osmolality,Calculated 296 (280-300); Potassium 4.3 mEq/L (3.5-5.1); Sodium 139 mEq/L (136-145); eGFR For African Americans > 60 (> 60); eGFR For Non-African Americans > 60 (> 60)
[2019-03-28 07:36] VITALS: BP 102/67
[2019-03-28] MEDS: Budesonide/Formoterol 160/4.5 1 PUFF INH IH SCH (07:47)
[2019-03-28] MEDS: Tiotropium 18 MCG inhalation IH SCH (07:48)
[2019-03-28] MEDS: Insulin LISPRO 300 UNITS/3 ML VIAL SQ SCH (07:56)
[2019-03-28] MEDS: Doxycycline 100 MG CAPSULE PO SCH (09:33)
[2019-03-28] MEDS: Furosemide 20 MG TABLET PO SCH (09:33)
[2019-03-28] MEDS: Cyanocobalamin (B-12) 1,000 MCG TABLET PO SCH (09:34)
[2019-03-28] MEDS: Aspirin Enteric Coated 81 MG Tablet PO SCH (09:34)
[2019-03-28] MEDS: Loratadine 10 MG TABLET PO SCH (09:34)
--- NOTE | 2019-03-28 09:37 | Discharge Summary ---
- NOTES TO OUTPATIENT PROVIDER Notes to Outpatient Provider: f/u with PCP within 2 weeks. Orders not resulted at time of discharge: Pending orders 03/23/19 20:26 Culture,Blood [BC] Stat 03/24/19 06:17 Culture,Sputum with Gram Stain [] Routine Date of Encounter: 03/28/19 Time of Encounter: 09:32 - Discharge Diagnosis (1) Shortness of breath Priority: Primary Status: Acute Assessment and Plan: 8 Reports shortness of breath increased from baseline since yesterday despite home breathing treatments. Cough and sputum production reportedly at baseline. Blood gas in ER showed slightly elevated C02, continue plan as stated below, repeat ABG for any signs of worsening respiratory status or confusion. Received Ceftriaxone in ER, had itching associated with it relieved with Benadryl, reports this is normal for her, will continue same but monitor closely for any signs of allergic reaction. Will also add Azithromycin. Blood and sputum cultures ordered. ER started Solumedrol, will continue same scheduled. ER started Duonebs, will continue same scheduled. Continuous 02 via nasal canula and BIPAP at night and as needed. Reports significant improvement after treatment received in ER, monitor respiratory status closely. 03/25 Chest x-ray has no signs of infection. Respiratory panel ordered. Blood culture has no growth so far. We will continue IV azithromycin and Rocephin. Continue IV steroids and bronchodilators, monitor patient respiratory symptoms. Change Mucinex to scheduled dose. Encourage patient to ambulate. 03/26 Overall, respiratory symptoms are improving, however, patient still reported frequent shortness of breath and a cough. She needs to stay in the hospital for more treatment. Negative respiratory panel. Afebrile, normal WBC. Blood culture has no growth so far. IV antibiotics discontinued, started patient on doxycycline oral. IV steroids changed to oral prednisone. Continue bronchodilators. Encouraged ambulation. 03/27 Overall symptoms have significantly improved, however still have lingering cough and shortness of breath. And tinea current treatment. Anticipate discharge in the morning. (2) COPD exacerbation Priority: Primary Status: Acute Assessment and Plan: Plan as stated above. (3) Abdominal pain Priority: Primary Status: Resolved Assessment and Plan: 8/ Reports right sided abdominal burning/sharp /10 pain that resolved spontaneously once arriving to ER. Pain was not associated with any other symptoms. Remains pain free at this time without intervention. ER completed a CT of the abdomen/pelvis which showed no acute finding in the abdomen or pelvis, cholelithiasis with several tiny gallstones with no pericholecystic fluid or dilated bile ducts mild sigmoid colon diverticulosis with no evidence of diverticulitis, and unremarkable uterus. Pain possibly secondary to gallstones? If pain returns consider further workup and GI consult. 03/25 Patient reported improved abdominal pain. 03/26 Abdominal pain resolved. 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 Leon is a 63 year old female with past medical history significant for CHF, hypertension, hyperlipidemia, COPD on continuous home 02, diabetes, GERD, anxiety, and depression who presents for complaints of shortness of breath starting yesterday and right sided sharp burning abdominal pain. Reports shortness of breath has persisted despite home breathing treatments and home oxygen. Reports cough with white sputum which she reports as being her baseline. Also complains of right sided abdominal burning/sharp 10/10 abdominal pain that resolved spontaneously once arriving to ER. ER completed a CT of the abdomen/pelvis which showed no acute finding in the abdomen or pelvis, cholelithiasis with several tiny gallstones with no pericholecystic fluid or dilated bile ducts mild sigmoid colon diverticulosis with no evidence of diverticulitis, and unremarkable uterus. ER also obtained xray of the chest which showed no pneumonia or any other acute cardiopulmonary abnormality and COPD. While in ER patient received breathing treatments, Ceftriaxone, and Solu- Medrol which she reports has improved her shortness of breath. While receiving the Ceftriaxone she also reported itching which she states she sometimes has while taking Ceftriaxone but it never causes any other symptoms besides itching. Itching was relieved with Benadryl and Pepcid. Patient was treated as COPD exacerbation with IV antibiotics, steroids, and bronchodilators. Respiratory panel was negative, as were blood culture and sputu m culture. IV antibiotics switched to oral doxycycline. His 4 days of treatment, patient respiratory symptoms have significantly improved, IV steroids switched to oral prednisone. On the discharge day, patient was able to ambulate in the room without shortness of breath, although she reported occasional cough but that seemed to be her baseline. Patient is discharged home today, she was instructed to take oral doxycycline and a tapered dose of prednisone, follow-up with PCP as scheduled. Discharge discussed with: patient Time spent discussing smoking cessation with patient: more than 10 minutes - Time Spent with Patient Total time spent providing and/or coordinating discharge services: Time spent: Greater than 30 minutes - Discharge Medications Prescriptions: New Doxycycline 100 mg PO BID #10 capsule predniSONE [PredniSONE] 40 mg PO DAILY #20 tablet Continued Atorvastatin Calcium [Lipitor] 80 mg PO QAM Sertraline [Zoloft] 50 mg PO DAILY Ferrous Sulfate 325 mg PO DAILY Aspirin Enteric Coated [Aspirin EC] 81 mg PO DAILY Furosemide [Lasix] 20 mg PO DAILY Cyclosporine [Restasis] 1 drop BOTH EYES BID Cyanocobalamin (Vitamin B-12) [Vitamin B-12] 1,000 mcg PO DAILY Umeclidinium Yoder [Incruse Ellipta] 1 puff IH DAILY Nitroglycerin 0.4 mg PO Q5M PRN PRN Reason: Chest Pain Ezetimibe [Zetia] 10 mg PO DAILY Albuterol Neb [Proventil Neb] 2.5 mg IH Q4H PRN PRN Reason: Shortness Of Breath Loratadine [Claritin] 10 mg PO DAILY #30 tablet Dapagliflozin Propanediol [Farxiga] 5 mg PO DAILY Budesonide/Formoterol 160/4.5 [Symbicort 160/4.5] 2 puff IH BID Latanoprost [Xalatan] 1 drop BOTH EYES QAM PRN PRN Reason: Dry Eyes Omeprazole [PriLOSEC] 40 mg PO DAILY Potassium Chloride [K-Tab ER] 20 meq PO DAILY Roflumilast [Daliresp] 500 mcg PO DAILY Glimepiride [Amaryl] 1 mg PO QAM Fluticasone Propionate Nasal [Flonase] 1 spr NS QAM Albuterol Sulfate [Ventolin Hfa] 2 puff IH Q4H PRN PRN Reason: Shortness Of Breath Ammonium Lactate 1 appl TP BID GuaiFENesin/Dextromethorphan [Robitussin Cough-Chest Dm Liq] 10 ml PO HS PRN PRN Reason: COUGH/CONGESTION Cholecalciferol (Vitamin D3) [Vitamin D3] 800 unit PO DAILY Fluticasone Propionate Nasal [Flonase] 1 spray NS QPM PRN PRN Reason: Allergy Symptoms Guaifenesin [Mucinex] 600 mg PO Q12H PRN PRN Reason: COUGH/CHEST CONGESTION rOPINIRole [Requip] 1 mg PO HS Travoprost [Travatan Z] 1 drop BOTH EYES HS Home Medications: Atorvastatin Calcium [Lipitor] 80 mg PO QAM 07/14/16 [History] Sertraline [Zoloft] 50 mg PO DAILY 07/15/16 [History] Aspirin Enteric Coated [Aspirin EC] 81 mg PO DAILY 10/22/16 [History] Cyanocobalamin (Vitamin B-12) [Vitamin B-12] 1,000 mcg PO DAILY 10/22/16 [History] Cyclosporine [Restasis] 1 drop BOTH EYES BID 10/22/16 [History] Ferrous Sulfate 325 mg PO DAILY 10/22/16 [History] Furosemide [Lasix] 20 mg PO DAILY 10/22/16 [History] Umeclidinium Yoder [Incruse Ellipta] 1 puff IH DAILY 04/01/17 [History] Nitroglycerin 0.4 mg PO Q5M PRN 07/08/17 [History] Ezetimibe [Zetia] 10 mg PO DAILY 09/01/17 [History] Albuterol Neb [Proventil Neb] 2.5 mg IH Q4H PRN 09/22/17 [History] Loratadine [Claritin] 10 mg PO DAILY #30 tablet 09/26/17 [Rx] Dapagliflozin Propanediol [Farxiga] 5 mg PO DAILY 12/19/17 [History] Budesonide/Formoterol 160/4.5 [Symbicort 160/4.5] 2 puff IH BID 01/19/18 [History] Latanoprost [Xalatan] 1 drop BOTH EYES QAM PRN 06/18/18 [History] Omeprazole [PriLOSEC] 40 mg PO DAILY 06/18/18 [History] Potassium Chloride [K-Tab ER] 20 meq PO DAILY 06/18/18 [History] Roflumilast [Daliresp] 500 mcg PO DAILY 06/18/18 [History] Fluticasone Propionate Nasal [Flonase] 1 spr NS QAM 10/03/18 [History] Glimepiride [Amaryl] 1 mg PO QAM 10/03/18 [History] Albuterol Sulfate [Ventolin Hfa] 2 puff IH Q4H PRN 12/20/18 [History] Ammonium Lactate 1 appl TP BID 12/20/18 [History] GuaiFENesin/Dextromethorphan [Robitussin Cough-Chest Dm Liq] 10 ml PO HS PRN 12/20/18 [History] Cholecalciferol (Vitamin D3) [Vitamin D3] 800 unit PO DAILY 03/24/19 [History] Fluticasone Propionate Nasal [Flonase] 1 spray NS QPM PRN 03/24/19 [History] Guaifenesin [Mucinex] 600 mg PO Q12H PRN 03/24/19 [History] Travoprost [Travatan Z] 1 drop BOTH EYES HS 03/24/19 [History] rOPINIRole [Requip] 1 mg PO HS 03/24/19 [History] Doxycycline 100 mg PO BID #10 capsule 03/28/19 [Rx] predniSONE [PredniSONE] 40 mg PO DAILY #20 tablet 03/28/19 [Rx] Allergies/Adverse Reactions: Allergy/AdvReac Type Severity Reaction Status Date / Time acetaminophen [From Vicodin] AdvReac Headache Verified 03/24/19 19:34 hydrocodone [From Vicodin] AdvReac UPSET Verified 03/24/19 19:34 STOMACH/VOMITING Date of admission: 03/26/19 16:30 Primary care physician: Ray Garcia Consults: 03/24/19 08:59 Consult to Nurse Navigator [CONS] Routine Comment: COPD Anticipated date of discharge: 03/28/19 - Constitutional Vitals: Temp Pulse Resp BP Pulse Ox 98.1 F 96 16 102/67 94 03/28/19 07:34 03/28/19 07:34 03/28/19 07:47 03/28/19 07:34 03/28/19 07:47 General appearance: Present: A&O X 3 Exam: General: Alert and oriented. In no acute distress. Skin:Normal color, no rash, no lesions. HEENT:Pupils equal, round and reactive. Cardiovascular:Heart sounds distant, no rubs, murmurs or gallops. No JVD. Pulse regular. Lungs:Breath sounds decreased, wheezes noted. Respirations easy non labored. Abdomen:Soft, non-tender, no rigidity. Extremities:No deformity, no edema or tenderness, no joint swelling or clubbing. Neurological:Normal cognition and motor skills. Pulses:Carotid and radial pulses normal +2. Rest of the physical exam is non contributory. - Patient Status Disposition: Home, Self-Care Condition: Fair Functional capacity at discharge: independent ambulation Overall status at discharge: patient is progressing back to baseline - Discharge Instructions Follow Up With: Ray Garcia MD [Primary Care Provider] - - Diet and Activity Activity: increase activity as tolerated Diet: diabetic diet, low fat, low cholesterol, low salt diet
[2019-03-28] MEDS: Cyclosporine [Restasis] 1 DROP OP SCH (09:39)
[2019-03-28] MEDS: Ammonium Lactate 30 APPL/225 GM BOTTLE TP SCH (09:40)
[2019-03-28] MEDS: Fluticasone Propionate Nasal 50 MCG/SPRAY BOTTLE NS SCH (09:40)
[2019-03-28] MEDS: predniSONE 20 MG TABLET PO SCH (09:41)
[2019-03-29] MEDS ORDERED: Cholecalciferol (D-3) 1,000 UNIT (25MCG) TABLET PO SCH (08:01)
== END 2019-03-28 14:06 | disposition home or self-care (01) | DRG 192 ==
LOC: EMEROOARM 19:23 → 3BNU 19:23
PROVIDERS: ADMIT Internal Medicine; ATTEND Internal Medicine

== ENCOUNTER 2019-06-03 08:34 | Inpatient (IN) ==
[2019-06-03] MEDS ORDERED: methylPREDNISolone 125 MG/2 ML VIAL IVP ONE (08:40)
[2019-06-03] MEDS ORDERED: Ipratropium/Albuterol Neb 3 ML IH ONE (08:40)
[2019-06-03] MEDS ORDERED: Aspirin 325 MG TABLET PO ONE (08:41)
[2019-06-03] MEDS ORDERED: 0.9 % Sodium Chloride 1,000 ML IVC ONE (08:46)
[2019-06-03 09:15] LABS: Basophils # 0.1 K/mcL (0.0-0.2); Basophils % 0.3 %; Eosinophils # 0.2 K/mcL (0.0-0.6); Eosinophils % 0.8 %; Hemoglobin 12.7 g/dL (11.5-15.4); Immature Granulocytes % 0.8 % (0-4); Lymphocytes # 1.6 K/mcL (0.6-4.6); Lymphocytes % 7.7 %; Mean Corpuscular HGB Conc 31.8 g/dL (31.6-35.5); Mean Corpuscular Hemoglobin 28.4 pg (28.0-33.3); Mean Corpuscular Volume 89.5 fL (83.0-100.0); Mean Platelet Volume 9.4 fL (9.4-12.4); Monocytes # 1.2 K/mcL (0.0-1.3); Neutrophils # 17.5 K/mcL (1.6-8.9); Platelet Count 230 K/mcL (140-400); Red Blood Count 4.47 M/mcL (3.82-4.97); Segmented Neutrophils % 84.4 %; White Blood Count 20.7 K/mcL (4.3-11.1)
[2019-06-03 09:28] LABS: BUN/Creatinine Ratio 18 (6-26); Blood Urea Nitrogen 11 mg/dL (8-23); Calcium 9.5 mg/dL (8.6-10.3); Carbon Dioxide 24 mEq/L (23-29); Chloride 104 mEq/L (98-107); Glucose 119 mg/dL (70-105); Osmolality,Calculated 293 (280-300); Potassium 3.7 mEq/L (3.5-5.1); Sodium 141 mEq/L (136-145); Troponin I < 0.03 ng/mL (< 0.04); eGFR For African Americans > 60 (> 60); eGFR For Non-African Americans > 60 (> 60)
[2019-06-03] MEDS ORDERED: Azithromycin 500 MG in D5% in Water 250 ML IVPB ONE (10:17)
[2019-06-03] MEDS ORDERED: cefTRIAXone 1,000 MG in Water for inj. (sterile) 10 ML IVP ONE (10:17)
[2019-06-03] MEDS ORDERED: Albuterol 2.5 MG/3 ML NEBULIZER IH ONE (10:22)
[2019-06-03] MEDS ORDERED: Acetaminophen 325 MG TABLET PO PRN (11:16)
[2019-06-03] MEDS ORDERED: Ringers Solution, Lactated 1,000 ML IVC ONE (11:16)
[2019-06-03] MEDS ORDERED: Ondansetron 4 MG/2 ML VIAL IVP PRN (11:16)
[2019-06-03] MEDS ORDERED: Ipratropium/Albuterol Neb 3 ML IH PRN (11:35)
[2019-06-03 11:41] LABS: Magnesium 2.1 mg/dL (1.6-2.6)
[2019-06-03] MEDS: Ipratropium/Albuterol Neb 3 ML IH SCH ×4 (12:33→23:05)
[2019-06-03] MEDS: 0.9 % Sodium Chloride 1,000 ML IVC SCH ×2 (13:22→23:38)
[2019-06-03] MEDS ORDERED: Dextrose Gel 15 GM/37.5 ML TUBE PO PRN ×2 (18:05)
[2019-06-03] MEDS ORDERED: D5% in Water 1,000 ML IVC PRN (18:05)
[2019-06-03] MEDS ORDERED: *HR* Dextrose 50 % in Water (Syg) 50 ML SYRINGE IVP PRN (18:05)
[2019-06-03] MEDS: Insulin LISPRO 300 UNITS/3 ML VIAL SQ SCH ×2 (18:25→21:44)
[2019-06-03] MEDS ORDERED: Ibuprofen 600 MG TABLET PO ONE (20:23)
[2019-06-03 21:14] LABS: Adenovirus Not Detected (Not Detect); Bordetella Pertussis Not Detected (Not Detect); Chlamydophila pneumoniae Not Detected (Not Detect); Coronavirus 229E Not Detected (Not Detect); Coronavirus HKU1 Not Detected (Not Detect); Coronavirus NL63 Not Detected (Not Detect); Coronavirus OC43 Not Detected (Not Detect); Human Metapneumovirus Not Detected (Not Detect); Human Rhinovirus/Enterovirus Not Detected (Not Detect); Influenza A Subtype 2009 H1 Not Detected (Not Detect); Influenza A Untypeable Not Detected (Not Detect); Influenza B Not Detected (Not Detect); Mycoplasma pneumoniae Not Detected (Not Detect); Parainfluenza Virus 1 Not Detected (Not Detect); Parainfluenza Virus 2 Not Detected (Not Detect); Parainfluenza Virus 3 Not Detected (Not Detect); Parainfluenza Virus 4 Not Detected (Not Detect); Respiratory Syncytial Virus Not Detected (Not Detect)
[2019-06-04] MEDS: Ipratropium/Albuterol Neb 3 ML IH SCH ×6 (04:24→23:01)
[2019-06-04] MEDS: *HR* Enoxaparin 40 MG/0.4 ML SYRINGE SQ SCH (05:37)
[2019-06-04 06:18] LABS: Hematocrit 32.7 % (35.3-44.9); Mean Corpuscular HGB Conc 32.1 g/dL (31.6-35.5); Mean Corpuscular Hemoglobin 28.5 pg (28.0-33.3); Mean Corpuscular Volume 88.9 fL (83.0-100.0); Mean Platelet Volume 9.5 fL (9.4-12.4); Platelet Count 198 K/mcL (140-400); Red Blood Count 3.68 M/mcL (3.82-4.97); Red Cell Distribution Width 15.1 % (11.5-14.5); White Blood Count 16.2 K/mcL (4.3-11.1)
[2019-06-04 06:33] LABS: Hemoglobin 10.5 g/dL (11.5-15.4)
[2019-06-04 06:35] LABS: BUN/Creatinine Ratio 35 (6-26); Blood Urea Nitrogen 18 mg/dL (8-23); Calcium 9.1 mg/dL (8.6-10.3); Carbon Dioxide 24 mEq/L (23-29); Chloride 110 mEq/L (98-107); Glucose 173 mg/dL (70-105); Magnesium 2.1 mg/dL (1.6-2.6); Osmolality,Calculated 300 (280-300); Potassium 3.7 mEq/L (3.5-5.1); Sodium 142 mEq/L (136-145); eGFR For African Americans > 60 (> 60); eGFR For Non-African Americans > 60 (> 60)
[2019-06-04] MEDS: Insulin LISPRO 300 UNITS/3 ML VIAL SQ SCH ×4 (07:40→21:04)
[2019-06-04] MEDS: cefTRIAXone 1,000 MG in Water for inj. (sterile) 10 ML IVP SCH (11:06)
[2019-06-04] MEDS: Azithromycin 250 MG TABLET PO SCH (11:08)
[2019-06-04] MEDS: predniSONE 20 MG TABLET PO SCH (11:08)
[2019-06-04] MEDS ORDERED: Latanoprost 2.5 ML BOTTLE BOTH EYES PRN (14:23)
[2019-06-04] MEDS: Budesonide/Formoterol 160/4.5 1 PUFF INH IH SCH (20:25)
[2019-06-04] MEDS ORDERED: NON-FORMULARY MEDICATION 1 EACH EACH (Travoprost [Travatan Z] 1 DROP) BOTH EYES SCH (21:00)
[2019-06-04] MEDS: rOPINIRole 1 MG TABLET PO SCH (21:03)
[2019-06-05] MEDS: Ipratropium/Albuterol Neb 3 ML IH SCH ×5 (03:56→19:39)
[2019-06-05 05:01] LABS: Basophils % 0.1 %; Eosinophils % 0.2 %; Hematocrit 33.2 % (35.3-44.9); Hemoglobin 10.7 g/dL (11.5-15.4); Immature Granulocytes % 0.5 % (0-4); Lymphocytes # 1.5 K/mcL (0.6-4.6); Lymphocytes % 10.5 %; Mean Corpuscular HGB Conc 32.2 g/dL (31.6-35.5); Mean Corpuscular Hemoglobin 28.3 pg (28.0-33.3); Mean Corpuscular Volume 87.8 fL (83.0-100.0); Mean Platelet Volume 9.9 fL (9.4-12.4); Monocytes # 0.8 K/mcL (0.0-1.3); Monocytes % 5.2 %; Neutrophils # 12.2 K/mcL (1.6-8.9); Platelet Count 232 K/mcL (140-400); Red Blood Count 3.78 M/mcL (3.82-4.97); Red Cell Distribution Width 15.5 % (11.5-14.5); Segmented Neutrophils % 83.5 %; White Blood Count 14.6 K/mcL (4.3-11.1)
[2019-06-05] MEDS: *HR* Enoxaparin 40 MG/0.4 ML SYRINGE SQ SCH (05:03)
[2019-06-05 07:04] LABS: BUN/Creatinine Ratio 35 (6-26); Blood Urea Nitrogen 21 mg/dL (8-23); Carbon Dioxide 27 mEq/L (23-29); Chloride 106 mEq/L (98-107); Glucose 100 mg/dL (70-105); Osmolality,Calculated 293 (280-300); Potassium 3.6 mEq/L (3.5-5.1); Sodium 140 mEq/L (136-145); eGFR For African Americans > 60 (> 60); eGFR For Non-African Americans > 60 (> 60)
[2019-06-05] MEDS: Insulin LISPRO 300 UNITS/3 ML VIAL SQ SCH ×4 (07:41→22:12)
[2019-06-05] MEDS: Budesonide/Formoterol 160/4.5 1 PUFF INH IH SCH ×2 (07:56→19:39)
[2019-06-05] MEDS: Furosemide 20 MG TABLET PO SCH (09:06)
[2019-06-05] MEDS: predniSONE 20 MG TABLET PO SCH (09:06)
[2019-06-05] MEDS: Aspirin Enteric Coated 81 MG Tablet PO SCH (09:07)
[2019-06-05] MEDS: Loratadine 10 MG TABLET PO SCH (09:07)
[2019-06-05] MEDS: Roflumilast [Daliresp] 500 MCG PO SCH (09:07)
[2019-06-05] MEDS: Azithromycin 250 MG TABLET PO SCH (13:17)
[2019-06-05] MEDS: cefTRIAXone 1,000 MG in Water for inj. (sterile) 10 ML IVP SCH (13:17)
[2019-06-05] MEDS: rOPINIRole 1 MG TABLET PO SCH (21:06)
[2019-06-06] MEDS: Ipratropium/Albuterol Neb 3 ML IH SCH ×4 (00:19→11:11)
[2019-06-06 02:02] LABS: Basophils % 0.1 %; Eosinophils % 0.4 %; Hematocrit 35.5 % (35.3-44.9); Immature Granulocytes % 0.4 % (0-4); Lymphocytes # 1.4 K/mcL (0.6-4.6); Lymphocytes % 12.9 %; Mean Corpuscular Hemoglobin 27.7 pg (28.0-33.3); Mean Corpuscular Volume 89.4 fL (83.0-100.0); Mean Platelet Volume 9.5 fL (9.4-12.4); Monocytes # 0.7 K/mcL (0.0-1.3); Monocytes % 6.3 %; Neutrophils # 8.4 K/mcL (1.6-8.9); Platelet Count 232 K/mcL (140-400); Red Blood Count 3.97 M/mcL (3.82-4.97); Red Cell Distribution Width 15.1 % (11.5-14.5); Segmented Neutrophils % 79.9 %; White Blood Count 10.5 K/mcL (4.3-11.1)
[2019-06-06] MEDS: *HR* Enoxaparin 40 MG/0.4 ML SYRINGE SQ SCH (06:16)
[2019-06-06 07:15] VITALS: BP 110/64
[2019-06-06] MEDS: Budesonide/Formoterol 160/4.5 1 PUFF INH IH SCH (07:32)
[2019-06-06] MEDS: Insulin LISPRO 300 UNITS/3 ML VIAL SQ SCH ×2 (07:57→12:56)
[2019-06-06] MEDS: predniSONE 20 MG TABLET PO SCH (10:22)
[2019-06-06] MEDS: Furosemide 20 MG TABLET PO SCH (10:22)
[2019-06-06] MEDS: Loratadine 10 MG TABLET PO SCH (10:22)
[2019-06-06] MEDS: Aspirin Enteric Coated 81 MG Tablet PO SCH (10:22)
[2019-06-06] MEDS: Azithromycin 250 MG TABLET PO SCH (10:23)
[2019-06-06] MEDS: cefTRIAXone 1,000 MG in Water for inj. (sterile) 10 ML IVP SCH (10:23)
[2019-06-06] MEDS ORDERED: FLU Vac QV 19-20 (6Month+)/PF 0.5 ML SYRINGE IM ONE (12:26)
[2019-06-06] MEDS: Roflumilast [Daliresp] 500 MCG PO SCH (12:51)
== END 2019-06-06 13:35 | disposition home or self-care (01) | DRG 190 ==
LOC: EMEROOARM 08:34 → 2NENU 08:34 → SUATTDRO 13:45
PROVIDERS: ADMIT Internal Medicine; ATTEND Internal Medicine

== ENCOUNTER 2019-10-31 17:09 | Inpatient (IN) ==
[2019-10-31] MEDS ORDERED: Azithromycin 500 MG in 0.9 % Sodium Chloride 250 ML IVPB ONE (17:15)
[2019-10-31] MEDS ORDERED: predniSONE 20 MG TABLET PO ONE (17:15)
[2019-10-31 17:39] LABS: Basophils % 0.4 %; Eosinophils # 0.6 K/mcL (0.0-0.6); Eosinophils % 7.8 %; Hematocrit 38.8 % (35.3-44.9); Hemoglobin 11.7 g/dL (11.5-15.4); Immature Granulocytes % 0.4 % (0-4); Lymphocytes % 12.1 %; Mean Corpuscular HGB Conc 30.2 g/dL (31.6-35.5); Mean Corpuscular Hemoglobin 26.2 pg (28.0-33.3); Mean Platelet Volume 9.3 fL (9.4-12.4); Monocytes # 0.5 K/mcL (0.0-1.3); Monocytes % 6.5 %; Platelet Count 246 K/mcL (140-400); Red Blood Count 4.46 M/mcL (3.82-4.97); Red Cell Distribution Width 13.8 % (11.5-14.5); Segmented Neutrophils % 72.8 %; White Blood Count 8.3 K/mcL (4.3-11.1)
[2019-10-31] MEDS: Budesonide/Formoterol 160/4.5 1 PUFF INH IH SCH ×2 (17:47→21:52)
[2019-10-31 17:57] LABS: BUN/Creatinine Ratio 25 (6-26); Blood Urea Nitrogen 13 mg/dL (8-23); Carbon Dioxide 32 mEq/L (23-29); Chloride 103 mEq/L (98-107); Glucose 184 mg/dL (70-105); Osmolality,Calculated 291 (280-300); Potassium 4.1 mEq/L (3.5-5.1); Sodium 138 mEq/L (136-145); eGFR For African Americans > 60 (> 60); eGFR For Non-African Americans > 60 (> 60)
[2019-10-31] MEDS: Ipratropium/Albuterol Neb 3 ML IH PRN ×2 (17:57→18:41)
[2019-10-31] MEDS ORDERED: Ipratropium/Albuterol Neb 3 ML IH ONE (18:43)
[2019-10-31] MEDS ORDERED: Ondansetron 4 MG/2 ML VIAL IVP ONE (18:50)
[2019-10-31] MEDS ORDERED: Ondansetron 4 MG/2 ML VIAL ONE (18:52)
[2019-10-31 19:10] LABS: Troponin I < 0.03 ng/mL (< 0.04)
[2019-10-31] MEDS ORDERED: Naloxone 0.4 MG/ML INJ IVP PRN (19:31)
[2019-10-31] MEDS ORDERED: Dextrose Gel 15 GM/37.5 ML TUBE PO PRN ×2 (19:32)
[2019-10-31] MEDS ORDERED: *HR* Dextrose 50 % in Water (Syg) 50 ML SYRINGE IVP PRN (19:32)
[2019-10-31] MEDS ORDERED: D5% in Water 1,000 ML IVC PRN (19:32)
[2019-10-31] MEDS ORDERED: Fluticasone Propionate Nasal 50 MCG/SPRAY BOTTLE NS PRN (20:09)
[2019-10-31] MEDS ORDERED: GUAIFENESIN PO PRN (20:09)
[2019-10-31] MEDS ORDERED: DEXTROMETHORPHAN PO PRN (20:09)
[2019-10-31] MEDS ORDERED: NON-FORMULARY MEDICATION 1 EACH EACH (Travoprost [Travatan Z] 1 DROP) BOTH EYES PRN (20:09)
[2019-10-31] MEDS ORDERED: [UNRECOGNIZED DRUG - OTHER] PO PRN (20:09)
[2019-10-31] MEDS ORDERED: Budesonide/Formoterol 160/4.5 1 PUFF INH IH SCH (22:00)
[2019-10-31] MEDS: *HR* Heparin 5,000 UNIT/ML VIAL SQ SCH (23:00)
[2019-10-31] MEDS: (Cyclosporine [Restasis] 1 DROP) OP SCH (23:01)
[2019-11-01] MEDS: Ipratropium/Albuterol Neb 3 ML IH PRN (03:45)
[2019-11-01 04:37] LABS: Basophils % 0.3 %; Hematocrit 39.7 % (35.3-44.9); Hemoglobin 12.1 g/dL (11.5-15.4); Immature Granulocytes % 0.3 % (0-4); Lymphocytes # 0.5 K/mcL (0.6-4.6); Lymphocytes % 6.5 %; Mean Corpuscular HGB Conc 30.5 g/dL (31.6-35.5); Mean Corpuscular Hemoglobin 26.9 pg (28.0-33.3); Mean Corpuscular Volume 88.2 fL (83.0-100.0); Mean Platelet Volume 9.3 fL (9.4-12.4); Monocytes # 0.1 K/mcL (0.0-1.3); Monocytes % 1.5 %; Neutrophils # 6.5 K/mcL (1.6-8.9); Platelet Count 224 K/mcL (140-400); Red Cell Distribution Width 13.9 % (11.5-14.5); Segmented Neutrophils % 91.4 %; White Blood Count 7.1 K/mcL (4.3-11.1)
[2019-11-01 04:54] LABS: BUN/Creatinine Ratio 20 (6-26); Blood Urea Nitrogen 15 mg/dL (8-23); Calcium 9.4 mg/dL (8.6-10.3); Carbon Dioxide 29 mEq/L (23-29); Chloride 106 mEq/L (98-107); Glucose 176 mg/dL (70-105); Osmolality,Calculated 293 (280-300); Potassium 5.1 mEq/L (3.5-5.1); Sodium 139 mEq/L (136-145); eGFR For African Americans > 60 (> 60); eGFR For Non-African Americans > 60 (> 60)
[2019-11-01] MEDS: *HR* Heparin 5,000 UNIT/ML VIAL SQ SCH ×3 (06:11→20:26)
[2019-11-01] MEDS: Insulin LISPRO 300 UNITS/3 ML VIAL SQ SCH ×3 (08:35→16:44)
[2019-11-01] MEDS: Cholecalciferol (D-3) 1,000 UNIT (25MCG) TABLET PO SCH (08:38)
[2019-11-01] MEDS: Cyanocobalamin (B-12) 1,000 MCG TABLET PO SCH (08:39)
[2019-11-01] MEDS: Loratadine 10 MG TABLET PO SCH (08:39)
[2019-11-01] MEDS: (Cyclosporine [Restasis] 1 DROP) OP SCH ×2 (08:40→20:26)
[2019-11-01] MEDS: Furosemide 20 MG TABLET PO SCH (08:40)
[2019-11-01] MEDS: (Ezetimibe [Zetia] 10 MG) PO SCH (08:40)
[2019-11-01] MEDS: Azithromycin 500 MG in 0.9 % Sodium Chloride 250 ML IVPB SCH (08:40)
[2019-11-01] MEDS: Aspirin 81 MG TAB.CHEW PO SCH (08:40)
[2019-11-01] MEDS ORDERED: predniSONE 20 MG TABLET PO SCH (09:00)
[2019-11-01] MEDS ORDERED: NON-FORMULARY MEDICATION 1 EACH EACH (Roflumilast [Daliresp] 500 MCG) PO SCH (09:00)
[2019-11-01] MEDS: Ipratropium/Albuterol Neb 3 ML IH SCH ×5 (09:24→23:56)
[2019-11-01] MEDS: Budesonide/Formoterol 160/4.5 1 PUFF INH IH SCH ×2 (09:25→19:47)
[2019-11-01] MEDS ORDERED: Tiotropium 18 MCG inhalation IH SCH (10:00)
[2019-11-01] MEDS ORDERED: Budesonide/Formoterol 160/4.5 1 PUFF INH IH SCH (10:00)
[2019-11-01] MEDS: MethylPREDNISolone 40 MG/ML VIAL IVP SCH ×3 (11:28→23:06)
[2019-11-01] MEDS: rOPINIRole 1 MG TABLET PO SCH (16:44)
[2019-11-01] MEDS ORDERED: NON-FORMULARY MEDICATION 1 EACH EACH (Alendronate Sodium [Fosamax] 70 MG) PO SCH (20:09)
[2019-11-01] MEDS ORDERED: Ibuprofen 600 MG TABLET PO ONE (23:05)
[2019-11-02] MEDS: Ipratropium/Albuterol Neb 3 ML IH SCH ×3 (03:38→11:33)
[2019-11-02] MEDS: *HR* Heparin 5,000 UNIT/ML VIAL SQ SCH ×3 (05:51→21:36)
[2019-11-02 06:08] LABS: Basophils % 0.1 %; Hematocrit 38.7 % (35.3-44.9); Hemoglobin 11.5 g/dL (11.5-15.4); Immature Granulocytes % 0.7 % (0-4); Lymphocytes # 0.5 K/mcL (0.6-4.6); Lymphocytes % 4.5 %; Mean Corpuscular HGB Conc 29.7 g/dL (31.6-35.5); Mean Corpuscular Hemoglobin 26.3 pg (28.0-33.3); Mean Corpuscular Volume 88.4 fL (83.0-100.0); Mean Platelet Volume 9.6 fL (9.4-12.4); Monocytes # 0.3 K/mcL (0.0-1.3); Neutrophils # 9.7 K/mcL (1.6-8.9); Platelet Count 246 K/mcL (140-400); Red Blood Count 4.38 M/mcL (3.82-4.97); Segmented Neutrophils % 91.7 %; White Blood Count 10.5 K/mcL (4.3-11.1)
[2019-11-02 06:27] LABS: BUN/Creatinine Ratio 33 (6-26); Blood Urea Nitrogen 23 mg/dL (8-23); Calcium 9.8 mg/dL (8.6-10.3); Carbon Dioxide 29 mEq/L (23-29); Chloride 102 mEq/L (98-107); Glucose 243 mg/dL (70-105); Magnesium 2.1 mg/dL (1.6-2.6); Osmolality,Calculated 300 (280-300); Phosphorous 3.8 mg/dL (2.7-4.5); Potassium 4.3 mEq/L (3.5-5.1); Sodium 139 mEq/L (136-145); eGFR For African Americans > 60 (> 60); eGFR For Non-African Americans > 60 (> 60)
[2019-11-02] MEDS: Budesonide/Formoterol 160/4.5 1 PUFF INH IH SCH ×2 (07:12→20:46)
[2019-11-02] MEDS: Loratadine 10 MG TABLET PO SCH (08:43)
[2019-11-02] MEDS: Cyanocobalamin (B-12) 1,000 MCG TABLET PO SCH (08:44)
[2019-11-02] MEDS: MethylPREDNISolone 40 MG/ML VIAL IVP SCH ×2 (08:44→17:01)
[2019-11-02] MEDS: Aspirin 81 MG TAB.CHEW PO SCH (08:44)
[2019-11-02] MEDS: Insulin LISPRO 300 UNITS/3 ML VIAL SQ SCH ×3 (08:44→17:01)
[2019-11-02] MEDS: Furosemide 20 MG TABLET PO SCH (08:44)
[2019-11-02] MEDS: Cholecalciferol (D-3) 1,000 UNIT (25MCG) TABLET PO SCH (08:44)
[2019-11-02] MEDS: Azithromycin 500 MG in 0.9 % Sodium Chloride 250 ML IVPB SCH (08:44)
[2019-11-02] MEDS: (Ezetimibe [Zetia] 10 MG) PO SCH (08:45)
[2019-11-02] MEDS: (Cyclosporine [Restasis] 1 DROP) OP SCH ×2 (08:45→21:36)
[2019-11-02] MEDS: Albuterol 2.5 MG/3 ML NEBULIZER IH SCH ×2 (15:52→20:45)
[2019-11-02] MEDS: Acetylcysteine 10% 2 ML INHSOL IH SCH ×2 (15:53→20:45)
[2019-11-02] MEDS: rOPINIRole 1 MG TABLET PO SCH (17:01)
[2019-11-02] MEDS: Latanoprost 2.5 ML BOTTLE BOTH EYES PRN (21:36)
[2019-11-03] MEDS: Albuterol 2.5 MG/3 ML NEBULIZER IH SCH ×2 (00:08→03:31)
[2019-11-03] MEDS: MethylPREDNISolone 40 MG/ML VIAL IVP SCH (00:26)
[2019-11-03 03:09] LABS: Basophils % 0.1 %; Hemoglobin 11.5 g/dL (11.5-15.4); Immature Granulocytes % 0.9 % (0-4); Lymphocytes # 0.6 K/mcL (0.6-4.6); Mean Corpuscular HGB Conc 31.1 g/dL (31.6-35.5); Mean Corpuscular Hemoglobin 27.5 pg (28.0-33.3); Mean Corpuscular Volume 88.5 fL (83.0-100.0); Mean Platelet Volume 9.9 fL (9.4-12.4); Monocytes # 0.4 K/mcL (0.0-1.3); Monocytes % 2.7 %; Neutrophils # 13.5 K/mcL (1.6-8.9); Platelet Count 245 K/mcL (140-400); Red Blood Count 4.18 M/mcL (3.82-4.97); Red Cell Distribution Width 14.1 % (11.5-14.5); Segmented Neutrophils % 92.3 %; White Blood Count 14.6 K/mcL (4.3-11.1)
[2019-11-03 03:28] LABS: BUN/Creatinine Ratio 29 (6-26); Blood Urea Nitrogen 26 mg/dL (8-23); Calcium 9.6 mg/dL (8.6-10.3); Carbon Dioxide 30 mEq/L (23-29); Chloride 100 mEq/L (98-107); Glucose 272 mg/dL (70-105); Magnesium 2.2 mg/dL (1.6-2.6); Osmolality,Calculated 300 (280-300); Phosphorous 3.7 mg/dL (2.7-4.5); Potassium 4.2 mEq/L (3.5-5.1); Sodium 138 mEq/L (136-145); eGFR For African Americans > 60 (> 60); eGFR For Non-African Americans > 60 (> 60)
[2019-11-03] MEDS: Acetylcysteine 10% 2 ML INHSOL IH SCH (03:31)
[2019-11-03] MEDS ORDERED: *HR* LORazepam 0.5 MG TABLET PO ONE (03:55)
[2019-11-03] MEDS: *HR* Heparin 5,000 UNIT/ML VIAL SQ SCH ×2 (05:40→15:12)
[2019-11-03] MEDS: Budesonide/Formoterol 160/4.5 1 PUFF INH IH SCH ×2 (07:25→21:58)
[2019-11-03] MEDS ORDERED: Albuterol 2.5 MG/3 ML NEBULIZER IH PRN (07:35)
[2019-11-03] MEDS: Azithromycin 250 MG TABLET PO SCH (07:44)
[2019-11-03] MEDS: Cholecalciferol (D-3) 1,000 UNIT (25MCG) TABLET PO SCH (07:44)
[2019-11-03] MEDS: Cyanocobalamin (B-12) 1,000 MCG TABLET PO SCH (07:45)
[2019-11-03] MEDS: predniSONE 20 MG TABLET PO SCH (07:45)
[2019-11-03] MEDS: Loratadine 10 MG TABLET PO SCH (07:45)
[2019-11-03] MEDS: Insulin LISPRO 300 UNITS/3 ML VIAL SQ SCH ×4 (07:45→19:51)
[2019-11-03] MEDS: Aspirin 81 MG TAB.CHEW PO SCH (07:45)
[2019-11-03] MEDS: Furosemide 20 MG TABLET PO SCH (07:45)
[2019-11-03] MEDS: (Cyclosporine [Restasis] 1 DROP) OP SCH ×2 (07:46→19:56)
[2019-11-03] MEDS: (Ezetimibe [Zetia] 10 MG) PO SCH (07:46)
[2019-11-03] MEDS ORDERED: Ipratropium/Albuterol Neb 3 ML IH SCH ×2 (08:00→10:00)
[2019-11-03] MEDS ORDERED: *HR* Metoprolol 5 MG/5 ML VIAL IVP ONE (12:12)
[2019-11-03] MEDS: Insulin DETEMIR 100 UNIT/ML X5UNITS SQ SCH (12:12)
[2019-11-03] MEDS: Tiotropium 18 MCG inhalation IH SCH (15:11)
[2019-11-03] MEDS: Levalbuterol Neb 0.63 MG/3 ML IH SCH ×2 (15:40→21:58)
[2019-11-03] MEDS: rOPINIRole 1 MG TABLET PO SCH (16:51)
[2019-11-04] MEDS: Levalbuterol Neb 0.63 MG/3 ML IH SCH ×4 (03:42→22:20)
[2019-11-04] MEDS: *HR* Heparin 5,000 UNIT/ML VIAL SQ SCH ×4 (05:38→21:17)
[2019-11-04 05:43] LABS: Basophils % 0.2 %; Eosinophils % 0.1 %; Hematocrit 37.3 % (35.3-44.9); Hemoglobin 11.3 g/dL (11.5-15.4); Immature Granulocytes % 0.6 % (0-4); Lymphocytes # 2.3 K/mcL (0.6-4.6); Lymphocytes % 17.9 %; Mean Corpuscular HGB Conc 30.3 g/dL (31.6-35.5); Mean Corpuscular Hemoglobin 26.5 pg (28.0-33.3); Mean Corpuscular Volume 87.4 fL (83.0-100.0); Mean Platelet Volume 9.8 fL (9.4-12.4); Monocytes # 0.9 K/mcL (0.0-1.3); Monocytes % 7.3 %; Neutrophils # 9.4 K/mcL (1.6-8.9); Platelet Count 236 K/mcL (140-400); Red Blood Count 4.27 M/mcL (3.82-4.97); Red Cell Distribution Width 14.1 % (11.5-14.5); Segmented Neutrophils % 73.9 %; White Blood Count 12.7 K/mcL (4.3-11.1)
[2019-11-04 06:05] LABS: BUN/Creatinine Ratio 55 (6-26); Blood Urea Nitrogen 31 mg/dL (8-23); Calcium 8.9 mg/dL (8.6-10.3); Carbon Dioxide 36 mEq/L (23-29); Chloride 103 mEq/L (98-107); Glucose 87 mg/dL (70-105); Magnesium 2.2 mg/dL (1.6-2.6); Osmolality,Calculated 302 (280-300); Phosphorous 3.5 mg/dL (2.7-4.5); Potassium 3.7 mEq/L (3.5-5.1); Sodium 143 mEq/L (136-145); eGFR For African Americans > 60 (> 60); eGFR For Non-African Americans > 60 (> 60)
[2019-11-04] MEDS: Insulin LISPRO 300 UNITS/3 ML VIAL SQ SCH ×4 (07:59→21:12)
[2019-11-04] MEDS: Aspirin 81 MG TAB.CHEW PO SCH ×2 (08:55→09:06)
[2019-11-04] MEDS: Loratadine 10 MG TABLET PO SCH (09:05)
[2019-11-04] MEDS: Azithromycin 250 MG TABLET PO SCH (09:06)
[2019-11-04] MEDS: Cholecalciferol (D-3) 1,000 UNIT (25MCG) TABLET PO SCH (09:06)
[2019-11-04] MEDS: Cyanocobalamin (B-12) 1,000 MCG TABLET PO SCH (09:06)
[2019-11-04] MEDS: predniSONE 20 MG TABLET PO SCH (09:06)
[2019-11-04] MEDS: Furosemide 20 MG TABLET PO SCH (09:06)
[2019-11-04] MEDS: Insulin DETEMIR 100 UNIT/ML X5UNITS SQ SCH (09:08)
[2019-11-04] MEDS: (Cyclosporine [Restasis] 1 DROP) OP SCH ×2 (09:08→21:09)
[2019-11-04] MEDS: GuaiFENesin/Dextromethorphan TABLET PO SCH ×2 (09:21→21:08)
[2019-11-04] MEDS: Budesonide/Formoterol 160/4.5 1 PUFF INH IH SCH ×2 (10:16→22:20)
[2019-11-04] MEDS: Tiotropium 18 MCG inhalation IH SCH (10:16)
[2019-11-04] MEDS: rOPINIRole 1 MG TABLET PO SCH (16:45)
[2019-11-04] MEDS: Latanoprost 2.5 ML BOTTLE BOTH EYES PRN (21:11)
[2019-11-05] MEDS: Levalbuterol Neb 0.63 MG/3 ML IH SCH ×2 (04:08→10:23)
[2019-11-05] MEDS: *HR* Heparin 5,000 UNIT/ML VIAL SQ SCH (05:51)
[2019-11-05 07:26] VITALS: BP 130/74
[2019-11-05] MEDS: Insulin LISPRO 300 UNITS/3 ML VIAL SQ SCH (08:16)
[2019-11-05] MEDS: Aspirin 81 MG TAB.CHEW PO SCH (08:55)
[2019-11-05] MEDS: Loratadine 10 MG TABLET PO SCH (08:55)
[2019-11-05] MEDS: Cyanocobalamin (B-12) 1,000 MCG TABLET PO SCH (08:55)
[2019-11-05] MEDS: Furosemide 20 MG TABLET PO SCH (08:55)
[2019-11-05] MEDS: GuaiFENesin/Dextromethorphan TABLET PO SCH (08:55)
[2019-11-05] MEDS: predniSONE 20 MG TABLET PO SCH (08:55)
[2019-11-05] MEDS: (Cyclosporine [Restasis] 1 DROP) OP SCH (08:56)
[2019-11-05] MEDS: Insulin DETEMIR 100 UNIT/ML X5UNITS SQ SCH (08:56)
[2019-11-05] MEDS: Cholecalciferol (D-3) 1,000 UNIT (25MCG) TABLET PO SCH (08:56)
[2019-11-05] MEDS: Budesonide/Formoterol 160/4.5 1 PUFF INH IH SCH (10:23)
[2019-11-05] MEDS: Tiotropium 18 MCG inhalation IH SCH (10:23)
[2019-11-05 10:44] LABS: Thyroid Stimulating Hormone 1.775 mcIU/mL (0.340-5.600)
== END 2019-11-05 11:34 | disposition home health service (06) | DRG 190 ==
LOC: EMEROOARM 17:09 → 2ANU 17:09 → SUATTDRO 11-01 22:01
PROVIDERS: ADMIT Internal Medicine; ATTEND Internal Medicine

== ENCOUNTER 2019-12-16 00:19 | Inpatient (IN) ==
[2019-12-16] MEDS ORDERED: 0.9 % Sodium Chloride 1,000 ML IVC ONE (00:33)
[2019-12-16] MEDS ORDERED: Ipratropium/Albuterol Neb 3 ML IH ONE (00:33)
[2019-12-16] MEDS ORDERED: methylPREDNISolone 125 MG/2 ML VIAL IVP ONE (00:33)
[2019-12-16 00:54] LABS: Basophils % 0.6 %; Nucleated Red Blood Cells 0.3 /100 WBC (0); Red Cell Distribution Width 16.9 % (11.5-14.5); Segmented Neutrophils % 70.1 %
[2019-12-16] MEDS ORDERED: Azithromycin 500 MG in D5% in Water 250 ML IVPB ONE (00:54)
[2019-12-16] MEDS ORDERED: cefTRIAXone 1,000 MG in Water for inj. (sterile) 10 ML IVP ONE (00:54)
[2019-12-16 00:56] LABS: Basophils # 0.1 K/mcL (0.0-0.2); Eosinophils # 0.5 K/mcL (0.0-0.6); Eosinophils % 4.4 %; Hematocrit 24.1 % (35.3-44.9); Hemoglobin 6.8 g/dL (11.5-15.4); Immature Granulocytes % 0.4 % (0-4); Lymphocytes # 1.9 K/mcL (0.6-4.6); Lymphocytes % 18.1 %; Mean Corpuscular HGB Conc 28.2 g/dL (31.6-35.5); Mean Corpuscular Hemoglobin 23.8 pg (28.0-33.3); Mean Corpuscular Volume 84.3 fL (83.0-100.0); Mean Platelet Volume 9.1 fL (9.4-12.4); Monocytes # 0.7 K/mcL (0.0-1.3); Monocytes % 6.4 %; Neutrophils # 7.3 K/mcL (1.6-8.9); Platelet Count 437 K/mcL (140-400); Red Blood Count 2.86 M/mcL (3.82-4.97); White Blood Count 10.4 K/mcL (4.3-11.1)
[2019-12-16 01:10] LABS: BUN/Creatinine Ratio 23 (6-26); Blood Urea Nitrogen 14 mg/dL (8-23); Calcium 9.1 mg/dL (8.6-10.3); Carbon Dioxide 31 mEq/L (23-29); Chloride 105 mEq/L (98-107); Glucose 114 mg/dL (70-105); Osmolality,Calculated 299 (280-300); Potassium 3.5 mEq/L (3.5-5.1); Sodium 144 mEq/L (136-145); eGFR For African Americans > 60 (> 60); eGFR For Non-African Americans > 60 (> 60)
[2019-12-16 01:12] LABS: Anisocytosis 1+ (Not Present); Hypochromasia Present (Not Present); Macrocytosis Present (Not Present); Platelet Estimate Normal (Normal); Troponin I < 0.03 ng/mL (< 0.04)
[2019-12-16] MEDS ORDERED: Pantoprazole 40 MG VIAL IVP ONE (01:24)
[2019-12-16 02:18] LABS: Mean Corpuscular Hemoglobin 23.7 pg (28.0-33.3); Platelet Count 439 K/mcL (140-400)
[2019-12-16 02:19] LABS: Hematocrit 25.2 % (35.3-44.9); Mean Corpuscular HGB Conc 27.8 g/dL (31.6-35.5); Mean Corpuscular Volume 85.4 fL (83.0-100.0); Mean Platelet Volume 9.2 fL (9.4-12.4); Red Blood Count 2.95 M/mcL (3.82-4.97); Red Cell Distribution Width 17.2 % (11.5-14.5); White Blood Count 12.3 K/mcL (4.3-11.1)
[2019-12-16] MEDS ORDERED: Ondansetron 4 MG/2 ML VIAL IVP ONE (02:53)
[2019-12-16] MEDS ORDERED: Mag Hydrox/Al Hydrox/Simeth 30 ML UDC PO PRN (03:30)
[2019-12-16] MEDS ORDERED: Acetaminophen 325 MG TABLET PO PRN (03:30)
[2019-12-16] MEDS ORDERED: *HR* Promethazine 25 MG/ML VIAL IVP PRN ×2 (03:30→22:39)
[2019-12-16] MEDS ORDERED: Naloxone 0.4 MG/ML INJ IVP PRN ×2 (03:30→22:38)
[2019-12-16] MEDS ORDERED: Levalbuterol Neb 1.25 MG/3 ML IH SCH (04:00)
[2019-12-16] MEDS ORDERED: Ipratropium Neb 0.5 MG NEBULIZER IH SCH (04:00)
[2019-12-16] MEDS ORDERED: Benzonatate 100 MG CAPSULE PO PRN ×2 (04:40→22:34)
[2019-12-16] MEDS ORDERED: 0.9 % Sodium Chloride 1,000 ML IVC SCH ×2 (04:45→22:45)
[2019-12-16] MEDS ORDERED: 0.9 % Sodium Chloride 250 ML ONE (06:02)
[2019-12-16] MEDS: Doxycycline 100 MG in 0.9 % Sodium Chloride Mini Bag 100 ML IVPB SCH ×2 (06:07→18:09)
[2019-12-16] MEDS: *HR* Metoprolol 5 MG/5 ML VIAL IVP SCH ×3 (06:09→18:10)
[2019-12-16] MEDS: Insulin LISPRO 300 UNITS/3 ML VIAL SQ SCH ×4 (06:20→23:44)
[2019-12-16] MEDS ORDERED: MethylPREDNISolone 40 MG/ML VIAL IVP SCH (08:00)
[2019-12-16] MEDS: Levalbuterol 1 PUFF INHALER IH SCH ×4 (08:48→19:48)
[2019-12-16] MEDS: Ipratropium 1 PUFF INHALER IH SCH ×4 (08:48→19:49)
[2019-12-16] MEDS ORDERED: Levalbuterol 1 PUFF INHALER IH PRN (08:49)
[2019-12-16] MEDS ORDERED: Ipratropium 1 PUFF INHALER IH PRN (08:53)
[2019-12-16] MEDS ORDERED: Levalbuterol 1 PUFF INHALER IH SCH (10:00)
[2019-12-16] MEDS ORDERED: Ipratropium 1 PUFF INHALER IH SCH (10:00)
[2019-12-16 12:14] LABS: Hematocrit 26.5 % (35.3-44.9); Hemoglobin 7.6 g/dL (11.5-15.4)
[2019-12-16] MEDS ORDERED: SODIUM CHLORIDE/NAHCO3/KCL/PEG 4,000 ML SOLN.RECON PO ONE (17:00)
[2019-12-16] MEDS ORDERED: Pantoprazole 40 MG VIAL IVP SCH (18:00)
[2019-12-16] MEDS ORDERED: Insulin DETEMIR 100 UNIT/ML X5UNITS SQ SCH (21:00)
[2019-12-16] MEDS: Ipratropium Neb 0.5 MG NEBULIZER IH SCH ×2 (23:15→23:50)
[2019-12-16] MEDS: Pantoprazole 40 MG VIAL IVP SCH (23:15)
[2019-12-16] MEDS: Insulin DETEMIR 100 UNIT/ML X5UNITS SQ SCH (23:16)
[2019-12-16] MEDS: Levalbuterol Neb 1.25 MG/3 ML IH SCH ×2 (23:16→23:49)
[2019-12-16] MEDS ORDERED: Ipratropium Neb 0.5 MG NEBULIZER ONE (23:47)
[2019-12-16] MEDS ORDERED: Levalbuterol Neb 1.25 MG/3 ML ONE (23:47)
[2019-12-17 00:13] LABS: Hemoglobin 7.9 g/dL (11.5-15.4)
[2019-12-17 01:10] LABS: Adenovirus Not Detected (Not Detect); Bordetella Pertussis Not Detected (Not Detect); Chlamydophila pneumoniae Not Detected (Not Detect); Coronavirus 229E Not Detected (Not Detect); Coronavirus HKU1 Not Detected (Not Detect); Coronavirus NL63 Not Detected (Not Detect); Coronavirus OC43 Not Detected (Not Detect); Human Metapneumovirus Not Detected (Not Detect); Human Rhinovirus/Enterovirus Not Detected (Not Detect); Influenza A Subtype 2009 H1 Not Detected (Not Detect); Influenza B Not Detected (Not Detect); Mycoplasma pneumoniae Not Detected (Not Detect); Parainfluenza Virus 1 Not Detected (Not Detect); Parainfluenza Virus 2 Not Detected (Not Detect); Parainfluenza Virus 3 Not Detected (Not Detect); Parainfluenza Virus 4 Not Detected (Not Detect); Respiratory Syncytial Virus Not Detected (Not Detect)
[2019-12-17] MEDS: Ipratropium Neb 0.5 MG NEBULIZER IH SCH ×4 (03:28→21:37)
[2019-12-17] MEDS: Levalbuterol Neb 1.25 MG/3 ML IH SCH ×4 (03:28→21:38)
[2019-12-17] MEDS: Doxycycline 100 MG in 0.9 % Sodium Chloride Mini Bag 100 ML IVPB SCH ×2 (05:45→17:55)
[2019-12-17] MEDS: Insulin LISPRO 300 UNITS/3 ML VIAL SQ SCH ×4 (05:46→21:12)
[2019-12-17] MEDS: Pantoprazole 40 MG VIAL IVP SCH ×2 (05:46→17:54)
[2019-12-17 06:21] LABS: Hemoglobin 6.7 g/dL (11.5-15.4)
[2019-12-17 06:22] LABS: Hematocrit 23.4 % (35.3-44.9); Mean Corpuscular HGB Conc 28.6 g/dL (31.6-35.5); Mean Corpuscular Hemoglobin 24.9 pg (28.0-33.3); Mean Platelet Volume 9.4 fL (9.4-12.4); Platelet Count 329 K/mcL (140-400); Red Blood Count 2.69 M/mcL (3.82-4.97); Red Cell Distribution Width 17.2 % (11.5-14.5); White Blood Count 11.6 K/mcL (4.3-11.1)
[2019-12-17 06:42] LABS: BUN/Creatinine Ratio 28 (6-26); Blood Urea Nitrogen 12 mg/dL (8-23); Carbon Dioxide 29 mEq/L (23-29); Chloride 111 mEq/L (98-107); Glucose 89 mg/dL (70-105); Osmolality,Calculated 295 (280-300); Potassium 3.2 mEq/L (3.5-5.1); Sodium 143 mEq/L (136-145); eGFR For African Americans > 60 (> 60); eGFR For Non-African Americans > 60 (> 60)
[2019-12-17] MEDS ORDERED: Levalbuterol Neb 0.63 MG/3 ML IH PRN (08:01)
[2019-12-17] MEDS ORDERED: Fluticasone Propionate Nasal 50 MCG/SPRAY BOTTLE NS PRN (09:25)
[2019-12-17] MEDS ORDERED: Ipratropium/Albuterol Neb 3 ML IH PRN (09:28)
[2019-12-17] MEDS ORDERED: 0.9 % Sodium Chloride 250 ML ONE (10:20)
[2019-12-17] MEDS ORDERED: Albuterol 2.5 MG/3 ML NEBULIZER ONE (12:55)
[2019-12-17] MEDS ORDERED: Albuterol 2.5 MG/3 ML NEBULIZER IH ONE (13:00)
[2019-12-17 17:43] LABS: Hematocrit 29.4 % (35.3-44.9)
[2019-12-17 17:49] LABS: Hemoglobin 8.7 g/dL (11.5-15.4)
[2019-12-17] MEDS: Latanoprost 2.5 ML BOTTLE BOTH EYES SCH (21:13)
[2019-12-17] MEDS: Insulin DETEMIR 100 UNIT/ML X5UNITS SQ SCH (21:14)
[2019-12-18] MEDS: Ipratropium Neb 0.5 MG NEBULIZER IH SCH (04:02)
[2019-12-18] MEDS: Levalbuterol Neb 1.25 MG/3 ML IH SCH (04:02)
[2019-12-18] MEDS: Pantoprazole 40 MG VIAL IVP SCH (06:13)
[2019-12-18] MEDS: Doxycycline 100 MG in 0.9 % Sodium Chloride Mini Bag 100 ML IVPB SCH (06:13)
[2019-12-18] MEDS: Insulin LISPRO 300 UNITS/3 ML VIAL SQ SCH ×4 (07:48→21:29)
[2019-12-18] MEDS ORDERED: NON-FORMULARY MEDICATION 1 EACH EACH (Ezetimibe [Zetia] 10 MG) PO SCH (09:00)
[2019-12-18] MEDS ORDERED: NON-FORMULARY MEDICATION 1 EACH EACH (Umeclidinium Bromide [Incruse Ellipta] 1 PUFF) IH SCH (09:00)
[2019-12-18] MEDS ORDERED: NON-FORMULARY MEDICATION 1 EACH EACH (Roflumilast [Daliresp] 500 MCG) PO SCH (09:00)
[2019-12-18] MEDS ORDERED: Furosemide 20 MG TABLET PO SCH (09:00)
[2019-12-18 09:05] LABS: Basophils # 0.1 K/mcL (0.0-0.2); Basophils % 0.6 %; Eosinophils # 0.3 K/mcL (0.0-0.6); Eosinophils % 3.3 %; Hematocrit 32.4 % (35.3-44.9); Hemoglobin 9.5 g/dL (11.5-15.4); Immature Granulocytes % 0.5 % (0-4); Lymphocytes # 1.4 K/mcL (0.6-4.6); Lymphocytes % 15.8 %; Mean Corpuscular HGB Conc 29.3 g/dL (31.6-35.5); Mean Corpuscular Hemoglobin 24.9 pg (28.0-33.3); Mean Platelet Volume 8.8 fL (9.4-12.4); Monocytes # 0.7 K/mcL (0.0-1.3); Monocytes % 7.5 %; Neutrophils # 6.4 K/mcL (1.6-8.9); Platelet Count 362 K/mcL (140-400); Red Blood Count 3.81 M/mcL (3.82-4.97); Red Cell Distribution Width 17.8 % (11.5-14.5); Segmented Neutrophils % 72.3 %; White Blood Count 8.8 K/mcL (4.3-11.1)
[2019-12-18 09:19] LABS: BUN/Creatinine Ratio 26 (6-26); Blood Urea Nitrogen 13 mg/dL (8-23); Calcium 8.6 mg/dL (8.6-10.3); Carbon Dioxide 28 mEq/L (23-29); Chloride 109 mEq/L (98-107); Glucose 113 mg/dL (70-105); Osmolality,Calculated 295 (280-300); Potassium 3.5 mEq/L (3.5-5.1); Sodium 142 mEq/L (136-145); eGFR For African Americans > 60 (> 60); eGFR For Non-African Americans > 60 (> 60)
[2019-12-18] MEDS: Loratadine 10 MG TABLET PO SCH (10:18)
[2019-12-18] MEDS: Cyanocobalamin (B-12) 1,000 MCG TABLET PO SCH (10:19)
[2019-12-18] MEDS: cefTRIAXone 1,000 MG in Water for inj. (sterile) 10 ML IVP SCH (10:19)
[2019-12-18] MEDS: Azithromycin 500 MG in 0.9 % Sodium Chloride 250 ML IVPB SCH (10:20)
[2019-12-18] MEDS: Levalbuterol Neb 0.63 MG/3 ML IH SCH ×3 (10:45→21:29)
[2019-12-18] MEDS: Tiotropium 18 MCG inhalation IH SCH (10:45)
[2019-12-18] MEDS: Furosemide 40 MG/4 ML VIAL IVP SCH (11:36)
[2019-12-18] MEDS: Ipratropium Neb 0.5 MG NEBULIZER IH PRN (17:28)
[2019-12-18] MEDS: Latanoprost 2.5 ML BOTTLE BOTH EYES SCH (21:31)
[2019-12-18] MEDS: Insulin DETEMIR 100 UNIT/ML X5UNITS SQ SCH (21:47)
[2019-12-19] MEDS: Ipratropium Neb 0.5 MG NEBULIZER IH PRN ×5 (00:26→23:44)
[2019-12-19] MEDS: Levalbuterol Neb 0.63 MG/3 ML IH SCH ×5 (03:52→23:44)
[2019-12-19 05:46] LABS: Basophils % 0.5 %; Eosinophils # 0.5 K/mcL (0.0-0.6); Eosinophils % 5.3 %; Hematocrit 30.3 % (35.3-44.9); Hemoglobin 8.9 g/dL (11.5-15.4); Immature Granulocytes % 0.3 % (0-4); Lymphocytes # 1.6 K/mcL (0.6-4.6); Lymphocytes % 18.2 %; Mean Corpuscular HGB Conc 29.4 g/dL (31.6-35.5); Mean Corpuscular Hemoglobin 25.1 pg (28.0-33.3); Mean Corpuscular Volume 85.6 fL (83.0-100.0); Mean Platelet Volume 9.3 fL (9.4-12.4); Monocytes # 0.7 K/mcL (0.0-1.3); Monocytes % 7.9 %; Neutrophils # 5.9 K/mcL (1.6-8.9); Platelet Count 314 K/mcL (140-400); Red Blood Count 3.54 M/mcL (3.82-4.97); Red Cell Distribution Width 18.1 % (11.5-14.5); Segmented Neutrophils % 67.8 %; White Blood Count 8.6 K/mcL (4.3-11.1)
[2019-12-19 06:08] LABS: BUN/Creatinine Ratio 40 (6-26); Blood Urea Nitrogen 21 mg/dL (8-23); Calcium 8.7 mg/dL (8.6-10.3); Carbon Dioxide 33 mEq/L (23-29); Chloride 106 mEq/L (98-107); Glucose 110 mg/dL (70-105); Osmolality,Calculated 298 (280-300); Potassium 3.7 mEq/L (3.5-5.1); Sodium 142 mEq/L (136-145); eGFR For African Americans > 60 (> 60); eGFR For Non-African Americans > 60 (> 60)
[2019-12-19] MEDS: Insulin LISPRO 300 UNITS/3 ML VIAL SQ SCH ×4 (07:39→20:38)
[2019-12-19] MEDS: Tiotropium 18 MCG inhalation IH SCH (08:10)
[2019-12-19] MEDS: cefTRIAXone 1,000 MG in Water for inj. (sterile) 10 ML IVP SCH (09:21)
[2019-12-19] MEDS: Azithromycin 500 MG in 0.9 % Sodium Chloride 250 ML IVPB SCH (09:22)
[2019-12-19] MEDS: Loratadine 10 MG TABLET PO SCH (09:25)
[2019-12-19] MEDS: Cyanocobalamin (B-12) 1,000 MCG TABLET PO SCH (09:25)
[2019-12-19] MEDS: Furosemide 40 MG/4 ML VIAL IVP SCH (09:25)
[2019-12-19] MEDS ORDERED: Acetaminophen 325 MG TABLET PO ONE (16:36)
[2019-12-19] MEDS: Insulin DETEMIR 100 UNIT/ML X5UNITS SQ SCH (20:40)
[2019-12-19] MEDS: Latanoprost 2.5 ML BOTTLE BOTH EYES SCH (20:51)
[2019-12-20] MEDS: Levalbuterol Neb 0.63 MG/3 ML IH SCH ×7 (04:04→23:49)
[2019-12-20] MEDS: Ipratropium Neb 0.5 MG NEBULIZER IH PRN ×3 (04:05→15:34)
[2019-12-20 07:31] LABS: VBG HCO3 34 mEq/L (21-27); VBG PCO2 56 mmHg (41-51); VBG PH 7.39 pH Units (7.32-7.42); VBG PO2 157 mmHg (25-50)
[2019-12-20] MEDS ORDERED: MethylPREDNISolone 40 MG/ML VIAL IVP ONE (07:34)
[2019-12-20] MEDS: Tiotropium 18 MCG inhalation IH SCH (07:54)
[2019-12-20] MEDS: cefTRIAXone 1,000 MG in Water for inj. (sterile) 10 ML IVP SCH (08:32)
[2019-12-20] MEDS: Cyanocobalamin (B-12) 1,000 MCG TABLET PO SCH (08:34)
[2019-12-20] MEDS: Loratadine 10 MG TABLET PO SCH (08:34)
[2019-12-20] MEDS: Azithromycin 500 MG in 0.9 % Sodium Chloride 250 ML IVPB SCH (08:34)
[2019-12-20] MEDS: Furosemide 40 MG/4 ML VIAL IVP SCH (08:35)
[2019-12-20] MEDS: Insulin LISPRO 300 UNITS/3 ML VIAL SQ SCH ×4 (08:36→20:30)
[2019-12-20] MEDS ORDERED: 0.9 % Sodium Chloride 1,000 ML IV.SOLN IV ONE (09:19)
[2019-12-20] MEDS ORDERED: *HR* Phenylephrine 10 MG/ML VIAL IVC ONE (09:19)
[2019-12-20] MEDS ORDERED: Lidocaine 2% Syringe 100 MG/5 ML IV ONE (09:19)
[2019-12-20] MEDS ORDERED: *HR* Propofol 500 MG/50 ML BOTTLE IVC ONE (09:19)
[2019-12-20 09:37] LABS: Mean Corpuscular Volume 87.4 fL (83.0-100.0); Red Cell Distribution Width 18.4 % (11.5-14.5)
[2019-12-20 09:39] LABS: Basophils # 0.1 K/mcL (0.0-0.2); Basophils % 0.6 %; Eosinophils # 0.5 K/mcL (0.0-0.6); Hematocrit 34.1 % (35.3-44.9); Immature Granulocytes % 0.4 % (0-4); Lymphocytes # 1.2 K/mcL (0.6-4.6); Lymphocytes % 12.6 %; Mean Corpuscular HGB Conc 29.3 g/dL (31.6-35.5); Mean Corpuscular Hemoglobin 25.6 pg (28.0-33.3); Mean Platelet Volume 9.2 fL (9.4-12.4); Monocytes # 0.6 K/mcL (0.0-1.3); Monocytes % 6.3 %; Neutrophils # 7.3 K/mcL (1.6-8.9); Platelet Count 302 K/mcL (140-400); Segmented Neutrophils % 75.1 %; White Blood Count 9.7 K/mcL (4.3-11.1)
[2019-12-20 09:47] LABS: BUN/Creatinine Ratio 46 (6-26); Blood Urea Nitrogen 22 mg/dL (8-23); Calcium 8.8 mg/dL (8.6-10.3); Carbon Dioxide 30 mEq/L (23-29); Chloride 103 mEq/L (98-107); Glucose 156 mg/dL (70-105); Osmolality,Calculated 301 (280-300); Potassium 4.1 mEq/L (3.5-5.1); Sodium 142 mEq/L (136-145); eGFR For African Americans > 60 (> 60); eGFR For Non-African Americans > 60 (> 60)
[2019-12-20] MEDS: Latanoprost 2.5 ML BOTTLE BOTH EYES SCH (20:28)
[2019-12-20] MEDS: Insulin DETEMIR 100 UNIT/ML X5UNITS SQ SCH (20:29)
[2019-12-20 21:12] LABS: BUN/Creatinine Ratio 40 (6-26); Blood Urea Nitrogen 23 mg/dL (8-23); Calcium 9.6 mg/dL (8.6-10.3); Carbon Dioxide 31 mEq/L (23-29); Chloride 103 mEq/L (98-107); Glucose 239 mg/dL (70-105); Osmolality,Calculated 301 (280-300); Potassium 4.2 mEq/L (3.5-5.1); Sodium 140 mEq/L (136-145); eGFR For African Americans > 60 (> 60); eGFR For Non-African Americans > 60 (> 60)
[2019-12-21] MEDS: Levalbuterol Neb 0.63 MG/3 ML IH SCH ×4 (03:39→14:23)
[2019-12-21] MEDS: Tiotropium 18 MCG inhalation IH SCH (07:50)
[2019-12-21] MEDS: Ipratropium Neb 0.5 MG NEBULIZER IH PRN (10:33)
[2019-12-21] MEDS: Insulin LISPRO 300 UNITS/3 ML VIAL SQ SCH (10:54)
[2019-12-21 11:04] VITALS: BP 119/60
[2019-12-21] MEDS: Furosemide 40 MG/4 ML VIAL IVP SCH (11:05)
[2019-12-21] MEDS: Cyanocobalamin (B-12) 1,000 MCG TABLET PO SCH (11:06)
[2019-12-21] MEDS: cefTRIAXone 1,000 MG in Water for inj. (sterile) 10 ML IVP SCH (11:06)
[2019-12-21] MEDS: Loratadine 10 MG TABLET PO SCH (11:06)
== END 2019-12-21 14:41 | disposition home or self-care (01) | DRG 871 ==
LOC: 2NENU 00:19 → EMEROOARM 00:19 → 2NENU 03:26 → SUATTDRO 03:30 → 2NENU 11:38 → 3ANU 20:12
PROVIDERS: ADMIT Internal Medicine; ATTEND Internal Medicine
PROC: ENDOCBX (2019-12-17 13:00)
PROC: ENDOEBX (2019-12-17 13:00)

== ENCOUNTER 2019-12-27 05:59 | Inpatient (IN) ==
[2019-12-27] MEDS ORDERED: methylPREDNISolone 125 MG/2 ML VIAL IVP ONE (06:04)
[2019-12-27] MEDS ORDERED: Ipratropium/Albuterol Neb 3 ML IH ONE ×2 (06:16→06:27)
[2019-12-27] MEDS ORDERED: 0.9 % Sodium Chloride 500 ML IVC ONE (06:29)
[2019-12-27] MEDS ORDERED: Azithromycin 250 MG TABLET PO ONE (06:31)
[2019-12-27 06:37] LABS: VBG HCO3 33 mEq/L (21-27); VBG PCO2 67 mmHg (41-51); VBG PO2 56 mmHg (25-50)
[2019-12-27 06:41] LABS: Mean Corpuscular HGB Conc 28.6 g/dL (31.6-35.5); Red Cell Distribution Width 19.1 % (11.5-14.5); Segmented Neutrophils % 58.9 %
[2019-12-27 06:42] LABS: Basophils # 0.1 K/mcL (0.0-0.2); Basophils % 0.9 %; Eosinophils % 10.9 %; Hematocrit 38.1 % (35.3-44.9); Hemoglobin 10.9 g/dL (11.5-15.4); Immature Granulocytes % 0.4 % (0-4); Lymphocytes # 2.1 K/mcL (0.6-4.6); Lymphocytes % 22.1 %; Mean Corpuscular Hemoglobin 25.1 pg (28.0-33.3); Mean Corpuscular Volume 87.8 fL (83.0-100.0); Mean Platelet Volume 9.5 fL (9.4-12.4); Monocytes # 0.6 K/mcL (0.0-1.3); Monocytes % 6.8 %; Neutrophils # 5.5 K/mcL (1.6-8.9); Platelet Count 346 K/mcL (140-400); Red Blood Count 4.34 M/mcL (3.82-4.97); White Blood Count 9.4 K/mcL (4.3-11.1)
[2019-12-27 06:56] LABS: Anisocytosis 1+ (Not Present); Platelet Estimate Normal (Normal)
[2019-12-27 06:59] LABS: Alanine Aminotransferase 22 Units/L (7-52); Albumin 4.4 g/dL (3.5-5.7); Albumin/Globulin Ratio 1.6 (1.1-2.2); Alkaline Phosphatase 43 Units/L (34-104); Aspartate Amino Transferase 21 Units/L (13-39); BUN/Creatinine Ratio 32 (6-26); Bilirubin,Total 0.5 mg/dL (0.3-1.0); Blood Urea Nitrogen 18 mg/dL (8-23); Calcium 9.6 mg/dL (8.6-10.3); Carbon Dioxide 31 mEq/L (23-29); Chloride 105 mEq/L (98-107); Globulin 2.7 g/dL (2.4-3.5); Glucose 134 mg/dL (70-105); Osmolality,Calculated 290 (280-300); Sodium 138 mEq/L (136-145); Total Protein 7.1 g/dL (6.4-8.9); eGFR For African Americans > 60 (> 60); eGFR For Non-African Americans > 60 (> 60)
[2019-12-27] MEDS ORDERED: Naloxone 0.4 MG/ML INJ IVP PRN (08:25)
[2019-12-27] MEDS ORDERED: Ondansetron 4 MG/2 ML VIAL IVP PRN (08:25)
[2019-12-27] MEDS ORDERED: Ipratropium/Albuterol Neb 3 ML IH PRN (08:26)
[2019-12-27] MEDS ORDERED: *HR* LORazepam 2 MG/ML VIAL IVP ONE (08:43)
[2019-12-27] MEDS ORDERED: Nitroglycerin 0.4 MG TAB.SUBL SL PRN (09:25)
[2019-12-27] MEDS ORDERED: *HR* Dextrose 50 % in Water (Syg) 50 ML SYRINGE IVP PRN (09:28)
[2019-12-27] MEDS ORDERED: Dextrose Gel 15 GM/37.5 ML TUBE PO PRN ×2 (09:28)
[2019-12-27] MEDS ORDERED: D5% in Water 1,000 ML IVC PRN (09:28)
[2019-12-27] MEDS ORDERED: Levalbuterol Neb 1.25 MG/3 ML IH SCH (10:00)
[2019-12-27] MEDS: Levalbuterol 1 PUFF INHALER IH SCH ×2 (10:00→15:13)
[2019-12-27] MEDS ORDERED: Ipratropium Neb 0.5 MG NEBULIZER IH SCH (10:00)
[2019-12-27] MEDS: Ipratropium 1 PUFF INHALER IH SCH ×2 (10:00→15:12)
[2019-12-27] MEDS: Budesonide/Formoterol 160/4.5 1 PUFF INH IH SCH ×2 (10:01→20:41)
[2019-12-27] MEDS: Insulin LISPRO 300 UNITS/3 ML VIAL SQ SCH ×3 (11:44→20:46)
[2019-12-27] MEDS ORDERED: MethylPREDNISolone 40 MG/ML VIAL IVP SCH (16:00)
[2019-12-27] MEDS: methylPREDNISolone 125 MG/2 ML VIAL IVP SCH ×2 (16:59→23:28)
[2019-12-27] MEDS: *HR* Rivaroxaban 10 MG TABLET PO SCH (17:00)
[2019-12-27] MEDS: Levalbuterol Neb 1.25 MG/3 ML IH SCH (20:38)
[2019-12-27] MEDS: Ipratropium Neb 0.5 MG NEBULIZER IH SCH (20:38)
[2019-12-27] MEDS: Latanoprost 2.5 ML BOTTLE BOTH EYES SCH (22:22)
[2019-12-28 02:08] LABS: Basophils % 0.1 %; Hematocrit 32.8 % (35.3-44.9); Hemoglobin 9.5 g/dL (11.5-15.4); Immature Granulocytes % 0.3 % (0-4); Lymphocytes # 0.4 K/mcL (0.6-4.6); Lymphocytes % 3.9 %; Mean Corpuscular Hemoglobin 25.1 pg (28.0-33.3); Mean Corpuscular Volume 86.8 fL (83.0-100.0); Mean Platelet Volume 10.2 fL (9.4-12.4); Monocytes # 0.1 K/mcL (0.0-1.3); Monocytes % 1.1 %; Neutrophils # 8.7 K/mcL (1.6-8.9); Platelet Count 315 K/mcL (140-400); Red Blood Count 3.78 M/mcL (3.82-4.97); Red Cell Distribution Width 18.7 % (11.5-14.5); Segmented Neutrophils % 94.6 %; White Blood Count 9.2 K/mcL (4.3-11.1)
[2019-12-28 02:25] LABS: BUN/Creatinine Ratio 24 (6-26); Blood Urea Nitrogen 21 mg/dL (8-23); Calcium 9.4 mg/dL (8.6-10.3); Carbon Dioxide 28 mEq/L (23-29); Chloride 101 mEq/L (98-107); Glucose 251 mg/dL (70-105); Osmolality,Calculated 297 (280-300); Potassium 4.5 mEq/L (3.5-5.1); Sodium 138 mEq/L (136-145); eGFR For African Americans > 60 (> 60); eGFR For Non-African Americans > 60 (> 60)
[2019-12-28] MEDS: Ipratropium Neb 0.5 MG NEBULIZER IH SCH ×4 (04:01→21:08)
[2019-12-28] MEDS: Levalbuterol Neb 1.25 MG/3 ML IH SCH ×3 (04:01→15:54)
[2019-12-28] MEDS: Loratadine 10 MG TABLET PO SCH (08:38)
[2019-12-28] MEDS: Azithromycin 250 MG TABLET PO SCH (08:39)
[2019-12-28] MEDS: methylPREDNISolone 125 MG/2 ML VIAL IVP SCH ×3 (08:39→23:34)
[2019-12-28] MEDS: Aspirin 81 MG TAB.CHEW PO SCH (08:39)
[2019-12-28] MEDS: Cyanocobalamin (B-12) 1,000 MCG TABLET PO SCH (08:39)
[2019-12-28] MEDS: Furosemide 20 MG TABLET PO SCH (08:39)
[2019-12-28] MEDS: Fluticasone Propionate Nasal 50 MCG/SPRAY BOTTLE NS PRN (08:40)
[2019-12-28] MEDS: Insulin LISPRO 300 UNITS/3 ML VIAL SQ SCH ×4 (08:43→20:29)
[2019-12-28] MEDS ORDERED: Roflumilast [Daliresp] 500 MCG PO SCH (09:00)
[2019-12-28] MEDS: Budesonide Neb 0.5 MG/2 ML IH SCH ×2 (09:57→21:07)
[2019-12-28] MEDS ORDERED: Tiotropium 18 MCG inhalation IH SCH (10:00)
[2019-12-28 13:40] LABS: Acinetobacter baumannii by PCR Not Detected (Not Detect); Candida albicans by PCR Not Detected (Not Detect); Candida glabrata by PCR Not Detected (Not Detect); Candida krusei by PCR Not Detected (Not Detect); Candida parapsilosis by PCR Not Detected (Not Detect); Candida tropicalis by PCR Not Detected (Not Detect); Enterobacter cloacae Cmplx PCR Not Detected (Not Detect); Enterobacteriaceae by PCR Not Detected (Not Detect); Enterococcus by PCR Not Detected (Not Detect); Escherichia coli by PCR Not Detected (Not Detect); Klebsiella oxytoca by PCR Not Detected (Not Detect); Klebsiella pneumoniae by PCR Not Detected (Not Detect); Proteus by PCR Not Detected (Not Detect); Pseudomonas aeruginosa by PCR Not Detected (Not Detect); Serratia marcescens by PCR Not Detected (Not Detect); Staphylococcus aureus by PCR Not Detected (Not Detect); Staphylococcus by PCR DETECTED (Not Detect); Streptococcus agalactiae(B)PCR Not Detected (Not Detect); Streptococcus by PCR Not Detected (Not Detect); Streptococcus pneumoniae PCR Not Detected (Not Detect); Streptococcus pyogenes (A) PCR Not Detected (Not Detect); mecA Methicillin-Resist Gene DETECTED (Not Detect)
[2019-12-28] MEDS: *HR* Rivaroxaban 10 MG TABLET PO SCH (17:56)
[2019-12-28] MEDS: Latanoprost 2.5 ML BOTTLE BOTH EYES SCH (20:16)
[2019-12-28] MEDS: Levalbuterol Neb 0.63 MG/3 ML IH SCH (21:07)
[2019-12-29 02:32] LABS: Basophils % 0.2 %; Eosinophils % 0.1 %; Hemoglobin 9.5 g/dL (11.5-15.4); Immature Granulocytes % 0.5 % (0-4); Lymphocytes # 0.7 K/mcL (0.6-4.6); Lymphocytes % 3.8 %; Mean Corpuscular HGB Conc 29.7 g/dL (31.6-35.5); Mean Corpuscular Hemoglobin 25.4 pg (28.0-33.3); Mean Corpuscular Volume 85.6 fL (83.0-100.0); Monocytes # 0.6 K/mcL (0.0-1.3); Monocytes % 3.5 %; Neutrophils # 16.4 K/mcL (1.6-8.9); Platelet Count 351 K/mcL (140-400); Red Blood Count 3.74 M/mcL (3.82-4.97); Red Cell Distribution Width 19.3 % (11.5-14.5); Segmented Neutrophils % 91.9 %
[2019-12-29 02:35] LABS: White Blood Count 17.8 K/mcL (4.3-11.1)
[2019-12-29 02:47] LABS: VBG HCO3 34 mEq/L (21-27); VBG PCO2 61 mmHg (41-51); VBG PH 7.36 pH Units (7.32-7.42); VBG PO2 162 mmHg (25-50)
[2019-12-29 02:52] LABS: BUN/Creatinine Ratio 46 (6-26); Blood Urea Nitrogen 32 mg/dL (8-23); Calcium 10.1 mg/dL (8.6-10.3); Carbon Dioxide 33 mEq/L (23-29); Chloride 102 mEq/L (98-107); Glucose 179 mg/dL (70-105); Magnesium 2.2 mg/dL (1.6-2.6); Osmolality,Calculated 301 (280-300); Potassium 4.4 mEq/L (3.5-5.1); Sodium 140 mEq/L (136-145); eGFR For African Americans > 60 (> 60); eGFR For Non-African Americans > 60 (> 60)
[2019-12-29] MEDS: Ipratropium Neb 0.5 MG NEBULIZER IH SCH ×4 (03:21→21:47)
[2019-12-29] MEDS: Levalbuterol Neb 0.63 MG/3 ML IH SCH ×4 (03:21→21:47)
[2019-12-29] MEDS: Budesonide Neb 0.5 MG/2 ML IH SCH ×2 (07:57→21:47)
[2019-12-29] MEDS ORDERED: PATIENT TAKING OP SCH (09:30)
[2019-12-29] MEDS: Cyanocobalamin (B-12) 1,000 MCG TABLET PO SCH (09:43)
[2019-12-29] MEDS: Furosemide 20 MG TABLET PO SCH (09:43)
[2019-12-29] MEDS: Loratadine 10 MG TABLET PO SCH (09:43)
[2019-12-29] MEDS: methylPREDNISolone 125 MG/2 ML VIAL IVP SCH (09:44)
[2019-12-29] MEDS: Azithromycin 250 MG TABLET PO SCH (09:44)
[2019-12-29] MEDS: Fluticasone Propionate Nasal 50 MCG/SPRAY BOTTLE NS PRN (09:44)
[2019-12-29] MEDS: Aspirin 81 MG TAB.CHEW PO SCH (09:44)
[2019-12-29] MEDS: Insulin LISPRO 300 UNITS/3 ML VIAL SQ SCH ×4 (09:44→20:25)
[2019-12-29] MEDS: PATIENT TAKING OP SCH ×2 (12:22→20:25)
[2019-12-29] MEDS: MethylPREDNISolone 40 MG/ML VIAL IVP SCH ×2 (16:55→23:10)
[2019-12-29] MEDS: *HR* Rivaroxaban 10 MG TABLET PO SCH (16:55)
[2019-12-29] MEDS: Furosemide 20 MG/2 ML VIAL IVP SCH (16:56)
[2019-12-29] MEDS: Latanoprost 2.5 ML BOTTLE BOTH EYES SCH (20:25)
[2019-12-29] MEDS ORDERED: Insulin DETEMIR 100 UNIT/ML X5UNITS SQ SCH (21:00)
[2019-12-30 01:50] LABS: Basophils % 0.1 %; Hematocrit 32.5 % (35.3-44.9); Hemoglobin 9.5 g/dL (11.5-15.4); Immature Granulocytes % 0.6 % (0-4); Lymphocytes # 0.8 K/mcL (0.6-4.6); Lymphocytes % 4.6 %; Mean Corpuscular HGB Conc 29.2 g/dL (31.6-35.5); Mean Corpuscular Hemoglobin 24.8 pg (28.0-33.3); Mean Corpuscular Volume 84.9 fL (83.0-100.0); Mean Platelet Volume 10.2 fL (9.4-12.4); Monocytes # 0.4 K/mcL (0.0-1.3); Monocytes % 2.5 %; Neutrophils # 14.9 K/mcL (1.6-8.9); Platelet Count 405 K/mcL (140-400); Red Blood Count 3.83 M/mcL (3.82-4.97); Red Cell Distribution Width 18.9 % (11.5-14.5); Segmented Neutrophils % 92.2 %; White Blood Count 16.2 K/mcL (4.3-11.1)
[2019-12-30 02:03] LABS: BUN/Creatinine Ratio 61 (6-26); Blood Urea Nitrogen 38 mg/dL (8-23); Calcium 9.2 mg/dL (8.6-10.3); Carbon Dioxide 34 mEq/L (23-29); Chloride 96 mEq/L (98-107); Glucose 250 mg/dL (70-105); Magnesium 2.1 mg/dL (1.6-2.6); Osmolality,Calculated 301 (280-300); Potassium 3.7 mEq/L (3.5-5.1); Sodium 137 mEq/L (136-145); eGFR For African Americans > 60 (> 60); eGFR For Non-African Americans > 60 (> 60)
[2019-12-30] MEDS: Ipratropium Neb 0.5 MG NEBULIZER IH SCH ×4 (03:14→21:15)
[2019-12-30] MEDS: Levalbuterol Neb 0.63 MG/3 ML IH SCH ×4 (03:14→21:15)
[2019-12-30] MEDS: Furosemide 20 MG/2 ML VIAL IVP SCH (08:19)
[2019-12-30] MEDS: Insulin LISPRO 300 UNITS/3 ML VIAL SQ SCH ×7 (08:19→20:17)
[2019-12-30] MEDS: Loratadine 10 MG TABLET PO SCH (08:20)
[2019-12-30] MEDS: Azithromycin 250 MG TABLET PO SCH (08:20)
[2019-12-30] MEDS: Insulin DETEMIR 100 UNIT/ML X5UNITS SQ SCH ×2 (08:20→20:17)
[2019-12-30] MEDS: Cyanocobalamin (B-12) 1,000 MCG TABLET PO SCH (08:20)
[2019-12-30] MEDS: MethylPREDNISolone 40 MG/ML VIAL IVP SCH ×3 (08:20→23:34)
[2019-12-30] MEDS: Aspirin 81 MG TAB.CHEW PO SCH (08:20)
[2019-12-30] MEDS: PATIENT TAKING OP SCH ×2 (08:21→20:35)
[2019-12-30] MEDS: Budesonide Neb 0.5 MG/2 ML IH SCH ×2 (08:37→21:15)
[2019-12-30] MEDS: Furosemide 40 MG/4 ML VIAL IVP SCH (16:50)
[2019-12-30] MEDS: *HR* Rivaroxaban 10 MG TABLET PO SCH (16:50)
[2019-12-30] MEDS: Doxycycline 100 MG CAPSULE PO SCH (20:17)
[2019-12-30] MEDS: Latanoprost 2.5 ML BOTTLE BOTH EYES SCH (20:18)
[2019-12-31 02:28] LABS: Basophils % 0.1 %; Hematocrit 27.6 % (35.3-44.9); Hemoglobin 8.2 g/dL (11.5-15.4); Immature Granulocytes % 0.7 % (0-4); Lymphocytes # 0.7 K/mcL (0.6-4.6); Lymphocytes % 5.7 %; Mean Corpuscular HGB Conc 29.7 g/dL (31.6-35.5); Mean Corpuscular Hemoglobin 25.2 pg (28.0-33.3); Mean Corpuscular Volume 84.7 fL (83.0-100.0); Mean Platelet Volume 10.2 fL (9.4-12.4); Monocytes # 0.4 K/mcL (0.0-1.3); Neutrophils # 11.7 K/mcL (1.6-8.9); Platelet Count 318 K/mcL (140-400); Red Blood Count 3.26 M/mcL (3.82-4.97); Red Cell Distribution Width 18.7 % (11.5-14.5); Segmented Neutrophils % 90.5 %; White Blood Count 12.9 K/mcL (4.3-11.1)
[2019-12-31 02:37] LABS: BUN/Creatinine Ratio 67 (6-26); Blood Urea Nitrogen 44 mg/dL (8-23); Calcium 9.1 mg/dL (8.6-10.3); Carbon Dioxide 37 mEq/L (23-29); Chloride 99 mEq/L (98-107); Glucose 240 mg/dL (70-105); Magnesium 2.3 mg/dL (1.6-2.6); Osmolality,Calculated 309 (280-300); Phosphorous 3.5 mg/dL (2.7-4.5); Potassium 3.9 mEq/L (3.5-5.1); Sodium 140 mEq/L (136-145); eGFR For African Americans > 60 (> 60); eGFR For Non-African Americans > 60 (> 60)
[2019-12-31] MEDS: Levalbuterol Neb 0.63 MG/3 ML IH SCH ×2 (03:42→09:04)
[2019-12-31] MEDS: Ipratropium Neb 0.5 MG NEBULIZER IH SCH ×4 (03:42→21:00)
[2019-12-31] MEDS: Insulin LISPRO 300 UNITS/3 ML VIAL SQ SCH ×7 (08:37→20:29)
[2019-12-31] MEDS: Doxycycline 100 MG CAPSULE PO SCH ×2 (08:37→20:27)
[2019-12-31] MEDS: Furosemide 40 MG/4 ML VIAL IVP SCH ×2 (08:38→16:50)
[2019-12-31] MEDS: MethylPREDNISolone 40 MG/ML VIAL IVP SCH ×2 (08:38→16:50)
[2019-12-31] MEDS: Aspirin 81 MG TAB.CHEW PO SCH (08:38)
[2019-12-31] MEDS: Cyanocobalamin (B-12) 1,000 MCG TABLET PO SCH (08:38)
[2019-12-31] MEDS: Loratadine 10 MG TABLET PO SCH (08:38)
[2019-12-31] MEDS: PATIENT TAKING OP SCH ×2 (08:42→23:04)
[2019-12-31] MEDS: Insulin DETEMIR 100 UNIT/ML X5UNITS SQ SCH ×2 (08:42→20:29)
[2019-12-31] MEDS: Budesonide Neb 0.5 MG/2 ML IH SCH ×2 (09:04→20:42)
[2019-12-31 09:51] LABS: ABG Base Excess 15 mEq/L (-2 to 3); ABG HCO3 42 mEq/L (21-27); ABG Oxygen Saturation 100 % (95-98); ABG PCO2 67 mmHg (35-45); ABG PH 7.41 pH Units (7.32-7.45); ABG PO2 176 mmHg (85-104); ABG TCO2 44 mEq/L (20-26); Blood Gas Modality AVAPS; Blood Gas VT 450 cc
[2019-12-31] MEDS: Ipratropium/Albuterol Neb 3 ML IH SCH ×4 (13:19→23:54)
[2019-12-31] MEDS: *HR* Rivaroxaban 10 MG TABLET PO SCH (16:50)
[2019-12-31] MEDS: Latanoprost 2.5 ML BOTTLE BOTH EYES SCH (20:30)
[2020-01-01] MEDS: MethylPREDNISolone 40 MG/ML VIAL IVP SCH ×3 (00:27→16:33)
[2020-01-01 02:08] LABS: Basophils % 0.1 %; Hematocrit 28.4 % (35.3-44.9); Hemoglobin 8.6 g/dL (11.5-15.4); Immature Granulocytes % 0.9 % (0-4); Lymphocytes # 0.9 K/mcL (0.6-4.6); Lymphocytes % 5.2 %; Mean Corpuscular HGB Conc 30.3 g/dL (31.6-35.5); Mean Corpuscular Hemoglobin 25.9 pg (28.0-33.3); Mean Corpuscular Volume 85.5 fL (83.0-100.0); Mean Platelet Volume 10.3 fL (9.4-12.4); Monocytes # 0.6 K/mcL (0.0-1.3); Monocytes % 3.3 %; Neutrophils # 15.9 K/mcL (1.6-8.9); Platelet Count 334 K/mcL (140-400); Red Blood Count 3.32 M/mcL (3.82-4.97); Red Cell Distribution Width 19.2 % (11.5-14.5); Segmented Neutrophils % 90.5 %; White Blood Count 17.5 K/mcL (4.3-11.1)
[2020-01-01 02:24] LABS: BUN/Creatinine Ratio 67 (6-26); Blood Urea Nitrogen 53 mg/dL (8-23); Calcium 9.1 mg/dL (8.6-10.3); Carbon Dioxide 35 mEq/L (23-29); Chloride 97 mEq/L (98-107); Glucose 329 mg/dL (70-105); Magnesium 2.2 mg/dL (1.6-2.6); Osmolality,Calculated 315 (280-300); Phosphorous 4.1 mg/dL (2.7-4.5); Potassium 4.1 mEq/L (3.5-5.1); Sodium 139 mEq/L (136-145); eGFR For African Americans > 60 (> 60); eGFR For Non-African Americans > 60 (> 60)
[2020-01-01] MEDS: Ipratropium/Albuterol Neb 3 ML IH SCH ×6 (03:51→23:41)
[2020-01-01] MEDS: Ipratropium Neb 0.5 MG NEBULIZER IH SCH ×2 (04:30→10:40)
[2020-01-01] MEDS: Budesonide Neb 0.5 MG/2 ML IH SCH ×2 (07:45→20:02)
[2020-01-01] MEDS: Doxycycline 100 MG CAPSULE PO SCH ×2 (08:57→20:49)
[2020-01-01] MEDS: Furosemide 40 MG/4 ML VIAL IVP SCH ×2 (08:57→16:33)
[2020-01-01] MEDS: Cyanocobalamin (B-12) 1,000 MCG TABLET PO SCH (08:57)
[2020-01-01] MEDS: Loratadine 10 MG TABLET PO SCH (08:57)
[2020-01-01] MEDS: Aspirin 81 MG TAB.CHEW PO SCH (08:57)
[2020-01-01] MEDS: PATIENT TAKING OP SCH ×2 (08:58→21:03)
[2020-01-01] MEDS: Insulin DETEMIR 100 UNIT/ML X5UNITS SQ SCH ×2 (08:58→20:51)
[2020-01-01] MEDS: Insulin LISPRO 300 UNITS/3 ML VIAL SQ SCH ×6 (08:59→20:51)
[2020-01-01] MEDS ORDERED: Acetaminophen 325 MG TABLET PO PRN (16:18)
[2020-01-01] MEDS: *HR* Rivaroxaban 10 MG TABLET PO SCH (16:32)
[2020-01-01] MEDS ORDERED: Insulin Human Regular 5 UNIT in 0.9 % Sodium Chloride 10 ML IV ONE (20:03)
[2020-01-01] MEDS: Latanoprost 2.5 ML BOTTLE BOTH EYES SCH (20:52)
[2020-01-02 03:10] LABS: Basophils % 0.1 %; Hematocrit 22.2 % (35.3-44.9); Immature Granulocytes % 1.7 % (0-4); Lymphocytes # 0.9 K/mcL (0.6-4.6); Lymphocytes % 6.3 %; Mean Corpuscular HGB Conc 30.6 g/dL (31.6-35.5); Mean Corpuscular Hemoglobin 25.3 pg (28.0-33.3); Mean Corpuscular Volume 82.5 fL (83.0-100.0); Mean Platelet Volume 10.9 fL (9.4-12.4); Monocytes # 0.6 K/mcL (0.0-1.3); Monocytes % 4.5 %; Neutrophils # 12.5 K/mcL (1.6-8.9); Nucleated Red Blood Cells 0.3 /100 WBC (0); Platelet Count 324 K/mcL (140-400); Red Blood Count 2.69 M/mcL (3.82-4.97); Segmented Neutrophils % 87.4 %; White Blood Count 14.3 K/mcL (4.3-11.1)
[2020-01-02 03:11] LABS: Hemoglobin 6.8 g/dL (11.5-15.4)
[2020-01-02 03:20] LABS: BUN/Creatinine Ratio 86 (6-26); Blood Urea Nitrogen 56 mg/dL (8-23); Calcium 9.3 mg/dL (8.6-10.3); Carbon Dioxide 34 mEq/L (23-29); Chloride 97 mEq/L (98-107); Glucose 249 mg/dL (70-105); Osmolality,Calculated 316 (280-300); Phosphorous 4.8 mg/dL (2.7-4.5); Potassium 3.6 mEq/L (3.5-5.1); Sodium 141 mEq/L (136-145); eGFR For African Americans > 60 (> 60); eGFR For Non-African Americans > 60 (> 60)
[2020-01-02] MEDS: Ipratropium/Albuterol Neb 3 ML IH SCH ×6 (03:42→23:38)
[2020-01-02] MEDS: MethylPREDNISolone 40 MG/ML VIAL IVP SCH (05:27)
[2020-01-02] MEDS: Budesonide Neb 0.5 MG/2 ML IH SCH ×2 (07:40→19:57)
[2020-01-02 08:21] LABS: Hematocrit 26.2 % (35.3-44.9); Hemoglobin 7.8 g/dL (11.5-15.4)
[2020-01-02] MEDS ORDERED: 0.9 % Sodium Chloride 250 ML ONE (09:34)
[2020-01-02] MEDS: Insulin LISPRO 300 UNITS/3 ML VIAL SQ SCH ×7 (10:07→20:58)
[2020-01-02] MEDS: Doxycycline 100 MG CAPSULE PO SCH ×2 (10:08→20:58)
[2020-01-02] MEDS: Furosemide 40 MG/4 ML VIAL IVP SCH ×2 (10:09→16:43)
[2020-01-02] MEDS: PATIENT TAKING OP SCH ×2 (10:09→21:01)
[2020-01-02] MEDS: Loratadine 10 MG TABLET PO SCH (10:09)
[2020-01-02] MEDS: Cyanocobalamin (B-12) 1,000 MCG TABLET PO SCH (10:10)
[2020-01-02] MEDS: Insulin DETEMIR 100 UNIT/ML X5UNITS SQ SCH ×2 (10:30→21:00)
[2020-01-02] MEDS: Pantoprazole 40 MG VIAL IVP SCH ×2 (13:24→16:46)
[2020-01-02 16:03] LABS: Hematocrit 28.5 % (35.3-44.9); Hemoglobin 8.8 g/dL (11.5-15.4)
[2020-01-02 16:15] LABS: INR 1.1; Prothrombin Time 12.1 Seconds (9.4-12.1)
[2020-01-02] MEDS: Sucralfate 1 GM TABLET PO SCH ×2 (16:43→23:23)
[2020-01-02] MEDS: Latanoprost 2.5 ML BOTTLE BOTH EYES SCH (20:58)
[2020-01-03 01:51] LABS: Basophils % 0.2 %; Eosinophils # 0.1 K/mcL (0.0-0.6); Eosinophils % 0.3 %; Hematocrit 27.5 % (35.3-44.9); Hemoglobin 8.5 g/dL (11.5-15.4); Immature Granulocytes % 1.7 % (0-4); Lymphocytes # 3.1 K/mcL (0.6-4.6); Lymphocytes % 17.6 %; Mean Corpuscular HGB Conc 30.9 g/dL (31.6-35.5); Mean Corpuscular Hemoglobin 26.4 pg (28.0-33.3); Mean Corpuscular Volume 85.4 fL (83.0-100.0); Mean Platelet Volume 10.1 fL (9.4-12.4); Monocytes # 1.3 K/mcL (0.0-1.3); Monocytes % 7.3 %; Neutrophils # 12.7 K/mcL (1.6-8.9); Nucleated Red Blood Cells 0.3 /100 WBC (0); Platelet Count 288 K/mcL (140-400); Red Blood Count 3.22 M/mcL (3.82-4.97); Red Cell Distribution Width 17.8 % (11.5-14.5); Segmented Neutrophils % 72.9 %; White Blood Count 17.4 K/mcL (4.3-11.1)
[2020-01-03 01:58] LABS: BUN/Creatinine Ratio 76 (6-26); Blood Urea Nitrogen 39 mg/dL (8-23); Carbon Dioxide 36 mEq/L (23-29); Chloride 99 mEq/L (98-107); Glucose 50 mg/dL (70-105); Magnesium 2.1 mg/dL (1.6-2.6); Osmolality,Calculated 297 (280-300); Phosphorous 4.2 mg/dL (2.7-4.5); Potassium 3.4 mEq/L (3.5-5.1); Sodium 140 mEq/L (136-145); eGFR For African Americans > 60 (> 60); eGFR For Non-African Americans > 60 (> 60)
[2020-01-03] MEDS: Ipratropium/Albuterol Neb 3 ML IH SCH ×6 (03:39→23:54)
[2020-01-03] MEDS: Pantoprazole 40 MG VIAL IVP SCH ×2 (05:25→17:49)
[2020-01-03] MEDS: Budesonide Neb 0.5 MG/2 ML IH SCH ×2 (07:28→19:54)
[2020-01-03] MEDS: Insulin LISPRO 300 UNITS/3 ML VIAL SQ SCH ×7 (08:01→21:35)
[2020-01-03] MEDS: Insulin DETEMIR 100 UNIT/ML X5UNITS SQ SCH (08:03)
[2020-01-03] MEDS ORDERED: D10% in Water 500 ML IVC SCH (08:15)
[2020-01-03] MEDS: PATIENT TAKING OP SCH ×2 (08:15→20:25)
[2020-01-03] MEDS: predniSONE 20 MG TABLET PO SCH (08:16)
[2020-01-03] MEDS: Furosemide 40 MG/4 ML VIAL IVP SCH ×2 (08:16→17:48)
[2020-01-03] MEDS: Sucralfate 1 GM TABLET PO SCH ×4 (08:16→20:26)
[2020-01-03] MEDS: Doxycycline 100 MG CAPSULE PO SCH ×2 (08:16→20:26)
[2020-01-03] MEDS: Cyanocobalamin (B-12) 1,000 MCG TABLET PO SCH (08:16)
[2020-01-03] MEDS: Loratadine 10 MG TABLET PO SCH (08:16)
[2020-01-03] MEDS ORDERED: Lidocaine -MPF 2% 2 ML VIAL ONE (08:17)
[2020-01-03 16:11] LABS: Hematocrit 32.4 % (35.3-44.9); Hemoglobin 9.8 g/dL (11.5-15.4)
[2020-01-03] MEDS ORDERED: SODIUM CHLORIDE/NAHCO3/KCL/PEG 4,000 ML SOLN.RECON PO ONE (17:00)
[2020-01-03] MEDS: Latanoprost 2.5 ML BOTTLE BOTH EYES SCH (20:26)
[2020-01-04] MEDS: Ipratropium/Albuterol Neb 3 ML IH SCH ×4 (03:15→15:42)
[2020-01-04 04:56] LABS: Basophils % 0.1 %; Eosinophils # 0.3 K/mcL (0.0-0.6); Eosinophils % 1.7 %; Hematocrit 28.4 % (35.3-44.9); Lymphocytes # 2.5 K/mcL (0.6-4.6); Lymphocytes % 15.1 %; Mean Corpuscular HGB Conc 31.7 g/dL (31.6-35.5); Mean Corpuscular Hemoglobin 26.7 pg (28.0-33.3); Mean Corpuscular Volume 84.3 fL (83.0-100.0); Mean Platelet Volume 10.3 fL (9.4-12.4); Monocytes # 1.1 K/mcL (0.0-1.3); Monocytes % 6.5 %; Neutrophils # 12.5 K/mcL (1.6-8.9); Nucleated Red Blood Cells 0.1 /100 WBC (0); Platelet Count 268 K/mcL (140-400); Red Blood Count 3.37 M/mcL (3.82-4.97); Red Cell Distribution Width 17.9 % (11.5-14.5); Segmented Neutrophils % 75.6 %; White Blood Count 16.5 K/mcL (4.3-11.1)
[2020-01-04 05:07] LABS: BUN/Creatinine Ratio 53 (6-26); Blood Urea Nitrogen 23 mg/dL (8-23); Calcium 8.5 mg/dL (8.6-10.3); Carbon Dioxide 34 mEq/L (23-29); Chloride 92 mEq/L (98-107); Glucose 94 mg/dL (70-105); Magnesium 2.1 mg/dL (1.6-2.6); Osmolality,Calculated 287 (280-300); Phosphorous 3.9 mg/dL (2.7-4.5); Potassium 2.9 mEq/L (3.5-5.1); Sodium 137 mEq/L (136-145); eGFR For African Americans > 60 (> 60); eGFR For Non-African Americans > 60 (> 60)
[2020-01-04] MEDS: Pantoprazole 40 MG VIAL IVP SCH (05:34)
[2020-01-04] MEDS: Sucralfate 1 GM TABLET PO SCH ×2 (07:48→11:21)
[2020-01-04] MEDS: Cyanocobalamin (B-12) 1,000 MCG TABLET PO SCH (07:48)
[2020-01-04] MEDS: Loratadine 10 MG TABLET PO SCH (07:48)
[2020-01-04] MEDS: Doxycycline 100 MG CAPSULE PO SCH (07:49)
[2020-01-04] MEDS: predniSONE 20 MG TABLET PO SCH (07:49)
[2020-01-04] MEDS: Furosemide 40 MG/4 ML VIAL IVP SCH (07:54)
[2020-01-04] MEDS: Insulin LISPRO 300 UNITS/3 ML VIAL SQ SCH ×4 (08:08→12:02)
[2020-01-04] MEDS: Budesonide Neb 0.5 MG/2 ML IH SCH (08:14)
[2020-01-04] MEDS: Insulin DETEMIR 100 UNIT/ML X5UNITS SQ SCH (10:50)
[2020-01-04] MEDS: PATIENT TAKING OP SCH (10:51)
[2020-01-04] MEDS ORDERED: 0.9 % Sodium Chloride 500 ML IVC SCH (12:30)
[2020-01-04 15:22] VITALS: BP 101/63
[2020-01-04] MEDS ORDERED: *HR* Propofol 500 MG/50 ML BOTTLE IVC ONE (16:23)
[2020-01-04] MEDS ORDERED: Lidocaine 2% Syringe 100 MG/5 ML IV ONE (16:23)
== END 2020-01-04 16:24 | disposition home or self-care (01) | DRG 190 ==
LOC: EMEROOARM 05:59 → 2NENU 05:59 → SUATTDRO 08:25 → 2NENU 09:25 → 2ANU 19:27 → SUATTDRO 12-28 15:36
PROVIDERS: ADMIT Family Medicine; ATTEND Internal Medicine

== ENCOUNTER 2020-02-06 17:02 | Inpatient (IN) ==
[2020-02-06] MEDS ORDERED: Ipratropium/Albuterol Neb 3 ML IH ONE (17:10)
[2020-02-06] MEDS ORDERED: methylPREDNISolone 125 MG/2 ML VIAL IVP ONE (17:10)
[2020-02-06 17:29] LABS: Basophils # 0.1 K/mcL (0.0-0.2); Basophils % 0.7 %; Eosinophils # 0.3 K/mcL (0.0-0.6); Eosinophils % 3.3 %; Hematocrit 34.1 % (35.3-44.9); Hemoglobin 9.7 g/dL (11.5-15.4); Immature Granulocytes % 0.4 % (0-4); Lymphocytes # 1.3 K/mcL (0.6-4.6); Lymphocytes % 15.1 %; Mean Corpuscular HGB Conc 28.4 g/dL (31.6-35.5); Mean Corpuscular Hemoglobin 26.2 pg (28.0-33.3); Monocytes # 0.6 K/mcL (0.0-1.3); Monocytes % 7.2 %; Neutrophils # 6.2 K/mcL (1.6-8.9); Platelet Count 352 K/mcL (140-400); Red Cell Distribution Width 17.2 % (11.5-14.5); Segmented Neutrophils % 73.3 %; White Blood Count 8.4 K/mcL (4.3-11.1)
[2020-02-06 17:31] LABS: Mean Corpuscular Volume 92.2 fL (83.0-100.0)
[2020-02-06] MEDS ORDERED: Azithromycin 500 MG in 0.9 % Sodium Chloride 250 ML IVPB ONE (17:40)
[2020-02-06 17:48] LABS: BUN/Creatinine Ratio 23 (6-26); Blood Urea Nitrogen 12 mg/dL (8-23); Calcium 9.4 mg/dL (8.6-10.3); Carbon Dioxide 31 mEq/L (23-29); Chloride 107 mEq/L (98-107); Glucose 125 mg/dL (70-105); Osmolality,Calculated 299 (280-300); Potassium 3.9 mEq/L (3.5-5.1); Sodium 144 mEq/L (136-145); Troponin I < 0.03 ng/mL (< 0.04); eGFR For African Americans > 60 (> 60); eGFR For Non-African Americans > 60 (> 60)
[2020-02-06] MEDS ORDERED: 0.9 % Sodium Chloride 500 ML ONE (18:16)
[2020-02-06] MEDS ORDERED: *HR* Dextrose 50 % in Water (Vial) 50 ML VIAL IVP PRN (20:24)
[2020-02-06] MEDS ORDERED: Dextrose Gel 15 GM/37.5 ML TUBE PO PRN ×2 (20:24)
[2020-02-06] MEDS ORDERED: D5% in Water 1,000 ML IVC PRN (20:24)
[2020-02-06] MEDS ORDERED: Furosemide 20 MG/2 ML VIAL IVP ONE (21:14)
[2020-02-06] MEDS: Insulin LISPRO 300 UNITS/3 ML VIAL SQ SCH ×2 (21:20→21:41)
[2020-02-06] MEDS ORDERED: Acetaminophen 325 MG TABLET PO PRN (21:44)
[2020-02-06 22:23] LABS: VBG HCO3 35 mEq/L (21-27); VBG PCO2 65 mmHg (41-51); VBG PH 7.34 pH Units (7.32-7.42); VBG PO2 131 mmHg (25-50)
[2020-02-06] MEDS: Ipratropium/Albuterol Neb 3 ML IH SCH (22:52)
[2020-02-06] MEDS: MethylPREDNISolone 40 MG/ML VIAL IVP SCH (23:48)
[2020-02-07 04:12] LABS: Basophils % 0.3 %; Hematocrit 32.2 % (35.3-44.9); Hemoglobin 9.5 g/dL (11.5-15.4); Immature Granulocytes % 0.4 % (0-4); Lymphocytes # 0.4 K/mcL (0.6-4.6); Lymphocytes % 6.1 %; Mean Corpuscular HGB Conc 29.5 g/dL (31.6-35.5); Mean Corpuscular Hemoglobin 27.1 pg (28.0-33.3); Mean Corpuscular Volume 91.7 fL (83.0-100.0); Mean Platelet Volume 9.2 fL (9.4-12.4); Monocytes % 0.4 %; Neutrophils # 6.4 K/mcL (1.6-8.9); Platelet Count 307 K/mcL (140-400); Red Blood Count 3.51 M/mcL (3.82-4.97); Segmented Neutrophils % 92.8 %; White Blood Count 6.9 K/mcL (4.3-11.1)
[2020-02-07] MEDS: Ipratropium/Albuterol Neb 3 ML IH SCH ×5 (04:20→23:25)
[2020-02-07 04:32] LABS: Alanine Aminotransferase 14 Units/L (7-52); Albumin 4.1 g/dL (3.5-5.7); Albumin/Globulin Ratio 1.6 (1.1-2.2); Alkaline Phosphatase 35 Units/L (34-104); Aspartate Amino Transferase 15 Units/L (13-39); BUN/Creatinine Ratio 27 (6-26); Bilirubin,Total 0.3 mg/dL (0.3-1.0); Blood Urea Nitrogen 16 mg/dL (8-23); Calcium 9.9 mg/dL (8.6-10.3); Carbon Dioxide 29 mEq/L (23-29); Chloride 105 mEq/L (98-107); Globulin 2.5 g/dL (2.4-3.5); Glucose 186 mg/dL (70-105); Osmolality,Calculated 300 (280-300); Potassium 4.3 mEq/L (3.5-5.1); Sodium 142 mEq/L (136-145); Total Protein 6.6 g/dL (6.4-8.9); eGFR For African Americans > 60 (> 60); eGFR For Non-African Americans > 60 (> 60)
[2020-02-07] MEDS: MethylPREDNISolone 40 MG/ML VIAL IVP SCH ×4 (05:45→22:08)
[2020-02-07] MEDS: Insulin LISPRO 300 UNITS/3 ML VIAL SQ SCH ×4 (07:42→20:09)
[2020-02-07] MEDS ORDERED: Ipratropium/Albuterol Neb 3 ML IH PRN (09:41)
[2020-02-07] MEDS ORDERED: Acetaminophen IV 500 MG/50 ML INFUS..BTL IVPB ONE (09:44)
[2020-02-07] MEDS: Azithromycin 500 MG in 0.9 % Sodium Chloride 250 ML IVPB SCH (17:18)
[2020-02-07] MEDS ORDERED: Budesonide/Formoterol 160/4.5 1 PUFF INH IH PRN (18:18)
[2020-02-07] MEDS ORDERED: Tiotropium 18 MCG inhalation IH PRN (18:18)
[2020-02-07] MEDS ORDERED: Fluticasone Propionate Nasal 50 MCG/SPRAY BOTTLE NS PRN (18:18)
[2020-02-07] MEDS: Furosemide 20 MG TABLET PO SCH (18:54)
[2020-02-07] MEDS: Budesonide/Formoterol 160/4.5 1 PUFF INH IH SCH (19:52)
[2020-02-07] MEDS ORDERED: MethylPREDNISolone 40 MG/ML VIAL IVP SCH (20:00)
[2020-02-07] MEDS: Latanoprost 2.5 ML BOTTLE BOTH EYES SCH (20:09)
[2020-02-07] MEDS: (Cyclosporine [Restasis] 1 DROP) OP SCH (20:54)
[2020-02-07] MEDS: Sucralfate 1 GM TABLET PO SCH (21:52)
[2020-02-08] MEDS: Ipratropium/Albuterol Neb 3 ML IH SCH ×5 (03:41→20:16)
[2020-02-08] MEDS: MethylPREDNISolone 40 MG/ML VIAL IVP SCH ×3 (05:49→21:34)
[2020-02-08] MEDS: Sucralfate 1 GM TABLET PO SCH ×4 (06:42→21:34)
[2020-02-08] MEDS: Budesonide/Formoterol 160/4.5 1 PUFF INH IH SCH ×2 (08:10→20:16)
[2020-02-08] MEDS: Aspirin Enteric Coated 81 MG Tablet PO SCH (08:24)
[2020-02-08] MEDS: Cyanocobalamin (B-12) 1,000 MCG TABLET PO SCH (08:25)
[2020-02-08] MEDS: Insulin LISPRO 300 UNITS/3 ML VIAL SQ SCH ×4 (08:26→20:27)
[2020-02-08] MEDS: Furosemide 20 MG TABLET PO SCH ×2 (08:26→16:03)
[2020-02-08] MEDS: Loratadine 10 MG TABLET PO SCH (08:26)
[2020-02-08 08:33] LABS: BUN/Creatinine Ratio 38 (6-26); Blood Urea Nitrogen 31 mg/dL (8-23); Calcium 9.4 mg/dL (8.6-10.3); Carbon Dioxide 30 mEq/L (23-29); Chloride 105 mEq/L (98-107); Glucose 208 mg/dL (70-105); Osmolality,Calculated 303 (280-300); Potassium 4.1 mEq/L (3.5-5.1); Sodium 140 mEq/L (136-145); eGFR For African Americans > 60 (> 60); eGFR For Non-African Americans > 60 (> 60)
[2020-02-08 08:42] LABS: Basophils % 0.1 %; Hematocrit 31.7 % (35.3-44.9); Hemoglobin 9.2 g/dL (11.5-15.4); Immature Granulocytes % 0.6 % (0-4); Lymphocytes # 0.5 K/mcL (0.6-4.6); Lymphocytes % 3.2 %; Mean Corpuscular Hemoglobin 26.4 pg (28.0-33.3); Mean Corpuscular Volume 90.8 fL (83.0-100.0); Mean Platelet Volume 9.6 fL (9.4-12.4); Monocytes # 0.4 K/mcL (0.0-1.3); Monocytes % 2.5 %; Neutrophils # 13.6 K/mcL (1.6-8.9); Platelet Count 316 K/mcL (140-400); Red Blood Count 3.49 M/mcL (3.82-4.97); Red Cell Distribution Width 17.1 % (11.5-14.5); Segmented Neutrophils % 93.6 %
[2020-02-08] MEDS ORDERED: NON-FORMULARY MEDICATION 1 EACH EACH (Ezetimibe [Zetia] 10 MG) PO SCH (09:00)
[2020-02-08] MEDS ORDERED: NON-FORMULARY MEDICATION 1 EACH EACH (Roflumilast [Daliresp] 500 MCG) PO SCH (09:00)
[2020-02-08 09:02] LABS: White Blood Count 14.5 K/mcL (4.3-11.1)
[2020-02-08] MEDS ORDERED: Tiotropium 18 MCG inhalation IH SCH (10:00)
[2020-02-08] MEDS: Azithromycin 500 MG in 0.9 % Sodium Chloride 250 ML IVPB SCH (16:13)
[2020-02-08] MEDS: (Cyclosporine [Restasis] 1 DROP) OP SCH (20:26)
[2020-02-08] MEDS: Latanoprost 2.5 ML BOTTLE BOTH EYES SCH (20:26)
[2020-02-09] MEDS: Ipratropium/Albuterol Neb 3 ML IH SCH ×6 (00:04→20:04)
[2020-02-09] MEDS: MethylPREDNISolone 40 MG/ML VIAL IVP SCH ×3 (05:19→21:03)
[2020-02-09 06:34] LABS: Basophils % 0.1 %; Hematocrit 31.9 % (35.3-44.9); Hemoglobin 9.4 g/dL (11.5-15.4); Immature Granulocytes % 0.6 % (0-4); Lymphocytes # 0.7 K/mcL (0.6-4.6); Lymphocytes % 4.7 %; Mean Corpuscular HGB Conc 29.5 g/dL (31.6-35.5); Mean Corpuscular Hemoglobin 26.5 pg (28.0-33.3); Mean Corpuscular Volume 89.9 fL (83.0-100.0); Mean Platelet Volume 9.6 fL (9.4-12.4); Monocytes # 0.4 K/mcL (0.0-1.3); Monocytes % 2.7 %; Neutrophils # 14.5 K/mcL (1.6-8.9); Platelet Count 299 K/mcL (140-400); Red Blood Count 3.55 M/mcL (3.82-4.97); Red Cell Distribution Width 16.8 % (11.5-14.5); Segmented Neutrophils % 91.9 %; White Blood Count 15.7 K/mcL (4.3-11.1)
[2020-02-09 06:58] LABS: BUN/Creatinine Ratio 57 (6-26); Blood Urea Nitrogen 32 mg/dL (8-23); Calcium 9.5 mg/dL (8.6-10.3); Carbon Dioxide 32 mEq/L (23-29); Chloride 103 mEq/L (98-107); Glucose 202 mg/dL (70-105); Osmolality,Calculated 303 (280-300); Potassium 4.1 mEq/L (3.5-5.1); Sodium 140 mEq/L (136-145); eGFR For African Americans > 60 (> 60); eGFR For Non-African Americans > 60 (> 60)
[2020-02-09] MEDS: Budesonide/Formoterol 160/4.5 1 PUFF INH IH SCH ×2 (07:48→20:05)
[2020-02-09] MEDS: Loratadine 10 MG TABLET PO SCH (07:58)
[2020-02-09] MEDS: Aspirin Enteric Coated 81 MG Tablet PO SCH (07:58)
[2020-02-09] MEDS: Sucralfate 1 GM TABLET PO SCH ×4 (07:58→21:01)
[2020-02-09] MEDS: Cyanocobalamin (B-12) 1,000 MCG TABLET PO SCH (07:58)
[2020-02-09] MEDS: Furosemide 20 MG TABLET PO SCH ×2 (07:58→16:14)
[2020-02-09] MEDS: Insulin LISPRO 300 UNITS/3 ML VIAL SQ SCH ×4 (07:59→21:02)
[2020-02-09] MEDS: Acetylcysteine 10% 2 ML INHSOL IH SCH ×2 (15:20→20:05)
[2020-02-09] MEDS: Azithromycin 500 MG in 0.9 % Sodium Chloride 250 ML IVPB SCH (16:14)
[2020-02-09] MEDS: Latanoprost 2.5 ML BOTTLE BOTH EYES SCH (21:02)
[2020-02-09] MEDS: (Cyclosporine [Restasis] 1 DROP) OP SCH (21:12)
[2020-02-10] MEDS: Ipratropium/Albuterol Neb 3 ML IH SCH ×7 (00:11→23:45)
[2020-02-10] MEDS: MethylPREDNISolone 40 MG/ML VIAL IVP SCH (05:24)
[2020-02-10] MEDS: Sucralfate 1 GM TABLET PO SCH ×4 (05:24→20:28)
[2020-02-10 06:10] LABS: Hematocrit 31.1 % (35.3-44.9); Hemoglobin 9.2 g/dL (11.5-15.4); Immature Reticulocyte % 25.4 % (11.0-38.0); Mean Corpuscular HGB Conc 29.6 g/dL (31.6-35.5); Mean Corpuscular Volume 91.2 fL (83.0-100.0); Mean Platelet Volume 9.8 fL (9.4-12.4); Platelet Count 284 K/mcL (140-400); Red Blood Count 3.41 M/mcL (3.82-4.97); Red Cell Distribution Width 16.8 % (11.5-14.5); Retculocyte # 0.08 M/mcL (0.05-0.10); Reticulocyte % 2.5 % (1.6-2.8); White Blood Count 11.2 K/mcL (4.3-11.1)
[2020-02-10 06:55] LABS: % Iron Saturation 3 % (15-50); BUN/Creatinine Ratio 53 (6-26); Blood Urea Nitrogen 28 mg/dL (8-23); Calcium 8.9 mg/dL (8.6-10.3); Carbon Dioxide 30 mEq/L (23-29); Chloride 105 mEq/L (98-107); Glucose 214 mg/dL (70-105); Iron 14 mcg/dL (50-170); Osmolality,Calculated 308 (280-300); Potassium 3.9 mEq/L (3.5-5.1); Sodium 143 mEq/L (136-145); Transferrin 318 mg/dL (203-362); eGFR For African Americans > 60 (> 60); eGFR For Non-African Americans > 60 (> 60)
[2020-02-10 07:02] LABS: Ferritin 28 ng/mL (10-120)
[2020-02-10 07:07] LABS: Folate 10.3 ng/mL (3.0-16.0)
[2020-02-10] MEDS: Budesonide/Formoterol 160/4.5 1 PUFF INH IH SCH ×2 (07:21→19:36)
[2020-02-10] MEDS: Loratadine 10 MG TABLET PO SCH (07:55)
[2020-02-10] MEDS: Furosemide 20 MG TABLET PO SCH ×2 (07:55→16:51)
[2020-02-10] MEDS: Aspirin Enteric Coated 81 MG Tablet PO SCH (07:55)
[2020-02-10] MEDS: Cyanocobalamin (B-12) 1,000 MCG TABLET PO SCH (07:55)
[2020-02-10] MEDS: Insulin LISPRO 300 UNITS/3 ML VIAL SQ SCH ×4 (07:57→20:28)
[2020-02-10] MEDS: (Cyclosporine [Restasis] 1 DROP) OP SCH (20:29)
[2020-02-10] MEDS: Latanoprost 2.5 ML BOTTLE BOTH EYES SCH (20:29)
[2020-02-11] MEDS: Ipratropium/Albuterol Neb 3 ML IH SCH ×3 (03:37→11:01)
[2020-02-11 06:54] VITALS: BP 113/62
[2020-02-11] MEDS: Budesonide/Formoterol 160/4.5 1 PUFF INH IH SCH (07:18)
[2020-02-11 07:30] LABS: Hemoglobin 9.3 g/dL (11.5-15.4); Red Cell Distribution Width 16.6 % (11.5-14.5)
[2020-02-11 07:32] LABS: Hematocrit 30.7 % (35.3-44.9); Mean Corpuscular HGB Conc 30.3 g/dL (31.6-35.5); Mean Corpuscular Hemoglobin 27.4 pg (28.0-33.3); Mean Corpuscular Volume 90.6 fL (83.0-100.0); Mean Platelet Volume 9.4 fL (9.4-12.4); Platelet Count 248 K/mcL (140-400); Red Blood Count 3.39 M/mcL (3.82-4.97); White Blood Count 10.7 K/mcL (4.3-11.1)
[2020-02-11] MEDS: Furosemide 20 MG TABLET PO SCH (08:14)
[2020-02-11] MEDS: Loratadine 10 MG TABLET PO SCH (08:15)
[2020-02-11] MEDS: Cyanocobalamin (B-12) 1,000 MCG TABLET PO SCH (08:15)
[2020-02-11] MEDS: Aspirin Enteric Coated 81 MG Tablet PO SCH (08:15)
[2020-02-11] MEDS: Sucralfate 1 GM TABLET PO SCH ×2 (08:15→11:43)
[2020-02-11] MEDS: Insulin LISPRO 300 UNITS/3 ML VIAL SQ SCH ×2 (08:17→11:43)
[2020-02-11 08:52] LABS: BUN/Creatinine Ratio 58 (6-26); Blood Urea Nitrogen 31 mg/dL (8-23); Calcium 8.6 mg/dL (8.6-10.3); Carbon Dioxide 30 mEq/L (23-29); Chloride 105 mEq/L (98-107); Glucose 100 mg/dL (70-105); Osmolality,Calculated 305 (280-300); Potassium 3.5 mEq/L (3.5-5.1); Sodium 144 mEq/L (136-145); eGFR For African Americans > 60 (> 60); eGFR For Non-African Americans > 60 (> 60)
[2020-02-11] MEDS ORDERED: predniSONE 20 MG TABLET PO SCH (09:00)
[2020-02-11] MEDS ORDERED: Azithromycin 250 MG TABLET PO SCH (09:00)
== END 2020-02-11 13:45 | disposition home or self-care (01) | DRG 191 ==
LOC: EMEROOARM 17:02 → 3BNU 17:02 → SUATTDRO 02-07 13:45
PROVIDERS: ADMIT Pharmacist; ATTEND Internal Medicine

== ENCOUNTER 2020-06-10 19:59 | Inpatient (IN) ==
[2020-06-10] MEDS ORDERED: Dexamethasone 4 MG/ML VIAL IVP STA (20:08)
[2020-06-10] MEDS ORDERED: Ipratropium/Albuterol Neb 3 ML IH ONE (20:08)
[2020-06-10] MEDS ORDERED: levoFLOXacin 750 MG/150 ML 750 MG/150 ML BAG IVPB ONE (20:12)
[2020-06-10 21:05] LABS: Basophils # 0.1 K/mcL (0.0-0.2); Basophils % 0.6 %; Eosinophils # 0.5 K/mcL (0.0-0.6); Eosinophils % 6.5 %; Hematocrit 41.7 % (35.3-44.9); Hemoglobin 12.4 g/dL (11.5-15.4); Immature Granulocytes % 0.3 % (0-4); Lymphocytes # 1.5 K/mcL (0.6-4.6); Lymphocytes % 19.2 %; Mean Corpuscular HGB Conc 29.7 g/dL (31.6-35.5); Mean Corpuscular Hemoglobin 25.3 pg (28.0-33.3); Mean Corpuscular Volume 84.9 fL (83.0-100.0); Mean Platelet Volume 9.2 fL (9.4-12.4); Monocytes # 0.6 K/mcL (0.0-1.3); Monocytes % 8.3 %; Neutrophils # 5.1 K/mcL (1.6-8.9); Platelet Count 256 K/mcL (140-400); Red Blood Count 4.91 M/mcL (3.82-4.97); Red Cell Distribution Width 15.4 % (11.5-14.5); Segmented Neutrophils % 65.1 %; White Blood Count 7.8 K/mcL (4.3-11.1)
[2020-06-10 21:10] LABS: Alanine Aminotransferase 16 Units/L (7-52); Albumin 4.3 g/dL (3.5-5.7); Albumin/Globulin Ratio 1.6 (1.1-2.2); Alkaline Phosphatase 42 Units/L (34-104); Aspartate Amino Transferase 19 Units/L (13-39); BUN/Creatinine Ratio 26 (6-26); Bilirubin,Direct 0.1 mg/dL (0.0-0.2); Bilirubin,Indirect 0.3 mg/dL (0.0-1.0); Bilirubin,Total 0.4 mg/dL (0.3-1.0); Blood Urea Nitrogen 16 mg/dL (8-23); Calcium 9.5 mg/dL (8.6-10.3); Carbon Dioxide 29 mEq/L (23-29); Chloride 105 mEq/L (98-107); Globulin 2.7 g/dL (2.4-3.5); Glucose 122 mg/dL (70-105); Osmolality,Calculated 294 (280-300); Sodium 141 mEq/L (136-145); Troponin I < 0.03 ng/mL (< 0.04); eGFR For African Americans > 60 (> 60); eGFR For Non-African Americans > 60 (> 60)
[2020-06-10 21:41] LABS: Prothrombin Time 11.4 Seconds (9.4-12.1)
[2020-06-10 21:44] LABS: Activated Partial Thrombo Time 28.6 Seconds (26.0-36.0)
[2020-06-10 22:00] LABS: Adenovirus Not Detected (Not Detect); Bordetella Pertussis Not Detected (Not Detect); Chlamydophila pneumoniae Not Detected (Not Detect); Coronavirus 229E Not Detected (Not Detect); Coronavirus HKU1 Not Detected (Not Detect); Coronavirus NL63 Not Detected (Not Detect); Coronavirus OC43 Not Detected (Not Detect); Human Metapneumovirus Not Detected (Not Detect); Human Rhinovirus/Enterovirus Not Detected (Not Detect); Influenza A Subtype 2009 H1 Not Detected (Not Detect); Influenza B Not Detected (Not Detect); Mycoplasma pneumoniae Not Detected (Not Detect); Parainfluenza Virus 1 Not Detected (Not Detect); Parainfluenza Virus 2 Not Detected (Not Detect); Parainfluenza Virus 3 Not Detected (Not Detect); Parainfluenza Virus 4 Not Detected (Not Detect); Respiratory Syncytial Virus Not Detected (Not Detect); SARS-CoV-2 Not Detected (Not Detect)
[2020-06-10] MEDS ORDERED: Dextrose Gel 15 GM/37.5 ML TUBE PO PRN ×2 (22:45)
[2020-06-10] MEDS ORDERED: *HR* Dextrose 50 % in Water (Vial) 50 ML VIAL IVP PRN (22:45)
[2020-06-10] MEDS ORDERED: D5% in Water 1,000 ML IVC PRN (22:45)
[2020-06-10] MEDS: Ipratropium/Albuterol Neb 3 ML IH SCH (23:58)
[2020-06-11] MEDS: MethylPREDNISolone 40 MG/ML VIAL IVP SCH ×5 (00:58→18:16)
[2020-06-11 02:57] LABS: Basophils % 0.4 %; Eosinophils % 0.4 %; Hematocrit 42.7 % (35.3-44.9); Hemoglobin 12.8 g/dL (11.5-15.4); Immature Granulocytes % 0.2 % (0-4); Lymphocytes # 0.4 K/mcL (0.6-4.6); Lymphocytes % 4.6 %; Mean Corpuscular Hemoglobin 25.7 pg (28.0-33.3); Mean Corpuscular Volume 85.7 fL (83.0-100.0); Mean Platelet Volume 9.2 fL (9.4-12.4); Monocytes # 0.1 K/mcL (0.0-1.3); Monocytes % 0.7 %; Neutrophils # 7.8 K/mcL (1.6-8.9); Platelet Count 259 K/mcL (140-400); Red Blood Count 4.98 M/mcL (3.82-4.97); Red Cell Distribution Width 15.5 % (11.5-14.5); Segmented Neutrophils % 93.7 %; White Blood Count 8.3 K/mcL (4.3-11.1)
[2020-06-11 03:18] LABS: Alanine Aminotransferase 18 Units/L (7-52); Albumin 4.5 g/dL (3.5-5.7); Albumin/Globulin Ratio 1.5 (1.1-2.2); Alkaline Phosphatase 42 Units/L (34-104); Aspartate Amino Transferase 20 Units/L (13-39); BUN/Creatinine Ratio 23 (6-26); Bilirubin,Total 0.3 mg/dL (0.3-1.0); Blood Urea Nitrogen 14 mg/dL (8-23); Calcium 9.9 mg/dL (8.6-10.3); Carbon Dioxide 26 mEq/L (23-29); Chloride 105 mEq/L (98-107); Glucose 183 mg/dL (70-105); Osmolality,Calculated 295 (280-300); Potassium 4.6 mEq/L (3.5-5.1); Sodium 140 mEq/L (136-145); Total Protein 7.5 g/dL (6.4-8.9); eGFR For African Americans > 60 (> 60); eGFR For Non-African Americans > 60 (> 60)
[2020-06-11] MEDS: Ipratropium/Albuterol Neb 3 ML IH SCH ×4 (04:13→22:00)
[2020-06-11] MEDS: *HR* Heparin 5,000 UNIT/ML VIAL SQ SCH ×3 (06:28→19:57)
[2020-06-11] MEDS: Cyanocobalamin (B-12) 1,000 MCG TABLET PO SCH (09:26)
[2020-06-11] MEDS: Aspirin Enteric Coated 81 MG Tablet PO SCH (09:26)
[2020-06-11] MEDS: Loratadine 10 MG TABLET PO SCH (09:26)
[2020-06-11] MEDS: Insulin LISPRO 300 UNITS/3 ML VIAL SQ SCH ×3 (09:27→18:16)
[2020-06-11] MEDS: (Roflumilast [Daliresp] 500 MCG) PO SCH (09:42)
[2020-06-11] MEDS: (Ezetimibe [Zetia] 10 MG) PO SCH (09:42)
[2020-06-11] MEDS ORDERED: GuaiFENesin Liq 200 MG/10 ML UDC PO PRN (11:08)
[2020-06-11] MEDS: Acetaminophen 325 MG TABLET PO PRN (12:02)
[2020-06-11] MEDS: Azithromycin 500 MG in 0.9 % Sodium Chloride 250 ML IVPB SCH ×2 (12:03→14:31)
[2020-06-11] MEDS: Latanoprost 2.5 ML BOTTLE BOTH EYES SCH (20:02)
[2020-06-11] MEDS ORDERED: (Cyclosporine [Restasis] 1 DROP) OP SCH (21:00)
[2020-06-11] MEDS: Budesonide/Formoterol 80/4.5 1 PUFF INH IH SCH (22:00)
[2020-06-12] MEDS: MethylPREDNISolone 40 MG/ML VIAL IVP SCH ×4 (00:24→16:38)
[2020-06-12] MEDS: Ipratropium/Albuterol Neb 3 ML IH SCH ×4 (03:56→22:31)
[2020-06-12 04:59] LABS: Hematocrit 40.2 % (35.3-44.9); Mean Corpuscular HGB Conc 29.9 g/dL (31.6-35.5); Mean Corpuscular Hemoglobin 25.1 pg (28.0-33.3); Mean Corpuscular Volume 83.9 fL (83.0-100.0); Mean Platelet Volume 9.4 fL (9.4-12.4); Platelet Count 273 K/mcL (140-400); Red Blood Count 4.79 M/mcL (3.82-4.97); Red Cell Distribution Width 15.5 % (11.5-14.5)
[2020-06-12 05:00] LABS: White Blood Count 14.4 K/mcL (4.3-11.1)
[2020-06-12] MEDS: *HR* Heparin 5,000 UNIT/ML VIAL SQ SCH ×3 (05:24→20:39)
[2020-06-12] MEDS: Aspirin Enteric Coated 81 MG Tablet PO SCH (07:41)
[2020-06-12] MEDS: Cyanocobalamin (B-12) 1,000 MCG TABLET PO SCH (07:41)
[2020-06-12] MEDS: Loratadine 10 MG TABLET PO SCH (07:41)
[2020-06-12] MEDS: Insulin LISPRO 300 UNITS/3 ML VIAL SQ SCH ×3 (07:42→16:38)
[2020-06-12] MEDS: (Roflumilast [Daliresp] 500 MCG) PO SCH (07:52)
[2020-06-12] MEDS: (Ezetimibe [Zetia] 10 MG) PO SCH (07:52)
[2020-06-12] MEDS: Budesonide/Formoterol 80/4.5 1 PUFF INH IH SCH ×2 (08:06→22:31)
[2020-06-12] MEDS: Ipratropium/Albuterol Neb 3 ML IH PRN (08:06)
[2020-06-12] MEDS: Azithromycin 500 MG in 0.9 % Sodium Chloride 250 ML IVPB SCH (11:21)
[2020-06-12] MEDS: Latanoprost 2.5 ML BOTTLE BOTH EYES SCH (20:40)
[2020-06-13] MEDS: Ipratropium/Albuterol Neb 3 ML IH SCH ×4 (04:02→21:56)
[2020-06-13] MEDS: *HR* Heparin 5,000 UNIT/ML VIAL SQ SCH (04:26)
[2020-06-13] MEDS: MethylPREDNISolone 40 MG/ML VIAL IVP SCH ×2 (04:26→16:41)
[2020-06-13 06:33] LABS: Hematocrit 37.1 % (35.3-44.9); Hemoglobin 11.1 g/dL (11.5-15.4); Mean Corpuscular HGB Conc 29.9 g/dL (31.6-35.5); Mean Corpuscular Hemoglobin 25.6 pg (28.0-33.3); Mean Corpuscular Volume 85.7 fL (83.0-100.0); Mean Platelet Volume 9.8 fL (9.4-12.4); Platelet Count 235 K/mcL (140-400); Red Blood Count 4.33 M/mcL (3.82-4.97); Red Cell Distribution Width 15.5 % (11.5-14.5); White Blood Count 15.3 K/mcL (4.3-11.1)
[2020-06-13] MEDS: Insulin LISPRO 300 UNITS/3 ML VIAL SQ SCH ×3 (08:10→16:40)
[2020-06-13] MEDS: Aspirin Enteric Coated 81 MG Tablet PO SCH (08:11)
[2020-06-13] MEDS: Loratadine 10 MG TABLET PO SCH (08:11)
[2020-06-13] MEDS: (Roflumilast [Daliresp] 500 MCG) PO SCH (08:11)
[2020-06-13] MEDS: Cyanocobalamin (B-12) 1,000 MCG TABLET PO SCH (08:11)
[2020-06-13] MEDS: Budesonide/Formoterol 80/4.5 1 PUFF INH IH SCH ×2 (09:11→21:57)
[2020-06-13] MEDS: Azithromycin 500 MG in 0.9 % Sodium Chloride 250 ML IVPB SCH (11:48)
[2020-06-13] MEDS ORDERED: Menthol 9.1 MG LOZENGE PO PRN (13:47)
[2020-06-13] MEDS: Latanoprost 2.5 ML BOTTLE BOTH EYES SCH (22:15)
[2020-06-14] MEDS: Ipratropium/Albuterol Neb 3 ML IH SCH ×5 (04:17→23:36)
[2020-06-14] MEDS: MethylPREDNISolone 40 MG/ML VIAL IVP SCH ×2 (05:07→17:58)
[2020-06-14 05:29] LABS: Basophils % 0.1 %; Hematocrit 37.2 % (35.3-44.9); Immature Granulocytes % 0.7 % (0-4); Lymphocytes # 1.3 K/mcL (0.6-4.6); Lymphocytes % 10.8 %; Mean Corpuscular HGB Conc 29.6 g/dL (31.6-35.5); Mean Corpuscular Hemoglobin 24.8 pg (28.0-33.3); Mean Platelet Volume 9.8 fL (9.4-12.4); Monocytes # 0.6 K/mcL (0.0-1.3); Monocytes % 5.5 %; Neutrophils # 9.6 K/mcL (1.6-8.9); Platelet Count 227 K/mcL (140-400); Red Blood Count 4.43 M/mcL (3.82-4.97); Red Cell Distribution Width 15.6 % (11.5-14.5); Segmented Neutrophils % 82.9 %; White Blood Count 11.6 K/mcL (4.3-11.1)
[2020-06-14] MEDS: Insulin LISPRO 300 UNITS/3 ML VIAL SQ SCH ×3 (08:39→17:57)
[2020-06-14] MEDS: (Roflumilast [Daliresp] 500 MCG) PO SCH (08:40)
[2020-06-14] MEDS: Aspirin Enteric Coated 81 MG Tablet PO SCH (08:45)
[2020-06-14] MEDS: Loratadine 10 MG TABLET PO SCH (08:45)
[2020-06-14] MEDS: Cyanocobalamin (B-12) 1,000 MCG TABLET PO SCH (08:45)
[2020-06-14] MEDS: Ipratropium/Albuterol Neb 3 ML IH PRN (08:59)
[2020-06-14] MEDS: Budesonide/Formoterol 80/4.5 1 PUFF INH IH SCH ×2 (09:00→20:04)
[2020-06-14] MEDS: Azithromycin 500 MG in 0.9 % Sodium Chloride 250 ML IVPB SCH (11:40)
[2020-06-14] MEDS ORDERED: Ipratropium/Albuterol Neb 3 ML IH PRN (15:03)
[2020-06-14] MEDS: Acetaminophen 325 MG TABLET PO PRN (23:16)
[2020-06-14] MEDS: Latanoprost 2.5 ML BOTTLE BOTH EYES SCH (23:16)
[2020-06-15] MEDS: Ipratropium/Albuterol Neb 3 ML IH SCH ×3 (04:25→11:12)
[2020-06-15] MEDS: MethylPREDNISolone 40 MG/ML VIAL IVP SCH (04:56)
[2020-06-15] MEDS: Budesonide/Formoterol 80/4.5 1 PUFF INH IH SCH (07:20)
[2020-06-15] MEDS: Loratadine 10 MG TABLET PO SCH (08:16)
[2020-06-15] MEDS: (Roflumilast [Daliresp] 500 MCG) PO SCH (08:16)
[2020-06-15] MEDS: Cyanocobalamin (B-12) 1,000 MCG TABLET PO SCH (08:16)
[2020-06-15] MEDS: Aspirin Enteric Coated 81 MG Tablet PO SCH (08:16)
[2020-06-15] MEDS: Insulin LISPRO 300 UNITS/3 ML VIAL SQ SCH ×3 (08:18→17:20)
[2020-06-15] MEDS ORDERED: FLU Vac QV 20-21 (6Month+)/PF 0.5 ML SYRINGE IM ONE (10:23)
[2020-06-15] MEDS: Azithromycin 500 MG in 0.9 % Sodium Chloride 250 ML IVPB SCH (11:06)
[2020-06-15] MEDS ORDERED: Ipratropium Neb 0.5 MG NEBULIZER IH PRN (13:32)
[2020-06-15 15:48] VITALS: BP 139/77
[2020-06-15] MEDS ORDERED: Ipratropium Neb 0.5 MG NEBULIZER IH SCH (16:00)
== END 2020-06-15 18:40 | disposition home or self-care (01) | DRG 191 ==
LOC: 3BNU 19:59 → EMEROOARM 19:59 → 3BNU 06-11 00:27
PROVIDERS: ADMIT Internal Medicine; ATTEND Internal Medicine

== ENCOUNTER 2021-01-03 09:08 | Observation (INO) ==
[2021-01-03 10:28] LABS: Basophils # 0.1 K/mcL (0.0-0.2); Basophils % 0.5 %; Eosinophils # 0.1 K/mcL (0.0-0.6); Eosinophils % 1.1 %; Hematocrit 39.6 % (35.3-44.9); Hemoglobin 12.1 g/dL (11.5-15.4); Immature Granulocytes % 0.7 % (0-4); Lymphocytes # 1.3 K/mcL (0.6-4.6); Lymphocytes % 12.1 %; Mean Corpuscular HGB Conc 30.6 g/dL (31.6-35.5); Mean Corpuscular Hemoglobin 25.9 pg (28.0-33.3); Mean Corpuscular Volume 84.8 fL (83.0-100.0); Mean Platelet Volume 9.5 fL (9.4-12.4); Monocytes # 0.7 K/mcL (0.0-1.3); Monocytes % 6.2 %; Neutrophils # 8.5 K/mcL (1.6-8.9); Platelet Count 229 K/mcL (140-400); Red Blood Count 4.67 M/mcL (3.82-4.97); Red Cell Distribution Width 17.6 % (11.5-14.5); Segmented Neutrophils % 79.4 %; White Blood Count 10.8 K/mcL (4.3-11.1)
[2021-01-03 10:46] LABS: BUN/Creatinine Ratio 28 (6-26); Blood Urea Nitrogen 18 mg/dL (8-23); Calcium 8.9 mg/dL (8.6-10.3); Carbon Dioxide 29 mEq/L (23-29); Chloride 100 mEq/L (98-107); Glucose 144 mg/dL (70-105); Osmolality,Calculated 292 (280-300); Potassium 3.3 mEq/L (3.5-5.1); Sodium 139 mEq/L (136-145); eGFR For African Americans > 60 (> 60); eGFR For Non-African Americans > 60 (> 60)
[2021-01-03] MEDS ORDERED: Isovue-370 500 ML BOTTLE IVP ONE (12:30)
[2021-01-03] MEDS ORDERED: Albuterol 2.5 MG/3 ML NEBULIZER IH ONE (14:23)
[2021-01-03] MEDS ORDERED: Aspirin 325 MG TABLET PO ONE (15:14)
[2021-01-03] MEDS ORDERED: Morphine Sulfate 2 MG/ML SYRINGE IVP PRN (15:14)
[2021-01-03] MEDS ORDERED: Ondansetron 4 MG/2 ML VIAL IVP PRN (15:14)
[2021-01-03] MEDS ORDERED: Nitroglycerin 0.4 MG TAB.SUBL SL PRN (15:14)
[2021-01-03] MEDS ORDERED: Ipratropium/Albuterol Neb 3 ML IH PRN (15:19)
[2021-01-03] MEDS ORDERED: *HR* Dextrose 50 % in Water (Vial) 50 ML VIAL IVP PRN (15:20)
[2021-01-03] MEDS ORDERED: Mag Hydrox/Al Hydrox/Simeth 30 ML UDC PO PRN (15:20)
[2021-01-03] MEDS ORDERED: Dextrose Gel 15 GM/37.5 ML TUBE PO PRN ×2 (15:20)
[2021-01-03] MEDS ORDERED: Acetaminophen 325 MG TABLET PO PRN (15:20)
[2021-01-03] MEDS ORDERED: Naloxone 0.4 MG/ML INJ IVP PRN (15:20)
[2021-01-03] MEDS ORDERED: Melatonin 3 MG TABLET PO PRN (15:20)
[2021-01-03] MEDS ORDERED: D5% in Water 1,000 ML IVC PRN (15:20)
[2021-01-03] MEDS: Insulin LISPRO 300 UNITS/3 ML VIAL SUBQ SCH (19:45)
[2021-01-03] MEDS ORDERED: Insulin LISPRO 300 UNITS/3 ML VIAL SUBQ SCH (21:00)
[2021-01-03] MEDS: *HR* Heparin 5,000 UNIT/ML VIAL SQ SCH (21:01)
[2021-01-03] MEDS: Pantoprazole 40 MG VIAL IVP SCH (21:01)
[2021-01-04] MEDS: *HR* Heparin 5,000 UNIT/ML VIAL SQ SCH (06:17)
[2021-01-04] MEDS ORDERED: Regadenoson 0.4 MG/5 ML SYRINGE IVP ONE (06:19)
[2021-01-04 07:28] LABS: Basophils % 0.6 %; Eosinophils # 0.1 K/mcL (0.0-0.6); Eosinophils % 1.5 %; Hematocrit 40.5 % (35.3-44.9); Hemoglobin 12.5 g/dL (11.5-15.4); Immature Granulocytes % 0.7 % (0-4); Lymphocytes # 1.2 K/mcL (0.6-4.6); Mean Corpuscular HGB Conc 30.9 g/dL (31.6-35.5); Mean Corpuscular Hemoglobin 26.3 pg (28.0-33.3); Mean Corpuscular Volume 85.3 fL (83.0-100.0); Mean Platelet Volume 9.4 fL (9.4-12.4); Monocytes # 0.5 K/mcL (0.0-1.3); Monocytes % 7.6 %; Neutrophils # 4.9 K/mcL (1.6-8.9); Platelet Count 223 K/mcL (140-400); Red Blood Count 4.75 M/mcL (3.82-4.97); Red Cell Distribution Width 17.5 % (11.5-14.5); Segmented Neutrophils % 72.6 %; White Blood Count 6.8 K/mcL (4.3-11.1)
[2021-01-04 07:39] LABS: Prothrombin Time 11.3 Seconds (9.4-12.1)
[2021-01-04 08:12] LABS: Alanine Aminotransferase 23 Units/L (7-52); Albumin/Globulin Ratio 1.7 (1.1-2.2); Alkaline Phosphatase 29 Units/L (34-104); Aspartate Amino Transferase 19 Units/L (13-39); BUN/Creatinine Ratio 30 (6-26); Bilirubin,Total 0.6 mg/dL (0.3-1.0); Blood Urea Nitrogen 21 mg/dL (8-23); Carbon Dioxide 29 mEq/L (23-29); Chloride 103 mEq/L (98-107); Globulin 2.3 g/dL (2.4-3.5); Glucose 150 mg/dL (70-105); Magnesium 2.1 mg/dL (1.6-2.6); Osmolality,Calculated 296 (280-300); Potassium 3.9 mEq/L (3.5-5.1); Sodium 140 mEq/L (136-145); Total Protein 6.3 g/dL (6.4-8.9); eGFR For African Americans > 60 (> 60); eGFR For Non-African Americans > 60 (> 60)
[2021-01-04] MEDS ORDERED: (Roflumilast [Daliresp] 500 MCG Tablet) PO SCH (09:00)
[2021-01-04] MEDS ORDERED: Furosemide 20 MG TABLET PO SCH (09:00)
[2021-01-04] MEDS ORDERED: Cholecalciferol (D-3) 1,000 UNIT (25MCG) TABLET PO SCH (09:00)
[2021-01-04] MEDS ORDERED: Cyanocobalamin (B-12) 1,000 MCG TABLET PO SCH (09:00)
[2021-01-04] MEDS ORDERED: Aspirin Enteric Coated 81 MG Tablet PO SCH (09:00)
[2021-01-04] MEDS: Pantoprazole 40 MG VIAL IVP SCH (09:19)
[2021-01-04] MEDS: Insulin LISPRO 300 UNITS/3 ML VIAL SUBQ SCH ×2 (09:21→12:33)
[2021-01-04 11:17] VITALS: BP 128/62
== END 2021-01-04 15:05 | disposition home or self-care (01) ==
LOC: EMEROOARM 09:08 → CDU 09:08 → SUATTDRO 19:43 → CDU 20:18
PROVIDERS: ADMIT Family Medicine; ATTEND Family Medicine

== ENCOUNTER 2021-02-21 07:08 | Inpatient (IN) ==
[2021-02-21] MEDS ORDERED: methylPREDNISolone 125 MG/2 ML VIAL IVP ONE (07:53)
[2021-02-21] MEDS ORDERED: Ipratropium/Albuterol Neb 3 ML IH ONE (07:53)
[2021-02-21] MEDS ORDERED: Azithromycin 250 MG TABLET PO ONE (07:53)
[2021-02-21 08:05] LABS: Basophils # 0.1 K/mcL (0.0-0.2); Basophils % 0.7 %; Eosinophils # 0.2 K/mcL (0.0-0.6); Eosinophils % 3.2 %; Hematocrit 39.8 % (35.3-44.9); Hemoglobin 12.1 g/dL (11.5-15.4); Immature Granulocytes % 0.4 % (0-4); Lymphocytes # 1.5 K/mcL (0.6-4.6); Lymphocytes % 20.5 %; Mean Corpuscular HGB Conc 30.4 g/dL (31.6-35.5); Mean Corpuscular Hemoglobin 26.3 pg (28.0-33.3); Mean Corpuscular Volume 86.5 fL (83.0-100.0); Mean Platelet Volume 9.6 fL (9.4-12.4); Monocytes # 0.5 K/mcL (0.0-1.3); Monocytes % 7.1 %; Neutrophils # 5.1 K/mcL (1.6-8.9); Platelet Count 238 K/mcL (140-400); Red Cell Distribution Width 15.2 % (11.5-14.5); Segmented Neutrophils % 68.1 %; White Blood Count 7.4 K/mcL (4.3-11.1)
[2021-02-21 08:24] LABS: BUN/Creatinine Ratio 20 (6-26); Blood Urea Nitrogen 13 mg/dL (8-23); Calcium 9.1 mg/dL (8.6-10.3); Carbon Dioxide 27 mEq/L (23-29); Chloride 103 mEq/L (98-107); Glucose 175 mg/dL (70-105); Osmolality,Calculated 296 (280-300); Sodium 141 mEq/L (136-145); eGFR For African Americans > 60 (> 60); eGFR For Non-African Americans > 60 (> 60)
[2021-02-21 08:54] LABS: Troponin I < 0.03 ng/mL (< 0.04)
[2021-02-21] MEDS ORDERED: Acetaminophen 325 MG TABLET PO PRN (09:45)
[2021-02-21] MEDS ORDERED: Melatonin 3 MG TABLET PO PRN (09:45)
[2021-02-21] MEDS ORDERED: Ondansetron 4 MG/2 ML VIAL IVP PRN (09:45)
[2021-02-21] MEDS ORDERED: Naloxone 0.4 MG/ML INJ IVP PRN (09:45)
[2021-02-21] MEDS ORDERED: Dextrose Gel 15 GM/37.5 ML TUBE PO PRN ×2 (10:38)
[2021-02-21] MEDS ORDERED: *HR* Dextrose 50 % in Water (Vial) 50 ML VIAL IVP PRN (10:38)
[2021-02-21] MEDS ORDERED: D5% in Water 1,000 ML IVC PRN (10:38)
[2021-02-21 11:12] LABS: Adenovirus Not Detected (Not Detect)
[2021-02-21 11:13] LABS: Bordetella Pertussis Not Detected (Not Detect); Chlamydophila pneumoniae Not Detected (Not Detect); Coronavirus 229E Not Detected (Not Detect); Coronavirus HKU1 Not Detected (Not Detect); Coronavirus NL63 Not Detected (Not Detect); Coronavirus OC43 Not Detected (Not Detect); Human Metapneumovirus Not Detected (Not Detect); Human Rhinovirus/Enterovirus Not Detected (Not Detect); Influenza A Subtype 2009 H1 Not Detected (Not Detect); Influenza B Not Detected (Not Detect); Mycoplasma pneumoniae Not Detected (Not Detect); Parainfluenza Virus 1 Not Detected (Not Detect); Parainfluenza Virus 2 Not Detected (Not Detect); Parainfluenza Virus 3 Not Detected (Not Detect); Parainfluenza Virus 4 Not Detected (Not Detect); Respiratory Syncytial Virus Not Detected (Not Detect); SARS-CoV-2 Not Detected (Not Detect)
[2021-02-21] MEDS: Tiotropium 10 INH DOSE IH SCH (11:37)
[2021-02-21] MEDS: Levalbuterol Neb 1.25 MG/3 ML IH SCH ×3 (11:37→22:24)
[2021-02-21] MEDS: Insulin LISPRO 300 UNITS/3 ML VIAL SUBQ SCH ×2 (11:48→16:25)
[2021-02-21] MEDS: Latanoprost 2.5 ML BOTTLE BOTH EYES SCH (22:00)
[2021-02-22] MEDS: Levalbuterol Neb 1.25 MG/3 ML IH SCH ×4 (03:44→22:19)
[2021-02-22 04:29] LABS: Thyroid Stimulating Hormone 0.185 mcIU/mL (0.340-5.600)
[2021-02-22] MEDS: *HR* Enoxaparin 40 MG/0.4 ML SYRINGE SQ SCH (05:26)
[2021-02-22] MEDS ORDERED: Dextromethorphan Polistrx(12h) 30 MG/5 ML UDC PO ONE (05:36)
[2021-02-22] MEDS: methylPREDNISolone 4 MG TABLET PO SCH (09:48)
[2021-02-22] MEDS: Aspirin Enteric Coated 81 MG Tablet PO SCH (09:48)
[2021-02-22] MEDS: Azithromycin 250 MG TABLET PO SCH (09:48)
[2021-02-22] MEDS: Furosemide 20 MG TABLET PO SCH (09:48)
[2021-02-22] MEDS: Insulin LISPRO 300 UNITS/3 ML VIAL SUBQ SCH ×3 (09:49→17:23)
[2021-02-22] MEDS: Latanoprost 2.5 ML BOTTLE BOTH EYES SCH (09:50)
[2021-02-22] MEDS: Tiotropium 10 INH DOSE IH SCH (10:45)
[2021-02-22] MEDS: carvediloL 6.25 MG TABLET PO SCH (17:23)
[2021-02-22] MEDS: Ipratropium/Albuterol Neb 3 ML IH PRN (18:54)
[2021-02-22] MEDS: Insulin DETEMIR 100 UNIT/ML X5UNITS SUBQ SCH (21:36)
[2021-02-23] MEDS: Latanoprost 2.5 ML BOTTLE BOTH EYES SCH ×3 (02:48→20:36)
[2021-02-23] MEDS: Levalbuterol Neb 1.25 MG/3 ML IH SCH ×4 (03:35→21:09)
[2021-02-23] MEDS: *HR* Enoxaparin 40 MG/0.4 ML SYRINGE SQ SCH (06:02)
[2021-02-23] MEDS: Insulin LISPRO 300 UNITS/3 ML VIAL SUBQ SCH ×3 (08:26→17:10)
[2021-02-23] MEDS: Azithromycin 250 MG TABLET PO SCH (08:45)
[2021-02-23] MEDS: Furosemide 20 MG TABLET PO SCH (08:46)
[2021-02-23] MEDS: carvediloL 6.25 MG TABLET PO SCH ×2 (08:46→17:10)
[2021-02-23] MEDS: Aspirin Enteric Coated 81 MG Tablet PO SCH (08:49)
[2021-02-23] MEDS: Insulin DETEMIR 100 UNIT/ML X5UNITS SUBQ SCH ×2 (08:49→20:44)
[2021-02-23] MEDS: Tiotropium 10 INH DOSE IH SCH (08:52)
[2021-02-23] MEDS: methylPREDNISolone 4 MG TABLET PO SCH (09:52)
[2021-02-23] MEDS: MethylPREDNISolone 40 MG/ML VIAL IVP SCH ×2 (14:12→20:35)
[2021-02-23] MEDS: Doxycycline 100 MG in 0.9 % Sodium Chloride Mini Bag 100 ML IVPB SCH (17:11)
[2021-02-24] MEDS: Ipratropium/Albuterol Neb 3 ML IH PRN ×2 (01:40→14:23)
[2021-02-24 02:39] LABS: BUN/Creatinine Ratio 45 (6-26); Blood Urea Nitrogen 31 mg/dL (8-23); Calcium 9.1 mg/dL (8.6-10.3); Carbon Dioxide 29 mEq/L (23-29); Chloride 102 mEq/L (98-107); Glucose 322 mg/dL (70-105); Magnesium 2.1 mg/dL (1.6-2.6); Osmolality,Calculated 307 (280-300); Phosphorous 3.2 mg/dL (2.7-4.5); Potassium 4.1 mEq/L (3.5-5.1); Sodium 139 mEq/L (136-145); eGFR For African Americans > 60 (> 60); eGFR For Non-African Americans > 60 (> 60)
[2021-02-24] MEDS: Levalbuterol Neb 1.25 MG/3 ML IH SCH ×4 (03:35→21:55)
[2021-02-24] MEDS: MethylPREDNISolone 40 MG/ML VIAL IVP SCH ×3 (06:17→20:54)
[2021-02-24] MEDS: Doxycycline 100 MG in 0.9 % Sodium Chloride Mini Bag 100 ML IVPB SCH (06:27)
[2021-02-24] MEDS: *HR* Enoxaparin 40 MG/0.4 ML SYRINGE SQ SCH (06:29)
[2021-02-24] MEDS: Furosemide 20 MG TABLET PO SCH (07:49)
[2021-02-24] MEDS: Insulin DETEMIR 100 UNIT/ML X5UNITS SUBQ SCH ×2 (07:49→20:55)
[2021-02-24] MEDS: Aspirin Enteric Coated 81 MG Tablet PO SCH (07:49)
[2021-02-24] MEDS: carvediloL 6.25 MG TABLET PO SCH ×2 (07:49→17:40)
[2021-02-24] MEDS: Insulin LISPRO 300 UNITS/3 ML VIAL SUBQ SCH ×6 (07:50→17:41)
[2021-02-24] MEDS: Latanoprost 2.5 ML BOTTLE BOTH EYES SCH ×2 (07:50→20:55)
[2021-02-24] MEDS: Tiotropium 10 INH DOSE IH SCH (10:10)
[2021-02-24] MEDS: Doxycycline 100 MG CAPSULE PO SCH (20:55)
[2021-02-25] MEDS: Levalbuterol Neb 1.25 MG/3 ML IH SCH ×5 (03:30→22:00)
[2021-02-25] MEDS: MethylPREDNISolone 40 MG/ML VIAL IVP SCH ×3 (06:00→20:12)
[2021-02-25] MEDS: *HR* Enoxaparin 40 MG/0.4 ML SYRINGE SQ SCH (06:00)
[2021-02-25] MEDS: Insulin DETEMIR 100 UNIT/ML X5UNITS SUBQ SCH ×2 (08:11→20:12)
[2021-02-25] MEDS: Insulin LISPRO 300 UNITS/3 ML VIAL SUBQ SCH ×6 (08:12→16:42)
[2021-02-25] MEDS: Furosemide 20 MG TABLET PO SCH (08:12)
[2021-02-25] MEDS: Latanoprost 2.5 ML BOTTLE BOTH EYES SCH (08:12)
[2021-02-25] MEDS: Doxycycline 100 MG CAPSULE PO SCH ×2 (08:12→20:12)
[2021-02-25] MEDS: Aspirin Enteric Coated 81 MG Tablet PO SCH (08:12)
[2021-02-25] MEDS: carvediloL 6.25 MG TABLET PO SCH ×2 (08:13→16:42)
[2021-02-25] MEDS: Tiotropium 10 INH DOSE IH SCH (09:49)
[2021-02-25] MEDS: Ipratropium/Albuterol Neb 3 ML IH PRN (19:25)
[2021-02-26] MEDS: Latanoprost 2.5 ML BOTTLE BOTH EYES SCH ×3 (01:19→22:14)
[2021-02-26] MEDS: Levalbuterol Neb 1.25 MG/3 ML IH SCH ×4 (03:13→20:58)
[2021-02-26] MEDS: *HR* Enoxaparin 40 MG/0.4 ML SYRINGE SQ SCH (05:20)
[2021-02-26] MEDS: MethylPREDNISolone 40 MG/ML VIAL IVP SCH ×3 (05:20→17:14)
[2021-02-26] MEDS: Aspirin Enteric Coated 81 MG Tablet PO SCH (08:34)
[2021-02-26] MEDS: Doxycycline 100 MG CAPSULE PO SCH ×2 (08:34→22:13)
[2021-02-26] MEDS: Furosemide 20 MG TABLET PO SCH (08:36)
[2021-02-26] MEDS: carvediloL 6.25 MG TABLET PO SCH ×2 (08:36→17:14)
[2021-02-26] MEDS: Insulin LISPRO 300 UNITS/3 ML VIAL SUBQ SCH ×6 (08:37→17:12)
[2021-02-26] MEDS: Insulin DETEMIR 100 UNIT/ML X5UNITS SUBQ SCH ×2 (08:51→22:13)
[2021-02-26] MEDS: Tiotropium 10 INH DOSE IH SCH (09:38)
[2021-02-26] MEDS: Azithromycin 250 MG TABLET PO SCH (17:14)
[2021-02-27] MEDS: MethylPREDNISolone 40 MG/ML VIAL IVP SCH ×2 (00:35→13:07)
[2021-02-27] MEDS: Levalbuterol Neb 1.25 MG/3 ML IH SCH ×4 (03:49→21:32)
[2021-02-27] MEDS: *HR* Enoxaparin 40 MG/0.4 ML SYRINGE SQ SCH (05:21)
[2021-02-27] MEDS: Doxycycline 100 MG CAPSULE PO SCH (09:15)
[2021-02-27] MEDS: carvediloL 6.25 MG TABLET PO SCH ×2 (09:15→17:43)
[2021-02-27] MEDS: Insulin LISPRO 300 UNITS/3 ML VIAL SUBQ SCH ×6 (09:15→17:42)
[2021-02-27] MEDS: Aspirin Enteric Coated 81 MG Tablet PO SCH (09:15)
[2021-02-27] MEDS: Furosemide 20 MG TABLET PO SCH (09:15)
[2021-02-27] MEDS: Azithromycin 250 MG TABLET PO SCH (09:16)
[2021-02-27] MEDS: Latanoprost 2.5 ML BOTTLE BOTH EYES SCH ×2 (09:41→20:56)
[2021-02-27] MEDS: Tiotropium 10 INH DOSE IH SCH (09:48)
[2021-02-27] MEDS: Insulin DETEMIR 100 UNIT/ML X5UNITS SUBQ SCH ×2 (13:04→20:59)
[2021-02-27] MEDS: Furosemide 20 MG/2 ML VIAL IVP SCH (20:56)
[2021-02-28] MEDS: MethylPREDNISolone 40 MG/ML VIAL IVP SCH ×2 (00:54→11:53)
[2021-02-28] MEDS: Levalbuterol Neb 1.25 MG/3 ML IH SCH ×3 (03:34→16:08)
[2021-02-28 03:49] LABS: Basophils % 0.1 %; Hematocrit 44.6 % (35.3-44.9); Hemoglobin 13.5 g/dL (11.5-15.4); Immature Granulocytes % 0.8 % (0-4); Lymphocytes # 0.8 K/mcL (0.6-4.6); Lymphocytes % 6.8 %; Mean Corpuscular HGB Conc 30.3 g/dL (31.6-35.5); Mean Corpuscular Hemoglobin 25.9 pg (28.0-33.3); Mean Corpuscular Volume 85.4 fL (83.0-100.0); Mean Platelet Volume 9.6 fL (9.4-12.4); Monocytes # 0.2 K/mcL (0.0-1.3); Monocytes % 1.9 %; Neutrophils # 11.2 K/mcL (1.6-8.9); Platelet Count 283 K/mcL (140-400); Red Blood Count 5.22 M/mcL (3.82-4.97); Segmented Neutrophils % 90.4 %
[2021-02-28 03:58] LABS: White Blood Count 12.4 K/mcL (4.3-11.1)
[2021-02-28 03:59] LABS: BUN/Creatinine Ratio 55 (6-26); Blood Urea Nitrogen 36 mg/dL (8-23); Calcium 9.2 mg/dL (8.6-10.3); Carbon Dioxide 29 mEq/L (23-29); Chloride 97 mEq/L (98-107); Glucose 271 mg/dL (70-105); Magnesium 2.3 mg/dL (1.6-2.6); Osmolality,Calculated 304 (280-300); Phosphorous 4.3 mg/dL (2.7-4.5); Potassium 4.3 mEq/L (3.5-5.1); Sodium 138 mEq/L (136-145); eGFR For African Americans > 60 (> 60); eGFR For Non-African Americans > 60 (> 60)
[2021-02-28] MEDS: *HR* Enoxaparin 40 MG/0.4 ML SYRINGE SQ SCH (05:36)
[2021-02-28] MEDS: carvediloL 6.25 MG TABLET PO SCH (08:49)
[2021-02-28] MEDS: Aspirin Enteric Coated 81 MG Tablet PO SCH (08:49)
[2021-02-28] MEDS: Azithromycin 250 MG TABLET PO SCH (08:49)
[2021-02-28] MEDS: Insulin DETEMIR 100 UNIT/ML X5UNITS SUBQ SCH (08:50)
[2021-02-28] MEDS: Insulin LISPRO 300 UNITS/3 ML VIAL SUBQ SCH ×4 (08:50→11:53)
[2021-02-28] MEDS: Furosemide 20 MG/2 ML VIAL IVP SCH (08:50)
[2021-02-28] MEDS: Latanoprost 2.5 ML BOTTLE BOTH EYES SCH (08:58)
[2021-02-28] MEDS: Tiotropium 10 INH DOSE IH SCH (10:32)
[2021-02-28 11:44] VITALS: BP 141/81; PULSE 98; TEMP 98.3
[2021-02-28 16:10] VITALS: O2SAT 96
== END 2021-02-28 16:30 | disposition home or self-care (01) | DRG 190 ==
LOC: 2ANU 07:08 → EMEROOARM 07:08 → 2ANU 11:43 → SUATTDRO 02-22 12:15
PROVIDERS: ADMIT Internal Medicine; ATTEND Internal Medicine

== ENCOUNTER 2021-06-27 02:04 | Inpatient (IN) ==
[2021-06-27] MEDS ORDERED: cefTRIAXone 1,000 MG in Water for inj. (sterile) 10 ML IVP ONE (02:30)
[2021-06-27] MEDS ORDERED: methylPREDNISolone 125 MG/2 ML VIAL IVP ONE (02:30)
[2021-06-27] MEDS ORDERED: Azithromycin 500 MG in 0.9 % Sodium Chloride 250 ML IVPB ONE (02:30)
[2021-06-27] MEDS ORDERED: Ipratropium/Albuterol Neb 3 ML IH ONE (02:30)
[2021-06-27] MEDS ORDERED: Ipratropium/Albuterol Neb 3 ML ONE (02:31)
[2021-06-27 04:09] LABS: BUN/Creatinine Ratio 28 (6-26); Blood Urea Nitrogen 23 mg/dL (8-23); Calcium 9.5 mg/dL (8.6-10.3); Carbon Dioxide 28 mEq/L (23-29); Chloride 101 mEq/L (98-107); Glucose 249 mg/dL (70-105); Osmolality,Calculated 296 (280-300); Potassium 3.7 mEq/L (3.5-5.1); Sodium 137 mEq/L (136-145); Troponin I < 0.03 ng/mL (< 0.04); eGFR For African Americans > 60 (> 60); eGFR For Non-African Americans > 60 (> 60)
[2021-06-27 04:13] LABS: Basophils % 0.6 %; Eosinophils # 0.2 K/mcL (0.0-0.6); Eosinophils % 2.8 %; Hematocrit 42.8 % (35.3-44.9); Hemoglobin 12.9 g/dL (11.5-15.4); Immature Granulocytes % 0.4 % (0-4); Lymphocytes # 1.9 K/mcL (0.6-4.6); Lymphocytes % 28.3 %; Mean Corpuscular HGB Conc 30.1 g/dL (31.6-35.5); Mean Corpuscular Volume 86.1 fL (83.0-100.0); Mean Platelet Volume 10.5 fL (9.4-12.4); Monocytes # 0.7 K/mcL (0.0-1.3); Monocytes % 10.5 %; Neutrophils # 3.9 K/mcL (1.6-8.9); Platelet Count 215 K/mcL (140-400); Red Blood Count 4.97 M/mcL (3.82-4.97); Red Cell Distribution Width 14.9 % (11.5-14.5); Segmented Neutrophils % 57.4 %; White Blood Count 6.8 K/mcL (4.3-11.1)
[2021-06-27] MEDS ORDERED: Albuterol 2.5 MG/3 ML NEBULIZER IH ONE (04:34)
[2021-06-27 04:39] LABS: Bilirubin,Urine Negative (Negative); Blood,Urine Trace (Negative); Clarity,Urine Clear (Clear); Color,Urine Light-Yellow (Yellow); Glucose,Urine (UA) >=1000 mg/dL (Normal); Ketones,Urine Trace mg/dL (Negative); Leukocyte Esterase,Urine Trace (Negative); Mucus,Urine Few per lpf (None-Few); Nitrite,Urine Negative (Negative); PH,Urine 5.5 pH Units (5.0-8.0); Protein,Urine Trace mg/dL (Neg-Trace); RBC,Urine 0-3 per hpf (0-3); Specific Gravity,Urine > 1.030 (1.010-1.025); Squamous Epithelial Cell,Urine Few per hpf (None-Few); Urobilinogen,Urine Normal (Normal)
[2021-06-27 07:31] LABS: Adenovirus Not Detected (Not Detect); Bordetella Pertussis Not Detected (Not Detect); Chlamydophila pneumoniae Not Detected (Not Detect); Coronavirus 229E Not Detected (Not Detect); Coronavirus HKU1 Not Detected (Not Detect); Coronavirus NL63 Not Detected (Not Detect); Coronavirus OC43 Not Detected (Not Detect); Human Metapneumovirus Not Detected (Not Detect); Human Rhinovirus/Enterovirus Not Detected (Not Detect); Influenza A Subtype 2009 H1 Not Detected (Not Detect); Influenza B Not Detected (Not Detect); Mycoplasma pneumoniae Not Detected (Not Detect); Parainfluenza Virus 1 Not Detected (Not Detect); Parainfluenza Virus 2 Not Detected (Not Detect); Parainfluenza Virus 3 Not Detected (Not Detect); Parainfluenza Virus 4 Not Detected (Not Detect); Respiratory Syncytial Virus Not Detected (Not Detect); SARS-CoV-2 Not Detected (Not Detect)
[2021-06-27] MEDS ORDERED: Dextrose Gel 15 GM/37.5 ML TUBE PO PRN ×2 (08:27)
[2021-06-27] MEDS ORDERED: D5% in Water 1,000 ML IVC PRN (08:27)
[2021-06-27] MEDS ORDERED: *HR* Dextrose 50 % in Water (Syg) 50 ML SYRINGE IVP PRN (08:27)
[2021-06-27] MEDS ORDERED: Isovue-370 500 ML BOTTLE IVP ONE (08:32)
[2021-06-27] MEDS: Ipratropium/Albuterol Neb 3 ML IH SCH ×3 (11:19→23:41)
[2021-06-27] MEDS: Budesonide/Formoterol 160/4.5 1 PUFF INH IH SCH ×2 (11:19→23:41)
[2021-06-27] MEDS: Aspirin Enteric Coated 81 MG Tablet PO SCH (11:41)
[2021-06-27] MEDS: Latanoprost 2.5 ML BOTTLE BOTH EYES SCH ×2 (11:43→20:51)
[2021-06-27] MEDS: Roflumilast [Daliresp] 500 MCG Tablet PO SCH (11:43)
[2021-06-27] MEDS: Cyanocobalamin (B-12) 1,000 MCG TABLET PO SCH (11:44)
[2021-06-27] MEDS: Insulin LISPRO 300 UNITS/3 ML VIAL SUBQ SCH ×3 (11:49→20:54)
[2021-06-27] MEDS: MethylPREDNISolone 40 MG/ML VIAL IVP SCH ×2 (14:52→23:43)
[2021-06-28] MEDS: Ipratropium/Albuterol Neb 3 ML IH SCH ×5 (04:24→23:21)
[2021-06-28] MEDS ORDERED: Ipratropium/Albuterol Neb 3 ML IH ONE (06:55)
[2021-06-28] MEDS: Budesonide/Formoterol 160/4.5 1 PUFF INH IH SCH ×2 (07:23→19:41)
[2021-06-28] MEDS: Aspirin Enteric Coated 81 MG Tablet PO SCH (10:02)
[2021-06-28] MEDS: Cyanocobalamin (B-12) 1,000 MCG TABLET PO SCH (10:02)
[2021-06-28] MEDS: MethylPREDNISolone 40 MG/ML VIAL IVP SCH ×2 (10:03→17:15)
[2021-06-28] MEDS: Insulin LISPRO 300 UNITS/3 ML VIAL SUBQ SCH ×4 (10:04→20:44)
[2021-06-28] MEDS: Roflumilast [Daliresp] 500 MCG Tablet PO SCH (12:36)
[2021-06-28] MEDS: Latanoprost 2.5 ML BOTTLE BOTH EYES SCH (12:37)
[2021-06-28] MEDS: Azithromycin 250 MG TABLET PO SCH (17:15)
[2021-06-28] MEDS: Insulin DETEMIR 100 UNIT/ML X5UNITS SUBQ SCH (20:44)
[2021-06-29] MEDS: Latanoprost 2.5 ML BOTTLE BOTH EYES SCH ×3 (00:28→21:00)
[2021-06-29] MEDS: MethylPREDNISolone 40 MG/ML VIAL IVP SCH ×2 (00:36→09:04)
[2021-06-29] MEDS: Ipratropium/Albuterol Neb 3 ML IH SCH ×5 (03:48→20:04)
[2021-06-29 05:01] LABS: Hematocrit 39.2 % (35.3-44.9); Hemoglobin 11.6 g/dL (11.5-15.4); Mean Corpuscular HGB Conc 29.6 g/dL (31.6-35.5); Mean Corpuscular Hemoglobin 26.1 pg (28.0-33.3); Mean Corpuscular Volume 88.1 fL (83.0-100.0); Mean Platelet Volume 10.2 fL (9.4-12.4); Platelet Count 212 K/mcL (140-400); Red Blood Count 4.45 M/mcL (3.82-4.97); White Blood Count 15.2 K/mcL (4.3-11.1)
[2021-06-29 05:20] LABS: BUN/Creatinine Ratio 42 (6-26); Blood Urea Nitrogen 25 mg/dL (8-23); Calcium 9.5 mg/dL (8.6-10.3); Carbon Dioxide 27 mEq/L (23-29); Chloride 102 mEq/L (98-107); Glucose 338 mg/dL (70-105); Osmolality,Calculated 304 (280-300); Phosphorous 3.8 mg/dL (2.7-4.5); Potassium 4.2 mEq/L (3.5-5.1); Sodium 138 mEq/L (136-145); eGFR For African Americans > 60 (> 60); eGFR For Non-African Americans > 60 (> 60)
[2021-06-29] MEDS: *HR* Enoxaparin 40 MG/0.4 ML SYRINGE SQ SCH (06:27)
[2021-06-29] MEDS: Budesonide/Formoterol 160/4.5 1 PUFF INH IH SCH ×2 (08:36→20:04)
[2021-06-29] MEDS: Aspirin Enteric Coated 81 MG Tablet PO SCH (09:07)
[2021-06-29] MEDS: Azithromycin 250 MG TABLET PO SCH (09:07)
[2021-06-29] MEDS: Cyanocobalamin (B-12) 1,000 MCG TABLET PO SCH (09:07)
[2021-06-29] MEDS: Insulin LISPRO 300 UNITS/3 ML VIAL SUBQ SCH ×4 (09:14→20:59)
[2021-06-29] MEDS: Roflumilast [Daliresp] 500 MCG Tablet PO SCH (12:19)
[2021-06-29] MEDS: Insulin DETEMIR 100 UNIT/ML X5UNITS SUBQ SCH (20:58)
[2021-06-30] MEDS: Ipratropium/Albuterol Neb 3 ML IH SCH ×7 (00:14→23:33)
[2021-06-30] MEDS: *HR* Enoxaparin 40 MG/0.4 ML SYRINGE SQ SCH (05:13)
[2021-06-30] MEDS: Budesonide/Formoterol 160/4.5 1 PUFF INH IH SCH ×2 (07:43→23:35)
[2021-06-30] MEDS: Insulin LISPRO 300 UNITS/3 ML VIAL SUBQ SCH ×4 (08:04→19:57)
[2021-06-30] MEDS: Aspirin Enteric Coated 81 MG Tablet PO SCH (08:08)
[2021-06-30] MEDS: Cyanocobalamin (B-12) 1,000 MCG TABLET PO SCH (08:09)
[2021-06-30] MEDS: predniSONE 20 MG TABLET PO SCH (08:10)
[2021-06-30] MEDS: Azithromycin 250 MG TABLET PO SCH (08:10)
[2021-06-30] MEDS: Roflumilast [Daliresp] 500 MCG Tablet PO SCH (08:12)
[2021-06-30] MEDS: Latanoprost 2.5 ML BOTTLE BOTH EYES SCH ×2 (08:12→19:56)
[2021-06-30] MEDS: Insulin DETEMIR 100 UNIT/ML X5UNITS SUBQ SCH (19:56)
[2021-07-01] MEDS: Ipratropium/Albuterol Neb 3 ML IH SCH ×2 (03:52→08:08)
[2021-07-01 04:51] LABS: Hematocrit 37.9 % (35.3-44.9); Hemoglobin 11.6 g/dL (11.5-15.4); Mean Corpuscular HGB Conc 30.6 g/dL (31.6-35.5); Mean Corpuscular Volume 84.8 fL (83.0-100.0); Mean Platelet Volume 9.8 fL (9.4-12.4); Platelet Count 199 K/mcL (140-400); Red Blood Count 4.47 M/mcL (3.82-4.97); Red Cell Distribution Width 14.9 % (11.5-14.5); White Blood Count 9.5 K/mcL (4.3-11.1)
[2021-07-01 05:10] LABS: BUN/Creatinine Ratio 46 (6-26); Blood Urea Nitrogen 26 mg/dL (8-23); Carbon Dioxide 31 mEq/L (23-29); Chloride 101 mEq/L (98-107); Glucose 177 mg/dL (70-105); Magnesium 1.8 mg/dL (1.6-2.6); Osmolality,Calculated 297 (280-300); Potassium 3.7 mEq/L (3.5-5.1); Sodium 139 mEq/L (136-145); eGFR For African Americans > 60 (> 60); eGFR For Non-African Americans > 60 (> 60)
[2021-07-01] MEDS: *HR* Enoxaparin 40 MG/0.4 ML SYRINGE SQ SCH (05:13)
[2021-07-01 05:17] VITALS: BP 120/61; PULSE 92; TEMP 98.4
[2021-07-01] MEDS: Budesonide/Formoterol 160/4.5 1 PUFF INH IH SCH (08:09)
[2021-07-01 08:12] VITALS: O2SAT 94
[2021-07-01] MEDS: Cyanocobalamin (B-12) 1,000 MCG TABLET PO SCH (08:19)
[2021-07-01] MEDS: Aspirin Enteric Coated 81 MG Tablet PO SCH (08:19)
[2021-07-01] MEDS: Azithromycin 250 MG TABLET PO SCH (08:20)
[2021-07-01] MEDS: predniSONE 20 MG TABLET PO SCH (08:20)
[2021-07-01] MEDS: Roflumilast [Daliresp] 500 MCG Tablet PO SCH (08:20)
[2021-07-01] MEDS: Insulin LISPRO 300 UNITS/3 ML VIAL SUBQ SCH (08:20)
[2021-07-01] MEDS: Latanoprost 2.5 ML BOTTLE BOTH EYES SCH (08:21)
[2021-07-01] MEDS ORDERED: FLU Vac QV 21-22 (6Month+)/PF 0.5 ML SYRINGE IM ONE (09:00)
== END 2021-07-01 11:03 | disposition home or self-care (01) | DRG 190 ==
LOC: EMEROOARM 02:04 → CDU 02:04 → SUATTDRO 06:19 → 3NENU 09:47
PROVIDERS: ADMIT Internal Medicine; ATTEND Internal Medicine

== ENCOUNTER 2021-07-02 03:06 | Observation (INO) ==
[2021-07-02 04:50] LABS: Basophils % 0.1 %; Eosinophils # 0.2 K/mcL (0.0-0.6); Eosinophils % 2.4 %; Hemoglobin 12.6 g/dL (11.5-15.4); Immature Granulocytes % 1.2 % (0-4); Lymphocytes # 0.3 K/mcL (0.6-4.6); Lymphocytes % 3.7 %; Mean Corpuscular HGB Conc 31.5 g/dL (31.6-35.5); Mean Corpuscular Hemoglobin 26.8 pg (28.0-33.3); Mean Corpuscular Volume 85.1 fL (83.0-100.0); Mean Platelet Volume 10.1 fL (9.4-12.4); Monocytes # 0.4 K/mcL (0.0-1.3); Monocytes % 4.2 %; Neutrophils # 7.6 K/mcL (1.6-8.9); Platelet Count 183 K/mcL (140-400); Red Cell Distribution Width 14.9 % (11.5-14.5); Segmented Neutrophils % 88.4 %; White Blood Count 8.6 K/mcL (4.3-11.1)
[2021-07-02] MEDS ORDERED: Ipratropium/Albuterol Neb 3 ML IH ONE (04:54)
[2021-07-02] MEDS ORDERED: 0.9 % Sodium Chloride 1,000 ML IVC ONE ×2 (05:05→06:16)
[2021-07-02 05:12] LABS: BUN/Creatinine Ratio 36 (6-26); Blood Urea Nitrogen 21 mg/dL (8-23); Calcium 8.9 mg/dL (8.6-10.3); Carbon Dioxide 32 mEq/L (23-29); Chloride 99 mEq/L (98-107); Glucose 194 mg/dL (70-105); Osmolality,Calculated 294 (280-300); Sodium 138 mEq/L (136-145); eGFR For African Americans > 60 (> 60); eGFR For Non-African Americans > 60 (> 60)
[2021-07-02 05:36] LABS: Prothrombin Time 11.1 Seconds (9.4-12.1)
[2021-07-02 05:40] LABS: Activated Partial Thrombo Time 19.4 Seconds (26.0-36.0)
[2021-07-02] MEDS ORDERED: Ondansetron 4 MG/2 ML VIAL IVP PRN (06:06)
[2021-07-02] MEDS ORDERED: Acetaminophen 325 MG TABLET PO PRN (06:06)
[2021-07-02] MEDS ORDERED: Naloxone 0.4 MG/ML INJ IVP PRN (06:06)
[2021-07-02] MEDS ORDERED: Melatonin 3 MG TABLET PO PRN (06:06)
[2021-07-02] MEDS ORDERED: Albuterol 2.5 MG/3 ML NEBULIZER IH PRN (06:22)
[2021-07-02] MEDS ORDERED: Dextrose Gel 15 GM/37.5 ML TUBE PO PRN ×2 (06:38)
[2021-07-02] MEDS ORDERED: *HR* Dextrose 50 % in Water (Syg) 50 ML SYRINGE IVP PRN (06:38)
[2021-07-02] MEDS ORDERED: D5% in Water 1,000 ML IVC PRN (06:38)
[2021-07-02] MEDS: predniSONE 20 MG TABLET PO SCH (07:47)
[2021-07-02] MEDS: Azithromycin 250 MG TABLET PO SCH (07:48)
[2021-07-02] MEDS: Ipratropium/Albuterol Neb 3 ML IH SCH ×3 (11:04→19:45)
[2021-07-02] MEDS ORDERED: Nitroglycerin 0.4 MG TAB.SUBL SL PRN (11:25)
[2021-07-02] MEDS ORDERED: Insulin LISPRO 300 UNITS/3 ML VIAL SUBQ SCH (12:00)
[2021-07-02] MEDS: Aspirin Enteric Coated 81 MG Tablet PO SCH (12:58)
[2021-07-02] MEDS: Insulin LISPRO 300 UNITS/3 ML VIAL SUBQ SCH ×2 (12:59→16:31)
[2021-07-02] MEDS: Furosemide 20 MG TABLET PO SCH (16:30)
[2021-07-02] MEDS: *HR* Heparin 5,000 UNIT/ML VIAL SQ SCH (16:30)
[2021-07-02] MEDS: Budesonide/Formoterol 80/4.5 1 PUFF INH IH SCH (19:42)
[2021-07-02] MEDS ORDERED: Latanoprost 2.5 ML BOTTLE BOTH EYES SCH (21:00)
[2021-07-02] MEDS: CYCLOSPORINE 0.05% OP SCH (21:31)
[2021-07-03] MEDS: Ipratropium/Albuterol Neb 3 ML IH SCH ×2 (03:04→09:42)
[2021-07-03] MEDS: *HR* Heparin 5,000 UNIT/ML VIAL SQ SCH (05:33)
[2021-07-03 05:35] LABS: BUN/Creatinine Ratio 26 (6-26); Blood Urea Nitrogen 16 mg/dL (8-23); Calcium 8.3 mg/dL (8.6-10.3); Carbon Dioxide 24 mEq/L (23-29); Chloride 102 mEq/L (98-107); Glucose 226 mg/dL (70-105); Osmolality,Calculated 292 (280-300); Potassium 3.6 mEq/L (3.5-5.1); Sodium 137 mEq/L (136-145); eGFR For African Americans > 60 (> 60); eGFR For Non-African Americans > 60 (> 60)
[2021-07-03 06:36] LABS: Basophils % 0.3 %; Eosinophils # 0.2 K/mcL (0.0-0.6); Hematocrit 36.1 % (35.3-44.9); Immature Granulocytes % 1.5 % (0-4); Lymphocytes # 0.9 K/mcL (0.6-4.6); Lymphocytes % 14.4 %; Mean Corpuscular HGB Conc 31.6 g/dL (31.6-35.5); Mean Corpuscular Hemoglobin 26.7 pg (28.0-33.3); Mean Corpuscular Volume 84.5 fL (83.0-100.0); Mean Platelet Volume 9.7 fL (9.4-12.4); Monocytes # 0.4 K/mcL (0.0-1.3); Monocytes % 6.3 %; Neutrophils # 4.4 K/mcL (1.6-8.9); Platelet Count 161 K/mcL (140-400); Red Blood Count 4.27 M/mcL (3.82-4.97); Red Cell Distribution Width 14.8 % (11.5-14.5); Segmented Neutrophils % 73.5 %
[2021-07-03 06:37] LABS: Hemoglobin 11.4 g/dL (11.5-15.4)
[2021-07-03 07:32] VITALS: BP 100/63; PULSE 101; TEMP 98.3
[2021-07-03] MEDS: predniSONE 20 MG TABLET PO SCH (08:10)
[2021-07-03] MEDS: Furosemide 20 MG TABLET PO SCH (08:10)
[2021-07-03] MEDS: Aspirin Enteric Coated 81 MG Tablet PO SCH (08:10)
[2021-07-03] MEDS: Azithromycin 250 MG TABLET PO SCH (08:11)
[2021-07-03] MEDS: Insulin LISPRO 300 UNITS/3 ML VIAL SUBQ SCH (08:56)
[2021-07-03] MEDS: CYCLOSPORINE 0.05% OP SCH (08:59)
[2021-07-03] MEDS ORDERED: Cholecalciferol (D-3) 1,000 UNIT (25MCG) TABLET PO SCH (09:00)
[2021-07-03] MEDS ORDERED: Cyanocobalamin (B-12) 1,000 MCG TABLET PO SCH (09:00)
[2021-07-03] MEDS: Budesonide/Formoterol 80/4.5 1 PUFF INH IH SCH (09:42)
[2021-07-03] MEDS ORDERED: Tiotropium 10 INH DOSE IH SCH (10:00)
[2021-07-03 10:49] VITALS: O2SAT 96
== END 2021-07-03 12:46 | disposition home or self-care (01) ==
LOC: EMEROOARM 03:06 → 3BNU 03:06 → SUATTDRO 05:58 → 3BNU 06:31
PROVIDERS: ADMIT Internal Medicine; ATTEND Internal Medicine

== ENCOUNTER 2021-09-10 09:32 | Observation (INO) ==
[2021-09-10] MEDS ORDERED: predniSONE 20 MG TABLET PO ONE (09:38)
[2021-09-10 10:06] LABS: Basophils % 0.3 %; Eosinophils # 0.3 K/mcL (0.0-0.6); Eosinophils % 4.2 %; Hematocrit 44.1 % (35.3-44.9); Hemoglobin 13.1 g/dL (11.5-15.4); Immature Granulocytes % 0.3 % (0-4); Lymphocytes # 1.5 K/mcL (0.6-4.6); Lymphocytes % 23.3 %; Mean Corpuscular HGB Conc 29.7 g/dL (31.6-35.5); Mean Corpuscular Hemoglobin 25.5 pg (28.0-33.3); Mean Corpuscular Volume 85.8 fL (83.0-100.0); Mean Platelet Volume 9.4 fL (9.4-12.4); Monocytes # 0.4 K/mcL (0.0-1.3); Monocytes % 6.2 %; Neutrophils # 4.2 K/mcL (1.6-8.9); Platelet Count 219 K/mcL (140-400); Red Blood Count 5.14 M/mcL (3.82-4.97); Red Cell Distribution Width 14.8 % (11.5-14.5); Segmented Neutrophils % 65.7 %; White Blood Count 6.4 K/mcL (4.3-11.1)
[2021-09-10 10:13] LABS: Prothrombin Time 11.2 Seconds (9.4-12.1)
[2021-09-10 10:16] LABS: Activated Partial Thrombo Time 29.9 Seconds (26.0-36.0)
[2021-09-10 10:27] LABS: Alanine Aminotransferase 26 Units/L (7-52); Albumin 4.1 g/dL (3.5-5.7); Albumin/Globulin Ratio 1.6 (1.1-2.2); Alkaline Phosphatase 33 Units/L (34-104); Aspartate Amino Transferase 23 Units/L (13-39); BUN/Creatinine Ratio 36 (6-26); Bilirubin,Direct 0.1 mg/dL (0.0-0.2); Bilirubin,Indirect 0.5 mg/dL (0.0-1.0); Bilirubin,Total 0.6 mg/dL (0.3-1.0); Blood Urea Nitrogen 23 mg/dL (8-23); Calcium 9.3 mg/dL (8.6-10.3); Carbon Dioxide 30 mEq/L (23-29); Chloride 100 mEq/L (98-107); Globulin 2.6 g/dL (2.4-3.5); Glucose 205 mg/dL (70-105); Osmolality,Calculated 296 (280-300); Potassium 3.8 mEq/L (3.5-5.1); Sodium 138 mEq/L (136-145); Total Protein 6.7 g/dL (6.4-8.9); Troponin I < 0.03 ng/mL (< 0.04); eGFR For African Americans > 60 (> 60); eGFR For Non-African Americans > 60 (> 60)
[2021-09-10 10:52] LABS: Influenza A PCR Negative (Negative); Influenza B PCR Negative (Negative); Resp. Syncytial Virus PCR Negative (Negative)
[2021-09-10 11:17] LABS: SARS-CoV-2 by PCR (In House) Negative (Negative)
[2021-09-10] MEDS ORDERED: Azithromycin 250 MG TABLET PO ONE (11:27)
[2021-09-10] MEDS ORDERED: Naloxone 0.4 MG/ML INJ IVP PRN (12:16)
[2021-09-10] MEDS: Budesonide/Formoterol 160/4.5 1 PUFF INH IH SCH ×2 (15:18→19:20)
[2021-09-10] MEDS: Ipratropium/Albuterol Neb 3 ML IH SCH ×3 (15:42→23:45)
[2021-09-10] MEDS ORDERED: 0.9 % Sodium Chloride 1,000 ML IV ONE (20:45)
[2021-09-11 02:52] LABS: Basophils % 0.3 %; Eosinophils % 0.5 %; Hematocrit 39.3 % (35.3-44.9); Hemoglobin 11.9 g/dL (11.5-15.4); Immature Granulocytes % 0.3 % (0-4); Lymphocytes # 1.2 K/mcL (0.6-4.6); Lymphocytes % 14.2 %; Mean Corpuscular HGB Conc 30.3 g/dL (31.6-35.5); Mean Corpuscular Volume 85.8 fL (83.0-100.0); Mean Platelet Volume 9.9 fL (9.4-12.4); Monocytes # 0.6 K/mcL (0.0-1.3); Monocytes % 6.7 %; Neutrophils # 6.8 K/mcL (1.6-8.9); Platelet Count 197 K/mcL (140-400); Red Blood Count 4.58 M/mcL (3.82-4.97); Red Cell Distribution Width 14.7 % (11.5-14.5); White Blood Count 8.7 K/mcL (4.3-11.1)
[2021-09-11 03:03] LABS: BUN/Creatinine Ratio 31 (6-26); Blood Urea Nitrogen 23 mg/dL (8-23); Calcium 9.3 mg/dL (8.6-10.3); Carbon Dioxide 25 mEq/L (23-29); Chloride 103 mEq/L (98-107); Glucose 269 mg/dL (70-105); Osmolality,Calculated 295 (280-300); Potassium 3.9 mEq/L (3.5-5.1); Sodium 136 mEq/L (136-145); eGFR For African Americans > 60 (> 60); eGFR For Non-African Americans > 60 (> 60)
[2021-09-11] MEDS: Ipratropium/Albuterol Neb 3 ML IH SCH ×6 (04:26→23:29)
[2021-09-11] MEDS: *HR* Enoxaparin 40 MG/0.4 ML SYRINGE SQ SCH (04:48)
[2021-09-11] MEDS: Budesonide/Formoterol 160/4.5 1 PUFF INH IH SCH ×2 (07:24→20:24)
[2021-09-11] MEDS ORDERED: Dextrose Gel 15 GM/37.5 ML TUBE PO PRN ×2 (08:00)
[2021-09-11] MEDS ORDERED: *HR* Dextrose 50 % in Water (Syg) 50 ML SYRINGE IVP PRN (08:00)
[2021-09-11] MEDS ORDERED: D5% in Water 1,000 ML IVC PRN (08:00)
[2021-09-11] MEDS: CYCLOSPORINE 0.05% OP SCH (08:20)
[2021-09-11] MEDS: Cholecalciferol (D-3) 1,000 UNIT (25MCG) TABLET PO SCH (08:57)
[2021-09-11] MEDS: Cyanocobalamin (B-12) 1,000 MCG TABLET PO SCH (08:57)
[2021-09-11] MEDS: predniSONE 20 MG TABLET PO SCH (08:57)
[2021-09-11] MEDS: Aspirin Enteric Coated 81 MG Tablet PO SCH (08:57)
[2021-09-11] MEDS: Furosemide 20 MG TABLET PO SCH (08:58)
[2021-09-11] MEDS: Azithromycin 250 MG TABLET PO SCH (11:20)
[2021-09-11] MEDS: Insulin LISPRO 300 UNITS/3 ML VIAL SUBQ SCH ×2 (12:28→17:08)
[2021-09-11] MEDS: Latanoprost 2.5 ML BOTTLE BOTH EYES SCH (21:03)
[2021-09-12] MEDS: Ipratropium/Albuterol Neb 3 ML IH SCH ×6 (03:32→23:47)
[2021-09-12] MEDS: Insulin LISPRO 300 UNITS/3 ML VIAL SUBQ SCH ×5 (05:06→21:34)
[2021-09-12] MEDS: CYCLOSPORINE 0.05% OP SCH ×2 (05:07→08:33)
[2021-09-12] MEDS: *HR* Enoxaparin 40 MG/0.4 ML SYRINGE SQ SCH (06:21)
[2021-09-12] MEDS: Budesonide/Formoterol 160/4.5 1 PUFF INH IH SCH ×2 (07:43→21:07)
[2021-09-12] MEDS: Furosemide 20 MG TABLET PO SCH (08:45)
[2021-09-12] MEDS: Cholecalciferol (D-3) 1,000 UNIT (25MCG) TABLET PO SCH (08:45)
[2021-09-12] MEDS: Cyanocobalamin (B-12) 1,000 MCG TABLET PO SCH (08:45)
[2021-09-12] MEDS: predniSONE 20 MG TABLET PO SCH (08:45)
[2021-09-12] MEDS: Aspirin Enteric Coated 81 MG Tablet PO SCH (08:45)
[2021-09-12] MEDS: Azithromycin 250 MG TABLET PO SCH ×2 (10:41→12:01)
[2021-09-12] MEDS: Latanoprost 2.5 ML BOTTLE BOTH EYES SCH (21:37)
[2021-09-12] MEDS: Artificial Tears SOLN 15 ML BOTTLE OP SCH (21:38)
[2021-09-13] MEDS: Ipratropium/Albuterol Neb 3 ML IH SCH ×2 (03:40→07:41)
[2021-09-13] MEDS: *HR* Enoxaparin 40 MG/0.4 ML SYRINGE SQ SCH (05:27)
[2021-09-13] MEDS: Budesonide/Formoterol 160/4.5 1 PUFF INH IH SCH (07:41)
[2021-09-13 07:53] VITALS: BP 130/73; PULSE 97; TEMP 97.6; O2SAT 99
[2021-09-13] MEDS: Insulin LISPRO 300 UNITS/3 ML VIAL SUBQ SCH (08:53)
[2021-09-13] MEDS: Cyanocobalamin (B-12) 1,000 MCG TABLET PO SCH (08:54)
[2021-09-13] MEDS: Aspirin Enteric Coated 81 MG Tablet PO SCH (08:54)
[2021-09-13] MEDS: Cholecalciferol (D-3) 1,000 UNIT (25MCG) TABLET PO SCH (08:54)
[2021-09-13] MEDS: Furosemide 20 MG TABLET PO SCH (08:54)
[2021-09-13] MEDS: predniSONE 20 MG TABLET PO SCH (08:54)
[2021-09-13] MEDS: Artificial Tears SOLN 15 ML BOTTLE OP SCH (08:55)
[2021-09-13] MEDS: Azithromycin 250 MG TABLET PO SCH (11:01)
== END 2021-09-13 12:10 | disposition home or self-care (01) ==
LOC: EMEROOARM 09:32 → 3BNU 09:32 → SUATTDRO 12:06 → 3BNU 12:50
PROVIDERS: ADMIT Internal Medicine; ATTEND Family Medicine

== ENCOUNTER 2021-11-03 08:47 | Inpatient (IN) ==
[2021-11-03] MEDS ORDERED: Ipratropium/Albuterol Neb 3 ML IH ONE (08:51)
[2021-11-03] MEDS ORDERED: methylPREDNISolone 125 MG/2 ML VIAL IVP ONE (08:51)
[2021-11-03 09:11] LABS: Basophils % 0.6 %; Eosinophils # 0.2 K/mcL (0.0-0.6); Eosinophils % 3.7 %; Hematocrit 40.1 % (35.3-44.9); Hemoglobin 12.3 g/dL (11.5-15.4); Immature Granulocytes % 0.3 % (0-4); Lymphocytes # 1.4 K/mcL (0.6-4.6); Lymphocytes % 22.1 %; Mean Corpuscular HGB Conc 30.7 g/dL (31.6-35.5); Mean Corpuscular Hemoglobin 26.3 pg (28.0-33.3); Mean Corpuscular Volume 85.7 fL (83.0-100.0); Mean Platelet Volume 9.2 fL (9.4-12.4); Monocytes # 0.5 K/mcL (0.0-1.3); Monocytes % 8.1 %; Neutrophils # 4.2 K/mcL (1.6-8.9); Platelet Count 209 K/mcL (140-400); Red Blood Count 4.68 M/mcL (3.82-4.97); Segmented Neutrophils % 65.2 %; White Blood Count 6.4 K/mcL (4.3-11.1)
[2021-11-03 09:33] LABS: BUN/Creatinine Ratio 33 (6-26); Blood Urea Nitrogen 19 mg/dL (8-23); Carbon Dioxide 31 mEq/L (23-29); Chloride 101 mEq/L (98-107); Glucose 204 mg/dL (70-105); Osmolality,Calculated 296 (280-300); Potassium 3.7 mEq/L (3.5-5.1); Sodium 139 mEq/L (136-145); Troponin I < 0.03 ng/mL (< 0.04); eGFR For African Americans > 60 (> 60); eGFR For Non-African Americans > 60 (> 60)
[2021-11-03] MEDS ORDERED: Naloxone 0.4 MG/ML INJ IVP PRN (11:33)
[2021-11-03] MEDS ORDERED: Melatonin 3 MG TABLET PO PRN (11:33)
[2021-11-03] MEDS ORDERED: Ondansetron 4 MG/2 ML VIAL IVP PRN (11:33)
[2021-11-03] MEDS: MethylPREDNISolone 40 MG/ML VIAL IVP SCH ×3 (12:53→23:40)
[2021-11-03] MEDS: Fluticasone Propionate Nasal 50 MCG/SPRAY BOTTLE NS SCH (15:23)
[2021-11-03] MEDS: Albuterol 2.5 MG/3 ML NEBULIZER IH SCH ×4 (15:41→23:55)
[2021-11-03] MEDS ORDERED: Insulin Human Regular 10 UNIT in 0.9 % Sodium Chloride 10 ML IV ONE (16:45)
[2021-11-03] MEDS: Insulin LISPRO 300 UNITS/3 ML VIAL SUBQ SCH ×2 (17:39→20:11)
[2021-11-03] MEDS: Latanoprost 2.5 ML BOTTLE BOTH EYES SCH (20:10)
[2021-11-03] MEDS ORDERED: Insulin DETEMIR 100 UNIT/ML X5UNITS SUBQ SCH (21:00)
[2021-11-03] MEDS ORDERED: *HR* Labetalol 20 MG/4 ML SYRINGE IVP ONE (21:41)
[2021-11-04 01:21] LABS: Hematocrit 39.3 % (35.3-44.9); Hemoglobin 12.2 g/dL (11.5-15.4); Immature Granulocytes % 0.3 % (0-4); Lymphocytes # 0.4 K/mcL (0.6-4.6); Lymphocytes % 4.2 %; Mean Corpuscular Hemoglobin 26.3 pg (28.0-33.3); Mean Corpuscular Volume 84.9 fL (83.0-100.0); Mean Platelet Volume 9.6 fL (9.4-12.4); Monocytes # 0.1 K/mcL (0.0-1.3); Monocytes % 0.9 %; Neutrophils # 9.2 K/mcL (1.6-8.9); Platelet Count 235 K/mcL (140-400); Red Blood Count 4.63 M/mcL (3.82-4.97); Red Cell Distribution Width 15.2 % (11.5-14.5); Segmented Neutrophils % 94.6 %
[2021-11-04 01:23] LABS: White Blood Count 9.7 K/mcL (4.3-11.1)
[2021-11-04 01:41] LABS: BUN/Creatinine Ratio 41 (6-26); Blood Urea Nitrogen 26 mg/dL (8-23); Calcium 9.3 mg/dL (8.6-10.3); Carbon Dioxide 25 mEq/L (23-29); Chloride 102 mEq/L (98-107); Glucose 283 mg/dL (70-105); Osmolality,Calculated 299 (280-300); Potassium 4.5 mEq/L (3.5-5.1); Sodium 137 mEq/L (136-145); eGFR For African Americans > 60 (> 60); eGFR For Non-African Americans > 60 (> 60)
[2021-11-04] MEDS: Albuterol 2.5 MG/3 ML NEBULIZER IH SCH ×3 (03:54→11:06)
[2021-11-04] MEDS: MethylPREDNISolone 40 MG/ML VIAL IVP SCH ×3 (05:30→16:40)
[2021-11-04] MEDS: Aspirin Enteric Coated 81 MG Tablet PO SCH (07:45)
[2021-11-04] MEDS: Insulin LISPRO 300 UNITS/3 ML VIAL SUBQ SCH ×4 (07:45→21:03)
[2021-11-04] MEDS: Fluticasone Propionate Nasal 50 MCG/SPRAY BOTTLE NS SCH (07:45)
[2021-11-04] MEDS: Cholecalciferol (D-3) 1,000 UNIT (25MCG) TABLET PO SCH (07:45)
[2021-11-04] MEDS: Cyanocobalamin (B-12) 1,000 MCG TABLET PO SCH (07:45)
[2021-11-04] MEDS ORDERED: Furosemide 20 MG TABLET PO SCH (09:00)
[2021-11-04 14:16] LABS: Estimated Average Glucose 252 mg/dl; Hemoglobin A1C 10.4 %
[2021-11-04] MEDS: Levalbuterol Neb 0.63 MG/3 ML IH SCH ×2 (15:24→19:49)
[2021-11-04] MEDS ORDERED: Insulin DETEMIR 100 UNIT/ML X5UNITS SUBQ SCH (21:00)
[2021-11-04] MEDS: Latanoprost 2.5 ML BOTTLE BOTH EYES SCH (21:04)
[2021-11-05] MEDS ORDERED: Levalbuterol Neb 0.63 MG/3 ML ONE (00:40)
[2021-11-05] MEDS: Levalbuterol Neb 0.63 MG/3 ML IH PRN ×2 (00:48→12:28)
[2021-11-05 02:46] LABS: Basophils % 0.1 %; Hematocrit 37.5 % (35.3-44.9); Hemoglobin 11.4 g/dL (11.5-15.4); Immature Granulocytes % 0.7 % (0-4); Lymphocytes # 0.6 K/mcL (0.6-4.6); Lymphocytes % 3.4 %; Mean Corpuscular HGB Conc 30.4 g/dL (31.6-35.5); Mean Corpuscular Hemoglobin 25.6 pg (28.0-33.3); Mean Corpuscular Volume 84.1 fL (83.0-100.0); Mean Platelet Volume 9.9 fL (9.4-12.4); Monocytes # 0.6 K/mcL (0.0-1.3); Monocytes % 3.5 %; Neutrophils # 15.8 K/mcL (1.6-8.9); Platelet Count 214 K/mcL (140-400); Red Blood Count 4.46 M/mcL (3.82-4.97); Red Cell Distribution Width 15.1 % (11.5-14.5); Segmented Neutrophils % 92.3 %
[2021-11-05 02:49] LABS: White Blood Count 17.1 K/mcL (4.3-11.1)
[2021-11-05 02:58] LABS: BUN/Creatinine Ratio 36 (6-26); Blood Urea Nitrogen 26 mg/dL (8-23); Carbon Dioxide 26 mEq/L (23-29); Chloride 102 mEq/L (98-107); Glucose 282 mg/dL (70-105); Osmolality,Calculated 297 (280-300); Potassium 4.1 mEq/L (3.5-5.1); Sodium 136 mEq/L (136-145); eGFR For African Americans > 60 (> 60); eGFR For Non-African Americans > 60 (> 60)
[2021-11-05] MEDS: Levalbuterol Neb 0.63 MG/3 ML IH SCH ×5 (03:44→20:39)
[2021-11-05] MEDS: MethylPREDNISolone 40 MG/ML VIAL IVP SCH (05:55)
[2021-11-05] MEDS: Cholecalciferol (D-3) 1,000 UNIT (25MCG) TABLET PO SCH (08:11)
[2021-11-05] MEDS: predniSONE 20 MG TABLET PO SCH (08:11)
[2021-11-05] MEDS: Aspirin Enteric Coated 81 MG Tablet PO SCH (08:11)
[2021-11-05] MEDS: Azithromycin 250 MG TABLET PO SCH (08:12)
[2021-11-05] MEDS: Cyanocobalamin (B-12) 1,000 MCG TABLET PO SCH (08:12)
[2021-11-05] MEDS: Fluticasone Propionate Nasal 50 MCG/SPRAY BOTTLE NS SCH (08:14)
[2021-11-05] MEDS: Insulin LISPRO 300 UNITS/3 ML VIAL SUBQ SCH ×4 (08:17→22:14)
[2021-11-05] MEDS: Insulin DETEMIR 100 UNIT/ML X5UNITS SUBQ SCH ×2 (09:12→22:18)
[2021-11-05] MEDS ORDERED: cefTRIAXone 1,000 MG in 0.9 % Sodium Chloride 10 ML IVP SCH (12:00)
[2021-11-05 13:17] LABS: Bilirubin,Urine Negative (Negative); Blood,Urine Trace (Negative); Clarity,Urine Clear (Clear); Color,Urine Light-Yellow (Yellow); Glucose,Urine (UA) >=1000 mg/dL (Normal); Ketones,Urine Negative (Negative); Leukocyte Esterase,Urine Negative (Negative); Mucus,Urine Few per lpf (None-Few); Nitrite,Urine Negative (Negative); PH,Urine 5.5 pH Units (5.0-8.0); Protein,Urine Negative (Neg-Trace); RBC,Urine 0-3 per hpf (0-3); Specific Gravity,Urine > 1.030 (1.010-1.025); Squamous Epithelial Cell,Urine Few per hpf (None-Few); Urobilinogen,Urine Normal (Normal); WBC,Urine 0-3 per hpf (0-3)
[2021-11-05] MEDS: Latanoprost 2.5 ML BOTTLE BOTH EYES SCH (22:14)
[2021-11-06] MEDS: Levalbuterol Neb 0.63 MG/3 ML IH SCH ×3 (00:27→09:04)
[2021-11-06] MEDS: Levalbuterol Neb 0.63 MG/3 ML IH PRN (00:27)
[2021-11-06 01:40] LABS: Basophils % 0.1 %; Hematocrit 39.1 % (35.3-44.9); Hemoglobin 12.2 g/dL (11.5-15.4); Immature Granulocytes % 0.7 % (0-4); Lymphocytes # 1.5 K/mcL (0.6-4.6); Mean Corpuscular HGB Conc 31.2 g/dL (31.6-35.5); Mean Corpuscular Hemoglobin 25.8 pg (28.0-33.3); Mean Corpuscular Volume 82.7 fL (83.0-100.0); Mean Platelet Volume 9.7 fL (9.4-12.4); Monocytes # 0.9 K/mcL (0.0-1.3); Monocytes % 5.3 %; Neutrophils # 13.7 K/mcL (1.6-8.9); Platelet Count 244 K/mcL (140-400); Red Blood Count 4.73 M/mcL (3.82-4.97); Red Cell Distribution Width 15.3 % (11.5-14.5); Segmented Neutrophils % 84.9 %; White Blood Count 16.2 K/mcL (4.3-11.1)
[2021-11-06] MEDS ORDERED: Simethicone 80 MG TAB.CHEW PO PRN (02:30)
[2021-11-06 03:13] LABS: BUN/Creatinine Ratio 33 (6-26); Blood Urea Nitrogen 27 mg/dL (8-23); Calcium 9.2 mg/dL (8.6-10.3); Carbon Dioxide 27 mEq/L (23-29); Chloride 102 mEq/L (98-107); Glucose 256 mg/dL (70-105); Osmolality,Calculated 300 (280-300); Sodium 138 mEq/L (136-145); eGFR For African Americans > 60 (> 60); eGFR For Non-African Americans > 60 (> 60)
[2021-11-06] MEDS: Cholecalciferol (D-3) 1,000 UNIT (25MCG) TABLET PO SCH (07:23)
[2021-11-06] MEDS: Cyanocobalamin (B-12) 1,000 MCG TABLET PO SCH (07:24)
[2021-11-06] MEDS: Azithromycin 250 MG TABLET PO SCH (07:24)
[2021-11-06] MEDS: Fluticasone Propionate Nasal 50 MCG/SPRAY BOTTLE NS SCH (07:24)
[2021-11-06] MEDS: Insulin LISPRO 300 UNITS/3 ML VIAL SUBQ SCH ×2 (07:24→11:32)
[2021-11-06] MEDS: Aspirin Enteric Coated 81 MG Tablet PO SCH (07:24)
[2021-11-06] MEDS: predniSONE 20 MG TABLET PO SCH (07:24)
[2021-11-06] MEDS: Insulin DETEMIR 100 UNIT/ML X5UNITS SUBQ SCH (07:27)
[2021-11-06] MEDS ORDERED: levoFLOXacin 750 MG TABLET PO SCH (09:00)
[2021-11-06] MEDS ORDERED: Insulin DETEMIR 100 UNIT/ML X5UNITS SUBQ SCH (09:00)
[2021-11-06 10:45] VITALS: BP 126/56; PULSE 87; TEMP 98.4; O2SAT 95
== END 2021-11-06 12:40 | disposition home or self-care (01) | DRG 191 ==
LOC: EMEROOARM 08:47 → 2ANU 08:47 → SUATTDRO 10:55 → 2ANU 11:56
PROVIDERS: ADMIT Internal Medicine; ATTEND General Practice

== ENCOUNTER 2021-11-20 04:07 | Inpatient (IN) ==
[2021-11-20] MEDS ORDERED: Ipratropium/Albuterol Neb 3 ML IH ONE (04:38)
[2021-11-20] MEDS ORDERED: Azithromycin 500 MG in 0.9 % Sodium Chloride 250 ML IVPB ONE (04:39)
[2021-11-20] MEDS ORDERED: methylPREDNISolone 125 MG/2 ML VIAL IVP ONE (04:39)
[2021-11-20 04:54] LABS: VBG HCO3 29 mEq/L (21-27); VBG PCO2 55 mmHg (41-51); VBG PH 7.33 pH Units (7.32-7.42); VBG PO2 157 mmHg (25-50)
[2021-11-20 05:01] LABS: Basophils % 0.5 %; Eosinophils # 0.4 K/mcL (0.0-0.6); Eosinophils % 5.4 %; Hematocrit 41.9 % (35.3-44.9); Hemoglobin 12.6 g/dL (11.5-15.4); Immature Granulocytes % 0.6 % (0-4); Lymphocytes # 1.8 K/mcL (0.6-4.6); Lymphocytes % 21.9 %; Mean Corpuscular HGB Conc 30.1 g/dL (31.6-35.5); Mean Corpuscular Hemoglobin 26.3 pg (28.0-33.3); Mean Corpuscular Volume 87.5 fL (83.0-100.0); Mean Platelet Volume 9.8 fL (9.4-12.4); Monocytes # 0.5 K/mcL (0.0-1.3); Monocytes % 6.6 %; Neutrophils # 5.2 K/mcL (1.6-8.9); Platelet Count 245 K/mcL (140-400); Red Blood Count 4.79 M/mcL (3.82-4.97); Red Cell Distribution Width 15.8 % (11.5-14.5)
[2021-11-20 05:09] LABS: INR 0.9; Prothrombin Time 10.1 Seconds (9.4-12.1)
[2021-11-20 05:12] LABS: Activated Partial Thrombo Time 28.3 Seconds (26.0-36.0); Alanine Aminotransferase 32 Units/L (7-52); Albumin 4.1 g/dL (3.5-5.7); Albumin/Globulin Ratio 1.9 (1.1-2.2); Alkaline Phosphatase 39 Units/L (34-104); Aspartate Amino Transferase 22 Units/L (13-39); BUN/Creatinine Ratio 17 (6-26); Bilirubin,Indirect 0.4 mg/dL (0.0-1.0); Bilirubin,Total 0.4 mg/dL (0.3-1.0); Blood Urea Nitrogen 16 mg/dL (8-23); Calcium 9.6 mg/dL (8.6-10.3); Carbon Dioxide 26 mEq/L (23-29); Chloride 105 mEq/L (98-107); Globulin 2.2 g/dL (2.4-3.5); Glucose 247 mg/dL (70-105); Osmolality,Calculated 305 (280-300); Sodium 143 mEq/L (136-145); Total Protein 6.3 g/dL (6.4-8.9); Troponin I < 0.03 ng/mL (< 0.04); eGFR For African Americans > 60 (> 60); eGFR For Non-African Americans > 60 (> 60)
[2021-11-20 06:14] LABS: Adenovirus Not Detected (Not Detect); Bordetella Pertussis Not Detected (Not Detect); Chlamydophila pneumoniae Not Detected (Not Detect); Coronavirus 229E Not Detected (Not Detect); Coronavirus HKU1 Not Detected (Not Detect); Coronavirus NL63 Not Detected (Not Detect); Coronavirus OC43 Not Detected (Not Detect); Human Metapneumovirus Not Detected (Not Detect); Human Rhinovirus/Enterovirus Not Detected (Not Detect); Influenza A Subtype 2009 H1 Not Detected (Not Detect); Influenza B Not Detected (Not Detect); Mycoplasma pneumoniae Not Detected (Not Detect); Parainfluenza Virus 1 Not Detected (Not Detect); Parainfluenza Virus 2 Not Detected (Not Detect); Parainfluenza Virus 3 Not Detected (Not Detect); Parainfluenza Virus 4 Not Detected (Not Detect); Respiratory Syncytial Virus Not Detected (Not Detect); SARS-CoV-2 Not Detected (Not Detect)
[2021-11-20] MEDS ORDERED: Albuterol 2.5 MG/3 ML NEBULIZER IH ONE (06:19)
[2021-11-20] MEDS ORDERED: Ondansetron 4 MG/2 ML VIAL IVP PRN (07:10)
[2021-11-20] MEDS ORDERED: *HR* Dextrose 50 % in Water (Syg) 50 ML SYRINGE IVP PRN (07:10)
[2021-11-20] MEDS ORDERED: Dextrose 4 GM Chewable Tablets PO PRN ×2 (07:10)
[2021-11-20] MEDS ORDERED: D5% in Water 1,000 ML IVC PRN (07:10)
[2021-11-20] MEDS ORDERED: Naloxone 0.4 MG/ML INJ IVP PRN (07:10)
[2021-11-20] MEDS ORDERED: Ipratropium/Albuterol Neb 3 ML IH PRN (07:13)
[2021-11-20] MEDS: Insulin DETEMIR 100 UNIT/ML X5UNITS SUBQ SCH ×2 (09:28→22:12)
[2021-11-20] MEDS: Insulin LISPRO 300 UNITS/3 ML VIAL SUBQ SCH ×3 (09:28→17:29)
[2021-11-20] MEDS: Ipratropium/Albuterol Neb 3 ML IH SCH ×3 (10:57→20:19)
[2021-11-20] MEDS: MethylPREDNISolone 40 MG/ML VIAL IVP SCH (17:29)
[2021-11-20] MEDS ORDERED: Insulin LISPRO 300 UNITS/3 ML VIAL SUBQ SCH (21:00)
[2021-11-20] MEDS: Acetaminophen 325 MG TABLET PO PRN (22:11)
[2021-11-20] MEDS: Latanoprost 2.5 ML BOTTLE BOTH EYES SCH (22:12)
[2021-11-21] MEDS: Ipratropium/Albuterol Neb 3 ML IH SCH ×4 (04:13→20:07)
[2021-11-21] MEDS: MethylPREDNISolone 40 MG/ML VIAL IVP SCH ×2 (05:32→17:46)
[2021-11-21 06:05] LABS: Basophils % 0.1 %; Hematocrit 39.2 % (35.3-44.9); Hemoglobin 11.6 g/dL (11.5-15.4); Immature Granulocytes % 0.8 % (0-4); Lymphocytes # 0.7 K/mcL (0.6-4.6); Lymphocytes % 5.9 %; Mean Corpuscular HGB Conc 29.6 g/dL (31.6-35.5); Mean Corpuscular Hemoglobin 25.5 pg (28.0-33.3); Mean Corpuscular Volume 86.2 fL (83.0-100.0); Mean Platelet Volume 9.8 fL (9.4-12.4); Monocytes # 0.4 K/mcL (0.0-1.3); Monocytes % 3.6 %; Neutrophils # 10.2 K/mcL (1.6-8.9); Platelet Count 232 K/mcL (140-400); Red Blood Count 4.55 M/mcL (3.82-4.97); Red Cell Distribution Width 15.5 % (11.5-14.5); Segmented Neutrophils % 89.6 %; White Blood Count 11.4 K/mcL (4.3-11.1)
[2021-11-21 06:27] LABS: BUN/Creatinine Ratio 41 (6-26); Blood Urea Nitrogen 26 mg/dL (8-23); Calcium 10.2 mg/dL (8.6-10.3); Carbon Dioxide 28 mEq/L (23-29); Chloride 103 mEq/L (98-107); Glucose 247 mg/dL (70-105); Magnesium 2.2 mg/dL (1.6-2.6); Osmolality,Calculated 303 (280-300); Potassium 4.3 mEq/L (3.5-5.1); Sodium 140 mEq/L (136-145); eGFR For African Americans > 60 (> 60); eGFR For Non-African Americans > 60 (> 60)
[2021-11-21] MEDS: Tiotropium 10 INH DOSE IH SCH (07:22)
[2021-11-21] MEDS: Aspirin Enteric Coated 81 MG Tablet PO SCH (07:44)
[2021-11-21] MEDS: Insulin DETEMIR 100 UNIT/ML X5UNITS SUBQ SCH ×2 (07:44→20:15)
[2021-11-21] MEDS: Cholecalciferol (D-3) 1,000 UNIT (25MCG) TABLET PO SCH (07:44)
[2021-11-21] MEDS: Cyanocobalamin (B-12) 1,000 MCG TABLET PO SCH (07:44)
[2021-11-21] MEDS: Azithromycin 500 MG in 0.9 % Sodium Chloride 250 ML IVPB SCH (07:45)
[2021-11-21] MEDS: Insulin LISPRO 300 UNITS/3 ML VIAL SUBQ SCH ×4 (07:51→20:33)
[2021-11-21] MEDS: Acetaminophen 325 MG TABLET PO PRN (20:15)
[2021-11-21] MEDS: Latanoprost 2.5 ML BOTTLE BOTH EYES SCH (20:15)
[2021-11-22] MEDS: Ipratropium/Albuterol Neb 3 ML IH SCH ×5 (03:44→20:08)
[2021-11-22 06:01] LABS: Basophils % 0.1 %; Hematocrit 38.1 % (35.3-44.9); Hemoglobin 11.6 g/dL (11.5-15.4); Immature Granulocytes % 0.9 % (0-4); Lymphocytes # 0.8 K/mcL (0.6-4.6); Lymphocytes % 5.7 %; Mean Corpuscular HGB Conc 30.4 g/dL (31.6-35.5); Mean Corpuscular Hemoglobin 25.9 pg (28.0-33.3); Mean Platelet Volume 11.1 fL (9.4-12.4); Monocytes # 0.4 K/mcL (0.0-1.3); Monocytes % 2.4 %; Platelet Count 199 K/mcL (140-400); Red Blood Count 4.48 M/mcL (3.82-4.97); Red Cell Distribution Width 15.4 % (11.5-14.5); Segmented Neutrophils % 90.9 %; White Blood Count 14.3 K/mcL (4.3-11.1)
[2021-11-22] MEDS: MethylPREDNISolone 40 MG/ML VIAL IVP SCH ×2 (06:20→16:52)
[2021-11-22 06:21] LABS: BUN/Creatinine Ratio 43 (6-26); Blood Urea Nitrogen 25 mg/dL (8-23); Calcium 9.4 mg/dL (8.6-10.3); Carbon Dioxide 27 mEq/L (23-29); Chloride 101 mEq/L (98-107); Sodium 139 mEq/L (136-145); eGFR For African Americans > 60 (> 60); eGFR For Non-African Americans > 60 (> 60)
[2021-11-22] MEDS: Tiotropium 10 INH DOSE IH SCH (07:14)
[2021-11-22] MEDS: Azithromycin 500 MG in 0.9 % Sodium Chloride 250 ML IVPB SCH (08:29)
[2021-11-22] MEDS: Insulin DETEMIR 100 UNIT/ML X5UNITS SUBQ SCH ×2 (08:29→22:16)
[2021-11-22] MEDS: Insulin LISPRO 300 UNITS/3 ML VIAL SUBQ SCH ×4 (08:38→22:16)
[2021-11-22 08:47] LABS: Glucose 212 mg/dL (70-105); Osmolality,Calculated 299 (280-300)
[2021-11-22] MEDS: Cholecalciferol (D-3) 1,000 UNIT (25MCG) TABLET PO SCH (10:16)
[2021-11-22] MEDS: Cyanocobalamin (B-12) 1,000 MCG TABLET PO SCH (10:16)
[2021-11-22] MEDS: Aspirin Enteric Coated 81 MG Tablet PO SCH (10:16)
[2021-11-22] MEDS: Latanoprost 2.5 ML BOTTLE BOTH EYES SCH (22:17)
[2021-11-23] MEDS: Ipratropium/Albuterol Neb 3 ML IH SCH ×3 (00:15→08:07)
[2021-11-23 01:30] LABS: Basophils % 0.1 %; Hematocrit 40.2 % (35.3-44.9); Hemoglobin 12.4 g/dL (11.5-15.4); Immature Granulocytes % 0.8 % (0-4); Lymphocytes # 0.5 K/mcL (0.6-4.6); Mean Corpuscular HGB Conc 30.8 g/dL (31.6-35.5); Mean Corpuscular Hemoglobin 26.2 pg (28.0-33.3); Mean Corpuscular Volume 84.8 fL (83.0-100.0); Mean Platelet Volume 10.1 fL (9.4-12.4); Monocytes # 0.3 K/mcL (0.0-1.3); Monocytes % 2.8 %; Neutrophils # 11.3 K/mcL (1.6-8.9); Platelet Count 252 K/mcL (140-400); Red Blood Count 4.74 M/mcL (3.82-4.97); Red Cell Distribution Width 15.4 % (11.5-14.5); Segmented Neutrophils % 92.3 %; White Blood Count 12.3 K/mcL (4.3-11.1)
[2021-11-23 01:44] LABS: BUN/Creatinine Ratio 40 (6-26); Blood Urea Nitrogen 25 mg/dL (8-23); Calcium 9.7 mg/dL (8.6-10.3); Carbon Dioxide 28 mEq/L (23-29); Chloride 101 mEq/L (98-107); Glucose 362 mg/dL (70-105); Osmolality,Calculated 303 (280-300); Potassium 4.3 mEq/L (3.5-5.1); Sodium 137 mEq/L (136-145); eGFR For African Americans > 60 (> 60); eGFR For Non-African Americans > 60 (> 60)
[2021-11-23] MEDS: MethylPREDNISolone 40 MG/ML VIAL IVP SCH (06:32)
[2021-11-23] MEDS: Tiotropium 10 INH DOSE IH SCH (08:08)
[2021-11-23] MEDS: Insulin LISPRO 300 UNITS/3 ML VIAL SUBQ SCH (08:22)
[2021-11-23] MEDS: Cyanocobalamin (B-12) 1,000 MCG TABLET PO SCH (08:23)
[2021-11-23] MEDS: Cholecalciferol (D-3) 1,000 UNIT (25MCG) TABLET PO SCH (08:23)
[2021-11-23] MEDS: Aspirin Enteric Coated 81 MG Tablet PO SCH (08:23)
[2021-11-23] MEDS: Azithromycin 500 MG in 0.9 % Sodium Chloride 250 ML IVPB SCH (08:24)
[2021-11-23 08:57] VITALS: BP 149/88; PULSE 107; TEMP 97.8; O2SAT 97
[2021-11-23] MEDS: Insulin DETEMIR 100 UNIT/ML X5UNITS SUBQ SCH (09:21)
== END 2021-11-23 10:00 | disposition home or self-care (01) | DRG 191 ==
LOC: 3NENU 04:07 → EMEROOARM 04:07 → SUATTDRO 06:29 → 3NENU 08:06
PROVIDERS: ADMIT Internal Medicine; ATTEND Family Medicine

== ENCOUNTER 2021-12-18 09:37 | Inpatient (IN) ==
[2021-12-18] MEDS ORDERED: Ipratropium/Albuterol Neb 3 ML IH ONE (09:48)
[2021-12-18] MEDS ORDERED: levoFLOXacin 750 MG/150 ML 750 MG/150 ML BAG IVPB ONE (09:48)
[2021-12-18] MEDS ORDERED: methylPREDNISolone 125 MG/2 ML VIAL IVP ONE (09:48)
[2021-12-18 10:14] LABS: Basophils # 0.1 K/mcL (0.0-0.2); Basophils % 0.6 %; Eosinophils # 0.4 K/mcL (0.0-0.6); Hematocrit 41.9 % (35.3-44.9); Hemoglobin 12.5 g/dL (11.5-15.4); Lymphocytes # 1.4 K/mcL (0.6-4.6); Lymphocytes % 17.5 %; Mean Corpuscular HGB Conc 29.8 g/dL (31.6-35.5); Mean Corpuscular Hemoglobin 25.6 pg (28.0-33.3); Mean Corpuscular Volume 85.7 fL (83.0-100.0); Mean Platelet Volume 9.6 fL (9.4-12.4); Monocytes # 0.7 K/mcL (0.0-1.3); Monocytes % 8.6 %; Neutrophils # 5.4 K/mcL (1.6-8.9); Platelet Count 232 K/mcL (140-400); Red Blood Count 4.89 M/mcL (3.82-4.97); Red Cell Distribution Width 15.1 % (11.5-14.5); Segmented Neutrophils % 67.3 %
[2021-12-18 10:30] LABS: BUN/Creatinine Ratio 30 (6-26); Blood Urea Nitrogen 16 mg/dL (8-23); Carbon Dioxide 32 mEq/L (23-29); Chloride 101 mEq/L (98-107); Glucose 197 mg/dL (70-105); Osmolality,Calculated 295 (280-300); Potassium 4.1 mEq/L (3.5-5.1); Sodium 139 mEq/L (136-145); Troponin I < 0.03 ng/mL (< 0.04); eGFR For African Americans > 60 (> 60); eGFR For Non-African Americans > 60 (> 60)
[2021-12-18] MEDS ORDERED: Naloxone 0.4 MG/ML INJ IVP PRN (11:47)
[2021-12-18] MEDS ORDERED: Dextrose 4 GM Chewable Tablets PO PRN ×2 (12:25)
[2021-12-18] MEDS ORDERED: *HR* Dextrose 50 % in Water (Syg) 50 ML SYRINGE IVP PRN (12:25)
[2021-12-18] MEDS ORDERED: D5% in Water 1,000 ML IVC PRN (12:25)
[2021-12-18] MEDS ORDERED: Acetaminophen 325 MG TABLET PO PRN (12:28)
[2021-12-18] MEDS: *HR* Heparin 5,000 UNIT/ML VIAL SQ SCH ×2 (13:17→20:13)
[2021-12-18 13:57] LABS: Adenovirus Not Detected (Not Detect); Bordetella Pertussis Not Detected (Not Detect); Chlamydophila pneumoniae Not Detected (Not Detect); Coronavirus 229E Not Detected (Not Detect); Coronavirus HKU1 Not Detected (Not Detect); Coronavirus NL63 Not Detected (Not Detect); Coronavirus OC43 Not Detected (Not Detect); Human Metapneumovirus Not Detected (Not Detect); Human Rhinovirus/Enterovirus DETECTED (Not Detect); Influenza A Subtype 2009 H1 Not Detected (Not Detect); Influenza B Not Detected (Not Detect); Mycoplasma pneumoniae Not Detected (Not Detect); Parainfluenza Virus 1 Not Detected (Not Detect); Parainfluenza Virus 2 Not Detected (Not Detect); Parainfluenza Virus 3 Not Detected (Not Detect); Parainfluenza Virus 4 Not Detected (Not Detect); Respiratory Syncytial Virus Not Detected (Not Detect); SARS-CoV-2 Not Detected (Not Detect)
[2021-12-18] MEDS: Levalbuterol Neb 1.25 MG/3 ML IH SCH ×2 (15:39→22:02)
[2021-12-18] MEDS ORDERED: MethylPREDNISolone 40 MG/ML VIAL IVP SCH (16:00)
[2021-12-18] MEDS ORDERED: Ipratropium/Albuterol Neb 3 ML IH SCH (17:00)
[2021-12-18] MEDS: Insulin LISPRO 300 UNITS/3 ML VIAL SUBQ SCH (17:03)
[2021-12-18] MEDS: MethylPREDNISolone 40 MG/ML VIAL IVP SCH (17:05)
[2021-12-18] MEDS: Famotidine 20 MG TABLET PO SCH (20:12)
[2021-12-18] MEDS ORDERED: Insulin LISPRO 300 UNITS/3 ML VIAL SUBQ SCH (21:00)
[2021-12-18] MEDS: Budesonide/Formoterol 160/4.5 1 PUFF INH IH SCH (22:02)
[2021-12-18] MEDS: Insulin DETEMIR 100 UNIT/ML X5UNITS SUBQ SCH (22:18)
[2021-12-18] MEDS: CYCLOSPORINE 0.05% OP SCH (22:50)
[2021-12-18] MEDS: Latanoprost 2.5 ML BOTTLE BOTH EYES SCH (22:50)
[2021-12-19] MEDS: MethylPREDNISolone 40 MG/ML VIAL IVP SCH ×3 (01:02→21:09)
[2021-12-19] MEDS: Levalbuterol Neb 1.25 MG/3 ML IH SCH ×4 (03:33→22:50)
[2021-12-19] MEDS: *HR* Heparin 5,000 UNIT/ML VIAL SQ SCH ×3 (05:31→21:09)
[2021-12-19 05:50] LABS: Basophils % 0.1 %; Hematocrit 40.3 % (35.3-44.9); Hemoglobin 12.3 g/dL (11.5-15.4); Immature Granulocytes % 0.9 % (0-4); Lymphocytes # 0.5 K/mcL (0.6-4.6); Lymphocytes % 4.9 %; Mean Corpuscular HGB Conc 30.5 g/dL (31.6-35.5); Mean Corpuscular Hemoglobin 25.8 pg (28.0-33.3); Mean Corpuscular Volume 84.7 fL (83.0-100.0); Mean Platelet Volume 9.8 fL (9.4-12.4); Monocytes # 0.1 K/mcL (0.0-1.3); Monocytes % 1.3 %; Neutrophils # 9.8 K/mcL (1.6-8.9); Platelet Count 245 K/mcL (140-400); Red Blood Count 4.76 M/mcL (3.82-4.97); Red Cell Distribution Width 14.8 % (11.5-14.5); Segmented Neutrophils % 92.8 %; White Blood Count 10.5 K/mcL (4.3-11.1)
[2021-12-19 06:13] LABS: BUN/Creatinine Ratio 34 (6-26); Blood Urea Nitrogen 21 mg/dL (8-23); Calcium 9.1 mg/dL (8.6-10.3); Carbon Dioxide 30 mEq/L (23-29); Chloride 99 mEq/L (98-107); Glucose 255 mg/dL (70-105); Magnesium 2.2 mg/dL (1.6-2.6); Osmolality,Calculated 296 (280-300); Potassium 4.3 mEq/L (3.5-5.1); Sodium 137 mEq/L (136-145); eGFR For African Americans > 60 (> 60); eGFR For Non-African Americans > 60 (> 60)
[2021-12-19] MEDS: Aspirin Enteric Coated 81 MG Tablet PO SCH (08:29)
[2021-12-19] MEDS: Cyanocobalamin (B-12) 1,000 MCG TABLET PO SCH (08:30)
[2021-12-19] MEDS: levoFLOXacin 500 MG TABLET PO SCH (08:30)
[2021-12-19] MEDS: CYCLOSPORINE 0.05% OP SCH ×2 (08:32→22:29)
[2021-12-19] MEDS: Insulin DETEMIR 100 UNIT/ML X5UNITS SUBQ SCH (08:35)
[2021-12-19] MEDS: Budesonide/Formoterol 160/4.5 1 PUFF INH IH SCH ×2 (09:43→22:51)
[2021-12-19] MEDS: Tiotropium 10 INH DOSE IH SCH (09:46)
[2021-12-19] MEDS: Insulin LISPRO 300 UNITS/3 ML VIAL SUBQ SCH ×4 (11:05→21:11)
[2021-12-19] MEDS ORDERED: Insulin DETEMIR 100 UNIT/ML X5UNITS SUBQ SCH (21:00)
[2021-12-19] MEDS: Famotidine 20 MG TABLET PO SCH (21:10)
[2021-12-19] MEDS: Latanoprost 2.5 ML BOTTLE BOTH EYES SCH (21:11)
[2021-12-20] MEDS: Levalbuterol Neb 1.25 MG/3 ML IH SCH ×4 (04:09→20:07)
[2021-12-20 05:48] LABS: Hematocrit 37.5 % (35.3-44.9); Hemoglobin 11.7 g/dL (11.5-15.4); Mean Corpuscular HGB Conc 31.2 g/dL (31.6-35.5); Mean Corpuscular Hemoglobin 26.4 pg (28.0-33.3); Mean Corpuscular Volume 84.5 fL (83.0-100.0); Platelet Count 250 K/mcL (140-400); Red Blood Count 4.44 M/mcL (3.82-4.97); Red Cell Distribution Width 15.2 % (11.5-14.5); White Blood Count 15.1 K/mcL (4.3-11.1)
[2021-12-20] MEDS: *HR* Heparin 5,000 UNIT/ML VIAL SQ SCH ×3 (05:53→20:17)
[2021-12-20 06:04] LABS: BUN/Creatinine Ratio 40 (6-26); Blood Urea Nitrogen 25 mg/dL (8-23); Calcium 9.1 mg/dL (8.6-10.3); Carbon Dioxide 27 mEq/L (23-29); Chloride 101 mEq/L (98-107); Glucose 267 mg/dL (70-105); Magnesium 2.2 mg/dL (1.6-2.6); Osmolality,Calculated 304 (280-300); Potassium 4.3 mEq/L (3.5-5.1); Sodium 140 mEq/L (136-145); eGFR For African Americans > 60 (> 60); eGFR For Non-African Americans > 60 (> 60)
[2021-12-20] MEDS: Insulin LISPRO 300 UNITS/3 ML VIAL SUBQ SCH ×4 (09:37→20:26)
[2021-12-20] MEDS: levoFLOXacin 500 MG TABLET PO SCH (09:38)
[2021-12-20] MEDS: CYCLOSPORINE 0.05% OP SCH ×2 (09:38→20:19)
[2021-12-20] MEDS: Cyanocobalamin (B-12) 1,000 MCG TABLET PO SCH (09:38)
[2021-12-20] MEDS: Aspirin Enteric Coated 81 MG Tablet PO SCH (09:38)
[2021-12-20] MEDS: Insulin DETEMIR 100 UNIT/ML X5UNITS SUBQ SCH ×2 (09:39→20:26)
[2021-12-20] MEDS: MethylPREDNISolone 40 MG/ML VIAL IVP SCH ×2 (09:39→20:18)
[2021-12-20] MEDS: Budesonide/Formoterol 160/4.5 1 PUFF INH IH SCH ×2 (10:32→20:07)
[2021-12-20] MEDS: Tiotropium 10 INH DOSE IH SCH (10:32)
[2021-12-20 14:29] LABS: Estimated Average Glucose 246 mg/dl; Hemoglobin A1C 10.2 %
[2021-12-20] MEDS: Famotidine 20 MG TABLET PO SCH (20:17)
[2021-12-20] MEDS: Latanoprost 2.5 ML BOTTLE BOTH EYES SCH (20:19)
[2021-12-21 02:39] LABS: Hematocrit 38.6 % (35.3-44.9); Hemoglobin 11.8 g/dL (11.5-15.4); Mean Corpuscular HGB Conc 30.6 g/dL (31.6-35.5); Mean Corpuscular Hemoglobin 26.4 pg (28.0-33.3); Mean Corpuscular Volume 86.4 fL (83.0-100.0); Mean Platelet Volume 10.5 fL (9.4-12.4); Platelet Count 242 K/mcL (140-400); Red Blood Count 4.47 M/mcL (3.82-4.97); Red Cell Distribution Width 15.4 % (11.5-14.5)
[2021-12-21 02:59] LABS: Blood Urea Nitrogen 31 mg/dL (8-23); Calcium 9.7 mg/dL (8.6-10.3); Carbon Dioxide 29 mEq/L (23-29); Chloride 99 mEq/L (98-107); Glucose 401 mg/dL (70-105); Magnesium 2.1 mg/dL (1.6-2.6); Osmolality,Calculated 307 (280-300); Potassium 4.7 mEq/L (3.5-5.1); Sodium 137 mEq/L (136-145)
[2021-12-21] MEDS: Levalbuterol Neb 1.25 MG/3 ML IH SCH ×2 (03:12→07:23)
[2021-12-21 03:16] LABS: BUN/Creatinine Ratio 40 (6-26); eGFR For African Americans > 60 (> 60); eGFR For Non-African Americans > 60 (> 60)
[2021-12-21] MEDS: Budesonide/Formoterol 160/4.5 1 PUFF INH IH SCH (03:43)
[2021-12-21] MEDS: *HR* Heparin 5,000 UNIT/ML VIAL SQ SCH (06:26)
[2021-12-21] MEDS: Tiotropium 10 INH DOSE IH SCH (07:23)
[2021-12-21 07:25] VITALS: O2SAT 100
[2021-12-21 07:26] VITALS: BP 136/72; PULSE 100; TEMP 97.8
[2021-12-21] MEDS: Aspirin Enteric Coated 81 MG Tablet PO SCH (08:57)
[2021-12-21] MEDS: CYCLOSPORINE 0.05% OP SCH (08:57)
[2021-12-21] MEDS: Insulin DETEMIR 100 UNIT/ML X5UNITS SUBQ SCH (08:57)
[2021-12-21] MEDS: levoFLOXacin 500 MG TABLET PO SCH (08:57)
[2021-12-21] MEDS: MethylPREDNISolone 40 MG/ML VIAL IVP SCH (08:58)
[2021-12-21] MEDS: Insulin LISPRO 300 UNITS/3 ML VIAL SUBQ SCH ×2 (08:58→13:00)
[2021-12-21] MEDS: Cyanocobalamin (B-12) 1,000 MCG TABLET PO SCH (08:59)
== END 2021-12-21 14:11 | disposition home or self-care (01) | DRG 190 ==
LOC: EMEROOARM 09:37 → 3NENU 09:37 → SUATTDRO 11:40 → 3NENU 12:40
PROVIDERS: ADMIT Internal Medicine; ATTEND Internal Medicine

== ENCOUNTER 2022-02-11 07:19 | Inpatient (IN) ==
[2022-02-11] MEDS ORDERED: methylPREDNISolone 125 MG/2 ML VIAL IVP ONE (07:33)
[2022-02-11] MEDS ORDERED: Ipratropium/Albuterol Neb 3 ML IH ONE (07:33)
[2022-02-11 08:10] LABS: ABG Base Excess 4 mEq/L (-2 to 3); ABG HCO3 32 mEq/L (21-27); ABG Oxygen Saturation 99 % (95-98); ABG PCO2 66 mmHg (35-45); ABG PO2 170 mmHg (85-104); ABG TCO2 34 mEq/L (20-26)
[2022-02-11 08:42] LABS: Basophils # 0.1 K/mcL (0.0-0.2); Basophils % 0.7 %; Eosinophils # 0.6 K/mcL (0.0-0.6); Hematocrit 43.5 % (35.3-44.9); Hemoglobin 12.7 g/dL (11.5-15.4); Immature Granulocytes % 0.9 % (0-4); Lymphocytes # 1.5 K/mcL (0.6-4.6); Lymphocytes % 17.4 %; Mean Corpuscular HGB Conc 29.2 g/dL (31.6-35.5); Mean Corpuscular Volume 85.5 fL (83.0-100.0); Mean Platelet Volume 9.4 fL (9.4-12.4); Monocytes # 0.7 K/mcL (0.0-1.3); Neutrophils # 5.8 K/mcL (1.6-8.9); Platelet Count 258 K/mcL (140-400); Red Blood Count 5.09 M/mcL (3.82-4.97); Red Cell Distribution Width 15.4 % (11.5-14.5); White Blood Count 8.8 K/mcL (4.3-11.1)
[2022-02-11 09:03] LABS: BUN/Creatinine Ratio 28 (6-26); Blood Urea Nitrogen 15 mg/dL (8-23); Calcium 9.2 mg/dL (8.6-10.3); Carbon Dioxide 31 mEq/L (23-29); Chloride 101 mEq/L (98-107); Glucose 144 mg/dL (70-105); Osmolality,Calculated 295 (280-300); Potassium 3.8 mEq/L (3.5-5.1); Sodium 141 mEq/L (136-145); eGFR For African Americans > 60 (> 60); eGFR For Non-African Americans > 60 (> 60)
[2022-02-11 09:04] LABS: Troponin I < 0.03 ng/mL (< 0.04)
[2022-02-11] MEDS ORDERED: 0.9 % Sodium Chloride 1,000 ML IV ONE (10:10)
[2022-02-11] MEDS ORDERED: Albuterol 2.5 MG/3 ML NEBULIZER IH ONE (10:11)
[2022-02-11] MEDS ORDERED: Naloxone 0.4 MG/ML INJ IVP PRN (10:39)
[2022-02-11] MEDS ORDERED: Dextrose Gel 15 GM/37.5 ML TUBE PO PRN ×2 (10:50)
[2022-02-11] MEDS ORDERED: D5% in Water 1,000 ML IVC PRN (10:50)
[2022-02-11] MEDS ORDERED: *HR* Dextrose 50 % in Water (Syg) 50 ML SYRINGE IVP PRN (10:50)
[2022-02-11] MEDS ORDERED: Albuterol 2.5 MG/3 ML NEBULIZER IH PRN (11:40)
[2022-02-11] MEDS ORDERED: Ipratropium/Albuterol Neb 3 ML ONE (11:50)
[2022-02-11] MEDS: Ipratropium/Albuterol Neb 3 ML IH SCH ×4 (11:53→23:09)
[2022-02-11] MEDS: Insulin LISPRO 300 UNITS/3 ML VIAL SUBQ SCH ×3 (12:27→21:00)
[2022-02-11] MEDS: Azithromycin 250 MG TABLET PO SCH (20:29)
[2022-02-11] MEDS: Melatonin 3 MG TABLET PO PRN (20:29)
[2022-02-11] MEDS: Insulin DETEMIR 100 UNIT/ML X5UNITS SUBQ SCH (23:53)
[2022-02-12 02:40] LABS: Basophils % 0.1 %; Hematocrit 35.4 % (35.3-44.9); Immature Granulocytes % 0.7 % (0-4); Lymphocytes # 0.5 K/mcL (0.6-4.6); Lymphocytes % 4.5 %; Mean Corpuscular HGB Conc 29.9 g/dL (31.6-35.5); Mean Corpuscular Hemoglobin 24.8 pg (28.0-33.3); Mean Corpuscular Volume 82.7 fL (83.0-100.0); Mean Platelet Volume 9.3 fL (9.4-12.4); Monocytes # 0.3 K/mcL (0.0-1.3); Monocytes % 2.7 %; Neutrophils # 9.6 K/mcL (1.6-8.9); Platelet Count 244 K/mcL (140-400); Red Blood Count 4.28 M/mcL (3.82-4.97); Red Cell Distribution Width 15.2 % (11.5-14.5); White Blood Count 10.4 K/mcL (4.3-11.1)
[2022-02-12 02:41] LABS: Hemoglobin 10.6 g/dL (11.5-15.4)
[2022-02-12 02:52] LABS: BUN/Creatinine Ratio 36 (6-26); Blood Urea Nitrogen 20 mg/dL (8-23); Calcium 9.4 mg/dL (8.6-10.3); Carbon Dioxide 30 mEq/L (23-29); Chloride 101 mEq/L (98-107); Glucose 306 mg/dL (70-105); Osmolality,Calculated 298 (280-300); Potassium 4.3 mEq/L (3.5-5.1); Sodium 137 mEq/L (136-145); eGFR For African Americans > 60 (> 60); eGFR For Non-African Americans > 60 (> 60)
[2022-02-12] MEDS: Ipratropium/Albuterol Neb 3 ML IH SCH ×6 (04:24→23:19)
[2022-02-12] MEDS: *HR* Heparin 5,000 UNIT/ML VIAL SQ SCH ×2 (06:21→16:52)
[2022-02-12] MEDS: Insulin LISPRO 300 UNITS/3 ML VIAL SUBQ SCH ×4 (08:16→22:37)
[2022-02-12] MEDS: Insulin DETEMIR 100 UNIT/ML X5UNITS SUBQ SCH ×2 (08:17→22:36)
[2022-02-12] MEDS ORDERED: predniSONE 20 MG TABLET PO SCH (09:00)
[2022-02-12] MEDS: MethylPREDNISolone 40 MG/ML VIAL IVP SCH (15:46)
[2022-02-12] MEDS: Azithromycin 250 MG TABLET PO SCH (19:57)
[2022-02-12] MEDS ORDERED: Saline Nasal Spray 44 ML BOTTLE NS PRN (21:26)
[2022-02-13] MEDS: MethylPREDNISolone 40 MG/ML VIAL IVP SCH ×4 (00:42→23:37)
[2022-02-13] MEDS ORDERED: *HR* LORazepam 1 MG TABLET PO ONE (01:11)
[2022-02-13 02:52] LABS: Basophils % 0.1 %; Hematocrit 35.6 % (35.3-44.9); Immature Granulocytes % 0.7 % (0-4); Lymphocytes # 0.4 K/mcL (0.6-4.6); Mean Corpuscular HGB Conc 30.9 g/dL (31.6-35.5); Mean Corpuscular Hemoglobin 25.5 pg (28.0-33.3); Mean Corpuscular Volume 82.6 fL (83.0-100.0); Mean Platelet Volume 9.9 fL (9.4-12.4); Monocytes # 0.2 K/mcL (0.0-1.3); Monocytes % 1.4 %; Neutrophils # 12.8 K/mcL (1.6-8.9); Platelet Count 284 K/mcL (140-400); Red Blood Count 4.31 M/mcL (3.82-4.97); Red Cell Distribution Width 15.1 % (11.5-14.5); Segmented Neutrophils % 94.8 %; White Blood Count 13.5 K/mcL (4.3-11.1)
[2022-02-13 03:22] LABS: BUN/Creatinine Ratio 43 (6-26); Blood Urea Nitrogen 26 mg/dL (8-23); Calcium 9.3 mg/dL (8.6-10.3); Carbon Dioxide 27 mEq/L (23-29); Chloride 100 mEq/L (98-107); Glucose 354 mg/dL (70-105); Osmolality,Calculated 297 (280-300); Sodium 134 mEq/L (136-145); eGFR For African Americans > 60 (> 60); eGFR For Non-African Americans > 60 (> 60)
[2022-02-13] MEDS: Ipratropium/Albuterol Neb 3 ML IH SCH ×6 (03:31→23:04)
[2022-02-13] MEDS: Insulin LISPRO 300 UNITS/3 ML VIAL SUBQ SCH ×5 (05:49→20:46)
[2022-02-13] MEDS: *HR* Heparin 5,000 UNIT/ML VIAL SQ SCH ×2 (06:04→18:51)
[2022-02-13] MEDS: Insulin DETEMIR 100 UNIT/ML X5UNITS SUBQ SCH ×2 (09:47→22:06)
[2022-02-13] MEDS: Azithromycin 250 MG TABLET PO SCH (18:51)
[2022-02-14] MEDS: Ipratropium/Albuterol Neb 3 ML IH SCH ×6 (04:04→23:03)
[2022-02-14 05:46] LABS: Basophils % 0.1 %; Hematocrit 36.9 % (35.3-44.9); Immature Granulocytes % 0.9 % (0-4); Lymphocytes # 0.5 K/mcL (0.6-4.6); Lymphocytes % 3.3 %; Mean Corpuscular HGB Conc 29.8 g/dL (31.6-35.5); Mean Corpuscular Hemoglobin 24.8 pg (28.0-33.3); Mean Corpuscular Volume 83.1 fL (83.0-100.0); Mean Platelet Volume 9.8 fL (9.4-12.4); Monocytes # 0.3 K/mcL (0.0-1.3); Neutrophils # 14.3 K/mcL (1.6-8.9); Platelet Count 272 K/mcL (140-400); Red Blood Count 4.44 M/mcL (3.82-4.97); Red Cell Distribution Width 15.2 % (11.5-14.5); Segmented Neutrophils % 93.7 %; White Blood Count 15.2 K/mcL (4.3-11.1)
[2022-02-14] MEDS: *HR* Heparin 5,000 UNIT/ML VIAL SQ SCH ×2 (05:53→17:02)
[2022-02-14 06:12] LABS: BUN/Creatinine Ratio 35 (6-26); Blood Urea Nitrogen 21 mg/dL (8-23); Calcium 9.3 mg/dL (8.6-10.3); Carbon Dioxide 30 mEq/L (23-29); Chloride 102 mEq/L (98-107); Glucose 261 mg/dL (70-105); Osmolality,Calculated 302 (280-300); Potassium 4.4 mEq/L (3.5-5.1); Sodium 140 mEq/L (136-145); eGFR For African Americans > 60 (> 60); eGFR For Non-African Americans > 60 (> 60)
[2022-02-14] MEDS: MethylPREDNISolone 40 MG/ML VIAL IVP SCH ×3 (08:12→23:29)
[2022-02-14] MEDS: Insulin LISPRO 300 UNITS/3 ML VIAL SUBQ SCH ×4 (08:12→21:46)
[2022-02-14] MEDS: Insulin DETEMIR 100 UNIT/ML X5UNITS SUBQ SCH ×2 (08:50→21:47)
[2022-02-14] MEDS: Azithromycin 250 MG TABLET PO SCH (17:52)
[2022-02-15] MEDS: Ipratropium/Albuterol Neb 3 ML IH SCH ×6 (03:57→23:59)
[2022-02-15 04:23] LABS: Basophils % 0.1 %; Hemoglobin 11.4 g/dL (11.5-15.4); Immature Granulocytes % 1.4 % (0-4); Lymphocytes # 0.4 K/mcL (0.6-4.6); Lymphocytes % 2.7 %; Mean Corpuscular Hemoglobin 24.8 pg (28.0-33.3); Mean Corpuscular Volume 82.8 fL (83.0-100.0); Mean Platelet Volume 10.3 fL (9.4-12.4); Monocytes # 0.3 K/mcL (0.0-1.3); Monocytes % 2.1 %; Neutrophils # 14.4 K/mcL (1.6-8.9); Platelet Count 288 K/mcL (140-400); Red Blood Count 4.59 M/mcL (3.82-4.97); Red Cell Distribution Width 15.3 % (11.5-14.5); Segmented Neutrophils % 93.7 %; White Blood Count 15.4 K/mcL (4.3-11.1)
[2022-02-15 04:46] LABS: BUN/Creatinine Ratio 45 (6-26); Blood Urea Nitrogen 24 mg/dL (8-23); Calcium 9.5 mg/dL (8.6-10.3); Carbon Dioxide 30 mEq/L (23-29); Chloride 99 mEq/L (98-107); Glucose 278 mg/dL (70-105); Magnesium 2.2 mg/dL (1.6-2.6); Osmolality,Calculated 298 (280-300); Phosphorous 4.1 mg/dL (2.7-4.5); Potassium 4.4 mEq/L (3.5-5.1); Sodium 137 mEq/L (136-145); eGFR For African Americans > 60 (> 60); eGFR For Non-African Americans > 60 (> 60)
[2022-02-15] MEDS: *HR* Heparin 5,000 UNIT/ML VIAL SQ SCH ×2 (05:07→17:29)
[2022-02-15] MEDS: MethylPREDNISolone 40 MG/ML VIAL IVP SCH ×2 (07:40→17:29)
[2022-02-15] MEDS: Insulin LISPRO 300 UNITS/3 ML VIAL SUBQ SCH ×4 (07:44→20:43)
[2022-02-15] MEDS: Insulin DETEMIR 100 UNIT/ML X5UNITS SUBQ SCH ×2 (07:44→20:43)
[2022-02-15] MEDS: Azithromycin 250 MG TABLET PO SCH (17:29)
[2022-02-15] MEDS: Melatonin 3 MG TABLET PO PRN (20:43)
[2022-02-16] MEDS: MethylPREDNISolone 40 MG/ML VIAL IVP SCH (00:23)
[2022-02-16] MEDS: Ipratropium/Albuterol Neb 3 ML IH SCH ×4 (04:27→14:49)
[2022-02-16] MEDS: *HR* Heparin 5,000 UNIT/ML VIAL SQ SCH (05:14)
[2022-02-16 05:42] LABS: Basophils % 0.3 %; Hemoglobin 11.1 g/dL (11.5-15.4); Immature Granulocytes % 2.3 % (0-4); Lymphocytes # 0.4 K/mcL (0.6-4.6); Lymphocytes % 3.4 %; Mean Corpuscular Hemoglobin 24.7 pg (28.0-33.3); Mean Corpuscular Volume 82.2 fL (83.0-100.0); Mean Platelet Volume 9.6 fL (9.4-12.4); Monocytes # 0.3 K/mcL (0.0-1.3); Monocytes % 2.6 %; Neutrophils # 10.9 K/mcL (1.6-8.9); Nucleated Red Blood Cells 0.2 /100 WBC (0); Platelet Count 250 K/mcL (140-400); Red Cell Distribution Width 15.3 % (11.5-14.5); Segmented Neutrophils % 91.4 %
[2022-02-16 05:58] LABS: BUN/Creatinine Ratio 53 (6-26); Blood Urea Nitrogen 29 mg/dL (8-23); Calcium 9.2 mg/dL (8.6-10.3); Carbon Dioxide 32 mEq/L (23-29); Chloride 100 mEq/L (98-107); Glucose 340 mg/dL (70-105); Magnesium 2.2 mg/dL (1.6-2.6); Osmolality,Calculated 309 (280-300); Phosphorous 4.3 mg/dL (2.7-4.5); Potassium 4.1 mEq/L (3.5-5.1); Sodium 140 mEq/L (136-145); eGFR For African Americans > 60 (> 60); eGFR For Non-African Americans > 60 (> 60)
[2022-02-16] MEDS: Insulin LISPRO 300 UNITS/3 ML VIAL SUBQ SCH ×2 (08:32→12:17)
[2022-02-16] MEDS ORDERED: dexAMETHasone 4 MG TABLET PO SCH (09:00)
[2022-02-16] MEDS ORDERED: Insulin DETEMIR 100 UNIT/ML X5UNITS SUBQ SCH (09:00)
[2022-02-16 11:24] VITALS: BP 146/81; PULSE 102; TEMP 97.2
[2022-02-16 14:49] VITALS: O2SAT 97
== END 2022-02-16 14:55 | disposition home health service (06) | DRG 189 ==
LOC: EMEROOARM 07:19 → 3NENU 07:19 → SUATTDRO 02-12 17:13
PROVIDERS: ADMIT Internal Medicine; ATTEND Pharmacist

== ENCOUNTER 2022-04-01 03:57 | Inpatient (IN) ==
[2022-04-01] MEDS ORDERED: Ipratropium/Albuterol Neb 3 ML IH ONE (04:39)
[2022-04-01 05:34] LABS: Basophils # 0.1 K/mcL (0.0-0.2); Basophils % 0.5 %; Eosinophils # 0.5 K/mcL (0.0-0.6); Eosinophils % 4.4 %; Hematocrit 43.3 % (35.3-44.9); Hemoglobin 12.6 g/dL (11.5-15.4); Immature Granulocytes % 0.7 % (0-4); Lymphocytes # 1.6 K/mcL (0.6-4.6); Lymphocytes % 14.4 %; Mean Corpuscular HGB Conc 29.1 g/dL (31.6-35.5); Mean Corpuscular Volume 82.6 fL (83.0-100.0); Mean Platelet Volume 9.8 fL (9.4-12.4); Monocytes # 0.8 K/mcL (0.0-1.3); Monocytes % 7.2 %; Neutrophils # 8.1 K/mcL (1.6-8.9); Platelet Count 281 K/mcL (140-400); Red Blood Count 5.24 M/mcL (3.82-4.97); Red Cell Distribution Width 16.6 % (11.5-14.5); Segmented Neutrophils % 72.8 %; White Blood Count 11.1 K/mcL (4.3-11.1)
[2022-04-01 05:43] LABS: Influenza A PCR Negative (Negative); Influenza B PCR Negative (Negative); Resp. Syncytial Virus PCR Negative (Negative)
[2022-04-01 05:48] LABS: SARS-CoV-2 by PCR (In House) Negative (Negative)
[2022-04-01 05:58] LABS: VBG HCO3 34 mEq/L (21-27); VBG PCO2 75 mmHg (41-51); VBG PH 7.26 pH Units (7.32-7.42); VBG PO2 49 mmHg (25-50)
[2022-04-01] MEDS ORDERED: methylPREDNISolone 125 MG/2 ML VIAL IVP ONE (06:01)
[2022-04-01 06:14] LABS: VBG HCO3 33 mEq/L (21-27); VBG PCO2 64 mmHg (41-51); VBG PH 7.31 pH Units (7.32-7.42); VBG PO2 75 mmHg (25-50)
[2022-04-01] MEDS ORDERED: 0.9 % Sodium Chloride 500 ML IVC ONE (06:32)
[2022-04-01 06:37] LABS: BUN/Creatinine Ratio 44 (6-26); Blood Urea Nitrogen 26 mg/dL (8-23); Calcium 9.4 mg/dL (8.6-10.3); Carbon Dioxide 34 mEq/L (23-29); Chloride 97 mEq/L (98-107); Glucose 187 mg/dL (70-105); Osmolality,Calculated 300 (280-300); Potassium 3.4 mEq/L (3.5-5.1); Sodium 140 mEq/L (136-145); Troponin I < 0.03 ng/mL (< 0.04)
[2022-04-01] MEDS ORDERED: Ipratropium/Albuterol Neb 3 ML IH PRN (07:29)
[2022-04-01] MEDS ORDERED: Ondansetron 4 MG/2 ML VIAL IVP PRN (07:34)
[2022-04-01] MEDS ORDERED: Acetaminophen 325 MG TABLET PO PRN (07:34)
[2022-04-01] MEDS ORDERED: Dextrose Gel 15 GM/37.5 ML TUBE PO PRN ×2 (07:35)
[2022-04-01] MEDS ORDERED: D5% in Water 1,000 ML IVC PRN (07:35)
[2022-04-01] MEDS ORDERED: *HR* Dextrose 50 % in Water (Syg) 50 ML SYRINGE IVP PRN (07:35)
[2022-04-01] MEDS: Budesonide/Formoterol 160/4.5 1 PUFF INH IH SCH ×2 (09:17→20:08)
[2022-04-01] MEDS: Ipratropium/Albuterol Neb 3 ML IH SCH ×5 (09:17→23:44)
[2022-04-01] MEDS: predniSONE 20 MG TABLET PO SCH (10:45)
[2022-04-01] MEDS: Aspirin Enteric Coated 81 MG Tablet PO SCH (10:46)
[2022-04-01] MEDS: Insulin DETEMIR 100 UNIT/ML X5UNITS SUBQ SCH ×2 (10:46→20:09)
[2022-04-01] MEDS: Azithromycin 250 MG TABLET PO SCH (10:46)
[2022-04-01] MEDS: Insulin LISPRO 300 UNITS/3 ML VIAL SUBQ SCH ×2 (10:47→16:58)
[2022-04-01] MEDS: Famotidine 20 MG TABLET PO SCH (20:11)
[2022-04-01] MEDS: Latanoprost 2.5 ML BOTTLE BOTH EYES SCH (20:23)
[2022-04-01] MEDS ORDERED: Melatonin 3 MG TABLET PO PRN (21:00)
[2022-04-01] MEDS ORDERED: Insulin LISPRO 300 UNITS/3 ML VIAL SUBQ SCH (21:00)
[2022-04-02] MEDS: Ipratropium/Albuterol Neb 3 ML IH SCH ×6 (04:07→23:11)
[2022-04-02] MEDS: *HR* Enoxaparin 40 MG/0.4 ML SYRINGE SQ SCH (05:39)
[2022-04-02] MEDS: Budesonide/Formoterol 160/4.5 1 PUFF INH IH SCH ×2 (07:40→20:16)
[2022-04-02] MEDS: Azithromycin 250 MG TABLET PO SCH (08:19)
[2022-04-02] MEDS: Aspirin Enteric Coated 81 MG Tablet PO SCH (08:19)
[2022-04-02] MEDS: predniSONE 20 MG TABLET PO SCH (08:19)
[2022-04-02] MEDS: Insulin LISPRO 300 UNITS/3 ML VIAL SUBQ SCH ×3 (08:20→17:26)
[2022-04-02] MEDS: Insulin DETEMIR 100 UNIT/ML X5UNITS SUBQ SCH ×2 (08:28→22:12)
[2022-04-02] MEDS ORDERED: Insulin LISPRO 300 UNITS/3 ML VIAL SUBQ SCH (14:17)
[2022-04-02] MEDS ORDERED: Saline Nasal Spray 44 ML BOTTLE NS PRN (21:54)
[2022-04-02] MEDS: Famotidine 20 MG TABLET PO SCH (22:05)
[2022-04-02] MEDS: Latanoprost 2.5 ML BOTTLE BOTH EYES SCH (22:06)
[2022-04-03] MEDS: Ipratropium/Albuterol Neb 3 ML IH SCH ×3 (03:57→11:07)
[2022-04-03] MEDS: *HR* Enoxaparin 40 MG/0.4 ML SYRINGE SQ SCH (06:21)
[2022-04-03] MEDS: Budesonide/Formoterol 160/4.5 1 PUFF INH IH SCH (07:22)
[2022-04-03] MEDS ORDERED: predniSONE 20 MG TABLET PO SCH (09:00)
[2022-04-03] MEDS: Azithromycin 250 MG TABLET PO SCH (09:06)
[2022-04-03] MEDS: Insulin LISPRO 300 UNITS/3 ML VIAL SUBQ SCH ×2 (09:07→12:18)
[2022-04-03] MEDS: Aspirin Enteric Coated 81 MG Tablet PO SCH (09:09)
[2022-04-03] MEDS: Insulin DETEMIR 100 UNIT/ML X5UNITS SUBQ SCH (09:09)
[2022-04-03 11:51] VITALS: BP 126/51; PULSE 101; TEMP 97.7; O2SAT 98
== END 2022-04-03 12:49 | disposition home or self-care (01) | DRG 191 ==
LOC: 2NENU 03:57 → EMEROOARM 03:57 → SUATTDRO 06:48 → 2NENU 08:28
PROVIDERS: ADMIT Internal Medicine; ATTEND Internal Medicine

== ENCOUNTER 2022-05-14 23:16 | Inpatient (IN) ==
[2022-05-15] MEDS ORDERED: Iopamidol - 370 500 ML MLS IVP ONE (00:31)
[2022-05-15] MEDS ORDERED: Ipratropium/Albuterol Neb 3 ML IH ONE (00:31)
[2022-05-15 01:44] LABS: Basophils % 0.1 %; Hematocrit 37.7 % (35.3-44.9); Hemoglobin 11.1 g/dL (11.5-15.4); Immature Granulocytes % 0.7 % (0-4); Lymphocytes # 0.4 K/mcL (0.6-4.6); Lymphocytes % 2.1 %; Mean Corpuscular HGB Conc 29.4 g/dL (31.6-35.5); Mean Corpuscular Hemoglobin 23.4 pg (28.0-33.3); Mean Corpuscular Volume 79.5 fL (83.0-100.0); Mean Platelet Volume 9.3 fL (9.4-12.4); Monocytes # 0.5 K/mcL (0.0-1.3); Monocytes % 2.9 %; Neutrophils # 15.5 K/mcL (1.6-8.9); Platelet Count 245 K/mcL (140-400); Red Blood Count 4.74 M/mcL (3.82-4.97); Red Cell Distribution Width 18.4 % (11.5-14.5); Segmented Neutrophils % 94.2 %; White Blood Count 16.5 K/mcL (4.3-11.1)
[2022-05-15 02:02] LABS: BUN/Creatinine Ratio 34 (6-26); Blood Urea Nitrogen 21 mg/dL (8-23); Calcium 9.3 mg/dL (8.6-10.3); Carbon Dioxide 30 mEq/L (23-29); Chloride 102 mEq/L (98-107); Glucose 314 mg/dL (70-105); Osmolality,Calculated 303 (280-300); Potassium 4.3 mEq/L (3.5-5.1); Sodium 139 mEq/L (136-145); Troponin I < 0.03 ng/mL (< 0.04)
[2022-05-15] MEDS ORDERED: Ondansetron 4 MG/2 ML VIAL IVP PRN (02:28)
[2022-05-15] MEDS ORDERED: Naloxone 0.4 MG/ML INJ IVP PRN (02:28)
[2022-05-15] MEDS ORDERED: Acetaminophen 325 MG TABLET PO PRN (02:28)
[2022-05-15] MEDS ORDERED: Dextrose Gel 15 GM/37.5 ML TUBE PO PRN ×2 (03:26)
[2022-05-15] MEDS ORDERED: D5% in Water 1,000 ML IVC PRN (03:26)
[2022-05-15] MEDS ORDERED: *HR* Dextrose 50 % in Water (Syg) 50 ML SYRINGE IVP PRN (03:26)
[2022-05-15 04:23] LABS: Adenovirus Not Detected (Not Detect); Bordetella Pertussis Not Detected (Not Detect); Chlamydophila pneumoniae Not Detected (Not Detect); Coronavirus 229E Not Detected (Not Detect); Coronavirus HKU1 Not Detected (Not Detect); Coronavirus NL63 Not Detected (Not Detect); Coronavirus OC43 Not Detected (Not Detect); Human Metapneumovirus Not Detected (Not Detect); Human Rhinovirus/Enterovirus DETECTED (Not Detect); Influenza A Subtype 2009 H1 Not Detected (Not Detect); Influenza B Not Detected (Not Detect); Mycoplasma pneumoniae Not Detected (Not Detect); Parainfluenza Virus 1 Not Detected (Not Detect); Parainfluenza Virus 2 Not Detected (Not Detect); Parainfluenza Virus 3 Not Detected (Not Detect); Parainfluenza Virus 4 Not Detected (Not Detect); Respiratory Syncytial Virus Not Detected (Not Detect); SARS-CoV-2 Not Detected (Not Detect)
[2022-05-15] MEDS: MethylPREDNISolone 40 MG/ML VIAL IVP SCH ×2 (05:47→16:43)
[2022-05-15 06:01] LABS: VBG HCO3 26 mEq/L (21-27); VBG PCO2 41 mmHg (41-51); VBG PO2 195 mmHg (25-50)
[2022-05-15 06:04] LABS: Prothrombin Time 10.6 Seconds (9.4-12.1)
[2022-05-15 06:21] LABS: Alanine Aminotransferase 24 Units/L (7-52); Albumin 3.9 g/dL (3.5-5.7); Albumin/Globulin Ratio 1.6 (1.1-2.2); Alkaline Phosphatase 37 Units/L (34-104); Aspartate Amino Transferase 12 Units/L (13-39); Bilirubin,Direct 0.1 mg/dL (0.0-0.2); Bilirubin,Indirect 0.5 mg/dL (0.0-1.0); Bilirubin,Total 0.6 mg/dL (0.3-1.0); Globulin 2.4 g/dL (2.4-3.5); Magnesium 2.2 mg/dL (1.6-2.6); Total Protein 6.3 g/dL (6.4-8.9); Troponin I < 0.03 ng/mL (< 0.04)
[2022-05-15 06:30] LABS: Thyroid Stimulating Hormone 0.108 mcIU/mL (0.340-5.600)
[2022-05-15] MEDS: levoFLOXacin 500 MG/100 ML 500 MG/100 ML BAG IVPB SCH (07:40)
[2022-05-15] MEDS: Insulin LISPRO 300 UNITS/3 ML VIAL SUBQ SCH ×3 (07:51→16:43)
[2022-05-15] MEDS: Ipratropium/Albuterol Neb 3 ML IH PRN ×4 (09:06→20:00)
[2022-05-15 09:33] LABS: C-Reactive Protein < 5 mg/L (Less than 10)
[2022-05-15 10:13] LABS: Triiodothyronine (T3) Total 83 ng/dL (87-178)
[2022-05-15] MEDS ORDERED: Saline Nasal Spray 44 ML BOTTLE NS PRN (17:39)
[2022-05-16] MEDS: Ipratropium/Albuterol Neb 3 ML IH PRN ×2 (04:04→08:56)
[2022-05-16 05:02] LABS: Basophils % 0.1 %; Hemoglobin 10.4 g/dL (11.5-15.4); Lymphocytes # 0.7 K/mcL (0.6-4.6); Lymphocytes % 4.5 %; Mean Corpuscular HGB Conc 29.7 g/dL (31.6-35.5); Mean Corpuscular Hemoglobin 23.6 pg (28.0-33.3); Mean Corpuscular Volume 79.5 fL (83.0-100.0); Monocytes # 0.5 K/mcL (0.0-1.3); Monocytes % 3.5 %; Neutrophils # 13.3 K/mcL (1.6-8.9); Platelet Count 212 K/mcL (140-400); Red Cell Distribution Width 18.3 % (11.5-14.5); Segmented Neutrophils % 90.9 %; White Blood Count 14.6 K/mcL (4.3-11.1)
[2022-05-16 05:20] LABS: BUN/Creatinine Ratio 39 (6-26); Blood Urea Nitrogen 22 mg/dL (8-23); Calcium 9.3 mg/dL (8.6-10.3); Carbon Dioxide 28 mEq/L (23-29); Chloride 101 mEq/L (98-107); Glucose 372 mg/dL (70-105); Magnesium 2.1 mg/dL (1.6-2.6); Osmolality,Calculated 301 (280-300); Phosphorous 4.1 mg/dL (2.7-4.5); Potassium 4.4 mEq/L (3.5-5.1); Sodium 136 mEq/L (136-145)
[2022-05-16] MEDS: MethylPREDNISolone 40 MG/ML VIAL IVP SCH ×2 (05:39→17:52)
[2022-05-16] MEDS: Aspirin Enteric Coated 81 MG Tablet PO SCH (08:25)
[2022-05-16] MEDS: carvediloL 6.25 MG TABLET PO SCH ×2 (08:25→17:49)
[2022-05-16] MEDS: Furosemide 40 MG TABLET PO SCH (08:25)
[2022-05-16] MEDS: Cyanocobalamin (B-12) 1,000 MCG TABLET PO SCH (08:25)
[2022-05-16] MEDS: Insulin DETEMIR 100 UNIT/ML X5UNITS SUBQ SCH ×2 (08:25→20:29)
[2022-05-16] MEDS: Insulin LISPRO 300 UNITS/3 ML VIAL SUBQ SCH ×4 (08:26→17:54)
[2022-05-16] MEDS: CYCLOSPORINE 0.05% OP SCH ×2 (08:27→20:30)
[2022-05-16] MEDS: levoFLOXacin 500 MG/100 ML 500 MG/100 ML BAG IVPB SCH (08:28)
[2022-05-16] MEDS: Budesonide/Formoterol 160/4.5 1 PUFF INH IH SCH ×2 (08:56→20:00)
[2022-05-16] MEDS: Ipratropium/Albuterol Neb 3 ML IH SCH ×3 (14:00→20:00)
[2022-05-16] MEDS: *HR* Heparin 5,000 UNIT/ML VIAL SQ SCH (17:52)
[2022-05-16] MEDS: Latanoprost 2.5 ML BOTTLE BOTH EYES SCH (20:30)
[2022-05-16] MEDS: Famotidine 20 MG TABLET PO SCH (20:34)
[2022-05-17] MEDS: Ipratropium/Albuterol Neb 3 ML IH SCH ×6 (00:20→20:42)
[2022-05-17] MEDS: MethylPREDNISolone 40 MG/ML VIAL IVP SCH ×2 (06:32→16:51)
[2022-05-17] MEDS: *HR* Heparin 5,000 UNIT/ML VIAL SQ SCH ×2 (06:33→16:51)
[2022-05-17] MEDS: Budesonide/Formoterol 160/4.5 1 PUFF INH IH SCH ×2 (07:22→20:46)
[2022-05-17] MEDS: carvediloL 6.25 MG TABLET PO SCH ×2 (08:19→16:50)
[2022-05-17] MEDS: Cyanocobalamin (B-12) 1,000 MCG TABLET PO SCH (08:20)
[2022-05-17] MEDS: Aspirin Enteric Coated 81 MG Tablet PO SCH (08:20)
[2022-05-17] MEDS: Furosemide 40 MG TABLET PO SCH (08:20)
[2022-05-17] MEDS: CYCLOSPORINE 0.05% OP SCH ×2 (08:21→23:45)
[2022-05-17] MEDS: Insulin LISPRO 300 UNITS/3 ML VIAL SUBQ SCH ×4 (08:25→16:51)
[2022-05-17] MEDS: Insulin DETEMIR 100 UNIT/ML X5UNITS SUBQ SCH ×2 (08:25→23:45)
[2022-05-17] MEDS: levoFLOXacin 500 MG/100 ML 500 MG/100 ML BAG IVPB SCH (08:27)
[2022-05-17 08:40] LABS: Basophils % 0.2 %; Hematocrit 35.9 % (35.3-44.9); Hemoglobin 10.7 g/dL (11.5-15.4); Immature Granulocytes % 1.2 % (0-4); Lymphocytes # 0.8 K/mcL (0.6-4.6); Mean Corpuscular HGB Conc 29.8 g/dL (31.6-35.5); Mean Corpuscular Hemoglobin 23.4 pg (28.0-33.3); Mean Corpuscular Volume 78.6 fL (83.0-100.0); Mean Platelet Volume 10.1 fL (9.4-12.4); Monocytes # 0.5 K/mcL (0.0-1.3); Monocytes % 3.1 %; Neutrophils # 13.8 K/mcL (1.6-8.9); Platelet Count 232 K/mcL (140-400); Red Blood Count 4.57 M/mcL (3.82-4.97); Red Cell Distribution Width 17.9 % (11.5-14.5); Segmented Neutrophils % 90.5 %; White Blood Count 15.2 K/mcL (4.3-11.1)
[2022-05-17 08:55] LABS: BUN/Creatinine Ratio 57 (6-26); Blood Urea Nitrogen 27 mg/dL (8-23); Calcium 9.3 mg/dL (8.6-10.3); Carbon Dioxide 29 mEq/L (23-29); Chloride 100 mEq/L (98-107); Glucose 209 mg/dL (70-105); Osmolality,Calculated 293 (280-300); Phosphorous 3.9 mg/dL (2.7-4.5); Sodium 136 mEq/L (136-145)
[2022-05-17] MEDS: Famotidine 20 MG TABLET PO SCH (23:45)
[2022-05-17] MEDS: Latanoprost 2.5 ML BOTTLE BOTH EYES SCH (23:45)
[2022-05-18] MEDS: Ipratropium/Albuterol Neb 3 ML IH SCH ×6 (00:45→20:44)
[2022-05-18] MEDS: MethylPREDNISolone 40 MG/ML VIAL IVP SCH ×2 (05:56→18:01)
[2022-05-18] MEDS: *HR* Heparin 5,000 UNIT/ML VIAL SQ SCH ×2 (05:58→18:01)
[2022-05-18 06:37] LABS: Basophils # 0.1 K/mcL (0.0-0.2); Basophils % 0.3 %; Hematocrit 40.4 % (35.3-44.9); Hemoglobin 11.9 g/dL (11.5-15.4); Immature Granulocytes % 1.7 % (0-4); Lymphocytes # 1.1 K/mcL (0.6-4.6); Lymphocytes % 6.5 %; Mean Corpuscular HGB Conc 29.5 g/dL (31.6-35.5); Mean Corpuscular Hemoglobin 23.3 pg (28.0-33.3); Mean Corpuscular Volume 79.1 fL (83.0-100.0); Mean Platelet Volume 9.6 fL (9.4-12.4); Monocytes # 0.7 K/mcL (0.0-1.3); Monocytes % 3.8 %; Neutrophils # 14.8 K/mcL (1.6-8.9); Nucleated Red Blood Cells 0.1 /100 WBC (0); Platelet Count 269 K/mcL (140-400); Red Blood Count 5.11 M/mcL (3.82-4.97); Segmented Neutrophils % 87.7 %; White Blood Count 16.9 K/mcL (4.3-11.1)
[2022-05-18] MEDS: Budesonide/Formoterol 160/4.5 1 PUFF INH IH SCH ×2 (07:23→20:47)
[2022-05-18 07:34] LABS: BUN/Creatinine Ratio 56 (6-26); Blood Urea Nitrogen 32 mg/dL (8-23); Calcium 9.4 mg/dL (8.6-10.3); Carbon Dioxide 33 mEq/L (23-29); Chloride 98 mEq/L (98-107); Glucose 217 mg/dL (70-105); Magnesium 2.1 mg/dL (1.6-2.6); Osmolality,Calculated 299 (280-300); Phosphorous 4.3 mg/dL (2.7-4.5); Potassium 4.2 mEq/L (3.5-5.1); Sodium 138 mEq/L (136-145)
[2022-05-18] MEDS: carvediloL 6.25 MG TABLET PO SCH ×2 (08:57→18:01)
[2022-05-18] MEDS: Insulin LISPRO 300 UNITS/3 ML VIAL SUBQ SCH ×4 (08:57→18:02)
[2022-05-18] MEDS: Furosemide 40 MG TABLET PO SCH (08:57)
[2022-05-18] MEDS: levoFLOXacin 500 MG/100 ML 500 MG/100 ML BAG IVPB SCH (08:57)
[2022-05-18] MEDS: Cyanocobalamin (B-12) 1,000 MCG TABLET PO SCH (08:57)
[2022-05-18] MEDS: Aspirin Enteric Coated 81 MG Tablet PO SCH (08:57)
[2022-05-18] MEDS: Insulin DETEMIR 100 UNIT/ML X5UNITS SUBQ SCH ×2 (08:58→22:52)
[2022-05-18] MEDS: CYCLOSPORINE 0.05% OP SCH ×2 (08:58→22:52)
[2022-05-18] MEDS: Famotidine 20 MG TABLET PO SCH (19:39)
[2022-05-18] MEDS: Latanoprost 2.5 ML BOTTLE BOTH EYES SCH (22:52)
[2022-05-19] MEDS: Ipratropium/Albuterol Neb 3 ML IH SCH ×7 (00:10→23:17)
[2022-05-19] MEDS: MethylPREDNISolone 40 MG/ML VIAL IVP SCH ×2 (05:49→17:13)
[2022-05-19] MEDS: *HR* Heparin 5,000 UNIT/ML VIAL SQ SCH ×2 (05:50→17:13)
[2022-05-19] MEDS: Budesonide/Formoterol 160/4.5 1 PUFF INH IH SCH ×2 (07:51→19:32)
[2022-05-19] MEDS: Furosemide 40 MG TABLET PO SCH (09:52)
[2022-05-19] MEDS: Cyanocobalamin (B-12) 1,000 MCG TABLET PO SCH (09:52)
[2022-05-19] MEDS: levoFLOXacin 500 MG/100 ML 500 MG/100 ML BAG IVPB SCH (09:52)
[2022-05-19] MEDS: Aspirin Enteric Coated 81 MG Tablet PO SCH (09:52)
[2022-05-19] MEDS: CYCLOSPORINE 0.05% OP SCH ×2 (09:53→19:46)
[2022-05-19] MEDS: Insulin LISPRO 300 UNITS/3 ML VIAL SUBQ SCH ×4 (09:53→17:14)
[2022-05-19] MEDS: carvediloL 6.25 MG TABLET PO SCH ×2 (09:56→17:13)
[2022-05-19] MEDS: Insulin DETEMIR 100 UNIT/ML X5UNITS SUBQ SCH ×2 (09:57→19:46)
[2022-05-19] MEDS: Famotidine 20 MG TABLET PO SCH (19:44)
[2022-05-19] MEDS: Latanoprost 2.5 ML BOTTLE BOTH EYES SCH (19:46)
[2022-05-19] MEDS ORDERED: Bismuth Subsalicylate 120 ML ORAL SUSPENSION PO ONE (23:19)
[2022-05-20] MEDS: Ipratropium/Albuterol Neb 3 ML IH SCH ×6 (03:32→23:05)
[2022-05-20] MEDS: *HR* Heparin 5,000 UNIT/ML VIAL SQ SCH ×2 (06:06→17:15)
[2022-05-20] MEDS: MethylPREDNISolone 40 MG/ML VIAL IVP SCH ×2 (06:06→17:16)
[2022-05-20] MEDS: Budesonide/Formoterol 160/4.5 1 PUFF INH IH SCH ×2 (07:22→20:02)
[2022-05-20] MEDS: CYCLOSPORINE 0.05% OP SCH ×2 (07:27→23:20)
[2022-05-20] MEDS: Insulin LISPRO 300 UNITS/3 ML VIAL SUBQ SCH ×4 (08:08→17:15)
[2022-05-20] MEDS: Insulin DETEMIR 100 UNIT/ML X5UNITS SUBQ SCH ×2 (08:08→23:20)
[2022-05-20] MEDS: levoFLOXacin 500 MG/100 ML 500 MG/100 ML BAG IVPB SCH (08:08)
[2022-05-20] MEDS: Cyanocobalamin (B-12) 1,000 MCG TABLET PO SCH (08:09)
[2022-05-20] MEDS: Furosemide 40 MG TABLET PO SCH (08:09)
[2022-05-20] MEDS: Aspirin Enteric Coated 81 MG Tablet PO SCH (08:09)
[2022-05-20] MEDS: carvediloL 6.25 MG TABLET PO SCH ×2 (08:09→17:15)
[2022-05-20 08:59] LABS: Basophils # 0.1 K/mcL (0.0-0.2); Basophils % 0.3 %; Eosinophils % 0.1 %; Hematocrit 38.9 % (35.3-44.9); Hemoglobin 11.6 g/dL (11.5-15.4); Immature Granulocytes % 3.6 % (0-4); Lymphocytes # 0.6 K/mcL (0.6-4.6); Lymphocytes % 3.2 %; Mean Corpuscular HGB Conc 29.8 g/dL (31.6-35.5); Mean Corpuscular Hemoglobin 23.6 pg (28.0-33.3); Mean Corpuscular Volume 79.2 fL (83.0-100.0); Monocytes # 0.6 K/mcL (0.0-1.3); Monocytes % 3.2 %; Neutrophils # 16.2 K/mcL (1.6-8.9); Platelet Count 260 K/mcL (140-400); Red Blood Count 4.91 M/mcL (3.82-4.97); Red Cell Distribution Width 18.5 % (11.5-14.5); Segmented Neutrophils % 89.6 %
[2022-05-20 09:17] LABS: BUN/Creatinine Ratio 65 (6-26); Blood Urea Nitrogen 40 mg/dL (8-23); Calcium 9.7 mg/dL (8.6-10.3); Carbon Dioxide 35 mEq/L (23-29); Chloride 97 mEq/L (98-107); Glucose 256 mg/dL (70-105); Magnesium 2.1 mg/dL (1.6-2.6); Osmolality,Calculated 305 (280-300); Phosphorous 4.3 mg/dL (2.7-4.5); Potassium 4.4 mEq/L (3.5-5.1); Sodium 138 mEq/L (136-145)
[2022-05-20] MEDS: Famotidine 20 MG TABLET PO SCH (23:19)
[2022-05-20] MEDS: Latanoprost 2.5 ML BOTTLE BOTH EYES SCH (23:20)
[2022-05-21] MEDS: Ipratropium/Albuterol Neb 3 ML IH SCH ×3 (03:51→10:58)
[2022-05-21 06:30] VITALS: BP 158/88; PULSE 101; TEMP 98.1
[2022-05-21] MEDS: *HR* Heparin 5,000 UNIT/ML VIAL SQ SCH (06:41)
[2022-05-21] MEDS: CYCLOSPORINE 0.05% OP SCH (07:27)
[2022-05-21] MEDS: Furosemide 40 MG TABLET PO SCH (07:31)
[2022-05-21] MEDS: carvediloL 6.25 MG TABLET PO SCH (07:31)
[2022-05-21] MEDS: Cyanocobalamin (B-12) 1,000 MCG TABLET PO SCH (07:31)
[2022-05-21] MEDS: Aspirin Enteric Coated 81 MG Tablet PO SCH (07:31)
[2022-05-21] MEDS: levoFLOXacin 500 MG/100 ML 500 MG/100 ML BAG IVPB SCH (07:32)
[2022-05-21] MEDS: Budesonide/Formoterol 160/4.5 1 PUFF INH IH SCH (07:40)
[2022-05-21] MEDS ORDERED: predniSONE 20 MG TABLET PO SCH (09:00)
[2022-05-21] MEDS: Insulin LISPRO 300 UNITS/3 ML VIAL SUBQ SCH ×2 (09:35→11:49)
[2022-05-21] MEDS: Insulin DETEMIR 100 UNIT/ML X5UNITS SUBQ SCH (09:35)
[2022-05-21 09:44] LABS: Basophils # 0.1 K/mcL (0.0-0.2); Basophils % 0.6 %; Eosinophils % 0.1 %; Hematocrit 38.9 % (35.3-44.9); Hemoglobin 11.6 g/dL (11.5-15.4); Immature Granulocytes % 4.2 % (0-4); Lymphocytes % 5.8 %; Mean Corpuscular HGB Conc 29.8 g/dL (31.6-35.5); Mean Corpuscular Volume 80.5 fL (83.0-100.0); Mean Platelet Volume 9.6 fL (9.4-12.4); Monocytes # 0.8 K/mcL (0.0-1.3); Monocytes % 4.5 %; Neutrophils # 14.7 K/mcL (1.6-8.9); Nucleated Red Blood Cells 0.2 /100 WBC (0); Platelet Count 246 K/mcL (140-400); Red Blood Count 4.83 M/mcL (3.82-4.97); Red Cell Distribution Width 18.7 % (11.5-14.5); Segmented Neutrophils % 84.8 %; White Blood Count 17.4 K/mcL (4.3-11.1)
[2022-05-21 10:00] LABS: BUN/Creatinine Ratio 59 (6-26); Blood Urea Nitrogen 36 mg/dL (8-23); Calcium 9.6 mg/dL (8.6-10.3); Carbon Dioxide 32 mEq/L (23-29); Chloride 97 mEq/L (98-107); Glucose 290 mg/dL (70-105); Osmolality,Calculated 305 (280-300); Phosphorous 4.4 mg/dL (2.7-4.5); Potassium 4.1 mEq/L (3.5-5.1); Sodium 138 mEq/L (136-145)
[2022-05-21 11:00] VITALS: O2SAT 97
== END 2022-05-21 14:00 | disposition home health service (06) | DRG 871 ==
LOC: EMEROOARM 23:16 → 3BNU 23:16 → SUATTDRO 05-15 02:18 → 3BNU 05-15 02:55 → SUATTDRO 05-16 07:50
PROVIDERS: ADMIT Internal Medicine; ATTEND Internal Medicine